=== PATIENT | female | born 1955 | race Caucasian/White ===

== ENCOUNTER 2018-05-30 18:22 | Emergency (ER) | payer OTHER ==
[2018-05-30 19:38] LABS: Absolute Lymphocytes (CBC) 2.4 K/uL (0.7-4.9); Absolute Monocytes 0.8 K/uL (0.1-1.3); Absolute Neutrophil 6.3 K/uL (1.8-8.0); Basophils % 0.4 % (0-1.3); Eosinophils % 1.4 % (0-4.4); Hematocrit 36.7 % (36.0-45.0); Lymphocytes % 24.7 % (15.3-44.8); MCH 26.9 pg (27.0-35.0); MCV 82.2 fL (80-100); MPV 9.3 fL (7.6-11.3); Monocytes % 8.2 % (3.3-12.3); RBC Red Blood Cell Count 4.47 M/uL (3.86-4.86)
[2018-05-30] MEDS ORDERED: FUROSEMIDE 20 MG/ 2ML VIAL ONE (19:46)
[2018-05-30] MEDS ORDERED: ONDANSETRON 4 MG/2 ML VIAL ONE (19:47)
[2018-05-30 20:11] LABS: Albumin 3.1 g/dL (3.4-5.0); Bilirubin Direct 0.2 mg/dL (0-0.2); Bilirubin Total 0.5 mg/dL (0.2-1.0); Potassium 3.9 mmol/L (3.5-5.1); Protein, Total 7.1 g/dL (6.4-8.2); Troponin (Emerg Dept Use Only) 0.02 ng/mL (0.0-0.045)
[2018-05-30 20:12] LABS: Urine Blood 2+ (NEG); Urine Glucose NEGATIVE (NEG); Urine Protein 2+ (NEG)
[2018-05-30] MEDS ORDERED: NITROGLYCERIN 1 GM PKT TD ONE (20:56)
[2018-05-30] MEDS ORDERED: Magnesium Sulfate 2gm IVPB 2 G/50 ML BAG IV ONE (20:56)
--- NOTE | 2018-05-30 22:02 | RAD REPORT ---
EXAM DESCRIPTION: CT - Abdomen Pelvis W Contrast - 05/30/2018 9:52 pm CLINICAL HISTORY: Abdominal pain. COMPARISON: None. TECHNIQUE: Computed axial tomography of the abdomen and pelvis was obtained. 100 cc Isovue-300 is ad ministered intravenously. Oral contrast was given. All CT scans are performed using dose optimization technique as appropriate and may include automated exposure control or mA/KV adjustment according to patient size. FINDINGS: The liver, spleen, pancreas, left adrenal and kidneys appear unremarkable. A 19 millimeter myelolipom a is present within the right adrenal gland The appendix is normal caliber. There is no evidence of diverticulitis IMPRESSION: No acute abnormality is displayed
--- NOTE | 2018-05-30 22:03 | RAD REPORT ---
EXAM DESCRIPTION: Kylah Single View05/30/2018 7:46 pm CLINICAL HISTORY: sob COMPARISON: None FINDINGS: The lungs appear clear of acute infiltrate. The heart is mildly to moderately enlarged. Postsurgical changes involve the chest. The superior most sternal wires broken IMPRESSION: No acute abnormalities displayed
--- NOTE | 2018-05-30 23:46 | EDPHYS ---
Physician Documentation [facility] Name: Indira Chavis Age: 63 yrs Sex: Female : 1955 Arrival Date: 05/30/2018 Time: 18:28 Bed 15 Private MD: ED Physician London Madrid HPI: 05/30 19:56 This 63 yrs old Female presents to ER via Wheelchair with complaints of rn Shortness Of Breath, Abdominal Pain. 19:56 The patient has shortness of breath at rest, with light activity. Onset: The rn symptoms/episode began/occurred 2 day(s) ago. Duration: The symptoms are intermittent. The patient's shortness of breath is aggravated by light activity. Associated signs and symptoms: Pertinent negatives: productive cough, fever, loss of consciousness. Severity of symptoms: At their worst the symptoms were mild in the emergency department the symptoms are unchanged. The patient has experienced similar episodes in the past. Reports sob, non-productive cough, and abd pain for 2 days, states both happened together it seemed, no fever, had some diarrhea but no BM in last 24 hours, no vomiting, vague abd pain.. Historical: - Allergies: 18:42 No Known Allergies; bp - PMHx: 18:42 CHF; Diabetes - IDDM; High Cholesterol; Hypertension; CAD; BLINDNESS; bp - PSHx: 18:42 CABG; bp - Immunization history:: Adult Immunizations up to date. - Social history:: Smoking status: Patient/guardian denies using tobacco. - Ebola Screening: : Patient negative for fever greater than or equal to 101.5 degrees Fahrenheit, and additional compatible Ebola Virus Disease symptoms Patient denies exposure to infectious person Patient denies travel to an Ebola-affected area in the 21 days before illness onset No symptoms or risks identified at this time. - Family history:: not pertinent. - Hospitalizations: : No recent hospitalization is reported. ROS: 19:56 Constitutional: Negative for fever, chills, and weight loss, Eyes: Negative for injury, rn pain, redness, and discharge, Neck: Negative for injury, pain, and swelling, Cardiovascular: Negative for chest pain, palpitations Respiratory: + sob and cough Abdomen/GI: + abd pain, neg for nausea/vomiting Back: Negative for injury and pain, MS/Extremity: Negative for injury and deformity, Neuro: + generalized weakness, no headache Exam: 19:56 Constitutional: Overweight female no acute distress, mild tachypnea Head/Face: rn Normocephalic, atraumatic. Eyes: Pupils equal round and reactive to light, extra-ocular motions intact. Lids and lashes normal. Conjunctiva and sclera are non-icteric and not injected. Cornea within normal limits. Periorbital areas with no swelling, redness, or edema. ENT: dry MM Cardiovascular: bradycradic, regular, no murmur Respiratory: decreased breath sounds left lung base, + mild tachypnea, no wheezing Abdomen/GI: soft, mild mid abd tenderness, no rebound/guarding/masses MS/ Extremity: Pulses equal, no cyanosis. Neurovascular intact. Full, normal range of motion. Equal circumference with 1+ pitting edema bilaterally Neuro: Awake and alert, GCS 15, oriented to person, place, time, and situation. Motor strength 5/5 in all extremities. Sensory grossly intact. Vital Signs: 18:42 BP 193 / 42; Pulse 53; Resp 24; Temp 97.9; Pulse Ox 99% ; Weight 108.41 kg; Height 5 bp ft. 2 in. (157.48 cm); 19:50 BP 200 / 65; Pulse 50; Resp 20; Pulse Ox 97% on R/A; tl2 20:20 BP 204 / 59; Pulse 53; Resp 14; Pulse Ox 100% on 2 lpm NC; tl2 20:45 BP 195 / 93; Pulse 55; Resp 22; Pulse Ox 98% on 2 lpm NC; tl2 21:47 BP 174 / 52; Pulse 55; Resp 18; Pulse Ox 97% on 2 lpm NC; tl2 22:39 BP 171 / 68; Pulse 55; Resp 20; Pulse Ox 98% on 2 lpm NC; tl2 23:32 BP 176 / 61; Pulse 57; Resp 17; Pulse Ox 94% on R/A; tl2 05/31 00:13 BP 171 / 67; Pulse 55; Resp 18; Pulse Ox 95% on R/A; tl2 05/30 18:42 Body Mass Index 43.71 (108.41 kg, 157.48 cm) bp MDM: 05/30 19:10 Patient medically screened. rn 23:43 Differential diagnosis: Anemia Anxiety Reaction asthma, CHF exacerbation, pneumonia, rn Pneumothorax pulmonary edema. Data reviewed: vital signs, nurses notes, lab test result(s), EKG, radiologic studies, plain films, and as a result, I will discharge patient. Counseling: I had a detailed discussion with the patient and/or guardian regarding: the historical points, exam findings, and any diagnostic results supporting the discharge/admit diagnosis, lab results, radiology results, the need for outpatient follow up, to return to the emergency department if symptoms worsen or persist or if there are any questions or concerns that arise at home. Response to treatment: the patient's symptoms have markedly improved after treatment, and as a result, I will discharge patient. ED course: CT abd and w/u negative for abd complaints, BNP elevated, CXR mild pulmonary edema, offered observation overnight for diuresis, patient states feels much better, has been ambulating here, using bathroom, would like to go home, I recommended to double her lasix over next 3 days and pcp f/u, also given return precautions. . 23:46 ED course: Also recommended daily multivitamin for hypomagnesemia with recheck from rn pcp. . 05/30 18:59 Order name: Urine Dipstick--Ancillary (enter results); Complete Time: 20:22 mt 05/30 19:11 Order name: Basic Metabolic Panel rn 05/30 19:11 Order name: CBC with Diff rn 05/30 19:11 Order name: Hepatic Function; Complete Time: 20:22 rn 05/30 19:11 Order name: Lipase; Complete Time: 20:22 rn 05/30 19:11 Order name: Blood Culture Adult (2) rn 05/30 19:11 Order name: XRAY CXR (1 view); Complete Time: 22:12 rn 05/30 19:11 Order name: Magnesium; Complete Time: 20:22 rn 05/30 19:11 Order name: NT PRO-BNP; Complete Time: 20:22 rn 05/30 19:11 Order name: Troponin (emerg Dept Use Only); Complete Time: 20:22 rn 05/30 19:11 Order name: Basic Metabolic Panel; Complete Time: 20:22 EDVA 05/30 19:11 Order name: CBC with Automated Diff; Complete Time: 20:05 EDMS 05/30 19:12 Order name: CT Abd/Pelvis - W/Contrast; Complete Time: 22:12 rn 05/30 19:11 Order name: IV Saline Lock; Complete Time: 19:23 rn 05/30 19:11 Order name: Labs collected and sent; Complete Time: 19:23 rn 05/30 19:11 Order name: EKG; Complete Time: 19:12 rn 05/30 19:11 Order name: Cardiac monitoring; Complete Time: 19:26 rn 05/30 19:11 Order name: EKG - Nurse/Tech; Complete Time: 19:38 rn 05/30 19:11 Order name: O2 Per Protocol; Complete Time: 19:24 rn 05/30 19:11 Order name: O2 Sat Monitoring; Complete Time: 19:23 rn Administered Medications: 19:43 Drug: Lasix 20 mg Route: IVP; Site: right hand; tl2 19:44 Drug: Zofran 4 mg Route: IVP; Site: right hand; tl2 20:30 Follow up: Response: No adverse reaction; Nausea is decreased tl2 21:00 Drug: Magnesium Sulfate 2 grams Route: IVPB; Infused Over: 2 hrs; Site: right hand; tl2 05/31 00:19 Follow up: IV Status: Completed infusion tl2 05/30 21:00 Drug: Nitro-Bid Ointment 2 % 0.5 inches Route: Transdermal; Site: anterior chest wall; tl2 05/31 00:19 Follow up: Response: No adverse reaction; Blood pressure is lowered tl2 Disposition: 05/30/18 23:45 Discharged to Home. Impression: Dyspnea, unspecified, Unspecified abdominal pain, Pulmonary edema. - Condition is Stable. - Discharge Instructions: Abdominal Pain, Adult, Pulmonary Edema, Shortness of Breath. - Medication Reconciliation Form, Thank You Letter, Antibiotic Education, Prescription Opioid Use form. - Follow up: Private Physician; When: 2 - 3 days; Reason: Recheck today's complaints, Re-evaluation by your physician. - Problem is new. - Symptoms have improved. Signatures: Dispatcher [employer] EDMS London Madrid MD MD rn Knox, Taylor, RN RN tl2 Filemon Carrion RN RN bp Corrections: (The following items were deleted from the chart) 00:20 05/30 23:45 05/30/2018 23:45 Discharged to Home. Impression: Dyspnea, unspecified; tl2 Unspecified abdominal pain; Pulmonary edema. Condition is Stable. Forms are Medication Reconciliation Form, Thank You Letter, Antibiotic Education, Prescription Opioid Use. Follow up: Private Physician; When: 2 - 3 days; Reason: Recheck today's complaints, Re-evaluation by your physician. Problem is new. Symptoms have improved. rn
--- NOTE | 2018-05-30 23:46 | ER ---
Nurse's Notes [facility] Name: Indira Chavis Age: 63 yrs Sex: Female : 1955 Arrival Date: 05/30/2018 Time: 18:28 Bed 15 Private MD: Diagnosis: Dyspnea, unspecified;Unspecified abdominal pain;Pulmonary edema Presentation: 05/30 18:41 Presenting complaint: Patient states: I'M SICK AT MY STOMACH, AND I'M SHAKY AND CAN'T bp CATCH MY BREATH. Transition of care: patient was not received from another setting of care. Onset of symptoms was May 30, 2018. Risk Assessment: Do you want to hurt yourself or someone else? Patient reports no desire to harm self or others. Initial Sepsis Screen: Does the patient meet any 2 criteria? No. Patient's initial sepsis screen is negative. Does the patient have a suspected source of infection? No. Patient's initial sepsis screen is negative. Care prior to arrival: None. 18:41 Method Of Arrival: Wheelchair bp 18:41 Acuity: KERMIT 3 bp Triage Assessment: 19:53 Respiratory: Onset: The symptoms/episode began/occurred yesterday, the patient has mild tl2 shortness of breath. Historical: - Allergies: 18:42 No Known Allergies; bp - PMHx: 18:42 CHF; Diabetes - IDDM; High Cholesterol; Hypertension; CAD; BLINDNESS; bp - PSHx: 18:42 CABG; bp - Immunization history:: Adult Immunizations up to date. - Social history:: Smoking status: Patient/guardian denies using tobacco. - Ebola Screening: : Patient negative for fever greater than or equal to 101.5 degrees Fahrenheit, and additional compatible Ebola Virus Disease symptoms Patient denies exposure to infectious person Patient denies travel to an Ebola-affected area in the 21 days before illness onset No symptoms or risks identified at this time. - Family history:: not pertinent. - Hospitalizations: : No recent hospitalization is reported. Screenin:51 Abuse screen: Denies threats or abuse. Nutritional screening: No deficits noted. tl2 Tuberculosis screening: No symptoms or risk factors identified. Fall Risk IV access (20 points). Assessment: 19:51 General: Appears in no apparent distress. uncomfortable, Behavior is calm, cooperative, tl2 appropriate for age. Pain: Complains of pain in abdomen. Neuro: Level of Consciousness is awake, alert, obeys commands, Oriented to person, place, time, situation. Cardiovascular: Denies chest pain, Rhythm is sinus bradycardia. Respiratory: Reports shortness of breath at rest Airway is patent Respiratory effort is even, unlabored, Respiratory pattern is regular, symmetrical, Breath sounds are clear bilaterally. GI: Reports nausea. : No signs and/or symptoms were reported regarding the genitourinary system. Derm: Skin is pink, warm \T\ dry. 19:59 Reassessment: Pt able to use bedside commode. Pt finished CT contrast, CT notified. tl2 20:19 Reassessment: MD notified of pt's elevated BP, no new orders at this time. Notified MD chaparro of critical lab Magnesium of 1.0. 21:48 Reassessment: Patient appears in no apparent distress at this time. Patient and/or tl2 family updated on plan of care and expected duration. Pain level reassessed. Patient is alert, oriented x 3, equal unlabored respirations, skin warm/dry/pink. Pt states breathing has improved. Patient states feeling better. Patient states symptoms have improved. 23:33 Reassessment: Took pt off O2 to see RA sats. will notify MD if pt becomes hypoxic. tl2 05/31 00:13 Reassessment: Patient appears in no apparent distress at this time. Patient and/or tl2 family updated on plan of care and expected duration. Pain level reassessed. Patient is alert, oriented x 3, equal unlabored respirations, skin warm/dry/pink. O2 on RA staying stable at 94-95%. approved for discharge. Pt verbalized understanding of discharge instructions, need for follow up and need to double lasix dose for 3 days. Nitro paste patch removed and skin cleansed of excess medication. Vital Signs: 05/30 18:42 BP 193 / 42; Pulse 53; Resp 24; Temp 97.9; Pulse Ox 99% ; Weight 108.41 kg; Height 5 bp ft. 2 in. (157.48 cm); 19:50 BP 200 / 65; Pulse 50; Resp 20; Pulse Ox 97% on R/A; tl2 20:20 BP 204 / 59; Pulse 53; Resp 14; Pulse Ox 100% on 2 lpm NC; tl2 20:45 BP 195 / 93; Pulse 55; Resp 22; Pulse Ox 98% on 2 lpm NC; tl2 21:47 BP 174 / 52; Pulse 55; Resp 18; Pulse Ox 97% on 2 lpm NC; tl2 22:39 BP 171 / 68; Pulse 55; Resp 20; Pulse Ox 98% on 2 lpm NC; tl2 23:32 BP 176 / 61; Pulse 57; Resp 17; Pulse Ox 94% on R/A; tl2 05/31 00:13 BP 171 / 67; Pulse 55; Resp 18; Pulse Ox 95% on R/A; tl2 05/30 18:42 Body Mass Index 43.71 (108.41 kg, 157.48 cm) bp ED Course: 05/30 18:28 Patient arrived in ED. as 18:41 Triage completed. bp 18:42 Arm band placed on left wrist. bp 19:03 London Madrid MD is Attending Physician. rn 19:23 Ely Solares RN is Primary Nurse. tl2 19:24 Inserted saline lock: 22 gauge in right hand, using aseptic technique. Blood collected. tl2 19:46 XRAY CXR (1 view) In Process Unspecified. EDMS 19:51 Patient has correct armband on for positive identification. Bed in low position. Call tl2 light in reach. Side rails up X 1. Adult w/ patient. 21:51 CT Abd/Pelvis - W/Contrast In Process Unspecified. EDMS 05/31 00:13 No provider procedures requiring assistance completed. IV discontinued, intact, tl2 bleeding controlled, No redness/swelling at site. Pressure dressing applied. Administered Medications: 05/30 19:43 Drug: Lasix 20 mg Route: IVP; Site: right hand; tl2 19:44 Drug: Zofran 4 mg Route: IVP; Site: right hand; tl2 20:30 Follow up: Response: No adverse reaction; Nausea is decreased tl2 21:00 Drug: Magnesium Sulfate 2 grams Route: IVPB; Infused Over: 2 hrs; Site: right hand; tl2 05/31 00:19 Follow up: IV Status: Completed infusion tl2 05/30 21:00 Drug: Nitro-Bid Ointment 2 % 0.5 inches Route: Transdermal; Site: anterior chest wall; tl2 05/31 00:19 Follow up: Response: No adverse reaction; Blood pressure is lowered tl2 Outcome: 05/30 23:45 Discharge ordered by . rn 05/31 00:13 Discharged to home via wheelchair, with family. tl2 Condition: stable Discharge instructions given to patient, family, Instructed on discharge instructions, follow up and referral plans. Demonstrated understanding of instructions, follow-up care. 00:20 Patient left the ED. tl2 Signatures: Dispatcher [employer] EDMS Judie Gayle Roman, MD MD rn Knox, Taylor, RN RN tl2 Filemon Carrion RN RN bp Corrections: (The following items were deleted from the chart) 00:20 00:13 Reassessment: Patient appears in no apparent distress at this time. Patient tl2 and/or family updated on plan of care and expected duration. Pain level reassessed. Patient is alert, oriented x 3, equal unlabored respirations, skin warm/dry/pink. O2 on RA staying stable at 94-95%. MD approved for discharge tl2
--- NOTE | 2018-05-31 08:39 | EKG ---
Test Date: 2018-05-30 Test Time: 19:31:38 Tongue Lining Stitcher: TRAE MEASUREMENT RESULTS: Intervals: Rate: 53 MD: 150 QRSD: 90 QT: 492 QTc: 461 [place]: P: 56 MD: 150 QRS: -24 T: 263 INTERPRETIVE STATEMENTS: Sinus bradycardia Moderate voltage criteria for LVH, may be normal variant T wave abnormality, consider inferior ischemia T wave abnormality, consider anterior ischemia Abnormal ECG No previous ECG available for comparison Electronically Signed On 05-31-18 08:38:15 CDT by Joss Cody
== END 2018-05-31 00:20 | disposition home or self-care (01) ==
LOC: ER 18:22
DX: J81.1 Chronic pulmonary edema (principal); R10.9 Unspecified abdominal pain; I10 Essential (primary) hypertension; I50.9 Heart failure, unspecified; Z95.1 Presence of aortocoronary bypass graft
CPT/HCPCS: 36415; 71045; 74177; 80048; 80076; 81003; 83690; 83735; 83880; 84484; 85025; 87040 ×2; 93005; J1940; J2405; J3475; Q9967; 96365; 96366; 96375; 99284

== ENCOUNTER 2018-06-29 13:08 | Emergency (ER) | payer OTHER ==
[2018-06-29 14:54] LABS: Absolute Lymphocytes (CBC) 1.9 K/uL (0.7-4.9); Absolute Monocytes 0.9 K/uL (0.1-1.3); Absolute Neutrophil 7.4 K/uL (1.8-8.0); Basophils % 0.7 % (0-1.3); Eosinophils % 0.3 % (0-4.4); Hematocrit 40.9 % (36.0-45.0); Lymphocytes % 18.3 % (15.3-44.8); MCH 27.1 pg (27.0-35.0); MPV 9.5 fL (7.6-11.3); Monocytes % 8.6 % (3.3-12.3); RBC Red Blood Cell Count 5.05 M/uL (3.86-4.86)
[2018-06-29 15:13] LABS: Albumin 3.6 g/dL (3.4-5.0); Bilirubin Total 0.6 mg/dL (0.2-1.0); Potassium 3.8 mmol/L (3.5-5.1)
[2018-06-29 15:34] LABS: Urine Blood TRACE (NEG); Urine Glucose NEGATIVE (NEG)
[2018-06-29 15:34] LABS: Urine Amorphous Sediment 2+ /HPF (NONE SEEN); Urine Bacteria 20-50 /HPF (<20); Urine Culture Reflex Order REFLEXED; Urine Mucus 1+ /HPF (NONE SEEN); Urine RBC <5 /HPF (NONE SEEN)
[2018-06-29 15:35] LABS: Urine Protein NEGATIVE (NEG)
--- NOTE | 2018-06-29 15:57 | RAD REPORT ---
EXAM DESCRIPTION: Kylah Gurrola (2 Views)06/29/2018 3:29 pm CLINICAL HISTORY: Cough COMPARISON: May 2018 FINDINGS: The lungs appear clear of acute infiltrate. The heart is mildly to moderately enlarged. P ostsurgical changes involve chest IMPRESSION: No acute abnormalities displayed
--- NOTE | 2018-06-29 16:44 | ER ---
Nurse's Notes [facility] Name: Indira Chavis Age: 63 yrs Sex: Female : 1955 Arrival Date: 06/29/2018 Time: 13:12 Bed 19 Private MD: None, None Diagnosis: Acute upper respiratory infection, unspecified;Urinary tract infection, site not specified Presentation: 06/29 13:26 Presenting complaint: Child states: "She's had an upset stomach for a couple days and aj1 she's had a dry cough for the past 2 months." Patient states "I have this terrible phlegm in my throat and I can't get it out, I'm sick to my stomach, I'm having diarrhea and being plugged up at the same time" Reports SOB. Transition of care: patient was not received from another setting of care. Onset of symptoms was June 29, 2018. Risk Assessment: Do you want to hurt yourself or someone else? Patient reports no desire to harm self or others. Initial Sepsis Screen: Does the patient meet any 2 criteria? No. Patient's initial sepsis screen is negative. Does the patient have a suspected source of infection? Yes: Productive cough/pneumonia. Care prior to arrival: None. 13:26 Method Of Arrival: Wheelchair aj1 13:26 Acuity: KERMIT 3 aj1 Triage Assessment: 13:27 General: Appears in no apparent distress. uncomfortable, Behavior is calm, cooperative, aj1 appropriate for age. Pain: Complains of pain in back and abdomen Pain currently is 6 out of 10 on a pain scale. Neuro: Level of Consciousness is awake, alert, obeys commands. Cardiovascular: Patient's skin is warm and dry. Respiratory: Airway is patent Respiratory effort is even, unlabored, Respiratory pattern is regular, symmetrical. Historical: - Allergies: 13:27 No Known Allergies; aj1 - PMHx: 13:27 BLINDNESS; CAD; CHF; Diabetes - IDDM; High Cholesterol; Hypertension; aj1 - Immunization history:: Flu vaccine is not up to date. - Social history:: Smoking status: Patient/guardian denies using tobacco. - Ebola Screening: : Patient denies travel to an Ebola-affected area in the 21 days before illness onset. Screenin:10 Abuse screen: Denies threats or abuse. Nutritional screening: No deficits noted. em Tuberculosis screening: No symptoms or risk factors identified. Fall Risk None identified. Assessment: 14:10 General: Appears in no apparent distress. uncomfortable, Behavior is calm, cooperative, em Denies fever. Pain: Complains of pain in abdomen. Neuro: Level of Consciousness is awake, alert, obeys commands, Oriented to person, place, time, situation. Cardiovascular: Heart tones S1 S2 present Patient's skin is warm and dry. Respiratory: Reports shortness of breath at rest cough that is productive, pain with cough Airway is patent Respiratory effort is even, unlabored, Respiratory pattern is regular, symmetrical, Breath sounds are clear bilaterally. Onset: The symptoms/episode began/occurred about a month. GI: Abdomen is obese, Reports constipation, diarrhea, nausea. : No signs and/or symptoms were reported regarding the genitourinary system. EENT: No signs and/or symptoms were reported regarding the EENT system. Derm: Skin is intact, Skin is pink, warm \\T\\ dry. Musculoskeletal: Range of motion: intact in all extremities. 14:20 Reassessment: I agree with previous assessment. hb 15:10 Reassessment: Patient appears in no apparent distress at this time. Patient and/or em family updated on plan of care and expected duration. Pain level reassessed. Patient is alert, oriented x 3, equal unlabored respirations, skin warm/dry/pink. Patient states feeling better. 16:00 Reassessment: Patient appears in no apparent distress at this time. Patient and/or em family updated on plan of care and expected duration. Pain level reassessed. Patient is alert, oriented x 3, equal unlabored respirations, skin warm/dry/pink. Patient states feeling better. Patient states symptoms have improved. Vital Signs: 13:27 BP 141 / 76; Pulse 54; Resp 20; Temp 98.0; Pulse Ox 98% on R/A; Weight 104.33 kg (R); aj1 Height 5 ft. 2 in. (157.48 cm) (R); 14:30 BP 190 / 61; Pulse 57; Resp 20; Pulse Ox 95% on R/A; em 15:41 BP 192 / 54; Pulse 58; Resp 19; Pulse Ox 96% on R/A; Pain 4/10; em 16:30 BP 182 / 61; Pulse 57; Resp 18; Pulse Ox 99% on R/A; Pain 4/10; em 13:27 Body Mass Index 42.07 (104.33 kg, 157.48 cm) aj1 16:30 provider notified of BP em ED Course: 13:12 Patient arrived in ED. sb2 13:13 None, None is Private Physician. sb2 13:27 Triage completed. aj1 13:27 Arm band placed on Patient placed in an exam room. aj1 13:33 Jose Reyes LVN is Primary Nurse. em 14:02 Roberto Adkins NP is PHCP. pm1 14:02 Jhonathan Muniz MD is Attending Physician. pm1 14:10 Patient has correct armband on for positive identification. Placed in gown. Bed in low em position. Call light in reach. Adult w/ patient. 14:50 Initial lab(s) drawn, by me, sent to lab. Missed attempt(s): 22 gauge in left em antecubital area. Bleeding controlled, band aid applied, catheter tip intact. 15:06 Urine collected: clean catch specimen, cloudy. dh3 15:29 Chest Pa And Lat (2 Views) XRAY In Process Unspecified. EDMS 15:33 X-ray completed. Patient tolerated procedure well. mh1 17:10 No provider procedures requiring assistance completed. Patient did not have IV access em during this emergency room visit. Administered Medications: 16:57 Drug: Rocephin (cefTRIAXone) 1 grams Route: IM; Site: right gluteus; em 17:17 Follow up: Response: No adverse reaction em Outcome: 16:44 Discharge ordered by MD. pm1 17:16 Discharged to home via wheelchair, with family. em 17:16 Condition: good 17:16 Discharge instructions given to patient, family, Instructed on discharge instructions, follow up and referral plans. medication usage, Demonstrated understanding of instructions, follow-up care, medications, Prescriptions given X 1. 17:17 Patient left the ED. em Addendum: 07/02/2018 08:20 Addendum: Culture Results: Positive urine culture. No further action required. Bacteria h b sensitive to prescribed antibiotic. Signatures: Dispatcher [employer] EDMO Mellisa Cordoba RN RN aj1 Tasha Arias [facility] Jose Reyes LVN LVN em Roberto Adkins NP FIELD REVIEWER pm1 Heavenly Borrego, RN RN Rochelle Euceda dh3 Katherine Lagos sb2
--- NOTE | 2018-06-29 16:44 | EDPHYS ---
Physician Documentation [facility] Name: Indira Chavis Age: 63 yrs Sex: Female : 1955 Arrival Date: 06/29/2018 Time: 13:12 Bed 19 Private MD: None, None ED Physician Jhonathan Muniz HPI: 06/29 16:30 This 63 yrs old Female presents to ER via Wheelchair with complaints of Flu pm1 Symptoms. 16:30 The patient or guardian reports cough, with no sputum. Onset: The symptoms/episode pm1 began/occurred 6 week(s) ago. Severity of symptoms: in the emergency department the symptoms are unchanged. Modifying factors: The symptoms are alleviated by nothing, the symptoms are aggravated by nothing. Associated signs and symptoms: Pertinent positives: urinary frequency, Pertinent negatives: chest pain, fever. Patient is presenting today with complaints of cough and congestion for the past 6 weeks. Patient with dry cough with the sensation that she needs to cough something up. Patient with urinary frequency with small amounts. Historical: - Allergies: 13:27 No Known Allergies; aj1 - PMHx: 13:27 BLINDNESS; CAD; CHF; Diabetes - IDDM; High Cholesterol; Hypertension; aj1 - Immunization history:: Flu vaccine is not up to date. - Social history:: Smoking status: Patient/guardian denies using tobacco. - Ebola Screening: : Patient denies travel to an Ebola-affected area in the 21 days before illness onset. ROS: 16:30 Constitutional: Negative for fever, chills, and weight loss, Eyes: Negative for injury, pm1 pain, redness, and discharge, ENT: Negative for injury, pain, and discharge, Neck: Negative for injury, pain, and swelling, Cardiovascular: Negative for chest pain, palpitations, and edema, Abdomen/GI: Negative for abdominal pain, nausea, vomiting, diarrhea, and constipation, Back: Negative for injury and pain. 16:30 MS/Extremity: Negative for injury and deformity, Skin: Negative for injury, rash, and discoloration, Neuro: Negative for headache, weakness, numbness, tingling, and seizure. 16:30 Respiratory: Positive for cough, Negative for shortness of breath, sputum production, wheezing. 16:30 : Positive for urinary frequency, small amounts, Negative for burning with urination. Exam: 16:30 Constitutional: This is a well developed, well nourished patient who is awake, alert, pm1 and in no acute distress. Head/Face: Normocephalic, atraumatic. ENT: Nares patent. No nasal discharge, no septal abnormalities noted. Tympanic membranes are normal and external auditory canals are clear. Oropharynx with no redness, swelling, or masses, exudates, or evidence of obstruction, uvula midline. Mucous membranes moist. Neck: Trachea midline, no thyromegaly or masses palpated, and no cervical lymphadenopathy. Supple, full range of motion without nuchal rigidity, or vertebral point tenderness. No Meningismus. Chest/axilla: Normal chest wall appearance and motion. Nontender with no deformity. No lesions are appreciated. Cardiovascular: Regular rate and rhythm with a normal S1 and S2. No gallops, murmurs, or rubs. Normal PMI, no JVD. No pulse deficits. Respiratory: Lungs have equal breath sounds bilaterally, clear to auscultation and percussion. No rales, rhonchi or wheezes noted. No increased work of breathing, no retractions or nasal flaring. Abdomen/GI: Soft, non-tender, with normal bowel sounds. No distension or tympany. No guarding or rebound. No evidence of tenderness throughout. Back: No spinal tenderness. No costovertebral tenderness. Full range of motion. Skin: Warm, dry with normal turgor. Normal color with no rashes, no lesions, and no evidence of cellulitis. MS/ Extremity: Pulses equal, no cyanosis. Neurovascular intact. Full, normal range of motion. 16:30 Neuro: Orientation: is normal, Motor: is normal, moves all fours. Vital Signs: 13:27 BP 141 / 76; Pulse 54; Resp 20; Temp 98.0; Pulse Ox 98% on R/A; Weight 104.33 kg (R); aj1 Height 5 ft. 2 in. (157.48 cm) (R); 14:30 BP 190 / 61; Pulse 57; Resp 20; Pulse Ox 95% on R/A; em 15:41 BP 192 / 54; Pulse 58; Resp 19; Pulse Ox 96% on R/A; Pain 4/10; em 16:30 BP 182 / 61; Pulse 57; Resp 18; Pulse Ox 99% on R/A; Pain 4/10; em 13:27 Body Mass Index 42.07 (104.33 kg, 157.48 cm) aj1 16:30 provider notified of BP em MDM: 14:03 Patient medically screened. pm1 16:43 Data reviewed: vital signs. Data interpreted: Pulse oximetry: on room air is 96 %. pm1 Interpretation: normal. Counseling: I had a detailed discussion with the patient and/or guardian regarding: the historical points, exam findings, and any diagnostic results supporting the discharge/admit diagnosis, lab results, radiology results, the need for outpatient follow up, to return to the emergency department if symptoms worsen or persist or if there are any questions or concerns that arise at home. 06/29 14:22 Order name: Flu; Complete Time: 16:10 pm1 06/29 14:22 Order name: CBC with Diff; Complete Time: 16:10 pm1 06/29 14:22 Order name: CMP; Complete Time: 16:10 pm1 06/29 14:22 Order name: Urine Microscopic Only; Complete Time: 16:10 pm1 06/29 15:21 Order name: Urine Dipstick--Ancillary (enter results); Complete Time: 16:10 gm 06/29 15:36 Order name: Urine Culture EDMS 06/29 14:22 Order name: Chest Pa And Lat (2 Views) XRAY; Complete Time: 16:10 pm1 06/29 14:22 Order name: Urine Dipstick-Ancillary (obtain specimen); Complete Time: 15:01 pm1 06/29 14:22 Order name: IV Saline Lock; Complete Time: 16:52 pm1 Administered Medications: 16:57 Drug: Rocephin (cefTRIAXone) 1 grams Route: IM; Site: right gluteus; em 17:17 Follow up: Response: No adverse reaction em Disposition: 06/30 10:08 Co-signature as Attending Physician, Jhonathan Muniz MD I agree with the assessment and kdr plan of care. Disposition: 06/29/18 16:44 Discharged to Home. Impression: Acute upper respiratory infection, unspecified, Urinary tract infection, site not specified. - Condition is Stable. - Discharge Instructions: Urinary Tract Infection, Adult, Upper Respiratory Infection, Adult, [id number]. - Prescriptions for Bactrim DS 800- 160 mg Oral Tablet - take 1 tablet by ORAL route every 12 hours for 10 days; 20 tablet. - Medication Reconciliation Form, Thank You Letter, Antibiotic Education form. - Follow up: Emergency Department; When: As needed; Reason: Worsening of condition. Follow up: Private Physician; When: 2 - 3 days; Reason: Recheck today's complaints, Continuance of care, Re-evaluation by your physician. - Problem is new. - Symptoms have improved. Signatures: Dispatcher [employer] EDMellisa Jones RN RN aj1 Jhonathan Muniz MD MD kdr Munoz, Edgar, CONVOLUTE TUBE WINDER CONVOLUTE TUBE WINDER em Roberto Adkins, PROJECT PLANNER PROJECT PLANNER pm1 Corrections: (The following items were deleted from the chart) 06/29 17:17 16:44 06/29/2018 16:44 Discharged to Home. Impression: Acute upper respiratory em infection, unspecified; Urinary tract infection, site not specified. Condition is Stable. Forms are Medication Reconciliation Form, Thank You Letter, Antibiotic Education, Prescription Opioid Use. Follow up: Emergency Department; When: As needed; Reason: Worsening of condition. Follow up: Private Physician; When: 2 - 3 days; Reason: Recheck today's complaints, Continuance of care, Re-evaluation by your physician. Problem is new. Symptoms have improved. pm1
[2018-06-29] MEDS ORDERED: CEFTRIAXONE 1000 MG/VIAL ONE (16:55)
[2018-06-29] MEDS ORDERED: LIDOCAINE 1% MPF 2 ML AMPULE ONE (16:56)
== END 2018-06-29 17:17 | disposition home or self-care (01) ==
LOC: ER 13:08
DX: J06.9 Acute upper respiratory infection, unspecified (principal); N39.0 Urinary tract infection, site not specified; I10 Essential (primary) hypertension
CPT/HCPCS: 36415; 71046; 80053; 85025; 87077; 87086; 87088; 87186; 87804 ×2; 96372; 99284; J2001; 81003; 81015

== ENCOUNTER 2018-07-09 14:21 | Emergency (ER) | payer OTHER ==
[2018-07-09 15:08] LABS: Absolute Lymphocytes (CBC) 2.7 K/uL (0.7-4.9); Absolute Monocytes 0.9 K/uL (0.1-1.3); Absolute Neutrophil 5.9 K/uL (1.8-8.0); Basophils % 0.8 % (0-1.3); Eosinophils % 1.3 % (0-4.4); Hematocrit 42.3 % (36.0-45.0); Lymphocytes % 27.9 % (15.3-44.8); MCH 26.6 pg (27.0-35.0); MCV 81.6 fL (80-100); MPV 9.2 fL (7.6-11.3); Monocytes % 9.5 % (3.3-12.3); RBC Red Blood Cell Count 5.19 M/uL (3.86-4.86)
[2018-07-09 15:11] LABS: Protime INR 1.08
--- NOTE | 2018-07-09 15:15 | RAD REPORT ---
EXAM DESCRIPTION: RAD - Chest Single View - 07/09/2018 3:02 pm CLINICAL HISTORY: COUGH Chest pain. COMPARISON: Chest Pa And Lat (2 Views) dated 06/29/2018; Chest Single View dated 05/30/2018 FINDINGS: Portable technique limits examination quality. The lungs are underinflated with results in vascular crowding. The heart is upper limit normal in siz e with sternotomy wires present. No displaced fractures. IMPRESSION: Underinflated lungs.
[2018-07-09 15:26] LABS: ALT/SGPT 21 U/L (12-78); AST/SGOT 14 U/L (15-37); Albumin 3.5 g/dL (3.4-5.0); Alkaline Phosphatase 64 U/L (45-117); BUN Blood Urea Nitrogen 27 mg/dL (7-18); Bicarbonate 25 mmol/L (21-32); Bilirubin Direct 0.1 mg/dL (0-0.2); Bilirubin Total 0.5 mg/dL (0.2-1.0); Glucose Level 57 mg/dL (74-106); NT PRO-BNP 742 pg/mL (<125); Potassium 3.7 mmol/L (3.5-5.1); Protein, Total 7.7 g/dL (6.4-8.2); Sodium Level 140 mmol/L (136-145); Troponin (Emerg Dept Use Only) < 0.02 ng/mL (0.0-0.045)
[2018-07-09] MEDS ORDERED: Magnesium Sulfate 2gm IVPB 4 G/100 ML BAG IV ONE (15:42)
--- NOTE | 2018-07-09 16:13 | EDPHYS ---
Physician Documentation [facility] Name: Indira Chavis Age: 63 yrs Sex: Female : 1955 Arrival Date: 07/09/2018 Time: 14:22 Bed 17 Private MD: None, None ED Physician Chris Valentin HPI: 07/09 15:30 This 63 yrs old Female presents to ER via Wheelchair with complaints of Chest pm1 Pain. 15:30 The patient or guardian reports chest pain that is located primarily in the anterior pm1 chest wall, right. Onset: yesterday. The pain does not radiate. Associated signs and symptoms: Pertinent positives: cough, Pertinent negatives: abdominal pain, diaphoresis, dizziness, nausea, shortness of breath, vomiting. The chest pain is described as sharp. Duration: The patient or guardian reports a single episode, that is still ongoing. Modifying factors: the symptoms are aggravated by cough, deep breath, palpation of area, moving right arm. The patient has been recently seen at the [facility] Emergency Department, 8 days ago for cough and diagnosed with URI. Historical: - Allergies: 14:24 No Known Allergies; la1 - PMHx: 14:24 BLINDNESS; CAD; CHF; Diabetes - IDDM; High Cholesterol; Hypertension; Hypothyroidism; la1 - Immunization history:: Adult Immunizations up to date. - Social history:: Smoking status: Patient/guardian denies using tobacco. - Ebola Screening: : No symptoms or risks identified at this time. ROS: 15:30 Constitutional: Negative for fever, chills, and weight loss, Eyes: Negative for injury, pm1 pain, redness, and discharge, ENT: Negative for injury, pain, and discharge, Neck: Negative for injury, pain, and swelling, Abdomen/GI: Negative for abdominal pain, nausea, vomiting, diarrhea, and constipation. 15:30 Back: Negative for injury and pain, : Negative for injury, bleeding, discharge, and swelling, MS/Extremity: Negative for injury and deformity, Skin: Negative for injury, rash, and discoloration, Neuro: Negative for headache, weakness, numbness, tingling, and seizure. 15:30 Cardiovascular: Positive for chest pain, Negative for edema, orthopnea, palpitations. 15:30 Respiratory: Positive for cough, Negative for shortness of breath, sputum production, wheezing. Exam: 15:30 Constitutional: This is a well developed, well nourished patient who is awake, alert, pm1 and in no acute distress. Head/Face: Normocephalic, atraumatic. Eyes: Pupils equal round and reactive to light, extra-ocular motions intact. Lids and lashes normal. Conjunctiva and sclera are non-icteric and not injected. Cornea within normal limits. Periorbital areas with no swelling, redness, or edema. ENT: Nares patent. No nasal discharge, no septal abnormalities noted. Tympanic membranes are normal and external auditory canals are clear. Oropharynx with no redness, swelling, or masses, exudates, or evidence of obstruction, uvula midline. Mucous membranes moist. Neck: Trachea midline, no thyromegaly or masses palpated, and no cervical lymphadenopathy. Supple, full range of motion without nuchal rigidity, or vertebral point tenderness. No Meningismus. 15:30 Cardiovascular: Regular rate and rhythm with a normal S1 and S2. No gallops, murmurs, or rubs. Normal PMI, no JVD. No pulse deficits. Respiratory: Lungs have equal breath sounds bilaterally, clear to auscultation and percussion. No rales, rhonchi or wheezes noted. No increased work of breathing, no retractions or nasal flaring. Abdomen/GI: Soft, non-tender, with normal bowel sounds. No distension or tympany. No guarding or rebound. No evidence of tenderness throughout. Back: No spinal tenderness. No costovertebral tenderness. Full range of motion. Skin: Warm, dry with normal turgor. Normal color with no rashes, no lesions, and no evidence of cellulitis. MS/ Extremity: Pulses equal, no cyanosis. Neurovascular intact. Full, normal range of motion. 15:30 Chest/axilla: Inspection: normal, Palpation: crepitus, is not appreciated, tenderness, that is moderate, of the anterior aspect of right upper chest, that totally reproduces the patient's complaints. 15:30 Neuro: Orientation: is normal, Motor: moves all fours, Sensation: is normal, no obvious gross deficits. Vital Signs: 14:26 Pulse 57; Resp 18; Temp 97.4; Pulse Ox 98% on R/A; Weight 104.33 kg; Height 5 ft. 2 in. la1 (157.48 cm); 14:27 BP 144 / 55; la1 16:04 BP 135 / 55; Pulse 53; Resp 16; Pulse Ox 95% on R/A; Pain 7/10; em 16:45 BP 164 / 52; Pulse 53; Resp 17; Pulse Ox 95% on R/A; Pain 7/10; ph 17:31 BP 143 / 55; Pulse 52; Resp 18; Pulse Ox 99% on R/A; Pain 0/10; ph 14:26 Body Mass Index 42.07 (104.33 kg, 157.48 cm) la1 MDM: 14:31 Patient medically screened. pm1 16:10 Data reviewed: vital signs. Data interpreted: Pulse oximetry: on room air is 98 %. pm1 Interpretation: normal. Counseling: I had a detailed discussion with the patient and/or guardian regarding: the historical points, exam findings, and any diagnostic results supporting the discharge/admit diagnosis, lab results, radiology results, the need for outpatient follow up, to return to the emergency department if symptoms worsen or persist or if there are any questions or concerns that arise at home. 16:39 Differential diagnosis: acute myocardial infarction, acute pericarditis, coronary pm1 artery disease chest wall pain, congestive heart failure pneumonia, URI. 07/09 14:43 Order name: Basic Metabolic Panel; Complete Time: 15:31 pm1 07/09 14:43 Order name: CBC with Diff; Complete Time: 15:17 pm1 07/09 14:43 Order name: LFT's; Complete Time: 15:31 pm1 07/09 14:43 Order name: Magnesium; Complete Time: 15:31 pm1 07/09 14:43 Order name: NT PRO-BNP; Complete Time: 15:31 pm1 07/09 14:43 Order name: PT-INR; Complete Time: 15:26 pm1 07/09 14:43 Order name: Troponin (emerg Dept Use Only); Complete Time: 15:31 pm1 07/09 14:43 Order name: XRAY Chest (1 view); Complete Time: 15:17 pm1 07/09 14:43 Order name: EKG; Complete Time: 14:44 pm1 07/09 14:43 Order name: Cardiac monitoring; Complete Time: 15:01 pm1 07/09 14:43 Order name: EKG - Nurse/Tech; Complete Time: 15:00 pm1 07/09 14:43 Order name: Flu; Complete Time: 15:31 pm1 07/09 14:43 Order name: IV Saline Lock; Complete Time: 15:00 pm1 07/09 14:43 Order name: Labs collected and sent; Complete Time: 15:00 pm1 07/09 14:43 Order name: O2 Per Protocol; Complete Time: 15:00 pm1 07/09 14:43 Order name: O2 Sat Monitoring; Complete Time: 15:00 pm1 Administered Medications: 15:50 Drug: Magnesium Sulfate 2 grams Route: IVPB; Infused Over: 2 hrs; Site: right em antecubital; 17:33 Follow up: Response: No adverse reaction; IV Status: Completed infusion; IV Intake: ph 200ml 16:59 Drug: TORadol 15 mg Route: IVP; Site: right antecubital; ss 17:34 Follow up: Response: No adverse reaction; Pain is decreased ph Disposition: 07/10 11:13 Co-signature as Attending Physician, Chris Valentin MD. Disposition: 07/09/18 16:12 Discharged to Home. Impression: Hypomagnesemia, Cough, Atypical chest pain. - Condition is Stable. - Discharge Instructions: Nonspecific Chest Pain, Chest Wall Pain, Hypomagnesemia, Cough, Adult. - Medication Reconciliation Form, Thank You Letter form. - Follow up: Emergency Department; When: As needed; Reason: Worsening of condition. Follow up: Private Physician; When: 2 - 3 days; Reason: Recheck today's complaints, Continuance of care, Re-evaluation by your physician. - Problem is new. - Symptoms have improved. Signatures: Dispatcher [employer] EDGA Jose Reyes, ONCOLOGY CONSULTANT ONCOLOGY CONSULTANT Chey Dorsey RN RN ss Attema, Lee, RN RN Celine Murphy RN RN Roberto Ta, PUBLIC AREA SUPERVISOR PUBLIC AREA SUPERVISOR pm1 Chris Valentin MD MD Corrections: (The following items were deleted from the chart) 07/09 16:16 16:12 07/09/2018 16:12 Discharged to Home. Impression: Hypomagnesemia; Cough. Condition pm1 is Stable. Forms are Medication Reconciliation Form, Thank You Letter, Antibiotic Education, Prescription Opioid Use. Follow up: Emergency Department; When: As needed; Reason: Worsening of condition. Follow up: Private Physician; When: 2 - 3 days; Reason: Recheck today's complaints, Continuance of care, Re-evaluation by your physician. Problem is new. Symptoms have improved. pm1 16:16 16:16 07/09/2018 16:12 Discharged to Home. Impression: Hypomagnesemia; Cough. Condition pm1 is Stable. Forms are Medication Reconciliation Form, Thank You Letter, Antibiotic Education, Prescription Opioid Use. Follow up: Emergency Department; When: As needed; Reason: Worsening of condition. Follow up: Private Physician; When: 2 - 3 days; Reason: Recheck today's complaints, Continuance of care, Re-evaluation by your physician. Problem is new. Symptoms have improved. pm1 17:34 16:16 07/09/2018 16:12 Discharged to Home. Impression: Hypomagnesemia; Cough; Atypical ph chest pain. Condition is Stable. Forms are Medication Reconciliation Form, Thank You Letter, Antibiotic Education, Prescription Opioid Use. Follow up: Emergency Department; When: As needed; Reason: Worsening of condition. Follow up: Private Physician; When: 2 - 3 days; Reason: Recheck today's complaints, Continuance of care, Re-evaluation by your physician. Problem is new. Symptoms have improved. pm1
--- NOTE | 2018-07-09 16:13 | ER ---
Nurse's Notes [facility] Name: Indira Chavis Age: 63 yrs Sex: Female : 1955 Arrival Date: 07/09/2018 Time: 14:22 Bed 17 Private MD: None, None Diagnosis: Hypomagnesemia;Cough;Atypical chest pain Presentation: 07/09 14:24 Presenting complaint: Patient states: I have been coughing a lot for the last 3 weeks la1 and yesterday I started have a poking pain in my chest. Pt denies SOB. Transition of care: patient was not received from another setting of care. Onset of symptoms was July 09, 2018. Risk Assessment: Do you want to hurt yourself or someone else? Patient reports no desire to harm self or others. Initial Sepsis Screen: Does the patient meet any 2 criteria? No. Patient's initial sepsis screen is negative. Does the patient have a suspected source of infection? No. Patient's initial sepsis screen is negative. Care prior to arrival: None. 14:24 Method Of Arrival: Wheelchair la1 14:24 Acuity: [place] 3 la1 Historical: - Allergies: 14:24 No Known Allergies; la1 - PMHx: 14:24 BLINDNESS; CAD; CHF; Diabetes - IDDM; High Cholesterol; Hypertension; Hypothyroidism; la1 - Immunization history:: Adult Immunizations up to date. - Social history:: Smoking status: Patient/guardian denies using tobacco. - Ebola Screening: : No symptoms or risks identified at this time. Screenin:53 Abuse screen: Denies threats or abuse. Nutritional screening: No deficits noted. em Tuberculosis screening: No symptoms or risk factors identified. Fall Risk None identified. Assessment: 14:49 General: Appears in no apparent distress. comfortable, Behavior is calm, cooperative, em Reports feeling ill for fatigue for Denies fever. Pain: Complains of pain in chest Pain does not radiate. Pain currently is 7 out of 10 on a pain scale. Quality of pain is described as pressure, Pain began. Neuro: Level of Consciousness is awake, alert, obeys commands, Oriented to person, place, time, situation, Speech is normal, Facial symmetry appears normal, Reports. Cardiovascular: Heart tones S1 S2 present Capillary refill < 3 seconds Patient's skin is warm and dry. Rhythm is sinus bradycardia. Respiratory: Airway is patent Respiratory effort is even, unlabored, Respiratory pattern is regular, symmetrical, Breath sounds are clear bilaterally. GI: Reports nausea, Patient currently denies diarrhea, vomiting. : No signs and/or symptoms were reported regarding the genitourinary system. Derm: Skin is intact, Skin is pink, warm \T\ dry. Musculoskeletal: Capillary refill < 3 seconds, Range of motion: intact in all extremities. 14:52 General: The previous assessment is accurate. Call light remains within reach. . ss 15:30 Reassessment: Roebrto Adkins NP notified of critical Mag value, 1.0. ss 15:40 Reassessment: Patient appears in no apparent distress at this time. Patient and/or em family updated on plan of care and expected duration. Pain level reassessed. Patient is alert, oriented x 3, equal unlabored respirations, skin warm/dry/pink. pt ambulated to restroom with assistance, tolerated well. 16:38 Reassessment: Patient appears in no apparent distress at this time. Patient and/or em family updated on plan of care and expected duration. Pain level reassessed. Patient is alert, oriented x 3, equal unlabored respirations, skin warm/dry/pink. pt discharged, pending completion of IV magnesium. 17:30 Reassessment: Patient appears in no apparent distress at this time. Patient and/or ph family updated on plan of care and expected duration. Pain level reassessed. Patient is alert, oriented x 3, equal unlabored respirations, skin warm/dry/pink. rates pain 0/10 Patient states feeling better. Patient states symptoms have improved. Vital Signs: 14:26 Pulse 57; Resp 18; Temp 97.4; Pulse Ox 98% on R/A; Weight 104.33 kg; Height 5 ft. 2 in. la1 (157.48 cm); 14:27 BP 144 / 55; la1 16:04 BP 135 / 55; Pulse 53; Resp 16; Pulse Ox 95% on R/A; Pain 7/10; em 16:45 BP 164 / 52; Pulse 53; Resp 17; Pulse Ox 95% on R/A; Pain 7/10; ph 17:31 BP 143 / 55; Pulse 52; Resp 18; Pulse Ox 99% on R/A; Pain 0/10; ph 14:26 Body Mass Index 42.07 (104.33 kg, 157.48 cm) la1 ED Course: 14:22 Patient arrived in ED. mr 14:22 None, None is Private Physician. mr 14:25 Triage completed. la1 14:25 Arm band placed on left wrist. la1 14:30 Roberto Adkins NP is PHCP. pm1 14:30 Chris Valentin MD is Attending Physician. pm1 14:37 Jose Reyes LVN is Primary Nurse. em 14:53 Patient has correct armband on for positive identification. molder feeder on. Pulse em ox on. NIBP on. 14:53 Patient maintains SpO2 saturation greater than 95% on room air. em 14:56 Initial lab(s) drawn, by me, sent to lab. Flu and/or RSV swab sent to lab. Inserted dh3 saline lock: 22 gauge in right antecubital area, using aseptic technique. Blood collected. 15:02 XRAY Chest (1 view) In Process Unspecified. EDMS 17:32 No provider procedures requiring assistance completed. IV discontinued, intact, ph bleeding controlled, No redness/swelling at site. Pressure dressing applied. Administered Medications: 15:50 Drug: Magnesium Sulfate 2 grams Route: IVPB; Infused Over: 2 hrs; Site: right em antecubital; 17:33 Follow up: Response: No adverse reaction; IV Status: Completed infusion; IV Intake: ph 200ml 16:59 Drug: TORadol 15 mg Route: IVP; Site: right antecubital; ss 17:34 Follow up: Response: No adverse reaction; Pain is decreased ph Intake: 17:33 IV: 200ml; Total: 200ml. ph Outcome: 16:12 Discharge ordered by . pm1 17:32 Discharged to home via wheelchair, with family. ph 17:32 Condition: good 17:32 Discharge instructions given to patient, family, Instructed on discharge instructions, follow up and referral plans. Demonstrated understanding of instructions, follow-up care. 17:34 Patient left the ED. ph Signatures: Dispatcher [employer] Juliette Linda mr Jose Reyes LVN LVN em Chey Carolina RN RN ss Trip Ashley RN RN la1 Celine Herron RN RN Roberto Adkins, [facility] N[facility] pm1 Rochelle Briseno dh3 Corrections: (The following items were deleted from the chart) 16:39 16:36 Reassessment: Patient appears in no apparent distress at this time. Patient em and/or family updated on plan of care and expected duration. Pain level reassessed. Patient is alert, oriented x 3, equal unlabored respirations, skin warm/dry/pink. pt calling for a ride home em 17:14 17:13 Reassessment: [facility]
[2018-07-09] MEDS ORDERED: KETOROLAC 30 MG/ML INJ ONE (16:56)
--- NOTE | 2018-07-09 20:20 | EKG ---
Test Date: 2018-07-09 Test Time: 14:33:05 Heavy Equipment Diesel Mechanic: NICK MEASUREMENT RESULTS: Intervals: Rate: 56 NE: 138 QRSD: 94 QT: 406 QTc: 391 [place]: P: 37 NE: 138 QRS: -23 T: 265 INTERPRETIVE STATEMENTS: Sinus bradycardia Voltage criteria for left ventricular hypertrophy T wave abnormality, consider inferior ischemia Abnormal ECG Compared to ECG 05/30/2018 19:31:38 No significant changes Electronically Signed On 07-09-18 20:19:41 FITTER/WELDER by Joss Cody
== END 2018-07-09 17:34 | disposition home or self-care (01) ==
LOC: ER 14:21
DX: E83.42 Hypomagnesemia (principal); R07.89 Other chest pain; R05 Cough; R94.31 Abnormal electrocardiogram [ECG] [EKG]; R00.1 Bradycardia, unspecified; J98.4 Other disorders of lung
CPT/HCPCS: 36415; 71045; 80048; 80076; 83735; 83880; 84484; 85025; 85610; 87804 ×2; 93005; 96365; 96366; 96375; 99285; J3475

== ENCOUNTER 2018-08-02 07:56 | Emergency (ER) | payer OTHER ==
[2018-08-02] MEDS ORDERED: METOPROLOL TAR 50 MG TAB ONE (08:32)
[2018-08-02] MEDS ORDERED: ONDANSETRON 4 MG (ODT) TAB ONE (08:32)
[2018-08-02] MEDS ORDERED: LISINOPRIL 20 MG TAB ONE (08:32)
[2018-08-02 08:46] LABS: Urine Blood TRACE (NEG); Urine Glucose NEGATIVE (NEG); Urine Protein 1+ (NEG); Urine pH 5.5 (5.0-7.0)
[2018-08-02 08:47] LABS: Urine Bacteria 20-50 /HPF (<20); Urine RBC <5 /HPF (NONE SEEN)
[2018-08-02 08:48] LABS: Urine Culture Reflex Order NOT NEEDED
[2018-08-02 09:25] LABS: Albumin 3.3 g/dL (3.4-5.0); Bilirubin Direct 0.2 mg/dL (0-0.2); Bilirubin Total 0.5 mg/dL (0.2-1.0); Protein, Total 7.2 g/dL (6.4-8.2)
[2018-08-02 09:47] LABS: Absolute Lymphocytes (CBC) 2.1 K/uL (0.7-4.9); Absolute Monocytes 0.7 K/uL (0.1-1.3); Absolute Neutrophil 7.1 K/uL (1.8-8.0); Basophils % 1.5 % (0-1.3); Eosinophils % 0.7 % (0-4.4); Hematocrit 39.5 % (36.0-45.0); Lymphocytes % 20.4 % (15.3-44.8); MCH 27.3 pg (27.0-35.0); MCV 80.8 fL (80-100); MPV 9.3 fL (7.6-11.3); Monocytes % 7.2 % (3.3-12.3); RBC Red Blood Cell Count 4.89 M/uL (3.86-4.86)
--- NOTE | 2018-08-02 10:50 | RAD REPORT ---
EXAM DESCRIPTION: CTAbdomen Pelvis W Contrast - 08/02/2018 10:40 am CLINICAL HISTORY: Abdominal pain. ABD PAIN COMPARISON: Abdomen Pelvis W Contrast dated 05/30/2018 TECHNIQUE: Biphasic CT imaging of the abdomen and pelvis was performed with 100 ml non-ionic IV cont rast. All CT scans are performed using dose optimization technique as appropriate and may include automated exposure control or mA/KV adjustment according to patient size. FINDINGS: The lung bases are clear. The liver, spleen, pancreas and kidneys are within normal limits. Subtle nodularity is seen affecting the left adrenal gland, unchanged. 24 x 15 mm benign-appearing fat containing right adrenal mass lik ravin a myelolipoma. No bowel obstruction, free air, free fluid or abscess. Aortic atherosclerosis. The appendix is normal . Scattered colonic diverticula. No evidence of diverticulitis. No evidence of significant lymphadeno oleg. Moderate lumbar degenerative changes. IMPRESSION: No acute intra-abdominal or pelvic finding.
--- NOTE | 2018-08-02 11:00 | ER ---
Nurse's Notes [facility] Name: Indira Chavis Age: 63 yrs Sex: Female : 1955 Arrival Date: 08/02/2018 Time: 07:59 Bed 15 Private MD: None, None Diagnosis: Urinary tract infection, site not specified Presentation: 08/02 08:12 Presenting complaint: Patient states: Prescribed Bactrim 4 weeks ago for a UTI, took it jl7 for 3 days and made her feel worse so she stopped. Started having right low back pain 5 days ago, nausea, fever and chills started 3 days ago and reports urine odor is strong. Has not taken HTN medication in 3 or 4 days. Transition of care: patient was not received from another setting of care. Onset of symptoms was July 06, 2018. Risk Assessment: Do you want to hurt yourself or someone else? Patient reports no desire to harm self or others. Care prior to arrival: None. 08:12 Method Of Arrival: Ambulatory jl7 08:12 Acuity: KERMIT 3 jl7 12:20 Initial Sepsis Screen: Does the patient meet any 2 criteria? No. Patient's initial bp sepsis screen is negative. Does the patient have a suspected source of infection? No. Patient's initial sepsis screen is negative. Triage Assessment: 08:15 General: Appears distressed, uncomfortable, obese, Behavior is cooperative, appropriate bp for age, anxious. Pain: Complains of pain in back. Neuro: Level of Consciousness is awake, alert, obeys commands, Oriented to person, place, time, situation, Appropriate for age. Cardiovascular: No deficits noted. Respiratory: Airway is patent Respiratory effort is even, unlabored, Respiratory pattern is regular, symmetrical. GI: Reports nausea. : Reports burning with urination, pain in right flank(s). Derm: No deficits noted. Musculoskeletal: Circulation, motion, and sensation intact. Range of motion: intact in all extremities. Historical: - Allergies: 08:14 No Known Allergies; jl7 - PMHx: 08:14 BLINDNESS; CAD; CHF; Diabetes - IDDM; High Cholesterol; Hypertension; Hypothyroidism; jl7 - Immunization history:: Adult Immunizations up to date. - Ebola Screening: : No symptoms or risks identified at this time. - Family history:: not pertinent. - Social history:: Smoking status: unknown. - Hospitalizations: : No recent hospitalization is reported. Screenin:15 Abuse screen: Denies threats or abuse. Denies injuries from another. Nutritional bp screening: No deficits noted. Tuberculosis screening: No symptoms or risk factors identified. Fall Risk None identified. Assessment: 08:15 General: SEE TRIAGE NOTE. bp 08:15 GI: Abdomen is obese, Bowel sounds present X 4 quads. bp 09:00 Reassessment: PO CONTRAST COMPLETED, CT NOTIFIED. bp 10:50 Reassessment: PT RETURNED FROM CT. ALL CURRENT ORDERS COMPLETED, RESULTS PENDING. bp 11:17 Reassessment: D/C ON HOLD FOR IVF INFUSION. bp 12:19 Reassessment: PT D/C HOME VIA W/C WITH FAMILY, DX WITH UTI. bp Vital Signs: 08:14 BP 218 / 78; Pulse 71; Resp 22 S; Temp 97.8(O); Pulse Ox 99% on R/A; Weight 105.23 kg jl7 (R); Height 5 ft. 2 in. (157.48 cm) (R); Pain 7/10; 09:47 BP 181 / 59; Pulse 59; Resp 14; Pulse Ox 95% ; bp 10:51 BP 185 / 61; Pulse 59; Resp 14; Pulse Ox 95% ; bp 08:14 Body Mass Index 42.43 (105.23 kg, 157.48 cm) jl7 ED Course: 07:59 Patient arrived in ED. mr 08:00 None, None is Private Physician. mr 08:05 Filemon Carrion, RN is Primary Nurse. bp 08:05 London Madrid MD is Attending Physician. rn 08:14 Triage completed. jl7 08:14 Arm band placed on right wrist. jl7 08:15 Patient has correct armband on for positive identification. Bed in low position. Call bp light in reach. Side rails up X2. Adult w/ patient. 09:01 Inserted saline lock: 22 gauge in left forearm, using aseptic technique. Blood bp collected. 10:[address] sj 10:39 CT Abd/Pelvis - W/Contrast In Process Unspecified. EDMS 10:43 CT completed. Patient tolerated procedure well. Patient moved back from CT. vr 12:19 No provider procedures requiring assistance completed. IV discontinued, intact, bp bleeding controlled, No redness/swelling at site. Pressure dressing applied. Administered Medications: 08:25 Drug: Zofran 4 mg Route: PO; aa5 09:46 Follow up: Response: Nausea is decreased bp 08:26 Drug: Metoprolol TARTRATE (Lopressor) 50 mg Route: PO; aa5 09:47 Follow up: Response: No adverse reaction bp 08:26 Drug: Lisinopril 20 mg Route: PO; aa5 09:46 Follow up: Response: No adverse reaction bp 11:10 Drug: NS 0.9% 500 ml Route: IV; Rate: bolus; Site: left forearm; bp 12:15 Follow up: IV Status: Completed infusion; IV Intake: 500ml bp 11:10 Drug: Zofran 4 mg Route: IVP; Site: left forearm; bp 12:15 Follow up: Response: No adverse reaction; Nausea is decreased bp Point of Care Testing: Blood Glucose: 08:22 Blood Glucose: 149 mg/dL; bp Ranges: Intake: 12:15 IV: 500ml; Total: 500ml. bp Outcome: 10:59 Discharge ordered by MD. rn 12:20 Discharged to home via wheelchair, with family. bp 12:20 Condition: stable 12:20 Discharge instructions given to patient, family, Instructed on discharge instructions, follow up and referral plans. medication usage, Demonstrated understanding of instructions, follow-up care, medications, Prescriptions given X 4. 12:21 Patient left the ED. bp Signatures: Dispatcher [employer] [facility] Juliette Lewis SusLondon Deleon MD MD rn Calderon, Audri, RN RN Patricia Tian Jahala, RN RN jl7 Filemon Carrion RN RN bp Corrections: (The following items were deleted from the chart) 08:15 08:12 Presenting complaint: Patient states: Prescribed Bactrim 4 weeks ago for a UTI, jlSharron took it for 3 days and made her feel worse so she stopped. Started having right low back pain 5 days ago, nausea, fever and chills started 3 days ago and reports urine odor is strong. uzma
--- NOTE | 2018-08-02 11:00 | EDPHYS ---
Physician Documentation [facility] Name: Indira Chavis Age: 63 yrs Sex: Female : 1955 Arrival Date: 08/02/2018 Time: 07:59 Bed 15 Private MD: None, None ED Physician London Madrid HPI: 08/02 08:17 This 63 yrs old Female presents to ER via Ambulatory with complaints of rn Nausea, Back Pain. 08:17 The patient presents to the emergency department with nausea. Onset: The rn symptoms/episode began/occurred 3 day(s) ago. Possible causes: unknown. Severity of symptoms: At their worst the symptoms were mild in the emergency department the symptoms are unchanged. 08:17 The patient has experienced similar episodes in the past. Reports feels like has urine rn infection, + subjective fever, + foul smelling urine, + low back pain, + nausea. Feels similar to previous UTIs, seen at clinic yesterday, was going to get abx prescription, but got lightheaded so they told her to come to ER. Didn't come until today. Glucose 151 this morning. Has run out of her BP meds. . Historical: - Allergies: 08:14 No Known Allergies; jl7 - PMHx: 08:14 BLINDNESS; CAD; CHF; Diabetes - IDDM; High Cholesterol; Hypertension; Hypothyroidism; jl7 - Immunization history:: Adult Immunizations up to date. - Ebola Screening: : No symptoms or risks identified at this time. - Family history:: not pertinent. - Social history:: Smoking status: unknown. - Hospitalizations: : No recent hospitalization is reported. ROS: 08:17 Constitutional: Negative for chills, and weight loss, ENT: Negative for injury, pain, rn and discharge, Cardiovascular: Negative for chest pain, palpitations, and edema, Respiratory: Negative for shortness of breath, cough, wheezing, and pleuritic chest pain, Abdomen/GI: Negative for vomiting, diarrhea, and constipation, Back: Negative for injury MS/Extremity: Negative for injury and deformity, Skin: Negative for injury, rash, and discoloration, Neuro: Negative for headache, numbness, tingling, and seizure. Exam: 08:17 Constitutional: This is a well developed, well nourished patient who is awake, alert, rn and in no acute distress. Head/Face: Normocephalic, atraumatic. ENT: MMM Cardiovascular: Regular rate and rhythm. No pulse deficits. Respiratory: Lungs have equal breath sounds bilaterally, clear to auscultation. No increased work of breathing, no retractions or nasal flaring. Abdomen/GI: soft, mild suprapubic tenderness, no rebound Back: No spinal tenderness. No costovertebral tenderness. MS/ Extremity: Pulses equal, no cyanosis. Neurovascular intact. Full, normal range of motion. Equal circumference. Neuro: Awake and alert, GCS 15, oriented to person, place, time, and situation. Cranial nerves II-XII grossly intact. Motor strength 5/5 in all extremities. Sensory grossly intact. Vital Signs: 08:14 BP 218 / 78; Pulse 71; Resp 22 S; Temp 97.8(O); Pulse Ox 99% on R/A; Weight 105.23 kg jl7 (R); Height 5 ft. 2 in. (157.48 cm) (R); Pain 7/10; 09:47 BP 181 / 59; Pulse 59; Resp 14; Pulse Ox 95% ; bp 10:51 BP 185 / 61; Pulse 59; Resp 14; Pulse Ox 95% ; bp 08:14 Body Mass Index 42.43 (105.23 kg, 157.48 cm) jl7 MDM: 08:05 Patient medically screened. rn 10:57 Differential diagnosis: UTI, non-specific pain. Data reviewed: vital signs, nurses rn notes, lab test result(s), radiologic studies, CT scan, and as a result, I will discharge patient. Counseling: I had a detailed discussion with the patient and/or guardian regarding: the historical points, exam findings, and any diagnostic results supporting the discharge/admit diagnosis, lab results, radiology results, the need for outpatient follow up, to return to the emergency department if symptoms worsen or persist or if there are any questions or concerns that arise at home. Response to treatment: the patient's symptoms have mildly improved after treatment, and as a result, I will discharge patient. Special discussion: I discussed with the patient/guardian in detail that at this point there is no indication for admission to the hospital. It is understood, however, that if the symptoms persist or worsen the patient needs to return immediately for re-evaluation. 08/02 08:16 Order name: Urine Microscopic Only; Complete Time: 09:12 rn 08/02 08:16 Order name: Urine Culture rn 08/02 08:27 Order name: Basic Metabolic Panel; Complete Time: 09:32 rn 08/02 08:27 Order name: CBC with Diff; Complete Time: 09:56 rn 08/02 08:27 Order name: Hepatic Function; Complete Time: 09:32 rn 08/02 08:27 Order name: Lipase; Complete Time: 09:32 rn 08/02 08:16 Order name: Urine Dipstick-Ancillary (obtain specimen); Complete Time: 08:22 rn 08/02 08:27 Order name: CT Abd/Pelvis - W/Contrast; Complete Time: 10:56 rn 12 08:35 Order name: Urine Dipstick--Ancillary (enter results); Complete Time: 09:12 bd 08/02 08:16 Order name: Glucose Level; Complete Time: 08:22 rn 12 08:27 Order name: IV Saline Lock; Complete Time: 09:01 rn 12 08:27 Order name: Labs collected and sent; Complete Time: 09:01 rn 08/02 09:15 Order name: Labs - recollect needed; Complete Time: 09:46 bd Administered Medications: 08:25 Drug: Zofran 4 mg Route: PO; aa5 09:46 Follow up: Response: Nausea is decreased bp 08:26 Drug: Metoprolol TARTRATE (Lopressor) 50 mg Route: PO; aa5 09:47 Follow up: Response: No adverse reaction bp 08:26 Drug: Lisinopril 20 mg Route: PO; aa5 09:46 Follow up: Response: No adverse reaction bp 11:10 Drug: NS 0.9% 500 ml Route: IV; Rate: bolus; Site: left forearm; bp 12:15 Follow up: IV Status: Completed infusion; IV Intake: 500ml bp 11:10 Drug: Zofran 4 mg Route: IVP; Site: left forearm; bp 12:15 Follow up: Response: No adverse reaction; Nausea is decreased bp Point of Care Testing: Blood Glucose: 08:22 Blood Glucose: 149 mg/dL; bp Ranges: Critical Glucose Levels:Adult <50 mg/dl or >400 mg/dl <40 mg/dl or >180 mg/dl Disposition: 08/02/18 10:59 Discharged to Home. Impression: Urinary tract infection, site not specified. - Condition is Stable. - Discharge Instructions: Urinary Tract Infection, Adult. - Prescriptions for Macrobid 100 mg Oral Capsule - take 1 capsule by ORAL route every 12 hours for 10 days; 20 capsule. Zofran ODT 4 mg Oral tablet,disintegrating - place 1 tablet by TRANSLINGUAL route every 8 hours As needed; 20 tablet. metoprolol succinate 50 mg Oral tablet extended release 24 hr - take 1 tablet by ORAL route once daily; 30 tablet. Lisinopril 20 mg Oral Tablet - take 1 tablet by ORAL route once daily; 30 tablet. - Family Work Release, Medication Reconciliation Form, Thank You Letter, Antibiotic Education, Prescription Opioid Use form. - Follow up: Private Physician; When: As needed; Reason: Recheck today's complaints, Re-evaluation by your physician. - Problem is new. - Symptoms have improved. Signatures: Dispatcher [employer] [facility] Winifred Schmidt Roman, MD MD rn Calderon, Audri, RN RN aa5 Fab Shaw RN RN jl7 Filemon Carrion RN RN bp Corrections: (The following items were deleted from the chart) 12:21 10:59 08/02/2018 10:59 Discharged to Home. Impression: Urinary tract infection, site bp not specified. Condition is Stable. Forms are Medication Reconciliation Form, Thank You Letter, Antibiotic Education, Prescription Opioid Use. Follow up: Private Physician; When: As needed; Reason: Recheck today's complaints, Re-evaluation by your physician. Problem is new. Symptoms have improved. rn
[2018-08-02] MEDS ORDERED: NA CHLORIDE 0.9% 500 ML ONE (11:20)
[2018-08-02] MEDS ORDERED: ONDANSETRON 4 MG/2 ML VIAL ONE (11:20)
== END 2018-08-02 12:21 | disposition home or self-care (01) ==
LOC: ER 07:56
DX: N39.0 Urinary tract infection, site not specified (principal); I10 Essential (primary) hypertension
CPT/HCPCS: 36415; 74177; 80048; 80076; 83690; 85025; 87086; 87088; J2405; Q9967; 81003; 81015

== ENCOUNTER 2019-01-17 11:48 | Emergency (ER) | payer OTHER ==
--- OUTSIDE RECORDS SUMMARY | 2019-01-17 11:50 | XMS REPORT ---
:1955 [facility] Providers Name Role Phone Uriel Zepeda Provider Role Unavailable Allergies, Adverse Reactions, Alerts Substance Reaction Event Type N.K.D.A. Info Not Available Non Drug Allergy Problems Problem Type Condition Code Onset Dates Condition Status Problem Blindness H54.7 Active Problem Hypothyroidism, unspecified type E03.9 Active Problem Congestive heart failure, I50.9 Active unspecified HF chronicity, unspecified heart failure type Problem Depression with anxiety F41.8 Active Problem Obstructive sleep apnea G47.33 Active Problem Essential (primary) hypertension I10 Active Problem Insomnia due to medical condition G47.01 Active Problem Hyperlipidemia, unspecified E78.5 Active hyperlipidemia type Problem [facility]CI current use of insulin Z79.4 Active Problem Type 2 diabetes mellitus without E11.9 Active complications Assessment Obstructive sleep apnea G47.33 Active Assessment Hypothyroidism, unspecified type E03.9 Active Assessment Insomnia due to medical condition G47.01 Active Assessment Blindness H54.7 Active Assessment Congestive heart failure, I50.9 Active unspecified HF chronicity, unspecified heart failure type Assessment Hyperlipidemia, unspecified E78.5 Active hyperlipidemia type Assessment [facility] current use of insulin Z79.4 Active Assessment Type 2 diabetes mellitus without E11.9 Active complications Assessment Essential (primary) hypertension I10 Active Medications Medication Code Code Instructions Start End Status Dosage System Date Date Metoprolol [facility] 37617861113 100 MG Oral Active not Succinate ER defined Methocarbamol [facility] 77086950138 750 MG Oral Active not defined Atorvastatin ND 59046514265 40 MG Orally Active 1 tablet Calcium Once a day Trazodone HCl [facility] 58486004861 100 MG Oral Active not defined Furosemide [facility] [address]-37 20 MG Oral Active 1 tablet Once a day Levemir ND 61511518969 100 UNIT/ML Active as FlexTouch Subcutaneous directed daily Levemir ND 07720389512 Sub Q Once Inactive 20 units FlexTouch Daily Lisinopril [facility] 85594339088 40 MG Orally Active 1 tablet Once a day Jardiance [facility] 81214653334 10 MG Orally Nov Active 1 tablet Once a day 2018 NovoLIN R ReliOn [facility] 40489068501 100 UNIT/ML May Active not Injection 2018 Metformin HCl [facility] 39305213629 850 MG Oral Active not defined Levothyroxine [facility] [address]-14 75 MCG Oral Active 1 tablet Sodium Once a day on an empty stomach in the morning Citalopram [facility] 99400041116 40 MG Oral Active not Hydrobromide defined Results No Known Results Summary Purpose [employer]Clinical[employer] Submission
[2019-01-17] MEDS ORDERED: HYDROCODONE/APAP 5/325 MG TAB ONE ×2 (13:01→14:18)
--- NOTE | 2019-01-17 13:39 | RAD REPORT ---
EXAM DESCRIPTION: RAD - Chest Single View - 01/17/2019 1:33 pm CLINICAL HISTORY: pain, fall injury Chest pain. COMPARISON: Chest Single View dated 07/09/2018; Chest Pa And Lat (2 Views) dated 06/29/2018; Chest Si ngle View dated 05/30/2018; Ribs Right dated 01/17/2019; Shoulder Right 2 View dated 01/17/2019 FINDINGS: Portable technique limits examination quality. Emphysematous changes are present throughout the lungs. Small right pleural effusion is suspected. Mu ltiple mildly displaced right lateral rib fractures are present.Sternotomy wires noted. IMPRESSION: Multiple mildly displaced right lateral rib fractures are seen with a small right pleura l effusion.
--- NOTE | 2019-01-17 13:40 | RAD REPORT ---
EXAM DESCRIPTION: RAD - Shoulder Right 2 View - 01/17/2019 1:33 pm CLINICAL HISTORY: Fall injury;Pain COMPARISON: No comparisons FINDINGS: Prominent AC joint and glenohumeral joint arthritic changes are present. No acute fracture or dislocation of the right shoulder. Multiple lateral right rib fractures are seen, mildly displace d.
--- NOTE | 2019-01-17 13:41 | RAD REPORT ---
EXAM DESCRIPTION: RAD - Ribs Right - 01/17/2019 1:32 pm CLINICAL HISTORY: Fall injury;Pain COMPARISON: Chest Single View dated 01/17/2019 FINDINGS: Mildly displaced right lateral rib fractures are seen affecting ribs 5, 6, 7. Small right pleural effusion is likely present. A pneumothorax is not visualized. IMPRESSION: Mildly displaced right lateral fifth, sixth and seventh rib fractures.
--- NOTE | 2019-01-17 14:04 | ER ---
Nurse's Notes [facility] Name: Indira Chavis Age: 64 yrs Sex: Female : 1955 Arrival Date: 01/17/2019 Time: 11:52 Bed 11 Private MD: Uriel Zepeda Diagnosis: Multiple fractures of ribs, right side Presentation: 01/17 12:10 Presenting complaint: Patient states: "I tripped on the edge of the sidewalk on Tuesday aa5 and fell". Pt c/o pain to right lateral aspect of chest. Denies LOC, denies head injury. 12:10 Transition of care: patient was not received from another setting of care. Onset of aa5 symptoms was January 14, 2019. Risk Assessment: Do you want to hurt yourself or someone else? Patient reports no desire to harm self or others. Initial Sepsis Screen: Does the patient meet any 2 criteria? No. Patient's initial sepsis screen is negative. Does the patient have a suspected source of infection? No. Patient's initial sepsis screen is negative. Care prior to arrival: None. 12:10 Method Of Arrival: Wheelchair aa5 12:10 Acuity: KERMIT 4 aa5 Triage Assessment: 14:00 General: Appears in no apparent distress. Behavior is calm. iw Historical: - Allergies: 12:10 No Known Allergies; aa5 - PMHx: 12:10 BLINDNESS; CAD; CHF; Diabetes - IDDM; High Cholesterol; Hypertension; Hypothyroidism; aa5 - Immunization history:: Adult Immunizations up to date. - Social history:: Smoking status: Patient/guardian denies using tobacco. - Ebola Screening: : No symptoms or risks identified at this time. Screenin:00 Abuse screen: Denies threats or abuse. Denies injuries from another. Nutritional iw screening: No deficits noted. Tuberculosis screening: No symptoms or risk factors identified. Fall Risk Fall in past 12 months (25 points). Assessment: 13:00 General: Appears uncomfortable, Behavior is calm, cooperative. Pain: Complains of pain iw in right lateral posterior chest and right lateral anterior chest. Neuro: Level of Consciousness is awake, alert, obeys commands, Oriented to person, place, time, Moves all extremities. Cardiovascular: Patient's skin is warm and dry. Respiratory: Respiratory effort is even, unlabored, Respiratory pattern is regular. Derm: Skin is intact, is healthy with good turgor. Musculoskeletal: Range of motion: intact in all extremities. Vital Signs: 12:12 BP 126 / 63; Pulse 59; Resp 16 S; Temp 98.0(TE); Pulse Ox 95% on R/A; Weight 105.23 kg aa5 (R); Height 5 ft. 2 in. (157.48 cm) (R); Pain 8/10; 12:12 Body Mass Index 42.43 (105.23 kg, 157.48 cm) aa5 ED Course: 11:52 Patient arrived in ED. mr 11:52 Uriel Zepeda MD is Private Physician. mr 12:10 Arm band placed on. aa5 12:15 Triage completed. aa5 12:29 Roberto Adkins NP is PHCP. pm1 12:29 Anthony Thakur MD is Attending Physician. pm1 12:42 Dana Anthony, KELY is Primary Nurse. iw 13:00 Patient has correct armband on for positive identification. iw 13:26 Ribs Right XRAY In Process Unspecified. EDMS 13:26 Shoulder Right (2 View) XRAY In Process Unspecified. EDMS 13:26 Chest Single View XRAY In Process Unspecified. EDMS 14:29 No provider procedures requiring assistance completed. Patient did not have IV access iw during this emergency room visit. 18:47 INCENTIVE SPIROMETRY Sent. iw Administered Medications: 12:47 Drug: [place] 5 mg-325 mg 1 tabs Route: PO; iw 13:30 Follow up: Response: No adverse reaction; Pain is unchanged, physician notified iw 14:09 Drug: [place] 5 mg-325 mg 1 tabs Route: PO; iw 14:20 Follow up: Response: No adverse reaction; Pain is decreased iw 14:09 Drug: Ibuprofen 600 mg Route: PO; iw 14:20 Follow up: Response: No adverse reaction iw Outcome: 14:03 Discharge ordered by MD. pm1 14:29 Discharged to home via wheelchair, with family. iw 14:29 Condition: good 14:29 Discharge instructions given to patient, family, Instructed on discharge instructions, follow up and referral plans. medication usage, Incentive spirometer use Demonstrated understanding of instructions, follow-up care, medications, Prescriptions given X 1. 14:30 Patient left the ED. iw Signatures: Dispatcher [employer] Juliette Linda Irene, KELY RN iw Freda Holcomb, KELY RN aa5 Roberto Adkins, RICHARD CLINICAL OPERATIONS MANAGER pm1
--- NOTE | 2019-01-17 14:04 | EDPHYS ---
Physician Documentation [facility] Name: Indira Chavis Age: 64 yrs Sex: Female : 1955 Arrival Date: 01/17/2019 Time: 11:52 Bed 11 Private MD: Uriel Zepeda ED Physician Anthony Thakur HPI: 01/17 13:25 This 64 yrs old Female presents to ER via Wheelchair with complaints of Fall pm1 Injury. 13:25 Details of fall: The patient fell from an upright position, while standing. Onset: The pm1 symptoms/episode began/occurred yesterday. Associated injuries: The patient sustained right lateral anterior chest, anterior aspect of right shoulder, pain. Severity of symptoms: in the emergency department the symptoms are unchanged. The patient has not experienced similar symptoms in the past. The patient has not recently seen a physician. Patient fell on the concrete and landed on right side. Pain to right shoulder and right lateral ribs. No headache, head injury, neck pain, LOC, vomiting, shortness of breath. Historical: - Allergies: 12:10 No Known Allergies; aa5 - PMHx: 12:10 BLINDNESS; CAD; CHF; Diabetes - IDDM; High Cholesterol; Hypertension; Hypothyroidism; aa5 - Immunization history:: Adult Immunizations up to date. - Social history:: Smoking status: Patient/guardian denies using tobacco. - Ebola Screening: : No symptoms or risks identified at this time. ROS: 13:25 Constitutional: Negative for fever, chills, and weight loss, Eyes: Negative for injury, pm1 pain, redness, and discharge, ENT: Negative for injury, pain, and discharge, Neck: Negative for injury, pain, and swelling, Cardiovascular: Negative for chest pain, palpitations, and edema, Respiratory: Negative for shortness of breath, cough, wheezing, and pleuritic chest pain, Abdomen/GI: Negative for abdominal pain, nausea, vomiting, diarrhea, and constipation, Back: Negative for injury and pain, : Negative for injury, bleeding, discharge, and swelling, Skin: Negative for injury, rash, and discoloration. 13:25 Neuro: Negative for headache, weakness, numbness, tingling, and seizure. 13:25 MS/extremity: Positive for pain, of the anterior aspect of right shoulder, Negative for decreased range of motion, deformity. Exam: 13:25 Constitutional: This is a well developed, well nourished patient who is awake, alert, pm1 and in no acute distress. Head/Face: Normocephalic, atraumatic. Eyes: Pupils equal round and reactive to light, extra-ocular motions intact. Lids and lashes normal. Conjunctiva and sclera are non-icteric and not injected. Cornea within normal limits. Periorbital areas with no swelling, redness, or edema. ENT: Nares patent. No nasal discharge, no septal abnormalities noted. Tympanic membranes are normal and external auditory canals are clear. Oropharynx with no redness, swelling, or masses, exudates, or evidence of obstruction, uvula midline. Mucous membranes moist. Neck: Trachea midline, no thyromegaly or masses palpated, and no cervical lymphadenopathy. Supple, full range of motion without nuchal rigidity, or vertebral point tenderness. No Meningismus. Cardiovascular: Regular rate and rhythm with a normal S1 and S2. No gallops, murmurs, or rubs. Normal PMI, no JVD. No pulse deficits. Respiratory: Lungs have equal breath sounds bilaterally, clear to auscultation and percussion. No rales, rhonchi or wheezes noted. No increased work of breathing, no retractions or nasal flaring. Abdomen/GI: Soft, non-tender, with normal bowel sounds. No distension or tympany. No guarding or rebound. No evidence of tenderness throughout. Back: No spinal tenderness. No costovertebral tenderness. Full range of motion. Skin: Warm, dry with normal turgor. Normal color with no rashes, no lesions, and no evidence of cellulitis. 13:25 Chest/axilla: Inspection: normal, Palpation: crepitus, is not appreciated, tenderness, of the right lateral anterior chest, that totally reproduces the patient's complaints. 13:25 Musculoskeletal/extremity: Extremities: grossly normal except: noted in the anterior aspect of right shoulder: tenderness, There is no evidence of decreased ROM, deformity. 13:25 Neuro: Orientation: is normal, Motor: is normal, moves all fours. Vital Signs: 12:12 BP 126 / 63; Pulse 59; Resp 16 S; Temp 98.0(TE); Pulse Ox 95% on R/A; Weight 105.23 kg aa5 (R); Height 5 ft. 2 in. (157.48 cm) (R); Pain 8/10; 12:12 Body Mass Index 42.43 (105.23 kg, 157.48 cm) aa5 MDM: 12:29 Patient medically screened. pm1 13:52 Data reviewed: vital signs. Data interpreted: Pulse oximetry: on room air is 95 %. pm1 Interpretation: normal. 13:56 Counseling: I had a detailed discussion with the patient and/or guardian regarding: the pm1 historical points, exam findings, and any diagnostic results supporting the discharge/admit diagnosis, radiology results, the need for outpatient follow up, to return to the emergency department if symptoms worsen or persist or if there are any questions or concerns that arise at home. 01/17 12:32 Order name: Ribs Right XRAY; Complete Time: 13:45 pm1 01/17 12:32 Order name: Shoulder Right (2 View) XRAY; Complete Time: 13:45 pm1 01/17 12:32 Order name: Chest Single View XRAY; Complete Time: 13:45 pm1 01/17 13:52 Order name: INCENTIVE SPIROMETRY pm1 Administered Medications: 12:47 Drug: [place] 5 mg-325 mg 1 tabs Route: PO; iw 13:30 Follow up: Response: No adverse reaction; Pain is unchanged, physician notified iw 14:09 Drug: [place] 5 mg-325 mg 1 tabs Route: PO; iw 14:20 Follow up: Response: No adverse reaction; Pain is decreased iw 14:09 Drug: Ibuprofen 600 mg Route: PO; iw 14:20 Follow up: Response: No adverse reaction iw Disposition: 15:41 Co-signature as Attending Physician, Anthony Thakur MD I agree with the assessment and lita plan of care. Disposition: 01/17/19 14:03 Discharged to Home. Impression: Multiple fractures of ribs, right side. - Condition is Stable. - Discharge Instructions: Rib Fracture, Incentive Spirometer. - Prescriptions for Tylenol- Codeine #3 300-30 mg Oral Tablet - take 2 tablet by ORAL route every 6 hours As needed; 30 tablet. - Medication Reconciliation Form, Thank You Letter, Antibiotic Education, Prescription Opioid Use form. - Follow up: Emergency Department; When: As needed; Reason: Worsening of condition. Follow up: Private Physician; When: 2 - 3 days; Reason: Recheck today's complaints, Continuance of care, Re-evaluation by your physician. - Problem is new. - Symptoms have improved. Signatures: Dispatcher [employer] EDMS Anthony Thakur MD MD cha Williams, Irene, RN RN iw Freda Holcomb RN RN aa5 Roberto Adkins, ENGINE REPAIRER PRODUCTION ENGINE REPAIRER PRODUCTION pm1 Corrections: (The following items were deleted from the chart) 14:30 14:03 01/17/2019 14:03 Discharged to Home. Impression: Multiple fractures of ribs, iw right side. Condition is Stable. Forms are Medication Reconciliation Form, Thank You Letter, Antibiotic Education, Prescription Opioid Use. Follow up: Emergency Department; When: As needed; Reason: Worsening of condition. Follow up: Private Physician; When: 2 - 3 days; Reason: Recheck today's complaints, Continuance of care, Re-evaluation by your physician. Problem is new. Symptoms have improved. pm1
[2019-01-17] MEDS ORDERED: IBUPROFEN 200 MG TAB PO ONE (14:18)
== END 2019-01-17 14:30 | disposition home or self-care (01) ==
LOC: ER 11:48
DX: S22.41XA Multiple fractures of ribs, right side, initial encounter for closed fracture (principal); W18.30XA Fall on same level, unspecified, initial encounter; E11.9 Type 2 diabetes mellitus without complications; I25.10 Atherosclerotic heart disease of native coronary artery without angina pectoris; I11.0 Hypertensive heart disease with heart failure; I50.9 Heart failure, unspecified; E78.00 Pure hypercholesterolemia, unspecified; E03.9 Hypothyroidism, unspecified
CPT/HCPCS: 71045; 99283

== ENCOUNTER 2019-05-03 10:18 | Emergency (ER) | payer OTHER ==
--- OUTSIDE RECORDS SUMMARY | 2019-05-03 10:20 | XMS REPORT ---
:1955 Author Organization [employer] Care Team Providers Name Role Phone Duane, Uriel Provider Role Unavailable Allergies No Known Allergies Problems Problem Type Condition Code Onset Dates Condition Status Problem Depression with anxiety F41.8 Active Problem Insomnia due to medical condition G47.01 Active Problem Essential (primary) hypertension I10 Active Problem Unspecified visual loss H54.7 Active Problem Diabetic autonomic neuropathy E11.43 Active associated with type 2 diabetes mellitus Problem Type 2 diabetes mellitus with other E11.39 Active diabetic ophthalmic complication Problem Hypothyroidism, unspecified type E03.9 Active Problem Type 2 diabetes mellitus without E11.9 Active complications Problem Congestive heart failure, I50.9 Active unspecified HF chronicity, unspecified heart failure type Problem Hyperlipidemia, unspecified E78.5 Active hyperlipidemia type Assessment Congestive heart failure, I50.9 Active unspecified HF chronicity, unspecified heart failure type Problem longterm current use of insulin Z79.4 Active Assessment Essential (primary) hypertension I10 Active Problem Obstructive sleep apnea G47.33 Active Medications Medication Code Code Instructions Start End Status Dosage System Date Date Lisinopril [facility] 69622257858 40 MG Orally Active 1 tablet Once a day Furosemide [facility] 86737472731 20 MG Oral Once Active 1 tablet a day Metformin HCl [facility] 04572931773 850 MG Orally Active 1 tablet twice a day with a meal Citalopram [facility] 16161693164 40 MG Orally Active 1 tablet Hydrobromide Once a day Metoprolol [facility] 68353421467 100 MG Orally Active 1 tablet Succinate ER Once a day Results No Known Results Summary Purpose [employer] Submission
[2019-05-03] MEDS ORDERED: LEVALBUTEROL 1.25 MG/3 ML NEB ONE (11:42)
--- NOTE | 2019-05-03 12:07 | RAD REPORT ---
EXAM DESCRIPTION: RAD - Chest Single View - 05/03/2019 11:59 am CLINICAL HISTORY: SOB Chest pain. COMPARISON: Chest Single View dated 01/17/2019; Chest Single View dated 07/09/2018; Chest Pa And Lat (2 Views) dated 06/29/2018; Chest Single View dated 05/30/2018 FINDINGS: Portable technique limits examination quality. Mild interstitial pulmonary edema noted. The heart is enlarged in size. Sternotomy wires present.Heal ing right lateral rib fractures are present. IMPRESSION: Mild CHF.
[2019-05-03 12:21] LABS: Absolute Lymphocytes (CBC) 1.9 K/uL (0.7-4.9); Hematocrit 41.2 % (36.0-45.0); Lymphocytes % 19.5 % (15.3-44.8); MPV 9.9 fL (7.6-11.3); RBC Red Blood Cell Count 4.68 M/uL (3.86-4.86)
[2019-05-03 12:32] LABS: Protime INR 1.03
[2019-05-03 12:36] LABS: Urine Blood NEGATIVE (NEG); Urine Glucose 2+ (NEG); Urine Protein NEGATIVE (NEG); Urine Specific Gravity <1.005 (1.005-1.030)
[2019-05-03 12:44] LABS: Urine Bacteria >50 /HPF (<20); Urine Culture Reflex Order REFLEXED; Urine RBC NONE SEEN /HPF (NONE SEEN)
--- NOTE | 2019-05-03 12:45 | RAD REPORT ---
EXAM DESCRIPTION: US - Extremity Venous Uni Ltd - 05/03/2019 12:38 pm CLINICAL HISTORY: PAIN Leg swelling and edema. COMPARISON: No comparisons FINDINGS: Left lower extremity venous system was interrogated with Doppler technique. Normal flow, c ompressibility and augmentation was noted. There is no DVT present. IMPRESSION: No evidence of left lower extremity deep venous thrombosis.
[2019-05-03 12:52] LABS: ALT/SGPT 13 U/L (12-78); AST/SGOT 11 U/L (15-37); Albumin 3.9 g/dL (3.4-5.0); Alkaline Phosphatase 70 U/L (45-117); BUN Blood Urea Nitrogen 18 mg/dL (7-18); Bicarbonate 24 mmol/L (21-32); Bilirubin Direct 0.2 mg/dL (0-0.2); Bilirubin Total 0.7 mg/dL (0.2-1.0); Glucose Level 193 mg/dL (74-106); NT PRO-BNP 1433 pg/mL (<125); Potassium 4.1 mmol/L (3.5-5.1); Protein, Total 7.9 g/dL (6.4-8.2); Sodium Level 138 mmol/L (136-145); Troponin (Emerg Dept Use Only) < 0.02 ng/mL (0.0-0.045)
[2019-05-03 12:55] LABS: Magnesium 1.1 mg/dL (1.8-2.4)
[2019-05-03] MEDS ORDERED: Magnesium Sulfate 2gm IVPB 2 G/50 ML BAG IV ONE (13:26)
--- NOTE | 2019-05-03 13:36 | RAD REPORT ---
EXAM DESCRIPTION: CT - Head Brain Wo Cont - 05/03/2019 1:30 pm CLINICAL HISTORY: HEADACHE Headache, drowsiness COMPARISON: No comparisons TECHNIQUE: All CT scans are performed using dose optimization technique as appropriate and may inclu de automated exposure control or mA/KV adjustment according to patient size. FINDINGS: No intracranial hemorrhage, hydrocephalus or extra-axial fluid collection.Mild brain atrop hy is noted.No areas of brain edema or evidence of midline shift. The paranasal sinuses and mastoids are clear. The calvarium is intact. IMPRESSION: No acute intracranial abnormality.
--- NOTE | 2019-05-03 13:38 | RAD REPORT ---
EXAM DESCRIPTION: CTAbdomen Pelvis W Contrast - 05/03/2019 1:30 pm CLINICAL HISTORY: Abdominal pain. ABD PAIN COMPARISON: Abdomen Pelvis W Contrast dated 08/02/2018; Abdomen Pelvis W Contrast dated 8 TECHNIQUE: Biphasic CT imaging of the abdomen and pelvis was performed with 100 ml non-ionic IV cont rast. All CT scans are performed using dose optimization technique as appropriate and may include automated exposure control or mA/KV adjustment according to patient size. FINDINGS: The lung bases are clear. The liver, spleen, pancreas, adrenal glands and kidneys are within normal limits. No bowel obstruction, free air, free fluid or abscess. The appendix is normal. No evidence of signi ficant lymphadenopathy. Mild lumbar degenerative changes. Moderate atherosclerosis. IMPRESSION: No acute intra-abdominal or pelvic finding.
[2019-05-03] MEDS ORDERED: FENTANYL CITR 100 MCG/2 ML ONE (14:07)
--- NOTE | 2019-05-03 14:36 | ER ---
Nurse's Notes [facility] Name: Indira Chavis Age: 64 yrs Sex: Female : 1955 Arrival Date: 05/03/2019 Time: 10:20 Bed 24 Private MD: Uriel Zepeda Diagnosis: Headache;Pain in left leg;Urinary tract infection, site not specified Presentation: 05/03 10:30 Presenting complaint: Patient states: headache, lower abd pain, left leg pain, iw shaky/wobbly, is blind but is "seeing thing that aren't there", denies vomiting/diarrhea, denies pain with urination, symptoms X 2 weeks. Transition of care: patient was not received from another setting of care. Onset of symptoms was April 22, 2019. Risk Assessment: Do you want to hurt yourself or someone else? Patient reports no desire to harm self or others. Initial Sepsis Screen: Does the patient meet any 2 criteria? No. Patient's initial sepsis screen is negative. Does the patient have a suspected source of infection? No. Patient's initial sepsis screen is negative. Care prior to arrival: None. 10:30 Method Of Arrival: Wheelchair iw 10:30 Acuity: KERMIT 3 iw Triage Assessment: 13:00 GI: Reports lower abdominal pain. mg2 Historical: - Allergies: 10:34 No Known Allergies; iw - Home Meds: 10:34 atorvastatin oral oral [Active]; Lisinopril Oral [Active]; Metformin Oral [Active]; iw Furosemide Oral [Active]; Metoprolol Tartrate Oral [Active]; Levemir 100 unit/mL subcutaneous soln daily [Active]; - PMHx: 10:34 BLINDNESS; CAD; CHF; Diabetes - IDDM; High Cholesterol; Hypertension; Hypothyroidism; iw - PSHx: 10:34 Tubal ligation; CABG; cataract; eye; iw - Immunization history:: Adult Immunizations up to date. - Social history:: Smoking status: Patient/guardian denies using tobacco. - Ebola Screening: : Patient negative for fever greater than or equal to 101.5 degrees Fahrenheit, and additional compatible Ebola Virus Disease symptoms Patient denies exposure to infectious person Patient denies travel to an Ebola-affected area in the 21 days before illness onset No symptoms or risks identified at this time. Screenin:45 Abuse screen: Denies threats or abuse. Denies injuries from another. Nutritional mg2 screening: No deficits noted. Tuberculosis screening: No symptoms or risk factors identified. Fall Risk IV access (20 points). Assessment: 11:31 Reassessment: assisted patient to restroom via wheelchair. Urine specimen obtained. ss 13:18 General: Appears in no apparent distress. comfortable, Behavior is calm, cooperative. mg2 Pain: Complains of pain in both legs Pain does not radiate. Pain currently is 5 out of 10 on a pain scale. Neuro: Level of Consciousness is awake, alert, obeys commands, Oriented to person, place, time, situation. Cardiovascular: Capillary refill < 3 seconds Patient's skin is warm and dry. Respiratory: Airway is patent Respiratory effort is even, unlabored, Respiratory pattern is Breath sounds are clear bilaterally. in mediastinum, right upper lobe and left upper lobe. GI: Abdomen is round non-distended. : No signs and/or symptoms were reported regarding the genitourinary system. EENT: Eyes patient is blind. Derm: Skin is intact, is healthy with good turgor, Skin is pink, warm \\T\\ dry. normal. Musculoskeletal: Circulation, motion, and sensation intact. Capillary refill < 3 seconds, Reports pain in right leg and left leg. 13:25 Reassessment: patient taken to ct scan via stretcher. mg2 14:51 Reassessment: Patient denies pain at this time. Patient states feeling better. Patient mg2 states symptoms have improved. Vital Signs: 10:34 BP 167 / 60; Pulse 55; Resp 18 S; Temp 98.3(TE); Pulse Ox 97% on R/A; Weight 92.99 kg; iw Height 5 ft. 2 in. (157.48 cm); Pain 9/10; 13:18 BP 164 / 77; Pulse 59; Resp 20; Pulse Ox 98% on 2 lpm NC; mg2 14:04 BP 107 / 89; Pulse 63; Resp 18; Pulse Ox 100% on 2 lpm NC; mg2 14:50 BP 129 / 90; Pulse 65; Resp 18; Temp 98; Pulse Ox 98% on R/A; Pain 0/10; mg2 10:34 Body Mass Index 37.49 (92.99 kg, 157.48 cm) iw ED Course: 10:20 Patient arrived in ED. as 10:20 Uriel Zepeda MD is Private Physician. as 10:32 Triage completed. iw 10:34 Arm band placed on. iw 11:01 Anthony Reeves PA is PHCP. cp 11:01 Marion Livingston MD is Attending Physician. cp 11:40 Ankush Stauffer, KELY is Primary Nurse. mg2 11:59 XRAY Chest (1 view) In Process Unspecified. EDMS 12:38 US Extremity Venous Unilateral Ltd In Process Unspecified. EDMS 13:00 Patient has correct armband on for positive identification. mg2 13:23 No provider procedures requiring assistance completed. Inserted saline lock: 22 gauge mg2 in right hand, using aseptic technique. Blood collected. 13:24 CT completed. Patient tolerated procedure well. Patient moved to CT via stretcher. [id number] Patient moved back from CT. 13:31 CT Head Brain wo Cont In Process Unspecified. EDMS 13:31 CT Abd/Pelvis - IV Contrast Only In Process Unspecified. EDMS 14:51 IV discontinued, intact, bleeding controlled, No redness/swelling at site. Pressure mg2 dressing applied. Administered Medications: 11:59 Drug: Xopenex (3) 1.25 mg Route: Inhalation; mg2 14:03 Follow up: Response: No adverse reaction; Marked relief of symptoms mg2 14:03 Drug: Magnesium Sulfate 2 grams Route: IVPB; Infused Over: 1 hrs; Site: right hand; mg2 14:50 Follow up: Response: No adverse reaction; IV Status: Completed infusion mg2 14:12 Drug: fentaNYL (PF) 25 mcg Route: IVP; Site: right hand; mg2 14:50 Follow up: Response: No adverse reaction; Marked relief of symptoms mg2 14:22 Drug: Rocephin - (cefTRIAXone) 1 grams Route: IVPB; Infused Over: 30 mins; Site: right mg2 hand; 14:50 Follow up: Response: No adverse reaction; IV Status: Completed infusion mg2 Outcome: 14:35 Discharge ordered by MD. cp 14:51 Discharged to home via wheelchair, with family. mg2 14:51 Condition: stable 14:51 Discharge instructions given to patient, family, Instructed on discharge instructions, follow up and referral plans. medication usage, Demonstrated understanding of instructions, follow-up care, medications, Prescriptions given X 2. 14:53 Patient left the ED. mg2 Addendum: 05/07/2019 07:48 Addendum: Culture Results: Positive urine culture. No further action required. Bacteria m s sensitive to prescribed antibiotic. Signatures: Dispatcher [employer] Judie Castro Irene, RN RN iw Rizwana Pelletier ms, Shelby, RN RN ss Anthony Reeves PA PA cp [place], Michele, RN RN mg2 Maeve [id number] Corrections: (The following items were deleted from the chart) 05/03 14:10 14:04 BP 107 / 89; Pulse 63bpm; Resp 18bpm; Pulse Ox 100% RA; mg2 mg2
--- NOTE | 2019-05-03 14:37 | EDPHYS ---
Physician Documentation [facility] Name: Indira Chavis Age: 64 yrs Sex: Female : 1955 Arrival Date: 05/03/2019 Time: 10:20 Bed 24 Private MD: Uriel Zepeda ED Physician Marion Livingston HPI: 05/03 11:30 This 64 yrs old Female presents to ER via Wheelchair with complaints of cp Nausea, Headache, Leg Pain. 11:30 The patient has shortness of breath with light activity. Onset: The symptoms/episode cp began/occurred gradually. Duration: The symptoms are continuous. 11:30 Associated signs and symptoms: Pertinent positives: visual changes, lower abdomen pain, cp left leg pain, headache, Pertinent negatives: chest pain, productive cough, dizziness, fever, numbness in extremities, vomiting. Severity of symptoms: in the emergency department the symptoms are unchanged despite home interventions. Historical: - Allergies: 10:34 No Known Allergies; iw - Home Meds: 10:34 atorvastatin oral oral [Active]; Lisinopril Oral [Active]; Metformin Oral [Active]; iw Furosemide Oral [Active]; Metoprolol Tartrate Oral [Active]; Levemir 100 unit/mL subcutaneous soln daily [Active]; - PMHx: 10:34 BLINDNESS; CAD; CHF; Diabetes - IDDM; High Cholesterol; Hypertension; Hypothyroidism; iw - PSHx: 10:34 Tubal ligation; CABG; cataract; eye; iw - Immunization history:: Adult Immunizations up to date. - Social history:: Smoking status: Patient/guardian denies using tobacco. - Ebola Screening: : Patient negative for fever greater than or equal to 101.5 degrees Fahrenheit, and additional compatible Ebola Virus Disease symptoms Patient denies exposure to infectious person Patient denies travel to an Ebola-affected area in the 21 days before illness onset No symptoms or risks identified at this time. ROS: 11:40 Constitutional: Negative for body aches, chills, fever, poor PO intake. cp 11:40 Eyes: Positive for visual disturbance, Negative for discharge, pain. cp 11:40 ENT: Negative for drainage from ear(s), ear pain, sore throat, difficulty swallowing, difficulty handling secretions. 11:40 Cardiovascular: Negative for chest pain, edema, palpitations. 11:40 Respiratory: Positive for shortness of breath, on exertion. Negative for cough, wheezing. 11:40 Abdomen/GI: Positive for abdominal pain, Negative for vomiting, diarrhea, constipation, anorexia, black/tarry stool, rectal bleeding. 11:40 Back: Positive for pain at rest. 11:40 : Negative for urinary symptoms. 11:40 MS/extremity: Positive for pain, of the left leg, Negative for injury or acute deformity, decreased range of motion. 11:40 Skin: Negative for cellulitis, rash. 11:40 Neuro: Positive for headache, Negative for altered mental status, syncope, weakness. 11:40 All other systems are negative. Exam: 11:45 Constitutional: The patient appears in no acute distress, alert, awake, cp non-diaphoretic, non-toxic, well developed, well nourished. 11:45 Head/Face: Normocephalic, atraumatic. cp 11:45 Eyes: Periorbital structures: appear normal, Conjunctiva: normal, no exudate, no injection, Sclera: no appreciated abnormality, Lids and lashes: appear normal, bilaterally. 11:45 ENT: External ear(s): are unremarkable, Ear canal(s): are normal, clear, TM's: are normal, no evidence of bulging, no erythema, Nose: is normal, Mouth: Lips: dry, Oral mucosa: pink and intact, moist, Posterior pharynx: is normal, airway is patent, no erythema, no exudate. 11:45 Neck: ROM/movement: is normal, is supple, without pain, no range of motions limitations, no meningismus, no nuchal rigidity. 11:45 Chest/axilla: Inspection: normal, Palpation: is normal, no crepitus, no tenderness. 11:45 Cardiovascular: Rate: normal, Rhythm: regular, Edema: is not appreciated, JVD: is not appreciated. 11:45 Respiratory: the patient does not display signs of respiratory distress, Respirations: normal, no use of accessory muscles, no retractions, no splinting, no tachypnea. 11:45 Abdomen/GI: Inspection: abdomen appears normal, Bowel sounds: active, all quadrants, Palpation: abdomen is soft and non-tender, in all quadrants, rebound tenderness, is not appreciated, involuntary guarding, is not appreciated. 11:45 Back: CVA tenderness, is absent. 11:45 Skin: cellulitis, is not appreciated, no rash present. 11:45 Neuro: Orientation: to person, place \T\ time. Mentation: is normal, Motor: moves all fours, strength is normal, Sensation: no obvious gross deficits, Gait: needs assistance. 13:05 ECG was reviewed by the Attending Physician. cp Vital Signs: 10:34 BP 167 / 60; Pulse 55; Resp 18 S; Temp 98.3(TE); Pulse Ox 97% on R/A; Weight 92.99 kg; iw Height 5 ft. 2 in. (157.48 cm); Pain 9/10; 13:18 BP 164 / 77; Pulse 59; Resp 20; Pulse Ox 98% on 2 lpm NC; mg2 14:04 BP 107 / 89; Pulse 63; Resp 18; Pulse Ox 100% on 2 lpm NC; mg2 14:50 BP 129 / 90; Pulse 65; Resp 18; Temp 98; Pulse Ox 98% on R/A; Pain 0/10; mg2 10:34 Body Mass Index 37.49 (92.99 kg, 157.48 cm) iw MDM: 11:03 Patient medically screened. cp 12:00 Differential diagnosis: gastritis, dehydration, migraine, sciatica, DVT, UTI. cp 12:00 Differential diagnosis: Anemia CHF exacerbation, Chronic Obstructive Pulmonary Disease cp pneumonia, Unstable Angina. 14:34 Data reviewed: vital signs, nurses notes, lab test result(s), EKG, radiologic studies, cp CT scan, plain films. 14:34 Test interpretation: by ED physician or midlevel provider: ECG, plain radiologic cp studies. Counseling: I had a detailed discussion with the patient and/or guardian regarding: the historical points, exam findings, and any diagnostic results supporting the discharge/admit diagnosis, lab results, radiology results, to return to the emergency department if symptoms worsen or persist or if there are any questions or concerns that arise at home. Response to treatment: the patient's symptoms have markedly improved after treatment, and as a result, I will discharge patient. 05/03 11:25 Order name: Basic Metabolic Panel; Complete Time: 13:05 cp 05/03 13:05 Interpretation: Normal except: GLUC 193; GFR 59. cp 05/03 11:25 Order name: CBC with Diff; Complete Time: 12:45 cp 09/12 12:45 Interpretation: Normal except: MCV 87.9. cp 12 11:25 Order name: LFT's; Complete Time: 13:05 cp /12 11:25 Order name: Magnesium; Complete Time: 13:05 cp 05/03 11:25 Order name: NT PRO-BNP; Complete Time: 13:05 cp 05/03 11:25 Order name: PT-INR; Complete Time: 12:45 cp / 11:25 Order name: US Extremity Venous Unilateral Ltd; Complete Time: 12:53 cp 05/03 11:25 Order name: Troponin (emerg Dept Use Only); Complete Time: 13:05 cp 05/03 11:25 Order name: XRAY Chest (1 view); Complete Time: 12:45 cp 05/03 11:25 Order name: Urine Microscopic Only; Complete Time: 12:53 cp 12 12:53 Interpretation: Normal except: UBACT >50. cp 05/03 12:31 Order name: Urine Dipstick--Ancillary (enter results); Complete Time: 12:45 bd 05/03 12:46 Interpretation: Normal except: UGLUC 2+. cp 12 12:47 Order name: Urine Culture EDMS 05/03 13:07 Order name: CT Head Brain wo Cont; Complete Time: 13:59 cp 12 13:07 Order name: CT Abd/Pelvis - IV Contrast Only; Complete Time: 13:59 cp 12 11:25 Order name: EKG; Complete Time: 11:33 cp 12 11:25 Order name: Cardiac monitoring; Complete Time: 11:59 cp 12 11:25 Order name: EKG - Nurse/Tech; Complete Time: 13:25 cp 12 11:25 Order name: IV Saline Lock; Complete Time: 11:59 cp 12 11:25 Order name: Labs collected and sent; Complete Time: 11:59 cp 12 11:25 Order name: O2 Per Protocol; Complete Time: 11:59 cp 12 11:25 Order name: O2 Sat Monitoring; Complete Time: 11:59 cp 12 11:25 Order name: Urine Dipstick-Ancillary (obtain specimen); Complete Time: 11:58 cp EC:05 Rate is 62 beats/min. Rhythm is regular. MA interval is normal. QRS interval is normal. cp QT interval is normal. T waves are Inverted in leads I, II, aVL, aVF, V2, V3, V4, V5, V6. Interpreted by me. Reviewed by me. Administered Medications: 11:59 Drug: Xopenex (3) 1.25 mg Route: Inhalation; mg2 14:03 Follow up: Response: No adverse reaction; Marked relief of symptoms mg2 14:03 Drug: Magnesium Sulfate 2 grams Route: IVPB; Infused Over: 1 hrs; Site: right hand; mg2 14:50 Follow up: Response: No adverse reaction; IV Status: Completed infusion mg2 14:12 Drug: fentaNYL (PF) 25 mcg Route: IVP; Site: right hand; mg2 14:50 Follow up: Response: No adverse reaction; Marked relief of symptoms mg2 14:22 Drug: Rocephin - (cefTRIAXone) 1 grams Route: IVPB; Infused Over: 30 mins; Site: right mg2 hand; 14:50 Follow up: Response: No adverse reaction; IV Status: Completed infusion mg2 Disposition: 15:00 Chart complete. cp Disposition: 05/03/19 14:35 Discharged to Home. Impression: Headache, Pain in left leg, Urinary tract infection, site not specified. - Condition is Stable. - Discharge Instructions: Musculoskeletal Pain, Urinary Tract Infection, Adult. - Prescriptions for Augmentin 875- 125 mg Oral Tablet - take 1 tablet by ORAL route every 12 hours for 7 days; 14 tablet. Mobic 7.5 mg Oral Tablet - take 1 tablet by ORAL route once daily take with food; 20 tablet. - Medication Reconciliation Form, Thank You Letter, Antibiotic Education, Prescription Opioid Use form. - Follow up: Private Physician; When: 2 - 3 days; Reason: Recheck today's complaints. - Problem is new. - Symptoms have improved. Addendum: 05/07/2019 15:56 Co-signature as Attending Physician, Marion Livingston MD. m a2 Signatures: Dispatcher [employer] Dana Diane RN RN iw Page, Corey, PA PA Marion Steve MD MD ma2 Ankush Stauffer RN RN mg2 Corrections: (The following items were deleted from the chart) 05/03 14:53 14:35 05/03/2019 14:35 Discharged to Home. Impression: Headache; Pain in left leg; mg2 Urinary tract infection, site not specified. Condition is Stable. Forms are Medication Reconciliation Form, Thank You Letter, Antibiotic Education, Prescription Opioid Use. Follow up: Private Physician; When: 2 - 3 days; Reason: Recheck today's complaints. Problem is new. Symptoms have improved. cp
[2019-05-03 15:03] VITALS: BP 129/90; TEMP 98; O2SAT 98
--- NOTE | 2019-05-04 07:41 | EKG ---
Test Date: 2019-05-03 Test Time: 12:56:06 Drafter Electronic: TAM MEASUREMENT RESULTS: Intervals: Rate: 62 WI: 130 QRSD: 80 QT: 482 QTc: 489 [place]: P: 50 WI: 130 QRS: -28 T: 224 INTERPRETIVE STATEMENTS: Normal sinus rhythm Minimal voltage criteria for LVH, may be normal variant ST & T wave abnormality, consider inferior ischemia ST & T wave abnormality, consider anterolateral ischemia Prolonged QT Abnormal ECG Compared to ECG 07/09/2018 14:33:05 ST (T wave) deviation now present Prolonged QT interval now present Sinus bradycardia no longer present T-wave abnormality no longer present Possible ischemia still present Electronically Signed On 05-04-19 07:38:24 CDT by Yomi Cdi
== END 2019-05-03 14:53 | disposition home or self-care (01) ==
LOC: ER 10:18
DX: N39.0 Urinary tract infection, site not specified (principal); R51 Headache; M79.605 Pain in left leg; I10 Essential (primary) hypertension; E11.9 Type 2 diabetes mellitus without complications; E78.00 Pure hypercholesterolemia, unspecified; Z95.1 Presence of aortocoronary bypass graft
CPT/HCPCS: 96365; 96368; 93005; 87088; 85025; 87086; 80048; 36415; 83735; 85610; 80076; 87077 ×2; 87186 ×2; 84484; 83880; 70450; 74177; 71045; 93971; 96375; 99285; Q9967; J3010; J3475; 81003; 81015

== ENCOUNTER → 2020-04-25 | Emergency (ER) | payer OTHER ==
[~2020-04-25] MED LIST: HYDRALAZINE HCL 20 MG/ML VIAL ONE; KETOROLAC 30 MG/ML INJ ONE; LORazepam 2 MG/ML VIAL ONE; ONDANSETRON 4 MG/2 ML VIAL ONE; lisinopriL 20 MG TAB ONE
--- OUTSIDE RECORDS SUMMARY | 2020-04-25 17:36 | XMS REPORT | Continuity of Care Document ---
:1955 Author Organization [facility] Address [address] [place] [address] Care Team Providers Name Role Phone Unavailable Unavailable Unavailable Problems Condition Condition Condition Status Onset Resolution Last Treating Co mments Source Name Details Category Date Date Treatment Clinician Date Unspecifie Unspecifie Problem Active [facility] visual d visual [facility] Hypothyroi Hypothyroi Problem Active [facility] dism, dism, [facility] - unspecifie unspecifie Me moria d type d type l [facility] Congestive Congestive Problem Active [facility] heart heart [facility] - failure, failure, Memori a unspecifie unspecifie l d HF d HF Outpati chronicity chronicity en t , , Clinics unspecifie unspecifie d heart d heart failure failure type type Depression Depression Problem Active [facility] with with [facility] - anxiety anxiety [facility] l Outpati ent Clinics Obstructiv Obstructiv Problem Active [facility] e sleep e sleep [facility] - apnea apnea [facility] l [facility] ent Clinics Essential Essential Problem Active [facility] (primary[facility] (primary[facility] - hypertensi hypertensi Me moria on on l [facility] Insomnia Insomnia Problem [facility] due to due to [facility] - medical medical Memoria condition condition l Outpati ent Clinics Hyperlipid Hyperlipid Problem Active [facility] emia, emia, [facility] - unspecifie unspecifie Me moria d d l hyperlipid hyperlipid Ou tpati emia type emia type ent Clinics 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 [facility]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 [facility] - use of use of Memoria insulin insulin l Outpati ent Clinics Type 2 Type [address] [facility] diabetes diabetes [facility] - mellitus mellitus Memori a without without l complicati complicati Ou tpati ons ons ent Clinics Type 2 Type [address] [facility] diabetes diabetes [facility] - mellitus mellitus Memori a with other with other l diabetic diabetic Outpat i ophthalmic ophthalmic en t complicati complicati Cl inics on on Diabetic Diabetic Problem Active [facility] autonomic autonomic [facility] - neuropathy neuropathy Me moria associated associated l with type with type Outp ati 2 diabetes 2 diabetes en t mellitus mellitus Clinic s [place] Problem Active [facility] frequently frequently Serena kes - Memoria l [facility] ent Clinics Psychophys Psychophys Problem Active [facility] iological iological [facility] - insomnia insomnia Memori a l [facility] ent Clinics Insomnia, Insomnia, Problem Active [facility] unspecifie unspecifie Serena kes - d type d type Memoria l [facility] ent Clinics Type 2 Type [address] [facility] diabetes diabetes [facility] - mellitus mellitus Memori a with with l hyperglyce hyperglyce Ou tpati [facility] ent Clinics Type 2 Type [address] [facility] diabetes diabetes [facility] - mellitus mellitus Memori a with with l diabetic diabetic Outpat i nephropath nephropath en t y y Clinics Diarrhea, Diarrhea, Problem Active [facility] unspecifie unspecifie Serena kes - d type d type Memoria l [facility] ent Clinics Abdominal Abdominal Problem Active [facility] pain, pain, [facility] - unspecifie unspecifie Me moria d d l abdominal abdominal Outp ati location location ent Clinics Constipati Constipati Problem Active [facility] on, on, [facility] - unspecifie unspecifie Me moria d d l constipati constipati Ou tpati on type on type ent Clinics Blindness Blindness Problem Active [facility] of both of both [facility] - eyes eyes Memoria l [facility] ent Clinics Tremor of Tremor of Problem Active [facility] both hands both hands Serena kes - Memoria l [facility] ent [facility] Allergies, Adverse Reactions, Alerts This patient has no known allergies or adverse reactions. Medications Ordered Filled Start Stop Current Ordering Indication Dosage Frequency Signature Comments Components Source Medication Medication Date Date Medication? Clinician (SIG) Name Name Furosemide Furosemide Yes Roseanne [address] [facility] Immunizations Ordered Filled Immunization Date Status Comments Sour e Immunization Name Name FLUZONE HIGH DOSE FLUZONE HIGH DOSE 2019-07-[address] [facility] - OVER [facility] OVER 65 00:00:00 [facility] Procedures This patient has no known procedures. Encounters Start End Encounter Admission Attending Care Care Encounter Source Date/Time Date/Time Type Type Clinicians Facility Department ID 2020-04-22 2020-04-22 [facility] [id number] [facility] 16:07[facility] 16[facility]07[facility] [place] [facility] - [address] [facility] Medicine Medicine Outpati ent Clinics 2020-03-10 2020-03-10 [facility] [id number] [facility] 14:12:00 14:12:00 t [facility] s - Road [facility] Medicine l Medicine Outpati ent Clinics 2020-02-18 2020-02-18 [facility] [id number] [address] 16:18:00 16:18:00 [facility] - Road [facility] Medicine l Medicine Outpati ent Clinics 2020-02-06 2020-02-06 [facility] [id number] 13:37:00 13:37:00 [facility] - Road [facility] l Medicine Outpati ent Clinics 2020-02-04 2020-02-04 [facility] [id number] 01:42:00 01:42:00 [facility] [address] [facility] Medicine Outpati ent Clinics 2020-01-31 2020-01-31 [facility] [id number] [address] 14:20:00 14:20:[facility] [address] [facility] Medicine l Medicine Outpati ent Clinics 2020-01-30 2020-01-30 [facility] [id number] 14:10:00 14:10:[address] [facility] [address] [facility] Medicine Medicine Outpati ent Clinics 2019-12-03 2019-12-03 [facility] [id number] [address] 16:36:00 16:36:[address] [facility] [address] [facility] Medicine l Medicine Outpati ent Clinics 2019-11-18 2019-11-18 [facility] [id number] [address] 13:03:00 13:03:[address] [facility] [address] [facility] Medicine l Medicine Outpati ent Clinics 2019-11-12 2019-11-12 [facility] [id number] [facility] 13:39:00 13:39:[facility] [address] [facility] l Medicine Outpati ent Clinics 2019-10-31 2019-10-31 [facility] [id number] 13:30:00 13:30:00 t [facility] Medicine l Medicine Outpati ent Clinics 2019-09-03 2019-09-03 [facility] [id number] [address] 16:31:00 16:31:[address] [facility] Medicine l Medicine Outpati ent Clinics 2019-07-31 2019-07-31 [facility] [id number] 16:41:00 16:41:00 t [facility] Medicine l Medicine Outpati ent Clinics 2019-07-28 2019-07-28 [facility] [id number] 02:30:00 02:30:00 t [facility] Medicine l Medicine Outpati ent Clinics 2019-07-27 2019-07-27 [facility] [id number] 16:20:00 16:20:00 t [facility] Medicine l Medicine Outpati ent Clinics 2019-07-04 2019-07-04 [facility] [id number] [address] 08:55:00 08:55:00 t [facility] Medicine Medicine Outpati ent Clinics 2019-06-11 2019-06-11 [facility] [id number] 09:00:00 09:00:00 t [facility] Medicine l Medicine Outpati ent Clinics 2019-06-07 2019-06-07 [facility] [id number] 11:00:00 11:00:00 t [facility] Medicine l Medicine Outpati ent Clinics 2019-06-05 2019-06-05 [facility] [id number] [facility] 08:30:00 08:30:[address] [facility] Medicine l Medicine Outpati ent Clinics 2019-05-10 2019-05-10 [facility] [id number] 08:30:00 08:30:00 t [facility] Medicine Outpati ent Clinics 2019-05-02 2019-05-02 [facility] [id number] 11:27:00 11:27:00 t [facility] Medicine Outpati ent Clinics 2019-04-17 2019-04-17 [facility] [id number] 16:14:00 16:14:00 t [facility] Medicine Outpati ent Clinics 2019-03-26 2019-03-26 [facility] [id number] 09:22:00 09:22:00 t [facility] Medicine Outpati ent Clinics 2019-03-09 2019-03-09 [facility] [id number] 09:45:00 09:45:00 t [facility] Medicine Outpati ent Clinics 2019-03-01 2019-03-01 [facility] [id number] 12:06:00 12:06:00 t [facility] Medicine Outpati ent Clinics 2019-02-20 2019-02-20 [facility] [id number] 14:01:00 14:01:00 [facility] Medicine Outpati ent Clinics 2019-02-08 2019-02-08 [facility] [id number] 13:15:00 13:15:00 t [facility] Medicine Outpati ent Clinics 2019-02-06 2019-02-06 [facility] [id number] 13:59:00 13:59:00 t [facility] Medicine Outpati ent Clinics 2018-12-27 2018-12-27 [facility] [id number] [facility] 13:30:00 13:30:00 [facility] Medicine Outpati ent Clinics Results This patient has no known results.
--- OUTSIDE RECORDS SUMMARY | 2020-04-25 17:36 | XMS REPORT ---
:1955 Author Organization [employer] Care Team Providers Name Role Phone Roseanne Dahl Provider Role Unavailable Allergies No Known Allergies Problems Problem Type Condition Code Onset Dates Condition Statu s Problem Diabetic autonomic neuropathy E11.43 Active associated with type 2 diabetes mellitus Problem Falls frequently R29.6 Active Problem Unspecified visual loss H54.7 Acti ve Problem Diarrhea, unspecified type R19.7 A ctive Problem Type 2 diabetes mellitus with E11.21 Active diabetic nephropathy Problem Constipation, unspecified K59.00 Ac tive constipation type Problem Abdominal pain, unspecified R10.9 Active abdominal location Problem Psychophysiological insomnia F51.04 Active Problem Type 2 diabetes mellitus with E11.65 Active hyperglycemia Problem Insomnia, unspecified type G47.00 A ctive Problem Hyperlipidemia, unspecified E78.5 Active hyperlipidemia type 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 Active Problem Congestive heart failure, I50.9 Ac tive unspecified HF chronicity, unspecified heart failure type Problem Hypothyroidism, unspecified type E03.9 Active Problem Essential (primary) hypertension I10 Active Problem Insomnia due to medical condition G47.01 Active Problem Obstructive sleep apnea G47.33 Acti ve Problem Type 2 diabetes mellitus without E11.9 Active complications Problem Depression with anxiety F41.8 Acti ve Problem Type 2 diabetes mellitus with other E11.39 Active diabetic ophthalmic complication Medications No Known Medications Results No Known Results Summary Purpose [employer] Submission
--- OUTSIDE RECORDS SUMMARY | 2020-04-25 17:36 | XMS REPORT ---
:1955 Author Organization eClinicalWorks Care Team Providers Name Role Phone Roseanne Dahl Provider Role Unavailable Allergies No Known Allergies Problems Problem Type Condition Code Onset Dates Condition Statu s Problem Psychophysiological insomnia F51.04 Active Problem Insomnia, unspecified type G47.00 A ctive Problem Abdominal pain, unspecified R10.9 Active abdominal location Problem Tremor of both hands R25.1 Active Problem Depression with anxiety F41.8 Acti ve Problem Blindness of both eyes H54.3 Activ e Problem Obstructive sleep apnea G47.33 Acti ve Problem long-term current use of insulin Z79.4 Active Problem Multiple falls R29.6 Active Problem Diarrhea, unspecified type R19.7 A ctive Problem Type 2 diabetes mellitus with E11.21 Active diabetic nephropathy Problem Constipation, unspecified K59.00 Ac tive constipation type Problem Type 2 diabetes mellitus with E11.65 Active hyperglycemia Problem Hyperlipidemia, unspecified E78.5 Active hyperlipidemia type Problem Insomnia due to medical condition G47.01 Active Problem Essential (primary) hypertension I10 Active Problem Hypothyroidism, unspecified type E03.9 Active Problem Unspecified visual loss H54.7 Acti ve Problem Diabetic autonomic neuropathy E11.43 Active associated with type 2 diabetes mellitus Assessment Hypothyroidism, unspecified type E03.9 Active Problem Type 2 diabetes mellitus without E11.9 Active complications Problem Type 2 diabetes mellitus with other E11.39 Active diabetic ophthalmic complication Problem Congestive heart failure, I50.9 Ac tive unspecified HF chronicity, unspecified heart failure type Problem Falls frequently R29.6 Active Medications Medication Code Code Instructions Start End Status Dosage System Date Date Levothyroxine [facility] 07753809966 88 MCG Orally Active 1 tablet Sodium Once a day on an empty stomach in the morning Results No Known Results Summary Purpose eClinicalWorks Submission
--- OUTSIDE RECORDS SUMMARY | 2020-04-25 17:36 | XMS REPORT ---
[...] diabetes mellitus Problem Type 2 diabetes mellitus without E11.9 Active complications Problem Type 2 diabetes mellitus with other E11.39 Active diabetic ophthalmic complication Problem Congestive heart failure, I50.9 Ac tive unspecified HF chronicity, unspecified heart failure type Problem Falls frequently R29.6 Active Medications No Known Medications Results No Known Results Summary Purpose eClinicalWorks Submission
--- OUTSIDE RECORDS SUMMARY | 2020-04-25 17:36 | XMS REPORT ---
:1955 Author Organization eClinicalWorks Care Team Providers Name Role Phone Roseanne Dahl Provider Role Unavailable Allergies, Adverse Reactions, Alerts Substance Reaction Event Type N.K.D.A. 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 Active Assessment Type 2 diabetes mellitus with E11.21 Active diabetic nephropathy Assessment Type 2 diabetes mellitus with E11.65 Active hyperglycemia Assessment Congestive heart failure, I50.9 Ac tive unspecified HF chronicity, unspecified heart failure type Problem Type 2 diabetes mellitus with other E11.39 Active diabetic ophthalmic complication Assessment Essential (primary) hypertension I10 Active Problem Falls frequently R29.6 Active Problem Psychophysiological insomnia F51.04 Active Problem Insomnia, unspecified type G47.00 A ctive Problem Abdominal pain, unspecified R10.9 Active abdominal location Problem Tremor of both hands R25.1 Active Problem Blindness of both eyes H54.3 Activ e Problem Depression with anxiety F41.8 Acti ve Problem Obstructive sleep apnea G47.33 Acti ve Problem Multiple falls R29.6 Active Problem custodial current use of insulin Z79.4 Active Problem Diarrhea, unspecified type R19.7 A ctive Problem Type 2 diabetes mellitus with E11.21 Active diabetic nephropathy Problem Constipation, unspecified K59.00 Ac tive constipation type Problem Type 2 diabetes mellitus with E11.65 Active hyperglycemia Assessment Insomnia, unspecified type G47.00 A ctive Problem Hyperlipidemia, unspecified E78.5 Active hyperlipidemia type Assessment Multiple falls R29.6 Active Problem Insomnia due to medical condition G47.01 Active Problem Essential (primary) hypertension I10 Active Assessment Depression with anxiety F41.8 Acti ve Problem Hypothyroidism, unspecified type E03.9 Active Problem Unspecified visual loss H54.7 Acti ve Problem Diabetic autonomic neuropathy E11.43 Active associated with type 2 diabetes mellitus Problem Type 2 diabetes mellitus without E11.9 Active complications Problem Congestive heart failure, I50.9 Ac tive unspecified HF chronicity, unspecified heart failure type Medications Medication Code Code Instructions Start End Status Dosage System Date Date Lisinopril [facility] 20164740404 40 MG Orally Active 1 ta blet Once a day Methocarbamol [facility] 75290041444 750 MG Oral Active no t defined Novolin N [facility] 02541853569 100 UNIT/ML Active as Subcutaneous 65 directed units once daily Atorvastatin [facility] 42957222987 40 MG Orally Active 1 tablet Calcium Once a day in evening Insulin Syringe [facility] 42757556391 31G X 01/04" Jul 27, Active as ML subcutaneous 2018 directed Use with Insulin N & Insulin R Novolin R [facility] 77574652539 100 UNIT/ML Active as subcutaneous 20 directed units once daily with a meal; may use up to TID qac Belsomra [facility] 69328295623 10 MG Orally Jun 07, Active 1 tabl et Once a day 2018 at bedtime as needed Trazodone HCl [facility] 57713794847 100 mg Orally Active 1 tablet Once a day at bedtime as needed for sleep BusPIRone HCl [facility] 57411523810 5 MG Orally Active 1 tablet Twice daily Jardiance [facility] 40207345236 25 MG Orally Active 1 tab let Once a day Metoprolol [facility] 57755798670 50 MG Orally Active 1 ta blet Succinate ER Once a day Insulin NPH [facility] [address]-66 100 UNIT/ML Active as (Human) Subcutaneous as directed (Isophane) directed Insulin Regular [facility] [address]-39 500 UNIT/ML Active as Human (Conc) Subcutaneous as dir ected directed Liothyronine [facility] 87535959351 25 MCG Orally Active 1 tablet Sodium Once a day on an empty stomach Citalopram [facility] 31512456021 40 MG Orally Active 1 ta blet Hydrobromide Once a day Furosemide [facility] 09887195536 20 MG Oral Once Active 1 tablet a day Levemir [facility] 85873691311 100 UNIT/ML Active 70 units FlexTouch Subcutaneous daily Levothyroxine [facility] 33681076375 75 MCG Orally Active 1 tablet Sodium Once a day on an empty stomach in the morning Results Name Result Date Reference Range Unit Abnormali ty Flag HEMOGLOBIN A1C ----A1C 6.6% 20200131 Summary Purpose eClinicalWorks Submission
--- OUTSIDE RECORDS SUMMARY | 2020-04-25 17:36 | XMS REPORT ---
[...] Obstructive sleep apnea G47.33 Acti ve Problem group home current use of insulin Z79.4 Active Problem [...] associated with type 2 diabetes mellitus Assessment Congestive heart failure, I50.9 Ac tive unspecified HF chronicity, unspecified heart failure type Problem Type 2 diabetes mellitus without E11.9 Active complications Problem Type 2 diabetes mellitus with other E11.39 Active diabetic ophthalmic complication Problem Congestive heart failure, I50.9 Ac tive unspecified HF chronicity, unspecified heart failure type Problem Falls frequently R29.6 Active Medications Medication Code System Code Instructions Start Date End Date Status Dosage Furosemide [facility] 12601504661 20 MG Oral Once a Active 1 tablet day Results No Known Results Summary Purpose eClinicalWorks Submission
--- OUTSIDE RECORDS SUMMARY | 2020-04-25 17:36 | XMS REPORT ---
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
--- OUTSIDE RECORDS SUMMARY | 2020-04-25 17:36 | XMS REPORT ---
[...] Obstructive sleep apnea G47.33 Acti ve Problem longterm current use of insulin Z79.4 Active Problem [...]
[2020-04-25 18:27] LABS: Absolute Lymphocytes (CBC) 2.7 K/uL (0.7-4.9); Basophils % 0.7 % (0-1.3); Hematocrit 48.2 % (36.0-45.0); MPV 9.6 fL (7.6-11.3); RBC Red Blood Cell Count 5.29 M/uL (3.86-4.86)
[2020-04-25 19:37] LABS: ALT/SGPT 15 U/L (12-78); AST/SGOT 12 U/L (15-37); Albumin 3.6 g/dL (3.4-5.0); Alkaline Phosphatase 78 U/L (45-117); BUN Blood Urea Nitrogen 26 mg/dL (7-18); Bicarbonate 28 mmol/L (21-32); Bilirubin Direct < 0.1 mg/dL (0-0.2); Bilirubin Total 0.4 mg/dL (0.2-1.0); Glucose Level 142 mg/dL (74-106); Lipase 142 U/L (73-393); Potassium 3.6 mmol/L (3.5-5.1); Protein, Total 7.8 g/dL (6.4-8.2); Sodium Level 140 mmol/L (136-145); Troponin (Emerg Dept Use Only) < 0.02 ng/mL (0.0-0.045)
--- NOTE | 2020-04-25 20:38 | RAD REPORT ---
EXAM DESCRIPTION: RAD - Hip Left 2 View - 04/25/2020 7:03 pm CLINICAL HISTORY: Left hip pain FINDINGS: No fracture or dislocation is seen. The bones are osteoporotic. Mild to moderate joint space narrowing. If patient continues to have symptoms to suggest an occult fracture MRI would be recommended
[2020-04-25 21:12] LABS: Urine Bacteria <20 /HPF (<20); Urine RBC <5 /HPF (NONE SEEN)
[2020-04-25 21:13] LABS: Urine Culture Reflex Order NOT NEEDED
--- NOTE | 2020-04-29 20:06 | EKG ---
Test Date: 2020-04-25 Test Time: 18:34:12 Knurling Machine Tender: JOHN MEASUREMENT RESULTS: Intervals: Rate: 50 MN: 148 QRSD: 96 QT: 462 QTc: 421 [place]: P: 58 MN: 148 QRS: -36 T: 158 INTERPRETIVE STATEMENTS: Sinus bradycardia Left axis deviation Pulmonary disease pattern Left ventricular hypertrophy with repolarization abnormality Abnormal ECG Compared to ECG 05/03/2019 12:56:06 Left-axis deviation now present Early repolarization now present Sinus rhythm no longer present ST (T wave) deviation no longer present Possible ischemia no longer present Prolonged QT interval no longer present Electronically Signed On 04-29-20 19:59:54 CDT by Yomi Cid
== END ==
LOC: ER 17:33
DX: M25.552 Pain in left hip (principal); E11.65 Type 2 diabetes mellitus with hyperglycemia; R11.0 Nausea; I10 Essential (primary) hypertension; Z95.1 Presence of aortocoronary bypass graft
CPT/HCPCS: 93005; 85025; 80048; 36415; 82947; 80076; 81015; 84484; 83690; 73502; J0360; J2405 ×2

== ENCOUNTER 2020-04-27 14:48 | Emergency (ER) | payer OTHER ==
--- OUTSIDE RECORDS SUMMARY | 2020-04-27 14:51 | XMS REPORT ---
[...] Obstructive sleep apnea G47.33 Acti ve Problem [facility] current use of insulin Z79.4 Active Problem [...] End Status Dosage System Date Date Levothyroxine [facility] 38764819727 88 MCG Orally Active 1 tablet Sodium Once a day on an empty stomach in the morning Results No Known Results Summary Purpose eClinicalWorks Submission
--- OUTSIDE RECORDS SUMMARY | 2020-04-27 14:51 | XMS REPORT ---
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
--- OUTSIDE RECORDS SUMMARY | 2020-04-27 14:51 | XMS REPORT ---
[...] Obstructive sleep apnea G47.33 Acti ve Problem custodial current use of insulin Z79.4 [...]
--- OUTSIDE RECORDS SUMMARY | 2020-04-27 14:51 | XMS REPORT ---
[...] Hyperlipidemia, unspecified E78.5 Active hyperlipidemia type Problem terminal makeup operator current use of insulin Z79.4 Active [...]
--- OUTSIDE RECORDS SUMMARY | 2020-04-27 14:51 | XMS REPORT ---
[...] Hyperlipidemia, unspecified E78.5 Active hyperlipidemia type Assessment terminal gauger current use of insulin Z79.4 Active Assessment [...] ve Problem Multiple falls R29.6 Active Problem [facility] current use of insulin Z79.4 [...] End Status Dosage System Date Date Lisinopril [facility] 46432104699 40 MG Orally Active 1 ta blet Once a day Methocarbamol [facility] 36381471688 750 MG Oral Active no t defined Novolin N [facility] 06524502784 100 UNIT/ML Active as Subcutaneous 65 directed units once daily Atorvastatin [facility] 11796645871 40 MG Orally Active 1 tablet Calcium Once a day in evening Insulin Syringe [facility] 43502474139 31G X 01/04" Jul 27, Active as ML subcutaneous 2018 directed Use with Insulin N & Insulin R Novolin R [facility] 71268210614 100 UNIT/ML Active as subcutaneous 20 directed units once daily with a meal; may use up to TID qac Belsomra [facility] 77025184213 10 MG Orally Jun 07, Active 1 tabl et Once a day 2018 at bedtime as needed Trazodone HCl [facility] 16925341846 100 mg Orally Active 1 tablet Once a day at bedtime as needed for sleep BusPIRone HCl [facility] 65360969335 5 MG Orally Active 1 tablet Twice daily Jardiance [facility] 52068761230 25 MG Orally Active 1 tab let Once a day Metoprolol [facility] 55209402398 50 MG Orally Active 1 ta blet Succinate ER Once a day Insulin NPH [facility] [address]-43 100 UNIT/ML Active as (Human) Subcutaneous as directed (Isophane) directed Insulin Regular [facility] [address]-79 500 UNIT/ML Active as Human (Conc) Subcutaneous as dir ected directed Liothyronine [facility] 56357744944 25 MCG Orally Active 1 tablet Sodium Once a day on an empty stomach Citalopram [facility] 05987063437 40 MG Orally Active 1 ta blet Hydrobromide Once a day Furosemide [facility] 90101283189 20 MG Oral Once Active 1 tablet a day Levemir [facility] 53398013689 100 UNIT/ML Active 70 units FlexTouch Subcutaneous daily Levothyroxine [facility] 61949608746 75 MCG Orally Active 1 tablet Sodium Once a day on an empty stomach in the morning Results Name Result Date Reference Range Unit Abnormali ty Flag HEMOGLOBIN A1C ----A1C 6.6% [id number] Summary Purpose eClinicalWorks Submission
--- OUTSIDE RECORDS SUMMARY | 2020-04-27 14:51 | XMS REPORT ---
[...] Obstructive sleep apnea G47.33 Acti ve Problem intermediate current use of insulin Z79.4 Active Problem [...]
--- OUTSIDE RECORDS SUMMARY | 2020-04-27 14:51 | XMS REPORT ---
[...] Obstructive sleep apnea G47.33 Acti ve Problem senior living current use of insulin Z79.4 Active Problem [...] Start Date End Date Status Dosage Furosemide [facility] 64427244816 20 MG Oral Once a Active 1 tablet day Results No Known Results Summary Purpose eClinicalWorks Submission
--- OUTSIDE RECORDS SUMMARY | 2020-04-27 14:51 | XMS REPORT | Continuity of Care Document ---
:1955 Author Organization [facility] t Address [address] [place] [address] Care Team Providers Name Role Phone Unavailable Unavailable Unavailable Problems Condition Condition Condition Status Onset Resolution Last Treating Co mments Source Name Details Category Date Date Treatment Clinician Date Unspecifie Unspecifie Problem Active [facility] visual d visual [facility] loss loss [facility] Hypothyroi Hypothyroi Problem Active [facility] dism, dism, [facility] - unspecifie unspecifie Me moria d type d type l [facility] Congestive Congestive Problem Active [facility] heart heart [facility] - failure, failure, Memori a unspecifie unspecifie l d HF d HF Outpati chronicity chronicity en t , , Clinics unspecifie unspecifie d heart d heart failure failure type type Depression Depression Problem Active [facility] with with [facility] - anxiety anxiety [facility] Obstructiv Obstructiv Problem Active [facility] e sleep e sleep [facility] - apnea apnea [facility] Essential Essential Problem Active [facility]primary[facility] (primary[facility] - hypertensi hypertensi Me moria on on l [facility] Insomnia Insomnia Problem [facility] due to due to [facility] - medical medical Memoria condition condition l Outpati ent Clinics Hyperlipid Hyperlipid Problem Active [facility] emia, emia, [facility] - unspecifie unspecifie Me moria d d l hyperlipid hyperlipid Ou tpati emia type emia type ent Clinics 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 Problem Active [facility]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 [facility] - use of use of Memoria insulin insulin l [facility] Type 2 Type 2 Problem [...] frequently frequently Serena kes - Memoria l [facility] Clinics Psychophys Psychophys Problem Active [facility] iological iological [facility] - insomnia insomnia Memori a l [facility] Clinics Insomnia, Insomnia, Problem Active [facility] unspecifie unspecifie Serena kes - d type d type Memoria l [facility] Clinics Type 2 Type [address] [facility] diabetes diabetes [facility] - mellitus mellitus Memori a with with l hyperglyce hyperglyce Ou tpati [facility] Clinics Type 2 Type [address] diabetes diabetes [facility] - mellitus mellitus Memori a with with l diabetic diabetic Outpat i nephropath nephropath en t y y Clinics Diarrhea, Diarrhea, Problem Active [facility] unspecifie unspecifie Serena kes - d type d type Memoria l [facility] Clinics Abdominal Abdominal Problem Active [facility] [...] both [facility] - eyes eyes [facility] l [facility] Tremor of Tremor of Problem Active [facility] both hands both hands Serena kes - Memoria l [facility] Allergies, Adverse Reactions, Alerts This patient has no known allergies or adverse reactions. Medications Ordered Filled Start Stop Current Ordering Indication Dosage Frequency Signature Comments Components Source Medication Medication Date Date Medication? Clinician (SIG) Name Name Furosemide Furosemide Yes Roseanne [address] [facility] Immunizations Ordered Filled Immunization Date Status Comments Sour e Immunization Name Name FLUZONE HIGH DOSE FLUZONE HIGH DOSE 2019-07-[address] [facility] - OVER [facility] OVER 65 00:00:00 [facility] Procedures This patient has no known procedures. Encounters Start End Encounter Admission Attending Care Care Encounter Source Date/Time Date/Time Type Type Clinicians Facility Department ID 2020-04-22 2020-04-22 [facility] [id number] 16:07:[facility] 16:07:[address] [facility] Medicine Outpati ent Clinics 2020-03-10 2020-03-10 [facility] [id number] 14:12:00 14:12:[address] [place] - Road [facility] Medicine Outpati ent Clinics 2020-02-18 2020-02-18 [facility] [id number] 16:18:00 16:18:00 t [facility] - Road [facility] Medicine Outpati [facility] Clinics 2020-02-06 2020-02-06 [facility] [id number] 13:37:00 13:37:00 t [facility] - Road [facility] Medicine Outpati ent Clinics 2020-02-04 2020-02-04 [facility] [id number] 01[facility]42:00 01:42:00 t [facility] s - Road [facility] Medicine Outpati ent Clinics 2020-01-31 2020-01-31 [facility] [id number] 14:20:00 14:20:00 [facility] [address] [facility] Medicine Outpati ent Clinics 2020-01-30 2020-01-30 [facility] [id number] 14:10:00 14:10:00 [facility] [address] [facility] Medicine Outpati ent Clinics 2019-12-03 2019-12-03 [facility] [id number] 16[facility]36:00 16:36:[address] [facility] [address] [facility] Medicine Outpati ent Clinics 2019-11-18 2019-11-18 [facility] [id number] 13:03:00 13:03:00 t [facility] - Road [facility] Medicine Outpati ent Clinics 2019-11-12 2019-11-12 [facility] [id number] 13:39:00 13:39:[address] [facility] Medicine Outpati ent Clinics 2019-10-31 2019-10-31 [facility] [id number] 13:30:00 13:30:00 t [facility] Medicine Outpati ent Clinics 2019-09-03 2019-09-03 [facility] [id number] 16:31:00 16:31:00 t [facility] Medicine Outpati ent Clinics 2019-07-31 2019-07-31 [facility] [id number] 16:41:00 16:41:00 t [facility] Medicine Outpati ent Clinics 2019-07-28 2019-07-28 [facility] [id number] 02:30:00 02:30:00 t [facility] Medicine Outpati ent Clinics 2019-07-27 2019-07-27 [facility] [id number] 16:20:00 16:20:00 t [facility] Medicine Outpati ent Clinics 2019-07-04 2019-07-04 [facility] [id number] 08[facility]55:00 08:55:00 t [facility] Medicine Outpati ent Clinics 2019-06-11 2019-06-11 [facility] [id number] 09:00:00 09:00:00 t [facility] Medicine Outpati ent Clinics 2019-06-07 2019-06-07 [facility] [id number] 11:00:00 11:00:00 t [facility] Medicine Outpati ent Clinics 2019-06-05 2019-06-05 [facility] [id number] 08[facility]30:00 08:30:00 t [facility] Medicine Outpati ent Clinics 2019-05-10 2019-05-10 [facility] [id number] 08:30:00 08:30:00 t [facility] Medicine Outpati ent Clinics 2019-05-02 2019-05-02 [facility] [id number] 11:27:00 11:27:00 t [facility] Medicine Outpati ent Clinics 2019-04-17 2019-04-17 [facility] [id number] 16:14:00 16:14:00 t [facility] Medicine Outpati ent Clinics 2019-03-26 2019-03-26 [facility] [id number] 09:22:00 09:22:00 t [facility] Medicine Outpati ent Clinics 2019-03-09 2019-03-09 [facility] [id number] 09:45:00 09:45:00 t [facility] Medicine Outpati ent Clinics 2019-03-01 2019-03-01 [facility] [id number] 12:06:00 12:06:00 t [facility] Medicine Outpati ent Clinics 2019-02-20 2019-02-20 [facility] [id number] 14:01:00 14:01:00 [facility] Medicine Outpati ent Clinics 2019-02-08 2019-02-08 [facility] [id number] 13:15:00 13:15:00 t [facility] Medicine Outpati ent Clinics 2019-02-06 2019-02-06 [facility] [id number] 13:59:00 13:59:00 t [facility] Medicine Outpati ent Clinics 2018-12-27 2018-12-27 [facility] [id number] 13:30:00 13:30:00 [facility] Medicine Outpati ent Clinics Results This patient has no known results.
[2020-04-27] MEDS ORDERED: ONDANSETRON 4 MG/2 ML VIAL ONE (15:48)
[2020-04-27] MEDS ORDERED: MORPHINE 4 MG/ML SYR ONE (15:48)
[2020-04-27] MEDS ORDERED: LIDOCAINE 1% MPF 5 ML VIAL ONE (16:07)
--- NOTE | 2020-04-27 16:27 | RAD REPORT ---
EXAM DESCRIPTION: RAD - Forearm Left - 04/27/2020 4:17 pm CLINICAL HISTORY: Left forearm pain status post injury FINDINGS: Markedly displaced fractures involve the distal radius and ulna. A dislocation is also present.
[2020-04-27] MEDS ORDERED: FENTANYL CITR 100 MCG/2 ML ONE (16:40)
--- NOTE | 2020-04-27 17:30 | ER ---
Nurse's Notes [facility] Name: Indira Chavis Age: 65 yrs Sex: Female : 1955 Arrival Date: 04/27/2020 Time: 14:50 Bed 19 Private MD: Diagnosis: Displaced fracture distal left radius;Displaced fracture distal left ulna Presentation: 04/27 15:02 Chief complaint: Patient states: Was walking up a slight hill to the truck and fell rb1 landing on her butt and left wrist. Denies hitting head or back pain. 15:02 Coronavirus screen: Client denies travel out of the [place] in the last 14 days. Ebola rb1 Screen: Patient denies travel to an Ebola-affected area in the 21 days before illness onset. 15:02 Method Of Arrival: Wheelchair rb1 15:02 Acuity: KERMIT 3 rb1 15:02 Initial Sepsis Screen: Does the patient meet any 2 criteria? No. Patient's initial rb1 sepsis screen is negative. Does the patient have a suspected source of infection? No. Patient's initial sepsis screen is negative. Risk Assessment: Do you want to hurt yourself or someone else? Patient reports no desire to harm self or others. Onset of symptoms was April 27, 2020 at 14:00. Triage Assessment: 15:02 General: Appears in no apparent distress. comfortable, Behavior is calm, cooperative. rb1 Pain: Complains of pain in left wrist Pain currently is 8 out of 10 on a pain scale. Pain began 1 hour ago. Neuro: Level of Consciousness is awake, alert, obeys commands, Oriented to person, place, time, situation. Neuro: Denies Hitting her head when she fell. Cardiovascular: Capillary refill < 3 seconds. Respiratory: Airway is patent Respiratory effort is even, unlabored, Respiratory pattern is regular, symmetrical. GI: No signs and/or symptoms were reported involving the gastrointestinal system. : No signs and/or symptoms were reported regarding the genitourinary system. Derm: Skin is pink, warm \T\ dry. Musculoskeletal: Range of motion: limited in left wrist. Historical: - Allergies: 15:02 No Known Allergies; rb1 - Home Meds: 15:02 atorvastatin Oral [Active]; Furosemide Oral [Active]; Levemir 100 unit/mL subcutaneous rb1 soln daily [Active]; lisinopril Oral [Active]; Metformin Oral [Active]; Metoprolol Tartrate Oral [Active]; - PMHx: 15:02 BLINDNESS; CAD; CHF; Diabetes - IDDM; High Cholesterol; Hypertension; Hypothyroidism; rb1 - PSHx: 15:02 Tubal ligation; CABG; cataract; eye; rb1 - Immunization history:: Adult Immunizations up to date. - Social history:: Smoking status: Patient/guardian denies using. Screenin:02 Abuse screen: Denies threats or abuse. Nutritional screening: No deficits noted. rb1 Tuberculosis screening: No symptoms or risk factors identified. Assessment: 15:02 General: See triage assessment. rb1 16:08 Reassessment: Patient appears in no apparent distress at this time. Patient and/or rb1 family updated on plan of care and expected duration. Pain level reassessed. Patient is alert, oriented x 3, equal unlabored respirations, skin warm/dry/pink. 16:47 Reassessment: Provider at the bedside performing a reduction to the left wrist. rb1 17:30 Reassessment: Reduction to the left wrist is complete, pt. tolerated well. RICHARD Adkins rb1 applied a Sugar Tong splint on the left wrist. Pt. reports that her pain has decreased. 18:29 Reassessment: Patient appears in no apparent distress at this time. Patient and/or rb1 family updated on plan of care and expected duration. Pain level reassessed. Patient is alert, oriented x 3, equal unlabored respirations, skin warm/dry/pink. Vital Signs: 15:02 BP 184 / 72; Pulse 61; Resp 17; Temp 98.5(TE); Pulse Ox 99% on R/A; Weight 108.86 kg; rb1 Height 5 ft. 2 in. (157.48 cm); Pain 8/10; 16:00 BP 212 / 59; Pulse 52; Resp 16; Pulse Ox 97% on R/A; rb1 16:45 BP 173 / 72; Pulse 56; Resp 17; Pulse Ox 97% ; rb1 17:45 BP 210 / 67; Pulse 55; Resp 19; Pulse Ox 98% ; rb1 18:29 BP 203 / 72; Pulse 58; Resp 18; Pulse Ox 96% on R/A; Pain 2/10; rb1 15:02 Body Mass Index 43.90 (108.86 kg, 157.48 cm) [facility] ED Course: 14:50 Patient arrived in ED. as 15:02 Arm band placed on right wrist. rb1 15:02 Patient has correct armband on for positive identification. Bed in low position. Call rb1 light in reach. Side rails up X 1. Pulse ox on. NIBP on. 15:06 Roberto Adkins, CHURCH WORKER is PHCP. pm1 15:06 Marion Livingston MD is Attending Physician. pm1 15:08 Cally Mart, RN is Primary Nurse. rb1 15:40 Inserted saline lock: 20 gauge in right hand, using aseptic technique. dh4 15:50 Triage completed. rb1 16:17 Forearm Left XRAY In Process Unspecified. EDMS 17:08 Wrist Left 2 View In Process Unspecified. EDMS 17:34 initiated a transfer with Orin from the [facility]. eb 17:[address] Brunson the ortho surgeon securities consultant for [facility] with joel Mejia Np for patient transfer consultation. 18:42 Assist provider with reduction of left wrist using traction, manipulation, Performed by rb1 Roberto Adkins CHURCH WORKER Immobilized with wrist splint, Patient tolerated well. IV discontinued, intact, bleeding controlled, No redness/swelling at site. Pressure dressing applied. Administered Medications: 15:48 Drug: morphine 4 mg Route: IVP; Site: right hand; rb1 16:15 Follow up: Response: No adverse reaction; Pain is decreased rb1 15:49 Drug: Zofran (Ondansetron) 4 mg Route: IVP; Site: right hand; rb1 16:15 Follow up: Response: No adverse reaction rb1 16:30 Drug: Lidocaine (1 %) 5 ml Volume: 5 ml; Route: Infiltration; rb1 16:45 Drug: fentaNYL (PF) 50 mcg Route: IVP; Site: right hand; rb1 17:00 Follow up: Response: No adverse reaction; Pain is unchanged, physician notified rb1 17:05 Drug: fentaNYL (PF) 50 mcg Route: IVP; Site: right hand; rb1 17:25 Follow up: Response: No adverse reaction; Pain is decreased rb1 Outcome: 17:29 ER care complete, transfer ordered by MD. pm1 18:00 Discharge ordered by . pm1 18:42 Patient left the ED. rb1 18:42 Discharged to home via wheelchair, with family. rb1 18:42 Condition: stable 18:42 Discharge instructions given to patient, Instructed on discharge instructions, follow up and referral plans. medication usage, Demonstrated understanding of instructions, follow-up care, medications, Prescriptions given X 1. Signatures: Dispatcher [employer] Judie Castro Rebecca, RN RN rb1 Roberto Adkins NP CHURCH WORKER pm1 Maritza Vasquez Donald 4 Corrections: (The following items were deleted from the chart) 15:32 15:02 BP 184 / 72; Pulse 61bpm; Resp 17bpm; Pulse Ox 99% RA; rb1 rb1 19:27 19:19 Patient left the ED. rb1 rb1
--- NOTE | 2020-04-27 17:30 | EDPHYS ---
Physician Documentation [facility] Name: Indira Chavis Age: 65 yrs Sex: Female : 1955 Arrival Date: 04/27/2020 Time: 14:50 Bed 19 Private MD: ED Physician Marion Livingston HPI: 04/27 15:30 This 65 yrs old Female presents to ER via Wheelchair with complaints of Fall pm1 Injury, Wrist Injury. 15:30 Details of fall: The patient fell from an upright position, while walking. Onset: The pm1 symptoms/episode began/occurred 1 hour(s) ago. Associated injuries: The patient sustained left wrist, obvious fracture, Pain. Severity of symptoms: in the emergency department the symptoms are unchanged. The patient has not experienced similar symptoms in the past. Patient walking up a slight incline and lost balance. Fell back on her left hand and buttocks. Presenting with pain to left wrist. No back pain, hip pain, headache, head injury, LOC< neck pain. Historical: - Allergies: 15:02 No Known Allergies; rb1 - Home Meds: 15:02 atorvastatin Oral [Active]; Furosemide Oral [Active]; Levemir 100 unit/mL subcutaneous rb1 soln daily [Active]; lisinopril Oral [Active]; Metformin Oral [Active]; Metoprolol Tartrate Oral [Active]; - PMHx: 15:02 BLINDNESS; CAD; CHF; Diabetes - IDDM; High Cholesterol; Hypertension; Hypothyroidism; rb1 - PSHx: 15:02 Tubal ligation; CABG; cataract; eye; rb1 - Immunization history:: Adult Immunizations up to date. - Social history:: Smoking status: Patient/guardian denies using. ROS: 15:30 Constitutional: Negative for fever, chills, and weight loss, Neck: Negative for injury, pm1 pain, and swelling, Cardiovascular: Negative for chest pain, palpitations, and edema, Respiratory: Negative for shortness of breath, cough, wheezing, and pleuritic chest pain, Abdomen/GI: Negative for abdominal pain, nausea, vomiting, diarrhea, and constipation, Back: Negative for injury and pain. 15:30 Skin: Negative for injury, rash, and discoloration, Neuro: Negative for headache, weakness, and seizure, a little numbness and tingling to left hand 15:30 MS/extremity: Positive for pain, of the left wrist. Exam: 15:30 Constitutional: This is a well developed, well nourished patient who is awake, alert, pm1 and in no acute distress. Head/Face: Normocephalic, atraumatic. Neck: Trachea midline, no thyromegaly or masses palpated, and no cervical lymphadenopathy. Supple, full range of motion without nuchal rigidity, or vertebral point tenderness. No Meningismus. Chest/axilla: Normal chest wall appearance and motion. Nontender with no deformity. No lesions are appreciated. 15:30 Cardiovascular: Rate: normal, Rhythm: regular, Pulses: no pulse deficits are appreciated. 15:30 Respiratory: Exam negative for acute changes, respiratory distress, shortness of breath. 15:30 Abdomen/GI: Inspection: obese Palpation: abdomen is soft and non-tender, in all quadrants. 15:30 Skin: Appearance: injury, is not appreciated, no laceration, abrasion, or puncture present to left hand, wrist, forearm, elbow. 15:30 Neuro: Exam negative for acute changes, Orientation: is normal, Mentation: is normal, Motor: is normal, moves all fours, Sensation: no obvious gross deficits. Vital Signs: 15:02 BP 184 / 72; Pulse 61; Resp 17; Temp 98.5(TE); Pulse Ox 99% on R/A; Weight 108.86 kg; rb1 Height 5 ft. 2 in. (157.48 cm); Pain 8/10; 16:00 BP 212 / 59; Pulse 52; Resp 16; Pulse Ox 97% on R/A; rb1 16:45 BP 173 / 72; Pulse 56; Resp 17; Pulse Ox 97% ; rb1 17:45 BP 210 / 67; Pulse 55; Resp 19; Pulse Ox 98% ; rb1 18:29 BP 203 / 72; Pulse 58; Resp 18; Pulse Ox 96% on R/A; Pain 2/10; rb1 15:02 Body Mass Index 43.90 (108.86 kg, 157.48 cm) rb1 Procedures: 16:37 Reduction: of the left wrist, using traction, Patient tolerated well. Dr. Dubon and I pm1 used traction with manipulation to reduce dislocation and fracture. Patient tolerated well with the medications given. Hematoma block 5 ml Lidocaine 1% given to dorsal aspect of wrist. 17:24 Splinting: Splint applied to left arm using Orthoglass splint, applied by myself. tech. pm1 Examined by me, post splint application: neurovascular intact, 2+ distal pulses palpable, brisk capillary refill noted, Patient tolerated well. MDM: 15:24 Patient medically screened. pm1 17:25 Data reviewed: vital signs. Data interpreted: Pulse oximetry: on room air is 99 %. pm1 Interpretation: normal. 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 17:54 Physician consultation: Orthopedics Sean was contacted at 17:45, regarding regarding pm1 transfer, patient's condition, recommends consultation with hand surgery, not orthopedics. 17:54 Physician consultation: Hand Surgery Nannette regarding regarding transfer, to pm1 [facility]. patient's condition, He does not see a need for transfer because dislocation was resolved, patient is no longer having any numbness or tingling to her hand, and no injury to skin or open fracture, and neurovascular status intact. He would be happy to see her in the office in 2-3 days. His office number is [phone] and he is in clinic on Tuesdays and Wednesdays. 04/27 15:27 Order name: Forearm Left XRAY; Complete Time: 16:37 pm1 04/27 17:04 Order name: Wrist Left 2 View; Complete Time: 17:39 EDMS 04/27 15:27 Order name: IV Saline Lock; Complete Time: 15:42 pm1 04/27 16:05 Order name: Splint - Sugar Tong - Forearm; Complete Time: 18:12 pm1 04/27 16:05 Order name: Sling; Complete Time: 18:12 pm1 Administered Medications: 15:48 Drug: morphine 4 mg Route: IVP; Site: right hand; rb1 16:15 Follow up: Response: No adverse reaction; Pain is decreased rb1 15:49 Drug: Zofran (Ondansetron) 4 mg Route: IVP; Site: right hand; rb1 16:15 Follow up: Response: No adverse reaction rb1 16:30 Drug: Lidocaine (1 %) 5 ml Volume: 5 ml; Route: Infiltration; rb1 16:45 Drug: fentaNYL (PF) 50 mcg Route: IVP; Site: right hand; rb1 17:00 Follow up: Response: No adverse reaction; Pain is unchanged, physician notified rb1 17:05 Drug: fentaNYL (PF) 50 mcg Route: IVP; Site: right hand; rb1 17:25 Follow up: Response: No adverse reaction; Pain is decreased rb1 Disposition: 04/28 08:33 Co-signature as Attending Physician, Marion Livingston MD. ma2 Disposition: 04/27/20 18:00 Discharged to Home. Impression: Displaced fracture distal left radius, Displaced fracture distal left ulna. - Condition is Stable. - Discharge Instructions: Cast or Splint Care, Adult, Wrist Fracture Treated With Immobilization, How to Use a Sling. - Prescriptions for Tylenol- Codeine #3 300-30 mg Oral Tablet - take 2 tablets by ORAL route every 6 hours As needed; 20 tablet. - Medication Reconciliation Form, Thank You Letter, Antibiotic Education, Prescription Opioid Use form. - Follow up: Emergency Department; When: As needed; Reason: Worsening of condition. Follow up: Private Physician; When: 2 - 3 days; Reason: Recheck today's complaints, Continuance of care, Re-evaluation by your physician. - Problem is new. - Symptoms have improved. - Notes: Dr. Brunson Hand surgery [phone] Signatures: Dispatcher [employer] EDLA Cally Mart RN RN rb1 Roberto Adkins, ETCHER ENAMELING ETCHER ENAMELING pm1 Marion Livingston MD MD ma2 Corrections: (The following items were deleted from the chart) 04/27 17:04 16:48 Forearm Left+RAD.RAD.BRZ ordered. EDLA EDLA 17:56 17:29 04/27/2020 17:29 Transfer ordered to [facility]. Diagnosis is Closed pm1 markedly displaced fracture of distal ulna with dislocationClosed markedly displaced fracture of distal radius. Reason for transfer: Specialty. Accepting physician is [facility] Trauma. Condition is Stable. Problem is new. Symptoms have improved. pm1 19:19 18:00 04/27/2020 18:00 Discharged to Home. Impression: Displaced fracture distal left rb1 radius; Displaced fracture distal left ulna. Condition is Stable. Forms are Medication Reconciliation Form, Thank You Letter, Antibiotic Education, Prescription Opioid Use. Follow up: Emergency Department; When: As needed; Reason: Worsening of condition. Follow up: Private Physician; When: 2 - 3 days; Reason: Recheck today's complaints, Continuance of care, Re-evaluation by your physician. Problem is new. Symptoms have improved. pm1 19:36 15:30 Skin: Negative for injury, rash, and discoloration, Neuro: Negative for headache, pm1 weakness, numbness, tingling, and seizure, pm1
--- NOTE | 2020-04-27 17:35 | RAD REPORT ---
EXAM DESCRIPTION: RAD - Wrist Left 2 View - 04/27/2020 5:08 pm CLINICAL HISTORY: Radial fracture FINDINGS: There is better alignment of distal radial and ulnar fracture fragments although marked di splacement persists
[2020-04-28 16:02] VITALS: TEMP 98.5
[2020-04-28 16:07] VITALS: BP 203/72; O2SAT 96
== END 2020-04-27 19:19 | disposition home or self-care (01) ==
LOC: ER 14:48
PROC: 0PSJXZZ Reposition Left Radius, External Approach (ICD-10-PCS; principal; 2020-04-27)
PROC: 0PSLXZZ Reposition Left Ulna, External Approach (ICD-10-PCS; 2020-04-27)
DX: S52.502A Unspecified fracture of the lower end of left radius, initial encounter for closed fracture (principal); S52.602A Unspecified fracture of lower end of left ulna, initial encounter for closed fracture; W19.XXXA Unspecified fall, initial encounter; Y93.01 Activity, walking, marching and hiking; Y92.9 Unspecified place or not applicable; Z79.4 Long term (current) use of insulin; Z95.1 Presence of aortocoronary bypass graft; I10 Essential (primary) hypertension; E78.00 Pure hypercholesterolemia, unspecified; E11.9 Type 2 diabetes mellitus without complications; I50.9 Heart failure, unspecified; E03.9 Hypothyroidism, unspecified
CPT/HCPCS: 73090; 73100; 96375; 96374; 99284; 25415; J3010; J2405

== ENCOUNTER 2020-08-30 10:58 | Inpatient (IN) | payer OTHER ==
--- OUTSIDE RECORDS SUMMARY | 2020-08-30 11:00 | XMS REPORT | Continuity of Care Document ---
:1955 Author Organization [facility] t Address [address] [place] [address] Care Team Providers Name Role Phone Kathi PETERSON Attending Clinician Wilman JARAMILLO Attending Clinician Problems This patient has no known problems. Allergies, Adverse Reactions, Alerts This patient has no known allergies or adverse reactions. Medications Ordered Filled Start Stop Current Ordering Indication Dosage Frequency Signature Comments Components Source Medication Medication Date Date Medication? Clinician (SIG) Name Name Furosemide Furosemide Yes Roseanne [address] [facility] Immunizations Ordered Filled Immunization Date Status Comments Sourc e Immunization Name Name FLUZONE HIGH DOSE FLUZONE HIGH DOSE 2019-07-[address] [facility] OVER 65 00:[facility]:[address] [facility] Procedures This patient has no known procedures. Encounters Start End Encounter Admission Attending Care Care Encounter Source Date/Time Date/Time Type Type Clinicians Facility Department ID 2020-08-27 2020-08-27 [facility] [id number] 13:07:15 23:59:00 Encounter Jose SPECIALTY [id number] CARE [id number] FIR[facility] AT [id number] ANASTASIA 809 [facility] 2020-08-27 2020-08-27 Office Wilman [facility] [id number] 12:42:33 13:42:16 Visit Abena SPECIALTY [id number] CARE [id number] [facility] [id number] ANASTASIA Galdamez [facility] 2020-08-04 2020-08-04 Outpatient [facility] [id number] [facility] 2020-07-21 2020-07-21 Outpatient [facility] [id number] [facility] 2020-06-27 2020-06-27 Out[facility] [id number] [facility] 2020-06-02 2020-06-02 Out[facility] [id number] [facility] 2020-04-22 2020-04-22 [facility] [id number] [facility] 16:07:00 16:07:00 t [facility] l Medicine Outpati ent Clinics 2020-03-10 2020-03-10 [facility] [id number] [facility] 14:12:00 14:12:00 t [facility] Outpat[facility] Clin[facility] 2020-02-18 2020-02-18 [facility] [id number] [facility] 16:18:00 16:18:00 [facility] l Medicine Outpati ent Clinics 2020-02-06 2020-02-06 [facility] [id number] [facility] 13:37:00 13:37:00 [facility] Medicine l Medicine Outpati ent Clinics 2020-02-04 2020-02-04 [facility] [id number] 01:42:00 01:42:00 t [facility] Medicine Outpat[facility] Clinics 2020-01-31 2020-01-31 [facility] [id number] [facility] 14:20:00 14:20:00 t [facility] Out[facility] Clin[facility] 2020-01-30 2020-01-30 [facility] [id number] [facility] 14[facility]10:00 14:10:00 t [facility] Medicine Medicine Outpati ent Clinics 2019-12-03 2019-12-03 [facility] [id number] [facility] 16:36:00 16:36:00 t [facility] Medicine l Medicine Outpati ent Clinics 2019-11-18 2019-11-18 [facility] [id number] 13:03:00 13:03:00 t [facility] Medicine l Medicine Outpati ent Clinics 2019-11-12 2019-11-12 [facility] [id number] 13:39:00 13:39:00 t [facility] Medicine l Medicine Outpati ent Clinics 2019-10-31 2019-10-31 [facility] [id number] 13:30:00 13:30:00 t [facility] Medicine l Medicine Outpati ent Clinics 2019-09-03 2019-09-03 [facility] [id number] 16:31:00 16:31:00 t [facility] Medicine l Medicine Outpati ent Clinics 2019-07-31 2019-07-31 [facility] [id number] [facility] 16:41:00 16:41:00 t [facility] Medicine Medicine Outpati ent Clinics 2019-07-28 2019-07-28 [facility] [id number] [facility] 02:30:00 02:30:00 t [facility] Medicine l Medicine Outpati ent Clinics 2019-07-27 2019-07-27 [facility] [id number] [facility] 16:20:00 16:20:00 t [facility] Medicine l Medicine Outpati ent Clinics 2019-07-04 2019-07-04 [facility] [id number] [facility] 08[facility]55:00 08:55:00 t [facility] Medicine l Medicine Outpati ent Clinics 2019-06-11 2019-06-11 [facility] [id number] [facility] 09:00:00 09:00:00 t [facility] Medicine Outpati ent Clinics 2019-06-07 2019-06-07 [facility] [id number] 11:00:00 11:00:00 t [facility] Medicine Outpati ent Clinics 2019-06-05 2019-06-05 [facility] [id number] 08:30:00 08:30:00 t [facility] Medicine Outpati ent Clinics 2019-05-10 2019-05-10 [facility] [id number] [facility] 08:30:00 08:30:00 t [facility] Medicine Outpati ent Clinics 2019-05-02 2019-05-02 [facility] [id number] 11:27:00 11:27:00 t [facility] Medicine Medicine Outpati ent Clinics 2019-04-17 2019-04-17 [facility] [id number] [facility] 16:14:00 16:14:00 t [facility] Medicine Outpati ent Clinics 2019-03-26 2019-03-26 [facility] [id number] 09:22:00 09:22:00 t [facility] Medicine Medicine Outpati ent Clinics 2019-03-09 2019-03-09 [facility] [id number] 09:45:00 09:45:00 t [facility] Medicine Outpati ent Clinics 2019-03-01 2019-03-01 [facility] [id number] 12:06:00 12:06:00 t [facility] Medicine Outpati ent Clinics 2019-02-20 2019-02-20 [facility] [id number] 14:01:00 14:01:00 t [facility] 2019-02-08 2019-02-08 [facility] [id number] [facility] 13:15:00 13:15:00 t [facility] ent Clinics 2019-02-06 2019-02-06 [place] [id number] 13:59:00 13:59:00 t [facility] 2018-12-27 2018-12-27 [place] [facility] [place] [id number] [facility] 13:30:00 13:30:00 [facility] ent Clinics Results This patient has no known results.
--- OUTSIDE RECORDS SUMMARY | 2020-08-30 11:00 | XMS REPORT | Summary of Care ---
:1955 Author Organization [facility] Address [address] [place] [id number] Care Team Providers Name Role Phone Roseanne Dahl Primary Care Provider Reason for Referral (RACHEL) Status Reason Specialty Diagnoses / Referred By Referred To Procedures Contact Contact New Request Plastic Surgery Diagnoses Closed fracture of distal end of left radius, unspecified fracture morphology, initial encounter Gasper Shelton, Procedures CONSULT/REFERRAL WOUND CARE [address] [place] [address] (Routine) Status Reason Specialty Diagnoses / Referred By Referred To Procedures Contact Contact New Request Occupational Diagnoses Closed fracture of distal end of left radius, unspecified fracture morphology, initial encounter Kathi, Therapy Procedures CONSULT/REFERRAL OCCUPATIONAL THERAPY MD Gasper [address] [place] [address] Reason for Visit Reason Comments Follow-up 2 wk post op Other (Routine) Status Reason Specialty Diagnoses / Referred By Referred To Procedures Contact Contact Authorized Orthopedic Surgery Diagnoses Closed fracture of distal end of left radius, unspecified fracture morphology, initial encounter Gasper Shelton, Gasper Shelton, Procedures Discharge Follow-up: Specialty Provider GASPER SHETLON; 2 Weeks MD PETERSON [address] [place] [address] Phone: Fax: Encounter Details Date Type Department Care Team Description 06/02/2020 Office Visit [facility] Gasper Shelton MD Closed fracture of Orthopaedic Surgery- [address] di stal end of left [place] [facility], unspecified Primary Care Candis Barnes [place], [place] fracture morphology, [address], [address] initial encounter [address] (Primary Dx) [place] [address] [phone] Allergies No Known Allergiesdocumented as of this encounter (statuses as of 06/02/2020) Medications Medication Sig Dispensed Refills Start Date End Date Status acetaminophen-codei TAKE 2 TABLETS BY 0 04/28/2020 Active ne 300-30 mg tablet MOUTH EVERY 6 HOURS NEEDED FOR PAIN atorvastatin 40 mg TAKE 1 TABLET BY 0 03/03/2020 Active tablet MOUTH ONCE DAILY IN THE EVENING FOR 90 DAYS busPIRone 5 mg TAKE 1 TABLET BY 0 02/08/2020 Active tablet MOUTH TWICE DAILY FOR 90 DAYS citalopram 40 mg TAKE 1 TABLET BY 0 03/25/2020 Active tablet MOUTH ONCE DAILY FOR 90 DAYS JARDIANCE 25 mg Tab 0 05/04/2020 Active furosemide 20 mg TAKE 1 TABLET BY 0 03/14/2020 Active tablet MOUTH ONCE DAILY FOR 90 DAYS traMADoL 50 mg Take 50 mg by mouth 0 04/26/2020 Active tablet every 8 (eight) hours as needed. traZODone 100 mg 0 05/04/2020 Ac tive tablet ondansetron 4 mg TAKE 1 TABLET BY 0 04/26/2020 Active tablet MOUTH EVERY 12 HOURS NEEDED metoprolol 0 05/04/2020 Active succinate XL 50 mg 24 hr tablet meloxicam 7.5 mg TAKE 1 TABLET BY 0 04/26/2020 Active tablet MOUTH ONCE DAILY WITH FOOD lisinopriL 40 mg TAKE 1 TABLET BY 0 03/25/2020 Active tablet MOUTH ONCE DAILY FOR 90 DAYS levothyroxine 88 0 05/04/2020 Ac tive mcg tablet levothyroxine 75 0 05/04/2020 Ac tive mcg tablet NOVOLIN N NPH U-100 INJECT 65 UNITS 0 03/21/2020 Active INSULIN 100 unit/mL SUBCUTANEOUSLY ONCE injection DAILY DIRECTED FOR 90 DAYS insulin NPH human inject 65 Units 0 Active isophane (NOVOLIN N under the skin SC) daily. insulin regular, Inject 20 Units as 0 Active human (NOVOLIN R directed 3 (three) INJECTION) times daily. Bzkrs-0-HYY-EPA-Fis Take 1 capsule by 0 Active h Oil (FISH OIL) mouth daily. 1,000 mg (120 mg-180 mg) Cap aspirin 81 mg EC Take 81 mg by mouth 0 Active tablet daily. sulfamethoxazole-tr Take 1 tablet by 14 tablet 0 06/02/2020 Active imethoprim mouth 2 (two) times (BACTRIM) 400-80 mg daily for 7 days. per tabletIndications: Closed fracture of distal end of left radius, unspecified fracture morphology, initial encounter documented as of this encounter (statuses as of 06/02/2020) Active Problems No known active problemsdocumented as of this encounter (statuses as of 06/02/2020) Social History Tobacco Use Types Packs/Day Years Used Date Never Smoker Smokeless Tobacco: Never Used Sex Assigned at Date Recorded Not on file COVID-19 Exposure Response Date Recorded In the last month, have you been in contact with No / Unsure 05/05/2020 3:22 PM CDT someone who was confirmed or suspected to have Coronavirus / COVID-19? documented as of this encounter Last Filed Vital Signs Vital Sign Reading Time Taken Comments Blood Pressure - - Pulse - - Temperature 36.7 C (98 F) 06/02/2020 3:28 PM CDT Respiratory Rate - - Oxygen Saturation - - Inhaled Oxygen Concentration - - Weight - - Height - - Body Mass Index - - documented in this encounter Progress Notes Reymundo Stanley MD - 06/02/2020 3:50 PM CDT Ortho Hand [facility] Note 06/02/2020 15:35 Procedure: Left hand distal radius and ulna ORIF of 05/15 History of Present Illness Indira Chavis is a 65 year old female who presents s/p the above listed procedure. She reports she was doing well until Tuesday, 05/31 when her caregiver noted significant swelling and blistering of her hand. Her caregiver called the Ed and was told to follow up with her surgeon as scheduled. She does report bu,pping her had a few times but denies any other traumatic events. No fever, chills, n/v. Doesreport diffuse numbness throughout hand. Past Medical History: Diagnosis Date Blindness of both eyes CAD (coronary artery disease) DM (diabetes mellitus) with complications HTN (hypertension) Past Surgical History: Procedure Laterality Date APPLICATION SPLINT UPPER EXTREMITY (SHX) Left 05/15/2020 Surgeon: Gasper Shelton MD; Location[facility] CABG, ARTERIAL, TWO DISTAL RADIUS ORIF Left 05/15/2020 Surgeon: Gasper Shelton MD; Location: [facility] OPEN CARPAL TUNNEL RELEASE Left 05/15/2020 Surgeon: Gasper Shelton MD; Location: [facility] Medications: Current Outpatient Medications: aspirin 81 mg EC tablet, Take 81 mg by mouth daily., Disp: , Rfl: insulin NPH human isophane (NOVOLIN N SC), inject 65 Units under the skin daily., Disp: , Rfl: insulin regular, human (NOVOLIN R INJECTION), Inject 20 Units as directed 3 (three) times daily., Disp: , Rfl: Bsmbm-7-SJN-EPA-Fish Oil (FISH OIL) 1,000 mg (120 mg-180 mg) Cap, Take 1 capsule by mouth daily., Disp: , Rfl: furosemide 20 mg tablet, TAKE 1 TABLET BY MOUTH ONCE DAILY FOR 90 DAYS, Disp: , Rfl: JARDIANCE 25 mg Tab, , Disp: , Rfl: levothyroxine 75 mcg tablet, , Disp: , Rfl: levothyroxine 88 mcg tablet, , Disp: , Rfl: lisinopriL 40 mg tablet, TAKE 1 TABLET BY MOUTH ONCE DAILY FOR 90 DAYS, Disp: , Rfl: meloxicam 7.5 mg tablet, TAKE 1 TABLET BY MOUTH ONCE DAILY WITH FOOD, Disp: , Rfl: metoprolol succinate XL 50 mg 24 hr tablet, , Disp: , Rfl: NOVOLIN N NPH U-100 INSULIN 100 unit/mL injection, INJECT 65 UNITS SUBCUTANEOUSLY ONCE DAILY ASDIRECTED FOR 90 DAYS, Disp: , Rfl: ondansetron 4 mg tablet, TAKE 1 TABLET BY MOUTH EVERY 12 HOURS NEEDED, Disp: , Rfl: traMADoL 50 mg tablet, Take 50 mg by mouth every 8 (eight) hours as needed., Disp: , Rfl: traZODone 100 mg tablet, , Disp: , Rfl: acetaminophen-codeine 300-30 mg tablet, TAKE 2 TABLETS BY MOUTH EVERY 6 HOURS NEEDED FOR PAIN, Disp: , Rfl: atorvastatin 40 mg tablet, TAKE 1 TABLET BY MOUTH ONCE DAILY IN THE EVENING FOR 90 DAYS, Disp: , Rfl: busPIRone 5 mg tablet, TAKE 1 TABLET BY MOUTH TWICE DAILY FOR 90 DAYS, Disp: , Rfl: citalopram 40 mg tablet, TAKE 1 TABLET BY MOUTH ONCE DAILY FOR 90 DAYS, Disp: , Rfl: Allergies: No Known Allergies Social History: Social History Socioeconomic History Marital status: Spouse name: Not on file Number of children: Not on file Years of education: Not on file Highest education level: Not on file Occupational History Not on file Social Needs Financial resource strain: Not on file Food insecurity Worry: Not on file Inability: Not on file Transportation needs Medical: Not on file Non-medical: Not on file Tobacco Use Smoking status: Never Smoker Smokeless tobacco: Never Used Substance and Sexual Activity Alcohol use: Not on file Drug use: Not on file Sexual activity: Not on file Lifestyle Physical activity Days per week: Not on file Minutes per session: Not on file Stress: Not on file Relationships Social connections Talks on phone: Not on file Gets together: Not on file Attends advent service: Not on file Active member of club or organization: Not on file Attends meetings of clubs or organizations: Not on file Relationship status: Not on file Intimate partner violence Fear of current or ex partner: Not on file Emotionally abused: Not on file Physically abused: Not on file Forced sexual activity: Not on file Other Topics Concern Not on file Social History Narrative Not on file Review of Systems: Constitutional: (-) fever, (-) chills Mouth/Throat: (-) facial droop Cardiovascular: (-) chest pain, (-) palpitations Respiratory: (-) cough, (-) shortness of breath, (-) dyspnea on exertion Gastrointestinal: (-) weight loss, (-) abdominal pain, (-) nausea, (-) vomiting Musculoskeletal/Neuro: See HPI All other review of systems negative. 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.: 5 Carry a shopping bag or briefcase.: 5 Wash your back.: 5 Use a knife to cut food.: 5 Recreational activites in which you take some force or impact through your arm, shoulder or hand.: 5 During the past week, to what extent has your arm, shoulder, or hand problem interfered with your normal social activites with family, friends, neighbours or groups?: 5 During the past week, were you limited in your work or other regular daily activites as a result of your arm, shoulder, or hand problem?: 5 Arm, shoulder or hand pain.: 5 Tingling (pins and needles) in your arm, shoulder or hand.: 3 During the past week, how much difficulty have you had sleeping because of the pain in your arm, shoulder, or hand? : 4 Quick Dash Disability/Symptom Score Calculated: 93.18 Physical Examination: Temp 36.7 C (98 F) (Temporal Artery) No fever General: NAD, pleasant and cooperative Skin: No rashes, no discoloration Resp: Breathing comfortably on RA Cardiology: RRR L UE: (Images to be uploaded in media tab) Skin: diffuse blistering with skin maceration of hand, most prominent in the palm. Superficial maceration wound to 1st webspace. Appearance of Limb: Moderate swelling throughout hand and digits. Dorsal incisions c/d/i with no signs of infection Motor intact to intrinsics and extrinsics, ROM: very limited due to swellinf Sensory Intact to Light Touch, Brisk Capillary Refill Imaging: No final results containing an impression from the past 2 days were found. ASSESSMENT: Indira Chavis is a 65 year old female s/p left hand distal radius and ulna ORIF of 05/15 PLAN: I have discussed the patient's physical exam and reviewed their x-rays and imaging with them in detail. All questions have been answered. We have talked about all the treatment options and have agreed upon: - dorsal sutures removed and hand dressed - OT for removable splint application - Wound care referral for daily dressing change education - Activity modification to minimize pain - NSAIDs prn for pain - 7 days of bactrim prescribed for prophylaxis, tramadol to be prescribed - Follow up in 1 week - Condition and plans were discussed with patient, who expressed understanding and is agreeable to the plan. - All questions were answered, concerns addressed; risks and benefits were discussed. - Patient was instructed to schedule earlier appointment if symptoms worsen. -Restrictions: EUGENIE Stanley MD Liz Ahn, MERCHANDISING EXECUTION ASSOCIATE - 06/02/2020 3:50 PM CDTFollow up 2wk post op left wrist. 03/31. Tristanian documented in this encounter Plan of Treatment Date Type Specialty Care Team Description 06/11/2020 Office Visit Orthopedic Surgery Chandler Shelton MD [address] [id number] Health Maintenance Due Date Last Done Comments HEPATITIS C (HCV) SCREEN 1955 DTaP,Tdap,and Td Vaccines (1 - Tdap) 1973 Breast Cancer Screening (MAMMOGRAM) 1994 COLON CANCER SCREENING ANNUAL FIT/FOBT 01/13/2004 COLON CANCER SCREENING FIT DNA EVERY 3 YEARS 01/13/2004 COLON CANCER SCREENING SIGMOIDOSCOPY EVERY 5 YEARS 01/13/2004 COLONOSCOPY 01/13/2004 Colorectal Cancer Screening 01/13/2004 Zoster Recombinant Vaccine (SHINGRIX) (1 of 2) 01/13/2004 Medicare Wellness Visit 2019 Osteoporosis Screening 2019 PNEUMOCOCCAL VACCINES 65+ (1 of 1 - PPSV23) 2019 INFLUENZA VACCINE (#1) 2020 Depression Screening 05/15/2021 05/15/2020 documented as of this encounter Implants Implanted Type Area Database Specialist Device Shelf Model / Identifier Expiration Serial / Date Lot Cancellous Crushed, Community Tissue Ser vices (1 10mm) Freeze Dried 7.5 Cc #1233-12 - [id number] BONE Left: Community Tissue 025 1233-12 / Implanted: Qty: 1 on 05/15/2020 by Gasper Shelton MD at [facility] [id number] / NA Component Sfc Outer 28mm Trimed #Sfcoc. - Sna Insert Left: [employer] 05/15/2030 SFCOC. / Implanted: Qty: 1 on 05/15/2020 by Gasper Shelton MD at [facility] Wrist NA / NA Plate Pin 5h Trimed #Rcp5 - S0 PLATE Left: [employer] 05/15/2020 RCP5 / Implanted: Qty: 1 on 05/15/2020 by Gasper Shelton MD at [facility] Wrist 0 / 0 Plate Hook 4h Trimed #Whv-4 - Sna PLATE Left: [employer] 05/15/2030 WHV-4 / Implanted: Qty: 1 on 05/15/2020 by Gasper Shelton MD at [facility] Wrist NA / NA Plate Wire Form 3h Trimed #Wfp3 - Sna PLATE Left: [employer] 05/15/2030 WFP3 / Implanted: Qty: 1 on 05/15/2020 by Gasper Shelton MD at [facility] Wrist NA / NA Plate Peg Ulnar 5h Trimed #Upg-5 - Sna PLATE Left: [employer] 05/15/2030 UPG-5 / Implanted: Qty: 1 on 05/15/2020 by Gasper Shelton MD at [facility] Wrist NA / NA Peg 2.1qrw85dl Threaded Locking Trimed Ref#Tpeg-12 - Sna Peg L eft: [employer] 05/15/2030 TPEG-12 / Implanted: Qty: 3 on 05/15/2020 by Gasper Shelton MD at [facility] Wrist NA / NA Screw 2.6kwk37zt Threaded Locking Peg Trimed Ref#Tpeg-18 - Sna S CREW Left: [employer] 05/15/2030 TPEG-18 / Implanted: Qty: 1 on 05/15/2020 by Gasper Shelton MD at [facility] Wrist NA / NA Screw [id number] Threaded Locking Peg Trimed Ref#Tpeg-20 - Sna S CREW Left: [employer] 05/15/2030 TPEG-20 / Implanted: Qty: 1 on 05/15/2020 by Gasper Shelton MD at [facility] Wrist NA / NA Screw Cortical 2.3mm X 16mm Trimed #Trx2.3-16 - S0 SCREW Left: [employer] 05/15/2020 TRX2.3-16 / Implanted: Qty: 2 on 05/15/2020 by Gasper Shelton MD at [facility] Wrist 0 / 0 Screw Cortical 2.3mm X 20mm Trimed #Trx2.3-20 - S0 SCREW Left: [employer] 05/15/2020 TRX2.3-20 / Implanted: Qty: 1 on 05/15/2020 by Gasper Shelton MD at [facility] Wrist 0 / 0 Screw Cortical 2.3mm X 12mm Trimed #Trx2.3-12 - Sna SCREW Left: [employer] 05/15/2030 TRX2.3-12 / Implanted: Qty: 1 on 05/15/2020 by Gasper Shelton MD at [facility] Wrist NA / NA Screw [id number] Threaded Locking Peg Trimed Ref#Tpeg-14 - Sna S CREW Left: [employer] 05/15/2030 TPEG-14 / Implanted: Qty: 2 on 05/15/2020 by Gasper Shelton MD at [facility] Wrist NA / NA Kwire 1.1mm Trimed Ref# Wire-1.1/100 - S0 Supply Left: [employer] 05/15/2020 WIRE-1.1/100 / Implanted: Qty: 6 on 05/15/2020 by Gasper Shelton MD at [facility] Item Wrist 0 / 0 documented as of this encounter Results Not on filedocumented in this encounter Visit Diagnoses Diagnosis Closed fracture of distal end of left ra dius, unspecified fracture morphology, initial encounter - Primary documented in this encounter Insurance Payer Benefit Plan Subscriber ID Effective Phone Address Typ e / Group Dates AETNA - AETNA [id number] 2019-Prese [address] Me dicare Adv MANAGED MEDICARE ADV [place] [id number] [place] [address] documented as of this encounter
--- OUTSIDE RECORDS SUMMARY | 2020-08-30 11:00 | XMS REPORT | Summary of Care ---
:1955 Author Organization [facility] Address [address] [place] [address] Care Team Providers Name Role Phone Roseanne Dahl Primary Care Provider Reason for Referral (RACHEL) Status Reason Specialty Diagnoses / Referred By Referred To Procedures Contact Contact New Request Plastic Surgery Diagnoses Closed fracture of distal end of left radius, unspecified fracture morphology, initial encounter Gasper Shelton, Procedures CONSULT/REFERRAL WOUND CARE [address] [place] [address] (Routine) Status Reason Specialty Diagnoses / Referred By Referred To Procedures Contact Contact New Request Occupational Diagnoses Closed fracture of distal end of left radius, unspecified fracture morphology, initial encounter Kathi, Therapy Procedures CONSULT/REFERRAL OCCUPATIONAL THERAPY MD Gasper [address] [place] [address] Reason for Visit Reason Comments Follow-up 2 wk post op Other (Routine) Status Reason Specialty Diagnoses / Referred By Referred To Procedures Contact Contact Authorized Orthopedic Surgery Diagnoses Closed fracture of distal end of left radius, unspecified fracture morphology, initial encounter Gasper Shelton, Gasper Shelton, Procedures Discharge Follow-up: Specialty Provider GASPER SHELTON; 2 Weeks MD PETERSON [address] [place] [address] Phone: Fax: Encounter Details Date Type Department Care Team Description 06/02/2020 Office Visit [facility] Gasper Shelton MD Closed fracture of Orthopaedic Surgery- [address] di stal end of left [place] [facility], unspecified Primary Care Candis Barnes [place], [place] fracture morphology, [address], [address] initial encounter [address] (Primary Dx) [place] [address] [phone] Allergies No Known Allergiesdocumented as of this [...] R directed 3 (three) INJECTION) times daily. 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 -Restrictions: EUGENIE Stanley MD Liz Ahn, ENFORCEMENT SAFETY OFFICER - 06/02/2020 3:50 PM CDTFollow up 2wk post op left wrist. 03/31. American documented in this encounter Plan of Treatment Date Type Specialty Care Team Description 06/11/2020 Office Visit Orthopedic Surgery Chandler Shelton MD [address] [id number] Health Maintenance Due Date Last Done Comments [...] of this encounter Implants Implanted Type Area Bellstand Attendant Device Shelf Model / Identifier Expiration Serial / Date Lot Cancellous Crushed, Community Tissue Ser vices (1 10mm) Freeze Dried 7.5 Cc #1233-12 - [id number] BONE Left: Community Tissue 025 1233-12 / Implanted: Qty: 1 on 05/15/2020 by Gasper Shelton MD at [facility] [id number] / NA Component Sfc Outer 28mm Trimed #Sfcoc. - Sna Insert Left: [employer] 05/15/2030 SFCOC. / Implanted: Qty: 1 on 05/15/2020 by Gasper Shelton MD at [facility] Wrist NA / NA Plate Pin 5h Trimed #Rcp5 - S0 PLATE Left: [employer] 05/15/2020 RCP5 / Implanted: Qty: 1 on 05/15/2020 by Gasper Shelton MD at [facility] Wrist 0 / 0 Plate Hook 4h Trimed #Whv-4 - Sna PLATE Left: [employer] 05/15/2030 WHV-4 / Implanted: Qty: 1 on 05/15/2020 by Gasper Shelton MD at [facility] Wrist NA / NA Plate Wire Form 3h Trimed #Wfp3 - Sna PLATE Left: [employer] 05/15/2030 WFP3 / Implanted: Qty: 1 on 05/15/2020 by Gasper Shelton MD at [facility] Wrist NA / NA Plate Peg Ulnar 5h Trimed #Upg-5 - Sna PLATE Left: [employer] 05/15/2030 UPG-5 / Implanted: Qty: 1 on 05/15/2020 by Gasper Shelton MD at [facility] Wrist NA / NA Peg 2.2pvd19cj Threaded Locking Trimed Ref#Tpeg-12 - Sna Peg L eft: [employer] 05/15/2030 TPEG-12 / Implanted: Qty: 3 on 05/15/2020 by Gasper Shelton MD at [facility] Wrist NA / NA Screw 2.7afv85xl Threaded Locking Peg Trimed Ref#Tpeg-18 - Sna S CREW Left: [employer] 05/15/2030 TPEG-18 / Implanted: Qty: 1 on 05/15/2020 by Gasper Shelton MD at [facility] Wrist NA / NA Screw 2.8yrg84kw Threaded Locking Peg Trimed Ref#Tpeg-20 - Sna S CREW Left: [employer] 05/15/2030 TPEG-20 / Implanted: Qty: 1 on 05/15/2020 by Gasper Shelton MD at [facility] Wrist NA / NA Screw Cortical 2.3mm X 16mm Trimed #Trx2.3-16 - S0 SCREW Left: [employer] 05/15/2020 TRX2.3-16 / Implanted: Qty: 2 on 05/15/2020 by Gasper Shelton MD at [facility] Wrist 0 / 0 Screw Cortical 2.3mm X 20mm Trimed #Trx2.3-20 - S0 SCREW Left: [employer] 05/15/2020 TRX2.3-20 / Implanted: Qty: 1 on 05/15/2020 by Gasper Shelton MD at [facility] Wrist 0 / 0 Screw Cortical 2.3mm X 12mm Trimed #Trx2.3-12 - Sna SCREW Left: [employer] 05/15/2030 TRX2.3-12 / Implanted: Qty: 1 on 05/15/2020 by Gasper Shelton MD at [facility] Wrist NA / NA Screw 2.2xin96sa Threaded Locking Peg Trimed Ref#Tpeg-14 - Sna S CREW Left: [employer] 05/15/2030 TPEG-14 / Implanted: Qty: 2 on 05/15/2020 by Gasper Shelton MD at [facility] Wrist NA / NA Kwire 1.1mm Trimed Ref# Wire-1.1/100 - S0 Supply Left: [employer] 05/15/2020 WIRE-1.1/100 / Implanted: Qty: 6 on 05/15/2020 by Gasper Shelton MD at [facility] Item Wrist 0 / 0 documented as of this encounter Results Not on filedocumented in this encounter Visit Diagnoses Diagnosis Closed fracture of distal end of left ra dius, unspecified fracture morphology, initial encounter - Primary documented in this encounter Insurance Payer Benefit Plan Subscriber ID Effective Phone Address Typ e / Group Dates AETNA - AETNA [id number] 2019-Prese [address] BOX Me dicare Adv MANAGED MEDICARE ADV nt [id number] [place] [address] documented as of this encounter
--- OUTSIDE RECORDS SUMMARY | 2020-08-30 11:01 | XMS REPORT | Summary of Care ---
:1955 Author Organization [facility] Address [address] [place] [id number] Care Team Providers Name Role Phone Roseanne Dahl Donato Primary Care Provider Reason for Visit Reason Comments Refill Request Encounter Details Date Type Department Care Team Description 06/03/2020 Refill [facility] Reymundo Stanley MD Refill Request 3RD FLOOR [facility] [address] [place] [address]. [place] [address] [place] [address] Allergies No Known Allergiesdocumented as of this encounter (statuses as of 06/03/2020) Medications Medication Sig Dispensed Refills Start Date [...] R directed 3 (three) INJECTION) times daily. Jlhad-8-OLK-EPA-Fis Take 1 capsule by 0 Active h [...] left radius, unspecified fracture morphology, initial encounter traMADoL 50 mg Take 1 tablet by 21 tablet 0 06/03/2020 020 Active tabletIndications: mouth every 6 (six) acute pain hours as needed for Pain (scale 4-6) for up to 7 days. Indications: acute pain documented as of this encounter (statuses as of 06/03/2020) Active Problems No known active problemsdocumented as of this encounter (statuses as of 06/03/2020) Social History Tobacco Use Types Packs/Day Years [...] of this encounter Last Filed Vital Signs Not on filedocumented in this encounter Plan of Treatment Date Type Specialty Care Team Description 06/11/2020 Ancillary Visit Occupational Therapy Jen Reyes MD [id number] [place] [address] [phone] Anand Hughes, OT [address] [place] [address] 06/11/2020 Office Visit Orthopedic Surgery Chandler Armenta MD [address] [place], [place] [address] Health Maintenance Due Date Last Done Comments [...] of this encounter Implants Implanted Type Area Safety And Security Manager Device Shelf Model / Identifier Expiration Serial / Date Lot Cancellous Crushed, Community [employer] Ser vices (1 10mm) Freeze Dried 7.5 Cc #1233-12 - [id number] BONE Left: Community [employer] 025 1233-12 / Implanted: Qty: 1 on 05/15/2020 by Jose Armenta MD at [facility] [id number] / NA Component Sfc Outer 28mm Trimed #Sfcoc. - Sna Insert Left: [employer] 05/15/2030 SFCOC. / Implanted: Qty: 1 on 05/15/2020 by Jose Armenta MD at [facility] Wrist NA / NA Plate Pin 5h Trimed #Rcp5 - S0 PLATE Left: [employer] 05/15/2020 RCP5 / Implanted: Qty: 1 on 05/15/2020 by Jose Armenta MD at [facility] Wrist 0 / 0 Plate Hook 4h Trimed #Whv-4 - Sna PLATE Left: [employer] 05/15/2030 WHV-4 / Implanted: Qty: 1 on 05/15/2020 by Jose Armenta MD at [facility] Wrist NA / NA Plate Wire Form 3h Trimed #Wfp3 - Sna PLATE Left: [employer] 05/15/2030 WFP3 / Implanted: Qty: 1 on 05/15/2020 by Jose Armenta MD at [facility] Wrist NA / NA Plate Peg Ulnar 5h Trimed #Upg-5 - Sna PLATE Left: [employer] 05/15/2030 UPG-5 / Implanted: Qty: 1 on 05/15/2020 by Jose Armenta MD at [facility] Wrist NA / NA Peg [id number] Threaded Locking Trimed Ref#Tpeg-12 - Sna Peg L eft: [employer] 05/15/2030 TPEG-12 / Implanted: Qty: 3 on 05/15/2020 by Jose Armenta MD at [facility] Wrist NA / NA Screw 2.9reg96gg Threaded Locking Peg Trimed Ref#Tpeg-18 - Sna S CREW Left: [employer] 05/15/2030 TPEG-18 / Implanted: Qty: 1 on 05/15/2020 by Jose Armenta MD at [facility] Wrist NA / NA Screw 2.6gko12pr Threaded Locking Peg Trimed Ref#Tpeg-20 - Sna S CREW Left: [employer] 05/15/2030 TPEG-20 / Implanted: Qty: 1 on 05/15/2020 by Jose Armenta MD at [facility] Wrist NA / NA Screw Cortical 2.3mm X 16mm Trimed #Trx2.3-16 - S0 SCREW Left: [employer] 05/15/2020 TRX2.3-16 / Implanted: Qty: 2 on 05/15/2020 by Jose Armenta MD at [facility] Wrist 0 / 0 Screw Cortical 2.3mm X 20mm Trimed #Trx2.3-20 - S0 SCREW Left: [employer] 05/15/2020 TRX2.3-20 / Implanted: Qty: 1 on 05/15/2020 by Jose Armenta MD at [facility] Wrist 0 / 0 Screw Cortical 2.3mm X 12mm Trimed #Trx2.3-12 - Sna SCREW Left: [employer] 05/15/2030 TRX2.3-12 / Implanted: Qty: 1 on 05/15/2020 by Jose Armenta MD at [facility] Wrist NA / NA Screw 2.7dej03vc Threaded Locking Peg Trimed Ref#Tpeg-14 - Sna S CREW Left: [employer] 05/15/2030 TPEG-14 / Implanted: Qty: 2 on 05/15/2020 by Jose Armenta MD at [facility] Wrist NA / NA Kwire 1.1mm Trimed Ref# Wire-1.1/100 - S0 Supply Left: [employer] 05/15/2020 WIRE-1.1/100 / Implanted: Qty: 6 on 05/15/2020 by Jose Armenta MD at [facility] Item Wrist 0 / 0 documented as of this encounter Results Not on filedocumented in this encounter Visit Diagnoses Diagnosis Closed fracture of distal end of left ra dius, unspecified fracture morphology, initial encounter - Primary documented in this encounter Insurance Payer Benefit Plan Subscriber ID Effective Phone Address Typ e / Group Dates [employer]ETNA - AETNA [id number] 2019-Prese [address] Me dicare Adv MANAGED MEDICARE ADV [place] [id number] [place] [address] documented as of this encounter
--- OUTSIDE RECORDS SUMMARY | 2020-08-30 11:01 | XMS REPORT ---
:1955 Author Organization [facility] Address [address] 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 Problem Insomnia, unspecified G47.00 Active 399995001 type Problem Congestive heart I50.9 Active 22366372 failure, unspecified HF chronicity, unspecified heart failure type Problem Type 2 diabetes E11.9 Active 181183067 mellitus without complications Problem 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 Problem Unspecified visual H54.7 Active 414251200 loss Problem Falls frequently R29.6 Active 897892018 Problem Type 2 diabetes E11.39 Active 64923686891512 mellitus with other diabetic ophthalmic complication Problem Abdominal pain, R10.9 Active 97707849 unspecified abdominal location Problem Psychophysiological F51.04 Active 419564611 insomnia Problem Diarrhea, unspecified R19.7 Active 57203528 type Problem Type 2 diabetes E11.65 Active 398087266710165 mellitus with hyperglycemia Problem Constipation, K59.00 Active 81294421 unspecified constipation type Problem Closed fracture of S62.102S Active 985481997 left wrist, sequela Problem Hyperlipidemia, E78.5 Active 22430773 unspecified hyperlipidemia type Problem Status post fall Z91.81 Active 345480629 Problem Hypothyroidism, E03.9 Active 79507268 unspecified type Problem Insomnia due to G47.01 Active 014983361 medical condition Problem Tremor of both hands R25.1 Active 230764062 Problem Multiple falls R29.6 Active 471171011 Problem 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 Active 413483460 eyes Problem Closed fracture of S52.92XS Active 61552249 left forearm, sequela ALLERGIES No Known Allergies ENCOUNTERS from 1955 to 2020-06-06 Encounter Location Date Provider Diagnosis Keira Sanchez [address] May, 2020 Roseanne hernandez (primary) [address] [facility] [address] hypertension I1 0 ; [facility] [place] [id number] left wrist, seq uela S62.102S ; Clos ed fracture of lef t forearm, sequel a S52.92XS ; Stat us post fall Z91.81 ; Congestive hear t failure, unspec ified HF chronicity, unspecified hea rt failure type I5 0.9 ; Type 2 diabetes mellitus with hyperglycemia E 11.65 ; Type 2 diabetes mellitus with d iabetic nephropathy E11 .21 ; watermaster curre nt use of insulin Z79. 4 ; Hyperlipidemia, unspecified hyperlipidemia type E78.5 ; Hypothyroidism, unspecified typ e E03.9 ; Obstructive s leep apnea G47.33 ; Tremor of both hands R 25.1 ; Multiple falls R29.6 ; Blindness of cara th eyes H54.3 ; Insomni a, unspecified typ e G47.00 and Depr ession with anxiety F4 1.8 IMMUNIZATIONS Vaccine Route Administration Date Status FLUZONE HIGH DOSE OVER 65 IM Intramuscular Jul 27, 2019 Admin istered SOCIAL HISTORY Tobacco Use: Social History Observation Description Date Details (start date - stop date) Never Smoker Sex Assigned At : Social History Observation Description Sex Assigned At Unknown PHQ9 Question Answer Notes Little interest or pleasure in doing things More than half t he days Feeling down, depressed, or hopeless More than half the days Trouble falling or staying asleep or sleeping too Nearly mariya ry day much Feeling tired or having little energy More than half the day s Poor appetite or overeating More than half the days Feeling bad about yourself, or that you are a More than half the days failure, or have let yourself or your family down Trouble concentrating on things, such as reading Not at all the newspaper or watching television Moving or speaking so slowly that other people More than javier f the days could have noticed; or the opposite, being so fidgety or restless that you have been moving around a lot more than usual Total Score 15 Interpretation Moderately severe depression Thoughts that you would be better off or of Not at all hurting yourself in some way Alcohol Screen Question Answer Notes Did you have a drink containing alcohol in the past year? No Points 0 Interpretation Negative Tobacco Use/Smoking Question Answer Notes Are you a never smoker REASON FOR REFERRAL No Information VITAL SIGNS Height 62 in May, Weight 219 lbs May, Temperature 97.9 degrees Fahrenheit May, BMI 40.05 kg/m2 May, Oximetry 94 % May, Respiratory Rate 18 /min May, Blood pressure systolic 134 mm Hg May, Blood pressure diastolic 79 mm Hg May, MEDICATIONS Medication SIG (Take, Route, Start Date End Date Status Frequency, Duration) Atorvastatin Calcium 40 1 tablet in evening Active MG Orally Once a day for 90 days Metoprolol Succinate ER 1 tablet Orally Once a Active 50 MG day for 90 days Jardiance 25 MG 1 tablet Orally Once a Feb, Ac tive day for 90 days Insulin NPH (Human) as directed Subcutaneous Active (Isophane) 100 UNIT/ML as directed Novolin N 100 UNIT/ML as directed Subcutaneous Active 68 units once daily for 90 days Levothyroxine Sodium 75 1 tablet on an empty Active MCG stomach in the morning Orally Once a day for 90 days Lisinopril 40 MG 1 tablet Orally Once a A ctive day for 90 days Novolin R 100 UNIT/ML as directed subcutaneous Active 22 units once daily with a meal; may use up to TID qac for 90 days Trazodone HCl 100 mg 1 tablet at bedtime as Active needed for sleep Orally Once a day for 90 days Liothyronine Sodium 25 1 tablet on an empty Active MCG stomach Orally Once a day for 90 days Zofran 4 MG 1 tablet Orally twice a 30 Jan, 2020 Acti ve day prn for 10 days Insulin Regular Human as directed Subcutaneous Active (Conc) 500 UNIT/ML as directed Citalopram Hydrobromide 1 tablet Orally Once a Active 40 MG day for 90 days Methocarbamol 750 MG Oral for 30 Not-Theron ing Insulin Syringe 31G X as directed subcutaneous Jul, Active 01/04" 1 ML Use with Insulin N & Insulin R for 90 days Levemir FlexTouch 100 70 units Subcutaneous Not-Taking UNIT/ML daily for 90 days Furosemide 20 MG 1 tablet Oral Once a day Active for 90 days BusPIRone HCl 5 MG 1 tablet Orally Twice Active daily for 90 days Belsomra 10 MG 1 tablet at bedtime as May, Unk nown needed Orally Once a day for 30 days PROCEDURES No Information RESULTS Component Value Reference Range HEMOGLOBIN A1C Reviewed date:06/06/2020 01:22:35 Interpretation: Performing Lab: A1C 6.7% REASON FOR VISIT 3 month f/u; (#[phone]) MEDICAL (GENERAL) HISTORY Type Description Date Medical History Hyperlipidemia, unspecified hyperlipidem ia type Medical History Congestive heart failure, unspecified HF chronicity, unspecified heart failure type Medical History Depression with anxiety Medical History Essential (primary) hypertension Medical History watermaster current use of insulin Medical History Type 2 diabetes mellitus without complic ations Medical History Hypothyroidism, unspecified type Surgical History heart surgery-3 clogged arteries 2010 Surgical History tubal ligation 1980 Surgical History breast biopsy 1995 Surgical History Sx. to repair fx. of left wrist/left arm 05/15/2020 Goals Section No Information Health Concerns No Information MEDICAL EQUIPMENT No Information MENTAL STATUS No Information FUNCTIONAL STATUS No Information ASSESSMENTS Encounter Date Diagnosis Notes May, Hypothyroidism, unspecified type (ICD-10 - E03.9) May, Hyperlipidemia, unspecified hyperlipidem ia type (ICD-10 - E78.5) May, Essential (primary) hypertension (ICD-10 - I10) May, Tremor of both hands (ICD-10 - R25.1) May, Obstructive sleep apnea (ICD-10 - G47.33 ) May, Type 2 diabetes mellitus with hyperglyce [place] (ICD-10 - E11.65) May, Congestive heart failure, unspecified HF chronicity, unspecified heart failure type (ICD-10 - I50.9) May, Depression with anxiety (ICD-10 - F41.8) May, care home current use of insulin (ICD-10 - Z79.4) May, Type 2 diabetes mellitus with diabetic n ephropathy (ICD-10 - E11.21) May, Closed fracture of left forearm, sequela (ICD-10 - S52.92XS) May, Blindness of both eyes (ICD-10 - H54.3) May, Closed fracture of left wrist, sequela ( ICD-10 - S62.102S) May, Multiple falls (ICD-10 - R29.6) May, Status post fall (ICD-10 - Z91.81) May, Insomnia, unspecified type (ICD-10 - G47 .00) PLAN OF TREATMENT Medication Medication Name Sig Start Date Stop Date Liothyronine Sodium 25 MCG 1 tablet on an empty stomach Orally Once a day for 90 days Furosemide 20 MG 1 tablet Oral Once a day for 90 days Trazodone HCl 100 mg 1 tablet at bedtime as needed for sleep Orally Once a day for 90 days Jardiance 25 MG 1 tablet Orally Once a day for 9 Feb, 2021 90 days Novolin R 100 UNIT/ML as directed subcutaneous 22 units once daily with a meal; may use up to TID qac for 90 days Lisinopril 40 MG 1 tablet Orally Once a day for 90 days Novolin N 100 UNIT/ML as directed Subcutaneous 68 units once daily for 90 days Atorvastatin Calcium 40 MG 1 tablet in evening Orally Once a day for 90 days Citalopram Hydrobromide 40 MG 1 tablet Orally Once a day for 90 days Levothyroxine Sodium 75 MCG 1 tablet on an empty stomach in the morning Orally Once a day for 90 days Metoprolol Succinate ER 50 MG 1 tablet Orally Once a day for 90 days BusPIRone HCl 5 MG 1 tablet Orally Twice daily for 90 days Treatment Notes Assessment Notes Clinical Notes Closed fracture of left wrist, F/u with ortho. Dr. Armenta in [facility] per current schedule; appt. this afternoon on 03:50 pm Closed fracture of left forearm, Aware; as listed above sequela Status post fall Aware Congestive heart failure, unspecified Discuss f/u with [facility] at HF chronicity, unspecified heart her next visit failure type Type 2 diabetes mellitus with BS was 157 this am at home hyperglycemia Type 2 diabetes mellitus with Aware diabetic nephropathy care home current use of insulin Increase Novolin N from 65U QD to 68U QD + increase Novolin R from 20U QAC to 22U QAC Hyperlipidemia, unspecified Low fat/low cholesterol diet hyperlipidemia type Obstructive sleep apnea Aware Tremor of both hands Aware Blindness of both eyes Aware Multiple falls H/o. Treatment Notes Test Name Order Date Lipid Panel w/ Chol/HDL Ratio 2020-06-06 Microalbumin, Random Urine 2020-06-06 Hemoglobin A1c 2020-06-06 Magnesium, Serum 2020-06-06 Comp. Metabolic Panel (14) (CMP) 2020-06-06 TSH 2020-06-06 T4F+T3Free 2020-06-06 Next Appt Details F/u in 3 months; as well as f/u prn. [place] son: Provider Name:Roseanne Nabila, 6 08:45:00 AM, [address], [address], [place], [address], Provider Name:Roseanne Dahl, 2020-08-22 3 01:40:00 PM, [address], [address], [place], [address], Insurance Providers Payer Name Payer Payer Insured Patient Coverage Coverage End Address Phone Name Relationship to Start Date Dante e Insured A[employer] [phone] Indira Chavis self MEDICARE [id number] [facility] [id number]
--- OUTSIDE RECORDS SUMMARY | 2020-08-30 11:01 | XMS REPORT | Summary of Care ---
:1955 Author Organization [facility] Address [address] [place] [address] Care Team Providers Name Role Phone Roseanne Dahl Primary Care Provider Reason for Visit Reason Comments Evaluation (Routine) Status Reason Specialty Diagnoses / Referred By Referred To Procedures Contact Contact Authorized Occupational Diagnoses Closed fracture of distal end of left radius, unspecified fracture morphology, initial encounter Jose Armenta, Therapy Procedures CONSULT/REFERRAL OCCUPATIONAL THERAPY DC OCCUPATIONAL THERAPY EVAL LOW COMPLEX 30 MINS DC OCCUPATIONAL THERAPY EVAL MOD COMPLEX 45 MINS DC OCCUPATIONAL THERAPY EVAL HIGH COMPLEX 60 MINS DC THERAPEUTIC EXERCISES DC NEUROMUSC REE DUCAT,1+ AREAS, EA 15 MIN DC MANUAL THER TECH,1+REGIONS,EA 15 MIN DC THERAPEUT ACTVITY DIRECT PT CONTACT EACH 15 MIN DC SELF-CARE/HOME MGMT TRAINING EACH 15 MINUTES [address] [place] [address] Encounter Details Date Type Department Care Team Description 06/02/2020 Ancillary Visit [facility] Physical Jen Reyes MD [address] [facility] [id number] [place], [place] [address] 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 Dykid-5-XQM-EPA-Fis Take 1 capsule by 0 Active h [...] Signs Not on filedocumented in this encounter Progress Notes Lucy Ball, OT - 06/02/2020 8:15 AM CDT Initial Evaluation Date: June 03, 2020 Diagnosis: 1. 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 Pain, wrist, left 3. Decreased activities of daily living (ADL) Visit Number: 1 Date of onset: Patient fell April 27, 2020 with surgery performed May 15, 2020 History of Condition: Patient reports she was walking across the grass in her yard to get to the carwhen she stumbled backwards landing on her wrist. Knowledge of condition: Good Quality of life: Poor Prior therapy: No Patient Goals: Goals None Past Medical History: Diagnosis Date Blindness of both eyes CAD (coronary artery disease) DM (diabetes mellitus) with complications HTN (hypertension) Past Surgical History: Procedure Laterality Date APPLICATION SPLINT UPPER EXTREMITY (SHX) Left 05/15/2020 Surgeon: Jose Armenta MD; [facility] CABG, ARTERIAL, TWO DISTAL RADIUS ORIF Left 05/15/2020 Surgeon: Jose Armenta MD; Location[facility] OPEN CARPAL TUNNEL RELEASE Left 05/15/2020 Surgeon: Jose Armenta MD; Location[facility] Pain assessment: Pain Assessment Pain Assessment: 0-10 Pain Score: 8 Post-Treatment Pain Score: 8 Pain Location: Wrist Pain Orientation: Left Pain Descriptors: Aching General Comments: Patient presented with guarding of LUE Objective: Outpatient OT Evaluation Row Name 06/03/20 0700 General Visit Number 1 Chart Reviewed Yes Family/Caregiver Present Yes General Comments daughter and caregiver present Precautions Precautions NWB LUE Pain Assessment Pain Assessment 0-10 Pain Score 8 Post-Treatment Pain Score 8 Pain Location Wrist Pain Orientation Left Pain Descriptors Aching General Comments Patient presented with guarding of LUE Home Living Type of Home House Lives With Daughter Home Adaptive Equipment Wheelchair-manual Prior Function Level of [place] Needs assistance with ADLs;Needs assistance with homemaking 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 Orthotic training Range of Motion General Assessments: Measurements deferred at this time secondary to walk in status. Treatment: See Outpatient OT Treatment Flowsheet HEP AROM wrist exercises x 10 repetitions Assessment: Patient is a 65 year old female presenting in clinic in w/c with daughter and caregiver present s/p left distal radius and ulna ORIF on 05/15/2020 with left arm in sling. Patient is NWB in LUE at this time according to physicians notes. Patient presented with swelling and blistering of left hand. Patient presented with guarding of left wrist and arm throughout therapy session with therapist. Patient was fit with custom orthotic of volar wrist and educated on orthotic wear/care schedule. Patient verbalized comfort with fit. Patient presented with deficits in left wrist AROM on this date.Patient was educated and returned demonstration on HEP AROM wrist exercises. Patient required verbaland tactile cueing and teaching of AROM exercises for proper technique as patient is blind. Patient would benefit from skilled occupational therapy focusing on increasing left wrist AROM to increase functional independence in ADLs. Rehab potential: good Facilitators to goal achievement: Good family support and Previous Functional Ability Barriers to goal achievement: Medical complexity Short Term Goals: To be met in 6-8 visits: 1. Patient will gain 5 - 10 degrees active left flexion motion in order to assist with self care. 2. Patient will demonstrate independence in the following home programs: ROM exercises. Bilingual Student Tutor Goals: To be met in 10 visits: 1. Patient will demonstrate improved left UE functional use as evidenced by ability to complete BADL Plan of Care Patient agrees with the plan of care Patient to be seen 1-2 times per week for 10 visits Modalities Patient/Caregiver education Daily living activities Therapeutic exercises Frequency: 1-2x/week Duration: 10 visits I have discussed the risks and benefits of the above plan with Indira Chavis. She is aware of the diagnosis and potential to improve. She participated in the setting of the goals and understands the importance of complying with the treatment plan, including home instruction. She agreed to the above frequency and duration of rehab services. Patient- Family Teaching: Patient and Family member provided with preferred teaching of verbal information and written information on orthotic training and HEP AROM wrist exercises. Shows readiness tolearn. Verbal instruction and Written material teaching provided. Individual is unable to read and verbalizes understanding of teaching provided and needs reinforcement of teaching. ROSALINE Malin, MOT Pager: [phone] License: [id number] documented in this encounter Miscellaneous Notes Addendum Note - Lucy Ball OT - 06/02/2020 8:15 AM CDT Addended by: LUCY BALL OT on: 06/03/2020 04:09 PM Modules accepted: Orders documented in this encounter Plan of Treatment Date Type Specialty Care Team Description 06/11/2020 Ancillary Visit Occupational Therapy Jen Reyes MD [address] [facility] [id number] [place], [place] [id number] Anand Hughes OT [address] [place] [address] 06/11/2020 Office Visit Orthopedic Surgery Chandler Armenta MD [address] [place] [address] [phone] Health Maintenance Due Date Last Done Comments [...] of this encounter Implants Implanted Type Area Flight Radio Officer Device Shelf Model / Identifier Expiration Serial / Date Lot Cancellous Crushed, Community Tissue Ser vices (1 10mm) Freeze Dried 7.5 Cc #1233-12 - [id number] BONE Left: Community Tissue 025 1233-12 / Implanted: Qty: 1 on 05/15/2020 by Jose Armenta MD at [facility] [employer] [employer] [id number] / NA Component Sfc Outer 28mm Trimed #Sfcoc.28 - Sna Insert Left: [employer] 05/15/2030 SFCOC.28 / Implanted: Qty: 1 on 05/15/2020 by Jose Armenta MD at [facility] [address] Wrist NA / NA Plate Pin 5h Trimed #Rcp5 - S0 PLATE Left: [employer] 05/15/2020 RCP5 / Implanted: Qty: 1 on 05/15/2020 by Jose Armenta MD at [facility] [address] Wrist 0 / 0 Plate Hook 4h Trimed #Whv-4 - Sna PLATE Left: [employer] 05/15/2030 WHV-4 / Implanted: Qty: 1 on 05/15/2020 by Jose Armenta MD at [facility] [address] Wrist NA / NA Plate Wire Form 3h Trimed #Wfp3 - Sna PLATE Left: [employer] 05/15/2030 WFP3 / Implanted: Qty: 1 on 05/15/2020 by Jose Armenta MD at [facility] [address] Wrist NA / NA Plate Peg Ulnar 5h Trimed #Upg-5 - Sna PLATE Left: [employer] 05/15/2030 UPG-5 / Implanted: Qty: 1 on 05/15/2020 by Jose Armenta MD at [facility] Wrist NA / NA Peg 2.3iuj37iw Threaded Locking Trimed Ref#Tpeg-12 - Sna Peg L eft: [employer] 05/15/2030 TPEG-12 / Implanted: Qty: 3 on 05/15/2020 by Jose Armenta MD at [facility] [address] Wrist NA / NA Screw 2.2kwt85xe Threaded Locking Peg Trimed Ref#Tpeg-18 - Sna S CREW Left: [employer] 05/15/2030 TPEG-18 / Implanted: Qty: 1 on 05/15/2020 by Jose Armenta MD at [facility] Wrist NA / NA Screw 2.8evo60gc Threaded Locking Peg Trimed Ref#Tpeg-20 - Sna S CREW Left: [employer] 05/15/2030 TPEG-20 / Implanted: Qty: 1 on 05/15/2020 by Jose Armenta MD at [facility] Wrist NA / NA Screw Cortical 2.3mm X 16mm Trimed #Trx2.3-16 - S0 SCREW Left: [employer] 05/15/2020 TRX2.3-16 / Implanted: Qty: 2 on 05/15/2020 by Jose Armenta MD at [facility] Wrist 0 / 0 Screw Cortical 2.3mm X 20mm Trimed #Trx2.3-20 - S0 SCREW Left: [employer] 05/15/2020 TRX2.3-20 / Implanted: Qty: 1 on 05/15/2020 by Jose Armenta MD at [facility] Wrist 0 / 0 Screw Cortical 2.3mm X 12mm Trimed #Trx2.3-12 - Sna SCREW Left: [employer] 05/15/2030 TRX2.3-12 / Implanted: Qty: 1 on 05/15/2020 by Jose Armenta MD at [facility] [address] Wrist NA / NA Screw 2.1pev88bn Threaded Locking Peg Trimed Ref#Tpeg-14 - Sna S CREW Left: [employer] 05/15/2030 TPEG-14 / Implanted: Qty: 2 on 05/15/2020 by Jose Armenta MD at [facility] Wrist NA / NA Kwire 1.1mm Trimed Ref# Wire-. - S0 Supply Left: [employer] 05/15/2020 WIRE-. 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
--- OUTSIDE RECORDS SUMMARY | 2020-08-30 11:01 | XMS REPORT | Summary of Care ---
:1955 Author Organization [facility] Address [address] [place] [address] Care Team Providers Name Role Phone Roseanne Dahl Primary Care Provider Reason for Visit Reason Comments Evaluation (Routine) Status Reason Specialty Diagnoses / Referred By Referred To Procedures Contact Contact Authorized Occupational Diagnoses Closed fracture of distal end of left radius, unspecified fracture morphology, initial encounter Jose Armenta, Therapy Procedures CONSULT/REFERRAL OCCUPATIONAL THERAPY FL OCCUPATIONAL THERAPY EVAL LOW COMPLEX 30 MINS FL OCCUPATIONAL THERAPY EVAL MOD COMPLEX 45 MINS FL OCCUPATIONAL THERAPY EVAL HIGH COMPLEX 60 MINS FL THERAPEUTIC EXERCISES FL NEUROMUSC REE DUCAT,1+ AREAS, EA 15 MIN FL MANUAL THER TECH,1+REGIONS,EA 15 MIN FL THERAPEUT ACTVITY DIRECT PT CONTACT EACH 15 MIN FL SELF-CARE/HOME MGMT TRAINING EACH 15 MINUTES [address] [place] [address] Encounter Details Date Type Department Care Team Description 06/02/2020 Ancillary Visit [facility] Physical Jen Reyes MD [address] [facility] [id number] [place], [place] [address] 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 Manager Sales Training Goals: To be met in 10 visits: [...] teaching provided and needs reinforcement of teaching. Roger Ball OTR, MOT Pager: [phone] License: [id number] documented in this encounter Plan of Treatment Date Type Specialty Care Team Description 06/11/2020 Ancillary Visit Occupational Therapy Jen Reyes MD [address] [facility] [id number] [place] [address] [id number] Anand Hughes OT [address] [place] [address] 06/11/2020 Office Visit [place] [address] [place] [address] Health Maintenance Due Date Last Done Comments [...] of this encounter Implants Implanted Type Area Probation Manager Device Shelf Model / Identifier Expiration Serial / Date Lot Cancellous Crushed, [facility] Tissue Ser vices (1 10mm) Freeze Dried 7.5 Cc #1233-12 - [id number] BONE Left: Community Tissue 025 1233-12 / Implanted: Qty: 1 on 05/15/2020 by Jose Armenta MD at [facility] [employer] [id number] / NA Component Sfc Outer 28mm Trimed #Sfcoc.28 - Sna Insert Left: [employer] 05/15/2030 SFCOC.28 / Implanted: Qty: 1 on 05/15/2020 by Jose Armenta MD at [facility] Wrist NA / NA Plate Pin 5h Trimed #Rcp5 - S0 PLATE Left: [employer] 05/15/2020 RCP5 / Implanted: Qty: 1 on 05/15/2020 by Jose Armenta MD at [facility] Wrist 0 / 0 Plate Hook 4h Trimed #Whv-4 - Sna PLATE Left: [employer] 05/15/2030 WHV-4 / Implanted: Qty: 1 on 05/15/2020 by Jose Armenta MD at [facility] Wrist NA / NA Plate Wire Form 3h Trimed #Wfp3 - Sna PLATE Left: [employer] 05/15/2030 WFP3 / Implanted: Qty: 1 on 05/15/2020 by Jose Armenta MD at [facility] Wrist NA / NA Plate Peg Ulnar 5h Trimed #Upg-5 - Sna PLATE Left: [employer] 05/15/2030 UPG-5 / Implanted: Qty: 1 on 05/15/2020 by Jose Armenta MD at [facility] Wrist NA / NA Peg 2.0dmx09pv Threaded Locking Trimed Ref#Tpeg-12 - Sna Peg L eft: [employer] 05/15/2030 TPEG-12 / Implanted: Qty: 3 on 05/15/2020 by Jose Armenta MD at [facility] Wrist NA / NA Screw 2.2jjz99ec Threaded Locking Peg Trimed Ref#Tpeg-18 - Sna S CREW Left: [employer] 05/15/2030 TPEG-18 / Implanted: Qty: 1 on 05/15/2020 by Jose Armenta MD at [facility] Wrist NA / NA Screw 2.6uxt58st Threaded Locking Peg Trimed Ref#Tpeg-20 - Sna S CREW Left: [employer] 05/15/2030 TPEG-20 / Implanted: Qty: 1 on 05/15/2020 by Jose Armenta MD at [facility] Wrist NA / NA Screw Cortical 2.3mm X 16mm Trimed #Trx2.3-16 - S0 SCREW Left: [employer] 05/15/2020 TRX2.3-16 / Implanted: Qty: 2 on 05/15/2020 by Jose Armenta MD at [facility] Wrist 0 / 0 Screw Cortical 2.3mm X 20mm Trimed #Trx2.3-20 - S0 SCREW Left: [employer] 05/15/2020 TRX2.3-20 / Implanted: Qty: 1 on 05/15/2020 by Jose Armenta MD at [facility] Wrist 0 / 0 Screw Cortical 2.3mm X 12mm Trimed #Trx2.3-12 - Sna SCREW Left: [employer] 05/15/2030 TRX2.3-12 / Implanted: Qty: 1 on 05/15/2020 by Jose Armenta MD at [facility] Wrist NA / NA Screw 2.8jzk56nm Threaded Locking Peg Trimed Ref#Tpeg-14 - Sna S CREW Left: [employer] 05/15/2030 TPEG-14 / Implanted: Qty: 2 on 05/15/2020 by Jose Armenta MD at [facility] Wrist NA / NA Kwire 1.1mm Trimed Ref# Wire-1.1/100 - S0 Supply Left: [employer] 05/15/2020 WIRE-1.1/100 / Implanted: Qty: 6 on 05/15/2020 by Jose Armenta MD at [facility] Item Wrist 0 / 0 documented as of this encounter Results Not on filedocumented in this encounter Visit Diagnoses Diagnosis Limitation of joint motion of left wrist - Primary Pain, wrist, left Decreased activities of daily living (AD L) documented in this encounter Insurance Payer Benefit Plan Subscriber ID Effective Phone Address Typ e / Group Dates AETNA - AETNA [id number] 2019-Prese [address] Me dicare Adv MANAGED MEDICARE ADV nt [id number] [place] [address] documented as of this encounter
--- OUTSIDE RECORDS SUMMARY | 2020-08-30 11:02 | XMS REPORT | Summary of Care ---
:1955 Author Organization [facility] Address [address] [place] [address] Care Team Providers Name Role Phone Roseanne Dahl Primary Care Provider Reason for Visit Reason Comments Follow-up (Routine) Status Reason Specialty Diagnoses / Referred By Referred To Procedures Contact Contact Authorized Occupational Diagnoses Closed fracture of distal end of left radius, unspecified fracture morphology, initial encounter Jose Armenta, Therapy Procedures CONSULT/REFERRAL OCCUPATIONAL THERAPY OR OCCUPATIONAL THERAPY EVAL LOW COMPLEX 30 MINS OR OCCUPATIONAL THERAPY EVAL MOD COMPLEX 45 MINS OR OCCUPATIONAL THERAPY EVAL HIGH COMPLEX 60 MINS OR THERAPEUTIC EXERCISES OR NEUROMUSC REE DUCAT,1+ AREAS, EA 15 MIN OR MANUAL THER TECH,1+REGIONS,EA 15 MIN OR THERAPEUT ACTVITY DIRECT PT CONTACT EACH 15 MIN OR SELF-CARE/HOME MGMT TRAINING EACH 15 MINUTES [address] [place] [address] Encounter Details Date Type Department Care Team Description 06/11/2020 Ancillary Visit [facility] Filemon Link MD [address] [facility] [id number] [place], [place] [id number] Decreased range of motion of left wrist (Primary Dx); Cassandra & Anand Hughes, OT [address] [place] [address] Limitation of joint motion of left hand; [facility] Decreased activities of daily living (ADL); [place] Left wrist pain [address] [place] [address] Allergies No Known Allergiesdocumented as of this encounter (statuses as of 06/11/2020) Medications Medication Sig Dispensed Refills Start End Date Status Date acetaminophen-cod TAKE 2 TABLETS BY 0 Active eine 300-30 mg MOUTH EVERY 6 0 tablet HOURS NEEDED FOR PAIN atorvastatin 40 TAKE 1 TABLET BY 0 Active mg tablet MOUTH ONCE DAILY 0 IN THE EVENING FOR 90 DAYS busPIRone 5 mg TAKE 1 TABLET BY 0 Active tablet MOUTH TWICE DAILY 0 FOR 90 DAYS citalopram 40 mg TAKE 1 TABLET BY 0 Active tablet MOUTH ONCE DAILY 0 FOR 90 DAYS JARDIANCE 25 mg 0 Acti ve Tab 0 furosemide 20 mg TAKE 1 TABLET BY 0 Active tablet MOUTH ONCE DAILY 0 FOR 90 DAYS traZODone 100 mg 0 Act maria g tablet 0 ondansetron 4 mg TAKE 1 TABLET BY 0 Active tablet MOUTH EVERY 12 0 HOURS NEEDED metoprolol 0 Active succinate XL 50 0 mg 24 hr tablet meloxicam 7.5 mg TAKE 1 TABLET BY 0 Active tablet MOUTH ONCE DAILY 0 WITH FOOD lisinopriL 40 mg TAKE 1 TABLET BY 0 Active tablet MOUTH ONCE DAILY 0 FOR 90 DAYS levothyroxine 88 0 Act maria g mcg tablet 0 levothyroxine 75 0 Act maria g mcg tablet 0 NOVOLIN N NPH INJECT 65 UNITS 0 Active U-100 INSULIN 100 SUBCUTANEOUSLY 0 unit/mL injection ONCE DAILY DIRECTED FOR 90 DAYS insulin NPH human inject 65 Units 0 Active isophane (NOVOLIN under the skin N SC) daily. insulin regular, Inject 20 Units as 0 Active human (NOVOLIN R directed 3 (three) INJECTION) times daily. Wtfvt-6-BJW-EPA-F Take 1 capsule by 0 Active satnam Oil (FISH mouth daily. OIL) 1,000 mg (120 mg-180 mg) Cap aspirin 81 mg EC Take 81 mg by 0 Active tablet mouth daily. traMADoL 50 mg Take 50 mg by 0 06/11/20 D iscontinued tablet mouth every 8 0 20 (Reord er) (eight) hours as needed. documented as of this encounter (statuses as of 06/11/2020) Active Problems Problem Noted Date Decreased range of motion of left wrist 06/11/2020 Limitation of joint motion of left hand 06/11/2020 Decreased activities of daily living (ADL) 06/11/2020 Left wrist pain 06/11/2020 documented as of this encounter (statuses as of 06/11/2020) Social History Tobacco Use Types Packs/Day Years Used Date Never Smoker Smokeless Tobacco: Never Used Sex Assigned at Date Recorded Not on file COVID-19 Exposure Response Date Recorded In the last month, have you been in contact with No / Unsure 06/11/2020 10:50 AM CDT someone who was confirmed or suspected to have Coronavirus / COVID-19? documented as of this encounter Last Filed Vital Signs Not on filedocumented in this encounter Progress Notes Anand Hughes, OT - 06/11/2020 8:45 AM CDT Occupational Therapy Treatment Date: June 11, 2020 Subjective: Pt has MD appointment after this session at [address] Armenta and wound care appointment/consultation at 1330. Pain Assessment Pain Assessment: 0-10 Pain Score: (does not provide numeric rating) Pain Location: Wrist(hand and wrist) Pain Orientation: Left Diagnosis: 1. Decreased range of motion of left wrist 2. Limitation of joint motion of left hand 3. Decreased activities of daily living (ADL) 4. Left wrist pain Objective: Abdominal pad at volar wrist and palm region saturated upon arrival. Dressings were sticking to wound site in general and required significant time and saline to remove. Pt and family member educated on safely removing to avoid removing good tissue. Deferred patient and family to surgeon and wound care team for more specific recommendations. Redressed with light compressive wrap of kerlix gauze due to patient going to appointment with Dr. Armenta after OT session. Notified Dr. Armenta regarding this. Outpatient OT Treatment Row Name 06/11/20 0700 Orthosis Training Orthosis Comments Pt presented with L volar wrist, distally migrated Therapeutic Exercise Therapeutic Exercise Activity 1 Active ROM L wrist/forearm and hand/fingers Therapeutic Exercise Activity 2 Gentle passive ROM L hand/fingers and wrist Manual Therapy Manual Therapy Activity 1 Edema massage on dorsal hand/wrist region Manual Therapy Activity 2 Scar massage at volar and dorsal scars Assessment: Pt presents with significant decreased ROM L wrist, forearm and hand/fingers. Pt with limiting factors of edema and wound with significance noted at 1st webspace and palmar region. Two dark regions noted at ulnar side of palm with some thick, milky colored exudate, including significant amount in 1st webspace. There are concerns with maceration of areas possibly due to dressings becoming too saturated between dressing changes. Pending wound care recommendations regarding possible change in frequencyof dressing changes. Pt has appointment with wound care this afternoon and she will benefit from this to optimize healing of this wound. As wound heals and edema is managed, patient will likely need orthotic adjustment due to difference in edema and dressing needs/application. Pt will benefit from OT for improved function of L UE. Plan: Continue OT POC. ROSALINE Alicia, MOT License #[id number] Occupational Therapy [facility] Department of Rehabilitation Services M-W-F at [facility] T-Th at [facility] documented in this encounter Plan of Treatment Date Type Specialty Care Team Description 06/11/2020 Office Visit Internal Medicine Jatin Roldan MD [address] [id number] 06/25/2020 Office Visit Orthopedic Surgery Chandler Armenta MD [address] [place], [place] [address] 06/25/2020 Ancillary Visit Occupational Therapy Jen Reyes MD [address] [facility] [id number] [place], [place] [address] Anand Hughes OT [address] [place] [address] Health Maintenance Due Date Last Done Comments [...] of this encounter Implants Implanted Type Area Legislative Director Device Shelf Model / Identifier Expiration Serial / Date Lot Cancellous Crushed, Community Tissue Ser vices (1 10mm) Freeze Dried 7.5 Cc #1233-12 - [id number] BONE Left: Community Tissue 025 1233-12 / Implanted: Qty: 1 on 05/15/2020 by Jose Armenta MD at [facility] Wrist Services [id number] / NA Component Sfc Outer 28mm Trimed #Sfcoc.2828 - Sna Insert Left: [employer] 05/15/2030 SFCOC.2828 / Implanted: Qty: 1 on 05/15/2020 by Jose Armenta MD at [facility] Wrist NA / NA Plate Pin 5h Trimed #Rcp5 - S0 PLATE Left: [employer] 05/15/2020 RCP5 / Implanted: Qty: 1 on 05/15/2020 by Jose Armenta MD at [facility] Wrist 0 / 0 Plate Hook 4h Trimed #Whv-4 - Sna PLATE Left: [employer] 05/15/2030 WHV-4 / Implanted: Qty: 1 on 05/15/2020 by Jose Armenta MD at [facility] Wrist NA / NA Plate Wire Form 3h Trimed #Wfp3 - Sna PLATE Left: [employer] 05/15/2030 WFP3 / Implanted: Qty: 1 on 05/15/2020 by Jose Armenta MD at [facility] Wrist NA / NA Plate Peg Ulnar 5h Trimed #Upg-5 - Sna PLATE Left: [employer] 05/15/2030 UPG-5 / Implanted: Qty: 1 on 05/15/2020 by Jose Armenta MD at [facility] Wrist NA / NA Peg 2.5prx14ve Threaded Locking Trimed Ref#Tpeg-12 - Sna Peg L eft: [employer] 05/15/2030 TPEG-12 / Implanted: Qty: 3 on 05/15/2020 by Jose Armenta MD at [facility] Wrist NA / NA Screw 2.9ivi74wk Threaded Locking Peg Trimed Ref#Tpeg-18 - Sna S CREW Left: [employer] 05/15/2030 TPEG-18 / Implanted: Qty: 1 on 05/15/2020 by Jose Armenta MD at [facility] Wrist NA / NA Screw 2.7kyq39an Threaded Locking Peg Trimed Ref#Tpeg-20 - Sna S CREW Left: [employer] 05/15/2030 TPEG-20 / Implanted: Qty: 1 on 05/15/2020 by Jose Armenta MD at [facility] Wrist NA / NA Screw Cortical 2.3mm X 16mm Trimed #Trx2.3-16 - S0 SCREW Left: [employer] 05/15/2020 TRX2.3-16 / Implanted: Qty: 2 on 05/15/2020 by Jose Armenta MD at [facility] Wrist 0 / 0 Screw Cortical 2.3mm X 20mm Trimed #Trx2.3-20 - S0 SCREW Left: [employer] 05/15/2020 TRX2.3-20 / Implanted: Qty: 1 on 05/15/2020 by Jose Armenta MD at [facility] Wrist 0 / 0 Screw Cortical 2.3mm X 12mm Trimed #Trx2.3-12 - Sna SCREW Left: [employer] 05/15/2030 TRX2.3-12 / Implanted: Qty: 1 on 05/15/2020 by Jose Armenta MD at [facility] Wrist NA / NA Screw 2.5duz93xm Threaded Locking Peg Trimed Ref#Tpeg-14 - Sna S CREW Left: [employer] 05/15/2030 TPEG-14 / Implanted: Qty: 2 on 05/15/2020 by Jose Armenta MD at [facility] Wrist NA / NA Kwire 1.1mm Trimed Ref# Wire-1.1/100 - S0 Supply Left: [employer] 05/15/2020 WIRE-. / Implanted: Qty: 6 on 05/15/2020 by Jose Armenta MD at [facility] Item Wrist 0 / 0 documented as of this encounter Results Not on filedocumented in this encounter Visit Diagnoses Diagnosis Decreased range of motion of left wrist - Primary Limitation of joint motion of left hand Decreased activities of daily living (AD L) Left wrist pain Pain in joint, forearm documented in this encounter Insurance Payer Benefit Plan Subscriber ID Effective Phone Address Typ e / Group Dates AETNA - AETNA [id number] 2019-Prese [address] Me dicare Adv MANAGED MEDICARE ADV [place] [id number] [place] [address] documented as of this encounter
--- OUTSIDE RECORDS SUMMARY | 2020-08-30 11:02 | XMS REPORT | Summary of Care ---
:1955 Author Organization [facility] Address [address] [place] [address] Care Team Providers Name Role Phone Roseanne Dahl Primary Care Provider Reason for Visit Reason Comments Follow-up left hand, post op Other (Routine) Status Reason Specialty Diagnoses / Referred By Referred To Procedures Contact Contact Authorized Orthopedic Surgery Diagnoses Closed fracture of distal end of left radius, unspecified fracture morphology, initial encounter Gasper Shelton, Gasper Shelton, Procedures Discharge Follow-up: Specialty Provider GASPER SHELTON; 2 Weeks MD [facility] [address] [place] [phone] Phone: Fax: Encounter Details Date Type Department Care Team Description 06/11/2020 Office Visit [facility] Gasper Shelton MD Closed fracture of Orthopaedic Surgery- [address] [place] [address] di stal end of [facility] radius, unspecified 0 [place], [place] fractur e morphology, [facility] [address] initial encounter [place], [place] [phone] (Primary Dx) [address] [phone] Allergies No Known Allergiesdocumented as of this [...] R directed 3 (three) INJECTION) times daily. Jmbha-6-YOU-EPA-F Take 1 capsule by 0 Active satnam Oil (FISH mouth daily. OIL) 1,000 mg (120 mg-180 mg) Cap aspirin 81 mg EC Take 81 mg by 0 Active tablet mouth daily. traMADoL 50 mg Take 1 tablet by 21 tablet 0 06/18/20 Active tabletIndications mouth every 8 0 20 : acute pain (eight) hours as needed for Pain (scale 4-6) for up to 7 days. Indications: acute pain traMADoL 50 mg Take 50 mg by 0 06/11/20 D iscontinued tablet mouth every 8 0 20 (Reord er) (eight) hours as needed. documented as of this encounter (statuses as of 06/11/2020) Active Problems No known active problemsdocumented as [...] Pressure - - Pulse - - Temperature 35.6 C (96.1 F) 06/11/2020 10:58 AM CDT Respiratory Rate - - Oxygen Saturation - - Inhaled Oxygen Concentration - - Weight 97.7 kg (215 lb 4.8 oz) 06/11/2020 10:58 AM CDT Height - - Body Mass Index 39.38 05/15/2020 9:38 AM CDT documented in this encounter Progress Notes Reymundo Stanley MD - 06/11/2020 10:40 AM CDT Ortho Hand Clinic Note 06/11/2020 11:21 Procedure: Left hand distal radius and ulna [...] chills, n/v. Doesreport diffuse numbness throughout hand. Interval Hx, 06/11/2020 Pt reports her pain is better controlled .She is seeing wound care for her skin maceration and doingdaily dressing changes with assitance form her daughter. Her daughter reports improvement in appearance of hand. No new complaints at this time. 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 Superficial maceration wound to 1st webspace. Improved Appearance of Limb: Moderate swelling throughout hand [...] distal radius and ulna ORIF of 05/15 with superficial palmar skin maceration 2/2 blister formation. PLAN: I have discussed the patient's physical exam and reviewed their x-rays and imaging with them in detail. All questions have been answered. We have talked about all the treatment options and have agreed upon: - volar wrist sutures removed and hand dressed - c/w OT protocol - c/w Wound care, appreciate recs - Activity modification to minimize pain - NSAIDs prn for pain - 7 days of tramadol prescribed for pain - Follow up in 1 week - Condition and plans were discussed with patient, who expressed understanding and is agreeable to the plan. - All questions were answered, concerns addressed; risks and benefits were discussed. - Patient was instructed to schedule earlier appointment if symptoms worsen. -Restrictions: NWB KATELIN Stanley MD documented in this encounter Plan of Treatment Date Type Specialty Care Team Description 06/11/2020 Office Visit Internal Medicine Jatin Roldan MD [address] [address] [phone] 06/24/2020 Ancillary Visit Occupational Therapy Jen Reyes MD [address] [facility] [id number] [place], [place] [address] Anand Hughes, OT [address] [place] [address] Health Maintenance Due Date Last Done Comments [...] of this encounter Implants Implanted Type Area Trophy Assembler Device Shelf Model / Identifier Expiration Serial / Date Lot Cancellous Crushed, Community Tissue Ser vices (1 10mm) Freeze Dried 7.5 Cc #1233-12 - [id number] BONE Left: Community Tissue 025 1233-12 / Implanted: Qty: 1 on 05/15/2020 by Gasper Shelton MD at [facility] Wrist Services [id number] / NA Component Sfc Outer 28mm Trimed #Sfcoc. - Sna Insert Left: [employer] 05/15/2030 SFCOC. / Implanted: Qty: 1 on 05/15/2020 by Gasper Shelton MD at [facility] Wrist NA / NA Plate Pin 5h Trimed #Rcp5 - S0 PLATE Left: [employer] 05/15/2020 RCP5 / Implanted: Qty: 1 on 05/15/2020 by Gasper Shelton MD at [facility] Wrist 0 / 0 Plate Hook 4h Trimed #Whv-4 - Sna PLATE Left: [employer] 05/15/2030 WHV-4 / Implanted: Qty: 1 on 05/15/2020 by Gasper Shelton MD at [facility] Wrist NA / NA Plate Wire Form 3h Trimed #Wfp3 - Sna PLATE Left: [employer] 05/15/2030 WFP3 / Implanted: Qty: 1 on 05/15/2020 by Gasper Shelton MD at [facility] Wrist NA / NA Plate Peg Ulnar 5h Trimed #Upg-5 - Sna PLATE Left: [employer] 05/15/2030 UPG-5 / Implanted: Qty: 1 on 05/15/2020 by Gasper Shelton MD at [facility] Wrist NA / NA Peg 2.4jug90tk Threaded Locking Trimed Ref#Tpeg-12 - Sna Peg L eft: [employer] 05/15/2030 TPEG-12 / Implanted: Qty: 3 on 05/15/2020 by Gasper Shelton MD at [facility] Wrist NA / NA Screw 2.3fyx66xw Threaded Locking Peg Trimed Ref#Tpeg-18 - Sna S CREW Left: [employer] 05/15/2030 TPEG-18 / Implanted: Qty: 1 on 05/15/2020 by Gasper Shelton MD at [facility] Wrist NA / NA Screw 2.2nlo28br Threaded Locking Peg Trimed Ref#Tpeg-20 - Sna S CREW Left: [employer] 05/15/2030 TPEG-20 / Implanted: Qty: 1 on 05/15/2020 by Gasper Shelton MD at [facility] Wrist NA / NA Screw Cortical 2.3mm X 16mm Trimed #Trx2.3-16 - S0 SCREW Left: [employer] 05/15/2020 TRX2.3-16 / Implanted: Qty: 2 on 05/15/2020 by Gasper Shelton MD at [facility] Wrist 0 / 0 Screw Cortical 2.3mm X 20mm Trimed #Trx2.3-20 - S0 SCREW Left: [employer] 05/15/2020 TRX2.3-20 / Implanted: Qty: 1 on 05/15/2020 by Gasper Shelton MD at [facility] Wrist 0 / 0 Screw Cortical 2.3mm X 12mm Trimed #Trx2.3-12 - Sna SCREW Left: [employer] 05/15/2030 TRX2.3-12 / Implanted: Qty: 1 on 05/15/2020 by Gasper Shelton MD at [facility] Wrist NA / NA Screw 2.1urb46uv Threaded Locking Peg Trimed Ref#Tpeg-14 - Sna S CREW Left: [employer] 05/15/2030 TPEG-14 / Implanted: Qty: 2 on 05/15/2020 by Gasper Shelton MD at [facility] Wrist NA / NA Kwire 1.1mm Trimed Ref# Wire-1.1100 - S0 Supply Left: [employer] 05/15/2020 WIRE-1.1/100 / Implanted: Qty: 6 on 05/15/2020 by Gasper Shelton MD at [facility] Item Wrist 0 / 0 documented as of this encounter Results Not on filedocumented in this encounter Visit Diagnoses Diagnosis Closed fracture of distal end of left ra dius, unspecified fracture morphology, initial encounter - Primary documented in this encounter Insurance Payer Benefit Plan Subscriber ID Effective Phone Address Typ e / Group Dates AETNA - AETNA [id number] 2019-Prese P O BOX Me dicare Adv MANAGED MEDICARE ADV nt [id number] [place] [address] documented as of this encounter"
--- OUTSIDE RECORDS SUMMARY | 2020-08-30 11:02 | XMS REPORT | Summary of Care ---
:1955 Author Organization [facility] Address [address] [place] [address] Care Team Providers Name Role Phone Roseanne [...] Provider GASPER SHELTON; 2 Weeks MD [facility] [address] [place] [phone] Phone: Fax: Encounter Details Date Type Department Care Team Description 06/11/2020 Office Visit [facility] Gasper Shelton MD Closed fracture of Orthopaedic Surgery- [address] [place] [address] di stal end of [facility] radius, unspecified 0 [place], [place] fractur e morphology, [facility] [address] initial encounter [place], [place] [phone] (Primary Dx) [address] [phone] Allergies No Known Allergiesdocumented as of this [...] R directed 3 (three) INJECTION) times daily. 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.: 5 Carry a shopping bag or briefcase.: [...] Office Visit Internal Medicine Jatin Roldan MD [address] [address] [phone] 06/24/2020 Ancillary Visit Occupational Therapy Jen Reyes MD [address] [id number] [place] [address] [phone] Anand Hughes, OT 301 [place] [address] 06/25/2020 Office Visit Orthopedic Surgery Chandler Shelton MD [address] [place] [address] [phone] Health Maintenance Due Date Last Done Comments [...] of this encounter Implants Implanted Type Area Container Washer Device Shelf Model / Identifier Expiration Serial / Date Lot Cancellous Crushed, Community Tissue Ser vices (1 10mm) Freeze Dried 7.5 Cc #1233-12 - [id number] BONE Left: Community Tissue 025 1233-12 / Implanted: Qty: 1 on 05/15/2020 by Gasper Shelton MD at [facility] Wrist Services [id number] / NA Component Sfc Outer 28mm Trimed #Sfcoc. - Sna Insert Left: [employer] 05/15/2030 SFCOC. / Implanted: Qty: 1 on 05/15/2020 by Gasper Shelton MD at [facility] Wrist NA / NA Plate Pin 5h Trimed #Rcp5 - S0 PLATE Left: [employer] 05/15/2020 RCP5 / Implanted: Qty: 1 on 05/15/2020 by Gasper Shelton MD at [facility] Wrist 0 / 0 Plate Hook 4h Trimed #Whv-4 - Sna PLATE Left: [employer] 05/15/2030 WHV-4 / Implanted: Qty: 1 on 05/15/2020 by Gasper Shelton MD at [facility] Wrist NA / NA Plate Wire Form 3h Trimed #Wfp3 - Sna PLATE Left: [employer] 05/15/2030 WFP3 / Implanted: Qty: 1 on 05/15/2020 by Gasper Shelton MD at [facility] Wrist NA / NA Plate Peg Ulnar 5h Trimed #Upg-5 - Sna PLATE Left: [employer] 05/15/2030 UPG-5 / Implanted: Qty: 1 on 05/15/2020 by Gasper Shelton MD at [facility] Wrist NA / NA Peg 2.1ony51ac Threaded Locking Trimed Ref#Tpeg-12 - Sna Peg L eft: [employer] 05/15/2030 TPEG-12 / Implanted: Qty: 3 on 05/15/2020 by Gasper Shelton MD at [facility] Wrist NA / NA Screw 2.8scg75nq Threaded Locking Peg Trimed Ref#Tpeg-18 - Sna S CREW Left: [employer] 05/15/2030 TPEG-18 / Implanted: Qty: 1 on 05/15/2020 by Gasper Shelton MD at [facility] Wrist NA / NA Screw 2.8jos96ke Threaded Locking Peg Trimed Ref#Tpeg-20 - Sna S CREW Left: [employer] 05/15/2030 TPEG-20 / Implanted: Qty: 1 on 05/15/2020 by Gasper Shelton MD at [facility] Wrist NA / NA Screw Cortical 2.3mm X 16mm Trimed #Trx2.3-16 - S0 SCREW Left: [employer] 05/15/2020 TRX2.3-16 / Implanted: Qty: 2 on 05/15/2020 by Gasper Shelton MD at [facility] Wrist 0 / 0 Screw Cortical 2.3mm X 20mm Trimed #Trx2.3-20 - S0 SCREW Left: [employer] 05/15/2020 TRX2.3-20 / Implanted: Qty: 1 on 05/15/2020 by Gasper Shelton MD at [facility] Wrist 0 / 0 Screw Cortical 2.3mm X 12mm Trimed #Trx2.3-12 - Sna SCREW Left: [employer] 05/15/2030 TRX2.3-12 / Implanted: Qty: 1 on 05/15/2020 by Gasper Shelton MD at [facility] Wrist NA / NA Screw 2.6ini87oe Threaded Locking Peg Trimed Ref#Tpeg-14 - Sna S CREW Left: [employer] 05/15/2030 TPEG-14 / Implanted: Qty: 2 on 05/15/2020 by Gasper Shelton MD at [facility] Wrist NA / NA Kwire 1.1mm Trimed Ref# Wire-1.1/100 - S0 Supply Left: [employer] 05/15/2020 WIRE-1.1/100 / Implanted: Qty: 6 on 05/15/2020 by Gasper Shelton MD at [facility] Item Wrist 0 / 0 documented as of this encounter Results Not on filedocumented in this encounter Visit Diagnoses Diagnosis Closed fracture of distal end of left ra dius, unspecified fracture morphology, initial encounter - Primary documented in this encounter Insurance Payer Benefit Plan Subscriber ID Effective Phone Address Typ e / Group Dates AETNA - AETNA [id number] 2019-Prese P O BOX Me dicare Adv MANAGED MEDICARE ADV nt [id number] [place] [address] documented as of this encounter"
--- OUTSIDE RECORDS SUMMARY | 2020-08-30 11:02 | XMS REPORT | Summary of Care ---
:[address] [facility] Address [address] [place] [address] Care Team Providers Name Role Phone Roseanne Dahl Primary Care Provider Reason for Visit Reason Comments Follow-up Left arm Other (Routine) Status Reason Specialty Diagnoses / Referred By Referred To Procedures Contact Contact Authorized Orthopedic Surgery Diagnoses Closed fracture of distal end of left radius, unspecified fracture morphology, initial encounter Gasper Shelton, Gasper Shelton, Procedures Discharge Follow-up: Specialty Provider GASPER SHELTON; 2 Weeks MD PETERSON [address] [place] [address] [phone] Phone: Fax: Encounter Details Date Type Department Care Team Description 06/25/2020 Office Visit [facility] Gasper Shelton MD Closed fracture of Orthopaedic Surgery- [facility] end of left [facility] radius, unspecified [address] [place], [place] fractur e morphology, [facility] [address] initial encounter [place], [place] [phone] (Primary Dx) [phone] Allergies No Known Allergiesdocumented as of this encounter (statuses as of 06/25/2020) Medications Medication Sig Dispensed Refills Start Date [...] tablet MOUTH ONCE DAILY FOR 90 DAYS traZODone 100 mg 0 05/04/2020 Ac tive [...] R directed 3 (three) INJECTION) times daily. Kcogg-1-YGL-EPA-Fis Take 1 capsule by 0 Active h Oil (FISH OIL) mouth daily. 1,000 mg (120 mg-180 mg) Cap aspirin 81 mg EC Take 81 mg by mouth 0 Active tablet daily. doxycycline 100 mg Take 1 tablet by 28 tablet 0 06/18/202006/2020 Active EC mouth 2 (two) times tabletIndications: daily for 14 days. Abscess of arm, left amitriptyline 10 mg Take 1 tablet by 30 tablet 1 06/25/2020 Active tabletIndications: mouth every evening Closed fracture of for 30 days. distal end of left radius, unspecified fracture morphology, initial encounter documented as of this encounter (statuses as of 06/25/2020) Active Problems Problem Noted Date Abscess of arm, left 06/20/2020 Furunculosis of skin and subcutaneous tissue 0 Decreased range of motion of left wrist 06/11/2020 Limitation of joint motion of left hand 06/11/2020 Decreased activities of daily living (ADL) 06/11/2020 Left wrist pain 06/11/2020 Class 3 severe obesity due to excess calories with ser ious comorbidity and 06/11/2020 body mass index (BMI) of 40.0 to 44.9 in adult Open wound of left hand with complication, subsequent encounter 06/11/2020 Blindness of both eyes 06/11/2020 Immobility 06/11/2020 Gallegos's fracture of left radius, subsequent encounter for closed fracture 06/11/2020 with routine healing documented as of this encounter (statuses as of 06/25/2020) Social History Tobacco Use Types Packs/Day Years Used Date Never Smoker Smokeless Tobacco: Never Used Sex Assigned at Date Recorded Not on file COVID-19 Exposure Response Date Recorded In the last month, have you been in contact with No / Unsure 06/25/2020 2:17 PM TRUST ADVISOR someone who was confirmed or suspected to have Coronavirus / COVID-19? documented as of this encounter Last Filed Vital Signs Vital Sign Reading Time Taken Comments Blood Pressure - - Pulse - - Temperature 35.9 C (96.7 F) 06/25/2020 3:10 PM TRUST ADVISOR Respiratory Rate - - Oxygen Saturation - - Inhaled Oxygen Concentration - - Weight 93.5 kg (206 lb 1.6 oz) 06/25/2020 3:10 PM TRUST ADVISOR Height - - Body Mass Index 37.7 05/15/2020 9:38 AM CDT documented in this encounter Progress Notes Reymundo Stanley MD - 06/25/2020 3:00 PM CST Ortho Hand [facility] Note 06/25/2020 15:23 Procedure: Left hand distal radius and ulna [...] hand. No new complaints at this time. Interval Hx, 06/25/2020 Pt reports that she is in a bad mood today but she is otherwise doing well. Her pain is well controlled and she believes that her wound is improving based of her visits with the wound care specialists.Has some trouble sleeping. Past Medical History: Diagnosis Date Blindness of [...] [place] Location Medications: Current Outpatient Medications: doxycycline 100 mg EC tablet, Take 1 tablet by mouth 2 (two) times daily for 14 days., Disp: 28tablet, Rfl: 0 aspirin 81 mg EC tablet, Take 81 mg by mouth daily., Disp: , Rfl: insulin NPH human isophane (NOVOLIN N SC), inject 65 Units under the skin daily., Disp: , Rfl: insulin regular, human (NOVOLIN R INJECTION), Inject 20 Units as directed 3 (three) times daily., Disp: , Rfl: Omlfc-2-PLT-EPA-Fish Oil (FISH OIL) 1,000 mg (120 mg-180 [...] EVERY 12 HOURS NEEDED, Disp: , Rfl: traZODone 100 mg tablet, [...] file Gets together: Not on file Attends scientologist service: Not on file Active member of [...] tight or new jar.: 5 Do heavy security representative.: 5 Carry a shopping bag or briefcase.: 5 Wash your back.: 5 Use a knife to cut food.: 5 Recreational activites in which you take some force or impact through your arm, shoulder or hand.: 5 During the past week, to what extent has your arm, shoulder, or hand problem interfered with your normal social activites with family, friends, neighbours or groups?: 4 During the past week, were you limited in your work or other regular daily activites as a result of your arm, shoulder, or hand problem?: 5 Arm, shoulder or hand pain.: 4 Tingling (pins and needles) in your arm, shoulder or hand.: 3 During the past week, how much difficulty have you had sleeping because of the pain in your arm, shoulder, or hand? : 3 Quick Dash Disability/Symptom Score Calculated: 86.36 Physical Examination: Temp 35.9 C (96.7 F) (Temporal Artery) | Wt 93.5 kg (206 lb 1.6 oz) | BMI 37.70 kg/m No fever General: NAD, pleasant and [...] treatment options and have agreed upon: - c/w OT protocol - c/w Wound care, appreciate recs - Activity modification to minimize pain - NSAIDs prn for pain - Elavil prescribed for pain at night - Follow up in 4 weeks with xrays - Condition and plans were discussed with patient, who expressed understanding and is agreeable to the plan. - All questions were answered, concerns addressed; risks and benefits were discussed. - Patient was instructed to schedule earlier appointment if symptoms worsen. -Restrictions: NWB KATELIN Stanley MD T ADVISOR documented in this encounter Plan of Treatment Date Type Specialty Care Team Description 06/25/2020 Ancillary Visit Occupational Therapy Jen Reyes MD [address] [place] [address] [id number] [place] [address] [phone] Anand Hughes, OT [address] [place] [address] 07/02/2020 Office Visit Internal Medicine Jatin Roldan MD [address] [place] [address] 07/09/2020 Office Visit Internal Medicine Jatin Roldan MD [address] [place] [address] 125[address] 07/16/2020 Office Visit Internal Medicine Jatin Roldan MD [address] [place] [address] 07/23/2020 Office Visit Internal Medicine Jatin Roldan MD [address] [place] [address] Health Maintenance Due Date Last Done Comments [...] of this encounter Implants Implanted Type Area Assistant Football Coach Device Shelf Model / Identifier Expiration Serial / Date Lot Cancellous Crushed, Community Tissue Ser vices (1 10mm) Freeze Dried 7.5 Cc #1233-12 - [id number] BONE Left: Community Tissue 025 1233-12 / Implanted: Qty: 1 on 05/15/2020 by Gasper Shelton MD at [facility] Wrist Services [id number] / NA Component Sfc Outer 28mm Trimed #Sfcoc.2828 - Sna Insert Left: [employer] 05/15/2030 SFCOC.2828 / Implanted: Qty: 1 on 05/15/2020 by Gasper Shelton MD at [facility] Wrist NA / NA Plate Pin 5h Trimed #Rcp5 - S0 PLATE Left: [employer] 05/15/2020 RCP5 / Implanted: Qty: 1 on 05/15/2020 by Gasper Shelton MD at [facility] Wrist 0 / 0 Plate Hook 4h Trimed #Whv-4 - Sna PLATE Left: [employer] 05/15/2030 WHV-4 / Implanted: Qty: 1 on 05/15/2020 by Gasper Shelton MD at [facility] Wrist NA / NA Plate Wire Form 3h Trimed #Wfp3 - Sna PLATE Left: [employer] 05/15/2030 WFP3 / Implanted: Qty: 1 on 05/15/2020 by Gasper Shelton MD at [facility] Wrist NA / NA Plate Peg Ulnar 5h Trimed #Upg-5 - Sna PLATE Left: [employer] 05/15/2030 UPG-5 / Implanted: Qty: 1 on 05/15/2020 by Gapser Shelton MD at [facility] Wrist NA / NA Peg 2.6mxx95il Threaded Locking Trimed Ref#Tpeg-12 - Sna Peg L eft: [employer] 05/15/2030 TPEG-12 / Implanted: Qty: 3 on 05/15/2020 by Gasper Shelton MD at [facility] Wrist NA / NA Screw 2.3rnb94vh Threaded Locking Peg Trimed Ref#Tpeg-18 - Sna S CREW Left: [employer] 05/15/2030 TPEG-18 / Implanted: Qty: 1 on 05/15/2020 by Gasper Shelton MD at [facility] Wrist NA / NA Screw 2.1soi13cq Threaded Locking Peg Trimed Ref#Tpeg-20 - Sna S CREW Left: [employer] 05/15/2030 TPEG-20 / Implanted: Qty: 1 on 05/15/2020 by Gasper Shelton MD at [facility] Wrist NA / NA Screw Cortical 2.3mm X 16mm Trimed #Trx2.3-16 - S0 SCREW Left: [employer] 05/15/2020 TRX2.3-16 / Implanted: Qty: 2 on 05/15/2020 by Gasper Shelton MD at [facility] Wrist 0 / 0 Screw Cortical 2.3mm X 20mm Trimed #Trx2.3-20 - S0 SCREW Left: [employer] 05/15/2020 TRX2.3-20 / Implanted: Qty: 1 on 05/15/2020 by Gasper Shelton MD at [facility] Wrist 0 / 0 Screw Cortical 2.3mm X 12mm Trimed #Trx2.3-12 - Sna SCREW Left: [employer] 05/15/2030 TRX2.3-12 / Implanted: Qty: 1 on 05/15/2020 by Gasper Shelton MD at [facility] Wrist NA / NA Screw 2.0lhy68ta Threaded Locking Peg Trimed Ref#Tpeg-14 - Sna S CREW Left: [employer] 05/15/2030 TPEG-14 / Implanted: Qty: 2 on 05/15/2020 by Gasper Shelton MD at [facility] Wrist NA / NA Kwire 1.1mm Trimed Ref# Wire-1. - S0 Supply Left: [employer] 05/15/2020 WIRE- / Implanted: Qty: 6 on 05/15/2020 by Gasper Shelton MD at [facility] Item Wrist 0 / 0 documented as of this encounter Results Not on filedocumented in this encounter Visit Diagnoses Diagnosis Closed fracture of distal end of left ra dius, unspecified fracture morphology, initial encounter - Primary documented in this encounter Insurance Payer Benefit Plan Subscriber ID Effective Phone Address Typ e / Group Dates AETNA - AETNA [id number] 2019-Prese [address] BOX Me dicare Adv [place]NAGED [place]IC[place] [id number] [place] [address] documented as of this encounter"
--- OUTSIDE RECORDS SUMMARY | 2020-08-30 11:03 | XMS REPORT | Summary of Care ---
:1955 Author Organization [facility] - [facility] Address [address] [place] [address] Care Team Providers Name Role Phone Roseanne Dahl Donato Primary Care Provider Encounter Details Date Type Department Care Team Description 06/25/2020 Orders Only [facility] Doctor Unassigned, No [address] [facility] Name [place] [id number] [address] [place] [address] Allergies No Known Allergiesdocumented as of this encounter (statuses as of 07/01/2020) Medications Medication Sig Dispensed Refills Start Date [...] R directed 3 (three) INJECTION) times daily. Qwaym-1-GHN-EPA-Fis Take 1 capsule by 0 Active h [...] as of this encounter (statuses as of 07/01/2020) Active Problems Problem Noted Date Abscess of [...] as of this encounter (statuses as of 07/01/2020) Social History Tobacco Use Types Packs/Day Years Used Date Never Smoker Smokeless Tobacco: Never Used Sex Assigned at Date Recorded Not on file COVID-19 Exposure Response Date Recorded In the last month, have you been in contact with No / Unsure 06/25/2020 2:17 PM GILL NET STRINGER someone who was confirmed or suspected to have Coronavirus / COVID-19? documented as of this encounter Last Filed Vital Signs Not on filedocumented in this encounter Plan of Treatment Date Type Specialty Care Team Description 07/02/2020 Office Visit Internal Medicine Jatin Roldan MD [address] [place] [address] [phone] 07/02/2020 Ancillary Visit Occupational Therapy Jen Reyes MD [address] [facility] [id number] [place] [address] [phone] Anand Hughes, [address] [address] 07/09/2020 Office Visit Internal Medicine Jatin Roldan MD [address] [place] [address] 749353 07/16/2020 Office Visit Internal Medicine Jatin Roldan MD [address] [place] [address] 07/23/2020 Office Visit Internal Medicine Jatin Roldan MD [address] [place] [address] 07/30/2020 Office Visit Orthopedic Surgery Chandler Armenta MD [address] [place], [place] 114403 Health Maintenance Due Date Last Done Comments [...] of this encounter Implants Implanted Type Area Tool Design Engineer Device Shelf Model / Identifier Expiration Serial / Date Lot Cancellous Crushed, Community Tissue Ser vices (1 10mm) Freeze Dried 7.5 Cc #1233-12 - [id number] BONE Left: Community Tissue 025 1233-12 / Implanted: Qty: 1 on 05/15/2020 by Jose Armenta MD at [facility] Wrist Services [id number] / NA Component Sfc Outer 28mm Trimed #Sfcoc. - Sna Insert Left: [employer] 05/15/2030 SFCOC. / Implanted: Qty: 1 on 05/15/2020 by Jose Armenta MD at [facility] Wrist NA / NA Plate Pin 5h Trimed #Rcp5 - S0 PLATE Left: [employer] 05/15/2020 RCP5 / Implanted: Qty: 1 on 05/15/2020 by Jose Armenta MD at [facility] Wrist 0 / 0 Plate Hook 4h Trimed #Whv-4 - Sna PLATE Left: [employer] 05/15/2030 WHV-4 / Implanted: Qty: 1 on 05/15/2020 by Jose Armenta MD at [facility] Wrist NA / NA Plate Wire Form 3h Trimed #Wfp3 - Sna PLATE Left: [employer] 05/15/2030 WFP3 / Implanted: Qty: 1 on 05/15/2020 by Jose Armenta MD at [facility] Wrist NA / NA Plate Peg Ulnar 5h Trimed #Upg-5 - Sna PLATE Left: [employer] 05/15/2030 UPG-5 / Implanted: Qty: 1 on 05/15/2020 by Jose Armenta MD at [facility] Wrist NA / NA Peg 2.5wlc36ok Threaded Locking Trimed Ref#Tpeg-12 - Sna Peg L eft: [employer] 05/15/2030 TPEG-12 / Implanted: Qty: 3 on 05/15/2020 by Jose Armenta MD at [facility] Wrist NA / NA Screw 2.8yzt21er Threaded Locking Peg Trimed Ref#Tpeg-18 - Sna S CREW Left: [employer] 05/15/2030 TPEG-18 / Implanted: Qty: 1 on 05/15/2020 by Jose Armenta MD at [facility] Wrist NA / NA Screw 2.5lfb69ne Threaded Locking Peg Trimed Ref#Tpeg-20 - Sna S CREW Left: [employer] 05/15/2030 TPEG-20 / Implanted: Qty: 1 on 05/15/2020 by Jose Armenta MD at [facility] Wrist NA / NA Screw Cortical 2.3mm X 16mm Trimed #Trx2.3-16 - S0 SCREW Left: [employer] 05/15/2020 TRX2.3-16 / Implanted: Qty: 2 on 05/15/2020 by Jose Armenta MD at [facility] Wrist 0 / 0 Screw Cortical 2.3mm X 20mm Trimed #Trx2.3-20 - S0 SCREW Left: [employer] 05/15/2020 TRX2.3-20 / Implanted: Qty: 1 on 05/15/2020 by Jose Armenta MD at [facility] Wrist 0 / 0 Screw Cortical 2.3mm X 12mm Trimed #Trx2.3-12 - Sna SCREW Left: [employer] 05/15/2030 TRX2.3-12 / Implanted: Qty: 1 on 05/15/2020 by Jose Armenat MD at [facility] Wrist NA / NA Screw 2.1dmk56re Threaded Locking Peg Trimed Ref#Tpeg-14 - Sna S CREW Left: [employer] 05/15/2030 TPEG-14 / Implanted: Qty: 2 on 05/15/2020 by Jose Armenta MD at [facility] Wrist NA / NA Kwire 1.1mm Trimed Ref# Wire-1.1/100 - S0 Supply Left: [employer] 05/15/2020 WIRE-1.1/100 / Implanted: Qty: 6 on 05/15/2020 by Jose Armenta MD at [facility] Item Wrist 0 / 0 documented as of this encounter Procedures Procedure Name Priority Date/Time Associated Diagnosis Comme nts MEDICATION CORRESPONDENCE Routine 06/25/2020 12:01 AM GILL NET STRINGER documented in this encounter Results Not on filedocumented in this encounter Insurance Payer Benefit Plan Subscriber ID Effective Phone Address Typ e / Group Dates AETNA - AETNA [id number] 2019-Prese P O BOX Me dicare Adv MANAGED MEDICARE [place]V nt [id number] [place] [address] documented as of this encounter
--- OUTSIDE RECORDS SUMMARY | 2020-08-30 11:03 | XMS REPORT | Summary of Care ---
:1955 Author Organization [facility] Address [address] [place] [address] Care Team Providers Name Role Phone Roseanne Dahl Primary Care Provider Reason for Visit Reason Comments Follow-up (Routine) Status Reason Specialty Diagnoses / Referred By Referred To Procedures Contact Contact Authorized Occupational Diagnoses Closed fracture of distal end of left radius, unspecified fracture morphology, initial encounter Jose Armenta, Therapy Procedures CONSULT/REFERRAL OCCUPATIONAL THERAPY MD OCCUPATIONAL THERAPY EVAL LOW COMPLEX 30 MINS MD OCCUPATIONAL THERAPY EVAL MOD COMPLEX 45 MINS MD OCCUPATIONAL THERAPY EVAL HIGH COMPLEX 60 MINS MD THERAPEUTIC EXERCISES MD NEUROMUSC REE DUCAT,1+ AREAS, EA 15 MIN MD MANUAL THER TECH,1+REGIONS,EA 15 MIN MD THERAPEUT ACTVITY DIRECT PT CONTACT EACH 15 MIN MD SELF-CARE/HOME MGMT TRAINING EACH 15 MINUTES [address] [place] [address] Encounter Details Date Type Department Care Team Description 06/25/2020 Ancillary Visit [facility] Filemon Link MD [address] [facility] [id number] [place], [place] 6[address] Decreased range of motion of left wrist (Primary Dx); Cassandra & Anand Hughes, OT [address] [place] [address] Limitation of joint motion of left hand; [facility] Decreased activities of daily living (ADL); [place] Left wrist pain [address] [place] [address] Allergies No Known Allergiesdocumented as [...] R directed 3 (three) INJECTION) times daily. Pzjza-8-EJN-EPA-Fis Take 1 capsule by 0 Active h [...] with No / Unsure 06/25/2020 2:17 PM DIRECTOR INDUSTRIAL NURSING someone who was confirmed or suspected to have Coronavirus / COVID-19? documented as of this encounter Last Filed Vital Signs Not on filedocumented in this encounter Progress Notes Anand Hughes, OT - 06/25/2020 4:00 PM CST Occupational Therapy Treatment Date: June 25, 2020 Subjective: Pt anxious throughout session. Diagnosis: 1. Decreased range of motion of left wrist 2. Limitation of joint motion of left hand 3. Decreased activities of daily living (ADL) 4. Left wrist pain Objective: Outpatient OT Treatment Row Name 06/25/20 0700 General Chart Reviewed Yes Family/Caregiver Present Yes Orthosis Training Location L wrist Type volar wrist Orthosis Fabrication Orthosis Education Fitting;Donning;[place];Wear schedule;Precautions Orthosis Comments New volar wrist fabricated for ill fit due to bulky dressing. Wrist positioned in slight extension. Therapeutic Exercise Therapeutic Exercise Activity 1 Active ROM L wrist/forearm and hand/fingers Therapeutic Exercise Activity 2 Gentle passive ROM L hand/fingers and wrist Therapeutic Exercise Acitivity 3 [place] assist L wrist flexion on elevated foam arm trough Manual Therapy Manual Therapy Activity 1 Edema massage on dorsal hand/wrist region Manual Therapy Activity 2 Scar massage at volar and dorsal scars Assessment: Pt presents with impaired ROM of L forearm wrist, hand/fingers with significant wounds of L palm region and edema of fingers a contributing/limiting factor. Pt will benefit from increased duration of passive stretches of fingers, increased frequency of HEP each day. Pt may also benefit from edema management techniques. Pt will benefit from OT for improved function of L UE. Plan: Continue OT POC. K. ROSALINE Hughes, MOT License #[id number] Occupational Therapy [facility] Department of Rehabilitation Services M-W-F at [facility] T-Th at [facility] CTOR INDUSTRIAL NURSING documented in this encounter Plan of Treatment Date Type Specialty Care Team Description 07/02/2020 Ancillary Visit Occupational Therapy Jen Reyes MD [address] [facility] [id number] [place] [address] [phone] Anand Hughes OT [address] [place] [address] 07/02/2020 Office Visit Internal Medicine Jatin Roldan MD [address] [place] [address] 07/09/2020 Office Visit Internal Medicine Jatin Roldan MD [address] [place] [address] 07/16/2020 Office Visit [place] [address] [place] [address] 07/23/2020 Office Visit Internal Medicine Jatin Roldan MD [address] [place] [address] 07/30/2020 Office Visit Orthopedic Surgery Chandler Armenta MD [address] [place] [address] [phone] Health Maintenance Due Date Last Done Comments [...] of this encounter Implants Implanted Type Area Granite Chip Terrazzo Finisher Device Shelf Model / Identifier Expiration Serial / Date Lot Cancellous Crushed, Community Tissue Ser vices (1 10mm) Freeze Dried 7.5 Cc #1233-12 - [id number] BONE Left: Community Tissue 025 1233-12 / Implanted: Qty: 1 on 05/15/2020 by Jose Armenta MD at [facility] Wrist Services [id number] / NA Component Sfc Outer 28mm Trimed #Sfcoc.28 - Sna Insert Left: [employer] 05/15/2030 SFCOC.2828 / Implanted: Qty: 1 on 05/15/2020 by Jose Armenta MD at [facility] Wrist NA / NA Plate Pin 5h Trimed #Rcp5 - S0 PLATE Left: [employer] 05/15/2020 RCP5 / Implanted: Qty: 1 on 05/15/2020 by Jose Armenta MD at [facility] Wrist 0 / 0 Plate Hook 4h Trimed #Whv-4 - Sna PLATE Left: [employer] 05/15/2030 WHV-4 / Implanted: Qty: 1 on 05/15/2020 by Jose Armenta MD at [facility] Wrist NA / NA Plate Wire Form 3h Trimed #Wfp3 - Sna PLATE Left: [employer] 05/15/2030 WFP3 / Implanted: Qty: 1 on 05/15/2020 by Jose Armenta MD at [facility] Wrist NA / NA Plate Peg Ulnar 5h Trimed #Upg-5 - Sna PLATE Left: [employer] 05/15/2030 UPG-5 / Implanted: Qty: 1 on 05/15/2020 by Jose Armenta MD at [facility] Wrist NA / NA Peg 2.9sqn73bk Threaded Locking Trimed Ref#Tpeg-12 - Sna Peg L eft: [employer] 05/15/2030 TPEG-12 / Implanted: Qty: 3 on 05/15/2020 by Jose Armenta MD at [facility] Wrist NA / NA Screw 2.0rux84gw Threaded Locking Peg Trimed Ref#Tpeg-18 - Sna S CREW Left: [employer] 05/15/2030 TPEG-18 / Implanted: Qty: 1 on 05/15/2020 by Jose Armenta MD at [facility] Wrist NA / NA Screw 2.9yuc12pg Threaded Locking Peg Trimed Ref#Tpeg-20 - Sna S CREW Left: [employer] 05/15/2030 TPEG-20 / Implanted: Qty: 1 on 05/15/2020 by Jose Armenta MD at [facility] Wrist NA / NA Screw Cortical 2.3mm X 16mm Trimed #Trx2.3-16 - S0 SCREW Left: [employer] 05/15/2020 TRX2.3-16 / Implanted: Qty: 2 on 05/15/2020 by Jose Armenta MD at [facility] Wrist 0 / 0 Screw Cortical 2.3mm X 20mm Trimed #Trx2.3-20 - S0 SCREW Left: [employer] 05/15/2020 TRX2.3-20 / Implanted: Qty: 1 on 05/15/2020 by Jose Armenta MD at [facility] Wrist 0 / 0 Screw Cortical 2.3mm X 12mm Trimed #Trx2.3-12 - Sna SCREW Left: [employer] 05/15/2030 TRX2.3-12 / Implanted: Qty: 1 on 05/15/2020 by Jose Armenta MD at [facility] Wrist NA / NA Screw 2.5dns15be Threaded Locking Peg Trimed Ref#Tpeg-14 - Sna S CREW Left: [employer] 05/15/2030 TPEG-14 / Implanted: Qty: 2 on 05/15/2020 by Jose Armenta MD at [facility] Wrist NA / NA Kwire 1.1mm Trimed Ref# Wire-1. - S0 Supply Left: [employer] 05/15/2020 WIRE-1.1100 / Implanted: Qty: 6 on 05/15/2020 by Jose Armenta MD at [facility] Item Wrist 0 / 0 documented as [...] e / Group Dates AETNA - AETNA [id number] 2019-Prese P O BOX Me dicare Adv MANAGED MEDICARE AD[place] [id number] [place] [address] documented as of this encounter
--- OUTSIDE RECORDS SUMMARY | 2020-08-30 11:03 | XMS REPORT | Summary of Care ---
:1955 Author Organization [facility] Address [address] [place] [address] 39464 Care Team Providers Name Role Phone Roseanne [...] GASPER SHELTON; 2 Weeks MD PETERSON [address] [place] [address] [phone] Phone: Fax: Encounter Details Date Type Department Care Team Description 06/25/[address] [facility] Gasper Shelton MD Closed fracture of Orthopaedic Surgery- 2[address] [facility] di stal end of left [facility] radius, unspecified [address] [place], [place] fractur e morphology, [facility] [address] initial encounter [place], [place] [phone] (Primary Dx) [address] [phone] Allergies No Known Allergiesdocumented as of this [...] R directed 3 (three) INJECTION) times daily. 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 -Restrictions: NWB KATELIN Stanley MD TRY BARN MANAGER documented in this encounter Plan of Treatment Date Type Specialty Care Team Description 06/25/2020 Ancillary Visit Occupational Therapy Jen Reyes MD [address] [place] [address] [id number] [place] [address] [phone] Anand Hughes, OT [address] [place] [address] 07/02/2020 Office Visit Internal Medicine Jatin Roldan MD [address] [place] [address] 398[address] 07/09/2020 Office Visit Internal Medicine Jatin Roldan MD [address] [place] [address] 26944 07/16/2020 Office Visit Internal Medicine Jatin Roldan MD [address] [place] [address] 22[address] 07/23/2020 Office Visit Internal Medicine Jatin Roldan MD [address] [place] [address] Health Maintenance Due Date Last Done Comments [...] of this encounter Implants Implanted Type Area Flanging Roll Operator Device Shelf Model / Identifier Expiration Serial / Date Lot Cancellous Crushed, Community Tissue Ser vices (1 10mm) Freeze Dried 7.5 Cc #1233-12 - [id number] BONE Left: Community Tissue 025 1233-12 / Implanted: Qty: 1 on 05/15/2020 by Gasper Shelton MD at [facility] Wrist Services [id number] / NA Component Sfc Outer 28mm Trimed #Sfcoc.2828 - Sna Insert Left: [employer] 05/15/2030 SFCOC.2828 / Implanted: Qty: 1 on 05/15/2020 by Gasper Shelton MD at [facility] Wrist NA / NA Plate Pin 5h Trimed #Rcp5 - S0 PLATE Left: [employer] 05/15/2020 RCP5 / Implanted: Qty: 1 on 05/15/2020 by Gasper Shelton MD at [facility] Wrist 0 / 0 Plate Hook 4h Trimed #Whv-4 - Sna PLATE Left: [employer] 05/15/2030 WHV-4 / Implanted: Qty: 1 on 05/15/2020 by Gasper Shelton MD at [facility] Wrist NA / NA Plate Wire Form 3h Trimed #Wfp3 - Sna PLATE Left: [employer] 05/15/2030 WFP3 / Implanted: Qty: 1 on 05/15/2020 by Gasper Shelton MD at [facility] Wrist NA / NA Plate Peg Ulnar 5h Trimed #Upg-5 - Sna PLATE Left: [employer] 05/15/2030 UPG-5 / Implanted: Qty: 1 on 05/15/2020 by Gasper Shelton MD at [facility] Wrist NA / NA Peg 2.2ofl72yj Threaded Locking Trimed Ref#Tpeg-12 - Sna Peg L eft: [employer] 05/15/2030 TPEG-12 / Implanted: Qty: 3 on 05/15/2020 by Gasper Shelton MD at [facility] Wrist NA / NA Screw 2.4svx65im Threaded Locking Peg Trimed Ref#Tpeg-18 - Sna S CREW Left: [employer] 05/15/2030 TPEG-18 / Implanted: Qty: 1 on 05/15/2020 by Gasper Shelton MD at [facility] Wrist NA / NA Screw 2.5noq29fj Threaded Locking Peg Trimed Ref#Tpeg-20 - Sna S CREW Left: [employer] 05/15/2030 TPEG-20 / Implanted: Qty: 1 on 05/15/2020 by Gasper Shelton MD at [facility] Wrist NA / NA Screw Cortical 2.3mm X 16mm Trimed #Trx2.3-16 - S0 SCREW Left: [employer] 05/15/2020 TRX2.3-16 / Implanted: Qty: 2 on 05/15/2020 by Gasper Shelton MD at [facility] Wrist 0 / 0 Screw Cortical 2.3mm X 20mm Trimed #Trx2.3-20 - S0 SCREW Left: [employer] 05/15/2020 TRX2.3-20 / Implanted: Qty: 1 on 05/15/2020 by Gasper Shelton MD at [facility] Wrist 0 / 0 Screw Cortical 2.3mm X 12mm Trimed #Trx2.3-12 - Sna SCREW Left: [employer] 05/15/2030 TRX2.3-12 / Implanted: Qty: 1 on 05/15/2020 by Gasper Shelton MD at [facility] Wrist NA / NA Screw 2.0fbl19au Threaded Locking Peg Trimed Ref#Tpeg-14 - Sna S CREW Left: [employer] 05/15/2030 TPEG-14 / Implanted: Qty: 2 on 05/15/2020 by Gasper Shelton MD at [facility] Wrist NA / NA Kwire 1.1mm Trimed Ref# Wire-1. - S0 Supply Left: [employer] 05/15/2020 WIRE- / Implanted: Qty: 6 on 05/15/2020 by Gasper Shelton MD at [facility] Item Wrist 0 / 0 documented as of this encounter Results Not on filedocumented in this encounter Visit Diagnoses Diagnosis Closed fracture of distal end of left ra dius, unspecified fracture morphology, initial encounter - Primary documented in this encounter Insurance Payer Benefit Plan Subscriber ID Effective Phone Address Typ e / Group Dates AETNA - AETNA [id number] 2019-Prese P O BOX Me dicare Adv MANAGED MEDICARE ADV nt [id number] [place] [address] documented as of this encounter"
--- OUTSIDE RECORDS SUMMARY | 2020-08-30 11:04 | XMS REPORT | Summary of Care ---
:1955 Author Organization [facility] Address [address] [place] [address] Care Team Providers Name Role Phone Nabila Roseanne L Primary Care Provider Reason for Visit Reason Comments Follow-up (Routine) Status Reason Specialty Diagnoses / Referred By Referred To Procedures Contact Contact Authorized Occupational Diagnoses Closed fracture of distal end of left radius, unspecified fracture morphology, initial encounter Jose Armenta, Therapy Procedures CONSULT/REFERRAL OCCUPATIONAL THERAPY ID OCCUPATIONAL THERAPY EVAL LOW COMPLEX 30 MINS ID OCCUPATIONAL THERAPY EVAL MOD COMPLEX 45 MINS ID OCCUPATIONAL THERAPY EVAL HIGH COMPLEX 60 MINS ID THERAPEUTIC EXERCISES ID NEUROMUSC REE DUCAT,1+ AREAS, EA 15 MIN ID MANUAL THER TECH,1+REGIONS,EA 15 MIN ID THERAPEUT ACTVITY DIRECT PT CONTACT EACH 15 MIN ID SELF-CARE/HOME MGMT TRAINING EACH 15 MINUTES [address] [place] [address] Encounter Details Date Type Department Care Team Description 07/08/2020 Ancillary Visit [facility] Filemon Reyes MD [address] [facility] [address] [place], [place] [phone] Decreased range of motion of left wrist (Primary Dx); Occupational Therapy- Anand Hughes, OT [address] [place] [address] Limitation of joint motion of left hand; J[place] Decreased activities of dav y living (ADL); Professional Office Left [address] [place] [address] Allergies No Known Allergiesdocumented as of this encounter (statuses as of 07/09/2020) Medications Medication Sig Dispensed Refills Start Date [...] R directed 3 (three) INJECTION) times daily. Sqwod-4-NYN-EPA-Fis Take 1 capsule by 0 Active h Oil (FISH OIL) mouth daily. 1,000 mg (120 mg-180 mg) Cap aspirin 81 mg EC Take 81 mg by mouth 0 Active tablet daily. amitriptyline 10 mg Take 1 tablet by 30 tablet 1 06/25/2020 Active tabletIndications: mouth every evening Closed fracture of for 30 days. 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 documented as of this encounter Last Filed Vital Signs Not on filedocumented in this encounter Progress Notes Anand Hughes, OT - 07/08/2020 1:00 PM CST Occupational Therapy Treatment Date: July 08, 2020 Subjective: Pain Assessment Pain Assessment: (no rating provided today. No c/o pain today.) Diagnosis: 1. Decreased range of motion of left wrist 2. Limitation of joint motion of left hand 3. Decreased activities of daily living (ADL) 4. Left wrist pain Objective: Outpatient OT Treatment Row Name 07/08/20 1400 General Visit Number 5 Chart Reviewed Yes Family/Caregiver Present Yes Pain Assessment Pain Assessment no rating provided today. No c/o pain today. Orthosis Training Location L wrist Type volar wrist Orthosis Comments Pt presents with L volar wrist Therapeutic Exercise Therapeutic Exercise Activity 1 Active ROM L wrist/forearm and hand/fingers Therapeutic Exercise Activity 2 Passive ROM L hand/fingers Therapeutic Exercise Acitivity 3 Passive ROM L forearm and wrist Manual Therapy Manual Therapy Activity 1 Edema massage on dorsal hand/wrist region Manual Therapy Activity 2 Scar massage at volar and dorsal scars L volar wrist orthosis and dressings doffed. Moderate maceration noted at palm region surrounding wound and mild maceration that extended over to small wound near 1st webspace. Thick, yellow exudate noted at these wounds. Maceration improved with air drying while performing therex total time of ~ >40 minutes. Patient will benefit from continued OT for improved L UE function. Assessment: Pt presents with wound and surrounding skin as described above. Otherwise, appears to be improving. Pt tolerating L wrist, forearm and hand/finger motion significantly better, including passive stretches with sustained hold. She required re-education on technique of performing passive stretch; impaired vision likely a limiting factor on retaining education on technique. Pt does appear to be improvingwith ROM and better participation and performance with HEP at home. Patient will benefit from continued OT for improved L UE function. Plan: Continue OT POC. KROSALINE Stone, MOT License #[id number] Occupational Therapy [facility] Department of Rehabilitation Services M-W- at [facility] T-Th at [facility] PERSON documented in this encounter Plan of Treatment Date Type Specialty Care Team Description 07/09/2020 Office Visit Internal Medicine Jatin Roldan MD [address] [place] [address] 259203 07/15/2020 Ancillary Visit Occupational Therapy Jen Reyes MD [address] [facility] [address] [place], [place] [address] Anand Hughes OT [address] [place] [address] 07/16/2020 Office Visit [place] [address] [place] [address] 804203 07/23/2020 Office Visit [place] [address] [place] [address] [phone] 07/30/2020 Office Visit Orthopedic Surgery Chandler Armenta MD [address] [place] [address] [phone] Health Maintenance Due Date Last Done Comments [...] of this encounter Implants Implanted Type Area Alternative Education Teacher Device Shelf Model / Identifier Expiration Serial / Date Lot Cancellous Crushed, Community Tissue Ser vices (1 10mm) Freeze Dried 7.5 Cc #1233-12 - [id number] BONE Left: Community Tissue 025 1233-12 / Implanted: Qty: 1 on 05/15/2020 by Jose Armenta MD at [facility] Wrist Services [id number] / NA Component Sfc Outer 28mm Trimed #Sfcoc.28 - Sna Insert Left: [employer] 05/15/2030 SFCOC.28 / Implanted: Qty: 1 on 05/15/2020 by Jose Armenta MD at [facility] Wrist NA / NA Plate Pin 5h Trimed #Rcp5 - S0 PLATE Left: [employer] 05/15/2020 RCP5 / Implanted: Qty: 1 on 05/15/2020 by Jose Armenta MD at [facility] Wrist 0 / 0 Plate Hook 4h Trimed #Whv-4 - Sna PLATE Left: [employer] 05/15/2030 WHV-4 / Implanted: Qty: 1 on 05/15/2020 by Jose Armenta MD at [facility] Wrist NA / NA Plate Wire Form 3h Trimed #Wfp3 - Sna PLATE Left: [employer] 05/15/2030 WFP3 / Implanted: Qty: 1 on 05/15/2020 by Jose Armenta MD at [facility] Wrist NA / NA Plate Peg Ulnar 5h Trimed #Upg-5 - Sna PLATE Left: [employer] 05/15/2030 UPG-5 / Implanted: Qty: 1 on 05/15/2020 by Jose Armenta MD at [facility] Wrist NA / NA Peg 2.1gva76wx Threaded Locking Trimed Ref#Tpeg-12 - Sna Peg L eft: [employer] 05/15/2030 TPEG-12 / Implanted: Qty: 3 on 05/15/2020 by Jose Armenta MD at [facility] Wrist NA / NA Screw 2.8uyd56jn Threaded Locking Peg Trimed Ref#Tpeg-18 - Sna S CREW Left: [employer] 05/15/2030 TPEG-18 / Implanted: Qty: 1 on 05/15/2020 by Jose Armenta MD at [facility] Wrist NA / NA Screw 2.8bvp16ml Threaded Locking Peg Trimed Ref#Tpeg-20 - Sna S CREW Left: [employer] 05/15/2030 TPEG-20 / Implanted: Qty: 1 on 05/15/2020 by Jose Armenta MD at [facility] Wrist NA / NA Screw Cortical 2.3mm X 16mm Trimed #Trx2.3-16 - S0 SCREW Left: [employer] 05/15/2020 TRX2.3-16 / Implanted: Qty: 2 on 05/15/2020 by Jose Armenta MD at [facility] Wrist 0 / 0 Screw Cortical 2.3mm X 20mm Trimed #Trx2.3-20 - S0 SCREW Left: [employer] 05/15/2020 TRX2.3-20 / Implanted: Qty: 1 on 05/15/2020 by Jose Armenta MD at [facility] Wrist 0 / 0 Screw Cortical 2.3mm X 12mm Trimed #Trx2.3-12 - Sna SCREW Left: [employer] 05/15/2030 TRX2.3-12 / Implanted: Qty: 1 on 05/15/2020 by Jose Armenta MD at [facility] Wrist NA / NA Screw 2.8rck61xf Threaded Locking Peg Trimed Ref#Tpeg-14 - Sna S CREW Left: [employer] 05/15/2030 TPEG-14 / Implanted: Qty: 2 on 05/15/2020 by Jose Armenta MD at [facility] Wrist NA / NA Kwire 1.1mm Trimed Ref# Wire-1.1100 - S0 Supply Left: [employer] 05/15/2020 WIRE-1.1/100 / Implanted: Qty: 6 on 05/15/2020 by Jose Armenta MD at [facility] Item Wrist 0 / 0 documented as [...] e / Group Dates AETNA - AETNA [id number] 2019-Prese P O BOX Me dicare Adv MANAGED MEDICARE ADV nt [id number] [place] [address] documented as of this encounter
--- OUTSIDE RECORDS SUMMARY | 2020-08-30 11:04 | XMS REPORT | Summary of Care ---
:1955 Author Organization [facility] Address [address] [place] [address] Care Team Providers Name Role Phone Roseanne Dahl Primary Care Provider Reason for Visit Reason Comments Follow-up (Routine) Status Reason Specialty Diagnoses / Referred By Referred To Procedures Contact Contact Authorized Occupational Diagnoses Closed fracture of distal end of left radius, unspecified fracture morphology, initial encounter Jose Armenta, Therapy Procedures CONSULT/REFERRAL OCCUPATIONAL THERAPY VA OCCUPATIONAL THERAPY EVAL LOW COMPLEX 30 MINS VA OCCUPATIONAL THERAPY EVAL MOD COMPLEX 45 MINS VA OCCUPATIONAL THERAPY EVAL HIGH COMPLEX 60 MINS VA THERAPEUTIC EXERCISES VA NEUROMUSC REE DUCAT,1+ AREAS, EA 15 MIN VA MANUAL THER TECH,1+REGIONS,EA 15 MIN VA THERAPEUT ACTVITY DIRECT PT CONTACT EACH 15 MIN VA SELF-CARE/HOME MGMT TRAINING EACH 15 MINUTES [address] [place] [address] Encounter Details Date Type Department Care Team Description 06/25/2020 Ancillary Visit [facility] Filemon Link MD [address] [facility] [address] [place], [place] [address] Decreased range of motion of left wrist (Primary Dx); Cassandra & Anand Hughes, OT [address] [place] [address] Limitation of joint motion of left hand; [facility] Decreased activities of daily living (ADL); [place] Left wrist pain [address] [place] [address] Allergies No Known Allergiesdocumented as of this encounter (statuses as of 07/02/2020) Medications Medication Sig Dispensed Refills Start Date [...] R directed 3 (three) INJECTION) times daily. Wcmmq-6-XBG-EPA-Fis Take 1 capsule by 0 Active h [...] as of this encounter (statuses as of 07/02/2020) Active Problems Problem Noted Date Abscess of [...] as of this encounter (statuses as of 07/02/2020) Social History Tobacco Use Types Packs/Day Years Used Date Never Smoker Smokeless Tobacco: Never Used Sex Assigned at Date Recorded Not on file COVID-19 Exposure Response Date Recorded In the last month, have you been in contact with No / Unsure 06/25/2020 2:17 PM CASE FITTER someone who was confirmed or suspected to [...] Type volar wrist Orthosis Fabrication Orthosis Education Fitting;Donning;[place];Wear schedule;Precautions Orthosis Comments New volar wrist fabricated for ill fit due to bulky dressing. Wrist positioned in slight extension. Therapeutic Exercise Therapeutic Exercise Activity 1 Active ROM L wrist/forearm and hand/fingers Therapeutic Exercise Activity 2 Gentle passive ROM L hand/fingers and wrist Therapeutic Exercise Acitivity 3 Douglass assist L wrist flexion on elevated foam [...] OT POC. K. ROSALINE Hughes, MOT License #[id number] Occupational Therapy [facility] Department of Rehabilitation Services M-W-F at [facility] T-Th at [facility] FITTER documented in this encounter Plan of Treatment Date Type Specialty Care Team Description 07/08/2020 Ancillary Visit Occupational Therapy Jen Reyes MD [address] [place] [address] 659485 Anand Hughes, OT [address] [place] [address] 07/09/2020 Office Visit Internal Medicine Jatin Roldan MD [address] [place] [address] [phone] 07/15/2020 Ancillary Visit Occupational Therapy Jen Reyes MD [address] [place] [id number] [place] [address] [phone] Anand Hughes, OT [address] [place] [address] 07/16/2020 Office Visit Internal Medicine Jatin Roldan MD [address] [place] [address] [phone] 07/23/2020 Office Visit Internal Medicine Jatin Roldan MD [address] [place] [address] 058583 07/30/2020 Office Visit Orthopedic Surgery Chandler Armenta MD [address] [place] [address] [phone] Health Maintenance Due Date Last Done Comments [...] of this encounter Implants Implanted Type Area Bricklayer Sewer Device Shelf Model / Identifier Expiration Serial / Date Lot Cancellous Crushed, Community Tissue Ser vices (1 10mm) Freeze Dried 7.5 Cc #1233-12 - [id number] BONE Left: Community Tissue 025 1233-12 / Implanted: Qty: 1 on 05/15/2020 by Jose Armenta MD at [facility] Wrist Services [id number] / NA Component Sfc Outer 28mm Trimed #Sfcoc.28/28 - Sna Insert Left: [employer] 05/15/2030 SFCOC.2828 / Implanted: Qty: 1 on 05/15/2020 by Jose Armenta MD at [facility] Wrist NA / NA Plate Pin 5h Trimed #Rcp5 - S0 PLATE Left: [employer] 05/15/2020 RCP5 / Implanted: Qty: 1 on 05/15/2020 by Jose Armenta MD at [facility] Wrist 0 / 0 Plate Hook 4h Trimed #Whv-4 - Sna PLATE Left: [employer] 05/15/2030 WHV-4 / Implanted: Qty: 1 on 05/15/2020 by Jose Armenta MD at [facility] Wrist NA / NA Plate Wire Form 3h Trimed #Wfp3 - Sna PLATE Left: [employer] 05/15/2030 WFP3 / Implanted: Qty: 1 on 05/15/2020 by Jose Armenta MD at [facility] Wrist NA / NA Plate Peg Ulnar 5h Trimed #Upg-5 - Sna PLATE Left: [employer] 05/15/2030 UPG-5 / Implanted: Qty: 1 on 05/15/2020 by Jose Armenta MD at [facility] Wrist NA / NA Peg 2.3ete68fd Threaded Locking Trimed Ref#Tpeg-12 - Sna Peg L eft: [employer] 05/15/2030 TPEG-12 / Implanted: Qty: 3 on 05/15/2020 by Jose Armenta MD at [facility] Wrist NA / NA Screw 2.5ghl31jj Threaded Locking Peg Trimed Ref#Tpeg-18 - Sna S CREW Left: [employer] 05/15/2030 TPEG-18 / Implanted: Qty: 1 on 05/15/2020 by Jose Armenta MD at [facility] Wrist NA / NA Screw 2.2ruo87ua Threaded Locking Peg Trimed Ref#Tpeg-20 - Sna S CREW Left: [employer] 05/15/2030 TPEG-20 / Implanted: Qty: 1 on 05/15/2020 by Jose Armenta MD at [facility] Wrist NA / NA Screw Cortical 2.3mm X 16mm Trimed #Trx2.3-16 - S0 SCREW Left: [employer] 05/15/2020 TRX2.3-16 / Implanted: Qty: 2 on 05/15/2020 by Jose Armenta MD at [facility] Wrist 0 / 0 Screw Cortical 2.3mm X 20mm Trimed #Trx2.3-20 - S0 SCREW Left: [employer] 05/15/2020 TRX2.3-20 / Implanted: Qty: 1 on 05/15/2020 by Jose Armenta MD at [facility] Wrist 0 / 0 Screw Cortical 2.3mm X 12mm Trimed #Trx2.3-12 - Sna SCREW Left: [employer] 05/15/2030 TRX2.3-12 / Implanted: Qty: 1 on 05/15/2020 by Jose Armenta MD at [facility] Wrist NA / NA Screw 2.4ubq91ng Threaded Locking Peg Trimed Ref#Tpeg-14 - Sna S CREW Left: [employer] 05/15/2030 TPEG-14 / Implanted: Qty: 2 on 05/15/2020 by Jose Armenta MD at [facility] Wrist NA / NA Kwire 1.1mm Trimed Ref# Wire-1.1100 - S0 Supply Left: [employer] 05/15/2020 WIRE-1.1/100 / Implanted: Qty: 6 on 05/15/2020 by Jose Armenta MD at [facility] Item Wrist 0 / 0 documented as [...] e / Group Dates AETNA - AETNA [id number] 2019-Prese P O BOX Me dicare Adv MANAGED MEDICARE AD[place] [id number] [place] [address] documented as of this encounter
--- OUTSIDE RECORDS SUMMARY | 2020-08-30 11:04 | XMS REPORT ---
:1955 Author Organization [facility] Address [address] [facility], 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 Problem Insomnia, unspecified G47.00 Active 491764777 type Problem Congestive heart I50.9 Active 36738774 failure, unspecified HF chronicity, unspecified heart failure type Problem Type 2 diabetes E11.9 Active 437269354 mellitus without complications Problem 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 Problem Unspecified visual H54.7 Active 391612545 loss Problem Falls frequently R29.6 Active 307919312 Problem Type 2 diabetes E11.39 Active 00130252790264 mellitus with other diabetic ophthalmic complication Problem Abdominal pain, R10.9 Active 64510523 unspecified abdominal location Problem Psychophysiological F51.04 Active 025988426 insomnia Problem Diarrhea, unspecified R19.7 Active 46318673 type Problem Type 2 diabetes E11.65 Active 115087794111163 mellitus with hyperglycemia Problem Constipation, K59.00 Active 88658585 unspecified constipation type Problem Closed fracture of S62.102S Active 592470178 left wrist, sequela Problem Hyperlipidemia, E78.5 Active 55347762 unspecified hyperlipidemia type Problem Status post fall Z91.81 Active 931859384 Problem Hypothyroidism, E03.9 Active 14339267 unspecified type Problem Insomnia due to G47.01 Active 156287601 medical condition Problem Tremor of both hands R25.1 Active 017006718 Problem Multiple falls R29.6 Active 307426113 Problem 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 Active 254446302 eyes Problem Closed fracture of S52.92XS Active 23482056 left forearm, sequela ALLERGIES No Known Allergies ENCOUNTERS from 1955 to 2020-07-03 Encounter Location Date Provider Diagnosis [facility] [address] [facility] [address], [facility] [place] [address] IMMUNIZATIONS Vaccine Route Administration Date Status FLUZONE [...] REASON FOR REFERRAL No Information VITAL SIGNS No information MEDICATIONS Medication SIG (Take, Route, Start Date End Date Status Frequency, Duration) Atorvastatin Calcium 40 1 tablet in evening Active MG Orally Once a day for 90 days Metoprolol Succinate ER 1 tablet Orally Once a Active 50 MG day for 90 days Jardiance 25 MG 1 tablet Orally Once a 9 Feb, 2021 Ac tive day for 90 days Insulin [...] for 30 days PROCEDURES No Information RESULTS No Results REASON FOR VISIT zofran refill MEDICAL (GENERAL) HISTORY Type Description Date Medical History Hyperlipidemia, unspecified hyperlipidem ia type Medical History Congestive heart failure, unspecified HF chronicity, unspecified heart failure type Medical History Depression with anxiety Medical History Essential (primary) hypertension Medical History 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 Medical History Type [...] No Information FUNCTIONAL STATUS No Information ASSESSMENTS No Information PLAN OF TREATMENT Medication Medication Name Sig [...] 1 tablet Orally Once a day for Feb, 90 days Novolin R 100 UNIT/ML as [...] tablet Orally Twice daily for 90 days Next Appt Details Provider Name:Boris Ramsey, 2020-07-21 11:00 :00 AM, [address] [facility], [address], [place], [address], Provider Name:Roseanne Dahl, 6 08:45:00 AM, [address], [address], [place], [address], Provider Name:Roseanne Dahl, 2020-08-22 3 01:40:00 PM, [address], [address], [place], [address], Insurance Providers Payer Name Payer Payer Insured Patient Coverage Coverage End Address Phone Name Relationship to Start Date Dante e Insured AETNA [phone] Indira Chavis self MEDICARE [id number] [facility] [address]
--- OUTSIDE RECORDS SUMMARY | 2020-08-30 11:04 | XMS REPORT | Summary of Care ---
:1955 Author Organization [facility] Address [address] [place] [address] Care Team Providers Name Role Phone Roseanne Dahl Primary Care Provider Reason for Visit Reason Comments Follow-up (Routine) Status Reason Specialty Diagnoses / Referred By Referred To Procedures Contact Contact Authorized Occupational Diagnoses Closed fracture of distal end of left radius, unspecified fracture morphology, initial encounter Jose Armenta, Therapy Procedures CONSULT/REFERRAL OCCUPATIONAL THERAPY IA OCCUPATIONAL THERAPY EVAL LOW COMPLEX 30 MINS IA OCCUPATIONAL THERAPY EVAL MOD COMPLEX 45 MINS IA OCCUPATIONAL THERAPY EVAL HIGH COMPLEX 60 MINS IA THERAPEUTIC EXERCISES IA NEUROMUSC REE DUCAT,1+ AREAS, EA 15 MIN IA MANUAL THER TECH,1+REGIONS,EA 15 MIN IA THERAPEUT ACTVITY DIRECT PT CONTACT EACH 15 MIN IA SELF-CARE/HOME MGMT TRAINING EACH 15 MINUTES [address] [place] [address] Encounter Details Date Type Department Care Team Description 07/02/2020 Ancillary Visit [facility] Filemon Link MD [address] [facility] [address] [place], [place] [address] Decreased range of motion of left wrist (Primary Dx); Cassandra & Anand Hughes, OT [address] [place] [address] Limitation of joint motion of left hand; [facility] Decreased activities of daily living (ADL); [place] Left wrist pain [address] [place] [phone] Allergies No Known Allergiesdocumented as of this [...] R directed 3 (three) INJECTION) times daily. 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 documented as of this encounter Last Filed Vital Signs Not on filedocumented in this encounter Progress Notes Anand Hughes, OT - 07/02/2020 4:00 PM CST Occupational Therapy Treatment Date: July 02, 2020 Subjective: Pt reported good improvements in pain vs previous session. Diagnosis: 1. Decreased range of motion of left wrist 2. Limitation of joint motion of left hand 3. Decreased activities of daily living (ADL) 4. Left wrist pain Objective: Outpatient OT Treatment Row Name 07/02/20 1700 General Visit Number 4 Chart Reviewed Yes Family/Caregiver Present Yes Orthosis Training Orthosis Comments Pt presents with L volar wrist Therapeutic Exercise Therapeutic Exercise Activity 1 Active ROM L wrist/forearm and hand/fingers Therapeutic Exercise Activity 2 Passive ROM L hand/fingers Therapeutic Exercise Acitivity 3 Passive ROM L forearm and wrist Assessment: Pt presents with impaired ROM L wrist and hand/fingers; significant impaired ROM to all fingers. Shelacks some L forearm supination but WFL. Pt will benefit from increased frequency of ROM HEP including passive stretches with sustained stretch/holds at end range of L wrist and hand fingers. Discussedperforming HEP when she has dressing doffed during both of her dressing changes to increase amount she is able to move wrist and fingers. Pt tolerated active and passive ROM well today. She also appeared receptive to education on performing self- passive ROM, but will likely benefit from reinforcement to ensure understanding. Patient will benefit from continued OT for improved L UE function. Plan: Continue OT POC. K. ROSALINE Hughes, MOT License #[id number] Occupational Therapy [facility] Department of Rehabilitation Services M-W-F at [facility] T-Th at [facility] PAINTER documented in this encounter Plan of Treatment Date Type Specialty Care Team Description 07/08/2020 Ancillary Visit Occupational Therapy Jen Reyes MD [address] [place] [address] [id number] Anand Hughes, OT [address] [place] [address] 07/09/2020 Office Visit Internal Medicine Jatin Roldan MD [address] [place] [address] [phone] 07/15/2020 Ancillary Visit Occupational Therapy Jen Reyes MD [address] [place] [address] [phone] Anand Hughes, OT [address] [place] [address] 07/16/2020 Office Visit Internal Medicine Jatin Roldan MD [address] [place] [address] [phone] 07/23/2020 Office Visit Internal Medicine Jatin Roldan MD [address] [place] [address] 736103 07/30/2020 Office Visit Orthopedic Surgery Chandler Armenta MD [address] [place] [address] [phone] Health Maintenance Due Date Last Done Comments [...] of this encounter Implants Implanted Type Area Vp Genetic Device Shelf Model / Identifier Expiration Serial / Date Lot Cancellous Crushed, Community Tissue Ser vices (1 10mm) Freeze Dried 7.5 Cc #1233-12 - [id number] BONE Left: Community Tissue 025 1233-12 / Implanted: Qty: 1 on 05/15/2020 by Jose Armenta MD at [facility] Wrist Services [id number] / NA Component Sfc Outer 28mm Trimed #Sfcoc.28/28 - Sna Insert Left: [employer] 05/15/2030 SFCOC.2828 / Implanted: Qty: 1 on 05/15/2020 by Jose Armenta MD at [facility] Wrist NA / NA Plate Pin 5h Trimed #Rcp5 - S0 PLATE Left: [employer] 05/15/2020 RCP5 / Implanted: Qty: 1 on 05/15/2020 by Jose Armenta MD at [facility] Wrist 0 / 0 Plate Hook 4h Trimed #Whv-4 - Sna PLATE Left: [employer] 05/15/2030 WHV-4 / Implanted: Qty: 1 on 05/15/2020 by Jose Armenta MD at [facility] Wrist NA / NA Plate Wire Form 3h Trimed #Wfp3 - Sna PLATE Left: [employer] 05/15/2030 WFP3 / Implanted: Qty: 1 on 05/15/2020 by Jose Armenta MD at [facility] Wrist NA / NA Plate Peg Ulnar 5h Trimed #Upg-5 - Sna PLATE Left: [employer] 05/15/2030 UPG-5 / Implanted: Qty: 1 on 05/15/2020 by Jsoe Armenta MD at [facility] Wrist NA / NA Peg 2.8glp72xa Threaded Locking Trimed Ref#Tpeg-12 - Sna Peg L eft: [employer] 05/15/2030 TPEG-12 / Implanted: Qty: 3 on 05/15/2020 by Jose Armenta MD at [facility] Wrist NA / NA Screw 2.8ryn67pt Threaded Locking Peg Trimed Ref#Tpeg-18 - Sna S CREW Left: [employer] 05/15/2030 TPEG-18 / Implanted: Qty: 1 on 05/15/2020 by Jose Armenta MD at [facility] Wrist NA / NA Screw 2.9fsa08qd Threaded Locking Peg Trimed Ref#Tpeg-20 - Sna S CREW Left: [employer] 05/15/2030 TPEG-20 / Implanted: Qty: 1 on 05/15/2020 by Jose Armenta MD at [facility] Wrist NA / NA Screw Cortical 2.3mm X 16mm Trimed #Trx2.3-16 - S0 SCREW Left: [employer] 05/15/2020 TRX2.3-16 / Implanted: Qty: 2 on 05/15/2020 by Jose Armenta MD at [facility] Wrist 0 / 0 Screw Cortical 2.3mm X 20mm Trimed #Trx2.3-20 - S0 SCREW Left: [employer] 05/15/2020 TRX2.3-20 / Implanted: Qty: 1 on 05/15/2020 by Jose Armenta MD at [facility] Wrist 0 / 0 Screw Cortical 2.3mm X 12mm Trimed #Trx2.3-12 - Sna SCREW Left: [employer] 05/15/2030 TRX2.3-12 / Implanted: Qty: 1 on 05/15/2020 by Jose Armenta MD at [facility] Wrist NA / NA Screw 2.5hde59mp Threaded Locking Peg Trimed Ref#Tpeg-14 - Sna S CREW Left: [employer] 05/15/2030 TPEG-14 / Implanted: Qty: 2 on 05/15/2020 by Jose Armenta MD at [facility] Wrist NA / NA Kwire 1.1mm Trimed Ref# Wire-1.1100 - S0 Supply Left: [employer] 05/15/2020 WIRE-1.1100 / Implanted: Qty: 6 on 05/15/2020 by Jose Armenta MD at [facility] Item Wrist 0 / 0 documented [...] e / Group Dates AETNA - AETNA [id number] 2019-Prese [address] BOX Me dicare Adv MANAGED MEDICARE ADV nt [id number] [place] [address] documented as of this encounter
--- OUTSIDE RECORDS SUMMARY | 2020-08-30 11:04 | XMS REPORT | Summary of Care ---
:1955 Author Organization [facility] Address [address] [place] [address] Care Team Providers Name Role Phone Nabila Roseanne L Primary Care Provider Reason for Visit Reason Comments Follow-up (Routine) Status Reason Specialty Diagnoses / Referred By Referred To Procedures Contact Contact Authorized Occupational Diagnoses Closed fracture of distal end of left radius, unspecified fracture morphology, initial encounter Jose Armenta, Therapy Procedures CONSULT/REFERRAL OCCUPATIONAL THERAPY OH OCCUPATIONAL THERAPY EVAL LOW COMPLEX 30 MINS OH OCCUPATIONAL THERAPY EVAL MOD COMPLEX 45 MINS OH OCCUPATIONAL THERAPY EVAL HIGH COMPLEX 60 MINS OH THERAPEUTIC EXERCISES OH NEUROMUSC REE DUCAT,1+ AREAS, EA 15 MIN OH MANUAL THER TECH,1+REGIONS,EA 15 MIN OH THERAPEUT ACTVITY DIRECT PT CONTACT EACH 15 MIN OH SELF-CARE/HOME MGMT TRAINING EACH 15 MINUTES [address] [place] [address] Encounter Details Date Type Department Care Team Description 07/08/[address] [facility] Filemon Reyes MD [address] [facility] [id number] [place], [place] [address] Decreased range of motion of left wrist (Primary Dx); Occupational Therapy- Anand Hughes, OT [address] [place] [address] Limitation of joint motion of left hand; [place] Decreased activities of dav y living (ADL); Professional Office Left [address] [place] [address] Allergies No Known Allergiesdocumented as of this encounter (statuses as of 07/11/2020) Medications Medication Sig Dispensed Refills Start Date [...] R directed 3 (three) INJECTION) times daily. 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 Left wrist pain Objective: Left Hand AROM L Index MCP 0-90 (degrees): (-5-7) L Index PIP 0-100 (degrees): (-35-45) L Long MCP 0-90 (degrees): (-5-7) L Long PIP 0-100 (degrees): (-38-50) L Ring MCP 0-90 (degrees): (0-4) L Ring PIP 0-100 (degrees): (-40-53) L Little MCP 0-90 (degrees): (0-5) L Little PIP 0-100 (degrees): (-44-60) Left Wrist Active Range of Motion L Wrist AROM Flexion: 40 L Wrist AROM Extension: 14 Outpatient OT Treatment Row Name 07/08/20 1400 [...] improved L UE function. Plan: Continue OT KEENA. 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 documented in this encounter Plan of Treatment Date Type Specialty Care Team Description 07/15/2020 Ancillary Visit Occupational Therapy Jen Reyes MD [address] [facility] WL[address] [place] [address] [phone] Anand Hughes OT [address] [place] [address] 07/16/2020 Office Visit Internal Medicine Jatin Roldan MD [address] [address] [phone] 07/23/2020 Office Visit Internal Medicine Jatin Roldan MD [address] [address] [phone] 07/30/2020 Office Visit Orthopedic Surgery Chandler Armenta MD [address] [place] [address] [phone] Health Maintenance Due Date Last Done Comments [...] of this encounter Implants Implanted Type Area Scoop Machine Operator Device Shelf Model / Identifier Expiration Serial / Date Lot Cancellous Crushed, Community Tissue Ser vices (1 10mm) Freeze Dried 7.5 Cc #1233-12 - [id number] BONE Left: Community Tissue 025 1233-12 / Implanted: Qty: 1 on 05/15/2020 by Jose Armenta MD at [facility] Wrist Services [id number] / NA Component Sfc Outer 28mm Trimed #Sfcoc. - Sna Insert Left: [employer] 05/15/2030 SFCOC. / Implanted: Qty: 1 on 05/15/2020 by oJse Armenta MD at [facility] Wrist NA / NA Plate Pin 5h Trimed #Rcp5 - S0 PLATE Left: [employer] 05/15/2020 RCP5 / Implanted: Qty: 1 on 05/15/2020 by Jose Armenta MD at [facility] Wrist 0 / 0 Plate Hook 4h Trimed #Whv-4 - Sna PLATE Left: [employer] 05/15/2030 WHV-4 / Implanted: Qty: 1 on 05/15/2020 by Jose Armenta MD at [facility] Wrist NA / NA Plate Wire Form 3h Trimed #Wfp3 - Sna PLATE Left: [employer] 05/15/2030 WFP3 / Implanted: Qty: 1 on 05/15/2020 by Jose Armneta MD at [facility] Wrist NA / NA Plate Peg Ulnar 5h Trimed #Upg-5 - Sna PLATE Left: [employer] 05/15/2030 UPG-5 / Implanted: Qty: 1 on 05/15/2020 by Jose Armenta MD at [facility] Wrist NA / NA Peg 2.4cga76ku Threaded Locking Trimed Ref#Tpeg-12 - Sna Peg L eft: [employer] 05/15/2030 TPEG-12 / Implanted: Qty: 3 on 05/15/2020 by Jose Armenta MD at [facility] Wrist NA / NA Screw 2.7vnw10nf Threaded Locking Peg Trimed Ref#Tpeg-18 - Sna S CREW Left: [employer] 05/15/2030 TPEG-18 / Implanted: Qty: 1 on 05/15/2020 by Jose Armenta MD at [facility] Wrist NA / NA Screw 2.6uvj09bq Threaded Locking Peg Trimed Ref#Tpeg-20 - Sna S CREW Left: [employer] 05/15/2030 TPEG-20 / Implanted: Qty: 1 on 05/15/2020 by Jose Armenta MD at [facility] Wrist NA / NA Screw Cortical 2.3mm X 16mm Trimed #Trx2.3-16 - S0 SCREW Left: [employer] 05/15/2020 TRX2.3-16 / Implanted: Qty: 2 on 05/15/2020 by Jose Armenta MD at [facility] Wrist 0 / 0 Screw Cortical 2.3mm X 20mm Trimed #Trx2.3-20 - S0 SCREW Left: [employer] 05/15/2020 TRX2.3-20 / Implanted: Qty: 1 on 05/15/2020 by Jose Armenta MD at [facility] Wrist 0 / 0 Screw Cortical 2.3mm X 12mm Trimed #Trx2.3-12 - Sna SCREW Left: [employer] 05/15/2030 TRX2.3-12 / Implanted: Qty: 1 on 05/15/2020 by Jose Armenta MD at [facility] Wrist NA / NA Screw 2.4fwl34et Threaded Locking Peg Trimed Ref#Tpeg-14 - Sna S CREW Left: [employer] 05/15/2030 TPEG-14 / Implanted: Qty: 2 on 05/15/2020 by Jose Armenta MD at [facility] Wrist NA / NA Kwire 1.1mm Trimed Ref# Wire-1.1/100 - S0 Supply Left: [employer] 05/15/2020 WIRE-1.1/100 / Implanted: Qty: 6 on 05/15/2020 by Jose Armenta MD at [facility] Item Wrist 0 / 0 documented [...] e / Group Dates AETNA - AETNA [id number] 2019-Prese P O BOX Me dicare Adv MANAGED MEDICARE ADV nt [id number] [place] [address] documented as of this encounter
--- OUTSIDE RECORDS SUMMARY | 2020-08-30 11:05 | XMS REPORT | Summary of Care ---
:1955 Author Organization [facility] Address [address] [place] [address] Care Team Providers Name Role Phone Jamiejustin Roseanne L Primary Care Provider Reason for [...] OR SELF-CARE/HOME MGMT TRAINING EACH 15 MINUTES [address] [place] [address] Encounter Details Date Type Department Care Team Description 07/22/2020 Ancillary Visit [facility] Jose Armenta MD [address] [place] [address] Decreased range of motion of left wrist (Primary Dx); Occupational Therapy- Anand Hughes, OT [address] [place] [address] Limitation of joint motion of left hand; Jaxon Decreased activities of dav y living (ADL); Professional Office Left [address] [place] [address] Allergies No Known Allergiesdocumented as of this encounter (statuses as of 07/22/2020) Medications Medication Sig Dispensed Refills Start Date [...] R directed 3 (three) INJECTION) times daily. Kvvax-5-FCV-EPA-Fis Take 1 capsule by 0 Active h Oil (FISH OIL) mouth daily. 1,000 mg (120 mg-180 mg) Cap aspirin 81 mg EC Take 81 mg by mouth 0 Active tablet daily. amitriptyline 10 mg Take 1 tablet by 30 tablet 1 06/25/2020 Active tabletIndications: mouth every evening 0 Closed fracture of for 30 days. distal end of left radius, unspecified fracture morphology, initial encounter doxycycline hyclate Take 1 capsule by 28 capsule 0 07/16/2020 Active 100 mg mouth every 12 0 capsuleIndications: (twelve) hours for Wound infection 14 days. 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 documented as of this encounter Last Filed Vital Signs Not on filedocumented in this encounter Progress Notes Anand Hughes, OT - 07/22/2020 10:30 AM CST Occupational Therapy Treatment Date: July 22, 2020 Subjective: Pain Assessment Pain Assessment: No/denies pain(at rest. No rating given when increased pain noted.) Pain Location: Wrist Pain Orientation: Left Diagnosis: 1. Decreased range of motion of left wrist 2. Limitation of joint motion of left hand 3. Decreased activities of daily living (ADL) 4. Left wrist pain Objective: Outpatient OT Treatment Row Name 07/22/20 1200 General Visit Number 6 Chart Reviewed Yes Family/Caregiver Present Yes Pain Assessment Pain Assessment No/denies pain at rest. No rating given when increased pain noted. Pain Location Wrist Pain Orientation Left Therapeutic Exercise Therapeutic Exercise Activity 1 Active ROM L wrist/forearm and hand/fingers Therapeutic Exercise Activity 2 Passive ROM L hand/fingers Therapeutic Exercise Acitivity 3 Passive ROM L forearm and wrist Therapeutic Exercise Activity 4 Blocking exercises L hand/fingers Manual Therapy Manual Therapy Activity 2 Scar massage at volar and dorsal scars Assessment: Pt presents with continued stiffness of L forearm, wrist and fingers. She is progressing well, especially with wrist and forearm motion. Pt will benefit from frequency of therex HEP of every ~1-2 hoursshe is awake. She may also benefit from gentle strengthening program as she appears that she will tolerate this better now. Will assess appropriateness of this next session. Plan: Continue OT POC. K. ROSALINE Hughes, MOT License #[id number] Occupational Therapy [facility] Department of Rehabilitation Services M-W-F at [facility] T-Th at [facility] ERY CUTTER MACHINE documented in this encounter Plan of Treatment Date Type Specialty Care Team Description 07/23/2020 Office Visit Internal Medicine Jatin Roldan MD [address] [address] 07/30/2020 Office Visit Orthopedic Surgery Chandler Armenta MD [address] [place], [place] [address] 07/31/2020 Ancillary Visit Occupational Therapy Kelton Armenta MD [address] [place], [place] [address] Anand Hughes OT [address] [place] [address] Health Maintenance Due Date Last Done Comments [...] of this encounter Implants Implanted Type Area Asbestos Wire Finisher Device Shelf Model / Identifier Expiration Serial / Date Lot Cancellous Crushed, Community Tissue Ser vices (1 10mm) Freeze Dried 7.5 Cc #1233-12 - [id number] BONE Left: Community Tissue 025 1233-12 / Implanted: Qty: 1 on 05/15/2020 by Jose Armenta MD at [facility] Wrist Services [id number] / NA Component Sfc Outer 28mm Trimed #Sfcoc. - Sna Insert Left: [employer] 05/15/2030 SFCOC. / Implanted: Qty: 1 on 05/15/2020 by Jose Armenta MD at [facility] Wrist NA / NA Plate Pin 5h Trimed #Rcp5 - S0 PLATE Left: [employer] 05/15/2020 RCP5 / Implanted: Qty: 1 on 05/15/2020 by Jose Armenta MD at [facility] Wrist 0 / 0 Plate Hook 4h Trimed #Whv-4 - Sna PLATE Left: [employer] 05/15/2030 WHV-4 / Implanted: Qty: 1 on 05/15/2020 by Jose Armenta MD at [facility] Wrist NA / NA Plate Wire Form 3h Trimed #Wfp3 - Sna PLATE Left: [employer] 05/15/2030 WFP3 / Implanted: Qty: 1 on 05/15/2020 by Jose Armenta MD at [facility] Wrist NA / NA Plate Peg Ulnar 5h Trimed #Upg-5 - Sna PLATE Left: [employer] 05/15/2030 UPG-5 / Implanted: Qty: 1 on 05/15/2020 by Jose Armenta MD at [facility] Wrist NA / NA Peg 2.5ryl96mc Threaded Locking Trimed Ref#Tpeg-12 - Sna Peg L eft: [employer] 05/15/2030 TPEG-12 / Implanted: Qty: 3 on 05/15/2020 by Jose Armenta MD at [facility] Wrist NA / NA Screw 2.8mmw98rn Threaded Locking Peg Trimed Ref#Tpeg-18 - Sna S CREW Left: [employer] 05/15/2030 TPEG-18 / Implanted: Qty: 1 on 05/15/2020 by Jose Armenta MD at [facility] Wrist NA / NA Screw 2.8chp59yf Threaded Locking Peg Trimed Ref#Tpeg-20 - Sna S CREW Left: [employer] 05/15/2030 TPEG-20 / Implanted: Qty: 1 on 05/15/2020 by Jose Armenta MD at [facility] Wrist NA / NA Screw Cortical 2.3mm X 16mm Trimed #Trx2.3-16 - S0 SCREW Left: [employer] 05/15/2020 TRX2.3-16 / Implanted: Qty: 2 on 05/15/2020 by Jose Armenta MD at [facility] Wrist 0 / 0 Screw Cortical 2.3mm X 20mm Trimed #Trx2.3-20 - S0 SCREW Left: [employer] 05/15/2020 TRX2.3-20 / Implanted: Qty: 1 on 05/15/2020 by Jose Armenta MD at [facility] Wrist 0 / 0 Screw Cortical 2.3mm X 12mm Trimed #Trx2.3-12 - Sna SCREW Left: [employer] 05/15/2030 TRX2.3-12 / Implanted: Qty: 1 on 05/15/2020 by Jose Armenta MD at [facility] Wrist NA / NA Screw 2.6tww29wo Threaded Locking Peg Trimed Ref#Tpeg-14 - Sna S CREW Left: [employer] 05/15/2030 TPEG-14 / Implanted: Qty: 2 on 05/15/2020 by Jose Armenta MD at [facility] Wrist NA / NA Kwire 1.1mm Trimed Ref# Wire-1.1/100 - S0 Supply Left: [employer] 05/15/2020 WIRE-1.1/100 / Implanted: Qty: 6 on 05/15/2020 by Jose Armenta MD at [facility] Item Wrist 0 / 0 documented as [...] e / Group Dates AETNA - AETNA [id number] 2019-[employer] Me dicare Adv MANAGED MEDICARE ADV nt [id number] [place] [address] documented as of this encounter
--- OUTSIDE RECORDS SUMMARY | 2020-08-30 11:05 | XMS REPORT ---
:[address] 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 Problem Insomnia, unspecified G47.00 Active 983526892 type Problem Congestive heart I50.9 Active 76880502 failure, unspecified HF chronicity, unspecified heart failure type Problem Type 2 diabetes E11.9 Active 949873733 mellitus without complications Problem 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 Problem Unspecified visual H54.7 Active 450640402 loss Problem Falls frequently R29.6 Active 028701153 Problem Type 2 diabetes E11.39 Active 22803966199888 mellitus with other diabetic ophthalmic complication Problem Abdominal pain, R10.9 Active 67494957 unspecified abdominal location Problem Psychophysiological F51.04 Active 385601429 insomnia Problem Diarrhea, unspecified R19.7 Active 63657815 type Problem Type 2 diabetes E11.65 Active 622935608539241 mellitus with hyperglycemia Problem Constipation, K59.00 Active 20743200 unspecified constipation type Problem Closed fracture of S62.102S Active 879470928 left wrist, sequela Problem Hyperlipidemia, E78.5 Active 79035979 unspecified hyperlipidemia type Problem Status post fall Z91.81 Active 517768870 Problem Hypothyroidism, E03.9 Active 76520494 unspecified type Problem Insomnia due to G47.01 Active 601295771 medical condition Problem Tremor of both hands R25.1 Active 407595824 Problem Multiple falls R29.6 Active 972471998 Problem 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 Active 365216995 eyes Problem Closed fracture of S52.92XS Active 06226902 left forearm, sequela ALLERGIES No Known Allergies ENCOUNTERS from 1955 to 2020-07-22 Encounter Location Date Provider [facility] [address] [place], [place] Hypo thyroidism, Family Medicine [address], unspeci fied type E03.9 ; [place] [address] Type 2 diabete s mellitus with diabetic nephropathy E11 .21 ; Hyperlipidemia, unspecified hyperlipidemia type E78.5 ; [facility] current use of insulin Z79.4 and Type 2 diabetes mellit us with hyperglycemia E 11.65 IMMUNIZATIONS Vaccine Route Administration Date Status Pneumovax (PPSV23) IM Intramuscular Jul 21, 2020 Administered FLUZONE HIGH DOSE OVER 65 IM Intramuscular Jul 21, 2020 Admin istered FLUZONE HIGH DOSE OVER 65 IM Intramuscular [...] No Information VITAL SIGNS Height 62 in Jun, Weight 198.0 lbs Jun, Temperature 97.4 degrees Fahrenheit Jun, BMI 36.21 kg/m2 Jun, Oximetry 95 % Jun, Respiratory Rate 16 /min Jun, Blood pressure systolic 133 mm Hg Jun, Blood pressure diastolic 74 mm Hg Jun, MEDICATIONS Medication SIG (Take, Route, Notes Start Date End Date Status Frequency, Duration) Zofran 4 MG 1 tablet Orally twice Jan, Active a day prn for 10 days Atorvastatin Calcium 40 1 tablet in evening Active MG Orally Once a day for 90 days Levothyroxine Sodium 75 1 tablet on an empty Active MCG stomach in the morning Orally Once a day for 90 days Insulin Syringe 31G X as directed Jul, Active 01/04" 1 ML subcutaneous Use with Insulin N & Insulin R for 90 days Metoprolol Succinate ER 1 tablet Orally Once a Active 50 MG day for 90 days Levemir FlexTouch 100 70 units Subcutaneous Not-Taking UNIT/ML daily for 90 days Lisinopril 40 MG 1 tablet Orally Once a Active day for 90 days Citalopram Hydrobromide 1 tablet Orally Once a Active 40 MG day for 90 days Trazodone HCl 100 mg 1 tablet at bedtime as Active needed for sleep Orally Once a day for 90 days Furosemide 20 MG 1 tablet Oral Once a Active day for 90 days Insulin Regular Human as directed Ac tive (Conc) 500 UNIT/ML Subcutaneous as directed Methocarbamol 750 MG Oral for 30 No t-Taking Novolin N 100 UNIT/ML as directed Ac tive Subcutaneous 65 units once daily for 90 Bydureon 2 MG as directed Active Subcutaneous weekly for 30 days Belsomra 10 MG 1 tablet at bedtime as May, Unknown needed Orally Once a day for 30 days Novolin R 100 UNIT/ML as directed Ac tive subcutaneous 22 units once daily with a meal; may use up to TID qac for 90 days Liothyronine Sodium 25 1 tablet on an empty Active MCG stomach Orally Once a day for 90 days BusPIRone HCl 5 MG 1 tablet Orally Twice Active daily for 90 days Insulin NPH (Human) as directed Acti ve (Isophane) 100 UNIT/ML Subcutaneous as directed Jardiance 25 MG 1 tablet Orally Once a Active day for 90 days PROCEDURES No Information RESULTS No Results REASON FOR VISIT Est/Prev Millender pt [phone]-NEEDS WHEELCHAIR MEDICAL (GENERAL) HISTORY Type Description Date Medical History Hyperlipidemia, unspecified hyperlipidem ia type Medical History Congestive heart failure, unspecified HF chronicity, unspecified heart failure type Medical History Depression with anxiety Medical History Essential (primary) hypertension Medical History [facility] current use of insulin Medical History Type [...] STATUS No Information ASSESSMENTS Encounter Date Diagnosis Assessment Notes Treatment Notes Treatm ent Clinical Notes Jun, Hypothyroidism, unspecified type (ICD-10 - E03.9) Jun, Type 2 diabetes current A1c 6.7 mellitus with using novolin 22 U diabetic nephropathy BID and daily (ICD-10 - E11.21) jardiance 25 m g. AM FS 120 range. -will try switching to GLP1 for both cardiovascular health and ease of use, titrate down insuline -2 week f/u for medication tollerance, discussed SE. Jun, Hyperlipidemia, unspecified hyperlipidemia type (ICD-10 - E78.5) Jun, intermediate manager current use of insulin (ICD-10 - Z79.4) Jun, Type 2 diabetes mellitus with hyperglycemia (ICD-10 - E11.65) PLAN OF TREATMENT Medication Medication Name Sig Start Date Stop Date Bydureon 2 MG as directed Subcutaneous weekly for 30 days Novolin R 100 UNIT/ML as directed subcutaneous 22 units once daily with a meal; may use up to TID qac for 90 days Jardiance 25 MG 1 tablet Orally Once a day for 90 days Treatment Notes Assessment Notes Clinical Notes Type 2 diabetes mellitus with current A1c 6.7 using novolin 22 U diabetic nephropathy BID and daily jardiance 25 mg.AM FS 120 range.-will try switching to GLP1 for both cardiovascular health and ease of use, titrate down insuline-2 week f/u for medication tollerance, discussed SE. Next Appt Details 2 Weeks Reason: Provider Name:Boris Mustafa, 2020-08-04 10:40 :00 AM, [address], [address], [place], [address], Insurance Providers Payer Name Payer Payer Insured Patient Coverage Coverage End Address Phone Name Relationship to Start Date Dante e Insured AETNA [phone] Indira Chavis self MEDICARE [id number] [facility] [id number]
--- OUTSIDE RECORDS SUMMARY | 2020-08-30 11:06 | XMS REPORT | Summary of Care ---
:1955 Author Organization [facility] Address [address] [place] [address] Care Team Providers Name Role Phone Roseanne Dahl Primary Care Provider Reason for Visit Reason Comments Follow-up 4 week Other (Routine) Status Reason Specialty Diagnoses / Referred By Referred To Procedures Contact Contact Authorized Orthopedic Surgery Diagnoses Closed fracture of distal end of left radius, unspecified fracture morphology, initial encounter Gasper Shelton, Gasper Shelton, Procedures Discharge Follow-up: Specialty Provider GASPER SHELTON; 2 Weeks MD PET[place] [address] [place] [phone] Phone: Fax: Encounter Details Date Type Department Care Team Description 07/30/2020 Office Visit [facility] Gasper Shelton MD Closed fracture of Orthopaedic Surgery- [address] [place] [address] di stal end of [facility] radius, unspecified 0 [place], [place] fractur e morphology, [facility] [address] initial encounter [place], [place] [phone] (Primary Dx) [address] [phone] Allergies No Known Allergiesdocumented as of this encounter (statuses as of 07/30/2020) Medications Medication Sig Dispensed Refills Start Date [...] R directed 3 (three) INJECTION) times daily. Wgsnv-2-JYH-EPA-Fis Take 1 capsule by 0 Active h Oil (FISH OIL) mouth daily. 1,000 mg (120 mg-180 mg) Cap aspirin 81 mg EC Take 81 mg by mouth 0 Active tablet daily. doxycycline hyclate Take 1 capsule by 28 capsule 0 07/16/2020 Active 100 mg mouth every 12 0 capsuleIndications: (twelve) hours for Wound infection 14 days. 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 documented as of this encounter Last Filed Vital Signs Vital Sign Reading Time Taken Comments Blood Pressure - - Pulse - - Temperature 35.9 C (96.7 F) 07/30/2020 1:10 PM MANAGER EXCHANGE Respiratory Rate - - Oxygen Saturation - - Inhaled Oxygen Concentration - - Weight 93.5 kg (206 lb 1.6 oz) 07/30/2020 1:10 PM MANAGER EXCHANGE Height - - Body Mass Index 37.7 05/15/2020 9:38 AM CDT documented in this encounter Progress Notes Martínez Henson MD - 07/30/2020 2:00 PM CST Ortho Hand Clinic Note 07/30/2020 13:29 Procedure: Left hand distal radius and ulna [...] the wound care specialists.Has some trouble sleeping. Interval history 07/30/2020 Patient returns for clinic follow up. Reports that she has been going to wound care and OT weekly. Has been working on ROM at home but is unable to make a full fist. Has been wearing brace. Past Medical History: Diagnosis Date Blindness of [...] OR Location Medications: Current Outpatient Medications: doxycycline hyclate 100 mg capsule, Take 1 capsule by mouth every 12 (twelve) hours for 14 days., Disp: 28 capsule, Rfl: 0 aspirin 81 mg EC tablet, Take 81 mg by mouth daily., Disp: , Rfl: insulin NPH human isophane (NOVOLIN N SC), inject 65 Units under the skin daily., Disp: , Rfl: insulin regular, human (NOVOLIN R INJECTION), Inject 20 Units as directed 3 (three) times daily., Disp: , Rfl: Vzxnj-9-WCY-EPA-Fish Oil (FISH OIL) 1,000 mg (120 mg-180 [...] file Gets together: Not on file Attends quaker service: Not on file Active member of [...] tight or new jar.: 5 Do heavy automatic outsole cutter.: 5 Carry a shopping bag or briefcase.: [...] comfortably on RA Cardiology: RRR L UE: Skin: diffuse skin maceration of hand, most prominent in the palm. Superficial maceration wound to 1st webspace. Improved Appearance of Limb: Mild appropriate swelling throughout hand and digits. Dorsal incisions c/d/i with no signs of infection Motor intact to intrinsics and extrinsics, ROM: Unable to make a fist , pain with wrist flex/ext Sensory Intact to Light Touch, Brisk Capillary Refill Imaging: XR L wrist: little healing response noted, HW in appropriate alignment ASSESSMENT: Indira Chavis is a 65 year old female s/p left hand distal radius and ulna ORIF of 05/15 with superficial palmar skin maceration, healing PLAN: I have discussed the patient's physical exam and reviewed their x-rays and imaging with them in detail. All questions have been answered. We have talked about all the treatment options and have agreed upon: - c/w OT protocol - c/w Wound care, appreciate recs, may benefit from wet to dry dressings - Recommend Vit D, Ca, Vit C, sunlight for wound healing - Activity modification to minimize pain - NSAIDs prn for pain - Follow up in 4 weeks with xrays - Condition and plans were discussed with patient, who expressed understanding and is agreeable to the plan. - All questions were answered, concerns addressed; risks and benefits were discussed. - Patient was instructed to schedule earlier appointment if symptoms worsen. -Restrictions: NWB KATELIN Henson MD Orthopedic Surgery PGY3 documented in this encounter Plan of Treatment Date Type Specialty Care Team Description 07/30/2020 Office Visit Internal Medicine Jatin Roldan MD [address] [phone] 07/31/2020 Ancillary Visit Occupational Therapy Kelton Shelton MD [address] [place], [place] [id number] Anand Hughes, OT [address] [place] [address] Health Maintenance Due Date Last Done Comments [...] of this encounter Implants Implanted Type Area Respiratory Director Device Shelf Model / Identifier Expiration Serial / Date Lot Cancellous Crushed, Community Tissue Ser vices (1 10mm) Freeze Dried 7.5 Cc #1233-12 - [id number] BONE Left: Community Tissue 025 1233-12 / Implanted: Qty: 1 on 05/15/2020 by Gasper Shelton MD at [facility] [id number] / NA Component Sfc Outer 28mm Trimed #Sfcoc. - Sna Insert Left: [employer] 05/15/2030 SFCOC. / Implanted: Qty: 1 on 05/15/2020 by Gasper Shelton MD at [facility] Wrist NA / NA Plate Pin 5h Trimed #Rcp5 - S0 PLATE Left: [employer] 05/15/2020 RCP5 / Implanted: Qty: 1 on 05/15/2020 by Gasper Shelton MD at [facility] Wrist 0 / 0 Plate Hook 4h Trimed #Whv-4 - Sna PLATE Left: [employer] 05/15/2030 WHV-4 / Implanted: Qty: 1 on 05/15/2020 by Gasper Shelton MD at [facility] Wrist NA / NA Plate Wire Form 3h Trimed #Wfp3 - Sna PLATE Left: [employer] 05/15/2030 WFP3 / Implanted: Qty: 1 on 05/15/2020 by Gasper Shelton MD at [facility] Wrist NA / NA Plate Peg Ulnar 5h Trimed #Upg-5 - Sna PLATE Left: [employer] 05/15/2030 UPG-5 / Implanted: Qty: 1 on 05/15/2020 by Gasper Shelton MD at [facility] Wrist NA / NA Peg 2.0fmr33oh Threaded Locking Trimed Ref#Tpeg-12 - Sna Peg L eft: [employer] 05/15/2030 TPEG-12 / Implanted: Qty: 3 on 05/15/2020 by Gasper Shelton MD at [facility] Wrist NA / NA Screw 2.1eaw63km Threaded Locking Peg Trimed Ref#Tpeg-18 - Sna S CREW Left: [employer] 05/15/2030 TPEG-18 / Implanted: Qty: 1 on 05/15/2020 by Gasper Shelton MD at [facility] Wrist NA / NA Screw 2.0yss12ee Threaded Locking Peg Trimed Ref#Tpeg-20 - Sna S CREW Left: [employer] 05/15/2030 TPEG-20 / Implanted: Qty: 1 on 05/15/2020 by Gasper Shelton MD at [facility] Wrist NA / NA Screw Cortical 2.3mm X 16mm Trimed #Trx2.3-16 - S0 SCREW Left: [employer] 05/15/2020 TRX2.3-16 / Implanted: Qty: 2 on 05/15/2020 by Gasper Shelton MD at [facility] Wrist 0 / 0 Screw Cortical 2.3mm X 20mm Trimed #Trx2.3-20 - S0 SCREW Left: [employer] 05/15/2020 TRX2.3-20 / Implanted: Qty: 1 on 05/15/2020 by Gasper Shelton MD at [facility] Wrist 0 / 0 Screw Cortical 2.3mm X 12mm Trimed #Trx2.3-12 - Sna SCREW Left: [employer] 05/15/2030 TRX2.3-12 / Implanted: Qty: 1 on 05/15/2020 by Gasper Shelton MD at [facility] Wrist NA / NA Screw 2.9rjm59le Threaded Locking Peg Trimed Ref#Tpeg-14 - Sna S CREW Left: [employer] 05/15/2030 TPEG-14 / Implanted: Qty: 2 on 05/15/2020 by Gasper Shelton MD at [facility] Wrist NA / NA Kwire 1.1mm Trimed Ref# Wire-1.1/100 - S0 Supply Left: [employer] 05/15/2020 WIRE-1.1/100 / Implanted: Qty: 6 on 05/15/2020 by Gapser Shelton MD at [facility] Item Wrist 0 / 0 documented as of this encounter Results Not on filedocumented in this encounter Visit Diagnoses Diagnosis Closed fracture of distal end of left ra dius, unspecified fracture morphology, initial encounter - Primary documented in this encounter Insurance Payer Benefit Plan Subscriber ID Effective Phone Address Typ e / Group Dates AETNA - AETNA [id number] 2019-[employer] Me dicare Adv MANAGED MEDICARE ADV [place] [id number] [place] [address] documented as of this encounter"
--- OUTSIDE RECORDS SUMMARY | 2020-08-30 11:06 | XMS REPORT | Summary of Care ---
:1955 Author Organization [facility] Address [address] [place] [address] Care Team Providers Name Role Phone Roseanne Dahl Primary Care Provider Reason for Referral Radiology Services (Routine) Status Reason Specialty Diagnoses / Referred By Referred To Procedures Contact Contact New Request Diagnostic Diagnoses Closed fracture of distal end of left radius, unspecified fracture morphology, initial encounter Jose Armenta, Radiology Procedures XR WRIST 3+ VW LEFT [address] [place] [address] Encounter Details Date Type Department Care Team Description 07/29/2020 Abstract [facility] Martínez Henson MD Closed fracture of Orthopaedic Surgery- [address] [facility]. distal end of [place], [place] radius, unspecified [address] [facility] [address] fracture morphology, [facility] [phone] initial encounter [place], [place] (Prim[place] Dx) [address] Allergies No Known Allergiesdocumented as of this encounter (statuses as of 07/29/2020) Medications Medication Sig Dispensed Refills Start Date [...] R directed 3 (three) INJECTION) times daily. 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 documented as of this encounter Last Filed Vital Signs Not on filedocumented in this encounter Plan of Treatment Date Type Specialty Care Team Description 07/29/2020 Appointment Radiology Jose Armenta MD [address] [place] [address] [phone] 07/30/2020 Office Visit Orthopedic Surgery Chandler Armenta MD [address] [place] [address] [phone] 07/30/2020 Office Visit Internal Medicine Jatin Roldan MD [facility] [id number] 07/31/2020 Ancillary Visit Occupational Therapy Kelton Armenta MD [address] [place] [address] [phone] Anand Hughes, [address] [address] Name Type Priority Associated Diagnoses Order S chedule XR WRIST 3+ VW LEFT IMAGING Routine Closed fracture of di stal Expected: 07/29/2020, end of left radius, Expires: 07/29/2021 unspecified fracture morphology, initial encounter Health Maintenance Due Date Last Done Comments [...] of this encounter Implants Implanted Type Area Bone Char Operator Device Shelf Model / Identifier Expiration Serial / Date Lot Cancellous Crushed, [facility] Tissue Ser vices (1 10mm) Freeze Dried 7.5 Cc #1233-12 - [id number] BONE Left: Community [employer] 025 1233-12 / Implanted: Qty: 1 on 05/15/2020 by Jose Armenta MD at [facility] [employer] [id number] / NA Component Sfc Outer 28mm Trimed #Sfcoc.2828 - Sna Insert Left: [employer] 05/15/2030 SFCOC.2828 / Implanted: Qty: 1 on 05/15/2020 by Jose Armenta MD at [facility] Wrist NA / NA Plate Pin 5h Trimed #Rcp5 - S0 PLATE Left: [employer] 05/15/2020 RCP5 / Implanted: Qty: 1 on 05/15/2020 by Jose Armenta MD at [facility] Wrist 0 / 0 Plate Hook 4h Trimed #Whv-4 - Sna PLATE Left: [employer] 05/15/2030 WHV-4 / Implanted: Qty: 1 on 05/15/2020 by Jose Armenta MD at [facility] Wrist NA / NA Plate Wire Form 3h Trimed #Wfp3 - Sna PLATE Left: [employer] 05/15/2030 WFP3 / Implanted: Qty: 1 on 05/15/2020 by Jose Armenta MD at [facility] Wrist NA / NA Plate Peg Ulnar 5h Trimed #Upg-5 - Sna PLATE Left: [employer] 05/15/2030 UPG-5 / Implanted: Qty: 1 on 05/15/2020 by Jose Armenta MD at [facility] Wrist NA / NA Peg 2.2znv41lw Threaded Locking Trimed Ref#Tpeg-12 - Sna Peg L eft: [employer] 05/15/2030 TPEG-12 / Implanted: Qty: 3 on 05/15/2020 by Jose Armenta MD at [facility] Wrist NA / NA Screw 2.2ccm38hw Threaded Locking Peg Trimed Ref#Tpeg-18 - Sna S CREW Left: [employer] 05/15/2030 TPEG-18 / Implanted: Qty: 1 on 05/15/2020 by Jose Armenta MD at [facility] Wrist NA / NA Screw 2.9gnp31gd Threaded Locking Peg Trimed Ref#Tpeg-20 - Sna S CREW Left: [employer] 05/15/2030 TPEG-20 / Implanted: Qty: 1 on 05/15/2020 by Jose Armenta MD at [facility] Wrist NA / NA Screw Cortical 2.3mm X 16mm Trimed #Trx2.3-16 - S0 SCREW Left: [employer] 05/15/2020 TRX2.3-16 / Implanted: Qty: 2 on 05/15/2020 by Jose Armenta MD at [facility] Wrist 0 / 0 Screw Cortical 2.3mm X 20mm Trimed #Trx2.3-20 - S0 SCREW Left: [employer] 05/15/2020 TRX2.3-20 / Implanted: Qty: 1 on 05/15/2020 by Jose Armenta MD at [facility] Wrist 0 / 0 Screw Cortical 2.3mm X 12mm Trimed #Trx2.3-12 - Sna SCREW Left: [employer] 05/15/2030 TRX2.3-12 / Implanted: Qty: 1 on 05/15/2020 by Jose Armenta MD at [facility] Wrist NA / NA Screw 2.4jxm40rt Threaded Locking Peg Trimed Ref#Tpeg-14 - Sna S CREW Left: [employer] 05/15/2030 TPEG-14 / Implanted: Qty: 2 on 05/15/2020 by Jose Armenta MD at [facility] Wrist NA / NA Kwire 1.1mm Trimed Ref# Wire-1. - S0 Supply Left: [employer] 05/15/2020 WIRE-. / Implanted: Qty: 6 on 05/15/2020 by Jose Armenta MD at [facility] Item Wrist 0 / 0 documented as of this encounter Results Not on filedocumented in this encounter Visit Diagnoses Diagnosis Closed fracture of distal end of left ra dius, unspecified fracture morphology, initial encounter - Primary documented in this encounter Insurance Payer Benefit Plan Subscriber ID Effective Phone Address Typ e / Group Dates AETNA - AETNA [id number] 2019-Loco gardner Adv MANAGED MEDICARE ADV nt [id number] [place] [address] documented as of this encounter
--- OUTSIDE RECORDS SUMMARY | 2020-08-30 11:06 | XMS REPORT | Summary of Care ---
:1955 Author Organization [facility] [employer] Address [address] [place] [address] Care Team Providers Name Role Phone Roseanne [...] GASPER SHELTON; 2 Weeks MD [address] [place] [address] [place] [phone] Phone: Fax: Encounter Details Date Type Department Care Team Description 07/30/2020 Office Visit [facility] Gasper Shelton MD Closed fracture of Orthopaedic Surgery- [address] [place] [address] di stal end of [facility] radius, unspecified 0 [place], [place] fractur e morphology, [facility] [address] initial encounter [place], [place] [phone] (Primary Dx) [address] [phone] Allergies No Known Allergiesdocumented as of this [...] R directed 3 (three) INJECTION) times daily. Lcmcb-7-YYS-EPA-Fis Take 1 capsule by 0 Active h [...] with No / Unsure 07/22/2020 10:41 AM RADIO PERSONALITY someone who was confirmed or suspected to have Coronavirus / COVID-19? documented as of this encounter Last Filed Vital Signs Vital Sign Reading Time Taken Comments Blood Pressure - - Pulse - - Temperature 35.9 C (96.7 F) 07/30/2020 1:10 PM RADIO PERSONALITY Respiratory Rate - - Oxygen Saturation - - Inhaled Oxygen Concentration - - Weight 93.5 kg (206 lb 1.6 oz) 07/30/2020 1:10 PM RADIO PERSONALITY Height - - Body Mass Index 37.7 [...] 3 (three) times daily., Disp: , Rfl: Piaih-9-HUV-EPA-Fish Oil (FISH OIL) 1,000 mg (120 mg-180 [...] file Gets together: Not on file Attends denominational service: Not on file Active member of [...] tight or new jar.: 5 Do heavy pantomimist.: 5 Carry a shopping bag or briefcase.: [...] Visit Internal Medicine Jatin Roldan MD [address] [phone] 07/31/2020 Ancillary Visit Occupational Therapy Kelton Shelton MD [address] [place], [place] [id number] Anand Hughes, OT [address] [place] [address] Health Maintenance Due Date Last Done Comments [...] of this encounter Implants Implanted Type Area Baster Hand Device Shelf Model / Identifier Expiration Serial / Date Lot Cancellous Crushed, [employer] Ser vices (1 10mm) Freeze Dried 7.5 Cc #1233-12 - [id number] BONE Left: [employer] 025 1233-12 / Implanted: Qty: 1 on 05/15/2020 by Gasper Shelton MD at [facility] [id number] / NA Component Sfc Outer 28mm Trimed #Sfcoc. - Sna Insert Left: [employer] 05/15/2030 SFCOC. / Implanted: Qty: 1 on 05/15/2020 by Gasper Shelton MD at [facility] Wrist NA / NA Plate Pin 5h Trimed #Rcp5 - S0 PLATE Left: [employer] 05/15/2020 RCP5 / Implanted: Qty: 1 on 05/15/2020 by Gasper Shelton MD at [facility] Wrist 0 / 0 Plate Hook 4h Trimed #Whv-4 - Sna PLATE Left: [employer] 05/15/2030 WHV-4 / Implanted: Qty: 1 on 05/15/2020 by Gasper Shelton MD at [facility] Wrist NA / NA Plate Wire Form 3h Trimed #Wfp3 - Sna PLATE Left: [employer] 05/15/2030 WFP3 / Implanted: Qty: 1 on 05/15/2020 by Gasper Shelton MD at [facility] Wrist NA / NA Plate Peg Ulnar 5h Trimed #Upg-5 - Sna PLATE Left: [employer] 05/15/2030 UPG-5 / Implanted: Qty: 1 on 05/15/2020 by Gasper Shelton MD at [facility] Wrist NA / NA Peg 2.7zlh76oz Threaded Locking Trimed Ref#Tpeg-12 - Sna Peg L eft: [employer] 05/15/2030 TPEG-12 / Implanted: Qty: 3 on 05/15/2020 by Gasper Shelton MD at [facility] Wrist NA / NA Screw 2.3lji08we Threaded Locking Peg Trimed Ref#Tpeg-18 - Sna S CREW Left: [employer] 05/15/2030 TPEG-18 / Implanted: Qty: 1 on 05/15/2020 by Gasper Shelton MD at [facility] Wrist NA / NA Screw 2.3cko41qu Threaded Locking Peg Trimed Ref#Tpeg-20 - Sna S CREW Left: [employer] 05/15/2030 TPEG-20 / Implanted: Qty: 1 on 05/15/2020 by Gasper Shelton MD at [facility] Wrist NA / NA Screw Cortical 2.3mm X 16mm Trimed #Trx2.3-16 - S0 SCREW Left: [employer] 05/15/2020 TRX2.3-16 / Implanted: Qty: 2 on 05/15/2020 by Gasper Shelton MD at [facility] Wrist 0 / 0 Screw Cortical 2.3mm X 20mm Trimed #Trx2.3-20 - S0 SCREW Left: [employer] 05/15/2020 TRX2.3-20 / Implanted: Qty: 1 on 05/15/2020 by Gasper Shelton MD at [facility] Wrist 0 / 0 Screw Cortical 2.3mm X 12mm Trimed #Trx2.3-12 - Sna SCREW Left: [employer] 05/15/2030 TRX2.3-12 / Implanted: Qty: 1 on 05/15/2020 by Gasper Shelton MD at [facility] Wrist NA / NA Screw 2.4ivo50dw Threaded Locking Peg Trimed Ref#Tpeg-14 - Sna S CREW Left: [employer] 05/15/2030 TPEG-14 / Implanted: Qty: 2 on 05/15/2020 by Gasper Shelton MD at [facility] Wrist NA / NA Kwire 1.1mm Trimed Ref# Wire-1.1/100 - S0 Supply Left: [employer] 05/15/2020 WIRE-1.1/100 / Implanted: Qty: 6 on 05/15/2020 by Gasper Shelton MD at [facility] Item Wrist 0 / 0 documented as of this encounter Results Not on filedocumented in this encounter Visit Diagnoses Diagnosis Closed fracture of distal end of left ra dius, unspecified fracture morphology, initial encounter - Primary documented in this encounter Insurance Payer Benefit Plan Subscriber ID Effective Phone Address Typ e / Group Dates AETNA - AETNA [id number] 2019-Loco XIONG Me dicare Adv MANAGED MEDICARE ADV nt [id number] [place] [address] documented as of this encounter"
--- OUTSIDE RECORDS SUMMARY | 2020-08-30 11:07 | XMS REPORT | Summary of Care ---
:1955 Author Organization [facility] Address [address] [place] [address] Care Team Providers Name Role Phone Roseanne Dahl Primary Care Provider Reason for Referral Radiology Services (Routine) Status Reason Specialty Diagnoses / Referred By Referred To Procedures Contact Contact New Request Diagnostic Diagnoses Closed fracture of distal end of left radius, unspecified fracture morphology, initial encounter Jose Armenta, Radiology Procedures XR WRIST 3+ VW LEFT [address] [place] [address] Reason for Visit Radiology Services (Routine) Status Reason Specialty Diagnoses / Referred By Referred To Procedures Contact Contact New Request Diagnostic Diagnoses Closed fracture of distal end of left radius, unspecified fracture morphology, initial encounter Jose Armenta, Radiology Procedures XR WRIST 3+ VW LEFT [address] [place] [address] Encounter Details Date Type Department Care Team Description 07/30/[address] [facility] Jose Colon ace, MD Arrived [facility] [address] [place] [address] [phone] Allergies No Known Allergiesdocumented as of this encounter (statuses as of 07/31/2020) Medications Medication Sig Dispensed Refills Start Date End Date Status acetaminophen-codein TAKE 2 TABLETS BY 0 04/28/2020 Active e 300-30 mg tablet MOUTH EVERY 6 HOURS [...] tablet MOUTH EVERY 12 HOURS NEEDED metoprolol succinate 0 05/04/2020 Active XL 50 mg 24 hr tablet meloxicam 7.5 mg TAKE 1 TABLET BY 0 04/26/2020 Active tablet MOUTH ONCE DAILY WITH FOOD lisinopriL 40 mg TAKE 1 TABLET BY 0 03/25/2020 Active tablet MOUTH ONCE DAILY FOR 90 DAYS levothyroxine 88 mcg 0 05/04/2020 Active tablet levothyroxine 75 mcg 0 05/04/2020 Active tablet NOVOLIN N NPH U-100 INJECT 65 UNITS 0 03/21/2020 Active INSULIN 100 unit/mL SUBCUTANEOUSLY ONCE injection DAILY DIRECTED FOR 90 DAYS insulin NPH human inject 65 Units 0 Active isophane (NOVOLIN N under the skin SC) daily. insulin regular, Inject 20 Units as 0 Active human (NOVOLIN R directed 3 (three) INJECTION) times daily. Rbeac-0-IVF-EPA-Fish Take 1 capsule by 0 Active Oil (FISH OIL) 1,000 mouth daily. mg (120 mg-180 mg) Cap aspirin 81 mg EC Take 81 mg by mouth 0 Active tablet daily. 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 documented as of this encounter Last Filed Vital Signs Not on filedocumented in this encounter Plan of Treatment Date Type Specialty Care Team Description 07/31/2020 Ancillary Visit Occupational Therapy Kelton Armenta MD [address] [place] [address] [phone] Anand Hughes, [address] [address] 08/07/2020 Office Visit Internal Medicine Jatin Roldan MD [address] [place] [address] [phone] 08/27/2020 Office Visit Orthopedic Surgery Chandler Armenta MD [address] [place] [address] [phone] Health Maintenance Due Date Last Done Comments [...] of this encounter Implants Implanted Type Area Sailmaker Device Shelf Model / Identifier Expiration Serial / Date Lot Cancellous Crushed, [employer] Ser vices (1 10mm) Freeze Dried 7.5 Cc #1233-12 - [id number] BONE Left: [employer] 025 1233-12 / Implanted: Qty: 1 on 05/15/2020 by Jose Armenta MD at [facility] [employer] [id number] / NA Component Sfc Outer 28mm Trimed #Sfcoc. - Sna Insert Left: [employer] 05/15/2030 SFCOC. / Implanted: Qty: 1 on 05/15/2020 by Jose Armenta MD at [facility] Wrist NA / NA Plate Pin 5h Trimed #Rcp5 - S0 PLATE Left: [employer] 05/15/2020 RCP5 / Implanted: Qty: 1 on 05/15/2020 by Jose Armenta MD at [facility] Wrist 0 / 0 Plate Hook 4h Trimed #Whv-4 - Sna PLATE Left: [employer] 05/15/2030 WHV-4 / Implanted: Qty: 1 on 05/15/2020 by Jose Armenta MD at [facility] Wrist NA / NA Plate Wire Form 3h Trimed #Wfp3 - Sna PLATE Left: [employer] 05/15/2030 WFP3 / Implanted: Qty: 1 on 05/15/2020 by Jose Armenta MD at [facility] Wrist NA / NA Plate Peg Ulnar 5h Trimed #Upg-5 - Sna PLATE Left: [employer] 05/15/2030 UPG-5 / Implanted: Qty: 1 on 05/15/2020 by Jose Armenta MD at [facility] Wrist NA / NA Peg 2.4ylt31nk Threaded Locking Trimed Ref#Tpeg-12 - Sna Peg L eft: [employer] 05/15/2030 TPEG-12 / Implanted: Qty: 3 on 05/15/2020 by Jose Armenta MD at [facility] Wrist NA / NA Screw 2.8xml88uu Threaded Locking Peg Trimed Ref#Tpeg-18 - Sna S CREW Left: [employer] 05/15/2030 TPEG-18 / Implanted: Qty: 1 on 05/15/2020 by Jose Armenta MD at [facility] Wrist NA / NA Screw 2.7bgr84pq Threaded Locking Peg Trimed Ref#Tpeg-20 - Sna S CREW Left: [employer] 05/15/2030 TPEG-20 / Implanted: Qty: 1 on 05/15/2020 by Jose Armenta MD at [facility] Wrist NA / NA Screw Cortical 2.3mm X 16mm Trimed #Trx2.3-16 - S0 SCREW Left: [employer] 05/15/2020 TRX2.3-16 / Implanted: Qty: 2 on 05/15/2020 by Jose Armenta MD at [facility] Wrist 0 / 0 Screw Cortical 2.3mm X 20mm Trimed #Trx2.3-20 - S0 SCREW Left: [employer] 05/15/2020 TRX2.3-20 / Implanted: Qty: 1 on 05/15/2020 by Jose Armenta MD at [facility] Wrist 0 / 0 Screw Cortical 2.3mm X 12mm Trimed #Trx2.3-12 - Sna SCREW Left: [employer] 05/15/2030 TRX2.3-12 / Implanted: Qty: 1 on 05/15/2020 by Jose Armenta MD at [facility] Wrist NA / NA Screw 2.0ova53nm Threaded Locking Peg Trimed Ref#Tpeg-14 - Sna S CREW Left: [employer] 05/15/2030 TPEG-14 / Implanted: Qty: 2 on 05/15/2020 by Jsoe Armenta MD at [facility] Wrist NA / NA Kwire 1.1mm Trimed Ref# Wire-1.1/100 - S0 Supply Left: [employer] 05/15/2020 WIRE-1.1/100 / Implanted: Qty: 6 on 05/15/2020 by Jose Armenta MD at [facility] Item Wrist 0 / 0 documented as of this encounter Procedures Procedure Name Priority Date/Time Associated Diagnosis Comme nts XR WRIST 3+ VW LEFT Routine 07/30/2020 1:21 PM Closed fractur e of Results for this SMOOTH PLATER distal end of left procedure are in radius, unspecified the resu lts fracture morphology, section . initial encounter documented in this encounter Results XR WRIST 3+ VW LEFT (07/30/2020 1:21 PM SMOOTH PLATER) Specimen Impressions Performed At PACS/VR/DOSE 1. No hardware complication. Minimal p eriosteal new bone formation. RL: 1105 1 :37 PM Narrative Performed At This result has an attachment that is no t available. HISTORY: clinic left wrist fracture PACS/VR/DOSE COMPARISON: None FINDINGS: 3 views of the left wrist show screw, plate, and wire fixation of the distal radius and ulna. Hardware is intact. There are dorsal fracture fragments which are fixated on the lateral view. Bones are demineralized. There is extensive soft tissue swelling. The carpal cara alex grossly intact. There is minimal periosteal new bone formation. Procedure Note [facility], Radiant Results Inft User - 2019 1:38 PM SMOOTH PLATER HISTORY: clinic left wrist fracture COMPARISON: None FINDINGS: 3 views of the left wrist show screw, pl ate, and wire fixation of the distal radius and ulna. Hardware is inta ct. There are dorsal fracture fragments which are fixated on the later al view. Bones are demineralized. There is extensive soft tissue swelling. The carpal bones grossly intact. There is minimal periosteal new bone for mation. IMPRESSION 1. No hardware complication. Minimal pe riosteal new bone formation. RL: 1105 Performing Organization Address City/State/Zipcode Phone Number PACS/VR/DOSE documented in this encounter Visit Diagnoses Diagnosis Closed fracture of distal end of left ra dius, unspecified fracture morphology, initial encounter documented in this encounter Insurance Payer Benefit Plan Subscriber ID Effective Phone Address Typ e / Group Dates AETNA - AETNA [id number] 2019-[employer] [address] Me dicare Adv MANAGED MEDICARE ADV nt [id number] [place] [address] documented as of this encounter
--- OUTSIDE RECORDS SUMMARY | 2020-08-30 11:07 | XMS REPORT ---
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 Problem Insomnia, unspecified G47.00 Active 824680695 type Problem Congestive heart I50.9 Active 64659936 failure, unspecified HF chronicity, unspecified heart failure type Problem Type 2 diabetes E11.9 Active 967349168 mellitus without complications Problem 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 Problem Unspecified visual H54.7 Active 777202220 loss Problem Falls frequently R29.6 Active 999039172 Problem Type 2 diabetes E11.39 Active 70287351442014 mellitus with other diabetic ophthalmic complication Problem Abdominal pain, R10.9 Active 43394868 unspecified abdominal location Problem Psychophysiological F51.04 Active 694769707 insomnia Problem Diarrhea, unspecified R19.7 Active 97173212 type Problem Type 2 diabetes E11.65 Active 296543416258441 mellitus with hyperglycemia Problem Constipation, K59.00 Active 84510191 unspecified constipation type Problem Closed fracture of S62.102S Active 143379062 left wrist, sequela Problem Hyperlipidemia, E78.5 Active 05076188 unspecified hyperlipidemia type Problem Status post fall Z91.81 Active 219413979 Problem Hypothyroidism, E03.9 Active 01882235 unspecified type Problem Insomnia due to G47.01 Active 600252948 medical condition Problem Tremor of both hands R25.1 Active 197651930 Problem Multiple falls R29.6 Active 857345156 Problem 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 Active 320919454 eyes Problem Closed fracture of S52.92XS Active 39908176 left forearm, sequela ALLERGIES No Known Allergies ENCOUNTERS from 1955 to 2020-08-10 Encounter Location Date Provider Diagnosis [facility] [address] [facility] [address] 14 Jul, 2020 Boris Mustafa Type 2 diabetes Family Medicine [place], [place] mellitus with diabetic [address] nephropathy E11 .21 ; Type 2 diabetes mellitus with hyperglycemia E 11.65 and Hypothyroid ism, unspecified typ e E03.9 IMMUNIZATIONS Vaccine Route Administration Date Status Pneumovax [...] No Information VITAL SIGNS Height 62 in 14 Jul, 2020 Weight 198 lbs Jul, Temperature 97.2 degrees Fahrenheit Jul, BMI 36.21 kg/m2 Jul, Oximetry 96 % Jul, Respiratory Rate 16 /min Jul, Blood pressure systolic 137 mm Hg Jul, Blood pressure diastolic 79 mm Hg Jul, MEDICATIONS Medication SIG (Take, Route, Notes Start Date End Date Status Frequency, Duration) Liothyronine Sodium 25 1 tablet on an empty Active MCG stomach Orally Once a day for 90 days Methocarbamol 750 MG Oral for 30 No t-Taking Novolin N 100 UNIT/ML as directed Ac tive Subcutaneous 65 units once daily for 90 Insulin NPH (Human) as directed Acti ve (Isophane) 100 UNIT/ML Subcutaneous as directed Levothyroxine Sodium 75 1 tablet on an empty Active MCG stomach in the morning Orally Once a day for 90 days Levemir FlexTouch 100 70 units Subcutaneous Not-Taking UNIT/ML daily for 90 days Vitamin C Active Insulin Syringe 31G X as directed Jul, Active 01/04" 1 ML subcutaneous Use with Insulin N & Insulin R for 90 days Calcium Active Zofran 4 MG 1 tablet Orally twice Jan, Active a day prn for 10 days Atorvastatin Calcium 40 1 tablet in evening Active MG Orally Once a day for 90 days BusPIRone HCl 5 MG 1 tablet Orally Twice Active daily for 90 days Metoprolol Succinate ER 1 tablet Orally Once a Active 50 MG day for 90 days Insulin Regular Human as directed Ac tive (Conc) 500 UNIT/ML Subcutaneous as directed Citalopram Hydrobromide 1 tablet Orally Once a Active 40 MG day for 90 days Novolin R 100 UNIT/ML as directed Ac tive subcutaneous 22 units once daily with a meal; may use up to TID qac for 90 days Bydureon 2 MG as directed Active Subcutaneous weekly for 30 days Lisinopril 40 MG 1 tablet Orally Once a Active day for 90 days Trazodone HCl 100 mg 1 tablet at bedtime as Active needed for sleep Orally Once a day for 90 days Furosemide 20 MG 1 tablet Oral Once a Active day for 90 days Jardiance 25 MG 1 tablet Orally Once a Active day for 90 days Vitamin D3 Active Belsomra 10 MG 1 tablet at bedtime as May, Unknown needed Orally Once a day for 30 days PROCEDURES No Information RESULTS No Results REASON FOR VISIT 2 week follow up ([phone],will need wheelchair) MEDICAL (GENERAL) HISTORY Type Description Date Medical History Hyperlipidemia, unspecified hyperlipidem ia type Medical History Congestive heart failure, unspecified HF chronicity, unspecified heart failure type Medical History Depression with anxiety Medical History Essential (primary) hypertension Medical History correction current use of insulin Medical History Type [...] Notes Treatment Notes Treatm ent Clinical Notes Jul, Type 2 diabetes mellitus with diabetic nephropathy (ICD-10 - E11.21) Jul, Type 2 diabetes currently on NPH 68 mellitus with U AM and 22 regular hyperglycemia insuline before (ICD-10 - E11.65) dinner. will change to NPH 35 AM and PM before meals. d/c regular insuline. premeal FS and 2 hour post meal finger stick. A1C 6.7 in , however daughter reports several instances of hypoglycemic events. DMII supplies fax. Jul, Hypothyroidism, TSH 0.075 in unspecified type october2019. (ICD-10 - E03.9) currently on levothyroixine 75 mcg daily with liothyroinine 25 mg. will refill synthroid and recheck TSH next visit. PLAN OF TREATMENT Medication Medication Name Sig Start Date Stop Date Levothyroxine Sodium 75 MCG 1 tablet on an empty stomach in the morning Orally Once a day for 90 days Jardiance 25 MG 1 tablet Orally Once a day for 90 days Treatment Notes Assessment Notes Clinical Notes Type 2 diabetes mellitus with currently on NPH 68 U AM and 2 2 hyperglycemia regular insuline before dinner.will change to NPH 35 AM and PM before meals.d/c regular insuline.premeal FS and 2 hour post meal finger stick.A1C 6.7 in , however daughter reports several instances of hypoglycemic events.DMII supplies fax. Hypothyroidism, unspecified type TSH 0.075 in october2019.curr ently on levothyroixine 75 mcg daily with liothyroinine 25 mg.will refill synthroid and recheck TSH next visit. Next Appt Details Provider Name:Boris Mustafa, 2020-08-19 04:00 :00 PM, [address], [address], [place], [address], Insurance Providers Payer Name Payer Payer Insured Patient Coverage Coverage End Address Phone Name Relationship to Start Date Dante e Insured AETNA [phone] Indira Chavis self MEDICARE [id number] [facility] [id number]
--- OUTSIDE RECORDS SUMMARY | 2020-08-30 11:07 | XMS REPORT | Summary of Care ---
:1955 Author Organization [facility] Address [address] [place] [address] Care Team Providers Name Role Phone Roseanne Dahl Primary Care Provider Reason for Referral Radiology Services (Routine) Status Reason Specialty Diagnoses / Referred By Referred To Procedures Contact Contact New Request Diagnostic Diagnoses Closed fracture of distal end of left radius, unspecified fracture morphology, initial encounter Jose Armenta, Radiology Procedures XR WRIST 3+ VW LEFT [address] [place] [address] Encounter Details Date Type Department Care Team Description 08/27/2020 Abstract [facility] Martínez Henson MD Closed fracture of Orthopaedic Surgery- [address] [facility]. distal end of left [place], [place] radius, unspecified [address] [facility] [address] fracture morphology, [facility] [phone] initial encounter [place], [place] ([place]x) [address] Allergies No Known Allergiesdocumented as of this encounter (statuses as of 08/27/2020) Medications Medication Sig Dispensed Refills Start Date [...] R directed 3 (three) INJECTION) times daily. Joiqt-4-VPA-EPA-Fish Take 1 capsule by 0 Active Oil (FISH OIL) 1,000 mouth daily. mg (120 mg-180 mg) Cap aspirin 81 mg EC Take 81 mg by mouth 0 Active tablet daily. 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 documented as of this encounter Last Filed Vital Signs Not on filedocumented in this encounter Plan of Treatment Date Type Specialty Care Team Description 08/27/2020 Office Visit Orthopedic Surgery Abena Stovall, CLINT [address] [facility] [address] [place], [place] [id number] 08/27/2020 Office Visit Internal Medicine Jatin Roldan MD [address] [facility] [address] [place], [place] [address] 09/02/2020 Ancillary Visit Occupational Therapy Shay Hughes, OT [address] [place] [address] Name Type Priority Associated Diagnoses Order S chedule XR WRIST 3+ VW LEFT IMAGING Routine Closed fracture of di stal Expected: 08/27/2020, end of left radius, Expires: 08/27/2021 unspecified fracture morphology, initial encounter Health Maintenance [...] of this encounter Implants Implanted Type Area Estate Manager Device Shelf Model / Identifier Expiration Serial / Date Lot Cancellous Crushed, [facility] Tissue Ser vices (1 10mm) Freeze Dried 7.5 Cc #1233-12 - [id number] BONE Left: Community [employer] 025 1233-12 / Implanted: Qty: 1 on 05/15/2020 by Jose Armenta MD at [facility] [employer] [id number] / NA Component Sfc Outer 28mm Trimed #Sfcoc. - Sna Insert Left: [employer] 05/15/2030 SFCOC. / Implanted: Qty: 1 on 05/15/2020 by Jose Armenta MD at [facility] Wrist NA / NA Plate Pin 5h Trimed #Rcp5 - S0 PLATE Left: [employer] 05/15/2020 RCP5 / Implanted: Qty: 1 on 05/15/2020 by Jose Armenta MD at [facility] Wrist 0 / 0 Plate Hook 4h Trimed #Whv-4 - Sna PLATE Left: [employer] 05/15/2030 WHV-4 / Implanted: Qty: 1 on 05/15/2020 by Jose Armenta MD at [facility] Wrist NA / NA Plate Wire Form 3h Trimed #Wfp3 - Sna PLATE Left: [employer] 05/15/2030 WFP3 / Implanted: Qty: 1 on 05/15/2020 by Jose Armenta MD at [facility] Wrist NA / NA Plate Peg Ulnar 5h Trimed #Upg-5 - Sna PLATE Left: [employer] 05/15/2030 UPG-5 / Implanted: Qty: 1 on 05/15/2020 by Jose Armenta MD at [facility] Wrist NA / NA Peg 2.6yir39sp Threaded Locking Trimed Ref#Tpeg-12 - Sna Peg L eft: [employer] 05/15/2030 TPEG-12 / Implanted: Qty: 3 on 05/15/2020 by Jose Armenta MD at [facility] Wrist NA / NA Screw 2.4lju64ph Threaded Locking Peg Trimed Ref#Tpeg-18 - Sna S CREW Left: [employer] 05/15/2030 TPEG-18 / Implanted: Qty: 1 on 05/15/2020 by Jose Armenta MD at [facility] Wrist NA / NA Screw 2.3jkq67bi Threaded Locking Peg Trimed Ref#Tpeg-20 - Sna S CREW Left: [employer] 05/15/2030 TPEG-20 / Implanted: Qty: 1 on 05/15/2020 by Jose Armenta MD at [facility] Wrist NA / NA Screw Cortical 2.3mm X 16mm Trimed #Trx2.3-16 - S0 SCREW Left: [employer] 05/15/2020 TRX2.3-16 / Implanted: Qty: 2 on 05/15/2020 by Jose Armenta MD at [facility] Wrist 0 / 0 Screw Cortical 2.3mm X 20mm Trimed #Trx2.3-20 - S0 SCREW Left: [employer] 05/15/2020 TRX2.3-20 / Implanted: Qty: 1 on 05/15/2020 by Jose Armenta MD at [facility] Wrist 0 / 0 Screw Cortical 2.3mm X 12mm Trimed #Trx2.3-12 - Sna SCREW Left: [employer] 05/15/2030 TRX2.3-12 / Implanted: Qty: 1 on 05/15/2020 by Jose Armenta MD at [facility] Wrist NA / NA Screw 2.0hsc23hf Threaded Locking Peg Trimed Ref#Tpeg-14 - Sna S CREW Left: [employer] 05/15/2030 TPEG-14 / Implanted: Qty: 2 on 05/15/2020 by Jose Armenta MD at [facility] Wrist NA / NA Kwire 1.1mm Trimed Ref# Wire-1.1/100 - S0 Supply Left: [employer] 05/15/2020 WIRE-1.1/100 / Implanted: Qty: 6 on 05/15/2020 by Jose Armenta MD at [facility] Item Wrist 0 / 0 documented as of this encounter Results Not on filedocumented in this encounter Visit Diagnoses Diagnosis Closed fracture of distal end of left ra dius, unspecified fracture morphology, initial encounter - Primary documented in this encounter Insurance Payer Benefit Plan Subscriber ID Effective Phone Address Typ e / Group Dates AETNA - AETNA [id number] 2019-[employer]imes MANAGED MEDICARE ADV nt [id number] [place] [address] documented as of this encounter
--- OUTSIDE RECORDS SUMMARY | 2020-08-30 11:07 | XMS REPORT | Summary of Care ---
:1955 Author Organization [facility] Address [address] [place] [address] Care Team Providers Name Role Phone Roseanne [...] OR SELF-CARE/HOME MGMT TRAINING EACH 15 MINUTES [address] [place] [address] Encounter Details Date Type Department Care Team Description 07/31/2020 Ancillary Visit [facility] Jose Armenta MD [address] [place] [address] Decreased range of motion of left wrist (Primary Dx); Occupational Therapy- Anand Hughes, OT [address] [place] [address] Limitation of joint motion of left hand; Jaxon Decreased activities of dav y living (ADL); Professional Office Left i [address] Butler [address] [place] [phone] Allergies No Known Allergiesdocumented as of [...] R directed 3 (three) INJECTION) times daily. 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 documented as of this encounter Last Filed Vital Signs Not on filedocumented in this encounter Progress Notes Anand Hughes, OT - 07/31/2020 10:30 AM CST Occupational Therapy Treatment Date: July 31, 2020 Subjective: Pain Assessment Pain Score: 0 - No pain(at rest) Diagnosis: 1. Decreased range of motion of left wrist 2. Limitation of joint motion of left hand 3. Decreased activities of daily living (ADL) 4. Left wrist pain Objective: Dressing doffed and donned for session (ROM). Orthosis was dried and sanitized. Outpatient OT Treatment Row Name 07/31/20 1800 Orthosis Training Orthosis Comments Pt presents with L volar wrist Therapeutic Exercise Therapeutic Exercise Activity 1 Active ROM L wrist/forearm and hand/fingers Therapeutic Exercise Activity 2 Passive ROM L hand/fingers Therapeutic Exercise Acitivity 3 Passive ROM L forearm and wrist Therapeutic Exercise Activity 4 Blocking exercises L hand/fingers Manual Therapy Manual Therapy Activity 1 Edema massage on dorsal hand/wrist region Row Name 07/31/20 1000 Pain Assessment Pain Score 0 - No pain at rest Assessment: Pt noted with significant stiffness in L hand/fingers and wrist/forearm. She is noted with minimal active finger flexion, but responded well to sustained passive stretch. Edema appears to be a limitingfactor also. Pt demonstrates understanding of self-passive stretches with minimal guidance. She reports she is performing at home which she does demonstrate ability to perform HEP. Patient will benefitfrom continued OT for improved L UE function. Plan: Continue OT KEENA. Ezio Hughes OTR, MOT License #[id number] Occupational Therapy [facility] Department of Rehabilitation Services M-W-F at [facility] T-Th at [facility] CIPAL SERVICES MANAGER documented in this encounter Plan of Treatment Date Type Specialty Care Team Description 08/07/2020 Office Visit Internal Medicine Jatin Roldan MD [address] [phone] 08/12/2020 Ancillary Visit Occupational Therapy Kelton Armenta MD [address] [place], [place] [address] Anand Hughes, OT [address] [place] [address] 08/27/2020 Office Visit Orthopedic Surgery Chandler Armenta MD [address] [place], [place] [phone] Health Maintenance Due Date Last Done Comments [...] of this encounter Implants Implanted Type Area Land Leasing Information Clerk Device Shelf Model / Identifier Expiration Serial / Date Lot Cancellous Crushed, [employer] Ser vices (1 10mm) Freeze Dried 7.5 Cc #1233-12 - [id number] BONE Left: [employer] 025 1233-12 / Implanted: Qty: 1 on 05/15/2020 by Jose Armenta MD at [facility] [id number] / NA Component Sfc Outer 28mm Trimed #Sfcoc. - Sna Insert Left: [employer] 05/15/2030 SFCOC. / Implanted: Qty: 1 on 05/15/2020 by Jose Armenta MD at [facility] Wrist NA / NA Plate Pin 5h Trimed #Rcp5 - S0 PLATE Left: [employer] 05/15/2020 RCP5 / Implanted: Qty: 1 on 05/15/2020 by Jose Armenta MD at [facility] Wrist 0 / 0 Plate Hook 4h Trimed #Whv-4 - Sna PLATE Left: [employer] 05/15/2030 WHV-4 / Implanted: Qty: 1 on 05/15/2020 by Jose Armenta MD at [facility] Wrist NA / NA Plate Wire Form 3h Trimed #Wfp3 - Sna PLATE Left: [employer] 05/15/2030 WFP3 / Implanted: Qty: 1 on 05/15/2020 by Jose Armenta MD at [facility] Wrist NA / NA Plate Peg Ulnar 5h Trimed #Upg-5 - Sna PLATE Left: [employer] 05/15/2030 UPG-5 / Implanted: Qty: 1 on 05/15/2020 by Jose Armenta MD at [facility] Wrist NA / NA Peg 2.1bnm79ie Threaded Locking Trimed Ref#Tpeg-12 - Sna Peg L eft: [employer] 05/15/2030 TPEG-12 / Implanted: Qty: 3 on 05/15/2020 by Jose Armenta MD at [facility] Wrist NA / NA Screw 2.7lop02vr Threaded Locking Peg Trimed Ref#Tpeg-18 - Sna S CREW Left: [employer] 05/15/2030 TPEG-18 / Implanted: Qty: 1 on 05/15/2020 by Jose Armenta MD at [facility] Wrist NA / NA Screw 2.0jxt31lq Threaded Locking Peg Trimed Ref#Tpeg-20 - Sna S CREW Left: [employer] 05/15/2030 TPEG-20 / Implanted: Qty: 1 on 05/15/2020 by Jose Armenta MD at [facility] Wrist NA / NA Screw Cortical 2.3mm X 16mm Trimed #Trx2.3-16 - S0 SCREW Left: [employer] 05/15/2020 TRX2.3-16 / Implanted: Qty: 2 on 05/15/2020 by Jose Armenta MD at [facility] Wrist 0 / 0 Screw Cortical 2.3mm X 20mm Trimed #Trx2.3-20 - S0 SCREW Left: [employer] 05/15/2020 TRX2.3-20 / Implanted: Qty: 1 on 05/15/2020 by Jose Armenta MD at [facility] Wrist 0 / 0 Screw Cortical 2.3mm X 12mm Trimed #Trx2.3-12 - Sna SCREW Left: [employer] 05/15/2030 TRX2.3-12 / Implanted: Qty: 1 on 05/15/2020 by Jose Armenta MD at [facility] Wrist NA / NA Screw 2.1avu63gm Threaded Locking Peg Trimed Ref#Tpeg-14 - Sna S CREW Left: [employer] 05/15/2030 TPEG-14 / Implanted: Qty: 2 on 05/15/2020 by Jose Armenta MD at [facility] Wrist NA / NA Kwire 1.1mm Trimed Ref# Wire-1.1/100 - S0 Supply Left: [employer] 05/15/2020 WIRE-1.1/100 / Implanted: Qty: 6 on 05/15/2020 by Jose Armenta MD at [facility] Item Wrist 0 / [...] e / Group Dates AETNA - AETNA [id number] 2019-[employer] Me dicare Adv MANAGED MEDICARE ADV nt [id number] [place] [address] documented as of this encounter
--- OUTSIDE RECORDS SUMMARY | 2020-08-30 11:07 | XMS REPORT | Summary of Care ---
:1955 Author Organization [facility] - [facility] Address [address] [place] [address] Care Team Providers Name Role Phone Roseanne Dahl Primary Care Provider Reason for Visit Reason Comments Follow-up (Routine) Status Reason Specialty Diagnoses / Referred By Referred To Procedures Contact Contact New Request Occupational Procedures Saul Armenta, Therapy [place] THERAPEUTIC MD Anand Garcia, OT EXERCISES [address] [place] [facility] REEDUCAT,1+ [place], [place] AREAS, [place] [address] [place] [address] [place] MANUAL THER Phone: MARI,1+[facility],EA 15 MIN Fax: [place] THERAPEUT [phone] ACTVITY DIRECT PT CONTACT EACH 15 MIN [place] SELF-CARE/HOME MGMT TRAINING EACH 15 MINUTES FOLLOW-UP 45 Encounter Details Date Type Department Care Team Description 08/26/2020 Ancillary Visit [facility] Jose Armenta MD [address] [place], [place] [id number] Decreased range of motion of left wrist (Primary Dx); Occupational Therapy- Anand Hughes, OT [address] [place] [address] Limitation of joint motion of left hand; Jaxon Decreased activities of dav y living (ADL); Professional Office Left [address] [place] [phone] Allergies No Known Allergiesdocumented as of this encounter (statuses as of 08/26/2020) Medications Medication Sig Dispensed Refills Start Date [...] R directed 3 (three) INJECTION) times daily. Mmxzy-8-BLN-EPA-Fish Take 1 capsule by 0 Active Oil (FISH OIL) 1,000 mouth daily. mg (120 mg-180 mg) Cap aspirin 81 mg EC Take 81 mg by mouth 0 Active tablet daily. 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 documented as of this encounter Last Filed Vital Signs Not on filedocumented in this encounter Progress Notes Anand Hughes, OT - 08/26/2020 9:30 AM CST Occupational Therapy Treatment Date: August 26, 2020 Subjective: Pain Assessment Pain Assessment: No/denies pain(at rest) Pain Score: 0 - No pain(none at rest) Post-Treatment Pain Score: (increased but no rating. ) Pain Location: Hand(palm near wound region) Pain Orientation: Left Pain Descriptors: Pins and needles;Sharp Diagnosis: 1. Decreased range of motion of left wrist 2. Limitation of joint motion of left hand 3. Decreased activities of daily living (ADL) 4. Left wrist pain Objective: Dressings doffed, then donned at end of session. Debulked. Outpatient OT Treatment Row Name 08/26/20 1200 General Visit Number 8 Chart Reviewed Yes Family/Caregiver Present Yes Pain Assessment Pain Assessment No/denies pain at rest Pain Score 0 - No pain none at rest Post-Treatment Pain Score increased but no rating. Pain Location Hand palm near wound region Pain Orientation Left Pain Descriptors Pins and needles;Sharp Orthosis Training Orthosis Comments Adjusted orthosis 1st webspace bar by rounding it out to reduce pressure to thumb and webspace region due to debulking dressings Therapeutic Exercise Therapeutic Exercise Activity 1 Active ROM L wrist/forearm and hand/fingers Therapeutic Exercise Activity 2 Passive ROM L hand/fingers with sustained stretch Therapeutic Exercise Acitivity 3 Passive ROM L forearm and wrist with sustained stretch Therapeutic Exercise Activity 4 Blocking exercises L hand/fingers Manual Therapy Manual Therapy Activity 1 Edema massage on dorsal hand/wrist region Assessment: Pt with significant impaired ROM of L wrist, forearm and hand/fingers with significant edema, however, motion of fingers and wrist flexion improving, especially after stretches. Pt will benefit increased frequency of HEP as she reports she performs 1x/day and sometimes more than 1x/day. Encouraged patient to perform every ~1-2 hours that she is awake for improved motion. Also discussed with patient and dtr to check with ortho if she should continue wearing orthosis due to hand wounds or begin weaning away from orthosis. Patient will benefit from continued OT for improved L UE function. Plan: Continue OT POC. 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 encounter Plan of Treatment Date Type Specialty Care Team Description 08/27/2020 Office Visit Orthopedic Surgery Abean Stovall, CLINT 2240 [facility] [address] [place], [place] [address] 08/27/2020 Office Visit Internal Medicine Jatin Roldan MD 2785 [facility] [address] [place], [place] [address] 09/02/2020 Ancillary Visit Occupational Therapy Shay Hughes OT [address] [place] [address] Health Maintenance Due Date Last Done Comments [...] of this encounter Implants Implanted Type Area Fabrication Technician Device Shelf Model / Identifier Expiration Serial / Date Lot Cancellous Crushed, Community Tissue Ser vices (1 10mm) Freeze Dried 7.5 Cc #1233-12 - [id number] BONE Left: Community Tissue 025 1233-12 / Implanted: Qty: 1 on 05/15/2020 by Jose Armenta MD at [facility] [id number] / NA Component Sfc Outer 28mm Trimed #Sfcoc. - Sna Insert Left: [employer] 05/15/2030 SFCOC. / Implanted: Qty: 1 on 05/15/2020 by Jose Armenta MD at [facility] Wrist NA / NA Plate Pin 5h Trimed #Rcp5 - S0 PLATE Left: [employer] 05/15/2020 RCP5 / Implanted: Qty: 1 on 05/15/2020 by Jose Armenta MD at [facility] Wrist 0 / 0 Plate Hook 4h Trimed #Whv-4 - Sna PLATE Left: [employer] 05/15/2030 WHV-4 / Implanted: Qty: 1 on 05/15/2020 by Jose Armenta MD at [facility] Wrist NA / NA Plate Wire Form 3h Trimed #Wfp3 - Sna PLATE Left: [employer] 05/15/2030 WFP3 / Implanted: Qty: 1 on 05/15/2020 by Jose Armenta MD at [facility] Wrist NA / NA Plate Peg Ulnar 5h Trimed #Upg-5 - Sna PLATE Left: [employer] 05/15/2030 UPG-5 / Implanted: Qty: 1 on 05/15/2020 by Jose Armenta MD at [facility] Wrist NA / NA Peg 2.7ivq97fs Threaded Locking Trimed Ref#Tpeg-12 - Sna Peg L eft: [employer] 05/15/2030 TPEG-12 / Implanted: Qty: 3 on 05/15/2020 by Jose Armenta MD at [facility] Wrist NA / NA Screw 2.6yap02vw Threaded Locking Peg Trimed Ref#Tpeg-18 - Sna S CREW Left: [employer] 05/15/2030 TPEG-18 / Implanted: Qty: 1 on 05/15/2020 by Jose Armenta MD at [facility] Wrist NA / NA Screw 2.4nry30fv Threaded Locking Peg Trimed Ref#Tpeg-20 - Sna S CREW Left: [employer] 05/15/2030 TPEG-20 / Implanted: Qty: 1 on 05/15/2020 by Jose Armenta MD at [facility] Wrist NA / NA Screw Cortical 2.3mm X 16mm Trimed #Trx2.3-16 - S0 SCREW Left: [employer] 05/15/2020 TRX2.3-16 / Implanted: Qty: 2 on 05/15/2020 by Jose Armenta MD at [facility] Wrist 0 / 0 Screw Cortical 2.3mm X 20mm Trimed #Trx2.3-20 - S0 SCREW Left: [employer] 05/15/2020 TRX2.3-20 / Implanted: Qty: 1 on 05/15/2020 by Jose Armenta MD at [facility] Wrist 0 / 0 Screw Cortical 2.3mm X 12mm Trimed #Trx2.3-12 - Sna SCREW Left: [employer] 05/15/2030 TRX2.3-12 / Implanted: Qty: 1 on 05/15/2020 by Jose Armenta MD at [facility] Wrist NA / NA Screw 2.4rju20um Threaded Locking Peg Trimed Ref#Tpeg-14 - Sna S CREW Left: [employer] 05/15/2030 TPEG-14 / Implanted: Qty: 2 on 05/15/2020 by Jose Armenta MD at [facility] Wrist NA / NA Kwire 1.1mm Trimed Ref# Wire-1.1/100 - S0 Supply Left: [employer] 05/15/2020 WIRE-1.1/100 / Implanted: Qty: 6 on 05/15/2020 by Jose Armenta MD at [facility] Item Wrist 0 / 0 documented [...] e / Group Dates AETNA - AETNA [id number] 2019-[employer] [address] [employer] [employer] dicare Adv MANAGED MEDICARE ADV [place] [id number] [place] [address] documented as of this encounter
--- OUTSIDE RECORDS SUMMARY | 2020-08-30 11:08 | XMS REPORT | Summary of Care ---
:1955 Author Organization [facility] Address [address] [place] [address] Care Team Providers Name Role Phone Roseanne Dahl Primary Care Provider Reason for Referral Radiology Services (Routine) Status Reason Specialty Diagnoses / Referred By Referred To Procedures Contact Contact New Request Diagnostic Diagnoses Closed fracture of distal end of left radius, unspecified fracture morphology, initial encounter Jose Armenta, Radiology Procedures XR WRIST 3+ VW LEFT [address] [place] [address] Reason for Visit Radiology Services (Routine) Status Reason Specialty Diagnoses / Referred By Referred To Procedures Contact Contact New Request Diagnostic Diagnoses Closed fracture of distal end of left radius, unspecified fracture morphology, initial encounter Jose Armenta, Radiology Procedures XR WRIST 3+ VW LEFT [address] [place] [address] Encounter Details Date Type Department Care Team Description 08/27/2020 Hospital Encounter [facility] Jose Colon ace, MD Arrived [facility] [address] [place] [address] [phone] Allergies No Known Allergiesdocumented as of this encounter (statuses as of 08/28/2020) Medications Medication Sig Dispensed Refills Start Date [...] R directed 3 (three) INJECTION) times daily. Tqskc-5-YGI-EPA-Fish Take 1 capsule by 0 Active Oil (FISH OIL) 1,000 mouth daily. mg (120 mg-180 mg) Cap aspirin 81 mg EC Take 81 mg by mouth 0 Active tablet daily. 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 documented as of this encounter Last Filed Vital Signs Not on filedocumented in this encounter Plan of Treatment Date Type Specialty Care Team Description 09/02/2020 Ancillary Visit Occupational Therapy Kelton Armenta MD [facility] [place], [place] [address] Anand Hughes, [address] [address] 09/03/2020 Office Visit Internal Medicine Jatin Roldan MD [address] [address] 10/01/2020 Office Visit Orthopedic Surgery Chandler Armenta MD [address] [place] [phone] Health Maintenance Due Date Last Done Comments [...] of this encounter Implants Implanted Type Area Sheather Device Shelf Model / Identifier Expiration Serial / Date Lot Cancellous Crushed, Community Tissue Ser vices (1 10mm) Freeze Dried 7.5 Cc #1233-12 - [id number] BONE Left: Community [employer] 025 1233-12 / Implanted: Qty: 1 on 05/15/2020 by Jose Armenta MD at [facility] [id number] / NA Component Sfc Outer 28mm Trimed #Sfcoc. - Sna Insert Left: [employer] 05/15/2030 SFCOC. / Implanted: Qty: 1 on 05/15/2020 by Jose Armenta MD at [facility] Wrist NA / NA Plate Pin 5h Trimed #Rcp5 - S0 PLATE Left: [employer] 05/15/2020 RCP5 / Implanted: Qty: 1 on 05/15/2020 by Jose Armenta MD at [facility] Wrist 0 / 0 Plate Hook 4h Trimed #Whv-4 - Sna PLATE Left: [employer] 05/15/2030 WHV-4 / Implanted: Qty: 1 on 05/15/2020 by Jose Armenta MD at [facility] Wrist NA / NA Plate Wire Form 3h Trimed #Wfp3 - Sna PLATE Left: [employer] 05/15/2030 WFP3 / Implanted: Qty: 1 on 05/15/2020 by Jose Armenta MD at [facility] Wrist NA / NA Plate Peg Ulnar 5h Trimed #Upg-5 - Sna PLATE Left: [employer] 05/15/2030 UPG-5 / Implanted: Qty: 1 on 05/15/2020 by Jose Armenta MD at [facility] Wrist NA / NA Peg 2.0fio00up Threaded Locking Trimed Ref#Tpeg-12 - Sna Peg L eft: [employer] 05/15/2030 TPEG-12 / Implanted: Qty: 3 on 05/15/2020 by Jose Armenta MD at [facility] Wrist NA / NA Screw 2.2tup54ht Threaded Locking Peg Trimed Ref#Tpeg-18 - Sna S CREW Left: [employer] 05/15/2030 TPEG-18 / Implanted: Qty: 1 on 05/15/2020 by Jose Armenta MD at [facility] Wrist NA / NA Screw 2.8pfs71fc Threaded Locking Peg Trimed Ref#Tpeg-20 - Sna S CREW Left: [employer] 05/15/2030 TPEG-20 / Implanted: Qty: 1 on 05/15/2020 by Jose Armenta MD at [facility] Wrist NA / NA Screw Cortical 2.3mm X 16mm Trimed #Trx2.3-16 - S0 SCREW Left: [employer] 05/15/2020 TRX2.3-16 / Implanted: Qty: 2 on 05/15/2020 by Jose Armenta MD at [facility] Wrist 0 / 0 Screw Cortical 2.3mm X 20mm Trimed #Trx2.3-20 - S0 SCREW Left: [employer] 05/15/2020 TRX2.3-20 / Implanted: Qty: 1 on 05/15/2020 by Jose Armenta MD at [facility] Wrist 0 / 0 Screw Cortical 2.3mm X 12mm Trimed #Trx2.3-12 - Sna SCREW Left: [employer] 05/15/2030 TRX2.3-12 / Implanted: Qty: 1 on 05/15/2020 by Jose Armenta MD at [facility] Wrist NA / NA Screw 2.8und03im Threaded Locking Peg Trimed Ref#Tpeg-14 - Sna S CREW Left: [employer] 05/15/2030 TPEG-14 / Implanted: Qty: 2 on 05/15/2020 by Jose Armenta MD at [facility] Wrist NA / NA Kwire 1.1mm Trimed Ref# Wire-1.1/100 - S0 Supply Left: [employer] 05/15/2020 WIRE-1.1/100 / Implanted: Qty: 6 on 05/15/2020 by Jose Armenta MD at [facility] Item Wrist 0 / 0 documented as of this encounter Procedures Procedure Name Priority Date/Time Associated Diagnosis Comme nts XR WRIST 3+ VW LEFT Routine 08/27/2020 1:17 PM Closed fractur e of Results for this BAKER distal end of left procedure are in radius, unspecified the resu lts fracture morphology, section . initial encounter documented in this encounter Results XR WRIST 3+ VW LEFT (08/27/2020 1:17 PM BAKER) Specimen Impressions Performed At PACS/VR/DOSE Stable hardware fixation of healing dist al radial and ulnar fractures. Narrative Performed At This result has an attachment that is no t available. EXAM: PACS/VR/DOSE XR WRIST 3+ VW LEFT HISTORY: clinic COMPARISON: 07/30/2020 FINDINGS: Imaging of the left wrist demonstrates stable percutan eous pin and and plate fixation hardware securing a comminuted distal r adial metaphyseal fracture with intra-articular extension. Articular irma p-off deformity at the radial articular surface persists. Hardware alignm ent appears unchanged. Plate fixation hardware secures a healing d istal ulnar metaphyseal fracture with progressive partially bridgi ng callus. Perihardware lucency is seen about the mid ulnar plate fixation screw. Soft tissue swelling and osteopenia are present. Vascular c alcifications are present. Procedure Note [facility], Radiant Results Inft User - 2020 1:33 PM BAKER EXAM: XR WRIST 3+ VW LEFT HISTORY: clinic COMPARISON: 07/30/2020 FINDINGS: Imaging of the left wrist demonstrates s table percutaneous pin and and plate fixation hardware securing a commi nuted distal radial metaphyseal fracture with intra-articular extension. Articular step-off deformity at the radial articular surface persists. H ardware alignment appears unchanged. Plate fixation hardware secur es a healing distal ulnar metaphyseal fracture with progressive pa rtially bridging callus. Perihardware lucency is seen about the m id ulnar plate fixation screw. Soft tissue swelling and osteopenia are prese nt. Vascular calcifications are present. IMPRESSION Stable hardware fixation of healing dist al radial and ulnar fractures. Performing Organization Address City/State/Zipcode Phone Number PACS/VR/DOSE documented in this encounter Visit Diagnoses Diagnosis Closed fracture of distal end of left ra dius, unspecified fracture morphology, initial encounter documented in this encounter Insurance Payer Benefit Plan Subscriber ID Effective Phone Address Typ e / Group Dates AETNA - AETNA [id number] 2019-[place]o [place] dicaraseli Adv MANAGED MEDICARE ADV [id number] [place] [address] documented as of this encounter
--- OUTSIDE RECORDS SUMMARY | 2020-08-30 11:08 | XMS REPORT | Summary of Care ---
:1955 Author Organization [facility] Address [address] [place] [address] Care Team Providers Name Role Phone JamiejustinRoseanne Donato Primary Care Provider Reason for Visit Reason Comments Follow-up Left wrist Other (Routine) Status Reason Specialty Diagnoses / Referred By Referred To Procedures Contact Contact Closed Orthopedic Surgery Diagnoses Closed fracture of distal end of left radius, unspecified fracture morphology, initial encounter Gasper Shelton, Gasper Shelton, Procedures Discharge Follow-up: Specialty Provider GASPER SHELTON; 2 Weeks MD PETERSON [address] [place] [phone] Phone: Fax: Encounter Details Date Type Department Care Team Description 08/27/2020 Office Visit [facility] Abena Stovall FN P Open wound of left Orthopaedic Surgery- [address] [place] [address] kim lm (Primary Dx) [address] Curly [address] [place] [phone] Allergies No Known Allergiesdocumented as of this [...] R directed 3 (three) INJECTION) times daily. Xunca-5-KBA-EPA-Fish Take 1 capsule by 0 Active Oil [...] with No / Unsure 08/27/2020 12:47 PM GRAIN SHOVELER someone who was confirmed or suspected to have Coronavirus / COVID-19? documented as of this encounter Last Filed Vital Signs Vital Sign Reading Time Taken Comments Blood Pressure - - Pulse - - Temperature 35.9 C (96.7 F) 08/27/2020 1:05 PM GRAIN SHOVELER Respiratory Rate - - Oxygen Saturation - - Inhaled Oxygen Concentration - - Weight 93.4 kg (206 lb) 08/27/2020 1:05 PM GRAIN SHOVELER Height 157.5 cm (5' 2.01") 08/27/2020 1:05 PM GRAIN SHOVELER Body Mass Index 37.67 08/27/2020 1:05 PM GRAIN SHOVELER documented in this encounter Progress Notes Abena Stovall FNP - 08/27/2020 2:00 PM CST [facility] NOTE NAME: Indira Chavis Date of Service: 08/27/2020 13:13 CC: Follow-up regarding left hand distal radius and ulna ORIF on 05/15/20. SUBJECT: Indira Chavis is a 65 year old [...] a full fist. Has been wearing brace. Interval history 08/27/2019 Patient returns to clinic for follow-up. She reports that her wound has improved with local wound care at [facility]. She is currently receiving home dressing changes by daughter (presentat today's visit). She endorses moderate pain of her left upper extremity; both in the wound and deeper structures. This is exacerbated during debridements and dressing changes. She reports progressworking with occupational therapy. She denies fever and chills. CURRENT HOSPITAL MEDICATIONS Current Outpatient Medications on File Prior to Visit Medication Sig Dispense Refill aspirin 81 mg EC tablet Take 81 mg by mouth daily. insulin NPH human isophane (NOVOLIN N SC) inject 65 Units under the skin daily. insulin regular, human (NOVOLIN R INJECTION) Inject 20 Units as directed 3 (three) times daily. Pwumg-9-JEE-EPA-Fish Oil (FISH OIL) 1,000 mg (120 mg-180 mg) Cap Take 1 capsule by mouth daily. furosemide 20 mg tablet TAKE 1 TABLET BY MOUTH ONCE DAILY FOR 90 DAYS JARDIANCE 25 mg Tab levothyroxine 75 mcg tablet levothyroxine 88 mcg tablet lisinopriL 40 mg tablet TAKE 1 TABLET BY MOUTH ONCE DAILY FOR 90 DAYS meloxicam 7.5 mg tablet TAKE 1 TABLET BY MOUTH ONCE DAILY WITH FOOD metoprolol succinate XL 50 mg 24 hr tablet NOVOLIN N NPH U-100 INSULIN 100 unit/mL injection INJECT 65 UNITS SUBCUTANEOUSLY ONCE DAILY DIRECTED FOR 90 DAYS ondansetron 4 mg tablet TAKE 1 TABLET BY MOUTH EVERY 12 HOURS NEEDED traZODone 100 mg tablet acetaminophen-codeine 300-30 mg tablet TAKE 2 TABLETS BY MOUTH EVERY 6 HOURS NEEDED FOR PAIN atorvastatin 40 mg tablet TAKE 1 TABLET BY MOUTH ONCE DAILY IN THE EVENING FOR 90 DAYS busPIRone 5 mg tablet TAKE 1 TABLET BY MOUTH TWICE DAILY FOR 90 DAYS citalopram 40 mg tablet TAKE 1 TABLET BY MOUTH ONCE DAILY FOR 90 DAYS No current facility-administered medications on file prior to visit. HISTORY Past Surgical History: Procedure Laterality Date APPLICATION SPLINT UPPER EXTREMITY (SHX) Left 05/15/2020 Surgeon: Gasper Shelton MD; Location: [facility] OR [facility] CABG, ARTERIAL, TWO DISTAL RADIUS ORIF Left 05/15/2020 Surgeon: Gasper Shelton MD; [facility] OPEN CARPAL TUNNEL RELEASE Left 05/15/2020 Surgeon: Gasper Shelton MD; Location: [facility] OR [facility] All other past surgical history non contributory to this encounter. Past Medical History: Diagnosis Date Blindness of both eyes CAD (coronary artery disease) DM (diabetes mellitus) with complications HTN (hypertension) All other past medical history non contributory to this encounter. No family history on file. All other family history non contributory to this encounter. Social History Socioeconomic History Marital status: Spouse [...] file Gets together: Not on file Attends anabaptist service: Not on file Active member of [...] file Social History Narrative Not on file All other social history non contributory to this encounter. REVIEW OF SYSTEMS Constitutional: Denies fever and chills. HEENT: Denies problems with head, ears, eyes, nose, and throat. Cardiac: Denies chest pain and palpitations. Pulmonary: Denies dyspnea and cough. Gastrointestinal: Denies abdominal pain, constipation, and diarrhea. Genitourinary: Denies dysuria. Endocrine: Denies diabetes. Musculoskeletal: Per HPI. Neuro: Denies numbness and tingling. Psych: Denies anxiety and depression. Skin: Per HPI. Allergies: No Known Allergies PHYSICAL EXAM Temp 35.9 C (96.7 F) (Temporal Artery) | Ht 62.01" (157.5 cm) | Wt 93.4 kg (206 lb) | BMI 37.67 kg/m General: Alert and oriented, in no acute distress. HEENT: Extraocular movements in tact. Cardiac: Regular rate and rhythm. Pulmonary: Breathing comfortably on room air. Abdomen: Soft, non-distended. Musculoskeletal: Left hand with roughly +/- 30 degrees of flexion and extension at level of the wrist. Limited ability to make fist and extend fingers 2/2 stiffness. Neurovascularly intact tips of all fingers of left hand. Neuro: No focal deficits. Psych: Appropriate mood and affect. Skin: Left hand with 4 x 3 cm superficial wound with fibrinous exudate and beefy red granulation tissue in the base. Retained suture present in the palm of hand Dorsal/ulnar aspect of left thumb with 0.5 x 1.0 cm eschar. Scaling diffusely present throughout left hand. No signs of active infection. LABORATORY/MICROBIOLOGY/PATHOLOGY No new laboratory studies. RADIOLOGY Review 3-view of left hand demonstrates minimal interval healing. ASSESSMENT/PLAN Indira Chavis is a 65 year old female s/p left hand distal radius and ulna ORIF on 05/15/20 with superficial palmar skin maceration. The patients hand wound continues to improve with local wound care. She reports that she will be seeing her wound care provider this afternoon with plan for likely debridement. I will defer debridement of thumb eschar and further wound care recommendations to this provider. I have recommended the use of non-scented moisturizer to help with scaling of hands. Residual sutures removed today by our team. -C/w OT protocol -C/w wound care per [facility] provider -Non-scented lotion to moisturize areas of scaling. -Optimize protein intake to assist with wound healing -Optimize glycemic control to assist with wound healing -NSAIDs for pain -Condition and plans were discussed with patient, who expressed understanding and is agreeable to the plan. -All questions were answered, concerns addressed; risks and benefits were discussed. -Patient was instructed to schedule earlier appointment if symptoms worsen. -Restrictions: NWB LUE, continue to wear protective splint, elevate affected extremity as much as possible to reduce pain. -Follow up with Dr. Shelton in 4 weeks documented in this encounter Plan of Treatment Date Type Specialty Care Team Description 08/27/2020 Office Visit Internal Medicine Jatin Roldan MD Open wound of left hand with complicatio n, subsequent encounter (Primary Dx); [address] [facility] Wound infe ction; [place]; Curly 165 Class 3 severe obesity due to excess ju ories with serious comorbidity and body mass index (BMI) of 40.0 to 44.9 in adult; [place], [place] Blindness of both eyes; [address] Abscess of arm, left [phone] 09/02/2020 Ancillary Visit Occupational Therapy Anand Hughes, OT [address] [place] [address] 10/01/2020 Office Visit Orthopedic Surgery Chandler Shelton MD [address] [place] [address] Health Maintenance Due Date Last Done [...] of this encounter Implants Implanted Type Area Telemarketing Fundraiser Device Shelf Model / Identifier Expiration Serial / Date Lot Cancellous Crushed, [employer] Tissue Ser vices (1 10mm) Freeze Dried 7.5 Cc #1233-12 - [id number] BONE Left: Community Tissue 025 1233-12 / Implanted: Qty: 1 on 05/15/2020 by Gasper Shelton MD at [facility] [id number] / NA Component Sfc Outer 28mm Trimed #Sfcoc. - Sna Insert Left: [employer] 05/15/2030 SFCOC. / Implanted: Qty: 1 on 05/15/2020 by Gasper Shelton MD at [facility] Wrist NA / NA Plate Pin 5h Trimed #Rcp5 - S0 PLATE Left: [employer] 05/15/2020 RCP5 / Implanted: Qty: 1 on 05/15/2020 by Gasper Shelton MD at [facility] Wrist 0 / 0 Plate Hook 4h Trimed #Whv-4 - Sna PLATE Left: [employer] 05/15/2030 WHV-4 / Implanted: Qty: 1 on 05/15/2020 by Gasper Shelton MD at [facility] Wrist NA / NA Plate Wire Form 3h Trimed #Wfp3 - Sna PLATE Left: [employer] 05/15/2030 WFP3 / Implanted: Qty: 1 on 05/15/2020 by Gasper Shelton MD at [facility] Wrist NA / NA Plate Peg Ulnar 5h Trimed #Upg-5 - Sna PLATE Left: [employer] 05/15/2030 UPG-5 / Implanted: Qty: 1 on 05/15/2020 by Gasper Shelton MD at [facility] Wrist NA / NA Peg [id number] Threaded Locking Trimed Ref#Tpeg-12 - Sna Peg L eft: [employer] 05/15/2030 TPEG-12 / Implanted: Qty: 3 on 05/15/2020 by Gasper Shelton MD at [facility] Wrist NA / NA Screw [id number] Threaded Locking Peg Trimed Ref#Tpeg-18 - Sna S CREW Left: [employer] 05/15/2030 TPEG-18 / Implanted: Qty: 1 on 05/15/2020 by Gasper Shelton MD at [facility] Wrist NA / NA Screw 2.8uyn69cw Threaded Locking Peg Trimed Ref#Tpeg-20 - Sna S CREW Left: [employer] 05/15/2030 TPEG-20 / Implanted: Qty: 1 on 05/15/2020 by Gasper Shelton MD at [facility] Wrist NA / NA Screw Cortical 2.3mm X 16mm Trimed #Trx2.3-16 - S0 SCREW Left: [employer] 05/15/2020 TRX2.3-16 / Implanted: Qty: 2 on 05/15/2020 by Gasper Shelton MD at [facility] Wrist 0 / 0 Screw Cortical 2.3mm X 20mm Trimed #Trx2.3-20 - S0 SCREW Left: [employer] 05/15/2020 TRX2.3-20 / Implanted: Qty: 1 on 05/15/2020 by Gasper Shelton MD at [facility] Wrist 0 / 0 Screw Cortical 2.3mm X 12mm Trimed #Trx2.3-12 - Sna SCREW Left: [employer] 05/15/2030 TRX2.3-12 / Implanted: Qty: 1 on 05/15/2020 by Gasper Shelton MD at [facility] Wrist NA / NA Screw 2.2fvo57qw Threaded Locking Peg Trimed Ref#Tpeg-14 - Sna S CREW Left: [employer] 05/15/2030 TPEG-14 / Implanted: Qty: 2 on 05/15/2020 by Gasper Shelton MD at [facility] Wrist NA / NA Kwire 1.1mm Trimed Ref# Wire-1.1/100 - S0 Supply Left: [employer] 05/15/2020 WIRE-1.1/100 / Implanted: Qty: 6 on 05/15/2020 by Gasper Shelton MD at [facility] Item Wrist 0 / 0 documented as of this encounter Results Not on filedocumented in this encounter Visit Diagnoses Diagnosis Open wound of left hand with complicatio n, subsequent encounter - Primary Wound infection Posttraumatic wound infection not elsewh ere classified Immobility Other ill-defined conditions Class 3 severe obesity due to excess ju ories with serious comorbidity and body mass index (BMI) of 40.0 to 44.9 in adult Blindness of both eyes Blindness of both eyes, impairment level not further specified Abscess of arm, left Cellulitis and abscess of upper arm and forearm Open wound of left palm - Primary documented in this encounter Insurance Payer Benefit Plan Subscriber ID Effective Phone Address Typ e / Group Dates AETNA - AETNA [id number] 2019-[place] P [employer] R XIONG Me dicare Adv MANAGED MEDICARE ADV [place] [id number] [place] [address] documented as of this encounter
--- OUTSIDE RECORDS SUMMARY | 2020-08-30 11:08 | XMS REPORT | Summary of Care ---
:1955 Author Organization [facility] Address [address] [place] [address] Care Team Providers Name Role Phone JamiejustinRoseanne Dontao Primary Care Provider Reason for Visit Reason Comments Follow-up Left wrist Other (Routine) Status Reason Specialty Diagnoses / Referred By Referred To Procedures Contact Contact Closed Orthopedic Surgery Diagnoses Closed fracture of distal end of left radius, unspecified fracture morphology, initial encounter Gasper Shelton, Gasper Shelton, Procedures Discharge Follow-up: Specialty Provider GASPER SHELTON; 2 Weeks MD PETERSON [address] [place] [phone] Phone: Fax: Encounter Details Date Type Department Care Team Description 08/27/2020 Office Visit [facility] Abena Stovall FN P Open wound of left Orthopaedic Surgery- [address] [place] [address] kim lm (Primary Dx) [address] [place] [phone] Allergies No Known Allergiesdocumented as of this [...] R directed 3 (three) INJECTION) times daily. Rovuz-1-XCY-EPA-Fish Take 1 capsule by 0 Active Oil [...] with No / Unsure 08/27/2020 12:47 PM CONGREGATIONAL CARE PASTOR someone who was confirmed or suspected to have Coronavirus / COVID-19? documented as of this encounter Last Filed Vital Signs Vital Sign Reading Time Taken Comments Blood Pressure - - Pulse - - Temperature 35.9 C (96.7 F) 08/27/2020 1:05 PM CONGREGATIONAL CARE PASTOR Respiratory Rate - - Oxygen Saturation - - Inhaled Oxygen Concentration - - Weight 93.4 kg (206 lb) 08/27/2020 1:05 PM CONGREGATIONAL CARE PASTOR Height 157.5 cm (5' 2.01") 08/27/2020 1:05 PM CONGREGATIONAL CARE PASTOR Body Mass Index 37.67 08/27/2020 1:05 PM CONGREGATIONAL CARE PASTOR documented in this encounter Progress Notes Abena Stovall FNP - 08/27/2020 2:00 PM CST [facility] NOTE NAME: Indira Chavis Date [...] has improved with local wound care at [facility]. She is currently receiving [...] Units as directed 3 (three) times daily. Pflno-0-KHB-EPA-Fish Oil (FISH OIL) 1,000 mg (120 mg-180 [...] Left 05/15/2020 Surgeon: Gasper Shelton MD; Location: [facility] CABG, ARTERIAL, TWO DISTAL RADIUS ORIF Left 05/15/2020 Surgeon: Gasper Shelton MD; [facility] OPEN CARPAL TUNNEL RELEASE Left 05/15/2020 Surgeon: Gasper Shelton MD; Location: [facility] All other past surgical history non contributory [...] file Gets together: Not on file Attends anglican service: Not on file Active member of [...] -C/w OT protocol -C/w wound care per [facility] provider -Non-scented lotion to moisturize areas of [...] complicatio n, subsequent encounter (Primary Dx); [address] [facility] Wound infe ction; [place]; Curly 165 Class 3 severe obesity due to excess ju ories with serious comorbidity and body mass index (BMI) of 40.0 to 44.9 in adult; [place], [place] Blindness of both eyes; [address] Abscess of arm, left [phone] 09/02/2020 Ancillary Visit Occupational Therapy Anand Hughes, OT [address] [place] [address] 10/01/2020 Office Visit Orthopedic Surgery Chandler Shelton MD [address] [place] [address] Health Maintenance Due Date Last [...] of this encounter Implants Implanted Type Area Numerical Control Machine Tool Operator Device Shelf Model / Identifier Expiration Serial / Date Lot Cancellous Crushed, [facility] Tissue Ser vices (1 10mm) Freeze Dried 7.5 Cc #1233-12 - [id number] BONE Left: [employer] 025 1233-12 / Implanted: Qty: 1 on 05/15/2020 by Gasper Shelton MD at [facility] [id number] / NA Component Sfc Outer 28mm Trimed [...] [facility] Wrist NA / NA Peg 2.7mxu48is Threaded Locking Trimed Ref#Tpeg-12 - Sna Peg L eft: [employer] 05/15/2030 TPEG-12 / Implanted: Qty: 3 on 05/15/2020 by Gasper Shelton MD at [facility] Wrist NA / NA Screw 2.5get33bn Threaded Locking Peg Trimed Ref#Tpeg-18 - Sna S CREW Left: [employer] 05/15/2030 TPEG-18 / Implanted: Qty: 1 on 05/15/2020 by Gasper Shelton MD at [facility] Wrist NA / NA Screw 2.3sex15ms Threaded Locking Peg Trimed Ref#Tpeg-20 - Sna [...] [facility] Wrist NA / NA Screw 2.6nlw23od Threaded Locking Peg Trimed Ref#Tpeg-14 - Sna S CREW Left: [employer] 05/15/2030 TPEG-14 / Implanted: Qty: 2 on 05/15/2020 by Gasper Shelton MD at [facility] Wrist NA / NA Kwire 1.1mm Trimed Ref# Wire-1.1/100 - S0 Supply Left: [employer] 05/15/2020 WIRE-1.1/100 / Implanted: Qty: 6 on 05/15/2020 by Gasper Shelton MD at [facility] Item Wrist 0 / 0 documented as [...] e / Group Dates AETNA - AETNA [id number] 2019-[place] P Maria R XIONG Me dicare Adv MANAGED MEDICARE ADV [place] [id number] [place] [address] documented as of this encounter
[2020-08-30 11:56] LABS: Absolute Lymphocytes (CBC) 1.9 K/uL (0.7-4.9); Basophils % 0.5 % (0-1.3); Hematocrit 41.3 % (36.0-45.0); Lymphocytes % 19.4 % (15.3-44.8); MPV 9.5 fL (7.6-11.3); RBC Red Blood Cell Count 4.44 M/uL (3.86-4.86)
[2020-08-30 11:58] LABS: Protime INR 1.08
[2020-08-30] MEDS ORDERED: ONDANSETRON 4 MG/2 ML VIAL ONE (12:00)
--- NOTE | 2020-08-30 12:14 | RAD REPORT ---
EXAM DESCRIPTION: RAD - Chest Single View - 08/30/2020 11:26 am CLINICAL HISTORY: AMS COMPARISON: CT study April 2019, portable chest April 2019 TECHNIQUE: AP portable chest image was obtained 08/30/2020 11:26 am . FINDINGS: Lung volumes are low accentuating the baseline prominent interstitial pattern. No peripher al mass or consolidations seen. Prominent cardiac silhouette similar to comparison. Vasculature is wi thin normal limits for shallow inspiration portable study. No measurable pleural effusion and no pneu mothorax. No acute bony abnormality seen. No acute aortic finding. Sternotomy wires are in place. Air collection below the right hemidiaphragm is believed to be normal colonic interposition. This varian t of the large bowel was seen on the CT study. IMPRESSION: Limited shallow inspiration exam without acute cardiopulmonary finding. Chronic interstitial pattern could mask early edema or infiltrate.
--- NOTE | 2020-08-30 12:16 | RAD REPORT ---
EXAM DESCRIPTION: CT - Head Brain Wo Cont - 08/30/2020 12:05 pm CLINICAL HISTORY: MENTAL STATUS CHANGE COMPARISON: Head Brain Wo Cont dated 05/03/2019 TECHNIQUE: Axial 5 mm thick images of the head were obtained without IV contrast. All CT scans are performed using dose optimization technique as appropriate and may include automated exposure control or mA/KV adjustment according to patient size. FINDINGS: No intracranial hemorrhage, mass, edema or shift of mid-line structures. No acute infarcti on changes seen. No cortical edema or sulcal effacement. Atrophy changes are present with ventricles in proportion or slightly enlarged for the amount of volume loss. This is stable intracranial pattern . Chronic ischemic changes seen in the cerebral white matter. The patient has dense arterial tree ju cifications. Mastoid air cells and visualized portions of the paranasal sinuses are clear. No acute bony findings. IMPRESSION: Negative non-contrast CT head examination. The mild atrophy and chronic ischemic changes match 2019.
[2020-08-30 12:17] LABS: ALT/SGPT 12 U/L (12-78); AST/SGOT < 3 U/L (15-37); Alkaline Phosphatase 77 U/L (45-117); BUN Blood Urea Nitrogen 18 mg/dL (7-18); Bicarbonate 20 mmol/L (21-32); Bilirubin Direct 0.2 mg/dL (0-0.2); Bilirubin Total 0.7 mg/dL (0.2-1.0); Glucose Level 247 mg/dL (74-106); NT PRO-BNP 301 pg/mL (<125); Potassium 3.6 mmol/L (3.5-5.1); Sodium Level 135 mmol/L (136-145); Troponin (Emerg Dept Use Only) < 0.02 ng/mL (0.0-0.045)
[2020-08-30 12:18] LABS: Magnesium 1.3 mg/dL (1.8-2.4)
[2020-08-30 12:58] LABS: Urine Blood NEGATIVE (NEG); Urine Glucose 2+ (NEG); Urine Protein NEGATIVE (NEG); Urine Specific Gravity 1.015 (1.005-1.030)
[2020-08-30 12:59] LABS: Urine Bacteria NONE SEEN /HPF (<20); Urine RBC <5 /HPF (NONE SEEN)
[2020-08-30] MEDS ORDERED: MAGNESIUM SULFATE 1 gm IVPB 1 GM/100 ML BAG IV ONE (13:04)
[2020-08-30] MEDS ORDERED: NA CHLORIDE 0.9% 1,000 ML ONE ×3 (13:04→19:44)
[2020-08-30] MEDS ORDERED: INSULIN -REGULAR HUMAN 50 UNIT/0.5 ML ML ONE ×2 (13:08→17:50)
[2020-08-30] MEDS ORDERED: MORPHINE 2 MG/ML SYR ONE ×2 (13:25→13:38)
--- NOTE | 2020-08-30 13:26 | RAD REPORT ---
EXAM DESCRIPTION: CT - Abdomen Pelvis W Contrast - 08/30/2020 12:49 pm CLINICAL HISTORY: ABD PAIN COMPARISON: Abdomen Pelvis W Contrast dated 05/03/2019 TECHNIQUE: Biphasic, helical CT imaging of the abdomen and pelvis was performed following 100 ml non -ionic IV contrast. No oral contrast administered. All CT scans are performed using dose optimization technique as appropriate and may include automated exposure control or mA/KV adjustment according to patient size. FINDINGS: No suspicious findings in the lung bases. The liver, spleen, and pancreas show no suspicious findings. Gallbladder and biliary tree are also wi thout suspicious finding. Small accessory splenic nodules are present. Renal function is symmetric. No hydronephrosis or mass lesion. Arterial tree calcifications are prese nt. Pyelonephritis is not suspected. However, the amount of respiratory motion does create heterogene ity of the renal parenchymal enhancement pattern. No bladder abnormalities. Fullness left adrenal gla nd is stable. An 18 millimeter right adrenal adenoma has not changed. No uterine abnormality seen. Th ere prominent vascular calcifications adjacent to the uterus. A 2 centimeter ovarian or paraovarian c yst in the right ovary has not changed since 2019. No dilated bowel loops or bowel wall thickening. Appendix is normal. No active bowel process seen. Di verticulosis is minimal. No free air, free fluid or inflammatory stranding. No hernia, mass or bulky lymphadenopathy. Prominent disc and bony degenerative changes are present. Left convex scoliosis seen. No acute or pat hologic bone process identified. Dense arterial tree calcifications are present. IMPRESSION: Contrast enhanced CT abdomen and pelvis showing no acute or emergent finding. There is heterogeneity of the renal parenchyma due to motion. Pyelonephritis is doubtful but not enti rely excluded. Correlation is needed with any clinical or laboratory abnormalities. Nonacute findings are detailed in the body of the report and are similar to 2019.
--- NOTE | 2020-08-30 14:35 | ER ---
Nurse's Notes [facility] Name: Indira Chavis Age: 65 yrs Sex: Female : 1955 Arrival Date: 08/30/2020 Time: 11: Bed 7 Private MD: Diagnosis: Altered mental status, unspecified;Diabetes mellitus due to underlying condition with hyperglycemia Presentation: 08/30 11:01 Chief complaint: EMS states: family reported AMS over the last 2-3 weeks but worse aa5 yesterday. Pt currently A\T\O x person only and anxious. Family also reported vomiting this morning to EMS. 11:01 Coronavirus screen: vomiting. Ebola Screen: Patient negative for fever greater than or aa5 equal to 101.5 degrees Fahrenheit, and additional compatible Ebola Virus Disease symptoms. Risk Assessment: Do you want to hurt yourself or someone else? Unable to obtain. Onset of symptoms was August 2020. 11:01 Acuity: KERMIT 2 aa5 11:01 Method Of Arrival: EMS: [facility] aa5 11:01 Care prior to arrival: Glucose check: 258. aa5 12:02 Initial Sepsis Screen: Does the patient meet any 2 criteria? No. Patient's initial jd3 sepsis screen is negative. Does the patient have a suspected source of infection? No. Patient's initial sepsis screen is negative. Historical: - Allergies: 11: No Known Allergies; aa5 - Home Meds: 11:02 atorvastatin Oral [Active]; Furosemide Oral [Active]; Levemir 100 unit/mL subcutaneous aa5 soln daily [Active]; lisinopril Oral [Active]; Metformin Oral [Active]; Metoprolol Tartrate Oral [Active]; - PMHx: 11:02 BLINDNESS; CAD; CHF; Diabetes - IDDM; High Cholesterol; Hypertension; Hypothyroidism; aa5 - Immunization history:: Adult Immunizations unknown. - Social history:: Smoking status: unknown. Screenin:00 Abuse screen: Denies threats or abuse. Nutritional screening: No deficits noted. jd3 Tuberculosis screening: No symptoms or risk factors identified. Fall Risk IV access (20 points). Ambulatory Aid- None/Bed Rest/Nurse Assist (0 pts). Gait- Normal/Bed Rest/Wheelchair (0 pts) Mental Status- Oriented to own ability (0 pts). Total Chapin Fall Scale indicates No Risk (0-24 pts). Assessment: 12:02 General: Appears uncomfortable, Behavior is cooperative, anxious. Pain: Complains of jd3 pain in abdomen Quality of pain is described as crampy, tender. Neuro: Level of Consciousness is awake, alert, obeys commands, confused, Oriented to person. Cardiovascular: Denies chest pain, Heart tones present Capillary refill < 3 seconds Patient's skin is warm and dry. Rhythm is regular. Respiratory: Airway is patent Respiratory effort is even, unlabored, Respiratory pattern is regular, symmetrical, Denies cough, shortness of breath. GI: Abdomen is round Bowel sounds present X 4 quads. Abd is soft X 4 quads Abdomen is tender to palpation X 4 quads. Reports lower abdominal pain, upper abdominal pain, nausea, vomiting. : No signs and/or symptoms were reported regarding the genitourinary system. EENT: No signs and/or symptoms were reported regarding the EENT system. Derm: Skin is intact, Skin is dry, Skin is normal, Skin temperature is warm. Musculoskeletal: Circulation, motion, and sensation intact. Range of motion: intact in all extremities. 12:43 Reassessment: Patient and/or family updated on plan of care and expected duration. Pain jd3 level reassessed. daughter: Cydney Alex called and notified of pt status. pt A\T\O X 1. Patient states feeling better. 13:31 Reassessment: Patient appears in no apparent distress at this time. Patient and/or jd3 family updated on plan of care and expected duration. Pain level reassessed. pt reporting continued abdominal pain, provider notified, medicated as ordered. pt calling for family members that is not there asking for help. A\T\O X 1, even and unlabored respirations Patient states symptoms have not improved. 14:30 Reassessment: Patient appears in no apparent distress at this time. No changes from jd3 previously documented assessment. Patient and/or family updated on plan of care and expected duration. Pain level reassessed. pt continues to call out for family as if they are present, pt notified there are no visitors. pt continues to call out. 15:30 Reassessment: Patient appears in no apparent distress at this time. Patient and/or jd3 family updated on plan of care and expected duration. Pain level reassessed. pt appears asleep, resting in bed with even and unlabored respirations. 17:07 Reassessment: Patient appears in no apparent distress at this time. No changes from jd3 previously documented assessment. Patient and/or family updated on plan of care and expected duration. Pain level reassessed. charting continued in [facility]. Vital Signs: 11:01 Temp 98.4(O); aa5 12:01 BP 151 / 73; Pulse 84; Resp 20 S; Pulse Ox 98% on R/A; jd3 12:44 BP 144 / 60; Pulse 87; Resp 17 S; Pulse Ox 96% on R/A; jd3 13:32 BP 168 / 70; Pulse 87; Resp 17 S; Pulse Ox 99% on R/A; jd3 15:58 BP 149 / 68; Pulse 89; Resp 17 S; Pulse Ox 99% on R/A; jd3 17:07 BP 160 / 71; Pulse 90; Resp 19 S; Pulse Ox 99% on R/A; jd3 ED Course: 11:01 Patient arrived in ED. aa5 11:01 Anthony Reeves PA is PHCP. cp 11:01 London Madrid MD is Attending Physician. cp 11:01 Arm band placed on. aa5 11:05 Triage completed. aa5 11:19 Felix Daigle, KELY is Primary Nurse. jd3 11:22 EKG done, by ED staff, reviewed by Anthony WING. eb 11:26 XRAY Chest (1 view) In Process Unspecified. EDMS 11:45 Inserted saline lock: 22 gauge in right hand, using aseptic technique. Blood collected. jd3 12:01 Patient has correct armband on for positive identification. Bed in low position. Call j light in reach. Side rails up X2. Pulse ox on. NIBP on. Warm blanket given. Verbal reassurance given. 12:04 CT Head Brain wo Cont In Process Unspecified. EDMS 12:49 CT Abd/Pelvis - IV Contrast Only In Process Unspecified. EDMS 13:00 Pillow given. jd3 14:33 Uriel Zepeda MD is Hospitalizing Provider. cp 15:29 Warm blanket given. Verbal reassurance given. jd3 15:29 No provider procedures requiring assistance completed. Patient admitted, IV remains in jd3 place. 08/31 08:19 Report received from KELY Mariano. jl7 09/01 07:12 Primary Nurse role handed off by Felix Daigle RN tw2 07:12 Toña Hathaway, KELY is Primary Nurse. tw2 Administered Medications: 08/30 11:59 Drug: Zofran (Ondansetron) 4 mg Route: IVP; Site: right hand; jd3 12:55 Follow up: Response: No adverse reaction jd3 12:29 CANCELLED (Physician Discretion): NS 0.9% (30 ml/kg) 30 ml/kg IV at bolus once; Sepsis cp Protocol 12:56 Drug: NovoLIN R 7 units {Co-Signature: bp (Filemon Carrion RN).} Route: Sub-Q; Site: [facility] abdomen; 13:50 Follow up: Response: No adverse reaction jd3 13:12 Drug: NS 0.9% 1000 ml Route: IV; Rate: 1000 ml/hr; Site: right hand; jd3 14:10 Follow up: Response: No adverse reaction; IV Status: Completed infusion; IV Intake: jd3 1000ml 13:12 Drug: Magnesium Sulfate 1 grams Route: IVPB; Infused Over: 1 hrs; Site: right hand; jd3 14:10 Follow up: Response: No adverse reaction; IV Status: Completed infusion jd3 13:13 Drug: morphine 2 mg Route: IVP; Site: right hand; jd3 13:28 Follow up: Response: No adverse reaction; RASS: Restless (+1) jd3 13:27 Drug: morphine 2 mg Route: IVP; Site: right hand; jd3 14:25 Follow up: Response: No adverse reaction; RASS: Alert and Calm (0) jd3 15:00 Drug: Ativan 1 mg Route: IVP; Site: right hand; bp 16:00 Follow up: Response: No adverse reaction jd3 19:30 Drug: NS 0.9% 1000 ml Route: IV; Rate: 1000 ml/hr; Site: right antecubital; ea Intake: 14:10 IV: 1000ml; Total: 1000ml. jd3 Outcome: 14:34 Decision to Hospitalize by Provider. cp 17:07 Admitted to ER Hold. Please see [facility] for further documentation. jd3 17:07 Condition: stable 17:07 Instructed on the need for admit. 09/01 15:26 Patient left the ED. tw2 Signatures: Dispatcher [employer] EDMS Freda Holcomb, RN RN aa5 Anthony Reeves PA PA cp Wise, Tara RN RN tw2 Fab Shaw, RN RN jl7 Montserrat Isbell, RN RN Felix Thorpe RN RN jd3 Filemon Carrion RN RN bp Maritza Vasquez RN bp Corrections: (The following items were deleted from the chart) 08/30 11:05 11:01 Chief complaint: EMS states: family reported AMS over the last 2-3 weeks but aa5 worse yesterday. Pt currently A\T\O x person only and anxious. aa5 15:57 12:02 Neuro: Level of Consciousness is awake, alert, obeys commands, confused, Oriented jd3 to person, place, jd3 15:57 12:43 Reassessment: Patient and/or family updated on plan of care and expected jd3 duration. Pain level reassessed. daughter: Cydney Alex called and notified of pt status. Patient states feeling better. jd3 15:57 13:31 Reassessment: Patient appears in no apparent distress at this time. Patient jd3 and/or family updated on plan of care and expected duration. Pain level reassessed. pt reporting continued abdominal pain, provider notified, medicated as ordered. Patient states symptoms have not improved. jd3
--- NOTE | 2020-08-30 14:35 | EDPHYS ---
Physician Documentation [facility] Name: Indira Chavis Age: 65 yrs Sex: Female : 1955 Arrival Date: 08/30/2020 Time: 11:01 Bed 7 Private MD: ED Physician London Madrid HPI: 08/30 11:10 This 65 yrs old Female presents to ER via EMS with complaints of Altered cp Mental Status. 11:10 The patient presents with confusion. Onset: The symptoms/episode began/occurred cp yesterday. Possible causes: unknown. Historical: - Allergies: 11:02 No Known Allergies; aa5 - Home Meds: 11:02 atorvastatin Oral [Active]; Furosemide Oral [Active]; Levemir 100 unit/mL subcutaneous aa5 soln daily [Active]; lisinopril Oral [Active]; Metformin Oral [Active]; Metoprolol Tartrate Oral [Active]; - PMHx: 11:02 BLINDNESS; CAD; CHF; Diabetes - IDDM; High Cholesterol; Hypertension; Hypothyroidism; aa5 - Immunization history:: Adult Immunizations unknown. - Social history:: Smoking status: unknown. ROS: 11:15 Constitutional: Negative for fever. cp 11:15 Eyes: Negative for injury, pain, redness, and discharge. cp 11:15 Cardiovascular: Negative for chest pain. 11:15 Respiratory: Negative for cough, shortness of breath, wheezing. 11:15 Abdomen/GI: Positive for abdominal pain, Negative for vomiting, diarrhea, constipation. 11:15 Neuro: Positive for altered mental status, Negative for headache, weakness. 11:15 All other systems are negative. Exam: 11:20 ECG was reviewed by the Attending Physician. cp 11:22 Constitutional: The patient appears in no acute distress, alert, awake, cp non-diaphoretic, non-toxic, well developed, well nourished. 11:22 Head/Face: Normocephalic, atraumatic. cp 11:22 Eyes: Periorbital structures: appear normal, Conjunctiva: normal, no exudate, no injection, Sclera: no appreciated abnormality, Lids and lashes: appear normal, bilaterally. 11:22 ENT: External ear(s): are unremarkable, Nose: is normal, Mouth: Lips: dry, Oral mucosa: moist, Posterior pharynx: Airway: no evidence of obstruction, patent. 11:22 Neck: ROM/movement: is normal, is supple, without pain, no range of motions limitations, no meningismus. 11:22 Chest/axilla: Inspection: normal, Palpation: is normal, no crepitus, no tenderness. 11:22 Cardiovascular: Rate: normal, Rhythm: regular, Edema: is not appreciated, JVD: is not appreciated. 11:22 Respiratory: the patient does not display signs of respiratory distress, Respirations: normal, no use of accessory muscles, no retractions, labored breathing, is not present, Breath sounds: are clear throughout, no decreased breath sounds, no stridor, no wheezing. 11:22 Abdomen/GI: Inspection: abdomen appears normal, Bowel sounds: active, all quadrants, Palpation: soft, in all quadrants, mild abdominal tenderness, in the right lower quadrant and left lower quadrant, rebound tenderness, is not appreciated, involuntary guarding, is not appreciated. 11:22 Back: CVA tenderness, is absent. 11:22 Skin: no rash present. 11:22 Neuro: Orientation: to person, Not oriented to time, situation, Mentation: able to follow commands, confused, Motor: moves all fours, strength is normal. Vital Signs: 11:01 Temp 98.4(O); aa5 12:01 BP 151 / 73; Pulse 84; Resp 20 S; Pulse Ox 98% on R/A; jd3 12:44 BP 144 / 60; Pulse 87; Resp 17 S; Pulse Ox 96% on R/A; jd3 13:32 BP 168 / 70; Pulse 87; Resp 17 S; Pulse Ox 99% on R/A; jd3 15:58 BP 149 / 68; Pulse 89; Resp 17 S; Pulse Ox 99% on R/A; jd3 17:07 BP 160 / 71; Pulse 90; Resp 19 S; Pulse Ox 99% on R/A; jd3 MDM: 11:04 Patient medically screened. cp 13:57 Physician consultation: Uriel Zepeda MD was called at 13:58, left message on voicemail. cp 14:00 Data reviewed: vital signs, nurses notes, lab test result(s), EKG, radiologic studies, cp CT scan, plain films. 14:00 Test interpretation: by ED physician or midlevel provider: ECG, plain radiologic cp studies. 01/09 11:04 Order name: Basic Metabolic Panel; Complete Time: 12:19 cp 08/30 13:33 Interpretation: Normal except: NA 135; CL 96; CO2 20; GLUC 247; GFR 45. cp 08/30 11:04 Order name: CBC with Diff; Complete Time: 11:59 cp 08/30 12:02 Interpretation: Normal except: KATIE% 74.4. cp 08/30 11:04 Order name: LFT's; Complete Time: 12:19 cp 08/30 13:34 Interpretation: Normal except: AST < 3; GLOB 4.0; A/G 1.0. cp 08/30 11:04 Order name: Magnesium; Complete Time: 12:19 cp 08/30 13:36 Interpretation: Normal except: MG 1.3. cp 08/30 11:04 Order name: NT PRO-BNP; Complete Time: 12:19 cp 08/30 11:04 Order name: PT-INR; Complete Time: 12:19 cp 08/30 11:04 Order name: Troponin (emerg Dept Use Only); Complete Time: 12:19 cp 08/30 11:04 Order name: Urine Microscopic Only; Complete Time: 13:09 cp 08/30 11:04 Order name: Lactate; Complete Time: 12:19 cp 08/30 11:04 Order name: Procalcitonin; Complete Time: 12:32 cp 08/30 11:04 Order name: Blood Culture Adult (2) cp 08/30 12:53 Order name: Urine Dipstick--Ancillary (enter results); Complete Time: 13:09 eb 08/30 13:09 Interpretation: Normal except: UGLUC 2+; UKET 3+. cp 08/30 13:49 Order name: SARS-COV-2 RT PCR; Complete Time: 13:55 EDMS 08/30 14:47 Order name: Basic Metabolic Panel EDMS 08/30 14:47 Order name: Basic Metabolic Panel EDMS 08/30 14:47 Order name: CBC with Automated Diff EDMS 08/30 14:47 Order name: CBC with Automated Diff EDMS 08/30 16:09 Order name: Lactate Sepsis 2 HR Follow-up; Complete Time: 18:45 EDMS 08/30 16:32 Order name: Hemoglobin A1c; Complete Time: 18:45 EDMS 08/30 17:42 Order name: Glucose, Ancillary Testing; Complete Time: 18:45 EDMS 08/30 22:33 Order name: Glucose, Ancillary Testing EDMS 08/31 05:19 Order name: CBC with Automated Diff EDMS 08/31 06:02 Order name: Comprehensive Metabolic Panel EDMS 08/31 06:02 Order name: Magnesium EDMS 08/31 06:04 Order name: Lipid Profile EDMS 08/31 08:04 Order name: Glucose, Ancillary Testing EDMS 08/31 11:44 Order name: Glucose, Ancillary Testing EDMS 08/31 15:51 Order name: RPR EDMS 08/31 16:36 Order name: Vitamin B12 Level EDMS 08/30 11:04 Order name: CT Head Brain wo Cont; Complete Time: 12:19 cp 08/30 11:04 Order name: XRAY Chest (1 view); Complete Time: 12:19 cp 08/30 11:04 Order name: EKG; Complete Time: 11:05 cp 08/30 11:04 Order name: Cardiac monitoring; Complete Time: 11:19 cp 08/30 11:04 Order name: EKG - Nurse/Tech; Complete Time: 11:19 cp 08/30 11:04 Order name: IV Saline Lock; Complete Time: 11:44 cp 08/30 11:04 Order name: Labs collected and sent; Complete Time: 11:44 cp 08/30 11:04 Order name: O2 Per Protocol; Complete Time: 11:20 cp 08/30 11:04 Order name: O2 Sat Monitoring; Complete Time: 11:19 cp 08/30 11:04 Order name: Cath; Complete Time: 12:42 cp 08/30 11:04 Order name: Urine Dipstick-Ancillary (obtain specimen); Complete Time: 12:42 cp 08/30 11:48 Order name: Vital Signs; Complete Time: 12:00 cp 08/30 12:21 Order name: CT Abd/Pelvis - IV Contrast Only; Complete Time: 13:28 cp 08/30 13:31 Interpretation: Report reviewed. cp 08/30 14:47 Order name: Consistent Carb (ADA) 1800 He EDMS 08/31 17:04 Order name: Glucose, Ancillary Testing EDMS 09/01 05:30 Order name: CBC with Automated Diff EDMS 09/01 05:46 Order name: Comprehensive Metabolic Panel EDMS 09/01 05:46 Order name: Thyroid Stimulating Hormone EDMS 09/01 06:00 Order name: T4 Free EDMS 09/01 08:07 Order name: Glucose, Ancillary Testing EDMS 09/01 12:15 Order name: Glucose, Ancillary Testing EDMS EC:20 Rate is 84 beats/min. Rhythm is regular. QRS interval is normal. QT interval is normal. cp T waves are Inverted in leads I, aVL. Interpreted by me. Reviewed by me. Administered Medications: 11:59 Drug: Zofran (Ondansetron) 4 mg Route: IVP; Site: right hand; jd3 12:55 Follow up: Response: No adverse reaction jd3 12:29 CANCELLED (Physician Discretion): NS 0.9% (30 ml/kg) 30 ml/kg IV at bolus once; Sepsis cp Protocol 12:56 Drug: NovoLIN R 7 units {Co-Signature: bp (Filemon Carrion RN).} Route: Sub-Q; Site: [facility] abdomen; 13:50 Follow up: Response: No adverse reaction jd3 13:12 Drug: NS 0.9% 1000 ml Route: IV; Rate: 1000 ml/hr; Site: right hand; jd3 14:10 Follow up: Response: No adverse reaction; IV Status: Completed infusion; IV Intake: jd3 1000ml 13:12 Drug: Magnesium Sulfate 1 grams Route: IVPB; Infused Over: 1 hrs; Site: right hand; jd3 14:10 Follow up: Response: No adverse reaction; IV Status: Completed infusion jd3 13:13 Drug: morphine 2 mg Route: IVP; Site: right hand; jd3 13:28 Follow up: Response: No adverse reaction; RASS: Restless (+1) jd3 13:27 Drug: morphine 2 mg Route: IVP; Site: right hand; jd3 14:25 Follow up: Response: No adverse reaction; RASS: Alert and Calm (0) jd3 15:00 Drug: Ativan 1 mg Route: IVP; Site: right hand; bp 16:00 Follow up: Response: No adverse reaction jd3 19:30 Drug: NS 0.9% 1000 ml Route: IV; Rate: 1000 ml/hr; Site: right antecubital; ea Disposition: 08/30/20 14:34 Hospitalization ordered by Uriel Zepeda for Inpatient Admission. Preliminary diagnosis are Altered mental status, unspecified, Diabetes mellitus due to underlying condition with hyperglycemia. - Bed requested for [facility] ER HOLD. - Status is Inpatient Admission. tw2 - Condition is Fair. - Problem is new. - Symptoms are unchanged. Addendum: 09/03/2020 07:14 Co-signature as Attending Physician, London Madrid MD. r n Signatures: Dispatcher [employer] EDOH London Madrid MD MD rn Calderon, Audri, RN RN aa5 Anthony Reeves PA PA cp Toña Hathaway RN RN tw2 Montserrat Isbell, RN RN ea Felix Daigle RN RN jFilemon Yusuf RN RN bp Filemon Carrion RN bp Corrections: (The following items were deleted from the chart) 08/30 12:28 11:05 CORONAVIRUS+.MARKZ ordered. [facility] 12:29 12:21 NS 0.9% (30 ml/kg) 30 ml/kg IV at bolus once; Sepsis Protocol ordered. [facility] 16:07 14:34 Hospitalization Ordered by Uriel Zepeda MD for Inpatient Admission. Preliminary aa5 diagnosis is Altered mental status, unspecified; Diabetes mellitus due to underlying condition with hyperglycemia. Bed requested for Telemetry/MedSurg (Inpatient). Status is Inpatient Admission. Condition is Fair. Problem is new. Symptoms are unchanged. 09/01 15:26 08/30 16:07 08/30/2020 14:34 Hospitalization Ordered by Uriel Zepeda MD for Inpatient tw2 Admission. Preliminary diagnosis is Altered mental status, unspecified; Diabetes mellitus due to underlying condition with hyperglycemia. Bed requested for [facility] ER HOLD. Status is Inpatient Admission. Condition is Fair. Problem is new. Symptoms are unchanged. aa5
[2020-08-30] MEDS ORDERED: ONDANSETRON 4 MG/2 ML VIAL IV PRN ×2 (14:44→15:06)
[2020-08-30] MEDS ORDERED: GLUCAGON 1 MG/VIAL IM PRN ×2 (14:45→15:06)
--- NOTE | 2020-08-30 14:50 | P.HP ---
Certification for Inpatient Patient admitted to: Observation With expected LOS: <2 Midnights Patient will require the following post-hospital care: None Practitioner: I am a practitioner with admitting privileges, knowledge of patient current condition, hospital course, and medical plan of care. Services: Services provided to patient in accordance with Admission requirements found in Title 42 Section 412.3 of the Code of Federal Regulations Patient History Date of Service: 08/30/20 Primary Care Provider: Duane Reason for admission: Gastroenteritis History of Present Illness: Patient is here with one day of nausea and vomiting. The patient was at home. Had not eaten for a day. Was complaining of constipation. The patient was had some food this morning. She threw up twice. She was confused. Did not recognize her daughter. They called an EMS. She had a negative head CT and abdomen. She is slightly confused. Home medications list reviewed: Yes - Past Medical/Surgical History Diabetic: Yes Review of Systems is unable to be obtained Gastrointestinal: Nausea, Vomiting, Abdominal Pain Physical Examination - Physical Exam General: Alert, In no apparent distress HEENT: Atraumatic, PERRLA, Mucous membr. moist/pink, EOMI, Sclerae nonicteric Neck: Supple, 2+ carotid pulse no bruit, No LAD, Without JVD or thyroid abnormality Respiratory: Clear to auscultation bilaterally, Normal air movement Cardiovascular: Regular rate/rhythm, Normal S1 S2 Gastrointestinal: Normal bowel sounds, No tenderness Musculoskeletal: No tenderness Integumentary: No rashes Neurological: Normal gait, Normal speech, Normal strength at 5/5 x4 extr, Normal tone, Normal affect Lymphatics: No axilla or inguinal lymphadenopathy - Studies Laboratory Data (last 24 hrs) 08/30/20 11:40: PT 12.7 H, INR 1.08 08/30/20 11:40: WBC 9.9, Hgb 13.7, Hct 41.3, Plt Count 223 08/30/20 11:40: Sodium 135 L, Potassium 3.6, BUN 18, Creatinine 1.19, Glucose 247 H, Magnesium 1.3 L*, Total Bilirubin 0.7, AST < 3 L, ALT 12, Alkaline Phosphatase 77 Assessment and Plan - Problems (Diagnosis) (1) Gastroenteritis Current Visit: Yes Status: Acute Plan: negative CT scan. Will start him on fluids. Check stool studies. (2) DM2 (diabetes mellitus, type 2) Current Visit: Yes Status: Acute Plan: hold levemir. Will cover with a sliding scale. 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 Will hold bp meds. Qualifiers: Hypertension type: essential hypertension Qualified Code(s): I10 - Essential (primary) hypertension (4) Hypothyroidism Current Visit: Yes Status: Acute Plan: check tsh Qualifiers: Hypothyroidism type: unspecified Qualified Code(s): E03.9 - Hypothyroidism, unspecified (5) Hyperlipidemia Current Visit: Yes Status: Acute Plan: check fasting labs Qualifiers: Hyperlipidemia type: unspecified Qualified Code(s): E78.5 - Hyperlipidemia, unspecified Discharge Plan: Home Plan to discharge in: 48 Hours - Advance Directives Does patient have a Living Will: No Does patient have a Durable POA for Healthcare: No - Code Status/Comfort Care Code Status Assessed: No Physician Review: Patient Assessed, Agree with Above Assessment and Plan Critical Care: No Time Spent Managing Pts Care (In Minutes): 50
[2020-08-30] MEDS ORDERED: D50W 25 GM/50 ML VIAL IV PRN ×2 (14:55→15:14)
[2020-08-30] MEDS ORDERED: LORazepam 2 MG/ML VIAL ONE (14:58)
[2020-08-30] MEDS ORDERED: HYDRALAZINE HCL 20 MG/ML VIAL IV PRN (15:06)
[2020-08-30] MEDS ORDERED: INSULIN -REGULAR HUMAN 50 UNIT/0.5 ML ML SQ SCH (16:30)
[2020-08-30] MEDS: NA CHLORIDE 0.9% 1,000 ML IV SCH (17:31)
[2020-08-30] MEDS: INSULIN -REGULAR HUMAN 50 UNIT/0.5 ML ML SQ SCH ×2 (17:44→21:00)
[2020-08-30 17:50] VITALS: BMI 43.9
[2020-08-30] MEDS ORDERED: ZOLPIDEM TARTRATE 10 MG TABLET PO ONE (21:57)
[2020-08-30] MEDS ORDERED: ZOLPIDEM TARTRATE 5 MG TABLET ONE (22:17)
[2020-08-31 05:18] LABS: Basophils % 0.2 % (0-1.3); Hematocrit 38.6 % (36.0-45.0); Lymphocytes % 22.7 % (15.3-44.8); MPV 9.1 fL (7.6-11.3); RBC Red Blood Cell Count 4.16 M/uL (3.86-4.86)
[2020-08-31 05:35] LABS: Albumin 3.4 g/dL (3.4-5.0); Bilirubin Total 0.5 mg/dL (0.2-1.0); Magnesium 1.5 mg/dL (1.8-2.4); Potassium 3.6 mmol/L (3.5-5.1)
[2020-08-31 06:03] LABS: Potassium 3.6 mmol/L (3.5-5.1)
--- NOTE | 2020-08-31 07:26 | EKG ---
Test Date: 2020-08-30 Test Time: 11:09:51 Small Animal Veterinarian: SHERON MEASUREMENT RESULTS: Intervals: Rate: 84 TN: QRSD: 80 QT: 374 QTc: 441 [place]: P: TN: QRS: -32 T: 141 INTERPRETIVE STATEMENTS: Accelerated Junctional rhythm Left axis deviation Minimal voltage criteria for LVH, may be normal variant Possible Lateral infarct, age undetermined Abnormal ECG Compared to ECG 04/25/2020 18:34:12 Accelerated junctional rhythm now present Myocardial infarct finding now present Sinus bradycardia no longer present Early repolarization no longer present Electronically Signed On 08-31-20 07:24:07 ALGEBRA TEACHER by Yomi Cid
[2020-08-31] MEDS: INSULIN -REGULAR HUMAN 50 UNIT/0.5 ML ML SQ SCH ×3 (07:30→16:30)
[2020-08-31] MEDS: PANTOPRAZOLE 40MG TABLET PO SCH (07:30)
[2020-08-31] MEDS ORDERED: ACETAMINOPHEN 325 MG TABLET ONE ×2 (08:08→16:57)
[2020-08-31] MEDS ORDERED: INSULIN -REGULAR HUMAN 50 UNIT/0.5 ML ML ONE ×2 (08:12→12:05)
[2020-08-31] MEDS: ACETAMINOPHEN 325 MG TABLET PO PRN ×2 (08:17→16:15)
[2020-08-31] MEDS ORDERED: Magnesium Sulfate 2gm IVPB 2 G/50 ML BAG IV ONE (08:26)
[2020-08-31] MEDS ORDERED: PANTOPRAZOLE 40MG TABLET PO ONE (08:27)
[2020-08-31] MEDS ORDERED: ONDANSETRON 4 MG/2 ML VIAL ONE (08:28)
[2020-08-31] MEDS ORDERED: HALOPERIDOL LACT 5 MG/ML INJ IV ONE (08:35)
[2020-08-31] MEDS ORDERED: HALOPERIDOL LACT 5 MG/ML INJ ONE (09:52)
--- NOTE | 2020-08-31 13:32 | P.PN ---
Subjective Date of Service: 08/31/20 Primary Care Provider: Duane Chief Complaint: Gastroenteritis Subjective: No new changes (patients daughter at bedside) Review of Systems is unable to be obtained Neurological: Confusion Physical Examination - Vital Signs Temperature: 97.2 F Blood Pressure: 151/78 Pulse: 89 Respirations: 15 Pulse Ox (%): 99 - Physical Exam General: Delirious HEENT: Atraumatic, PERRLA, EOMI Neck: Supple, JVD not distended Respiratory: Clear to auscultation bilaterally, Normal air movement Cardiovascular: Regular rate/rhythm, Normal S1 S2 Gastrointestinal: Normal bowel sounds, No tenderness Musculoskeletal: No tenderness Integumentary: No rashes Neurological: Normal speech, Normal tone, Normal affect Lymphatics: No axilla or inguinal lymphadenopathy Assessment & Plan - Problems (Diagnosis) (1) Delirium due to another medical condition Current Visit: Yes Status: Acute Plan: Patient continues to be confused. Will start her on haloperidol and donepzil. Consult Dr. Dorantes. Have spent approx 20min discussing her care with Daughter. Mrs Alex. Recommended she look up our local dementia association Which helps families care for dementia patients. Dr Dorantes is an associate of that group. (2) Gastroenteritis Current Visit: Yes Status: Acute Plan: negative CT scan. Will start him on fluids. Check stool studies. 08/31 She is able to tolerate a few bites. She has no further vomitting (3) DM2 (diabetes mellitus, type 2) Current Visit: Yes Status: Acute Plan: hold levemir. Will cover with a sliding scale. Qualifiers: Diabetes mellitus half-way insulin use: with terminal makeup operator use Diabetes mellitus complication status: without complication Qualified Code(s): E11.9 - Type 2 diabetes mellitus without complications; Z79.4 - technician terminal and repeater (current) use of insulin (4) HTN (hypertension) Current Visit: Yes Status: Acute Plan: Will treat hydralazine. Will hold bp meds. Qualifiers: Hypertension type: essential hypertension Qualified Code(s): I10 - Essential (primary) hypertension (5) Hypothyroidism Current Visit: Yes Status: Acute Plan: check tsh Qualifiers: Hypothyroidism type: unspecified Qualified Code(s): E03.9 - Hypothyroidism, unspecified (6) Hyperlipidemia Current Visit: Yes Status: Acute Plan: check fasting labs Qualifiers: Hyperlipidemia type: unspecified Qualified Code(s): E78.5 - Hyperlipidemia, unspecified Discharge Plan: Home Plan to discharge in: 48 Hours - Code Status/Comfort Care Code Status Assessed: No Physician Review: Patient Assessed, Agree with Above Assessment and Plan Critical Care: No Time Spent Managing Pts Care (In Minutes): 35
[2020-08-31] MEDS: DIPHENHYDRAMINE 25 MG TAB/CAP PO PRN (17:30)
[2020-08-31] MEDS ORDERED: DIPHENHYDRAMINE 25 MG TAB/CAP ONE (17:38)
[2020-08-31] MEDS ORDERED: DIPHENHYDRAMINE 25 MG TAB/CAP PO PRN (18:45)
[2020-08-31] MEDS ORDERED: DONEPEZIL HCL 5 MG TAB PO SCH (21:00)
[2020-08-31] MEDS ORDERED: DONEPEZIL HCL 5 MG TAB ONE (21:52)
[2020-09-01 00:07] LABS: RPR (Rapid Plasma Reagin) NON-REACT (NON-REACT)
[2020-09-01 05:08] LABS: Basophils % 0.4 % (0-1.3); Hematocrit 38.6 % (36.0-45.0); Lymphocytes % 20.4 % (15.3-44.8); MPV 9.3 fL (7.6-11.3); RBC Red Blood Cell Count 4.15 M/uL (3.86-4.86)
[2020-09-01 05:35] LABS: Albumin 3.6 g/dL (3.4-5.0); Bilirubin Total 0.6 mg/dL (0.2-1.0); Potassium 3.3 mmol/L (3.5-5.1); Protein, Total 7.2 g/dL (6.4-8.2)
[2020-09-01 05:45] LABS: Thyroid Stimulating Hormone 5.22 uIU/mL (0.360-3.740)
[2020-09-01] MEDS: PANTOPRAZOLE 40MG TABLET PO SCH (07:30)
[2020-09-01] MEDS: NA CHLORIDE 0.9% 1,000 ML IV SCH (08:00)
[2020-09-01] MEDS: INSULIN -REGULAR HUMAN 50 UNIT/0.5 ML ML SQ SCH ×2 (08:30→12:11)
[2020-09-01] MEDS ORDERED: INSULIN -REGULAR HUMAN 50 UNIT/0.5 ML ML ONE ×2 (08:35→12:24)
[2020-09-01] MEDS ORDERED: PANTOPRAZOLE 40MG TABLET PO ONE (08:36)
--- NOTE | 2020-09-01 09:21 | P.PN ---
Subjective Date of Service: 09/01/20 Primary Care Provider: Duane Chief Complaint: Gastroenteritis Subjective: Improving (A bit more calm. She does wander around the ER) Review of Systems 10-point ROS is otherwise unremarkable Physical Examination - Vital Signs Temperature: 98 F Blood Pressure: 122/68 Pulse: 70 Respirations: 18 Pulse Ox (%): 95 - Physical Exam General: Delirious HEENT: Atraumatic, PERRLA, EOMI Neck: Supple, JVD not distended Respiratory: Clear to auscultation bilaterally, Normal air movement Cardiovascular: Regular rate/rhythm, Normal S1 S2 Gastrointestinal: Normal bowel sounds, No tenderness Musculoskeletal: No tenderness Integumentary: No rashes Neurological: Normal speech, Normal tone, Normal affect Lymphatics: No axilla or inguinal lymphadenopathy Assessment & Plan - Problems (Diagnosis) (1) Delirium due to another medical condition Current Visit: Yes Status: Acute Plan: Patient continues to be confused. Will start her on haloperidol and donepzil. Consult Dr. Dorantes. Have spent approx 20min discussing her care with Daughter. Mrs Alex. Recommended she look up our local dementia association Which helps families care for dementia patients. Dr Dorantes is an associate of that group. 09/01 Have discussed the patient with Dr. Dorantes. Possible add depakote. We may able to discharge today. Will await Dr. Underwood input. (2) Gastroenteritis Current Visit: Yes Status: Acute Plan: negative CT scan. Will start him on fluids. Check stool studies. 08/31 She is able to tolerate a few bites. She has no further vomitting (3) DM2 (diabetes mellitus, type 2) Current Visit: Yes Status: Acute Plan: hold levemir. Will cover with a sliding scale. Qualifiers: Diabetes mellitus fdc insulin use: with fdc use Diabetes mellitus complication status: without complication Qualified Code(s): E11.9 - Type 2 diabetes mellitus without complications; Z79.4 - oil heaterman (current) use of insulin (4) HTN (hypertension) Current Visit: Yes Status: Acute Plan: Will treat hydralazine. Will hold bp meds. Qualifiers: Hypertension type: essential hypertension Qualified Code(s): I10 - Essential (primary) hypertension (5) Hypothyroidism Current Visit: Yes Status: Acute Plan: check tsh Qualifiers: Hypothyroidism type: unspecified Qualified Code(s): E03.9 - Hypothyroidism, unspecified (6) Hyperlipidemia Current Visit: Yes Status: Acute Plan: check fasting labs Qualifiers: Hyperlipidemia type: unspecified Qualified Code(s): E78.5 - Hyperlipidemia, unspecified Discharge Plan: Home Plan to discharge in: 24 Hours - Code Status/Comfort Care Code Status Assessed: No Physician Review: Patient Assessed, Agree with Above Assessment and Plan Critical Care: No Time Spent Managing Pts Care (In Minutes): 30
[2020-09-01 10:55] VITALS: O2SAT 94
[2020-09-01 13:13] VITALS: BP 155/68; TEMP 97.9
--- NOTE | 2020-09-01 16:50 | P.DS ---
Admission Date: 08/30/20 Discharge Date: 09/01/20 Primary Care Provider: Duane Disposition: ROUTINE DISCHARGE Discharge Condition: GOOD Reason for Admission: Gastroenteritis - Problems (1) Delirium due to another medical condition Status: Acute (2) Gastroenteritis Status: Acute (3) DM2 (diabetes mellitus, type 2) Status: Acute Qualifiers: Diabetes mellitus terminal block assembler insulin use: with terminal block assembler use Diabetes mellitus complication status: without complication Qualified Code(s): E11.9 - Type 2 diabetes mellitus without complications; Z79.4 - intermediate frame tender (current) use of insulin (4) HTN (hypertension) Status: Acute Qualifiers: Hypertension type: essential hypertension Qualified Code(s): I10 - Essential (primary) hypertension (5) Hypothyroidism Status: Acute Qualifiers: Hypothyroidism type: unspecified Qualified Code(s): E03.9 - Hypothyroidism, unspecified (6) Hyperlipidemia Status: Acute Qualifiers: Hyperlipidemia type: unspecified Qualified Code(s): E78.5 - Hyperlipidemia, unspecified Brief History of Present Illness: Patient is here with one day of nausea and vomiting. The patient was at home. Had not eaten for a day. Was complaining of constipation. The patient was had some food this morning. She threw up twice. She was confused. Did not recognize her daughter. They called an EMS. She had a negative head CT and abdomen. She is slightly confused. Hospital Course: Patient was admitted to the hospital. She was started on fluids Became more delirious and agitated. This was despite no sedation or medications that could cause delirium. She was started on haloperidol and donepezil. Had a long discussion with her daughter. She was kept in house as she was not safe for discharge. Was seen this morning by Dr. Dorantes. will discharge her on donepezil. Will have her follow up with Dr. Dorantes. She can choose to follow up with me or Dr Dill. Thank you for allowing us to take part in her care. Vital Signs/Physical Exam: Temp Pulse Resp BP Pulse Ox 97.9 F 79 18 155/68 H 96 09/01/20 12:00 09/01/20 12:00 09/01/20 12:00 09/01/20 12:00 09/01/20 12:00 General: Alert, In no apparent distress HEENT: Atraumatic, PERRLA, EOMI Neck: Supple, JVD not distended Respiratory: Clear to auscultation bilaterally, Normal air movement Cardiovascular: Regular rate/rhythm, Normal S1 S2 Gastrointestinal: Normal bowel sounds, No tenderness Musculoskeletal: No tenderness Integumentary: No rashes Neurological: Normal speech, Normal tone, Normal affect Lymphatics: No axilla or inguinal lymphadenopathy Laboratory Data at Discharge: WBC 9.7 K/uL (4.3-10.9) 09/01/20 04:45 Hgb 13.0 g/dL (12.0-15.0) 09/01/20 04:45 Hct 38.6 % (36.0-45.0) 09/01/20 04:45 Plt Count 178 K/uL (152-406) 09/01/20 04:45 PT 12.7 SECONDS (9.5-12.5) H 08/30/20 11:40 INR 1.08 08/30/20 11:40 Sodium 138 mmol/L (136-145) 09/01/20 04:45 Potassium 3.3 mmol/L (3.5-5.1) L 09/01/20 04:45 BUN 7 mg/dL (7-18) 09/01/20 04:45 Creatinine 0.84 mg/dL (0.55-1.3) 09/01/20 04:45 Glucose 172 mg/dL (74-106) H 09/01/20 04:45 Magnesium 1.5 mg/dL (1.8-2.4) L 08/31/20 05:05 Total Bilirubin 0.6 mg/dL (0.2-1.0) 09/01/20 04:45 AST 20 U/L (15-37) 09/01/20 04:45 ALT 12 U/L (12-78) 09/01/20 04:45 Alkaline Phosphatase 66 U/L (45-117) 09/01/20 04:45 Triglycerides 124 mg/dL (<150) 08/31/20 05:05 Cholesterol 116 mg/dL (<200) 08/31/20 05:05 HDL Cholesterol 40 mg/dL (40-60) 08/31/20 05:05 Cholesterol/HDL Ratio 2.90 08/31/20 05:05 Home Medications: Aspirin [Aspirin EC 81 MG] 81 mg PO DAILY 08/31/20 Atorvastatin Calcium 40 mg PO DAILY 08/31/20 Buspirone HCl [Buspar] 5 mg PO BID 08/31/20 Citalopram Hydrobromide [Citalopram HBr] 40 mg PO DAILY 08/31/20 Empagliflozin [Jardiance] 25 mg PO DAILY 08/31/20 Furosemide 20 mg PO DAILY 08/31/20 Insulin NPH Human Isophane [Novolin N] 65 units SQ DAILY 08/31/20 Insulin Regular, Human [Novolin R] 20 unit SQ TID 08/31/20 Levothyroxine [Synthroid] 88 mcg PO DAILY 08/31/20 Liothyronine [Cytomel] 25 mcg PO DAILY 08/31/20 Lisinopril [Zestril] 40 mg PO DAILY 08/31/20 Metoprolol Succinate 50 mg PO DAILY 08/31/20 [place]-3/Dha/Epa/Fish Oil [Fish Oil 1,000 mg Softgel] 1 each PO DAILY 08/31/20 Trazodone [Desyrel] 100 mg PO BEDTIME 08/31/20 Donepezil [Aricept*] 5 mg PO BEDTIME 90 Days #90 tab 09/01/20 New Medications: Donepezil [Aricept*] 5 mg PO BEDTIME 90 Days #90 tab Diet: ADA Activity: Ad nancy Followup: Jose L Dorantes MD [ASSOCIATE-ACTIVE - CAN ADMIT] - 1 Week Uriel Zepeda MD [Primary Care Provider] - 1 Week Time spent managing pt's care (in minutes): 35
--- NOTE | 2020-09-01 21:23 | CON ---
Reason For Consultation: Possible TIA. History Of Present Illness: Ms. Indira Chavis is a 65-year-old right-handed patient, who come s to [facility] with nausea, vomiting, and some reported right-sided weakness. She apparent ly was throwing up and became confused, disoriented, and her daughter called [facility] At [facility], her head CT scan was unremarkable for any acute ischemic or hemorrhagic stroke. The patient did receive some IV fluids and reportedly she said her right-sided weakness reso lved and at the time of my evaluation, she was at her baseline level of functioning with no clear con fusion or weakness in the face, arm, or leg. Past Medical History: Diabetes mellitus. Allergies: NO KNOWN DRUG ALLERGIES. Medications: Aricept 5 mg daily, and she is also managed for hypertension and diabetes by her primar care physician. Review of Systems: No recent fevers, chills, nausea, vomiting, myalgias, or arthralgias. Family History: Noncontributory. Social History: No recent alcohol, tobacco, or IV drug use. Review of Systems: Negative unless mentioned above. Physical Examination: Vital Signs: Blood pressure 155/68, pulse of 79, respiratory rate 16, temperature 97.9, oxygen satur ation 94% on 2 L oxygen via nasal cannula. Weight 239 pounds, height 5 feet 2 inches, BMI over 40. General: Ms. Chavis is sitting in a chair on the beside of her bed. She is in no acute distress. HEENT: She is normocephalic, atraumatic. Sclerae anicteric. Oropharynx is moist and pink. Neck: Supple. Chest: Clear. Heart: Regular. Extremities: No edema or cyanosis. Neurological: She is alert and oriented to situation, place, and person. Follows commands appropria tely. Her cranial nerves 2 through 12 are intact. Motor intact in upper and lower extremities. Sen sation intact in upper and lower extremities. Coordination intact in upper and lower extremities. G ait shows good stance and stride. Reflexes are symmetric. Laboratory Studies: Complete blood count with differential is normal. Coagulation panel unremarkabl e. Chemistries showed glucose range up to 217. Liver function studies are normal. Potassium slight ly low at 3.3. Her TSH is elevated at 5.22 and free T4 is low at 0.70, consistent with hypothyroidis m. Assessment: Ms. Chavis is a 65-year-old patient, who reported episode of confusion and right-sided wea kness. She has hypothyroidism and diabetes mellitus, which are managed by her primary care physician . She has no evidence of stroke by neurological exam and by head CT scan. Plan: The patient will be discharged home. Follow up with Dr. Zepeda as scheduled. May follow up in Dr. Dorantes's clinic 1 month later. Aggressive management of diabetes mellitus. Consider aspirin 81 mg daily. The patient should be managed for hypothyroidism as per primary team. CONNOR/KATIANA Voice ID: [id number] Report ID: [id number]
== END 2020-09-01 15:28 | disposition home or self-care (01) | DRG 392 ==
LOC: ER 10:58 → SUPCPDRO 10:58 → ERHOLD 14:48
PROVIDERS: ADMIT Internal Medicine; ATTEND Internal Medicine
DX: K52.9 Noninfective gastroenteritis and colitis, unspecified (principal); F05 Delirium due to known physiological condition; I10 Essential (primary) hypertension; I25.10 Atherosclerotic heart disease of native coronary artery without angina pectoris; E11.9 Type 2 diabetes mellitus without complications; K59.00 Constipation, unspecified; E78.5 Hyperlipidemia, unspecified; E03.9 Hypothyroidism, unspecified; Z79.4 Long term (current) use of insulin; Z79.899 Other long term (current) drug therapy; Z79.82 Long term (current) use of aspirin; Z79.890 Hormone replacement therapy; Z20.822 Contact with and (suspected) exposure to COVID-19
CPT/HCPCS: 36415; 70450; 71045; 74177; 80048; 80053; 80061; 80076; 81003; 81015; 82607; 82947; 83036; 83090; 83605; 83735; 83880; 83921; 84145; 84439; 84443; 84484; 85025; 85610; 86592; 87040; 93005; 96365; 96372; 96375; 99285; J1630; J2270; J2405; J3475; J7030; Q9967; U0003

== ENCOUNTER 2020-10-21 12:40 | Emergency (ER) | payer OTHER ==
--- OUTSIDE RECORDS SUMMARY | 2020-10-21 12:43 | XMS REPORT | Continuity of Care Document ---
:1955 Author Organization [facility] t Address [address] [place] [address] Care Team Providers Name Role Phone Jose Manuel Hughes OT Attending Clinician Unavailable Kathi PETERSON Attending Clinician Wilman JARAMILLO Attending [...] [facility] Immunizations Ordered Filled Immunization Date Status Comments Sourc e Immunization Name Name FLUZONE HIGH DOSE FLUZONE HIGH DOSE 2019-07-[address] [facility] OVER [facility] 00:00:00 [facility] Procedures This patient has no known procedures. Encounters Start End Encounter Admission Attending Care Care Encounter Source Date/Time Date/Time Type Type Clinicians Facility Department ID 2020-09-18 2020-09-18 Ancillary IZABELA Hughes [id number] 10:09:55 11:20:34 Visit Anand Coates [id number] Jose Manuel Stevenson [id number] Simon [id number] [place] [address] Building 2020-09-18 2020-09-18 Outpatient [facility] [id number] [facility] 2020-09-09 2020-09-09 [facility] [id number] 10:25:00 11:28:35 Visit Anand Coates [id number] Jose Manuel Stevenson [id number] Professio [id number] [address] 2020-09-04 2020-09-04 [facility] [id number] 11:03:12 12:12:29 Visit Anand Coates [id number] Jose Manuel Stevenson [id number] Professio [id number] [address] 2020-08-27 2020-08-27 [facility] [id number] 13:07:15 23:59:00 Encounter Jose SPECIALTY [id number] CARE [id number] CENTER AT [phone] SHEYLAZoe Dobbins [facility] 2020-08-27 2020-08-27 [facility] [id number] 12:42:33 13:42:16 Visit Abena SPECIALTY [id number] CARE [id number] CENTER AT [id number] ANASTASIA Galdamez [facility] 2020-08-04 2020-08-04 Outpatient [facility] [id number] [facility] 2020-07-21 2020-07-21 Outpatient [facility] [id number] [facility] 2020-06-27 2020-06-27 Outpatient [facility] [id number] [facility] 2020-06-02 2020-06-02 Outpatient [facility] [id number] [facility] 2020-04-22 2020-04-22 [facility] [id number] 16:07:00 16:07:00 t [place] [facility] - [address] [facility] Out[facility] Clinics 2020-03-10 2020-03-10 [facility] [id number] 14:12:00 14:12:00 t [facility] s - Road [facility] Medicine Outpati ent Clinics 2020-02-18 2020-02-18 [facility] [id number] 16:18:00 16:18:00 t [facility] [address] [facility] Out[facility] Clinics 2020-02-06 2020-02-06 [facility] [id number] 13:37:00 13:37:00 t [facility] - [address] [facility] Outpat[facility] ent Clinics 2020-02-04 2020-02-04 [facility] [id number] 01[facility]42:00 01:42:00 t [facility] Out[facility] Clinics 2020-01-31 2020-01-31 [facility] [id number] 14:20:00 14:20:00 t [facility] [address] [facility] Out[facility] Clinics 2020-01-30 2020-01-30 [facility] [id number] 14:10:00 14:10:00 t [facility] [address] [facility] Outpat[facility] ent Clinics 2019-12-03 2019-12-03 [facility] [id number] 16:36:00 16:36:00 t [facility] [address] [facility] Out[facility] Clinics 2019-11-18 2019-11-18 [facility] [id number] 13:03:00 13:03:00 t [facility] [address] [facility] Out[facility] Clinics 2019-11-12 2019-11-12 [facility] [id number] 13:39:00 13:39:00 t [facility] Outpat[facility] Clinics 2019-10-31 2019-10-31 [facility] [id number] 13:30:00 13:30:00 t [facility] Medicine Outpati ent Clinics 2019-09-03 2019-09-03 [facility] [id number] 16:31:00 16:31:00 t [facility] Medicine Outpati ent Clinics 2019-07-31 2019-07-31 [facility] [id number] 16:41:00 16:41:00 t [facility] Medicine Outpati ent Clinics 2019-07-28 2019-07-28 [facility] [id number] 02:30:00 02:30:00 t [facility] Medicine Outpati ent Clinics 2019-07-27 2019-07-27 [facility] [id number] 16:20:00 16:20:00 t [facility] Medicine Outpati ent Clinics 2019-07-04 2019-07-04 [facility] [id number] 08:55:00 08:55:00 t [facility] Medicine Outpati ent Clinics 2019-06-11 2019-06-11 [facility] [id number] 09:00:00 09:00:00 t [facility] Medicine Outpati ent Clinics 2019-06-07 2019-06-07 [facility] [id number] 11:00:00 11:00:00 t [facility] Medicine Outpati ent Clinics 2019-06-05 2019-06-05 [facility] [id number] 08:30:00 08:30:00 t [facility] Medicine Outpati ent Clinics 2019-05-10 2019-05-10 [facility] [id number] 08:30:00 08:30:00 t [facility] Medicine Outpati ent Clinics 2019-05-02 2019-05-02 [facility] [id number] 11:27:00 11:27:00 t [facility] Medicine Outpati ent Clinics 2019-04-17 2019-04-17 [facility] [id number] 16:14:00 16:14:00 t [facility] Medicine Outpati ent Clinics 2019-03-26 2019-03-26 [facility] [id number] 09:22:00 09:22:00 t [facility] Medicine Outpati ent Clinics 2019-03-09 2019-03-09 [facility] [id number] 09:45:00 09:45:00 t [facility] Medicine Outpati ent Clinics 2019-03-01 2019-03-01 [facility] [id number] 12:06:00 12:06:00 t [facility] Medicine Outpati ent Clinics 2019-02-20 2019-02-20 [facility] [id number] 14:01:00 14:01:00 t [facility] Medicine Outpati ent Clinics 2019-02-08 2019-02-08 [facility] [id number] 13:15:00 13:15:00 t [facility] Medicine Outpati ent Clinics 2019-02-06 2019-02-06 [facility] [id number] 13:59:00 13:59:00 t [facility] Medicine Outpati ent Clinics 2018-12-27 2018-12-27 [facility] [id number] 13:30:00 13:30:00 [facility] Medicine Outpati ent Clinics Results This patient has no known results.
[2020-10-21 13:49] LABS: Absolute Lymphocytes (CBC) 2.1 K/uL (0.7-4.9); Basophils % 0.2 % (0-1.3); Hematocrit 40.7 % (36.0-45.0); Lymphocytes % 21.2 % (15.3-44.8); MPV 9.5 fL (7.6-11.3); RBC Red Blood Cell Count 4.43 M/uL (3.86-4.86)
[2020-10-21 13:52] LABS: Protime INR 1.05
[2020-10-21 14:06] LABS: ALT/SGPT 13 U/L (12-78); AST/SGOT 11 U/L (15-37); Albumin 3.8 g/dL (3.4-5.0); Alkaline Phosphatase 61 U/L (45-117); BUN Blood Urea Nitrogen 15 mg/dL (7-18); Bicarbonate 24 mmol/L (21-32); Bilirubin Direct 0.2 mg/dL (0-0.2); Bilirubin Total 0.6 mg/dL (0.2-1.0); Glucose Level 175 mg/dL (74-106); Magnesium 1.6 mg/dL (1.8-2.4); NT PRO-BNP 813 pg/mL (<125); Potassium 3.3 mmol/L (3.5-5.1); Protein, Total 7.8 g/dL (6.4-8.2); Sodium Level 143 mmol/L (136-145); Troponin (Emerg Dept Use Only) < 0.02 ng/mL (0.0-0.045)
[2020-10-21] MEDS ORDERED: ONDANSETRON 4 MG/2 ML VIAL ONE (14:06)
[2020-10-21] MEDS ORDERED: LEVALBUTEROL 1.25 MG/3 ML NEB ONE (14:06)
[2020-10-21] MEDS ORDERED: ACETAMINOPHEN 325 MG TABLET ONE (14:51)
--- NOTE | 2020-10-21 15:01 | RAD REPORT ---
EXAM DESCRIPTION: RAD - Chest Single View - 10/21/2020 2:23 pm CLINICAL HISTORY: SOB COMPARISON: Portable chest August 30 TECHNIQUE: AP portable chest image was obtained 10/21/2020 2:23 pm . FINDINGS: Lung volumes are very low. Under penetrated technique and body habitus further limit the e xamination. No peripheral mass or consolidation. Exam limitation could mask mild interstitial edema or infiltrate . Heart and vasculature are normal. No measurable pleural effusion and no pneumothorax. No acute bony abnormality seen. No acute aortic findings suspected. IMPRESSION: Limited examination without acute cardiopulmonary finding. Minimal interstitial edema or infiltrate could be masked.
[2020-10-21 15:23] LABS: SARS-COV-2 RT PCR NEGATIVE (NEGATIVE)
[2020-10-21] MEDS ORDERED: MORPHINE 2 MG/ML SYR ONE ×2 (15:49→16:50)
--- NOTE | 2020-10-21 16:12 | RAD REPORT ---
EXAM DESCRIPTION: CT - Chest For Pe Angio - 10/21/2020 3:46 pm CLINICAL HISTORY: shortness of breath COMPARISON: Chest Single View dated 10/21/2020 TECHNIQUE: Dynamically enhanced 3 mm thick images of the chest were obtained during administration o f approximately 150mL Isovue 370 IV contrast. Coronal and oblique MIP reconstruction images were gene rated and reviewed. Exam utilizes a protocol to evaluate the pulmonary arterial tree. All CT scans are performed using dose optimization technique as appropriate and may include automated exposure control or mA/KV adjustment according to patient size. FINDINGS: No central or lobar pulmonary emboli present. Segmental branch pulmonary emboli are also n ot suspected. Subsegmental branch assessment is limited due to the amount of respiratory motion that is present. Probability of significant pulmonary embolic disease is felt to be very low. The aorta as imaged shows no acute or suspicious finding. No pericardial thickening or effusion. No focal mass or consolidation. Interstitial edema or infiltrate cannot be excluded due to the amount of motion. No pleural effusion or pleural thickening. No mediastinal or hilar suspicious masses. No chest wall masses or abnormal axillary lymphadenopathy. IMPRESSION: No pulmonary emboli are identified. The far peripheral branch assessment is limited due to the amount of respiratory motion. No mass or consolidation. Interstitial edema and infiltrate cannot be excluded also due to the amount of respiratory motion present.
[2020-10-21] MEDS ORDERED: POTASSIUM 25 MEQ EFFERV TAB ONE (16:57)
[2020-10-21 16:59] LABS: Urine Blood NEGATIVE (NEG); Urine Glucose 2+ (NEG); Urine Protein NEGATIVE (NEG)
--- NOTE | 2020-10-21 17:00 | RAD REPORT ---
EXAM DESCRIPTION: CT - Stone Protocol - 10/21/2020 4:41 pm CLINICAL HISTORY: lower abdominal pain, constipation COMPARISON: CT study August 30 TECHNIQUE: Axial 5 mm thick images were obtained without oral or IV contrast. The [id number] span s the entirety of the system including uppermost abdomen and lung bases. All CT scans are performed using dose optimization technique as appropriate and may include automated exposure control or mA/KV adjustment according to patient size. FINDINGS: No hydronephrosis is present and no obstructing ureteral calculi. Contrast is present with in nondilated collecting system. Contrast was administered for the earlier CT chest study. Renal pare nchyma is homogeneous. Delayed image acquisition after contrast does not permit for accurate assessme nt of pyelonephritis. No abnormal perinephric stranding. Adrenal nodularity is present without a mona nant adrenal mass. No urinary bladder suspicious finding. Uterus and ovaries show no suspicious findi ngs. Calcified uterine vasculature noted. Imaged portions of the liver, spleen and pancreas show no suspicious findings on non-contrast imaging . No gallbladder or biliary tree abnormality identified. Several small accessory splenic nodules are present. No suspicious bowel findings. Appendix is normal. Diverticulosis is minimal. No hernia, mass or bulky lymphadenopathy noted. No free air, free fluid or inflammatory stranding. No abdominal wall mass or hematoma. Left lower quadrant small inguinal hernia changes are present with no acute component. Disc and bone degenerative changes are present. No acute bone process seen. Dense arterial tree calc ifications are present. IMPRESSION: CT abdomen and pelvis imaging shows no acute or emergent finding. Isodense masses and pyelonephritis are not excluded on stone protocol technique.Assessment is limited utilizing a delayed postcontrast acquisition protocol. Patient does have a very small hernia in the lower left quadrant inguinal region. There is no bowel i nvolvement and no congested or edematous fat. This is probably not the source of patient's pain.
--- NOTE | 2020-10-21 18:17 | RAD REPORT ---
EXAM DESCRIPTION: US - Extremity Venous Uni Ltd - 10/21/2020 5:58 pm CLINICAL HISTORY: PAIN COMPARISON: April 2019 TECHNIQUE: Real-time sonographic evaluation of the left lower extremity deep venous system was perfo rmed. FINDINGS: Normal compressibility, flow augmentation, phasic flow and spontaneous flow are identified in the left lower extremity common femoral, superficial femoral, popliteal and posterior tibial vein s. No intraluminal filling defects seen. IMPRESSION: No DVT in the left lower extremity.
--- NOTE | 2020-10-21 18:42 | ER ---
Nurse's Notes [facility] Name: Indira Chavis Age: 65 yrs Sex: Female : 1955 Arrival Date: 10/21/2020 Time: 12:43 Bed 19 Private MD: Diagnosis: Sciatica;Lower abdominal pain, unspecified;Dyspnea, unspecified Presentation: 10/21 12:58 Chief complaint: Patient states: can't breathe good and my hip and leg and knee on left iw side hurts all the time, I'm hot one minute and the next I'm cold, symptoms started a week ago. Coronavirus screen: difficulty breathing, fatigue. Ebola Screen: Patient negative for fever greater than or equal to 101.5 degrees Fahrenheit, and additional compatible Ebola Virus Disease symptoms Patient denies exposure to infectious person. Patient denies travel to an Ebola-affected area in the 21 days before illness onset. No symptoms or risks identified at this time. Initial Sepsis Screen: Does the patient meet any 2 criteria? Does the patient have a suspected source of infection? No. Patient's initial sepsis screen is negative. Risk Assessment: Do you want to hurt yourself or someone else? Patient reports no desire to harm self or others. Onset of symptoms was October 16, 2020. 12:58 Method Of Arrival: Wheelchair iw 12:58 Acuity: KERMIT 3 iw Historical: - Allergies: 13:01 No Known Allergies; iw - PMHx: 13:01 BLINDNESS; CAD; CHF; Diabetes - IDDM; High Cholesterol; Hypertension; Hypothyroidism; iw - PSHx: 13:01 left wrist; CABG; Tubal ligation; iw - Immunization history:: Adult Immunizations Pneumococcal vaccine is up to date, Flu vaccine is up to date. - Social history:: Smoking status: Patient/guardian denies using tobacco, but has a distant history of tobacco abuse. Screenin:15 Abuse screen: Denies threats or abuse. Denies injuries from another. Nutritional ca1 screening: No deficits noted. Tuberculosis screening: No symptoms or risk factors identified. Fall Risk Secondary diagnosis (15 points) Blindness. IV access (20 points). Total Chapin Fall Scale indicates Low Risk Score (25-44 pts). Fall prevention measures have been instituted. Side Rails Up X 2 As available Patient and Family Educated on Fall Prevention Program and strategies. Assessment: 13:15 General: Appears in no apparent distress. comfortable, Behavior is calm, cooperative, ca1 appropriate for age. Pain: Complains of pain in R hip Pain currently is 7 out of 10 on a pain scale. Neuro: Level of Consciousness is awake, alert, obeys commands, Oriented to person, place, time, situation. Cardiovascular: Heart tones S1 S2 present Capillary refill < 3 seconds Patient's skin is warm and dry. Rhythm is sinus rhythm. Respiratory: Reports shortness of breath since a week ago Airway is patent Respiratory effort is even, unlabored, Respiratory pattern is regular, symmetrical, Breath sounds are clear bilaterally. GI: Abdomen is round non-distended, Bowel sounds present X 4 quads. Abd is soft and non tender X 4 quads. : No signs and/or symptoms were reported regarding the genitourinary system. EENT: Reports pt blind on both eyes. Derm: Skin is intact, is healthy with good turgor, Skin is pink, warm \T\ dry. Musculoskeletal: Circulation, motion, and sensation intact. Capillary refill < 3 seconds. 14:02 Reassessment: Patient appears in no apparent distress at this time. No changes from ca1 previously documented assessment. Patient is alert, oriented x 3, equal unlabored respirations, skin warm/dry/pink. 15:15 Reassessment: Patient appears in no apparent distress at this time. No changes from ca1 previously documented assessment. Patient is alert, oriented x 3, equal unlabored respirations, skin warm/dry/pink. 16:20 Reassessment: Patient appears in no apparent distress at this time. No changes from ca1 previously documented assessment. Patient is alert, oriented x 3, equal unlabored respirations, skin warm/dry/pink. 16:30 Reassessment: Patient appears in no apparent distress at this time. Patient and/or ca1 family updated on plan of care and expected duration. Pain level reassessed. Patient is alert, oriented x 3, equal unlabored respirations, skin warm/dry/pink. 17:30 Reassessment: Patient appears in no apparent distress at this time. Patient is alert, ca1 oriented x 3, equal unlabored respirations, skin warm/dry/pink. 18:14 Reassessment: [place] [phone]. ca1 18:30 Reassessment: Patient appears in no apparent distress at this time. Patient is alert, ca1 oriented x 3, equal unlabored respirations, skin warm/dry/pink. Vital Signs: 12:58 BP 147 / 63; Pulse 62; Resp 16; Temp 97.9; Pulse Ox 100% on R/A; Weight 87.54 kg; iw Height 5 ft. 2 in. (157.48 cm); Pain 9/10; 14:02 BP 176 / 71; Pulse 65; Resp 16; Pulse Ox 100% on Nebulizer Mask; ca1 15:15 BP 156 / 61; Pulse 84; Resp 21 S; Pulse Ox 100% ; ca1 16:30 BP 152 / 65; Pulse 75; Resp 16 S; Pulse Ox 100% on R/A; ca1 17:30 BP 141 / 61; Pulse 75; Resp 16 S; Pulse Ox 98% on R/A; ca1 18:30 BP 130 / 68; Pulse 81; Resp 16 S; Pulse Ox 99% on R/A; ca1 12:58 Body Mass Index 35.30 (87.54 kg, 157.48 cm) ED Course: 12:43 Patient arrived in ED. mr 13:00 Triage completed. iw 13:01 Arm band placed on. iw 13:02 Benny Ruiz PA is PHCP. [facility] 13:02 London Madrid MD is Attending Physician. [facility] 13:04 Nikky Triplett, KELY is Primary Nurse. ca1 13:29 Patient has correct armband on for positive identification. Bed in low position. Call mh5 light in reach. Side rails up X 1. Warm blanket given. secured entrance monitor on. Pulse ox on. NIBP on. 13:29 EKG done, by ED staff, reviewed by Benny WING. [facility] 13:41 Inserted saline lock: 20 gauge in left antecubital area, using aseptic technique. Blood ca1 collected. 13:41 Initial lab(s) drawn, by me, sent to lab. First set of blood cultures drawn by me. ca1 14:22 XRAY Chest (1 view) In Process Unspecified. EDMS 15:46 CT Chest For PE Angio In Process Unspecified. EDMS 16:41 CT Stone Protocol In Process Unspecified. EDMS 17:58 US Extremity Venous Unilateral Ltd In Process Unspecified. EDMS Administered Medications: 13:50 Drug: Xopenex (3) 1.25 mg Route: Inhalation; ca1 13:50 Drug: Zofran (Ondansetron) 4 mg Route: IVP; Site: left antecubital; ca1 14:30 Follow up: Response: No adverse reaction; Nausea is decreased ca1 14:35 Drug: Tylenol 650 mg Route: PO; ca1 15:00 Follow up: Response: No adverse reaction ca1 15:35 Drug: morphine 2 mg {Note: rass -0.} Route: IVP; Site: left antecubital; ca1 16:34 Drug: morphine 2 mg {Note: rass 0.} Route: IVP; Site: left antecubital; ca1 17:30 Follow up: Response: No adverse reaction; Pain is decreased; RASS: Alert and Calm (0) ca1 17:00 Drug: K-Lyte Effervescent Tablet 50 mEq Route: PO; ca1 19:00 Follow up: Response: No adverse reaction ca1 19:22 Not Given (Other Intervention Used; no c/o pain at this time): morphine 2 mg IVP once; ca1 RASS on ADMIN: Combtv4, Very Agttd3, Agttd2, Rstlss1, AlertClm0, Drwsy-1, Lt Sdtn-2, Mod Sdtn-3, Dp Sdtn-4, UnArsble-5 Outcome: 18:42 Discharge ordered by MD. huang 19:39 Patient left the ED. ll2 Signatures: Dispatcher [employer] EDMS Benny Ruiz PA PA jmm Rivera, Mary mr Williams, Irene, RN RN iw Martinez, Maria [facility] Nikky Triplett RN RN [facility] Stefany Bond RN RN 2
--- NOTE | 2020-10-21 18:43 | EDPHYS ---
Physician Documentation [facility] Name: Indira Chavis Age: 65 yrs Sex: Female : 1955 Arrival Date: 10/21/2020 Time: 12:43 Bed 19 Private MD: ED Physician London Madrid HPI: 10/21 13:08 This 65 yrs old Female presents to ER via Wheelchair with complaints of jmm Nausea, Breathing Difficulty. 13:08 The patient has shortness of breath at rest. Onset: The symptoms/episode began/occurred jmm gradually, 1 week(s) ago. Duration: The symptoms are continuous. The patient's shortness of breath is aggravated by nothing, is alleviated by nothing. The patient presents to the emergency department with nausea, abdominal pain, none. Possible causes: unknown. This is a 65 year old female with a history of DM, HLP, HTN that presents to the ED with complaints of CAD, CHF, CAD that presents to the ED with complaints of SOB, intermittent cough, chills, body aches beginning approx 1 week ago. . Historical: - Allergies: 13:01 No Known Allergies; iw - PMHx: 13:01 BLINDNESS; CAD; CHF; Diabetes - IDDM; High Cholesterol; Hypertension; Hypothyroidism; iw - PSHx: 13:01 left wrist; CABG; Tubal ligation; iw - Immunization history:: Adult Immunizations Pneumococcal vaccine is up to date, Flu vaccine is up to date. - Social history:: Smoking status: Patient/guardian denies using tobacco, but has a distant history of tobacco abuse. ROS: 13:08 Constitutional: Positive for body aches, chills, fever. jmm 13:08 Respiratory: Positive for cough, shortness of breath. 13:08 Abdomen/GI: Positive for nausea. 13:08 All other systems are negative. Exam: 13:08 Constitutional: This is a well developed, well nourished patient who is awake, alert, jmm and in no acute distress. Head/Face: atraumatic. Eyes: EOMI, no conjunctival erythema appreciated ENT: Moist Mucus Membranes Neck: Trachea midline, Supple Chest/axilla: Normal chest wall appearance and motion. Cardiovascular: Regular rate and rhythm. No edema appreciated Respiratory: Normal respirations, no respiratory distress appreciated Abdomen/GI: Non distended, soft Back: Normal ROM Skin: General appearance color normal 13:08 Musculoskeletal/extremity: ROM: intact in all extremities. 13:08 Skin: Appearance: Color: pale. 13:08 Neuro: Orientation: is normal, Mentation: is normal, Memory: is normal. 13:08 Psych: Behavior/mood is pleasant, cooperative, anxious. Vital Signs: 12:58 BP 147 / 63; Pulse 62; Resp 16; Temp 97.9; Pulse Ox 100% on R/A; Weight 87.54 kg; iw Height 5 ft. 2 in. (157.48 cm); Pain 9/10; 14:02 BP 176 / 71; Pulse 65; Resp 16; Pulse Ox 100% on Nebulizer Mask; ca1 15:15 BP 156 / 61; Pulse 84; Resp 21 S; Pulse Ox 100% ; ca1 16:30 BP 152 / 65; Pulse 75; Resp 16 S; Pulse Ox 100% on R/A; ca1 17:30 BP 141 / 61; Pulse 75; Resp 16 S; Pulse Ox 98% on R/A; ca1 18:30 BP 130 / 68; Pulse 81; Resp 16 S; Pulse Ox 99% on R/A; ca1 12:58 Body Mass Index 35.30 (87.54 kg, 157.48 cm) iw MDM: 13:08 Patient medically screened. reina 18:37 Data reviewed: vital signs, nurses notes. Counseling: I had a detailed discussion with reina the patient and/or guardian regarding: the historical points, exam findings, and any diagnostic results supporting the discharge/admit diagnosis, lab results, radiology results, the need for outpatient follow up, to return to the emergency department if symptoms worsen or persist or if there are any questions or concerns that arise at home. ED course: The patient stated she also had generalized abdominal pain along with 10 days of constipation. Patient has had similar pain before with radiation to the left leg. Imaging studies negative for an acute process. Patient is advised to follow up with her pcp for further evaluation. Patient understood and agrees with the plan of care. . 10/21 13:10 Order name: Basic Metabolic Panel [facility] 10/21 13:10 Order name: CBC with Diff [facility] 10/21 13:10 Order name: LFT's [facility] 10/21 13:10 Order name: Magnesium; Complete Time: 14:26 [facility] 10/21 13:10 Order name: NT PRO-BNP; Complete Time: 14:26 [facility] 10/21 13:10 Order name: PT-INR; Complete Time: 14:06 [facility] 10/21 13:10 Order name: Troponin (emerg Dept Use Only); Complete Time: 14:26 [facility] 10/21 13:10 Order name: Procalcitonin; Complete Time: 15:02 [facility] 10/21 13:10 Order name: Lactate; Complete Time: 14:26 [facility] 10/21 13:10 Order name: Blood Culture Adult (2) [facility] 10/21 13:11 Order name: Basic Metabolic Panel; Complete Time: 14:26 [facility] 10/21 13:11 Order name: CBC with Automated Diff; Complete Time: 13:54 [facility] 10/21 13:10 Order name: XRAY Chest (1 view); Complete Time: 15:02 [facility] 10/21 13:11 Order name: Liver (Hepatic) Function; Complete Time: 14:26 [facility] 10/21 13:28 Order name: Urine Culture [facility] 10/21 14:57 Order name: Urine Dipstick--Ancillary (enter results) 10/21 14:57 Order name: Urine Dipstick-Ancillary; Complete Time: 17:31 [facility] 10/21 15:21 Order name: CT Chest For PE Angio; Complete Time: 16:13 [facility] 10/21 15:23 Order name: COVID-19/FLU A+B; Complete Time: 16:13 [facility] 10/21 16:21 Order name: US Extremity Venous Unilateral Ltd; Complete Time: 18:19 [facility] 10/21 16:21 Order name: CT Stone Protocol; Complete Time: 17:31 [facility] 10/21 17:56 Order name: Lactate Sepsis 2 HR Follow-up; Complete Time: 18:19 [facility] 10/21 13:10 Order name: EKG; Complete Time: 13:12 [facility] 10/21 13:10 Order name: Cardiac monitoring; Complete Time: 13:29 [facility] 10/21 13:10 Order name: EKG - Nurse/Tech; Complete Time: 13:29 [facility] 10/21 13:10 Order name: IV Saline Lock; Complete Time: 13:43 [facility] 10/21 13:10 Order name: Labs collected and sent; Complete Time: 13:58 [facility] 10/21 13:10 Order name: O2 Per Protocol; Complete Time: 13:58 [facility] 10/21 13:10 Order name: O2 Sat Monitoring; Complete Time: 13:58 [facility] 10/21 13:28 Order name: Urine Dipstick-Ancillary (obtain specimen); Complete Time: 15:15 [facility] Administered Medications: 13:50 Drug: Xopenex (3) 1.25 mg Route: Inhalation; ca1 13:50 Drug: Zofran (Ondansetron) 4 mg Route: IVP; Site: left antecubital; ca1 14:30 Follow up: Response: No adverse reaction; Nausea is decreased ca1 14:35 Drug: Tylenol 650 mg Route: PO; ca1 15:00 Follow up: Response: No adverse reaction ca1 15:35 Drug: morphine 2 mg {Note: rass -0.} Route: IVP; Site: left antecubital; ca1 16:34 Drug: morphine 2 mg {Note: rass 0.} Route: IVP; Site: left antecubital; ca1 17:30 Follow up: Response: No adverse reaction; Pain is decreased; RASS: Alert and Calm (0) ca1 17:00 Drug: K-Lyte Effervescent Tablet 50 mEq Route: PO; ca1 19:00 Follow up: Response: No adverse reaction ca1 19:22 Not Given (Other Intervention Used; no c/o pain at this time): morphine 2 mg IVP once; ca1 RASS on ADMIN: Combtv4, Very Agttd3, Agttd2, Rstlss1, AlertClm0, Drwsy-1, Lt Sdtn-2, Mod Sdtn-3, Dp Sdtn-4, UnArsble-5 Disposition: 10/21/20 18:42 Discharged to Home. Impression: Sciatica, Lower abdominal pain, unspecified, Dyspnea, unspecified. - Condition is Stable. - Discharge Instructions: Abdominal Pain, Adult, Constipation, Adult, Sciatica, Shortness of Breath. - Prescriptions for orphenadrine citrate 100 mg Oral Tablet Sustained Release - take 1 tablet by ORAL route 2 times per day As needed; 20 tablet. Miralax 17 gram/dose Oral - take 1 packet by ORAL route once daily dilute powder in 8 ounces of water or juice; 1 Pack. - Medication Reconciliation Form, Thank You Letter, Antibiotic Education, Prescription Opioid Use form. - Follow up: Private Physician; When: 2 - 3 days; Reason: Recheck today's complaints, Continuance of care, Re-evaluation by your physician. Addendum: 10/28/2020 07:04 Co-signature as Attending Physician, London Madrid MD. r n Signatures: Dispatcher [employer] EDMS Benny Ruiz PA PA jmm Williams, Irene, KELY RN iw London Madrid MD MD rn Acob, KELY Sher RN ca1 Stefany Bond RN RN ll2 Corrections: (The following items were deleted from the chart) 10/21 14:35 13:12 CORONAVIRUS+MR.LAB.BRZ ordered. EDSD EDSD 19:39 18:42 10/21/2020 18:42 Discharged to Home. Impression: Sciatica; Lower abdominal pain, ll2 unspecified; Dyspnea, unspecified. Condition is Stable. Forms are Medication Reconciliation Form, Thank You Letter, Antibiotic Education, Prescription Opioid Use. Follow up: Private Physician; When: 2 - 3 days; Reason: Recheck today's complaints, Continuance of care, Re-evaluation by your physician. reina
[2020-10-21 21:45] VITALS: TEMP 97.9
[2020-10-21 21:51] VITALS: BP 130/68; O2SAT 99
--- NOTE | 2020-10-22 22:28 | EKG ---
Test Date: 2020-10-21 Test Time: 13:35:55 Assistant Loan Processor: STEVO MEASUREMENT RESULTS: Intervals: Rate: 65 GA: 132 QRSD: 92 QT: 484 QTc: 503 [place]: P: 62 GA: 132 QRS: -29 T: -50 INTERPRETIVE STATEMENTS: Normal sinus rhythm Incomplete right bundle branch block Minimal voltage criteria for LVH, may be normal variant ST & T wave abnormality, consider anterior ischemia Abnormal ECG Compared to ECG 10/21/2020 13:35:31 Left-axis deviation no longer present ST (T wave) deviation still present Possible ischemia still present Electronically Signed On 10-22-20 22:25:39 PROFESSIONAL SERVICES CONSULTANT by Yomi Cid
--- NOTE | 2020-10-22 22:28 | EKG ---
Test Date: 2020-10-21 Test Time: 13:35:31 Gravity Prospector: STEVO MEASUREMENT RESULTS: Intervals: Rate: 65 NE: 134 QRSD: 92 QT: 482 QTc: 501 [place]: P: 54 NE: 134 QRS: -30 T: -52 INTERPRETIVE STATEMENTS: Normal sinus rhythm Left axis deviation Pulmonary disease pattern Incomplete right bundle branch block Minimal voltage criteria for LVH, may be normal variant ST & T wave abnormality, consider anterior ischemia Abnormal ECG Compared to ECG 08/30/2020 11:09:51 Incomplete right bundle-branch block now present ST (T wave) deviation now present Possible ischemia now present Accelerated junctional rhythm no longer present Myocardial infarct finding no longer present Electronically Signed On 10-22-20 22:25:40 MUSIC ADAPTER by Yomi Cid
== END 2020-10-21 19:39 | disposition home or self-care (01) ==
LOC: ER 12:40
DX: R06.00 Dyspnea, unspecified (principal); M54.32 Sciatica, left side; R10.30 Lower abdominal pain, unspecified; Z20.822 Contact with and (suspected) exposure to COVID-19; I10 Essential (primary) hypertension; Z95.1 Presence of aortocoronary bypass graft
CPT/HCPCS: 93005 ×2; 87040 ×2; 87088; 85025; 87086; 80048; 36415; 83735; 85610; 80076; 83605 ×2; 81003; 84484; 84145; 83880; 0240U; 76377; 71275; 74176; 71045; 93971; 96375; 96374; 99285; Q9967; J2270 ×2; J2405

== ENCOUNTER 2021-08-04 12:54 | Emergency (ER) | payer OTHER ==
--- OUTSIDE RECORDS SUMMARY | 2021-08-04 13:07 | XMS REPORT | Continuity of Care Document ---
:1955 Author Organization [facility] t Address [address] [place] [address] Care Team Providers Name Role Phone Donato Dahl Primary Care Physician KATHI Attending Clinician Unavailable Doctor Unassigned, Name Attending Clinician Unavailable Kathi PETERSON Attending Clinician Clovis BLANTON Attending Clinician Donato GRAFF Attending Clinician Unavailable Jose Manuel Hughes OT Attending Clinician Unavailable Donato Graff MD Attending Clinician UCHE PALMER Attending Clinician Unavailable Rafael SINGLETON Attending Clinician Unavailable Therapy-Walkin Attending Clinician Unavailable Celia Reyes MD Attending Clinician Celia REYES Attending Clinician Unavailable Uche Palmer DO Attending Clinician SUSAN Attending Clinician Unavailable Kala MARI Attending Clinician WILMAN Attending Clinician Unavailable Wilman JARAMILLO Attending Clinician Natividad PETERSON Attending Clinician Quinn MENA, E Attending Clinician Unavailable Jaden PETERSON Attending Clinician Only, Test Attending Clinician Unavailable Alessia PETERSON Attending Clinician NIMA TEAGUE Attending Clinician Unavailable Harry SANTOS S Attending Clinician Bryan MCDONALD Attending Clinician Unavailable KATHI Admitting Clinician Unavailable Kathi PETERSON Admitting Clinician Payers Payer Name Policy Type Policy Number Effective Date Expiration Date Bryan lau [employer] MEDICARE ADV [id number] 2019 00:00:00 MEDICARE PART A [id number] 2020 \T\ B 00:00:00 [employer] PPO I [id number] 2020 00:00:00 Problems Condition Condition Condition Status Onset Resolution Last Treating Co mments Source Name Details Category Date Date Treatment Clinician Date Wound Wound Disease Active 2019-08 [facility] infection infection 2-02 ity of 00:00: [place] 00 [facility] Branch Abscess of Abscess of Disease Active 2019-08 [facility]ivers arm, left arm, left 0-30 ity of 00:00: [place] 00 Medical Branch Furunculos Furunculos Disease Active 2019-08 U nivers is of skin is of skin 0-28 it y of and and 00:00: [place] subcutaneo subcutaneo 00 Me dical us tissue us tissue Bran ch Decreased Decreased Disease Active 2019-08 Uni vers range of range of 0-21 [place] of motion of [place] 00 [facility] [place] Stiffness Stiffness Disease Active 2019-08 Uni vers of finger of finger 0-21 ity of joint of joint of 00:00: [place] left hand left hand 00 Medi ju Branch Decreased Decreased Disease Active 2019-08 Uni vers activities activities 0-21 it y of of daily of daily 00:00: [place] living living 00 Medical (ADL) (ADL) Branch Left wrist Left wrist Disease Active 2019-08 U nivers pain pain 0-21 ity of 00:00: [place] 00 Medical Branch 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 0-21 ity of obesity obesity 00:00: [place] due to due to 00 Medical excess excess Branch calories calories with with serious serious comorbidit comorbidit y and body y and body mass index mass index (BMI) of (BMI) of 40.0 to 40.0 to 44.9 in 44.9 in adult adult Open wound Open wound Disease Active 2019-08 [facility] of left of left 0-21 [place] of hand [place] hand with [place] complic[place] complicati [place]ical on, on, Branch subsequent subsequent encounter encounter 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 00:00: [place] 00 [facility] Branch Immobility Immobility Disease Active 2019-08 U nivers 0-21 ity of 00:00: [place] 00 Medical Branch Gallegos's Gallegos's Disease Active 2019-08 Unive rs fracture fracture 0-21 ity of of left of left 00:00: [place] radius, radius, 00 Medical subsequent subsequent Br anch encounter encounter for closed for closed fracture fracture with with routine routine healing healing No known No known Disease Unive rs active active ity of problems problems [facility] Allergies, Adverse Reactions, Alerts Allergy Allergy Status Severity Reaction(s) Onset Inactive Treating Comm ents Source Name Type Date Date Clinician NO KNOWN Drug Active Univers ALLERGIE Class ity of S [facility] Social History Social Habit Start Date Stop Date Quantity Comments Source Exposure to Not sure [facility] SARS-CoV-2 (event) [facility]ica l [place] Tobacco use and 2020-05-12 2020-05-12 Never used [facility] exposure 00:00:00 00:00:00 [facility] Sex [birth year] [facility] 00:00:00 00:00:00 [facility] Smoking Status Start Date Stop Date Source Never smoker [facility] Unknown if ever smoked [facility] Medications Ordered Filled Start Stop Current Ordering Indication Dosage Frequency Signature Comments Components Source Medication Medication Date Date Medication? Clinician (SIG) Name Name insulin NPH Yes 65U inject 65 U nivers human 1-06 Units ity of isophane 19:27: under the [facility] [place] [facility] (NOVOLIN N 16 skin Medical [place]) daily. Branch insulin Yes 20U Inject 20 Unive rs regular, 1-06 Units as ity of human 19:27: directed 3 [place] (NOVOLIN R 16 (three) Medica l INJECTION) times [place] daily. [place]-3-DHA Yes 1{capsu Take 1 U nivers -EPA-Fish 1- le} capsule by ity of Oil (FISH 19:27: mouth [place] OIL) 1,000 16 daily. Medical mg (120 Branch mg-180 mg) Cap aspirin 81 Yes 81mg Take 81 mg U nivers mg EC -06 by mouth ity of tablet 19:27: daily. [address] Branch insulin NPH Yes 65U inject 65 U nivers human 1-06 Units ity of isophane 19:27: [place] ([place]IN N 16 skin Medical [place]) daily. Branch insulin Yes 20U Inject 20 Unive rs regular, 1-06 Units as ity of human 19:27: directed 3 [place] (NOVOLIN R 16 (three) Medica l INJECTION) times Branch daily. [place]-3-DHA Yes 1{capsu Take 1 U nivers -EPA-Fish 1-06 le} capsule by ity of Oil (FISH 19:27: mouth [place] OIL) 1,000 16 daily. Medical mg (120 Branch mg-180 mg) Cap aspirin 81 Yes 81mg Take 81 mg U nivers mg EC 1-06 by mouth ity of tablet 19:27: daily. [address] Branch insulin NPH Yes 65U inject 65 U nivers human 1-06 Units ity of isophane 19:27: [place] ([place]IN N 16 skin Medical [place]) daily. Branch insulin Yes 20U Inject 20 Unive rs regular, 1-06 Units as ity of human 19:27: directed 3 [place] (NOVOLIN R 16 (three) Medica l INJECTION) times Branch daily. [place]-3-DHA Yes 1{capsu Take 1 U nivers -EPA-Fish 1-06 le} capsule by ity of Oil (FISH 19:27: mouth [place] OIL) 1,000 16 daily. Medical mg (120 Branch mg-180 mg) Cap aspirin 81 0 Yes 81mg Take 81 mg U nivers mg EC 1-06 by mouth ity of tablet 19:27: daily. [address] Branch insulin NPH Yes 65U inject 65 U nivers human 1-06 Units ity of isophane 19:27: [place] the [place] ([place]IN N 16 skin Medical [place]) daily. Branch insulin Yes 20U Inject 20 Unive rs regular, 1-06 Units as ity of human 19:27: directed 3 [place] (NOVOLIN R 16 (three) Medica l INJECTION) times Branch daily. [place]-3-DHA Yes 1{capsu Take 1 U nivers -EPA-Fish 1-06 le} capsule by ity of Oil (FISH 19:27: mouth [place] OIL) 1,000 16 daily. Medical mg (120 Branch mg-180 mg) Cap aspirin 81 2020-0 Yes 81mg Take 81 mg U nivers mg EC 1-06 by mouth ity of tablet 19:27: daily. [place] [address] Medical Branch insulin NPH Yes 65U inject 65 U nivers human 1-06 Units ity of isophane 19:27: [place] the [place] ([place]OLIN N 16 skin Medical [place]) daily. Branch insulin 0 Yes 20U Inject 20 Unive rs regular, 1-06 Units as ity of human 19:27: directed 3 [place] (NOVOLIN R 16 (three) Medica l INJECTION) times Branch daily. [place]-3-DHA Yes 1{capsu Take 1 U nivers -EPA-Fish 1-06 le} capsule by ity of Oil (FISH 19:27: mouth [place] OIL) 1,000 16 daily. Medical mg (120 Branch mg-180 mg) Cap aspirin 81 2020-0 Yes 81mg Take 81 mg U nivers mg EC 1-06 by mouth ity of tablet 19:27: daily. [place] [address] Medical Branch insulin NPH Yes 65U inject 65 U nivers human 1-06 Units ity of isophane 19:27: [place] the [place] ([place]OLIN N 16 skin Medical [place]) daily. Branch insulin 0 Yes 20U Inject 20 Unive rs regular, 1-06 Units as ity of human 19:27: directed 3 [place] (NOVOLIN R 16 (three) Medica l INJECTION) times Branch daily. [place]-3-DHA Yes 1{capsu Take 1 U nivers -EPA-Fish 1-06 le} capsule by ity of Oil (FISH 19:27: mouth [place] OIL) 1,000 16 daily. Medical mg (120 Branch mg-180 mg) Cap aspirin 81 2020-0 Yes 81mg Take 81 mg U nivers mg EC 1-06 by mouth ity of tablet 19:27: daily. [place] [address] Medical Branch insulin NPH Yes 65U inject 65 U nivers human 1-06 Units ity of isophane 19:27: [place] the [place] ([place]IN N 16 skin Medical [place]) daily. Branch insulin Yes 20U Inject 20 Unive rs regular, 1-06 Units as ity of human 19:27: directed 3 [place] (NOVOLIN R 16 (three) Medica l INJECTION) times Branch daily. [place]-3-DHA Yes 1{capsu Take 1 U nivers -EPA-Fish 1-06 le} capsule by ity of Oil (FISH 19:27: mouth [place] OIL) 1,000 16 daily. Medical mg (120 Branch mg-180 mg) Cap aspirin 81 2020-0 Yes 81mg Take 81 mg U nivers mg EC 1-06 by mouth ity of tablet 19:27: daily. [place] [address] Medical Branch insulin NPH Yes 65U inject 65 U nivers human 1-06 Units ity of isophane 19:27: [place] the [place] ([place]IN N 16 skin Medical [place]) daily. Branch insulin Yes 20U Inject 20 Unive rs regular, 1-06 Units as ity of human 19:27: directed 3 [place] (NOVOLIN R 16 (three) Medica l INJECTION) times [place] daily. [place]-3-DHA Yes 1{capsu Take 1 U nivers -EPA-Fish 1-06 le} capsule by ity of Oil (FISH 19:27: mouth [place] OIL) 1,000 16 daily. Medical mg (120 Branch mg-180 mg) Cap aspirin 81 2020-0 Yes 81mg Take 81 mg U nivers mg EC 1-06 by mouth ity of tablet 19:27: daily. [place] [address] Medical Branch insulin NPH Yes 65U inject 65 U nivers human 1-06 Units ity of isophane 19:27: [place] the [place] ([place] N 16 skin Medical [place]) daily. Branch insulin Yes 20U Inject 20 Unive rs regular, 1-06 Units as ity of human 19:27: directed 3 [place] (NOVOLIN R 16 (three) Medica l INJECTION) times Branch daily. [place]-3-DHA Yes 1{capsu Take 1 U nivers -EPA-Fish 1-06 le} capsule by ity of Oil (FISH 19:27: mouth [place] OIL) 1,000 16 daily. Medical mg (120 Branch mg-180 mg) Cap aspirin 81 2020-0 Yes 81mg Take 81 mg U nivers mg EC 1-06 by mouth ity of tablet 19:27: daily. [place] [address] Medical Branch insulin NPH Yes 65U inject 65 U nivers human 1-06 Units ity of isophane 19:27: [place] the [place] ([place]OLIN N 16 skin Medical [place]) daily. Branch insulin 0 Yes 20U Inject 20 Unive rs regular, 1-06 Units as ity of human 19:27: directed 3 [place] (NOVOLIN R 16 (three) Medica l INJECTION) times Branch daily. [place]-3-DHA Yes 1{capsu Take 1 U nivers -EPA-Fish 1-06 le} capsule by ity of Oil (FISH 19:27: mouth [place] OIL) 1,000 16 daily. Medical mg (120 Branch mg-180 mg) Cap aspirin 81 2020-0 Yes 81mg Take 81 mg U nivers mg EC 1-06 by mouth ity of tablet 19:27: daily. [place] [address] Medical Branch insulin NPH Yes 65U inject 65 U nivers human 1-06 Units ity of isophane 19:27: [place] the [place] ([place] N 16 skin Medical [place]) daily. Branch insulin Yes 20U Inject 20 Unive rs regular, 1-06 Units as ity of human 19:27: directed 3 [place] (NOVOLIN R 16 (three) Medica l INJECTION) times [place] daily. [place]-3-DHA Yes 1{capsu Take 1 U nivers -EPA-Fish 1-06 le} capsule by ity of Oil (FISH 19:27: mouth [place] OIL) 1,000 16 daily. Medical mg (120 Branch mg-180 mg) Cap aspirin 81 0 Yes 81mg Take 81 mg U nivers mg EC 1-06 by mouth ity of tablet 19:27: daily. [place] [address] Medical Branch insulin NPH 0 Yes 65U inject 65 U nivers human 1-06 Units ity of isophane 19:27: under the [place] ([place]IN N 16 skin Medical [place]) daily. Branch insulin 0 Yes 20U Inject 20 Unive rs regular, 1-06 Units as ity of human 19:27: directed 3 [place] (NOVOLIN R 16 (three) Medica l INJECTION) times Branch daily. [place]-3-DHA Yes 1{capsu Take 1 U nivers -EPA-Fish 1-06 le} capsule by ity of Oil (FISH 19:27: mouth [place] OIL) 1,000 16 daily. Medical mg (120 Branch mg-180 mg) Cap aspirin 81 2020-0 Yes 81mg Take 81 mg U nivers mg EC 1-06 by mouth ity of tablet 19:27: daily. [place] [address] Medical Branch insulin NPH Yes 65U inject 65 U nivers human 1-06 Units ity of isophane 19:27: under the [place] ([place]IN N 16 skin Medical [place]) daily. Branch insulin Yes 20U Inject 20 Unive rs regular, 1-06 Units as ity of human 19:27: directed 3 [place] (NOVOLIN R 16 (three) Medica l INJECTION) times Branch daily. [place]-3-DHA Yes 1{capsu Take 1 U nivers -EPA-Fish 1-06 le} capsule by ity of Oil (FISH 19:27: mouth [place] OIL) 1,000 16 daily. Medical mg (120 Branch mg-180 mg) Cap aspirin 81 2020-0 Yes 81mg Take 81 mg U nivers mg EC 1-06 by mouth ity of tablet 19:27: daily. [place] [address] Medical Branch insulin NPH Yes 65U inject 65 U nivers human 1-06 Units ity of isophane 19:27: under the [place] ([place]IN N 16 skin Medical [place]) daily. Branch insulin Yes 20U Inject 20 Unive rs regular, 1-06 Units as ity of human 19:27: directed 3 [place] (NOVOLIN R 16 (three) Medica l INJECTION) times Branch daily. [place]-3-DHA Yes 1{capsu Take 1 U nivers -EPA-Fish 1-06 le} capsule by ity of Oil (FISH 19:27: mouth [place] OIL) 1,000 16 daily. Medical mg (120 Branch mg-180 mg) Cap aspirin 81 2020-0 Yes 81mg Take 81 mg U nivers mg EC 1-06 by mouth ity of tablet 19:27: daily. [place] [address] Medical Branch insulin NPH Yes 65U inject 65 U nivers human 1-06 Units ity of isophane 19:27: [place] the [place] ([place]IN N 16 skin Medical [place]) daily. Branch insulin 0 Yes 20U Inject 20 Unive rs regular, 1-06 Units as ity of human 19:27: directed 3 [place] (NOVOLIN R 16 (three) Medica l INJECTION) times Branch daily. [place]-3-DHA Yes 1{capsu Take 1 U nivers -EPA-Fish 1-06 le} capsule by ity of Oil (FISH 19:27: mouth [place] OIL) 1,000 16 daily. Medical mg (120 Branch mg-180 mg) Cap aspirin 81 2020-0 Yes 81mg Take 81 mg U nivers mg EC 1-06 by mouth ity of tablet 19:27: daily. [address] Branch insulin NPH Yes 65U inject 65 U nivers human 1-06 Units ity of isophane 19:27: under the [place] ([place]OLIN N 16 skin Medical [place]) daily. Branch insulin Yes 20U Inject 20 Unive rs regular, 1-06 Units as ity of human 19:27: directed 3 [place] (NOVOLIN R 16 (three) Medica l INJECTION) times Branch daily. [place]-3-DHA Yes 1{capsu Take 1 U nivers -EPA-Fish 1-06 le} capsule by ity of Oil (FISH 19:27: mouth [place] OIL) 1,000 16 daily. Medical mg (120 Branch mg-180 mg) Cap aspirin 81 2020-0 Yes 81mg Take 81 mg U nivers mg EC 1-06 by mouth ity of tablet 19:27: daily. [address] Branch insulin NPH Yes 65U inject 65 U nivers human 1-06 Units ity of isophane 19:27: under the [place] ([place]OLIN N 16 skin Medical [place]) daily. Branch insulin Yes 20U Inject 20 Unive rs regular, 1-06 Units as ity of human 19:27: directed 3 [place] (NOVOLIN R 16 (three) Medica l INJECTION) times Branch daily. [place]-3-DHA Yes 1{capsu Take 1 U nivers -EPA-Fish 1-06 le} capsule by ity of Oil (FISH 19:27: mouth [place] OIL) 1,000 16 daily. Medical mg (120 Branch mg-180 mg) Cap aspirin 81 2020-0 Yes 81mg Take 81 mg U nivers mg EC 1-06 by mouth ity of tablet 19:27: daily. [place] [address] Medical Branch insulin NPH Yes 65U inject 65 U nivers human 1-06 Units ity of isophane 19:27: under the [place] ([place]OLIN N 16 skin Medical [place]) daily. Branch insulin 0 Yes 20U Inject 20 Unive rs regular, 1-06 Units as ity of human 19:27: directed 3 [place] (NOVOLIN R 16 (three) Medica l INJECTION) times Branch daily. [place]-3-DHA Yes 1{capsu Take 1 U nivers -EPA-Fish 1-06 le} capsule by ity of Oil (FISH 19:27: mouth [place] OIL) 1,000 16 daily. Medical mg (120 Branch mg-180 mg) Cap aspirin 81 0 Yes 81mg Take 81 mg U nivers mg EC 1-06 by mouth ity of tablet 19:27: daily. [place] [address] Medical Branch insulin NPH Yes 65U inject 65 U nivers human 1-06 Units ity of isophane 19:27: under the [place] ([place]IN N 16 skin Medical [place]) daily. Branch insulin Yes 20U Inject 20 Unive rs regular, 1-06 Units as ity of human 19:27: directed 3 [place] (NOVOLIN R 16 (three) Medica l INJECTION) times Branch daily. [place]-3-DHA Yes 1{capsu Take 1 U nivers -EPA-Fish 1-06 le} capsule by ity of Oil (FISH 19:27: mouth [place] OIL) 1,000 16 daily. Medical mg (120 Branch mg-180 mg) Cap aspirin 81 0 Yes 81mg Take 81 mg U nivers mg EC 1-06 by mouth ity of tablet 19:27: daily. [place] [address] Medical Branch insulin NPH Yes 65U inject 65 U nivers human 1-06 Units ity of isophane 19:27: under the [place] ([place]OLIN N 16 skin Medical [place]) daily. Branch insulin 0 Yes 20U Inject 20 Unive rs regular, 1-06 Units as ity of human 19:27: directed 3 [place] (NOVOLIN R 16 (three) Medica l INJECTION) times Branch daily. [place]-3-DHA Yes 1{capsu Take 1 U nivers -EPA-Fish 1-06 le} capsule by ity of Oil (FISH 19:27: mouth [place] OIL) 1,000 16 daily. Medical mg (120 Branch mg-180 mg) Cap aspirin 81 2020-0 Yes 81mg Take 81 mg U nivers mg EC 1-06 by mouth ity of tablet 19:27: daily. [place] [address] Medical Branch insulin NPH Yes 65U inject 65 U nivers human 1-06 Units ity of isophane 19:27: under the [place] ([place]OLIN N 16 skin Medical [place]) daily. Branch insulin 0 Yes 20U Inject 20 Unive rs regular, 1-06 Units as ity of human 19:27: directed 3 [place] (NOVOLIN R 16 (three) Medica l INJECTION) times Branch daily. [place]-3-DHA Yes 1{capsu Take 1 U nivers -EPA-Fish 1-06 le} capsule by ity of Oil (FISH 19:27: mouth [place] OIL) 1,000 16 daily. Medical mg (120 Branch mg-180 mg) Cap aspirin 81 2020-0 Yes 81mg Take 81 mg U nivers mg EC 1-06 by mouth ity of tablet 19:27: daily. [place] [address] Medical Branch insulin NPH Yes 65U inject 65 U nivers human 1-06 Units ity of isophane 19:27: under the [place] ([place]OLIN N 16 skin Medical [place]) daily. Branch insulin 2020-0 Yes 20U Inject 20 Unive rs regular, 1-06 Units as ity of human 19:27: directed 3 [place] (NOVOLIN R 16 (three) Medica l INJECTION) times Branch daily. [place]-3-DHA Yes 1{capsu Take 1 U nivers -EPA-Fish 1-06 le} capsule by ity of Oil (FISH 19:27: mouth [place] OIL) 1,000 16 daily. Medical mg (120 Branch mg-180 mg) Cap aspirin 81 2020-0 Yes 81mg Take 81 mg U nivers mg EC 1-06 by mouth ity of tablet 19:27: daily. [address] Branch insulin NPH Yes 65U inject 65 U nivers human 1-06 Units ity of isophane 19:27: under the [place] ([place]IN N 16 skin Medical [place]) daily. Branch insulin 0 Yes 20U Inject 20 Unive rs regular, 1-06 Units as ity of human 19:27: directed 3 [place] (NOVOLIN R 16 (three) Medica l INJECTION) times Branch daily. [place]-3-DHA Yes 1{capsu Take 1 U nivers -EPA-Fish 1-06 le} capsule by ity of Oil (FISH 19:27: mouth [place] OIL) 1,000 16 daily. Medical mg (120 Branch mg-180 mg) Cap aspirin 81 2020-0 Yes 81mg Take 81 mg U nivers mg EC 1-06 by mouth ity of tablet 19:27: daily. [address] Branch insulin NPH Yes 65U inject 65 U nivers human 1-06 Units ity of isophane 19:27: under the [place] ([place]IN N 16 skin Medical [place]) daily. Branch insulin Yes 20U Inject 20 Unive rs regular, 1-06 Units as ity of human 19:27: directed 3 [place] (NOVOLIN R 16 (three) Medica l INJECTION) times [place] daily. [place]-3-DHA Yes 1{capsu Take 1 U nivers -EPA-Fish 1-06 le} capsule by ity of Oil (FISH 19:27: mouth [place] OIL) 1,000 16 daily. Medical mg (120 Branch mg-180 mg) Cap aspirin 81 0 Yes 81mg Take 81 mg U nivers mg EC 1-06 by mouth ity of tablet 19:27: daily. [place] [address] Medical Branch insulin NPH Yes 65U inject 65 U nivers human 1-06 Units ity of isophane 19:27: under the [place] ([place]OVOLIN N 16 skin Medical [place]) daily. Branch insulin Yes 20U Inject 20 Unive rs regular, 1-06 Units as ity of human 19:27: directed 3 [place] (NOVOLIN R 16 (three) Medica l INJECTION) times Branch daily. [place]-3-DHA Yes 1{capsu Take 1 U nivers -EPA-Fish 1-06 le} capsule by ity of Oil (FISH 19:27: mouth [place] OIL) 1,000 16 daily. Medical mg (120 Branch mg-180 mg) Cap aspirin 81 2020-0 Yes 81mg Take 81 mg U nivers mg EC 1-06 by mouth ity of tablet 19:27: daily. [place] [address] Medical Branch insulin NPH Yes 65U inject 65 U nivers human 1-06 Units ity of isophane 19:27: [place] the [place] ([place]OLIN N 16 skin Medical [place]) daily. Branch insulin 0 Yes 20U Inject 20 Unive rs regular, 1-06 Units as ity of human 19:27: directed 3 [place] (NOVOLIN R 16 (three) Medica l INJECTION) times [place] daily. [place]-3-DHA Yes 1{capsu Take 1 U nivers -EPA-Fish 1-06 le} capsule by ity of Oil (FISH 19:27: mouth [place] OIL) 1,000 16 daily. Medical mg (120 Branch mg-180 mg) Cap aspirin 81 2020-0 Yes 81mg Take 81 mg U nivers mg EC 1-06 by mouth ity of tablet 19:27: daily. [place] [address] Medical Branch insulin NPH Yes 65U inject 65 U nivers human 1-06 Units ity of isophane 19:27: under the [place] ([place]OLIN N 16 skin Medical [place]) daily. Branch insulin Yes 20U Inject 20 Unive rs regular, 1-06 Units as ity of human 19:27: directed 3 [place] (NOVOLIN R 16 (three) Medica l INJECTION) times [place] daily. [place]-3-DHA Yes 1{capsu Take 1 U nivers -EPA-Fish 1-06 le} capsule by ity of Oil (FISH 19:27: mouth [place] OIL) 1,000 16 daily. Medical mg (120 Branch mg-180 mg) Cap aspirin 81 2020-0 Yes 81mg Take 81 mg U nivers mg EC 1-06 by mouth ity of tablet 19:27: daily. [place] [address] Medical Branch insulin NPH Yes 65U inject 65 U nivers human 1-06 Units ity of isophane 19:27: [place] the [place] ([place]OLIN N 16 skin Medical [place]) daily. Branch insulin 0 Yes 20U Inject 20 Unive rs regular, 1-06 Units as ity of human 19:27: directed 3 [place] (NOVOLIN R 16 (three) Medica l INJECTION) times Branch daily. [place]-3-DHA Yes 1{capsu Take 1 U nivers -EPA-Fish 1-06 le} capsule by ity of Oil (FISH 19:27: mouth [place] OIL) 1,000 16 daily. Medical mg (120 Branch mg-180 mg) Cap aspirin 81 202-0 Yes 81mg Take 81 mg U nivers mg EC 1-06 by mouth ity of tablet 19:27: daily. [place] [address] Medical Branch insulin NPH Yes 65U inject 65 U nivers human 1-06 Units ity of isophane 19:27: [place] the [place] (NOVOLIN N 16 skin Medical [place]) daily. Branch insulin Yes 20U Inject 20 Unive rs regular, 1-06 Units as ity of human 19:27: directed 3 [place] (NOVOLIN R 16 (three) Medica l INJECTION) times Branch daily. [place]-3-DHA Yes 1{capsu Take 1 U nivers -EPA-Fish 1-06 le} capsule by ity of Oil (FISH 19:27: mouth [place] OIL) 1,000 16 daily. Medical mg (120 Branch mg-180 mg) Cap aspirin 81 2020-0 Yes 81mg Take 81 mg U nivers mg EC 1-06 by mouth ity of tablet 19:27: daily. [place] [address] Medical Branch insulin NPH Yes 65U inject 65 U nivers human 1-06 Units ity of isophane 19:27: [place] the [place] ([place]IN N 16 skin Medical [place]) daily. Branch insulin Yes 20U Inject 20 Unive rs regular, 1-06 Units as ity of human 19:27: directed 3 [place] (NOVOLIN R 16 (three) Medica l INJECTION) times Branch daily. [place]-3-DHA Yes 1{capsu Take 1 U nivers -EPA-Fish 1-06 le} capsule by ity of Oil (FISH 19:27: mouth [place] OIL) 1,000 16 daily. Medical mg (120 Branch mg-180 mg) Cap aspirin 81 2021-0 Yes 81mg Take 81 mg U nivers mg EC 1-06 by mouth ity of tablet 19:27: daily. [place] [address] Medical Branch insulin NPH Yes 65U inject 65 U nivers human 1-06 Units ity of isophane 19:27: under the [place] ([place]OLIN N 16 skin Medical [place]) daily. Branch insulin 0 Yes 20U Inject 20 Unive rs regular, 1-06 Units as ity of human 19:27: directed 3 [place] (NOVOLIN R 16 (three) Medica l INJECTION) times Branch daily. [place]-3-DHA Yes 1{capsu Take 1 U nivers -EPA-Fish 1-06 le} capsule by ity of Oil (FISH 19:27: mouth [place] OIL) 1,000 16 daily. Medical mg (120 Branch mg-180 mg) Cap aspirin 81 2020-0 Yes 81mg Take 81 mg U nivers mg EC 1-06 by mouth ity of tablet 19:27: daily. [place] [address] Medical Branch insulin NPH Yes 65U inject 65 U nivers human 1-06 Units ity of isophane 19:27: [place] the [place] ([place]OLIN N 16 skin Medical [place]) daily. Branch insulin Yes 20U Inject 20 Unive rs regular, 1-06 Units as ity of human 19:27: directed 3 [place] (NOVOLIN R 16 (three) Medica l INJECTION) times Branch daily. [place]-3-DHA Yes 1{capsu Take 1 U nivers -EPA-Fish 1-06 le} capsule by ity of Oil (FISH 19:27: mouth [place] OIL) 1,000 16 daily. Medical mg (120 Branch mg-180 mg) Cap aspirin 81 2020-0 Yes 81mg Take 81 mg U nivers mg EC 1-06 by mouth ity of tablet 19:27: daily. [place] [address] Medical Branch insulin NPH 0 Yes 65U inject 65 U nivers human 1-06 Units ity of isophane [place] N 16 skin [facility] [place]) daily. Branch insulin 0 Yes 20U Inject 20 Unive rs regular, 1-06 Units as ity of human 19:27: directed 3 [place] (NOVOLIN R 16 (three) Medica l INJECTION) times Branch daily. [place]-3-DHA Yes 1{capsu Take 1 U nivers -EPA-Fish 1-06 le} capsule by ity of Oil (FISH 19:27: mouth [place] OIL) 1,000 16 daily. Medical mg (120 Branch mg-180 mg) Cap aspirin 81 2020-0 Yes 81mg Take 81 mg U nivers mg EC 1-06 by mouth ity of tablet 19:27: daily. [place] [address] Medical Branch insulin NPH 0 Yes 65U inject 65 U nivers human 1-06 Units ity of isophane 19:27: [place] ([place]OLIN N 16 skin Medical [place]) daily. Branch insulin 0 Yes 20U Inject 20 Unive rs regular, 1-06 Units as ity of human 19:27: directed 3 [place] (NOVOLIN R 16 (three) Medica l INJECTION) times Branch daily. [place]-3-DHA Yes 1{capsu Take 1 U nivers -EPA-Fish 1-06 le} capsule by ity of Oil (FISH 19:27: mouth [place] OIL) 1,000 16 daily. Medical mg (120 Branch mg-180 mg) Cap aspirin 81 2020-0 Yes 81mg Take 81 mg U nivers mg EC 1-06 by mouth ity of tablet 19:27: daily. [place] [address] Medical Branch insulin NPH 0 Yes 65U inject 65 U nivers human 1-06 Units ity of isophane 19:27: [place] ([place]OLIN N 16 skin Medical [place]) daily. Branch insulin 0 Yes 20U Inject 20 Unive rs regular, 1-06 Units as ity of human 19:27: directed 3 [place] (NOVOLIN R 16 (three) Medica l INJECTION) times Branch daily. [place]-3-DHA Yes 1{capsu Take 1 U nivers -EPA-Fish 1-06 le} capsule by ity of Oil (FISH 19:27: mouth [place] OIL) 1,000 16 daily. Medical mg (120 Branch mg-180 mg) Cap aspirin 81 202-0 Yes 81mg Take 81 mg U nivers mg EC 1-06 by mouth ity of tablet 19:27: daily. [place] [address] Medical Branch insulin NPH 2021-0 Yes 65U inject 65 U nivers human 1-06 Units ity of isophane 19:27: [place] ([place]OLIN N 16 skin [facility] [place]) daily. Branch insulin Yes 20U Inject 20 Unive rs regular, 1-06 Units as ity of human 19:27: directed 3 [place] (NOVOLIN R 16 (three) Medica l INJECTION) times Branch daily. [place]-3-DHA Yes 1{capsu Take 1 U nivers -EPA-Fish 1-06 le} capsule by ity of Oil (FISH 19:27: mouth [place] OIL) 1,000 16 daily. Medical mg (120 Branch mg-180 mg) Cap aspirin 81 0 Yes 81mg Take 81 mg U nivers mg EC 1-06 by mouth ity of tablet 19:27: daily. [address] Branch insulin NPH Yes 65U inject 65 U nivers human 1-06 Units ity of isophane 13:27: [place] ([facility]OLIN N 16 skin [facility] [place]) daily. Branch insulin Yes 20U Inject 20 Unive rs regular, 1-06 Units as ity of human 13:27: directed 3 [place] (NOVOLIN R 16 (three) Medica l INJECTION) times Branch daily. [place]-3-DHA Yes 1{capsu Take 1 U nivers -EPA-Fish 1-06 le} capsule by ity of Oil (FISH 13:27: mouth [place] OIL) 1,000 16 daily. Medical mg (120 Branch mg-180 mg) Cap aspirin 81 Yes 81mg Take 81 mg U nivers mg EC 1-06 by mouth ity of tablet 13:27: daily. [place] [address] Medical Branch insulin NPH Yes 65U inject 65 U nivers human 1-06 Units ity of isophane 13:27: [place] ([facility]OVOLIN N 16 skin [facility] [place]) daily. Branch insulin Yes 20U Inject 20 Unive rs regular, 1-06 Units as ity of human 13:27: directed 3 [place] (NOVOLIN R 16 (three) Medica l INJECTION) times Branch daily. [place]-3-DHA Yes 1{capsu Take 1 U nivers -EPA-Fish 1-06 le} capsule by ity of Oil (FISH 13:27: mouth [place] OIL) 1,000 16 daily. Medical mg (120 Branch mg-180 mg) Cap aspirin 81 Yes 81mg Take 81 mg U nivers mg EC 1-06 by mouth ity of tablet 13:27: daily. [address] Branch insulin NPH Yes 65U inject 65 U nivers human 1-06 Units ity of isophane 13:27: [place] ([facility]IN N 16 skin [facility] [place]) daily. Branch insulin Yes 20U Inject 20 Unive rs regular, 1-06 Units as ity of human 13:27: directed 3 [place] (NOVOLIN R 16 (three) Medica l INJECTION) times Branch daily. [place]-3-DHA Yes 1{capsu Take 1 U nivers -EPA-Fish 1-06 le} capsule by ity of Oil (FISH 13:27: mouth [place] OIL) 1,000 16 daily. Medical mg (120 Branch mg-180 mg) Cap aspirin 81 Yes 81mg Take 81 mg U nivers mg EC 1-06 by mouth ity of tablet 13:27: daily. [address] doxycycline 2019-08- No [id number] 100mg Take 1 [facility] hyclate 100 1-25 12-10 capsule by i ty of mg capsule 00:00: 05:59 mouth [place] 00 :00 every 12 Medical (twelve) Branch hours for 14 days. doxycycline 2019-08- No [id number] 100mg Take 1 [facility] hyclate 100 1-25 12-10 capsule by i ty of mg capsule 00:00: 05:59 mouth [place] 00 :00 every 12 Medical (twelve) Branch hours for 14 days. doxycycline 2019-08 2020- No [id number] 100mg Take 1 [facility] hyclate 100 1-25 12-10 capsule by i ty of mg capsule 00:00: 05:59 mouth [place] 00 :00 every 12 Medical (twelve) Branch hours for 14 days. doxycycline 2019-08 2020- No [id number] 100mg Take 1 [facility] hyclate 100 1-25 12-10 capsule by i ty of mg capsule 00:00: 05:59 mouth [place] 00 :00 every 12 Medical (twelve) Branch hours for 14 days. amitriptyli 2019-08 2020- No [id number] 10mg Take 1 [facility] ne 10 mg 08-25 [id number] tablet by ity of tablet 00:00: 05:59 mouth [place] 00 :00 every Medical evening Branch for 30 days. amitriptyli 2019-08- No [id number] 10mg Take 1 [facility] ne 10 mg 08-25 [id number] tablet by ity of tablet 00:00: 05:59 mouth [place] 00 :00 every Medical evening Branch for 30 days. amitriptyli 2019-08- No [id number] 10mg Take 1 [facility] ne 10 mg 08-25 [id number] tablet by ity of tablet 00:00: 05:59 mouth [place] 00 :00 every Medical evening Branch for 30 days. amitriptyli 2019-08- No [id number] 10mg Take 1 [facility] ne 10 mg 08-25 [id number] tablet by ity of tablet 00:00: 05:59 mouth [place] 00 :00 every Medical evening Branch for 30 days. amitriptyli 2019-08- No [id number] 10mg Take 1 [facility] ne 10 mg 08-25 [id number] tablet by ity of tablet 00:00: 05:59 mouth [place] 00 :00 every Medical evening Branch for 30 days. amitriptyli 2019-08- No [id number] 10mg Take 1 [facility] ne 10 mg 08-25 [id number] tablet by ity of tablet 00:00: 05:59 mouth [place] 00 :00 every Medical evening Branch for 30 days. amitriptyli 2019-08- No [id number] 10mg Take 1 [facility] ne 10 mg 08-25 [id number] tablet by ity of tablet 00:00: 05:59 mouth [place] 00 :00 every Medical evening Branch for 30 days. amitriptyli 2019-08- No [id number] 10mg Take 1 [facility] ne 10 mg 08-25 [id number] tablet by ity of tablet 00:00: 05:59 mouth [place] 00 :00 every Medical evening Branch for 30 days. amitriptyli 2019-08- No [id number] 10mg Take 1 [facility] ne 10 mg 08-25 [id number] tablet by ity of tablet 00:00: 05:59 mouth [place] 00 :00 every Medical evening Branch for 30 days. insulin NPH 2019-08 Yes 65U inject 65 U nivers human 0-28 Units ity of isophane 18:39: [place] ([facility]OVOLIN N 44 skin [facility] [place]) daily. Branch insulin 2020- Yes 20U Inject 20 Unive rs regular, 0-28 Units as ity of human 18:39: directed 3 [place] (NOVOLIN R 44 (three) Medica l INJECTION) times Branch daily. [place]-3-DHA 2019- Yes 1{capsu Take 1 U nivers -EPA-Fish 0-28 le} capsule by ity of Oil (FISH 18:39: mouth [place] OIL) 1,000 44 daily. Medical mg (120 Branch mg-180 mg) Cap aspirin 81 2020- Yes 81mg Take 81 mg U nivers mg EC 0-28 by mouth ity of tablet 18:39: daily. [address] insulin NPH 2019- Yes 65U inject 65 U nivers human 0-28 Units ity of isophane 18:39: [place] ([facility] N 44 skin [facility] [place]) daily. Branch insulin 2019- Yes 20U Inject 20 Unive rs regular, 0-28 Units as ity of human 18:39: directed 3 [place] (NOVOLIN R 44 (three) Medica l INJECTION) times Branch daily. [place]-3-DHA 2019- Yes 1{capsu Take 1 U nivers -EPA-Fish 0-28 le} capsule by ity of Oil (FISH 18:39: mouth [place] OIL) 1,000 44 daily. Medical mg (120 Branch mg-180 mg) Cap aspirin 81 2020- Yes 81mg Take 81 mg U nivers mg EC 0-28 by mouth ity of tablet 18:39: daily. [address] insulin NPH 2019- Yes 65U inject 65 U nivers human 0-28 Units ity of isophane 18:39: [place] ([place] N 44 skin [facility] [place]) daily. Branch insulin 2020- Yes 20U Inject 20 Unive rs regular, 0-28 Units as ity of human 18:39: directed 3 [place] (NOVOLIN R 44 (three) Medica l INJECTION) times Branch daily. [place]-3-DHA 2019- Yes 1{capsu Take 1 U nivers -EPA-Fish 0-28 le} capsule by ity of Oil (FISH 18:39: mouth [place] OIL) 1,000 44 daily. Medical mg (120 Branch mg-180 mg) Cap aspirin 81 2020- Yes 81mg Take 81 mg U nivers mg EC 0-28 by mouth ity of tablet 18:39: daily. [place] [address] Medical Branch insulin NPH 2019- Yes 65U inject 65 U nivers human 0-28 Units ity of isophane 18:39: [place] ([place] N 44 skin Medical [place]) daily. Branch insulin 2019-08 Yes 20U Inject 20 Unive rs regular, 0-28 Units as ity of human 18:39: directed 3 [place] (NOVOLIN R 44 (three) Medica l INJECTION) times Branch daily. [place]-3-DHA 2019-08 Yes 1{capsu Take 1 U nivers -EPA-Fish 0-28 le} capsule by ity of Oil (FISH 18:39: mouth [place] OIL) 1,000 44 daily. Medical mg (120 Branch mg-180 mg) Cap aspirin 81 2019- Yes 81mg Take 81 mg U nivers mg EC 0-28 by mouth ity of tablet 18:39: daily. [place] [address] Medical Branch insulin NPH 2019-08 Yes 65U inject 65 U nivers human 0-28 Units ity of isophane 18:39: [place] ([place] N 44 skin [facility] [place]) daily. Branch insulin 2019-08 Yes 20U Inject 20 Unive rs regular, 0-28 Units as ity of human 18:39: directed 3 [place] (NOVOLIN R 44 (three) Medica l INJECTION) times Branch daily. [place]-3-DHA 2019- Yes 1{capsu Take 1 U nivers -EPA-Fish 0-28 le} capsule by ity of Oil (FISH 18:39: mouth [place] OIL) 1,000 44 daily. Medical mg (120 Branch mg-180 mg) Cap aspirin 81 2020- Yes 81mg Take 81 mg U nivers mg EC 0-28 by mouth ity of tablet 18:39: daily. [place] [address] Medical Branch insulin NPH 2019- Yes 65U inject 65 U nivers human 0-28 Units ity of isophane 18:39: [place] ([place]IN N 44 skin Medical [place]) daily. Branch insulin 2019- Yes 20U Inject 20 Unive rs regular, 0-28 Units as ity of human 18:39: directed 3 [place] (NOVOLIN R 44 (three) Medica l INJECTION) times Branch daily. [place]-3-DHA 2019- Yes 1{capsu Take 1 U nivers -EPA-Fish 0-28 le} capsule by ity of Oil (FISH 18:39: mouth [place] OIL) 1,000 44 daily. Medical mg (120 Branch mg-180 mg) Cap aspirin 81 2020- Yes 81mg Take 81 mg U nivers mg EC 0-28 by mouth ity of tablet 18:39: daily. [address] Branch insulin NPH 2019-08 Yes 65U inject 65 U nivers human 0-28 Units ity of isophane 18:39: [place] ([facility] N 44 skin [facility] [place]) daily. Branch insulin 2019-08 Yes 20U Inject 20 Unive rs regular, 0-28 Units as ity of human 18:39: directed 3 [place] (NOVOLIN R 44 (three) Medica l INJECTION) times Branch daily. [place]-3-DHA 2019- Yes 1{capsu Take 1 U nivers -EPA-Fish 0-28 le} capsule by ity of Oil (FISH 18:39: mouth [place] OIL) 1,000 44 daily. Medical mg (120 Branch mg-180 mg) Cap aspirin 81 2020- Yes 81mg Take 81 mg U nivers mg EC 0-28 by mouth ity of tablet 18:39: daily. [address] insulin NPH 2019-08 Yes 65U inject 65 U nivers human 0-28 Units ity of isophane 18:39: [place] ([facility] N 44 skin [facility] [place]) daily. Branch insulin 2020- Yes 20U Inject 20 Unive rs regular, 0-28 Units as ity of human 18:39: directed 3 [place] (NOVOLIN R 44 (three) Medica l INJECTION) times Branch daily. [place]-3-DHA 2019- Yes 1{capsu Take 1 U nivers -EPA-Fish 0-28 le} capsule by ity of Oil (FISH 18:39: mouth [place] OIL) 1,000 44 daily. Medical mg (120 Branch mg-180 mg) Cap aspirin 81 2020-1 Yes 81mg Take 81 mg U nivers mg EC 0-28 by mouth ity of tablet 18:39: daily. [address] Branch insulin NPH 2019- Yes 65U inject 65 U nivers human 0-28 Units ity of isophane 18:39: [place] ([facility] N 44 skin [facility] [place]) daily. Branch insulin 2020- Yes 20U Inject 20 Unive rs regular, 0-28 Units as ity of human 18:39: directed 3 [place] (NOVOLIN R 44 (three) Medica l INJECTION) times Branch daily. [place]-3-DHA 2019- Yes 1{capsu Take 1 U nivers -EPA-Fish 0-28 le} capsule by ity of Oil (FISH 18:39: mouth [place] OIL) 1,000 44 daily. Medical mg (120 Branch mg-180 mg) Cap aspirin 81 2020- Yes 81mg Take 81 mg U nivers mg EC 0-28 by mouth ity of tablet 18:39: daily. [place] [address] Medical Branch insulin NPH 2019- Yes 65U inject 65 U nivers human 0-28 Units ity of isophane 18:39: [place] ([facility]OVOLIN N 44 skin Medical [place]) daily. Branch insulin 2020- Yes 20U Inject 20 Unive rs regular, 0-28 Units as ity of human 18:39: directed 3 [place] (NOVOLIN R 44 (three) Medica l INJECTION) times Branch daily. [place]-3-DHA 2019- Yes 1{capsu Take 1 U nivers -EPA-Fish 0-28 le} capsule by ity of Oil (FISH 18:39: mouth [place] OIL) 1,000 44 daily. Medical mg (120 Branch mg-180 mg) Cap aspirin 81 2020- Yes 81mg Take 81 mg U nivers mg EC 0-28 by mouth ity of tablet 18:39: daily. [place] [address] Medical Branch insulin NPH 2020- Yes 65U inject 65 U nivers human 0-28 Units ity of isophane 18:39: [place] ([facility]IN N 44 skin [facility] [place]) daily. Branch insulin 2020- Yes 20U Inject 20 Unive rs regular, 0-28 Units as ity of human 18:39: directed 3 [place] (NOVOLIN R 44 (three) Medica l INJECTION) times Branch daily. [place]-3-DHA 2019- Yes 1{capsu Take 1 U nivers -EPA-Fish 0-28 le} capsule by ity of Oil (FISH 18:39: mouth [place] OIL) 1,000 44 daily. Medical mg (120 Branch mg-180 mg) Cap aspirin 81 2019- Yes 81mg Take 81 mg U nivers mg EC 0-28 by mouth ity of tablet 18:39: daily. [place] [address] Medical Branch insulin NPH 2019- Yes 65U inject 65 U nivers human 0-28 Units ity of isophane 18:39: [place] ([facility]IN N 44 skin [facility] [place]) daily. Branch insulin 2019-08 Yes 20U Inject 20 Unive rs regular, 0-28 Units as ity of human 18:39: directed 3 [place] (NOVOLIN R 44 (three) Medica l INJECTION) times Branch daily. [place]-3-DHA 2019-08 Yes 1{capsu Take 1 U nivers -EPA-Fish 0-28 le} capsule by ity of Oil (FISH 18:39: mouth [place] OIL) ,000 44 daily. Medical mg (120 Branch mg-180 mg) Cap aspirin 81 2019- Yes 81mg Take 81 mg U nivers mg EC 0-28 by mouth ity of tablet 18:39: daily. [place] [address] Medical Branch insulin NPH 2019-08 Yes 65U inject 65 U nivers human 0-28 Units ity of isophane 18:39: [place] ([facility]OLIN N 44 skin Medical [place]) daily. Branch insulin 2019-08 Yes 20U Inject 20 Unive rs regular, 0-28 Units as ity of human 18:39: directed 3 [place] (NOVOLIN R 44 (three) Medica l INJECTION) times Branch daily. [place]-3-DHA 2019- Yes 1{capsu Take 1 U nivers -EPA-Fish 0-28 le} capsule by ity of Oil (FISH 18:39: mouth [place] OIL) 1,000 44 daily. Medical mg (120 Branch mg-180 mg) Cap aspirin 81 2019- Yes 81mg Take 81 mg U nivers mg EC 0-28 by mouth ity of tablet 18:39: daily. [place] [address] Medical Branch insulin NPH 2019- Yes 65U inject 65 U nivers human 0-28 Units ity of isophane 18:39: [place] ([facility]OLIN N 44 skin Medical [place]) daily. Branch insulin 2020 Yes 20U Inject 20 Unive rs regular, 0-28 Units as ity of human 18:39: directed 3 [place] (NOVOLIN R 44 (three) Medica l INJECTION) times Branch daily. [place]-3-DHA 2019-08 Yes 1{capsu Take 1 U nivers -EPA-Fish 0-28 le} capsule by ity of Oil (FISH 18:39: mouth [place] OIL) 1,000 44 daily. Medical mg (120 Branch mg-180 mg) Cap aspirin 81 2019- Yes 81mg Take 81 mg U nivers mg EC 0-28 by mouth ity of tablet 18:39: daily. [address] Branch insulin NPH 2019-08 Yes 65U inject 65 U nivers human 0-28 Units ity of isophane 18:39: [place] ([facility]OLIN N 44 skin Medical [place]) daily. Branch insulin 2019-08 Yes 20U Inject 20 Unive rs regular, 0-28 Units as ity of human 18:39: directed 3 [place] (NOVOLIN R 44 (three) Medica l INJECTION) times Branch daily. [place]-3-DHA 2019-08 Yes 1{capsu Take 1 U nivers -EPA-Fish 0-28 le} capsule by ity of Oil (FISH 18:39: mouth [place] OIL) 1,000 44 daily. Medical mg (120 Branch mg-180 mg) Cap aspirin 81 2019-08 Yes 81mg Take 81 mg U nivers mg EC 0-28 by mouth ity of tablet 18:39: daily. [address] insulin NPH 2019-08 Yes 65U inject 65 U nivers human 0-28 Units ity of isophane 18:39: [place] ([facility]IN N 44 skin [facility] [place]) daily. Branch insulin 2019-08 Yes 20U Inject 20 Unive rs regular, 0-28 Units as ity of human 18:39: directed 3 [place] (NOVOLIN R 44 (three) Medica l INJECTION) times Branch daily. [place]-3-DHA 2019-08 Yes 1{capsu Take 1 U nivers -EPA-Fish 0-28 le} capsule by ity of Oil (FISH 18:39: mouth [place] OIL) 1,000 44 daily. Medical mg (120 Branch mg-180 mg) Cap aspirin 81 2020- Yes 81mg Take 81 mg U nivers mg EC 0-28 by mouth ity of tablet 18:39: daily. [address] doxycycline 2019-08 2020- No [id number] 100mg Take 1 [facility] 100 mg EC 0-19 07- [id number] tablet by it y of tablet 00:00: 05:59 mouth 2 [place] 00 :00 (two) Medical times Branch daily for 14 days. doxycycline 2019-08- No [id number] 100mg Take 1 [facility] 100 mg EC 0-28 - [id number] tablet by it y of tablet 00:00: 05:59 mouth 2 [place] 00 :00 (two) Medical times Branch daily for 14 days. doxycycline 2019-08- No [id number] 100mg Take 1 [facility] 100 mg EC 0-19 07- [id number] tablet by it y of tablet 00:00: 05:59 mouth 2 [place] 00 :00 (two) Medical times Branch daily for 14 days. doxycycline 2019-08- No [id number] 100mg Take 1 [facility] 100 mg EC 0-07-03 [id number] tablet by it y of tablet 00:00: 05:59 mouth 2 [place] 00 :00 (two) Medical times Branch daily for 14 days. doxycycline 2019-08- No [id number] 100mg Take 1 [facility] 100 mg EC 0-07-03 [id number] tablet by it y of tablet 00:00: 05:59 mouth 2 [place] 00 :00 (two) Medical times Branch daily for 14 days. doxycycline 2019-08- No [id number] 100mg Take 1 [facility] 100 mg EC 0-07-03 [id number] tablet by it y of tablet 00:00: 05:59 mouth 2 [place] 00 :00 (two) Medical times Branch daily for 14 days. traMADoL 50 2019-08- No [id number] 50mg Take 1 Uni vers mg tablet 0- 10-29 tablet by ity of 00:00: 04:59 mouth [place] 00 :00 every 8 Medical (eight) Branch hours as needed for Pain (scale 4-6) for up to 7 days. Indication s: acute pain traMADoL 50 2019-08- No [id number] 50mg Take 1 [facility] vers mg tablet 0- 10-29 tablet by ity of 00:00: 04:59 mouth [place] 00 :00 every 8 Medical (eight) Branch hours as needed for Pain (scale 4-6) for up to 7 days. Indication s: acute pain traMADoL 50 2019-08- No [id number] 50mg Take 1 [facility] vers mg tablet 0-13 10-21 tablet by ity of 00:00: 04:59 mouth [place] 00 :00 every 6 Medical (six) Branch hours as needed for Pain (scale 4-6) for up to 7 days. Indication s: acute pain sulfamethox 2019-08 2020- No [id number] 1{tbl} Take 1 [facility] azole-trime 0-12 10-20 [id number] tablet by ity of thoprim 00:00: 04:59 mouth 2 [place] (BACTRIM) 00 :00 (two) Medical 400-80 mg times Branch per tablet daily for 7 days. sulfamethox 2019-08 2020- No [id number] 1{tbl} Take 1 [facility] azole-trime 0-12 10-20 [id number] tablet by ity of thoprim 00:00: 04:59 mouth 2 [place] (BACTRIM) 00 :00 (two) Medical 400-80 mg times Branch per tablet daily for 7 days. sulfamethox 2019-08 2020- No [id number] 1{tbl} Take 1 [facility] azole-trime 0-12 10-20 [id number] tablet by ity of thoprim 00:00: 04:59 mouth 2 [place] (BACTRIM) 00 :00 (two) Medical 400-80 mg times Branch per tablet daily for 7 days. sulfamethox 2019-08 2020- No [id number] 1{tbl} Take 1 [facility] azole-trime 0-12 10-20 [id number] tablet by ity of thoprim 00:00: 04:59 mouth 2 [place] (BACTRIM) 00 :00 (two) Medical 400-80 mg times Branch per tablet daily for 7 days. sulfamethox 2019-08 2020- No [id number] 1{tbl} Take 1 [facility] azole-trime 0-12 10-20 [id number] tablet by ity of thoprim 00:00: 04:59 mouth 2 [place] (BACTRIM) 00 :00 (two) Medical 400-80 mg times Branch per tablet daily for 7 days. insulin NPH 2020-0 Yes 65U inject 65 U nivers human 9-25 Units ity of isophane 01:11: [place] ([facility]IN N 03 skin [facility] [place]) daily. Branch insulin 2020-0 Yes 20U Inject 20 Unive rs regular, 9-25 Units as ity of human 01:11: directed 3 [place] (NOVOLIN R 03 (three) Medica l INJECTION) times Branch daily. [place]-3-DHA 2020-0 Yes 1{capsu Take 1 U nivers -EPA-Fish 9-25 le} capsule by ity of Oil (FISH 01:11: mouth [place] OIL) 1,000 03 daily. Medical mg (120 Branch mg-180 mg) Cap aspirin 81 2020-0 Yes 81mg Take 81 mg U nivers mg EC 9-25 by mouth ity of tablet 01:11: daily. [place] [facility] insulin NPH 2020-0 Yes 65U inject 65 U nivers human 9-25 Units ity of isophane 01:11: [place] ([facility] N 03 skin [facility] [place]) daily. Branch insulin 2020-0 Yes 20U Inject 20 Unive rs regular, 9-25 Units as ity of human 01:11: directed 3 [place] (NOVOLIN R 03 (three) Medica l INJECTION) times Branch daily. [place]-3-DHA 2020-0 Yes 1{capsu Take 1 U nivers -EPA-Fish 9-25 le} capsule by ity of Oil (FISH 01:11: mouth [place] OIL) 1,000 03 daily. Medical mg (120 Branch mg-180 mg) Cap aspirin 81 2020-0 Yes 81mg Take 81 mg U nivers mg EC 9-25 by mouth ity of tablet 01:11: daily. [place] [address] Medical Branch insulin NPH 2020-0 Yes 65U inject 65 U nivers human 9-25 Units ity of isophane 01:11: [place] ([place]OLIN N 03 skin [facility] [place]) daily. Branch insulin 2020-0 Yes 20U Inject 20 Unive rs regular, 9-25 Units as ity of human 01:11: directed 3 [place] (NOVOLIN R 03 (three) Medica l INJECTION) times Branch daily. [place]-3-DHA 2020-0 Yes 1{capsu Take 1 U nivers -EPA-Fish 9-25 le} capsule by ity of Oil (FISH 01:11: mouth [place] OIL) 1,000 03 daily. Medical mg (120 Branch mg-180 mg) Cap aspirin 81 2020-0 Yes 81mg Take 81 mg U nivers mg EC 9-25 by mouth ity of tablet 01:11: daily. [place] [facility] insulin NPH 2020-0 Yes 65U inject 65 U nivers human 9-25 Units ity of isophane 01:11: [place] ([place]IN N 03 skin [facility] [place]) daily. Branch insulin 2020-0 Yes 20U Inject 20 Unive rs regular, 9-25 Units as ity of human 01:11: directed 3 [place] (NOVOLIN R 03 (three) Medica l INJECTION) times Branch daily. [place]-3-DHA 2020-0 Yes 1{capsu Take 1 U nivers -EPA-Fish 9-25 le} capsule by ity of Oil (FISH 01:11: mouth [place] OIL) 1,000 03 daily. Medical mg (120 Branch mg-180 mg) Cap aspirin 81 2020-0 Yes 81mg Take 81 mg U nivers mg EC 9-25 by mouth ity of tablet 01:11: daily. [place] [address] Medical Branch insulin NPH 2020-0 Yes 65U inject 65 U nivers human 9-25 Units ity of isophane 01:11: [place] ([place]IN N 03 skin [facility] [place]) daily. Branch insulin 2020-0 Yes 20U Inject 20 Unive rs regular, 9-25 Units as ity of human 01:11: directed 3 [place] (NOVOLIN R 03 (three) Medica l INJECTION) times Branch daily. [place]-3-DHA 2020-0 Yes 1{capsu Take 1 U nivers -EPA-Fish 9-25 le} capsule by ity of Oil (FISH 01:11: mouth [place] OIL) 1,000 03 daily. Medical mg (120 Branch mg-180 mg) Cap aspirin 81 2020-0 Yes 81mg Take 81 mg U nivers mg EC 9-25 by mouth ity of tablet 01:11: daily. [place] [address] Medical Branch insulin NPH 2020-0 Yes 65U inject 65 U nivers human 9-25 Units ity of isophane 01:11: [place] ([place] N 03 skin [facility] [place]) daily. Branch insulin 2020-0 Yes 20U Inject 20 Unive rs regular, 9-25 Units as ity of human 01:11: directed 3 [place] (NOVOLIN R 03 (three) Medica l INJECTION) times Branch daily. [place]-3-DHA 2020-0 Yes 1{capsu Take 1 U nivers -EPA-Fish 9-25 le} capsule by ity of Oil (FISH 01:11: mouth [place] OIL) 1,000 03 daily. Medical mg (120 Branch mg-180 mg) Cap aspirin 81 2020-0 Yes 81mg Take 81 mg U nivers mg EC 9-25 by mouth ity of tablet 01:11: daily. [place] [facility] insulin NPH 2020-0 Yes 65U inject 65 U nivers human 9-25 Units ity of isophane 01:11: [place] ([place] N 03 skin [facility] [place]) daily. Branch insulin 2020-0 Yes 20U Inject 20 Unive rs regular, 9-25 Units as ity of human 01:11: directed 3 [place] (NOVOLIN R 03 (three) Medica l INJECTION) times Branch daily. [place]-3-DHA 2020-0 Yes 1{capsu Take 1 U nivers -EPA-Fish 9-25 le} capsule by ity of Oil (FISH 01:11: mouth [place] OIL) 1,000 03 daily. Medical mg (120 Branch mg-180 mg) Cap aspirin 81 2020-0 Yes 81mg Take 81 mg U nivers mg EC 9-25 by mouth ity of tablet 01:11: daily. [place] [facility] insulin NPH 2020-0 Yes 65U inject 65 U nivers human 9-25 Units ity of isophane 01:11: [place] ([place]OLIN N 03 skin [facility] [place]) daily. Branch insulin 2020-0 Yes 20U Inject 20 Unive rs regular, 9-25 Units as ity of human 01:11: directed 3 [place] (NOVOLIN R 03 (three) Medica l INJECTION) times Branch daily. [place]-3-DHA 2020-0 Yes 1{capsu Take 1 U nivers -EPA-Fish 9-25 le} capsule by ity of Oil (FISH 01:11: mouth [place] OIL) 1,000 03 daily. Medical mg (120 Branch mg-180 mg) Cap aspirin 81 2020-0 Yes 81mg Take 81 mg U nivers mg EC 9-25 by mouth ity of tablet 01:11: daily. [place] [facility] insulin NPH 2020-0 Yes 65U inject 65 U nivers human 9-25 Units ity of [place]ophane 01:11: [place]NOVOLIN N 03 skin Medical SC) daily. Branch insulin 2020-0 Yes 20U Inject 20 Unive rs regular, 9-25 Units as ity of human 01:11: directed 3 [place] (NOVOLIN R 03 (three) Medica l INJECTION) times [place] daily. [place]-3-DHA 2020-0 Yes 1{capsu Take 1 U nivers -EPA-Fish 05-16 le} capsule by ity of Oil (FISH 01:11: mouth [place] OIL) 1,000 03 daily. Medical mg (120 Branch mg-180 mg) Cap aspirin 81 2020-0 Yes 81mg Take 81 mg U nivers mg EC 25 by mouth ity of tablet 01:11: daily. [place] 03 [facility] lactated 2020-0 Yes 1000mL at 75 Univer s ringers IV 9-24 mL/hr, ity of infusion 23:00: 1,000 [place] 1[place]000 [place] 00 IV Medical Infusion, Branch CONTINUOUS , Starting [place] 05/15/20 at 1800, Until Discontinu ed, Routine, PACU HYDROmorpho 2020-0 Yes .2mg 0.2 mg, Uni vers ne 9-24 Slow IV ity of (DILAUDID) 22:50: Push, [place] injection 40 Q5MIN PRN, Medi ju 0.2 mg 10 doses, Branch Starting [facility] 05/15/20 at 1750, Until Discontinu ed, Routine, Pain (scale 7-10), PACU
Us e approved by (Faculty): PACU USE -ANESTHESI A SERVICE-HY DROMORPHON E INJECTIONS ondansetron 2020-0 Yes 4mg 4 mg, Slow Univers (ZOFRAN 9-24 IV Push, ity of (PF)) 22:50: PRN, 1 [place] injection 4 40 dose, Medical mg Starting Branch [facility] 05/15/20 at 1750, Until Discontinu ed, Routine, Nausea and Vomiting (N/V), PACU FENTanyl PF 2020-0 Yes 25ug 25 mcg, Uni vers (SUBLIMAZE 9-24 Slow IV ity of (PF)) 22:50: Push, [place] injection 39 Q5MIN PRN, Medi ju 25 mcg 4 doses, Branch Starting [facility] 05/15/20 at 1750, Until Discontinu ed, Routine, Pain (scale 4-6), PACU sodium 2020-0 Yes PRN, Univers chloride 9-24 Starting ity of 0.9 % 18:41: [place] irrigation 00 05/15/20 at Med ical solution 1341, Branch Until Discontinu ed, Intra-op bupivacaine 2020-0 Yes PRN, Univer s -epinephrin 05-15 Starting ity of e-pf 18:41: Jessa [place] (SENSORCAIN 00 05/15/20 at Nm dical E 1341, Branch W/EPINEPHRI Until NE) 0.25 Discontinu %-1:200,000 ed, injection Routine, Intra-op HYDROcodone 2020-0 2020- No 4647 1{tbl} Take 1 U nivers -acetaminop 05-15 10-02 tablet by it y of hen 5-325 00:00: 04:59 mouth [place] mg tablet 00 :00 every 6 Medical (six) Branch hours as needed for Pain (scale 4-6) or Pain (scale 7-10) for up to 7 days. Indication s: acute pain [place]-3-DHA 2020-0 Yes 1{capsu Take 1 U nivers -EPA-Fish 9-21 le} capsule by ity of Oil (FISH 20:05: mouth [place] OIL) 1,000 35 daily. Medical mg (120 Branch mg-180 mg) Cap aspirin 81 2020-0 Yes 81mg Take 81 mg U nivers mg EC 9-21 by mouth ity of tablet 20:05: daily. [address] [place]-3-DHA 2020-0 Yes 1{capsu Take 1 U nivers -EPA-Fish 9-21 le} capsule by ity of Oil (FISH 20:05: mouth [place] OIL) 1,000 35 daily. Medical mg (120 Branch mg-180 mg) Cap aspirin 81 2020-0 Yes 81mg Take 81 mg U nivers mg EC 9-21 by mouth ity of tablet 20:05: daily. [address] [place]-3-DHA 2020-0 Yes 1{capsu Take 1 U nivers -EPA-Fish 9-21 le} capsule by ity of Oil (FISH 20:05: mouth [place] OIL) 1,000 35 daily. Medical mg (120 Branch mg-180 mg) Cap aspirin 81 2020-0 Yes 81mg Take 81 mg U nivers mg EC 9-21 by mouth ity of tablet 20:05: daily. [address] insulin NPH 2020-0 Yes 65U inject 65 U nivers human 9-21 Units ity of isophane 20:04: [place]NOVOLIN N 25 skin Medical SC) daily. Branch insulin 2020-0 Yes 20U Inject 20 Unive rs regular, 9-21 Units as ity of human 20:04: directed 3 [place] (NOVOLIN R 25 (three) Medica l INJECTION) times Branch daily. insulin NPH 2020-0 Yes 65U inject 65 U nivers human 9-21 Units ity of isophane 20:04: [place] (NOVOLIN N 25 skin Medical SC) daily. Branch insulin 2020-0 Yes 20U Inject 20 Unive rs regular, 9-21 Units as ity of human 20:04: directed 3 [place] (NOVOLIN R 25 (three) Medica l INJECTION) times Branch daily. insulin NPH 2020-0 Yes 65U inject 65 U nivers human 9-21 Units ity of isophane 20:04: [place] (NOVOLIN N 25 skin Medical SC) daily. Branch insulin 2020-0 Yes 20U Inject 20 Unive rs regular, 9-21 Units as ity of human 20:04: directed 3 [place] (NOVOLIN R 25 (three) Medica l INJECTION) times Branch daily. acetaminoph 2020-0 2020- No 4647 1{tbl} Take 1 U nivers en-codeine 9-14 -22 tablet by ity of 300-30 mg 00:00: 04:59 mouth [place] tablet 00 :00 every 6 Medical (six) Branch hours as needed for Pain (scale 7-10) for up to 7 days. Indication s: acute pain acetaminoph 2020-0 2020- No 4647 1{tbl} Take 1 U nivers en-codeine 9-14 -22 tablet by ity of 300-30 mg 00:00: 04:59 mouth [place] tablet 00 :00 every 6 Medical (six) Branch hours as needed for Pain (scale 7-10) for up to 7 days. Indication s: acute pain acetaminoph 2020-0 2020- No 4647 1{tbl} Take 1 U nivers en-codeine 9-14 09-22 tablet by ity of 300-30 mg 00:00: 04:59 mouth [place] tablet 00 :00 every 6 Medical (six) Branch hours as needed for Pain (scale 7-10) for up to 7 days. Indication s: acute pain acetaminoph 2020-0 2020- No 4647 1{tbl} Take 1 U nivers en-codeine 05-05 tablet by ity of 300-30 mg 00:00: 04:59 mouth [place] tablet 00 :00 every 6 Medical (six) Branch hours as needed for Pain (scale 7-10) for up to 7 days. Indication s: acute pain levothyroxi 2020-0 Yes Pranayer s ne 88 mcg 9-13 ity of tablet 00:00: [place] 00 [facility] Branch levothyroxi 2020-0 Yes Univer s ne 75 mcg 9-13 ity of tablet 00:00: [place] 00 [facility] JARDIANCE 2020-0 Yes Univers 25 mg Tab 9-13 ity of 00:00: [place] 00 [facility] Branch traZODone 2020-0 Yes Univers 100 mg 9-13 ity of tablet 00:00: [place] [facility] metoprolol 2020-0 Yes Univers succinate 9-13 ity of XL 50 mg 24 00:00: [place] hr tablet 00 Medical Branch levothyroxi 2020-0 Yes Rula s ne 88 mcg 9-13 ity of tablet 00:00: [place] [facility] levothyroxi 2020-0 Yes Rula s ne 75 mcg 9-13 ity of tablet 00:00: [place] 00 [facility] JARDIANCE 2020-0 Yes Univers 25 mg Tab 9-13 ity of 00:00: [place] 00 [facility] traZODone 2020-0 Yes Univers 100 mg 9-13 ity of tablet 00:00: [place] [facility] metoprolol 2020-0 Yes Univers succinate 9-13 ity of XL 50 mg 24 00:00: [place] hr tablet 00 Medical Branch levothyroxi 2020-0 Yes Rula s ne 88 mcg 9-13 ity of tablet 00:00: [place] [facility] levothyroxi 2020-0 Yes Univer s ne 75 mcg 9-13 ity of tablet 00:00: [place] 00 [facility] JARDIANCE 2020-0 Yes Univers 25 mg Tab 9-13 ity of 00:00: [place] [facility] traZODone 2020-0 Yes Univers 100 mg 9-13 ity of tablet 00:00: [place] [facility] metoprolol 2020-0 Yes Univers succinate 9-13 ity of XL 50 mg 24 00:00: [place] hr tablet 00 Medical Branch levothyroxi 2020-0 Yes Univer s ne 88 mcg 9-13 ity of tablet 00:00: [place] 00 [facility] levothyroxi 2020-0 Yes Univer s ne 75 mcg 9-13 ity of tablet 00:00: [place] 00 [facility] JARDIANCE 2020-0 Yes Univers 25 mg Tab 9-13 ity of 00:00: [place] 00 [facility] traZODone 2020-0 Yes Univers 100 mg 9-13 ity of tablet 00:00: [place] 00 [facility] metoprolol 2020-0 Yes Univers succinate 9-13 ity of XL 50 mg 24 00:00: [place] hr tablet 00 Medical Branch levothyroxi 2020-0 Yes Univer s ne 88 mcg 9-13 ity of tablet 00:00: [place] 00 [facility] levothyroxi 2020-0 Yes Univer s ne 75 mcg 9-13 ity of tablet 00:00: [place] 00 [facility] JARDIANCE 2020-0 Yes Univers 25 mg Tab 9-13 ity of 00:00: [place] 00 [facility] traZODone 2020-0 Yes Univers 100 mg 9-13 ity of tablet 00:00: [place] 00 [facility] metoprolol 2020-0 Yes Univers succinate 9-13 ity of XL 50 mg 24 00:00: [place] hr tablet 00 Medical Branch levothyroxi 2020-0 Yes Univer s ne 88 mcg 9-13 ity of tablet 00:00: [place] 00 [facility] levothyroxi 2020-0 Yes Univer s ne 75 mcg 9-13 ity of tablet 00:00: [place] 00 [facility] JARDIANCE 2020-0 Yes Univers 25 mg Tab 9-13 ity of 00:00: [place] 00 [facility] traZODone 2020-0 Yes Univers 100 mg 9-13 ity of tablet 00:00: [place] 00 [facility] metoprolol 2020-0 Yes Univers succinate 9-13 ity of XL 50 mg 24 00:00: [place] hr tablet 00 Medical Branch levothyroxi 2020-0 Yes Univer s ne 88 mcg 9-13 ity of tablet 00:00: [place] 00 [facility] levothyroxi 2020-0 Yes Univer s ne 75 mcg 9-13 ity of tablet 00:00: [place] 00 [facility] JARDIANCE 2020-0 Yes Univers 25 mg Tab 9-13 ity of 00:00: [place] 00 [facility] traZODone 2020-0 Yes Univers 100 mg 9-13 ity of tablet 00:00: [place] 00 [facility] Branch metoprolol 2020-0 Yes Univers succinate 9-13 ity of XL 50 mg 24 00:00: [place] hr tablet 00 Medical Branch levothyroxi 2020-0 Yes Univer s ne 88 mcg 9-13 ity of tablet 00:00: [place] 00 [facility] levothyroxi 2020-0 Yes Univer s ne 75 mcg 9-13 ity of tablet 00:00: [place] 00 [facility] JARDIANCE 2020-0 Yes Univers 25 mg Tab 9-13 ity of 00:00: [place] 00 [facility] traZODone 2020-0 Yes Univers 100 mg 9-13 ity of tablet 00:00: [place] 00 [facility] metoprolol 2020-0 Yes Univers succinate 9-13 ity of XL 50 mg 24 00:00: [place] hr tablet 00 Medical Branch levothyroxi 2020-0 Yes Univer s ne 88 mcg 9-13 ity of tablet 00:00: [place] 00 [facility] levothyroxi 2020-0 Yes Univer s ne 75 mcg 9-13 ity of tablet 00:00: [place] 00 [facility] JARDIANCE 2020-0 Yes Univers 25 mg Tab 9-13 ity of 00:00: [place] 00 [facility] traZODone 2020-0 Yes Univers 100 mg 9-13 ity of tablet 00:00: [place] 00 [facility] metoprolol 2020-0 Yes Univers succinate 9-13 ity of XL 50 mg 24 00:00: [place] hr tablet 00 Medical Branch levothyroxi 2020-0 Yes Univer s ne 88 mcg 9-13 ity of tablet 00:00: [place] 00 [facility] levothyroxi 2020-0 Yes Univer s ne 75 mcg 9-13 ity of tablet 00:00: [place] 00 [facility] JARDIANCE 2020-0 Yes Univers 25 mg Tab 9-13 ity of 00:00: [place] 00 [facility] traZODone 2020-0 Yes Univers 100 mg 9-13 ity of tablet 00:00: [place] 00 [facility] metoprolol 2020-0 Yes Univers succinate 9-13 ity of XL 50 mg 24 00:00: [place] hr tablet 00 Medical Branch levothyroxi 2020-0 Yes Univer s ne 88 mcg 9-13 ity of tablet 00:00: [place] 00 [facility] levothyroxi 2020-0 Yes Univer s ne 75 mcg 9-13 ity of tablet 00:00: [place] 00 [facility] JARDIANCE 2020-0 Yes Univers 25 mg Tab 9-13 ity of 00:00: [place] 00 [facility] traZODone 2020-0 Yes Univers 100 mg 9-13 ity of tablet 00:00: [place] 00 [facility] metoprolol 2020-0 Yes Univers succinate 9-13 ity of XL 50 mg 24 00:00: [place] hr tablet 00 Medical Branch levothyroxi 2020-0 Yes Univer s ne 88 mcg 9-13 ity of tablet 00:00: [place] 00 [facility] levothyroxi 2020-0 Yes Univer s ne 75 mcg 9-13 ity of tablet 00:00: [place] 00 [facility] JARDIANCE 2020-0 Yes Univers 25 mg Tab 9-13 ity of 00:00: [place] 00 [facility] traZODone 2020-0 Yes Univers 100 mg 9-13 ity of tablet 00:00: [place] 00 [facility] metoprolol 2020-0 Yes Univers succinate 9-13 ity of XL 50 mg 24 00:00: [place] hr tablet 00 Medical Branch levothyroxi 2020-0 Yes Univer s ne 88 mcg 9-13 ity of tablet 00:00: [place] 00 [facility] levothyroxi 2020-0 Yes Univer s ne 75 mcg 9-13 ity of tablet 00:00: [place] 00 [facility] JARDIANCE 2020-0 Yes Univers 25 mg Tab 9-13 ity of 00:00: [place] 00 [facility] traZODone 2020-0 Yes Univers 100 mg 9-13 ity of tablet 00:00: [place] 00 [facility] metoprolol 2020-0 Yes Univers succinate 9-13 ity of XL 50 mg 24 00:00: [place] hr tablet 00 Medical Branch levothyroxi 2020-0 Yes Univer s ne 88 mcg 9-13 ity of tablet 00:00: [place] 00 [facility] levothyroxi 2020-0 Yes Univer s ne 75 mcg 9-13 ity of tablet 00:00: [place] 00 [facility] JARDIANCE 2020-0 Yes Univers 25 mg Tab 9-13 ity of 00:00: [place] 00 [facility] traZODone 2020-0 Yes Univers 100 mg 9-13 ity of tablet 00:00: [place] 00 [facility] metoprolol 2020-0 Yes Univers succinate 9-13 ity of XL 50 mg 24 00:00: [place] hr tablet 00 Medical Branch levothyroxi 2020-0 Yes Univer s ne 88 mcg 9-13 ity of tablet 00:00: [place] 00 [facility] levothyroxi 2020-0 Yes Univer s ne 75 mcg 9-13 ity of tablet 00:00: [place] 00 [facility] JARDIANCE 2020-0 Yes Univers 25 mg Tab 9-13 ity of 00:00: [place] 00 [facility] traZODone 2020-0 Yes Univers 100 mg 9-13 ity of tablet 00:00: [place] 00 [facility] metoprolol 2020-0 Yes Univers succinate 9-13 ity of XL 50 mg 24 00:00: [place] hr tablet 00 Medical Branch levothyroxi 2020-0 Yes Univer s ne 88 mcg 9-13 ity of tablet 00:00: [place] 00 [facility] levothyroxi 2020-0 Yes Univer s ne 75 mcg 9-13 ity of tablet 00:00: [place] 00 [facility] JARDIANCE 2020-0 Yes Univers 25 mg Tab 9-13 ity of 00:00: [place] 00 [facility] traZODone 2020-0 Yes Univers 100 mg 9-13 ity of tablet 00:00: [place] 00 [facility] metoprolol 2020-0 Yes Univers succinate 9-13 ity of XL 50 mg 24 00:00: [place] hr tablet 00 Medical Branch levothyroxi 2020-0 Yes Univer s ne 88 mcg 9-13 ity of tablet 00:00: [place] 00 [facility] levothyroxi 2020-0 Yes Univer s ne 75 mcg 9-13 ity of tablet 00:00: [place] 00 [facility] JARDIANCE 2020-0 Yes Univers 25 mg Tab 9-13 ity of 00:00: [place] 00 [facility] traZODone 2020-0 Yes Univers 100 mg 9-13 ity of tablet 00:00: [place] 00 [facility] metoprolol 2020-0 Yes Univers succinate 9-13 ity of XL 50 mg 24 00:00: [place] hr tablet 00 Medical Branch levothyroxi 2020-0 Yes Univer s ne 88 mcg 9-13 ity of tablet 00:00: [place] 00 [facility] levothyroxi 2020-0 Yes Univer s ne 75 mcg 9-13 ity of tablet 00:00: [place] 00 [facility] JARDIANCE 2020-0 Yes Univers 25 mg Tab 9-13 ity of 00:00: [place] 00 [facility] traZODone 2020-0 Yes Univers 100 mg 9-13 ity of tablet 00:00: [place] 00 [facility] metoprolol 2020-0 Yes Univers succinate 9-13 ity of XL 50 mg 24 00:00: [place] hr tablet 00 Medical Branch levothyroxi 2020-0 Yes Univer s ne 88 mcg 9-13 ity of tablet 00:00: [place] 00 [facility] levothyroxi 2020-0 Yes Univer s ne 75 mcg 9-13 ity of tablet 00:00: [place] 00 [facility] JARDIANCE 2020-0 Yes Univers 25 mg Tab 9-13 ity of 00:00: [place] 00 [facility] traZODone 2020-0 Yes Univers 100 mg 9-13 ity of tablet 00:00: [place] 00 [facility] metoprolol 2020-0 Yes Univers succinate 9-13 ity of XL 50 mg 24 00:00: [place] hr tablet 00 Medical Branch levothyroxi 2020-0 Yes Univer s ne 88 mcg 9-13 ity of tablet 00:00: [place] 00 [facility] levothyroxi 2020-0 Yes Univer s ne 75 mcg 9-13 ity of tablet 00:00: [place] 00 [facility] JARDIANCE 2020-0 Yes Univers 25 mg Tab 9-13 ity of 00:00: [place] 00 [facility] traZODone 2020-0 Yes Univers 100 mg 9-13 ity of tablet 00:00: [place] 00 [facility] metoprolol 2020-0 Yes Univers succinate 9-13 ity of XL 50 mg 24 00:00: [place] hr tablet 00 Medical Branch levothyroxi 2020-0 Yes Univer s ne 88 mcg 9-13 ity of tablet 00:00: [place] 00 [facility] levothyroxi 2020-0 Yes Univer s ne 75 mcg 9-13 ity of tablet 00:00: [place] 00 [facility] JARDIANCE 2020-0 Yes Univers 25 mg Tab 9-13 ity of 00:00: [place] 00 [facility] traZODone 2020-0 Yes Univers 100 mg 9-13 ity of tablet 00:00: [place] 00 [facility] metoprolol 2020-0 Yes Univers succinate 9-13 ity of XL 50 mg 24 00:00: [place] hr tablet 00 Medical Branch levothyroxi 2020-0 Yes Univer s ne 88 mcg 9-13 ity of tablet 00:00: [place] 00 [facility] levothyroxi 2020-0 Yes Univer s ne 75 mcg 9-13 ity of tablet 00:00: [place] 00 [facility] JARDIANCE 2020-0 Yes Univers 25 mg Tab 9-13 ity of 00:00: [place] 00 [facility] traZODone 2020-0 Yes Univers 100 mg 9-13 ity of tablet 00:00: [place] 00 [facility] metoprolol 2020-0 Yes Univers succinate 9-13 ity of XL 50 mg 24 00:00: [place] hr tablet 00 Medical Branch levothyroxi 2020-0 Yes Univer s ne 88 mcg 9-13 ity of tablet 00:00: [place] 00 [facility] levothyroxi 2020-0 Yes Univer s ne 75 mcg 9-13 ity of tablet 00:00: [place] 00 [facility] JARDIANCE 2020-0 Yes Univers 25 mg Tab 9-13 ity of 00:00: [place] 00 [facility] traZODone 2020-0 Yes Univers 100 mg 9-13 ity of tablet 00:00: [place] [address] Medical Branch metoprolol 2020-0 Yes Univers succinate 9-13 ity of XL 50 mg 24 00:00: [place] hr tablet 00 Medical Branch levothyroxi 2020-0 Yes Univer s ne 88 mcg 9-13 ity of tablet 00:00: [place] 00 [facility] levothyroxi 2020-0 Yes Univer s ne 75 mcg 9-13 ity of tablet 00:00: [place] 00 [facility] JARDIANCE 2020-0 Yes Univers 25 mg Tab 9-13 ity of 00:00: [place] 00 [facility] traZODone 2020-0 Yes Univers 100 mg 9-13 ity of tablet 00:00: [place] 00 [facility] metoprolol 2020-0 Yes Univers succinate 9-13 ity of XL 50 mg 24 00:00: [place] hr tablet 00 Medical Branch levothyroxi 2020-0 Yes Univer s ne 88 mcg 9-13 ity of tablet 00:00: [place] 00 [facility] levothyroxi 2020-0 Yes Univer s ne 75 mcg 9-13 ity of tablet 00:00: [place] 00 [facility] JARDIANCE 2020-0 Yes Univers 25 mg Tab 9-13 ity of 00:00: [place] 00 [facility] traZODone 2020-0 Yes Univers 100 mg 9-13 ity of tablet 00:00: [place] 00 [facility] metoprolol 2020-0 Yes Univers succinate 9-13 ity of XL 50 mg 24 00:00: [place] hr tablet 00 Medical Branch levothyroxi 2020-0 Yes Univer s ne 88 mcg 9-13 ity of tablet 00:00: [place] 00 [facility] levothyroxi 2020-0 Yes Univer s ne 75 mcg 9-13 ity of tablet 00:00: [place] 00 [facility] JARDIANCE 2020-0 Yes Univers 25 mg Tab 9-13 ity of 00:00: [place] 00 [facility] traZODone 2020-0 Yes Univers 100 mg 9-13 ity of tablet 00:00: [place] 00 [facility] metoprolol 2020-0 Yes Univers succinate 9-13 ity of XL 50 mg 24 00:00: [place] hr tablet 00 Medical Branch levothyroxi 2020-0 Yes Univer s ne 88 mcg 9-13 ity of tablet 00:00: [place] 00 [facility] levothyroxi 2020-0 Yes Univer s ne 75 mcg 9-13 ity of tablet 00:00: [place] [address] Medical Branch JARDIANCE 2020-0 Yes Univers 25 mg Tab 9-13 ity of 00:00: [place] 00 [facility] traZODone 2020-0 Yes Univers 100 mg 9-13 ity of tablet 00:00: [place] 00 [facility] metoprolol 2020-0 Yes Univers succinate 9-13 ity of XL 50 mg 24 00:00: [place] hr tablet 00 Medical Branch levothyroxi 2020-0 Yes Univer s ne 88 mcg 9-13 ity of tablet 00:00: [place] 00 [facility] levothyroxi 2020-0 Yes Univer s ne 75 mcg 9-13 ity of tablet 00:00: [place] 00 [facility] JARDIANCE 2020-0 Yes Univers 25 mg Tab 9-13 ity of 00:00: [place] 00 [facility] traZODone 2020-0 Yes Univers 100 mg 9-13 ity of tablet 00:00: [place] 00 [facility] metoprolol 2020-0 Yes Univers succinate 9-13 ity of XL 50 mg 24 00:00: [place] hr tablet 00 Medical Branch levothyroxi 2020-0 Yes Univer s ne 88 mcg 9-13 ity of tablet 00:00: [place] 00 [facility] levothyroxi 2020-0 Yes Univer s ne 75 mcg 9-13 ity of tablet 00:00: [place] 00 [facility] JARDIANCE 2020-0 Yes Univers 25 mg Tab 9-13 ity of 00:00: [place] 00 [facility] traZODone 2020-0 Yes Univers 100 mg 9-13 ity of tablet 00:00: [place] 00 [facility] metoprolol 2020-0 Yes Univers succinate 9-13 ity of XL 50 mg 24 00:00: [place] hr tablet 00 Medical Branch levothyroxi 2020-0 Yes Univer s ne 88 mcg 9-13 ity of tablet 00:00: [place] 00 [facility] levothyroxi 2020-0 Yes Univer s ne 75 mcg 9-13 ity of tablet 00:00: [place] 00 [facility] JARDIANCE 2020-0 Yes Univers 25 mg Tab 9-13 ity of 00:00: [place] 00 [facility] traZODone 2020-0 Yes Univers 100 mg 9-13 ity of tablet 00:00: [place] 00 [facility] metoprolol 2020-0 Yes Univers succinate 9-13 ity of XL 50 mg 24 00:00: [place] hr tablet 00 Medical Branch JARDIANCE 2020-0 Yes Univers 25 mg Tab 9-13 ity of 00:00: [place] 00 [facility] levothyroxi 2020-0 Yes Univer s ne 88 mcg 9-13 ity of tablet 00:00: [place] 00 [facility] levothyroxi 2020-0 Yes Univer s ne 75 mcg 9-13 ity of tablet 00:00: [place] [address] Medical Branch JARDIANCE 2020-0 Yes Univers 25 mg Tab 9-13 ity of 00:00: [place] 00 [facility] traZODone 2020-0 Yes Univers 100 mg 9-13 ity of tablet 00:00: [place] 00 [facility] metoprolol 2020-0 Yes Univers succinate 9-13 ity of XL 50 mg 24 00:00: [place] hr tablet 00 Medical Branch traZODone 2020-0 Yes Univers 100 mg 9-13 ity of tablet 00:00: [place] 00 [facility] levothyroxi 2020-0 Yes Univer s ne 88 mcg 9-13 ity of tablet 00:00: [place] 00 [facility] levothyroxi 2020-0 Yes Univer s ne 75 mcg 9-13 ity of tablet 00:00: [place] 00 [facility] JARDIANCE 2020-0 Yes Univers 25 mg Tab 9-13 ity of 00:00: [place] 00 [facility] metoprolol 2020-0 Yes Univers succinate 9-13 ity of XL 50 mg 24 00:00: [place] hr tablet 00 Medical Branch traZODone 2020-0 Yes Univers 100 mg 9-13 ity of tablet 00:00: [place] 00 [facility] metoprolol 2020-0 Yes Univers succinate 9-13 ity of XL 50 mg 24 00:00: [place] hr tablet 00 Medical Branch levothyroxi 2020-0 Yes Univer s ne 88 mcg 9-13 ity of tablet 00:00: [place] 00 [facility] levothyroxi 2020-0 Yes Univer s ne 75 mcg 9-13 ity of tablet 00:00: [place] 00 [facility] JARDIANCE 2020-0 Yes Univers 25 mg Tab 9-13 ity of 00:00: [place] 00 [facility] traZODone 2020-0 Yes Univers 100 mg 9-13 ity of tablet 00:00: [place] 00 [facility] metoprolol 2020-0 Yes Univers succinate 9-13 ity of XL 50 mg 24 00:00: [place] hr tablet 00 Medical Branch levothyroxi 2020-0 Yes Univer s ne 88 mcg 9-13 ity of tablet 00:00: [place] 00 [facility] levothyroxi 2020-0 Yes Univer s ne 75 mcg 9-13 ity of tablet 00:00: [place] 00 [facility] levothyroxi 2020-0 Yes Univer s ne 88 mcg 9-13 ity of tablet 00:00: [place] 00 [facility] levothyroxi 2020-0 Yes Univer s ne 75 mcg 9-13 ity of tablet 00:00: [place] 00 [facility] JARDIANCE 2020-0 Yes Univers 25 mg Tab 9-13 ity of 00:00: [place] 00 [facility] traZODone 2020-0 Yes Univers 100 mg 9-13 ity of tablet 00:00: [place] 00 [facility] metoprolol 2020-0 Yes Univers succinate 9-13 ity of XL 50 mg 24 00:00: [place] hr tablet 00 Medical Branch levothyroxi 2020-0 Yes Univer s ne 88 mcg 9-13 ity of tablet 00:00: [place] 00 [facility] levothyroxi 2020-0 Yes Univer s ne 75 mcg 9-13 ity of tablet 00:00: [place] 00 [facility] JARDIANCE 2020-0 Yes Univers 25 mg Tab 9-13 ity of 00:00: [place] 00 [facility] traZODone 2020-0 Yes Univers 100 mg 9-13 ity of tablet 00:00: [place] 00 [facility] metoprolol 2020-0 Yes Univers succinate 9-13 ity of XL 50 mg 24 00:00: [place] hr tablet 00 Medical Branch levothyroxi 2020-0 Yes Univer s ne 88 mcg 9-13 ity of tablet 00:00: [place] 00 [facility] levothyroxi 2020-0 Yes Univer s ne 75 mcg 9-13 ity of tablet 00:00: [place] 00 [facility] JARDIANCE 2020-0 Yes Univers 25 mg Tab 9-13 ity of 00:00: [place] 00 [facility] traZODone 2020-0 Yes Univers 100 mg 9-13 ity of tablet 00:00: [place] 00 [facility] metoprolol 2020-0 Yes Univers succinate 9-13 ity of XL 50 mg 24 00:00: [place] hr tablet 00 [facility] Branch levothyroxi 2020-0 Yes Univer s ne 88 mcg 9-13 ity of tablet 00:00: [place] 00 [facility] levothyroxi 2020-0 Yes Univer s ne 75 mcg 9-13 ity of tablet 00:00: [place] 00 [facility] JARDIANCE 2020-0 Yes Univers 25 mg Tab 9-13 ity of 00:00: [place] 00 [facility] traZODone 2020-0 Yes Univers 100 mg 9-13 ity of tablet 00:00: [place] 00 [facility] metoprolol 2020-0 Yes Univers succinate 9-13 ity of XL 50 mg 24 00:00: [place] hr tablet 00 [facility] Branch levothyroxi 2020-0 Yes Univer s ne 88 mcg 9-13 ity of tablet 00:00: [place] 00 [facility] levothyroxi 2020-0 Yes Univer s ne 75 mcg 9-13 ity of tablet 00:00: [place] 00 [facility] JARDIANCE 2020-0 Yes Univers 25 mg Tab 9-13 ity of 00:00: [place] 00 [facility] traZODone 2020-0 Yes Univers 100 mg 9-13 ity of tablet 00:00: [place] 00 [facility] metoprolol 2020-0 Yes Univers succinate 9-13 ity of XL 50 mg 24 00:00: [place] hr tablet 00 Medical Branch levothyroxi 2020-0 Yes Univer s ne 88 mcg 9-13 ity of tablet 00:00: [place] 00 [facility] levothyroxi 2020-0 Yes [facility] ne 75 mcg 9-13 [facility] of tablet 00:00: [place] 00 [facility] JARDIANCE 2020-0 Yes [facility] 25 mg Tab 9-13 ity of 00:00: [place] 00 [facility] traZODone 2020-0 Yes [facility] 100 mg 9-13 [facility] of tablet 00:00: [place] 00 [facility] metoprolol 2020-0 Yes [facility] succinate 9-13 ity of XL 50 mg 24 00:00: [place] hr tablet 00 [facility] levothyroxi 2020-0 Yes [facility] ne 88 mcg 9-13 ity of tablet 00:00: [place] 00 [facility] levothyroxi 2020-0 Yes [facility] ne 75 mcg 9-13 it[facility] of tablet 00:00: [place] 00 [facility] JARDIANCE 2020-0 Yes [facility] 25 mg Tab 9-13 ity of 00:00: [place] 00 [facility] traZODone 2020-0 Yes [facility] 100 mg 9-13 it[facility] of tablet 00:00: [place] 00 [facility] metoprolol 2020-0 Yes [facility] succinate 9-13 ity of XL 50 mg 24 00:00: [place] hr tablet 00 [facility] levothyroxi 2020-0 Yes [facility] ne 88 mcg 9-13 ity of tablet 00:00: [place] 00 [facility] levothyroxi 2020-0 Yes [facility] ne 75 mcg 9-13 ity of tablet 00:00: [place] [address] [facility] JARDIANCE 2020-0 Yes [facility] 25 mg Tab 9-13 ity of 00:00: [place] 00 [facility] traZODone 2020-0 Yes [facility] 100 mg 9-13 ity of tablet 00:00: [place] 00 [facility] metoprolol 2020-0 Yes [facility] succinate 9-13 ity of XL 50 mg 24 00:00: [place] hr tablet 00 [facility] levothyroxi 2020-0 Yes [facility] ne 88 mcg 9-13 ity of tablet 00:00: [place] 00 [facility] levothyroxi 2020-0 Yes [facility] ne 75 mcg 9-13 ity of tablet 00:00: [place] 00 [facility] JARDIANCE 2020-0 Yes [facility] 25 mg Tab 9-13 ity of 00:00: [place] 00 [facility] traZODone 2020-0 Yes [facility] 100 mg 9-13 ity of tablet 00:00: [place] 00 [facility] metoprolol 2020-0 Yes [facility] succinate 9-13 ity of XL 50 mg 24 00:00: [place] hr tablet 00 [facility] levothyroxi 2020-0 Yes [facility] ne 88 mcg 9-13 ity of tablet 00:00: [place] 00 [facility] levothyroxi 2020-0 Yes [facility] ne 75 mcg 9-13 ity of tablet 00:00: [place] 00 [facility] JARDIANCE 2020-0 Yes [facility] 25 mg Tab 9-13 ity of 00:00: [place] 00 [facility] traZODone 2020-0 Yes [facility] 100 mg 9-13 ity of tablet 00:00: [place] 00 [facility] metoprolol 2020-0 Yes [facility] succinate 9-13 ity of XL 50 mg 24 00:00: [place] hr tablet 00 [facility] levothyroxi 2020-0 Yes [facility] ne 88 mcg 9-13 ity of tablet 00:00: [place] 00 [facility] levothyroxi 2020-0 Yes [facility] ne 75 mcg 9-13 ity of tablet 00:00: [place] 00 [facility] JARDIANCE 2020-0 Yes [facility] 25 mg Tab 9-13 ity of 00:00: [place] 00 [facility] traZODone 2020-0 Yes [facility] 100 mg 9-13 ity of tablet 00:00: [place] 00 [facility] metoprolol 2020-0 Yes [facility] succinate 9-13 ity of XL 50 mg 24 00:00: [place] hr tablet 00 [facility] levothyroxi 2020-0 Yes [facility] ne 88 mcg 9-13 ity of tablet 00:00: [place] 00 [facility] levothyroxi 2020-0 Yes [facility] ne 75 mcg 9-13 ity of tablet 00:00: [place] 00 [facility] JARDIANCE 2020-0 Yes [facility] 25 mg Tab 9-13 ity of 00:00: [place] 00 [facility] traZODone 2020-0 Yes [facility] 100 mg 9-13 ity of tablet 00:00: [place] 00 [facility] metoprolol 2020-0 Yes [facility] succinate 9-13 ity of XL 50 mg 24 00:00: [place] hr tablet 00 [facility] levothyroxi 2020-0 Yes [facility] ne 88 mcg 9-13 ity of tablet 00:00: [place] 00 [facility] levothyroxi 2020-0 Yes [facility] ne 75 mcg 9-13 ity of tablet 00:00: [place] 00 [facility] JARDIANCE 2020-0 Yes [facility] 25 mg Tab 9-13 ity of 00:00: [place] 00 [facility] traZODone 2020-0 Yes [facility] 100 mg 9-13 ity of tablet 00:00: [place] 00 [facility] metoprolol 2020-0 Yes [facility] succinate 9-13 ity of XL 50 mg 24 00:00: [place] hr tablet 00 [facility] levothyroxi 2020-0 Yes [facility] ne 88 mcg 9-13 ity of tablet 00:00: [place] 00 [facility] levothyroxi 2020-0 Yes [facility] ne 75 mcg 9-13 ity of tablet 00:00: [place] 00 [facility] JARDIANCE 2020-0 Yes [facility] 25 mg Tab 9-13 ity of 00:00: [place] 00 [facility] traZODone 2020-0 Yes [facility] 100 mg 9-13 ity of tablet 00:00: [place] 00 [facility] metoprolol 2020-0 Yes [facility] succinate 9-13 ity of XL 50 mg 24 00:00: [place] hr tablet 00 [facility] levothyroxi 2020-0 Yes [facility] ne 88 mcg 9-13 ity of tablet 00:00: [place] 00 [facility] levothyroxi 2020-0 Yes [facility] ne 75 mcg 9-13 ity of tablet 00:00: [place] 00 [facility] JARDIANCE 2020-0 Yes [facility] 25 mg Tab 9-13 ity of 00:00: [place] 00 [facility] traZODone 2020-0 Yes [facility] 100 mg 9-13 ity of tablet 00:00: [place] 00 [facility] metoprolol 2020-0 Yes [facility] succinate 9-13 ity of XL 50 mg 24 00:00: [place] hr tablet 00 [facility] levothyroxi 2020-0 Yes [facility] ne 88 mcg 9-13 ity of tablet 00:00: [place] 00 [facility] levothyroxi 2020-0 Yes [facility] ne 75 mcg 9-13 ity of tablet 00:00: [place] 00 [facility] JARDIANCE 2020-0 Yes [facility] 25 mg Tab 9-13 ity of 00:00: [place] 00 [facility] traZODone 2020-0 Yes [facility] 100 mg 9-13 ity of tablet 00:00: [place] 00 [facility] metoprolol 2020-0 Yes [facility] succinate 9-13 ity of XL 50 mg 24 00:00: [place] hr tablet 00 [facility] levothyroxi 2020-0 Yes [facility] ne 88 mcg 9-13 ity of tablet 00:00: [place] 00 [facility] levothyroxi 2020-0 Yes [facility] ne 75 mcg 9-13 ity of tablet 00:00: [place] 00 [facility] JARDIANCE 2020-0 Yes [facility] 25 mg Tab 9-13 ity of 00:00: [place] 00 [facility] traZODone 2020-0 Yes [facility] 100 mg 9-13 ity of tablet 00:00: [place] 00 [facility] metoprolol 2020-0 Yes [facility] succinate 9-13 ity of XL 50 mg 24 00:00: [place] hr tablet 00 [facility] levothyroxi 2020-0 Yes [facility] ne 88 mcg 9-13 ity of tablet 00:00: [place] 00 [facility] levothyroxi 2020-0 Yes [facility] ne 75 mcg 9-13 ity of tablet 00:00: [place] 00 [facility] JARDIANCE 2020-0 Yes [facility] 25 mg Tab 9-13 ity of 00:00: [place] 00 [facility] traZODone 2020-0 Yes [facility] 100 mg 9-13 ity of tablet 00:00: [place] 00 [facility] metoprolol 2020-0 Yes [facility] succinate 9-13 ity of XL 50 mg 24 00:00: [place] hr tablet 00 [facility] levothyroxi 2020-0 Yes [facility] ne 88 mcg 9-13 ity of tablet 00:00: [place] 00 [facility] levothyroxi 2020-0 Yes [facility] ne 75 mcg 9-13 ity of tablet 00:00: [place] 00 [facility] JARDIANCE 2020-0 Yes [facility] 25 mg Tab 9-13 ity of 00:00: [place] 00 [facility] traZODone 2020-0 Yes [facility] 100 mg 9-13 ity of tablet 00:00: [place] 00 [facility] metoprolol 2020-0 Yes [facility] succinate 9-13 ity of XL 50 mg 24 00:00: [place] hr tablet 00 [facility] levothyroxi 2020-0 Yes [facility] ne 88 mcg 9-13 ity of tablet 00:00: [place] 00 [facility] levothyroxi 2020-0 Yes [facility] ne 75 mcg 9-13 ity of tablet 00:00: [place] 00 [facility] JARDIANCE 2020-0 Yes [facility] 25 mg Tab 9-13 ity of 00:00: [place] 00 [facility] traZODone 2020-0 Yes [facility] 100 mg 9-13 ity of tablet 00:00: [place] 00 [facility] metoprolol 2020-0 Yes [facility] succinate 9-13 ity of XL 50 mg 24 00:00: [place] hr tablet 00 [facility] levothyroxi 2020-0 Yes [facility] ne 88 mcg 9-13 ity of tablet 00:00: [place] 00 [facility] levothyroxi 2020-0 Yes [facility] ne 75 mcg 9-13 ity of tablet 00:00: [place] 00 [facility] JARDIANCE 2020-0 Yes [facility] 25 mg Tab 9-13 ity of 00:00: [place] 00 [facility] traZODone 2020-0 Yes [facility] 100 mg 9-13 ity of tablet 00:00: [place] 00 [facility] metoprolol 2020-0 Yes [facility] succinate 9-13 ity of XL 50 mg 24 00:00: [place] hr tablet 00 [facility] levothyroxi 2020-0 Yes [facility] ne 88 mcg 9-13 ity of tablet 00:00: [place] 00 [facility] levothyroxi 2020-0 Yes [facility] ne 75 mcg 9-13 ity of tablet 00:00: [place] [address] [facility] JARDIANCE 2020-0 Yes [facility] 25 mg Tab 9-13 ity of 00:00: [place] 00 [facility] traZODone 2020-0 Yes [facility] 100 mg 9-13 ity of tablet 00:00: [place] 00 [facility] metoprolol 2020-0 Yes [facility] succinate 9-13 ity of XL 50 mg 24 00:00: [place] hr tablet 00 [facility] levothyroxi 2020-0 Yes [facility] ne 88 mcg 9-13 ity of tablet 00:00: [place] 00 [facility] levothyroxi 2020-0 Yes [facility] ne 75 mcg 9-13 ity of tablet 00:00: [place] 00 [facility] JARDIANCE 2020-0 Yes [facility] 25 mg Tab 9-13 ity of 00:00: [place] 00 [facility] traZODone 2020-0 Yes [facility] 100 mg 9-13 ity of tablet 00:00: [place] 00 [facility] metoprolol 2020-0 Yes [facility] succinate 9-13 ity of XL 50 mg 24 00:00: [place] hr tablet 00 [facility] levothyroxi 2020-0 Yes [facility] ne 88 mcg 9-13 ity of tablet 00:00: [place] 00 [facility] levothyroxi 2020-0 Yes [facility] ne 75 mcg 9-13 ity of tablet 00:00: [place] 00 [facility] JARDIANCE 2020-0 Yes [facility] 25 mg Tab 9-13 ity of 00:00: [place] 00 [facility] traZODone 2020-0 Yes [facility] 100 mg 9-13 ity of tablet 00:00: [place] 00 [facility] metoprolol 2020-0 Yes [facility] succinate 9-13 ity of XL 50 mg 24 00:00: [place] hr tablet 00 [facility] levothyroxi 2020-0 Yes [facility] ne 88 mcg 9-13 ity of tablet 00:00: [place] 00 [facility] levothyroxi 2020-0 Yes [facility] ne 75 mcg 9-13 ity of tablet 00:00: [place] 00 [facility] JARDIANCE 2020-0 Yes [facility] 25 mg Tab 9-13 ity of 00:00: [place] 00 [facility] traZODone 2020-0 Yes [facility] 100 mg 9-13 ity of tablet 00:00: [place] 00 [facility] metoprolol 2020-0 Yes [facility] succinate 9-13 ity of XL 50 mg 24 00:00: [place] hr tablet 00 [facility] levothyroxi 2020-0 Yes [facility] ne 88 mcg 9-13 ity of tablet 00:00: [place] 00 [facility] levothyroxi 2020-0 Yes [facility] ne 75 mcg 9-13 ity of tablet 00:00: [place] [address] [facility] JARDIANCE 2020-0 Yes [facility] 25 mg Tab 9-13 ity of 00:00: [place] 00 [facility] traZODone 2020-0 Yes [facility] 100 mg 9-13 ity of tablet 00:00: [place] 00 [facility] metoprolol 2020-0 Yes [facility] succinate 9-13 ity of XL 50 mg 24 00:00: [place] hr tablet 00 [facility] levothyroxi 2020-0 Yes [facility] ne 88 mcg 9-13 ity of tablet 00:00: [place] 00 [facility] levothyroxi 2020-0 Yes [facility] ne 75 mcg 9-13 ity of tablet 00:00: [place] 00 [facility] JARDIANCE 2020-0 Yes [facility] 25 mg Tab 9-13 ity of 00:00: [place] 00 [facility] traZODone 2020-0 Yes [facility] 100 mg 9-13 ity of tablet 00:00: [place] 00 [facility] metoprolol 2020-0 Yes [facility] succinate 9-13 ity of XL 50 mg 24 00:00: [place] hr tablet 00 [facility] levothyroxi 2020-0 Yes [facility] ne 88 mcg 9-13 ity of tablet 00:00: [place] 00 [facility] levothyroxi 2020-0 Yes [facility] ne 75 mcg 9-13 ity of tablet 00:00: [place] 00 [facility] JARDIANCE 2020-0 Yes [facility] 25 mg Tab 9-13 ity of 00:00: [place] 00 [facility] traZODone 2020-0 Yes [facility] 100 mg 9-13 ity of tablet 00:00: [place] 00 [facility] metoprolol 2020-0 Yes [facility] succinate 9-13 ity of XL 50 mg 24 00:00: [place] hr tablet 00 [facility] levothyroxi 2020-0 Yes [facility] ne 88 mcg 9-13 ity of tablet 00:00: [place] 00 [facility] levothyroxi 2020-0 Yes [facility] ne 75 mcg 9-13 ity of tablet 00:00: [place] 00 [facility] JARDIANCE 2020-0 Yes [facility] 25 mg Tab 9-13 ity of 00:00: [place] 00 [facility] traZODone 2020-0 Yes [facility] 100 mg 9-13 ity of tablet 00:00: [place] 00 [facility] metoprolol 2020-0 Yes [facility] succinate 9-13 ity of XL 50 mg 24 00:00: [place] hr tablet 00 [facility] levothyroxi 2020-0 Yes [facility] ne 88 mcg 9-13 ity of tablet 00:00: [place] 00 [facility] levothyroxi 2020-0 Yes [facility] ne 75 mcg 9-13 ity of tablet 00:00: [place] 00 [facility] JARDIANCE 2020-0 Yes [facility] 25 mg Tab 9-13 ity of 00:00: [place] 00 [facility] traZODone 2020-0 Yes [facility] 100 mg 9-13 ity of tablet 00:00: [place] 00 [facility] metoprolol 2020-0 Yes [facility] succinate 9-13 ity of XL 50 mg 24 00:00: [place] hr tablet 00 [facility] levothyroxi 2020-0 Yes [facility] ne 88 mcg 9-13 ity of tablet 00:00: [place] 00 [facility] levothyroxi 2020-0 Yes [facility] ne 75 mcg 9-13 ity of tablet 00:00: [place] 00 [facility] JARDIANCE 2020-0 Yes [facility] 25 mg Tab 9-13 ity of 00:00: [place] 00 [facility] traZODone 2020-0 Yes [facility] 100 mg 9-13 ity of tablet 00:00: [place] 00 [facility] metoprolol 2020-0 Yes [facility] succinate 9-13 ity of XL 50 mg 24 00:00: [place] hr tablet 00 [facility] levothyroxi 2020-0 Yes [facility] ne 88 mcg 9-13 ity of tablet 00:00: [place] 00 [facility] levothyroxi 2020-0 Yes [facility] ne 75 mcg 9-13 ity of tablet 00:00: [place] 00 [facility] JARDIANCE 2020-0 Yes [facility] 25 mg Tab 9-13 ity of 00:00: [place] 00 [facility] traZODone 2020-0 Yes [facility] 100 mg 9-13 ity of tablet 00:00: [place] 00 [facility] metoprolol 2020-0 Yes [facility] succinate 9-13 ity of XL 50 mg 24 00:00: [place] hr tablet 00 [facility] levothyroxi 2020-0 Yes [facility] ne 88 mcg 9-13 ity of tablet 00:00: [place] 00 [facility] levothyroxi 2020-0 Yes [facility] ne 75 mcg 9-13 ity of tablet 00:00: [place] 00 [facility] JARDIANCE 2020-0 Yes [facility] 25 mg Tab 9-13 ity of 00:00: [place] 00 [facility] traZODone 2020-0 Yes [facility] 100 mg 9-13 ity of tablet 00:00: [place] 00 [facility] metoprolol 2020-0 Yes [facility] succinate 9-13 ity of XL 50 mg 24 00:00: [place] hr tablet 00 [facility] acetaminoph 2020-0 Yes TAKE 2 [facility] ers en-codeine 9-07 TABLETS BY ity of 300-30 mg 00:00: MOUTH [place] tablet 00 EVERY 6 Medical HOURS [facility] NEEDED FOR PAIN acetaminoph 2020-0 Yes TAKE 2 [facility] ers en-codeine 9-07 TABLETS BY ity of 300-30 mg 00:00: MOUTH [place] tablet 00 EVERY 6 [facility] HOURS [facility] NEEDED FOR PAIN acetaminoph 2020-0 Yes TAKE 2 [facility] ers en-codeine 9-07 TABLETS BY ity of 300-30 mg 00:00: MOUTH [place] tablet 00 EVERY 6 [facility] HOU[facility] NEEDED FOR PAIN acetaminoph 2020-0 Yes TAKE 2 [facility] ers en-codeine 9-07 TABLETS BY ity of 300-30 mg 00:00: MOUTH [place] tablet 00 EVERY 6 [facility] HOU[facility] NEEDED FOR PAIN acetaminoph 2020-0 Yes TAKE 2 [facility] ers en-codeine 9-07 TABLETS BY ity of 300-30 mg 00:00: MOUTH [place] tablet 00 EVERY 6 [facility] HOU[facility] NEEDED FOR PAIN acetaminoph 2020-0 Yes TAKE 2 [facility] ers en-codeine 9-07 TABLETS BY ity of 300-30 mg 00:00: MOUTH [place] tablet 00 EVERY 6 [facility] HOU[facility] NEEDED FOR PAIN acetaminoph 2020-0 Yes TAKE 2 [facility] ers en-codeine 9-07 TABLETS BY ity of 300-30 mg 00:00: MOUTH [place] tablet 00 EVERY 6 [facility] HOU[facility] NEEDED FOR PAIN acetaminoph 2020-0 Yes TAKE 2 [facility] ers en-codeine 9-07 TABLETS BY ity of 300-30 mg 00:00: MOUTH [place] tablet 00 EVERY 6 [facility] HOURS [facility] NEEDED FOR PAIN acetaminoph 2020-0 Yes TAKE 2 [facility] ers en-codeine 9-07 TABLETS BY ity of 300-30 mg 00:00: MOUTH [place] tablet 00 EVERY 6 [facility] HOURS [facility] NEEDED FOR PAIN acetaminoph 2020-0 Yes TAKE 2 [facility] ers en-codeine 9-07 TABLETS BY ity of 300-30 mg 00:00: MOUTH [place] tablet 00 EVERY 6 [facility] HOU[facility] NEEDED FOR PAIN acetaminoph 2020-0 Yes TAKE 2 [facility] ers en-codeine 9-07 TABLETS BY ity of 300-30 mg 00:00: MOUTH [place] tablet 00 EVERY 6 [facility] HOU[facility] NEEDED FOR PAIN acetaminoph 2020-0 Yes TAKE 2 [facility] ers en-codeine 9-07 TABLETS BY ity of 300-30 mg 00:00: MOUTH [place] tablet 00 EVERY 6 [facility] HOU[facility] NEEDED FOR PAIN acetaminoph 2020-0 Yes TAKE 2 [facility] ers en-codeine 9-07 TABLETS BY ity of 300-30 mg 00:00: MOUTH [place] tablet 00 EVERY 6 [facility] HOU[facility] NEEDED FOR PAIN acetaminoph 2020-0 Yes TAKE 2 [facility] ers en-codeine 9-07 TABLETS BY ity of 300-30 mg 00:00: MOUTH [place] tablet 00 EVERY 6 [facility] HOU[facility] NEEDED FOR PAIN acetaminoph 2020-0 Yes TAKE 2 [facility] ers en-codeine 9-07 TABLETS BY ity of 300-30 mg 00:00: MOUTH [place] tablet 00 EVERY 6 [facility] HOU[facility] NEEDED FOR PAIN acetaminoph 2020-0 Yes TAKE 2 [facility] ers en-codeine 9-07 TABLETS BY ity of 300-30 mg 00:00: MOUTH [place] tablet 00 EVERY 6 [facility] HOURS [facility] NEEDED FOR PAIN acetaminoph 2020-0 Yes TAKE 2 [facility] ers en-codeine 9-07 TABLETS BY ity of 300-30 mg 00:00: MOUTH [place] tablet 00 EVERY 6 [facility] HOU[facility] NEEDED FOR PAIN acetaminoph 2020-0 Yes TAKE 2 [facility] ers en-codeine 9-07 TABLETS BY ity of 300-30 mg 00:00: MOUTH [place] tablet 00 EVERY 6 [facility] HOU[facility] NEEDED FOR PAIN acetaminoph 2020-0 Yes TAKE 2 [facility] ers en-codeine 9-07 TABLETS BY ity of 300-30 mg 00:00: MOUTH [place] tablet 00 EVERY 6 [facility] HOU[facility] NEEDED FOR PAIN acetaminoph 2020-0 Yes TAKE 2 [facility] ers en-codeine 9-07 TABLETS BY ity of 300-30 mg 00:00: MOUTH [place] tablet 00 EVERY 6 [facility] HOU[facility] NEEDED FOR PAIN acetaminoph 2020-0 Yes TAKE 2 [facility] ers en-codeine 9-07 TABLETS BY ity of 300-30 mg 00:00: MOUTH [place] tablet 00 EVERY 6 [facility] HOU[facility] NEEDED FOR PAIN acetaminoph 2020-0 Yes TAKE 2 [facility] ers en-codeine 9-07 TABLETS BY ity of 300-30 mg 00:00: MOUTH [place] tablet 00 EVERY 6 [facility] HOU[facility] NEEDED FOR PAIN acetaminoph 2020-0 Yes TAKE 2 [facility] ers en-codeine 9-07 TABLETS BY ity of 300-30 mg 00:00: MOUTH [place] tablet 00 EVERY 6 [facility] HOU[facility] NEEDED FOR PAIN acetaminoph 2020-0 Yes TAKE 2 [facility] ers en-codeine 9-07 TABLETS BY ity of 300-30 mg 00:00: MOUTH [place] tablet 00 EVERY 6 [facility] HOU[facility] NEEDED FOR PAIN acetaminoph 2020-0 Yes TAKE 2 [facility] ers en-codeine 9-07 TABLETS BY ity of 300-30 mg 00:00: MOUTH [place] tablet 00 EVERY 6 [facility] HOU[facility] NEEDED FOR PAIN acetaminoph 2020-0 Yes TAKE 2 [facility] ers en-codeine 9-07 TABLETS BY ity of 300-30 mg 00:00: MOUTH [place] tablet 00 EVERY 6 [facility] HOU[facility] NEEDED FOR PAIN acetaminoph 2020-0 Yes TAKE 2 [facility] ers en-codeine 9-07 TABLETS BY ity of 300-30 mg 00:00: MOUTH [place] tablet 00 EVERY 6 [facility] HOU[facility] NEEDED FOR PAIN acetaminoph 2020-0 Yes TAKE 2 [facility] ers en-codeine 9-07 TABLETS BY ity of 300-30 mg 00:00: MOUTH [place] tablet 00 EVERY 6 [facility] HOU[facility] NEEDED FOR PAIN acetaminoph 2020-0 Yes TAKE 2 [facility] ers en-codeine 9-07 TABLETS BY ity of 300-30 mg 00:00: MOUTH [place] tablet 00 EVERY 6 [facility] HOU[facility] NEEDED FOR PAIN acetaminoph 2020-0 Yes TAKE 2 [facility] ers en-codeine 9-07 TABLETS BY ity of 300-30 mg 00:00: MOUTH [place] tablet 00 EVERY 6 [facility] HOU[facility] NEEDED FOR PAIN acetaminoph 2020-0 Yes TAKE 2 [facility] ers en-codeine 9-07 TABLETS BY ity of 300-30 mg 00:00: MOUTH [place] tablet 00 EVERY 6 [facility] HOU[facility] NEEDED FOR PAIN acetaminoph 2020-0 Yes TAKE 2 [facility] ers en-codeine 9-07 TABLETS BY ity of 300-30 mg 00:00: MOUTH [place] tablet 00 EVERY 6 [facility] HOU[facility] NEEDED FOR PAIN acetaminoph 2020-0 Yes TAKE 2 [facility] ers en-codeine 9-07 TABLETS BY ity of 300-30 mg 00:00: MOUTH [place] tablet 00 EVERY 6 [facility] HOU[facility] NEEDED FOR PAIN acetaminoph 2020-0 Yes TAKE 2 [facility] ers en-codeine 9-07 TABLETS BY ity of 300-30 mg 00:00: MOUTH [place] tablet 00 EVERY 6 [facility] HOU[facility] NEEDED FOR PAIN acetaminoph 2020-0 Yes TAKE 2 [facility] en-codeine 9-07 TABLETS BY ity of 300-30 mg 00:00: MOUTH [place] tablet 00 EVERY 6 [facility] HOU[facility] NEEDED FOR PAIN acetaminoph 2020-0 Yes TAKE 2 [facility] en-codeine 9-07 TABLETS BY ity of 300-30 mg 00:00: MOUTH [place] tablet 00 EVERY 6 [facility] HOU[facility] NEEDED FOR PAIN acetaminoph 2020-0 Yes TAKE 2 [facility] ers en-codeine 9-07 TABLETS BY ity of 300-30 mg 00:00: MOUTH [place] tablet 00 EVERY 6 [facility] HOU[facility] NEEDED FOR PAIN acetaminoph 2020-0 Yes TAKE 2 [facility] ers en-codeine 9-07 TABLETS BY ity of 300-30 mg 00:00: MOUTH [place] tablet 00 EVERY 6 [facility] HOU[facility] NEEDED FOR PAIN acetaminoph 2020-0 Yes TAKE 2 [facility] ers en-codeine 9-07 TABLETS BY ity of 300-30 mg 00:00: MOUTH [place] tablet 00 EVERY 6 [facility] HOU[facility] NEEDED FOR PAIN acetaminoph 2020-0 Yes TAKE 2 [facility] en-codeine 9-07 TABLETS BY ity of 300-30 mg 00:00: MOUTH [place] tablet 00 EVERY 6 [facility] HOU[facility] NEEDED FOR PAIN acetaminoph 2020-0 Yes TAKE 2 [facility] ers en-codeine 9-07 TABLETS BY ity of 300-30 mg 00:00: MOUTH [place] tablet 00 EVERY 6 [facility] HOU[facility] NEEDED FOR PAIN acetaminoph 2020-0 Yes TAKE 2 [facility] ers en-codeine 9-07 TABLETS BY ity of 300-30 mg 00:00: MOUTH [place] tablet 00 EVERY 6 [facility] HOU[facility] NEEDED FOR PAIN acetaminoph 2020-0 Yes TAKE 2 [facility] en-codeine 9-07 TABLETS BY ity of 300-30 mg 00:00: MOUTH [place] tablet 00 EVERY 6 [facility] HOU[facility] NEEDED FOR PAIN acetaminoph 2020-0 Yes TAKE 2 [facility] en-codeine 9-07 TABLETS BY ity of 300-30 mg 00:00: MOUTH [place] tablet 00 EVERY 6 [facility] HOU[facility] NEEDED FOR PAIN acetaminoph 2020-0 Yes TAKE 2 [facility] ers en-codeine 9-07 TABLETS BY ity of 300-30 mg 00:00: MOUTH [place] tablet 00 EVERY 6 [facility] HOU[facility] NEEDED FOR PAIN acetaminoph 2020-0 Yes TAKE 2 [facility] en-codeine 9-07 TABLETS BY ity of 300-30 mg 00:00: MOUTH [place] tablet 00 EVERY 6 [facility] HOU[facility] NEEDED FOR PAIN acetaminoph 2020-0 Yes TAKE 2 [facility] en-codeine 9-07 TABLETS BY ity of 300-30 mg 00:00: MOUTH [place] tablet 00 EVERY 6 [facility] HOU[facility] NEEDED FOR PAIN acetaminoph 2020-0 Yes TAKE 2 [facility] en-codeine 9-07 TABLETS BY ity of 300-30 mg 00:00: MOUTH [place] tablet 00 EVERY 6 [facility] HOU[facility] NEEDED FOR PAIN acetaminoph 2020-0 Yes TAKE 2 [facility] en-codeine 9-07 TABLETS BY ity of 300-30 mg 00:00: MOUTH [place] tablet 00 EVERY 6 [facility] HOU[facility] NEEDED FOR PAIN acetaminoph 2020-0 Yes TAKE 2 [facility] en-codeine 9-07 TABLETS BY ity of 300-30 mg 00:00: MOUTH [place] tablet 00 EVERY 6 [facility] HOU[facility] NEEDED FOR PAIN acetaminoph 2020-0 Yes TAKE 2 [facility] en-codeine 9-07 TABLETS BY ity of 300-30 mg 00:00: MOUTH [place] tablet 00 EVERY 6 [facility] HOU[facility] NEEDED FOR PAIN acetaminoph 2020-0 Yes TAKE 2 [facility] en-codeine 9-07 TABLETS BY ity of 300-30 mg 00:00: MOUTH [place] tablet 00 EVERY 6 [facility] HOU[facility] NEEDED FOR PAIN acetaminoph 2020-0 Yes TAKE 2 [facility] en-codeine 9-07 TABLETS BY ity of 300-30 mg 00:00: MOUTH [place] tablet 00 EVERY 6 [facility] HOU[facility] NEEDED FOR PAIN acetaminoph 2020-0 Yes TAKE 2 [facility] en-codeine 9-07 TABLETS BY ity of 300-30 mg 00:00: MOUTH [place] tablet 00 EVERY 6 [facility] HOU[facility] NEEDED FOR PAIN acetaminoph 2020-0 Yes TAKE 2 [facility] en-codeine 9-07 TABLETS BY ity of 300-30 mg 00:00: MOUTH [place] tablet 00 EVERY 6 [facility] HOU[facility] NEEDED FOR PAIN acetaminoph 2020-0 Yes TAKE 2 [facility] en-codeine 9-07 TABLETS BY ity of 300-30 mg 00:00: MOUTH [place] tablet 00 EVERY 6 [facility] HOU[facility] NEEDED FOR PAIN acetaminoph 2020-0 Yes TAKE 2 [facility] en-codeine 9-07 TABLETS BY ity of 300-30 mg 00:00: MOUTH [place] tablet 00 EVERY 6 [facility] HOU[facility] NEEDED FOR PAIN acetaminoph 2020-0 Yes TAKE 2 [facility] en-codeine 9-07 TABLETS BY ity of 300-30 mg 00:00: MOUTH [place] tablet 00 EVERY 6 [facility] HOU[facility] NEEDED FOR PAIN acetaminoph 2020-0 Yes TAKE 2 [facility] en-codeine 9-07 TABLETS BY ity of 300-30 mg 00:00: MOUTH [place] tablet 00 EVERY 6 [facility] HOU[facility] NEEDED FOR PAIN acetaminoph 2020-0 Yes TAKE 2 [facility] en-codeine 9-07 TABLETS BY ity of 300-30 mg 00:00: MOUTH [place] tablet 00 EVERY 6 [facility] HOU[facility] NEEDED FOR PAIN acetaminoph 2020-0 Yes TAKE 2 [facility] en-codeine 9-07 TABLETS BY ity of 300-30 mg 00:00: MOUTH [place] tablet 00 EVERY 6 [facility] HOU[facility] NEEDED FOR PAIN acetaminoph 2020-0 Yes TAKE 2 [facility] en-codeine 9-07 TABLETS BY ity of 300-30 mg 00:00: MOUTH [place] tablet 00 EVERY 6 [facility] HOU[facility] NEEDED FOR PAIN acetaminoph 2020-0 Yes TAKE 2 [facility] en-codeine 9-07 TABLETS BY ity of 300-30 mg 00:00: MOUTH [place] tablet 00 EVERY 6 [facility] HOU[facility] NEEDED FOR PAIN acetaminoph 2020-0 Yes TAKE 2 [facility] en-codeine 9-07 TABLETS BY ity of 300-30 mg 00:00: MOUTH [place] tablet 00 EVERY 6 [facility] HOU[facility] NEEDED FOR PAIN acetaminoph 2020-0 Yes TAKE 2 [facility] en-codeine 9-07 TABLETS BY ity of 300-30 mg 00:00: MOUTH [place] tablet 00 EVERY 6 [facility] HOU[facility] NEEDED FOR PAIN acetaminoph 2020-0 Yes TAKE 2 [facility] en-codeine 9-07 TABLETS BY ity of 300-30 mg 00:00: MOUTH [place] tablet 00 EVERY 6 [facility] HOU[facility] NEEDED FOR PAIN acetaminoph 2020-0 Yes TAKE 2 [facility] en-codeine 9-07 TABLETS BY ity of 300-30 mg 00:00: MOUTH [place] tablet 00 EVERY 6 [facility] HOU[facility] NEEDED FOR PAIN acetaminoph 2020-0 Yes TAKE 2 [facility] en-codeine 9-07 TABLETS BY ity of 300-30 mg 00:00: MOUTH [place] tablet 00 EVERY 6 [facility] HOU[facility] NEEDED FOR PAIN acetaminoph 2020-0 Yes TAKE 2 [facility] en-codeine 9-07 TABLETS BY [facility] 300-30 mg 00:00: MOUTH [place] tablet 00 EVERY 6 [facility] HOURS [facility] NEEDED FOR PAIN acetaminoph 2020-0 Yes TAKE 2 [facility] en-codeine 9-07 TABLETS BY [facility] 300-30 mg 00:00: MOUTH [place] tablet 00 EVERY 6 [facility] HOURS [facility] NEEDED FOR PAIN acetaminoph 2020-0 Yes TAKE 2 [facility] en-codeine 9-07 TABLETS BY [facility] 300-30 mg 00:00: MOUTH [place] tablet 00 EVERY 6 [facility] HOURS [facility] NEEDED FOR PAIN acetaminoph 2020-0 Yes TAKE 2 [facility] en-codeine 9-07 TABLETS BY [facility] 300-30 mg 00:00: MOUTH [place] tablet 00 EVERY 6 [facility] HOURS [facility] NEEDED FOR PAIN acetaminoph 2020-0 Yes TAKE 2 [facility] en-codeine 9-07 TABLETS BY [facility] 300-30 mg 00:00: MOUTH [place] tablet 00 EVERY 6 [facility] HOURS [facility] NEEDED FOR PAIN meloxicam 2020-0 Yes TAKE 1 [facility] 7[facility]5 mg 9-05 TABLET BY [facility] tablet 00:00: MOUTH ONCE DAILY WITH [facility] FOOD [facility] ondansetron 2020-0 Yes TAKE 1 [facility] 4 mg tablet 9-05 TABLET BY [facility] 00:00: MOUTH [place] 00 EVERY 12 [facility] HOURS [facility] NEEDED meloxicam 2020-0 Yes TAKE 1 [facility] 7[facility]5 mg 9-05 TABLET BY [facility] tablet 00:00: MOUTH ONCE DAILY WITH [facility] FOOD [facility] ondansetron 2020-0 Yes TAKE 1 [facility] 4 mg tablet 9-05 TABLET BY [facility] 00:00: MOUTH [place] 00 EVERY 12 [facility] HOURS [facility] NEEDED meloxicam 2020-0 Yes TAKE 1 [facility] 7[facility]5 mg 9-05 TABLET BY [facility] tablet 00:00: MOUTH DAILY WITH [facility] FOOD [facility] ondansetron 2020-0 Yes TAKE 1 [facility] 4 mg tablet 9-05 TABLET BY [facility] 00:00: MOUTH [place] 00 EVERY 12 [facility] HOU[facility] NEEDED meloxicam 2020-0 Yes TAKE 1 [facility] 7[facility]5 mg 9-05 TABLET BY [facility] tablet 00:00: MOUTH DAILY WITH [facility] FOOD [facility] ondansetron 2020-0 Yes TAKE 1 [facility] 4 mg tablet 9-05 TABLET BY [facility] 00:00: MOUTH [place] 00 EVERY 12 [facility] HOU[facility] NEEDED meloxicam 2020-0 Yes TAKE 1 [facility] 7[facility]5 mg 9-05 TABLET BY [facility] tablet 00:00: MOUTH DAILY WITH [facility] FOOD [facility] ondansetron 2020-0 Yes TAKE 1 [facility] 4 mg tablet 9-05 TABLET BY [facility] 00:00: MOUTH [place] 00 EVERY 12 [facility] HOU[facility] NEEDED meloxicam 2020-0 Yes TAKE 1 [facility] 7[facility]5 mg 9-05 TABLET BY [facility] tablet 00:00: MOUTH DAILY WITH [facility] FOOD [facility] ondansetron 2020-0 Yes TAKE 1 [facility] 4 mg tablet 9-05 TABLET BY [facility] 00:00: MOUTH [place] 00 EVERY 12 [facility] HOU[facility] NEEDED meloxicam 2020-0 Yes TAKE 1 [facility] 7[facility]5 mg 9-05 TABLET BY [facility] tablet 00:00: MOUTH ONCE DAILY WITH [facility] FOOD [facility] ondansetron 2020-0 Yes TAKE 1 [facility] 4 mg tablet 9-05 TABLET BY [facility] 00:00: MOUTH EVERY 12 [facility] HOU[facility] NEEDED meloxicam 2020-0 Yes TAKE 1 [facility] 7[facility]5 mg 9-05 TABLET BY [facility] tablet 00:00: MOUTH DAILY WITH [facility] FO[facility] ondansetron 2020-0 Yes TAKE 1 [facility] 4 mg tablet 9-05 TABLET BY [facility] 00:00: MOUTH EVERY 12 [facility] HOU[facility] NEEDED meloxicam 2020-0 Yes TAKE 1 [facility] 7[facility]5 mg 9-05 TABLET BY [facility] tablet 00:00: MOUTH DAILY WITH [facility] FOOD [facility] ondansetron 2020-0 Yes TAKE 1 [facility] 4 mg tablet 9-05 TABLET BY [facility] 00:00: MOUTH EVERY 12 [facility] HOU[facility] NEEDED meloxicam 2020-0 Yes TAKE 1 [facility] 7[facility]5 mg 9-05 TABLET BY [facility] tablet 00:00: MOUTH DAILY WITH [facility] FO[facility] ondansetron 2020-0 Yes TAKE 1 [facility] 4 mg tablet 9-05 TABLET BY [facility] 00:00: MOUTH EVERY 12 [facility] HOU[facility] NEEDED meloxicam 2020-0 Yes TAKE 1 [facility] 7[facility]5 mg 9-05 TABLET BY [facility] tablet 00:00: MOUTH DAILY WITH [facility] FOOD [facility] ondansetron 2020-0 Yes TAKE 1 [facility] 4 mg tablet 9-05 TABLET BY [facility] 00:00: MOUTH EVERY 12 [facility] HOU[facility] NEEDED meloxicam 2020-0 Yes TAKE 1 [facility] 7[facility]5 mg 9-05 TABLET BY [facility] tablet 00:00: MOUTH DAILY WITH [facility] FO[facility] ondansetron 2020-0 Yes TAKE 1 [facility] 4 mg tablet 9-05 TABLET BY [facility] 00:00: MOUTH EVERY 12 [facility] HOU[facility] NEEDED meloxicam 2020-0 Yes TAKE 1 [facility] 7[facility]5 mg 9-05 TABLET BY [facility] tablet 00:00: MOUTH DAILY WITH [facility] FO[facility] ondansetron 2020-0 Yes TAKE 1 [facility] 4 mg tablet 9-05 TABLET BY [facility] 00:00: MOUTH EVERY 12 [facility] HOU[facility] NEEDED meloxicam 2020-0 Yes TAKE 1 [facility] 7[facility]5 mg 9-05 TABLET BY [facility] tablet 00:00: MOUTH ONCE DAILY WITH [facility] FO[facility] ondansetron 2020-0 Yes TAKE 1 [facility] 4 mg tablet 9-05 TABLET BY [facility] 00:00: MOUTH EVERY 12 [facility] HOU[facility] NEEDED meloxicam 2020-0 Yes TAKE 1 [facility] 7[facility]5 mg 9-05 TABLET BY [facility] tablet 00:00: MOUTH ONCE DAILY WITH [facility] FO[facility] ondansetron 2020-0 Yes TAKE 1 [facility] 4 mg tablet 9-05 TABLET BY [facility] 00:00: MOUTH EVERY 12 [facility] HOU[facility] NEEDED meloxicam 2020-0 Yes TAKE 1 [facility] 7[facility]5 mg 9-05 TABLET BY [facility] tablet 00:00: MOUTH DAILY WITH [facility] FO[facility] ondansetron 2020-0 Yes TAKE 1 [facility] 4 mg tablet 9-05 TABLET BY [facility] 00:00: MOUTH EVERY 12 [facility] HOU[facility] NEEDED meloxicam 2020-0 Yes TAKE 1 [facility] 7[facility]5 mg 9-05 TABLET BY [facility] tablet 00:00: MOUTH ONCE DAILY WITH [facility] FO[facility] ondansetron 2020-0 Yes TAKE 1 [facility] 4 mg tablet 9-05 TABLET BY [facility] 00:00: MOUTH EVERY 12 [facility] HOU[facility] NEEDED meloxicam 2020-0 Yes TAKE 1 [facility] 7[facility]5 mg 9-05 TABLET BY [facility] tablet 00:00: MOUTH DAILY WITH [facility] FO[facility] ondansetron 2020-0 Yes TAKE 1 [facility] 4 mg tablet 9-05 TABLET BY [facility] 00:00: MOUTH EVERY 12 [facility] HOU[facility] NEEDED meloxicam 2020-0 Yes TAKE 1 [facility] 7[facility]5 mg 9-05 TABLET BY [facility] tablet 00:00: MOUTH ONCE DAILY WITH [facility] FO[facility] ondansetron 2020-0 Yes TAKE 1 [facility] 4 mg tablet 9-05 TABLET BY [facility] 00:00: MOUTH EVERY 12 [facility] NEEDED meloxicam 2020-0 Yes TAKE 1 [facility] 7[facility]5 mg 9-05 TABLET BY [facility] tablet 00:00: MOUTH DAILY WITH [facility] FO[facility] ondansetron 2020-0 Yes TAKE 1 [facility] 4 mg tablet 9-05 TABLET BY [facility] 00:00: MOUTH EVERY 12 [facility] NEEDED meloxicam 2020-0 Yes TAKE 1 [facility] 7[facility]5 mg 9-05 TABLET BY [facility] tablet 00:00: MOUTH ONCE DAILY WITH [facility] FO[facility] ondansetron 2020-0 Yes TAKE 1 [facility] 4 mg tablet 9-05 TABLET BY [facility] 00:00: MOUTH EVERY 12 [facility] HOU[facility] NEEDED meloxicam 2020-0 Yes TAKE 1 [facility] 7[facility]5 mg 9-05 TABLET BY [facility] tablet 00:00: MOUTH ONCE DAILY WITH [facility] FO[facility] ondansetron 2020-0 Yes TAKE 1 [facility] 4 mg tablet 9-05 TABLET BY [facility] 00:00: MOUTH EVERY 12 [facility] NEEDED meloxicam 2020-0 Yes TAKE 1 [facility] 7[facility]5 mg 9-05 TABLET BY [facility] tablet 00:00: MOUTH DAILY WITH [facility] FO[facility] ondansetron 2020-0 Yes TAKE 1 [facility] 4 mg tablet 9-05 TABLET BY [facility] 00:00: MOUTH EVERY 12 [facility] NEEDED meloxicam 2020-0 Yes TAKE 1 [facility] 7[facility]5 mg 9-05 TABLET BY [facility] tablet 00:00: MOUTH DAILY WITH [facility] FO[facility] ondansetron 2020-0 Yes TAKE 1 [facility] 4 mg tablet 9-05 TABLET BY [facility] 00:00: MOUTH EVERY 12 [facility] NEEDED meloxicam 2020-0 Yes TAKE 1 [facility] 7[facility]5 mg 9-05 TABLET BY [facility] tablet 00:00: MOUTH DAILY WITH [facility] FO[facility] ondansetron 2020-0 Yes TAKE 1 [facility] 4 mg tablet 9-05 TABLET BY [facility] 00:00: MOUTH EVERY 12 [facility] NEEDED meloxicam 2020-0 Yes TAKE 1 [facility] 7[facility]5 mg 9-05 TABLET BY [facility] tablet 00:00: MOUTH DAILY WITH [facility] FO[facility] ondansetron 2020-0 Yes TAKE 1 [facility] 4 mg tablet 9-05 TABLET BY [facility] 00:00: MOUTH EVERY 12 [facility] NEEDED meloxicam 2020-0 Yes TAKE 1 [facility] 7[facility]5 mg 9-05 TABLET BY [facility] tablet 00:00: MOUTH ONCE DAILY WITH [facility] FO[facility] ondansetron 2020-0 Yes TAKE 1 [facility] 4 mg tablet 9-05 TABLET BY [facility] 00:00: MOUTH EVERY 12 [facility] NEEDED meloxicam 2020-0 Yes TAKE 1 [facility] 7[facility]5 mg 9-05 TABLET BY [facility] tablet 00:00: MOUTH DAILY WITH [facility] FO[facility] ondansetron 2020-0 Yes TAKE 1 [facility] 4 mg tablet 9-05 TABLET BY [facility] 00:00: MOUTH EVERY 12 [facility] NEEDED meloxicam 2020-0 Yes TAKE 1 [facility] 7[facility]5 mg 9-05 TABLET BY [facility] tablet 00:00: MOUTH DAILY WITH [facility] FO[facility] ondansetron 2020-0 Yes TAKE 1 [facility] 4 mg tablet 9-05 TABLET BY [facility] 00:00: MOUTH EVERY 12 [facility] NEEDED meloxicam 2020-0 Yes TAKE 1 [facility] 7[facility]5 mg 9-05 TABLET BY [facility] tablet 00:00: MOUTH DAILY WITH [facility] FO[facility] ondansetron 2020-0 Yes TAKE 1 [facility] 4 mg tablet 9-05 TABLET BY [facility] 00:00: MOUTH EVERY 12 [facility] NEEDED meloxicam 2020-0 Yes TAKE 1 [facility] 7[facility]5 mg 9-05 TABLET BY [facility] tablet 00:00: MOUTH DAILY WITH [facility] FO[facility] ondansetron 2020-0 Yes TAKE 1 [facility] 4 mg tablet 9-05 TABLET BY [facility] 00:00: MOUTH EVERY 12 [facility] NEEDED meloxicam 2020-0 Yes TAKE 1 [facility] 7[facility]5 mg 9-05 TABLET BY [facility] tablet 00:00: MOUTH DAILY WITH [facility] FO[facility] ondansetron 2020-0 Yes TAKE 1 [facility] 4 mg tablet 9-05 TABLET BY [facility] 00:00: MOUTH EVERY 12 [facility] NEEDED ondansetron 2020-0 Yes TAKE 1 [facility] 4 mg tablet 9-05 TABLET BY [facility] 00:00: MOUTH EVERY 12 [facility] NEEDED meloxicam 2020-0 Yes TAKE 1 [facility] 7[facility]5 mg 9-05 TABLET BY [facility] tablet 00:00: MOUTH DAILY WITH [facility] FO[facility] meloxicam 2020-0 Yes TAKE 1 [facility] 7[facility]5 mg 9-05 TABLET BY [facility] tablet 00:00: MOUTH ONCE DAILY WITH [facility] FO[facility] ondansetron 2020-0 Yes TAKE 1 [facility] 4 mg tablet 9-05 TABLET BY [facility] 00:00: MOUTH EVERY 12 [facility] NEEDED meloxicam 2020-0 Yes TAKE 1 [facility] 7[facility]5 mg 9-05 TABLET BY [facility] tablet 00:00: MOUTH ONCE DAILY WITH [facility] FO[facility] ondansetron 2020-0 Yes TAKE 1 [facility] 4 mg tablet 9-05 TABLET BY [facility] 00:00: MOUTH EVERY 12 [facility] HOU[facility] NEEDED meloxicam 2020-0 Yes TAKE 1 [facility] 7[facility]5 mg 9-05 TABLET BY [facility] tablet 00:00: MOUTH DAILY WITH [facility] FO[facility] ondansetron 2020-0 Yes TAKE 1 [facility] 4 mg tablet 9-05 TABLET BY [facility] 00:00: MOUTH EVERY 12 [facility] HOU[facility] NEEDED meloxicam 2020-0 Yes TAKE 1 [facility] 7[facility]5 mg 9-05 TABLET BY [facility] tablet 00:00: MOUTH ONCE DAILY WITH [facility] FO[facility] ondansetron 2020-0 Yes TAKE 1 [facility] 4 mg tablet 9-05 TABLET BY [facility] 00:00: MOUTH EVERY 12 [facility] HOU[facility] NEEDED meloxicam 2020-0 Yes TAKE 1 [facility] 7[facility]5 mg 9-05 TABLET BY [facility] tablet 00:00: MOUTH DAILY WITH [facility] FOOD [facility] traMADoL 50 2020-0 Yes 50mg Take 50 mg [facility] tablet 9-05 by mouth [facility] 00:00: every 8 (eight) Medical hours as [facility] needed. ondansetron 2020-0 Yes TAKE 1 [facility] 4 mg tablet 9-05 TABLET BY [facility] 00:00: MOUTH EVERY 12 [facility] HOU[facility] NEEDED meloxicam 2020-0 Yes TAKE 1 [facility] 7[facility]5 mg 9-05 TABLET BY [facility] tablet 00:00: MOUTH ONCE DAILY WITH [facility] FOOD [facility] traMADoL 50 2020-0 Yes 50mg Take 50 mg [facility] tablet 9-05 by mouth [facility] 00:00: every 8 (eight) Medical hours as [facility] needed. ondansetron 2020-0 Yes TAKE 1 [facility] 4 mg tablet 9-05 TABLET BY [facility] 00:00: MOUTH EVERY 12 [facility] HOU[facility] NEEDED meloxicam 2020-0 Yes TAKE 1 [facility] 7[facility]5 mg 9-05 TABLET BY [facility] tablet 00:00: MOUTH ONCE DAILY WITH [facility] FOOD [facility] traMADoL 50 2020-0 Yes 50mg Take 50 mg [facility] tablet 9-05 by mouth [facility] 00:00: every 8 (eight) Medical hours as [facility] needed. ondansetron 2020-0 Yes TAKE 1 [facility] 4 mg tablet 9-05 TABLET BY [facility] 00:00: MOUTH EVERY 12 [facility] HOU[facility] NEEDED meloxicam 2020-0 Yes TAKE 1 [facility] 7[facility]5 mg 9-05 TABLET BY [facility] tablet 00:00: MOUTH ONCE DAILY WITH [facility] FOOD [facility] traMADoL 50 2020-0 Yes 50mg Take 50 mg [facility] tablet 9-05 by mouth [facility] 00:00: every 8 (eight) Medical hours as [facility] needed. ondansetron 2020-0 Yes TAKE 1 [facility] 4 mg tablet 9-05 TABLET BY [facility] 00:00: MOUTH EVERY 12 [facility] HOU[facility] NEEDED meloxicam 2020-0 Yes TAKE 1 [facility] 7[facility]5 mg 9-05 TABLET BY [facility] tablet 00:00: MOUTH ONCE DAILY WITH [facility] FOOD [facility] traMADoL 50 2020-0 Yes 50mg Take 50 mg [facility] tablet 9-05 by mouth [facility] 00:00: every 8 (eight) Medical hours as [facility] needed. ondansetron 2020-0 Yes TAKE 1 [facility] 4 mg tablet 9-05 TABLET BY [facility] 00:00: MOUTH EVERY 12 [facility] HOU[facility] NEEDED meloxicam 2020-0 Yes TAKE 1 [facility] 7[facility]5 mg 9-05 TABLET BY [facility] tablet 00:00: MOUTH ONCE DAILY WITH [facility] FOOD [facility] traMADoL 50 2020-0 Yes 50mg Take 50 mg [facility] tablet 9-05 by mouth [facility] 00:00: every 8 (eight) Medical hours as [facility] needed. ondansetron 2020-0 Yes TAKE 1 [facility] 4 mg tablet 9-05 TABLET BY [facility] 00:00: MOUTH EVERY 12 [facility] HOU[facility] NEEDED meloxicam 2020-0 Yes TAKE 1 [facility] 7[facility]5 mg 9-05 TABLET BY [facility] tablet 00:00: MOUTH ONCE DAILY WITH [facility] FOOD [facility] traMADoL 50 2020-0 Yes 50mg Take 50 mg [facility] tablet 9-05 by mouth [facility] 00:00: every 8 (eight) Medical hours as [facility] needed. ondansetron 2020-0 Yes TAKE 1 [facility] 4 mg tablet 9-05 TABLET BY [facility] 00:00: MOUTH EVERY 12 [facility] HOU[facility] NEEDED meloxicam 2020-0 Yes TAKE 1 [facility] 7[facility]5 mg 9-05 TABLET BY [facility] tablet 00:00: MOUTH ONCE DAILY WITH [facility] FOOD [facility] traMADoL 50 2020-0 Yes 50mg Take 50 mg [facility] tablet 9-05 by mouth [facility] 00:00: every 8 (eight) Medical hours as [facility] needed. ondansetron 2020-0 Yes TAKE 1 [facility] 4 mg tablet 9-05 TABLET BY [facility] 00:00: MOUTH EVERY 12 [facility] HOU[facility] NEEDED meloxicam 2020-0 Yes TAKE 1 [facility] 7[facility]5 mg 9-05 TABLET BY [facility] tablet 00:00: MOUTH ONCE DAILY WITH [facility] FOOD [facility] traMADoL 50 2020-0 Yes 50mg Take 50 mg [facility] mg tablet 9-05 by mouth [facility] 00:00: every 8 (eight) Medical hours as [facility] needed. ondansetron 2020-0 Yes TAKE 1 [facility] 4 mg tablet 9-05 TABLET BY [facility] 00:00: MOUTH EVERY 12 [facility] HOU[facility] NEEDED meloxicam 2020-0 Yes TAKE 1 [facility] 7[facility]5 mg 9-05 TABLET BY [facility] tablet 00:00: MOUTH ONCE DAILY WITH [facility] FOOD [facility] ondansetron 2020-0 Yes TAKE 1 [facility] 4 mg tablet 9-05 TABLET BY [facility] 00:00: MOUTH EVERY 12 [facility] HOU[facility] NEEDED meloxicam 2020-0 Yes TAKE 1 [facility] 7[facility]5 mg 9-05 TABLET BY [facility] tablet 00:00: MOUTH ONCE DAILY WITH [facility] FOOD [facility] ondansetron 2020-0 Yes TAKE 1 [facility] 4 mg tablet 9-05 TABLET BY [facility] 00:00: MOUTH EVERY 12 [facility] HOU[facility] NEEDED meloxicam 2020-0 Yes TAKE 1 [facility] 7[facility]5 mg 9-05 TABLET BY [facility] tablet 00:00: MOUTH ONCE DAILY WITH [facility] FOOD [facility] ondansetron 2020-0 Yes TAKE 1 [facility] 4 mg tablet 9-05 TABLET BY [facility] 00:00: MOUTH EVERY 12 [facility] HOU[facility] NEEDED meloxicam 2020-0 Yes TAKE 1 [facility] 7[facility]5 mg 9-05 TABLET BY [facility] tablet 00:00: MOUTH ONCE DAILY WITH [facility] FOOD [facility] ondansetron 2020-0 Yes TAKE 1 [facility] 4 mg tablet 9-05 TABLET BY [facility] 00:00: MOUTH EVERY 12 [facility] HOU[facility] NEEDED meloxicam 2020-0 Yes TAKE 1 [facility] 7[facility]5 mg 9-05 TABLET BY [facility] tablet 00:00: MOUTH ONCE DAILY WITH [facility] FOOD [facility] ondansetron 2020-0 Yes TAKE 1 [facility] 4 mg tablet 9-05 TABLET BY [facility] 00:00: MOUTH EVERY 12 [facility] HOU[facility] NEEDED meloxicam 2020-0 Yes TAKE 1 [facility] 7[facility]5 mg 9-05 TABLET BY [facility] tablet 00:00: MOUTH ONCE DAILY WITH [facility] FOOD [facility] ondansetron 2020-0 Yes TAKE 1 [facility] 4 mg tablet 9-05 TABLET BY [facility] 00:00: MOUTH EVERY 12 [facility] HOU[facility] NEEDED meloxicam 2020-0 Yes TAKE 1 [facility] 7[facility]5 mg 9-05 TABLET BY [facility] tablet 00:00: MOUTH DAILY WITH [facility] FOOD [facility] ondansetron 2020-0 Yes TAKE 1 [facility] 4 mg tablet 9-05 TABLET BY [facility] 00:00: MOUTH EVERY 12 [facility] HOU[facility] NEEDED meloxicam 2020-0 Yes TAKE 1 [facility] 7[facility]5 mg 9-05 TABLET BY [facility] tablet 00:00: MOUTH ONCE DAILY WITH [facility] FOOD [facility] ondansetron 2020-0 Yes TAKE 1 [facility] 4 mg tablet 9-05 TABLET BY [facility] 00:00: MOUTH EVERY 12 [facility] HOU[facility] NEEDED meloxicam 2020-0 Yes TAKE 1 [facility] 7[facility]5 mg 9-05 TABLET BY [facility] tablet 00:00: MOUTH ONCE DAILY WITH [facility] FOOD [facility] ondansetron 2020-0 Yes TAKE 1 [facility] 4 mg tablet 9-05 TABLET BY [facility] 00:00: MOUTH EVERY 12 [facility] HOU[facility] NEEDED meloxicam 2020-0 Yes TAKE 1 [facility] 7[facility]5 mg 9-05 TABLET BY [facility] tablet 00:00: MOUTH ONCE DAILY WITH [facility] FOOD [facility] ondansetron 2020-0 Yes TAKE 1 [facility] 4 mg tablet 9-05 TABLET BY [facility] 00:00: MOUTH EVERY 12 [facility] HOU[facility] NEEDED meloxicam 2020-0 Yes TAKE 1 [facility] 7[facility]5 mg 9-05 TABLET BY [facility] tablet 00:00: MOUTH ONCE DAILY WITH [facility] FOOD [facility] ondansetron 2020-0 Yes TAKE 1 [facility] 4 mg tablet 9-05 TABLET BY [facility] 00:00: MOUTH EVERY 12 [facility] HOU[facility] NEEDED meloxicam 2020-0 Yes TAKE 1 [facility] 7[facility]5 mg 9-05 TABLET BY [facility] tablet 00:00: MOUTH DAILY WITH [facility] FOOD [facility] ondansetron 2020-0 Yes TAKE 1 [facility] 4 mg tablet 9-05 TABLET BY [facility] 00:00: MOUTH EVERY 12 [facility] HOU[facility] NEEDED meloxicam 2020-0 Yes TAKE 1 [facility] 7[facility]5 mg 9-05 TABLET BY [facility] tablet 00:00: MOUTH DAILY WITH [facility] FOOD [facility] ondansetron 2020-0 Yes TAKE 1 [facility] 4 mg tablet 9-05 TABLET BY [facility] 00:00: MOUTH EVERY 12 [facility] HOU[facility] NEEDED meloxicam 2020-0 Yes TAKE 1 [facility] 7[facility]5 mg 9-05 TABLET BY [facility] tablet 00:00: MOUTH DAILY WITH [facility] FOOD [facility] ondansetron 2020-0 Yes TAKE 1 [facility] 4 mg tablet 9-05 TABLET BY [facility] 00:00: MOUTH EVERY 12 [facility] HOU[facility] NEEDED meloxicam 2020-0 Yes TAKE 1 [facility] 7[facility]5 mg 9-05 TABLET BY [facility] tablet 00:00: MOUTH DAILY WITH [facility] FOOD [facility] ondansetron 2020-0 Yes TAKE 1 [facility] 4 mg tablet 9-05 TABLET BY [facility] 00:00: MOUTH EVERY 12 [facility] HOU[facility] NEEDED meloxicam 2020-0 Yes TAKE 1 [facility] 7[facility]5 mg 9-05 TABLET BY [facility] tablet 00:00: MOUTH DAILY WITH [facility] FOOD [facility] ondansetron 2020-0 Yes TAKE 1 [facility] 4 mg tablet 9-05 TABLET BY [facility] 00:00: MOUTH EVERY 12 [facility] HOU[facility] NEEDED meloxicam 2020-0 Yes TAKE 1 [facility] 7[facility]5 mg 9-05 TABLET BY [facility] tablet 00:00: MOUTH ONCE DAILY WITH [facility] FOOD [facility] ondansetron 2020-0 Yes TAKE 1 [facility] 4 mg tablet 9-05 TABLET BY [facility] 00:00: MOUTH EVERY 12 [facility] HOU[facility] NEEDED meloxicam 2020-0 Yes TAKE 1 [facility] 7[facility]5 mg 9-05 TABLET BY [facility] tablet 00:00: MOUTH ONCE DAILY WITH [facility] FOOD [facility] ondansetron 2020-0 Yes TAKE 1 [facility] 4 mg tablet 9-05 TABLET BY [facility] 00:00: MOUTH EVERY 12 [facility] HOU[facility] NEEDED meloxicam 2020-0 Yes TAKE 1 [facility] 7[facility]5 mg 9-05 TABLET BY [facility] tablet 00:00: MOUTH DAILY WITH [facility] FOOD [facility] ondansetron 2020-0 Yes TAKE 1 [facility] 4 mg tablet 9-05 TABLET BY [facility] 00:00: MOUTH EVERY 12 [facility] HOU[facility] NEEDED meloxicam 2020-0 Yes TAKE 1 [facility] 7[facility]5 mg 9-05 TABLET BY [facility] tablet 00:00: MOUTH DAILY WITH [facility] FOOD [facility] ondansetron 2020-0 Yes TAKE 1 [facility] 4 mg tablet 9-05 TABLET BY [facility] 00:00: MOUTH EVERY 12 [facility] HOU[facility] NEEDED meloxicam 2020-0 Yes TAKE 1 [facility] 7[facility]5 mg 9-05 TABLET BY [facility] tablet 00:00: MOUTH DAILY WITH [facility] FOOD [facility] ondansetron 2020-0 Yes TAKE 1 [facility] 4 mg tablet 9-05 TABLET BY [facility] 00:00: MOUTH EVERY 12 [facility] HOURS [facility] NEEDED traMADoL 50 2020-0 2020- No 50mg Take 50 mg [facility] mg tablet 04-26- by mouth [facility] o f 00:00: 00:00 every 8 [place] 00 :00 (eight) Medical hours as Branch needed. traMADoL 50 2020-0 2020- No 50mg Take 50 mg [facility] mg tablet -12 29- by mouth [facility] f 00:00: 00:00 every 8 [place] 00 :00 (eight) Medical hours as [facility] needed. traMADoL 50 2020-0 2020- No 50mg Take 50 mg [facility] mg tablet 04-26 by mouth [facility] f 00:00: 00:00 every 8 [place] 00 :00 (eight) Medical hours as Branch needed. lisinopriL 2019-0 Yes TAKE 1 [facility] 40 mg 8-04 TABLET BY [facility] tablet 00:00: MOUTH ONCE [place] 00 DAILY FOR Medical 90 DAYS Branch citalopram 2019-0 Yes TAKE 1 [facility] 40 mg 8-04 TABLET BY [facility] tablet 00:00: MOUTH ONCE [place] 00 DAILY FOR [facility] 90 DAYS [facility] lisinopriL 2019-0 Yes TAKE 1 [facility] 40 mg 8-04 TABLET BY [facility] tablet 00:00: MOUTH ONCE [place] 00 DAILY FOR [facility] 90 DAYS [facility] citalopram 2019-0 Yes TAKE 1 [facility] 40 mg 8-04 TABLET BY [facility] tablet 00:00: MOUTH ONCE [place] 00 DAILY FOR [facility] 90 DAYS [facility] lisinopriL 2019-0 Yes TAKE 1 [facility] 40 mg 8-04 TABLET BY [facility] tablet 00:00: MOUTH ONCE [place] 00 DAILY FOR [facility] 90 DAYS [facility] citalopram 2019-0 Yes TAKE 1 [facility] 40 mg 8-04 TABLET BY [facility] tablet 00:00: MOUTH ONCE 00 DAILY FOR Medical 90 DAYS [facility] lisinopriL 2019-0 Yes TAKE 1 [facility] 40 mg 8-04 TABLET BY [facility] tablet 00:00: MOUTH ONCE [place] 00 DAILY FOR [facility] 90 DAYS [facility] citalopram 2019-0 Yes TAKE 1 [facility] 40 mg 8-04 TABLET BY [facility] tablet 00:00: MOUTH ONCE [place] 00 DAILY FOR Medical 90 DAYS [facility] lisinopriL 2019-0 Yes TAKE 1 [facility] 40 mg 8-04 TABLET BY [facility] tablet 00:00: MOUTH ONCE [place] 00 DAILY FOR [facility] 90 DAYS [facility] citalopram 2019-0 Yes TAKE 1 [facility] 40 mg 8-04 TABLET BY [facility] tablet 00:00: MOUTH ONCE [place] 00 DAILY FOR Medical 90 DAYS [facility] lisinopriL 2019-0 Yes TAKE 1 [facility] 40 mg 8-04 TABLET BY [facility] tablet 00:00: MOUTH ONCE [place] 00 DAILY FOR [facility] 90 DAYS [facility] citalopram 2019-0 Yes TAKE 1 [facility] 40 mg 8-04 TABLET BY [facility] tablet 00:00: MOUTH ONCE [place] 00 DAILY FOR Medical 90 DAYS Branch lisinopriL 2020-0 Yes TAKE 1 [facility] 40 mg 8-04 TABLET BY [facility] tablet 00:00: MOUTH ONCE [place] 00 DAILY FOR [facility] 90 DAYS [facility] citalopram 2020-0 Yes TAKE 1 [facility] 40 mg 8-04 TABLET BY [facility] tablet 00:00: MOUTH ONCE [place] 00 DAILY FOR Medical 90 DAYS Branch lisinopriL 2020-0 Yes TAKE 1 [facility] 40 mg 8-04 TABLET BY [facility] tablet 00:00: MOUTH ONCE [place] 00 DAILY FOR [facility] 90 DAYS [facility] citalopram 2019-0 Yes TAKE 1 [facility] 40 mg 8-04 TABLET BY [facility] tablet 00:00: MOUTH ONCE [place] 00 DAILY FOR Medical 90 DAYS Branch lisinopriL 2019-0 Yes TAKE 1 [facility] 40 mg 8-04 TABLET BY [facility] tablet 00:00: MOUTH ONCE [place] 00 DAILY FOR Medical 90 DAYS [facility] citalopram 2020-0 Yes TAKE 1 [facility] 40 mg 8-04 TABLET BY [facility] tablet 00:00: MOUTH ONCE [place] 00 DAILY FOR Medical 90 DAYS [facility] lisinopriL 2020-0 Yes TAKE 1 [facility] 40 mg 8-04 TABLET BY [facility] tablet 00:00: MOUTH ONCE [place] 00 DAILY FOR Medical 90 DAYS [facility] citalopram 2020-0 Yes TAKE 1 [facility] 40 mg 8-04 TABLET BY [facility] tablet 00:00: MOUTH ONCE [place] 00 DAILY FOR Medical 90 DAYS Branch lisinopriL 2020-0 Yes TAKE 1 [facility] 40 mg 8-04 TABLET BY [facility] tablet 00:00: MOUTH ONCE [place] 00 DAILY FOR Medical 90 DAYS [facility] citalopram 2020-0 Yes TAKE 1 [facility] 40 mg 8-04 TABLET BY [facility] tablet 00:00: MOUTH ONCE [place] 00 DAILY FOR Medical 90 DAYS Branch lisinopriL 2020-0 Yes TAKE 1 [facility] 40 mg 8-04 TABLET BY [facility] tablet 00:00: MOUTH ONCE [place] 00 DAILY FOR Medical 90 DAYS [facility] citalopram 2020-0 Yes TAKE 1 [facility] 40 mg 8-04 TABLET BY [facility] tablet 00:00: MOUTH ONCE [place] 00 DAILY FOR Medical 90 DAYS Branch lisinopriL 2020-0 Yes TAKE 1 [facility] 40 mg 8-04 TABLET BY [facility] tablet 00:00: MOUTH ONCE [place] 00 DAILY FOR [facility] 90 DAYS [facility] citalopram 2020-0 Yes TAKE 1 [facility] 40 mg 8-04 TABLET BY [facility] tablet 00:00: MOUTH ONCE [place] 00 DAILY FOR Medical 90 DAYS Branch lisinopriL 2020-0 Yes TAKE 1 [facility] 40 mg 8-04 TABLET BY [facility] tablet 00:00: MOUTH ONCE [place] 00 DAILY FOR Medical 90 DAYS [facility] citalopram 2020-0 Yes TAKE 1 [facility] 40 mg 8-04 TABLET BY [facility] tablet 00:00: MOUTH ONCE [place] 00 DAILY FOR Medical 90 DAYS Branch lisinopriL 2020-0 Yes TAKE 1 [facility] 40 mg 8-04 TABLET BY [facility] tablet 00:00: MOUTH ONCE [place] 00 DAILY FOR Medical 90 DAYS Branch citalopram 2020-0 Yes TAKE 1 [facility] 40 mg 8-04 TABLET BY [facility] tablet 00:00: MOUTH ONCE [place] 00 DAILY FOR Medical 90 DAYS Branch lisinopriL 2020-0 Yes TAKE 1 [facility] 40 mg 8-04 TABLET BY [facility] tablet 00:00: MOUTH ONCE [place] 00 DAILY FOR Medical 90 DAYS [facility] citalopram 2020-0 Yes TAKE 1 [facility] 40 mg 8-04 TABLET BY [facility] tablet 00:00: MOUTH ONCE 00 DAILY FOR [facility] 90 DAYS [facility] lisinopriL 2020-0 Yes TAKE 1 [facility] 40 mg 8-04 TABLET BY [facility] tablet 00:00: MOUTH ONCE [place] 00 DAILY FOR Medical 90 DAYS Branch citalopram 2020-0 Yes TAKE 1 [facility] 40 mg 8-04 TABLET BY [facility] tablet 00:00: MOUTH ONCE [place] 00 DAILY FOR Medical 90 DAYS Branch lisinopriL 2020-0 Yes TAKE 1 [facility] 40 mg 8-04 TABLET BY [facility] tablet 00:00: MOUTH ONCE [place] 00 DAILY FOR [facility] 90 DAYS [facility] citalopram 2020-0 Yes TAKE 1 [facility] 40 mg 8-04 TABLET BY [facility] tablet 00:00: MOUTH ONCE [place] 00 DAILY FOR Medical 90 DAYS Branch lisinopriL 2020-0 Yes TAKE 1 [facility] 40 mg 8-04 TABLET BY [facility] tablet 00:00: MOUTH ONCE [place] 00 DAILY FOR [facility] 90 DAYS Branch citalopram 2020-0 Yes TAKE 1 [facility] 40 mg 8-04 TABLET BY [facility] tablet 00:00: MOUTH ONCE [place] 00 DAILY FOR Medical 90 DAYS Branch lisinopriL 2020-0 Yes TAKE 1 [facility] 40 mg 8-04 TABLET BY [facility] tablet 00:00: MOUTH ONCE [place] 00 DAILY FOR Medical 90 DAYS Branch citalopram 2020-0 Yes TAKE 1 [facility] 40 mg 8-04 TABLET BY [facility] tablet 00:00: MOUTH ONCE [place] 00 DAILY FOR Medical 90 DAYS Branch lisinopriL 2020-0 Yes TAKE 1 [facility] rs 40 mg 8-04 TABLET BY [facility] tablet 00:00: MOUTH ONCE [place] 00 DAILY FOR Medical 90 DAYS Branch citalopram 2019-0 Yes TAKE 1 [facility] 40 mg 8-04 TABLET BY [facility] tablet 00:00: MOUTH ONCE [place] 00 DAILY FOR Medical 90 DAYS Branch lisinopriL 2019-0 Yes TAKE 1 [facility] 40 mg 8-04 TABLET BY [facility] tablet 00:00: MOUTH ONCE [place] 00 DAILY FOR Medical 90 DAYS Branch citalopram 2019-0 Yes TAKE 1 [facility] 40 mg 8-04 TABLET BY [facility] tablet 00:00: MOUTH ONCE [place] 00 DAILY FOR Medical 90 DAYS Branch lisinopriL 2019-0 Yes TAKE 1 [facility] 40 mg 8-04 TABLET BY [facility] tablet 00:00: MOUTH ONCE [place] 00 DAILY FOR Medical 90 DAYS Branch citalopram 2019-0 Yes TAKE 1 [facility] 40 mg 8-04 TABLET BY [facility] tablet 00:00: MOUTH ONCE [place] 00 DAILY FOR Medical 90 DAYS Branch lisinopriL 2019-0 Yes TAKE 1 [facility] 40 mg 8-04 TABLET BY [facility] tablet 00:00: MOUTH ONCE [place] 00 DAILY FOR Medical 90 DAYS Branch citalopram 2020-0 Yes TAKE 1 [facility] 40 mg 8-04 TABLET BY [facility] tablet 00:00: MOUTH ONCE [place] 00 DAILY FOR Medical 90 DAYS Branch lisinopriL 2019-0 Yes TAKE 1 [facility] 40 mg 8-04 TABLET BY [facility] tablet 00:00: MOUTH ONCE [place] 00 DAILY FOR Medical 90 DAYS Branch citalopram 2020-0 Yes TAKE 1 [facility] 40 mg 8-04 TABLET BY [facility] tablet 00:00: MOUTH ONCE [place] 00 DAILY FOR Medical 90 DAYS Branch lisinopriL 2019-0 Yes TAKE 1 [facility] 40 mg 8-04 TABLET BY [facility] tablet 00:00: MOUTH ONCE [place] 00 DAILY FOR Medical 90 DAYS Branch citalopram 2020-0 Yes TAKE 1 [facility] 40 mg 8-04 TABLET BY [facility] tablet 00:00: MOUTH ONCE [place] 00 DAILY FOR Medical 90 DAYS Branch lisinopriL 2020-0 Yes TAKE 1 [facility] 40 mg 8-04 TABLET BY [facility] tablet 00:00: MOUTH ONCE [place] 00 DAILY FOR Medical 90 DAYS Branch citalopram 2019-0 Yes TAKE 1 [facility] 40 mg 8-04 TABLET BY [facility] tablet 00:00: MOUTH ONCE [place] 00 DAILY FOR Medical 90 DAYS Branch lisinopriL 2019-0 Yes TAKE 1 [facility] 40 mg 8-04 TABLET BY [facility] tablet 00:00: MOUTH ONCE [place] 00 DAILY FOR Medical 90 DAYS Branch citalopram 2019-0 Yes TAKE 1 [facility] 40 mg 8-04 TABLET BY [facility] tablet 00:00: MOUTH ONCE [place] 00 DAILY FOR Medical 90 DAYS Branch lisinopriL 2019-0 Yes TAKE 1 [facility] 40 mg 8-04 TABLET BY [facility] tablet 00:00: MOUTH ONCE [place] 00 DAILY FOR Medical 90 DAYS Branch citalopram 2019-0 Yes TAKE 1 [facility] 40 mg 8-04 TABLET BY [facility] tablet 00:00: MOUTH ONCE [place] 00 DAILY FOR Medical 90 DAYS Branch lisinopriL 2019-0 Yes TAKE 1 [facility] 40 mg 8-04 TABLET BY [facility] tablet 00:00: MOUTH ONCE [place] 00 DAILY FOR Medical 90 DAYS Branch citalopram 2019-0 Yes TAKE 1 [facility] 40 mg 8-04 TABLET BY [facility] tablet 00:00: MOUTH ONCE [place] 00 DAILY FOR Medical 90 DAYS Branch citalopram 2019-0 Yes TAKE 1 [facility] 40 mg 8-04 TABLET BY [facility] tablet 00:00: MOUTH ONCE [place] 00 DAILY FOR Medical 90 DAYS Branch lisinopriL 2019-0 Yes TAKE 1 [facility] 40 mg 8-04 TABLET BY [facility] tablet 00:00: MOUTH ONCE [place] 00 DAILY FOR Medical 90 DAYS Branch citalopram 2019-0 Yes TAKE 1 [facility] 40 mg 8-04 TABLET BY [facility] tablet 00:00: MOUTH ONCE [place] 00 DAILY FOR Medical 90 DAYS Branch lisinopriL 2020-0 Yes TAKE 1 [facility] 40 mg 8-04 TABLET BY [facility] tablet 00:00: MOUTH ONCE [place] 00 DAILY FOR Medical 90 DAYS Branch citalopram 2019-0 Yes TAKE 1 [facility] 40 mg 8-04 TABLET BY [facility] tablet 00:00: MOUTH ONCE [place] 00 DAILY FOR Medical 90 DAYS Branch lisinopriL 2020-0 Yes TAKE 1 [facility] 40 mg 8-04 TABLET BY [facility] tablet 00:00: MOUTH ONCE [place] 00 DAILY FOR Medical 90 DAYS Branch lisinopriL 2020-0 Yes TAKE 1 [facility] 40 mg 8-04 TABLET BY [facility] tablet 00:00: MOUTH ONCE [place] 00 DAILY FOR Medical 90 DAYS Branch citalopram 2020-0 Yes TAKE 1 [facility] 40 mg 8-04 TABLET BY [facility] tablet 00:00: MOUTH ONCE [place] 00 DAILY FOR Medical 90 DAYS Branch lisinopriL 2020-0 Yes TAKE 1 [facility] 40 mg 8-04 TABLET BY [facility] tablet 00:00: MOUTH ONCE [place] 00 DAILY FOR Medical 90 DAYS Branch citalopram 2020-0 Yes TAKE 1 [facility] 40 mg 8-04 TABLET BY [facility] tablet 00:00: MOUTH ONCE [place] 00 DAILY FOR Medical 90 DAYS Branch lisinopriL 2020-0 Yes TAKE 1 [facility] 40 mg 8-04 TABLET BY [facility] tablet 00:00: MOUTH ONCE [place] 00 DAILY FOR Medical 90 DAYS Branch citalopram 2020-0 Yes TAKE 1 [facility] 40 mg 8-04 TABLET BY [facility] tablet 00:00: MOUTH ONCE [place] 00 DAILY FOR Medical 90 DAYS Branch lisinopriL 2020-0 Yes TAKE 1 [facility] 40 mg 8-04 TABLET BY [facility] tablet 00:00: MOUTH ONCE [place] 00 DAILY FOR Medical 90 DAYS Branch citalopram 2020-0 Yes TAKE 1 [facility] 40 mg 8-04 TABLET BY [facility] tablet 00:00: MOUTH ONCE [place] 00 DAILY FOR Medical 90 DAYS Branch lisinopriL 2020-0 Yes TAKE 1 [facility] 40 mg 8-04 TABLET BY [facility] tablet 00:00: MOUTH ONCE [place] 00 DAILY FOR Medical 90 DAYS Branch citalopram 2020-0 Yes TAKE 1 [facility] 40 mg 8-04 TABLET BY [facility] tablet 00:00: MOUTH ONCE [place] 00 DAILY FOR Medical 90 DAYS Branch citalopram 2020-0 Yes TAKE 1 [facility] 40 mg 8-04 TABLET BY [facility] tablet 00:00: MOUTH ONCE [place] 00 DAILY FOR Medical 90 DAYS Branch citalopram 2020-0 Yes TAKE 1 [facility] 40 mg 8-04 TABLET BY [facility] tablet 00:00: MOUTH ONCE [place] 00 DAILY FOR Medical 90 DAYS Branch citalopram 2020-0 Yes TAKE 1 [facility] 40 mg 8-04 TABLET BY [facility] tablet 00:00: MOUTH ONCE [place] 00 DAILY FOR Medical 90 DAYS Branch citalopram 2020-0 Yes TAKE 1 [facility] 40 mg 8-04 TABLET BY [facility] tablet 00:00: MOUTH ONCE [place] 00 DAILY FOR Medical 90 DAYS Branch citalopram 2019-0 Yes TAKE 1 [facility] 40 mg 8-04 TABLET BY [facility] tablet 00:00: MOUTH ONCE [place] 00 DAILY FOR Medical 90 DAYS Branch citalopram 2019-0 Yes TAKE 1 [facility] 40 mg 8-04 TABLET BY [facility] tablet 00:00: MOUTH ONCE [place] 00 DAILY FOR Medical 90 DAYS Branch lisinopriL 2019-0 Yes TAKE 1 [facility] 40 mg 8-04 TABLET BY [facility] tablet 00:00: MOUTH ONCE [place] 00 DAILY FOR Medical 90 DAYS Branch citalopram 2019-0 Yes TAKE 1 [facility] 40 mg 8-04 TABLET BY [facility] tablet 00:00: MOUTH ONCE [place] 00 DAILY FOR Medical 90 DAYS Branch lisinopriL 2019-0 Yes TAKE 1 [facility] 40 mg 8-04 TABLET BY [facility] tablet 00:00: MOUTH ONCE [place] 00 DAILY FOR Medical 90 DAYS Branch citalopram 2019-0 Yes TAKE 1 [facility] 40 mg 8-04 TABLET BY [facility] tablet 00:00: MOUTH ONCE [place] 00 DAILY FOR Medical 90 DAYS Branch lisinopriL 2020-0 Yes TAKE 1 [facility] 40 mg 8-04 TABLET BY [facility] tablet 00:00: MOUTH ONCE [place] 00 DAILY FOR Medical 90 DAYS Branch citalopram 2020-0 Yes TAKE 1 [facility] 40 mg 8-04 TABLET BY [facility] tablet 00:00: MOUTH ONCE [place] 00 DAILY FOR Medical 90 DAYS Branch lisinopriL 2020-0 Yes TAKE 1 [facility] 40 mg 8-04 TABLET BY [facility] tablet 00:00: MOUTH ONCE [place] 00 DAILY FOR Medical 90 DAYS Branch citalopram 2020-0 Yes TAKE 1 [facility] 40 mg 8-04 TABLET BY [facility] tablet 00:00: MOUTH ONCE [place] 00 DAILY FOR Medical 90 DAYS Branch lisinopriL 2020-0 Yes TAKE 1 [facility] 40 mg 8-04 TABLET BY [facility] tablet 00:00: MOUTH ONCE [place] 00 DAILY FOR Medical 90 DAYS Branch citalopram 2020-0 Yes TAKE 1 [facility] 40 mg 8-04 TABLET BY [facility] tablet 00:00: MOUTH ONCE [place] 00 DAILY FOR Medical 90 DAYS Branch lisinopriL 2020-0 Yes TAKE 1 [facility] 40 mg 8-04 TABLET BY [facility] tablet 00:00: MOUTH ONCE [place] 00 DAILY FOR Medical 90 DAYS Branch citalopram 2020-0 Yes TAKE 1 [facility] 40 mg 8-04 TABLET BY [facility] tablet 00:00: MOUTH ONCE [place] 00 DAILY FOR Medical 90 DAYS Branch lisinopriL 2020-0 Yes TAKE 1 [facility] 40 mg 8-04 TABLET BY [facility] tablet 00:00: MOUTH ONCE [place] 00 DAILY FOR Medical 90 DAYS Branch citalopram 2020-0 Yes TAKE 1 [facility] 40 mg 8-04 TABLET BY [facility] tablet 00:00: MOUTH ONCE [place] 00 DAILY FOR Medical 90 DAYS Branch lisinopriL 2020-0 Yes TAKE 1 [facility] 40 mg 8-04 TABLET BY [facility] tablet 00:00: MOUTH ONCE [place] 00 DAILY FOR Medical 90 DAYS Branch citalopram 2020-0 Yes TAKE 1 [facility] 40 mg 8-04 TABLET BY [facility] tablet 00:00: MOUTH ONCE [place] 00 DAILY FOR Medical 90 DAYS Branch lisinopriL 2020-0 Yes TAKE 1 [facility] 40 mg 8-04 TABLET BY [facility] tablet 00:00: MOUTH ONCE [place] 00 DAILY FOR Medical 90 DAYS Branch citalopram 2020-0 Yes TAKE 1 [facility] 40 mg 8-04 TABLET BY [facility] tablet 00:00: MOUTH ONCE [place] 00 DAILY FOR Medical 90 DAYS Branch lisinopriL 2020-0 Yes TAKE 1 [facility] 40 mg 8-04 TABLET BY [facility] tablet 00:00: MOUTH ONCE [place] 00 DAILY FOR Medical 90 DAYS Branch citalopram 2020-0 Yes TAKE 1 [facility] 40 mg 8-04 TABLET BY [facility] tablet 00:00: MOUTH ONCE [place] 00 DAILY FOR Medical 90 DAYS Branch lisinopriL 2020-0 Yes TAKE 1 [facility] 40 mg 8-04 TABLET BY [facility] tablet 00:00: MOUTH ONCE [place] 00 DAILY FOR Medical 90 DAYS Branch citalopram 2020-0 Yes TAKE 1 [facility] 40 mg 8-04 TABLET BY [facility] tablet 00:00: MOUTH ONCE [place] 00 DAILY FOR Medical 90 DAYS Branch lisinopriL 2020-0 Yes TAKE 1 [facility] 40 mg 8-04 TABLET BY [facility] tablet 00:00: MOUTH ONCE [place] 00 DAILY FOR Medical 90 DAYS Branch citalopram 2020-0 Yes TAKE 1 [facility] 40 mg 8-04 TABLET BY [facility] tablet 00:00: MOUTH ONCE [place] 00 DAILY FOR Medical 90 DAYS Branch lisinopriL 2020-0 Yes TAKE 1 [facility] 40 mg 8-04 TABLET BY [facility] tablet 00:00: MOUTH ONCE [place] 00 DAILY FOR Medical 90 DAYS Branch citalopram 2019-0 Yes TAKE 1 [facility] 40 mg 8-04 TABLET BY [facility] tablet 00:00: MOUTH ONCE [place] 00 DAILY FOR Medical 90 DAYS Branch lisinopriL 2019-0 Yes TAKE 1 [facility] 40 mg 8-04 TABLET BY [facility] tablet 00:00: MOUTH ONCE [place] 00 DAILY FOR Medical 90 DAYS Branch citalopram 2019-0 Yes TAKE 1 [facility] 40 mg 8-04 TABLET BY [facility] tablet 00:00: MOUTH ONCE [place] 00 DAILY FOR Medical 90 DAYS Branch lisinopriL 2019-0 Yes TAKE 1 [facility] 40 mg 8-04 TABLET BY [facility] tablet 00:00: MOUTH ONCE [place] 00 DAILY FOR Medical 90 DAYS Branch citalopram 2019-0 Yes TAKE 1 [facility] 40 mg 8-04 TABLET BY [facility] tablet 00:00: MOUTH ONCE [place] 00 DAILY FOR Medical 90 DAYS Branch lisinopriL 2019-0 Yes TAKE 1 [facility] 40 mg 8-04 TABLET BY [facility] tablet 00:00: MOUTH ONCE 00 DAILY FOR Medical 90 DAYS Branch citalopram 2020-0 Yes TAKE 1 [facility] 40 mg 8-04 TABLET BY [facility] tablet 00:00: MOUTH ONCE [place] 00 DAILY FOR Medical 90 DAYS Branch lisinopriL 2020-0 Yes TAKE 1 [facility] 40 mg 8-04 TABLET BY [facility] tablet 00:00: MOUTH ONCE [place] 00 DAILY FOR Medical 90 DAYS Branch citalopram 2020-0 Yes TAKE 1 [facility] 40 mg 8-04 TABLET BY [facility] tablet 00:00: MOUTH ONCE [place] 00 DAILY FOR Medical 90 DAYS Branch lisinopriL 2020-0 Yes TAKE 1 [facility] 40 mg 8-04 TABLET BY [facility] tablet 00:00: MOUTH ONCE [place] 00 DAILY FOR Medical 90 DAYS Branch citalopram 2020-0 Yes TAKE 1 [facility] 40 mg 8-04 TABLET BY [facility] tablet 00:00: MOUTH ONCE [place] 00 DAILY FOR Medical 90 DAYS Branch lisinopriL 2020-0 Yes TAKE 1 [facility] 40 mg 8-04 TABLET BY [facility] tablet 00:00: MOUTH ONCE [place] 00 DAILY FOR Medical 90 DAYS Branch citalopram 2020-0 Yes TAKE 1 [facility] 40 mg 8-04 TABLET BY [facility] tablet 00:00: MOUTH ONCE [place] 00 DAILY FOR Medical 90 DAYS Branch lisinopriL 2020-0 Yes TAKE 1 [facility] 40 mg 8-04 TABLET BY [facility] tablet 00:00: MOUTH ONCE [place] 00 DAILY FOR Medical 90 DAYS Branch citalopram 2020-0 Yes TAKE 1 [facility] 40 mg 8-04 TABLET BY [facility] tablet 00:00: MOUTH ONCE [place] 00 DAILY FOR Medical 90 DAYS Branch lisinopriL 2020-0 Yes TAKE 1 [facility] 40 mg 8-04 TABLET BY [facility] tablet 00:00: MOUTH ONCE [place] 00 DAILY FOR Medical 90 DAYS Branch citalopram 2020-0 Yes TAKE 1 [facility] 40 mg 8-04 TABLET BY [facility] tablet 00:00: MOUTH ONCE [place] 00 DAILY FOR Medical 90 DAYS Branch lisinopriL 2020-0 Yes TAKE 1 [facility] 40 mg 8-04 TABLET BY [facility] tablet 00:00: MOUTH ONCE [place] 00 DAILY FOR Medical 90 DAYS Branch citalopram 2020-0 Yes TAKE 1 [facility] 40 mg 8-04 TABLET BY [facility] tablet 00:00: MOUTH ONCE [place] 00 DAILY FOR Medical 90 DAYS Branch lisinopriL 2020-0 Yes TAKE 1 [facility] 40 mg 8-04 TABLET BY [facility] tablet 00:00: MOUTH ONCE [place] 00 DAILY FOR Medical 90 DAYS Branch citalopram 2020-0 Yes TAKE 1 [facility] 40 mg 8-04 TABLET BY [facility] tablet 00:00: MOUTH ONCE [place] 00 DAILY FOR Medical 90 DAYS Branch lisinopriL 2020-0 Yes TAKE 1 [facility] 40 mg 8-04 TABLET BY [facility] tablet 00:00: MOUTH ONCE [place] 00 DAILY FOR Medical 90 DAYS Branch citalopram 2020-0 Yes TAKE 1 [facility] 40 mg 8-04 TABLET BY [facility] tablet 00:00: MOUTH ONCE [place] 00 DAILY FOR Medical 90 DAYS Branch lisinopriL 2020-0 Yes TAKE 1 [facility] 40 mg 8-04 TABLET BY [facility] tablet 00:00: MOUTH ONCE [place] 00 DAILY FOR Medical 90 DAYS Branch citalopram 2019-0 Yes TAKE 1 [facility] 40 mg 8-04 TABLET BY [facility] tablet 00:00: MOUTH ONCE [place] 00 DAILY FOR Medical 90 DAYS Branch lisinopriL 2019-0 Yes TAKE 1 [facility] 40 mg 8-04 TABLET BY [facility] tablet 00:00: MOUTH ONCE [place] 00 DAILY FOR Medical 90 DAYS Branch citalopram 2019-0 Yes TAKE 1 [facility] 40 mg 8-04 TABLET BY [facility] tablet 00:00: MOUTH ONCE [place] 00 DAILY FOR Medical 90 DAYS Branch lisinopriL 2019-0 Yes TAKE 1 [facility] 40 mg 8-04 TABLET BY [facility] tablet 00:00: MOUTH ONCE [place] 00 DAILY FOR Medical 90 DAYS Branch citalopram 2019-0 Yes TAKE 1 [facility] 40 mg 8-04 TABLET BY [facility] tablet 00:00: MOUTH ONCE [place] 00 DAILY FOR Medical 90 DAYS Branch lisinopriL 2019-0 Yes TAKE 1 [facility] 40 mg 8-04 TABLET BY [facility] tablet 00:00: MOUTH ONCE [place] 00 DAILY FOR Medical 90 DAYS Branch citalopram 2019-0 Yes TAKE 1 [facility] 40 mg 8-04 TABLET BY [facility] tablet 00:00: MOUTH ONCE [place] 00 DAILY FOR Medical 90 DAYS Branch lisinopriL 2019-0 Yes TAKE 1 [facility] 40 mg 8-04 TABLET BY [facility] tablet 00:00: MOUTH ONCE [place] 00 DAILY FOR Medical 90 DAYS Branch citalopram 2019-0 Yes TAKE 1 [facility] 40 mg 8-04 TABLET BY [facility] tablet 00:00: MOUTH ONCE [place] 00 DAILY FOR Medical 90 DAYS Branch NOVOLIN N 2020-0 Yes INJECT 65 Uni vers NPH U-100 7-31 UNITS [facility] INSULIN 100 00:00: SUBCUTANEO [place] unit/mL 00 USLY ONCE Medical injection DAILY Branch DIRECTED FOR 90 DAYS NOVOLIN N 2020-0 Yes INJECT 65 [facility] vers NPH U-100 7-31 UNITS [facility] of INSULIN 100 00:00: SUBCUTANEO [place] unit/mL 00 USLY ONCE Medical injection DAILY Branch DIRECTED FOR 90 DAYS NOVOLIN N 2020-0 Yes INJECT 65 [facility] vers NPH U-100 7-31 UNITS [facility] of INSULIN 100 00:00: SUBCUTANEO [place] unit/mL 00 USLY ONCE Medical injection DAILY Branch DIRECTED FOR 90 DAYS NOVOLIN N 2020-0 Yes INJECT 65 [facility] vers NPH U-100 7-31 UNITS [facility] of INSULIN 100 00:00: SUBCUTANEO [place] unit/mL 00 USLY ONCE Medical injection DAILY Branch DIRECTED FOR 90 DAYS NOVOLIN N 2020-0 Yes INJECT 65 [facility] vers NPH U-100 7-31 UNITS [facility] of INSULIN 100 00:00: SUBCUTANEO [place] unit/mL 00 USLY ONCE Medical injection DAILY Branch DIRECTED FOR 90 DAYS NOVOLIN N 2020-0 Yes INJECT 65 [facility] vers NPH U-100 7-31 UNITS [facility] of INSULIN 100 00:00: SUBCUTANEO [place] unit/mL 00 USLY ONCE Medical injection DAILY Branch DIRECTED FOR 90 DAYS NOVOLIN N 2020-0 Yes INJECT 65 [facility] vers NPH U-100 7-31 UNITS [facility] of INSULIN 100 00:00: SUBCUTANEO [place] unit/mL 00 USLY ONCE Medical injection DAILY Branch DIRECTED FOR 90 DAYS NOVOLIN N 2020-0 Yes INJECT 65 [facility] vers NPH U-100 7-31 UNITS [facility]y of INSULIN 100 00:00: SUBCUTANEO [place] unit/mL 00 USLY ONCE Medical injection DAILY Branch DIRECTED FOR 90 DAYS NOVOLIN N 2020-0 Yes INJECT 65 [facility] vers NPH U-100 7-31 UNITS [facility] of INSULIN 100 00:00: SUBCUTANEO [place] unit/mL 00 USLY ONCE Medical injection DAILY Branch DIRECTED FOR 90 DAYS NOVOLIN N 2020-0 Yes INJECT 65 [facility] vers NPH U-100 7-31 UNITS [facility]y of INSULIN 100 00:00: SUBCUTANEO [place] unit/mL 00 USLY ONCE Medical injection DAILY Branch DIRECTED FOR 90 DAYS NOVOLIN N 2020-0 Yes INJECT 65 [facility] vers NPH U-100 7-31 UNITS [facility]y of INSULIN 100 00:00: SUBCUTANEO [place] unit/mL 00 USLY ONCE Medical injection DAILY Branch DIRECTED FOR 90 DAYS NOVOLIN N 2020-0 Yes INJECT 65 [facility] vers NPH U-100 7-31 UNITS [facility] of INSULIN 100 00:00: SUBCUTANEO [place] unit/mL 00 USLY ONCE Medical injection DAILY Branch DIRECTED FOR 90 DAYS NOVOLIN N 2020-0 Yes INJECT 65 [facility] vers NPH U-100 7-31 UNITS [facility]y of INSULIN 100 00:00: SUBCUTANEO [place] unit/mL 00 USLY ONCE Medical injection DAILY Branch DIRECTED FOR 90 DAYS NOVOLIN N 2020-0 Yes INJECT 65 [facility] vers NPH U-100 7-31 UNITS [facility]y of INSULIN 100 00:00: SUBCUTANEO [place] unit/mL 00 USLY ONCE Medical injection DAILY Branch DIRECTED FOR 90 DAYS NOVOLIN N 2020-0 Yes INJECT 65 [facility] vers NPH U-100 7-31 UNITS [facility]y of INSULIN 100 00:00: SUBCUTANEO [place] unit/mL 00 USLY ONCE Medical injection DAILY Branch DIRECTED FOR 90 DAYS NOVOLIN N 2020-0 Yes INJECT 65 [facility] vers NPH U-100 7-31 UNITS [facility]y of INSULIN 100 00:00: SUBCUTANEO [place] unit/mL 00 USLY ONCE Medical injection DAILY Branch DIRECTED FOR 90 DAYS NOVOLIN N 2020-0 Yes INJECT 65 [facility] vers NPH U-100 7-31 UNITS [facility]y of INSULIN 100 00:00: SUBCUTANEO [place] unit/mL 00 USLY ONCE Medical injection DAILY Branch DIRECTED FOR 90 DAYS NOVOLIN N 2020-0 Yes INJECT 65 [facility] vers NPH U-100 7-31 UNITS [facility]y of INSULIN 100 00:00: SUBCUTANEO [place] unit/mL 00 USLY ONCE Medical injection DAILY Branch DIRECTED FOR 90 DAYS NOVOLIN N 2020-0 Yes INJECT 65 [facility] vers NPH U-100 7-31 UNITS [facility]y of INSULIN 100 00:00: SUBCUTANEO [place] unit/mL 00 USLY ONCE Medical injection DAILY Branch DIRECTED FOR 90 DAYS NOVOLIN N 2020-0 Yes INJECT 65 [facility] vers NPH U-100 7-31 UNITS [facility]y of INSULIN 100 00:00: SUBCUTANEO [place] unit/mL 00 USLY ONCE Medical injection DAILY Branch DIRECTED FOR 90 DAYS NOVOLIN N 2020-0 Yes INJECT 65 [facility] vers NPH U-100 7-31 UNITS [facility]y of INSULIN 100 00:00: SUBCUTANEO [place] unit/mL 00 USLY ONCE Medical injection DAILY Branch DIRECTED FOR 90 DAYS NOVOLIN N 2020-0 Yes INJECT 65 [facility] vers NPH U-100 7-31 UNITS ity of INSULIN 100 00:00: SUBCUTANEO [place] unit/mL 00 USLY ONCE Medical injection DAILY Branch DIRECTED FOR 90 DAYS NOVOLIN N 2020-0 Yes INJECT 65 [facility] vers NPH U-100 7-31 UNITS [facility]y of INSULIN 100 00:00: SUBCUTANEO [place] unit/mL 00 USLY ONCE Medical injection DAILY Branch DIRECTED FOR 90 DAYS NOVOLIN N 2020-0 Yes INJECT 65 [facility] vers NPH U-100 7-31 UNITS ity of INSULIN 100 00:00: SUBCUTANEO [place] unit/mL 00 USLY ONCE Medical injection DAILY Branch DIRECTED FOR 90 DAYS NOVOLIN N 2020-0 Yes INJECT 65 [facility] vers NPH U-100 7-31 UNITS ity of INSULIN 100 00:00: SUBCUTANEO [place] unit/mL 00 USLY ONCE Medical injection DAILY Branch DIRECTED FOR 90 DAYS NOVOLIN N 2020-0 Yes INJECT 65 [facility] vers NPH U-100 7-31 UNITS ity of INSULIN 100 00:00: SUBCUTANEO [place] unit/mL 00 USLY ONCE Medical injection DAILY Branch DIRECTED FOR 90 DAYS NOVOLIN N 2020-0 Yes INJECT 65 [facility] vers NPH U-100 7-31 UNITS ity of INSULIN 100 00:00: SUBCUTANEO [place] unit/mL 00 USLY ONCE Medical injection DAILY Branch DIRECTED FOR 90 DAYS NOVOLIN N 2020-0 Yes INJECT 65 [facility] vers NPH U-100 7-31 UNITS ity of INSULIN 100 00:00: SUBCUTANEO [place] unit/mL 00 USLY ONCE Medical injection DAILY Branch DIRECTED FOR 90 DAYS NOVOLIN N 2020-0 Yes INJECT 65 [facility] vers NPH U-100 7-31 UNITS ity of INSULIN 100 00:00: SUBCUTANEO [place] unit/mL 00 USLY ONCE Medical injection DAILY Branch DIRECTED FOR 90 DAYS NOVOLIN N 2020-0 Yes INJECT 65 [facility] vers NPH U-100 7-31 UNITS ity of INSULIN 100 00:00: SUBCUTANEO [place] unit/mL 00 USLY ONCE Medical injection DAILY Branch DIRECTED FOR 90 DAYS NOVOLIN N 2020-0 Yes INJECT 65 [facility] vers NPH U-100 7-31 UNITS ity of INSULIN 100 00:00: SUBCUTANEO [place] unit/mL 00 USLY ONCE Medical injection DAILY Branch DIRECTED FOR 90 DAYS NOVOLIN N 2020-0 Yes INJECT 65 [facility] vers NPH U-100 7-31 UNITS ity of INSULIN 100 00:00: SUBCUTANEO [place] unit/mL 00 USLY ONCE Medical injection DAILY Branch DIRECTED FOR 90 DAYS NOVOLIN N 2020-0 Yes INJECT 65 [facility] vers NPH U-100 7-31 UNITS ity of INSULIN 100 00:00: SUBCUTANEO [place] unit/mL 00 USLY ONCE Medical injection DAILY Branch DIRECTED FOR 90 DAYS NOVOLIN N 2020-0 Yes INJECT 65 [facility] vers NPH U-100 7-31 UNITS ity of INSULIN 100 00:00: SUBCUTANEO [place] unit/mL 00 USLY ONCE Medical injection DAILY Branch DIRECTED FOR 90 DAYS NOVOLIN N 20200 Yes INJECT 65 [facility] vers NPH U-100 7-31 UNITS ity of INSULIN 100 00:00: SUBCUTANEO [place] unit/mL 00 USLY ONCE Medical injection DAILY Branch DIRECTED FOR 90 DAYS NOVOLIN N 2020-0 Yes INJECT 65 [facility] vers NPH U-100 7-31 UNITS ity of INSULIN 100 00:00: SUBCUTANEO [place] unit/mL 00 USLY ONCE Medical injection DAILY Branch DIRECTED FOR 90 DAYS NOVOLIN N 0 Yes INJECT 65 [facility] vers NPH U-100 7-31 UNITS ity of INSULIN 100 00:00: SUBCUTANEO [place] unit/mL 00 USLY ONCE Medical injection DAILY Branch DIRECTED FOR 90 DAYS NOVOLIN N 0 Yes INJECT 65 [facility] vers NPH U-100 7-31 UNITS ity of INSULIN 100 00:00: SUBCUTANEO [place] unit/mL 00 USLY ONCE Medical injection DAILY Branch DIRECTED FOR 90 DAYS NOVOLIN N 0 Yes INJECT 65 [facility] vers NPH U-100 7-31 UNITS ity of INSULIN 100 00:00: SUBCUTANEO [place] unit/mL 00 USLY ONCE Medical injection DAILY Branch DIRECTED FOR 90 DAYS NOVOLIN N 0 Yes INJECT 65 [facility] vers NPH U-100 7-31 UNITS ity of INSULIN 100 00:00: SUBCUTANEO [place] unit/mL 00 USLY ONCE Medical injection DAILY Branch DIRECTED FOR 90 DAYS NOVOLIN N 2020-0 Yes INJECT 65 [facility] vers NPH U-100 7-31 UNITS ity of INSULIN 100 00:00: SUBCUTANEO [place] unit/mL 00 USLY ONCE Medical injection DAILY Branch DIRECTED FOR 90 DAYS NOVOLIN N 2020-0 Yes INJECT 65 [facility] vers NPH U-100 7-31 UNITS ity of INSULIN 100 00:00: SUBCUTANEO [place] unit/mL 00 USLY ONCE Medical injection DAILY Branch DIRECTED FOR 90 DAYS NOVOLIN N 2020-0 Yes INJECT 65 [facility] vers NPH U-100 7-31 UNITS ity of INSULIN 100 00:00: SUBCUTANEO [place] unit/mL 00 USLY ONCE Medical injection DAILY Branch DIRECTED FOR 90 DAYS NOVOLIN N 2020-0 Yes INJECT 65 [facility] vers NPH U-100 7-31 UNITS ity of INSULIN 100 00:00: SUBCUTANEO [place] unit/mL 00 USLY ONCE Medical injection DAILY Branch DIRECTED FOR 90 DAYS NOVOLIN N 2020-0 Yes INJECT 65 [facility] vers NPH U-100 7-31 UNITS ity of INSULIN 100 00:00: SUBCUTANEO [place] unit/mL 00 USLY ONCE Medical injection DAILY Branch DIRECTED FOR 90 DAYS NOVOLIN N 2020-0 Yes INJECT 65 [facility] vers NPH U-100 7-31 UNITS ity of INSULIN 100 00:00: SUBCUTANEO [place] unit/mL 00 USLY ONCE Medical injection DAILY Branch DIRECTED FOR 90 DAYS NOVOLIN N 2020-0 Yes INJECT 65 [facility] vers NPH U-100 7-31 UNITS ity of INSULIN 100 00:00: SUBCUTANEO [place] unit/mL 00 USLY ONCE Medical injection DAILY Branch DIRECTED FOR 90 DAYS NOVOLIN N 2020-0 Yes INJECT 65 [facility] vers NPH U-100 7-31 UNITS ity of INSULIN 100 00:00: SUBCUTANEO [place] unit/mL 00 USLY ONCE Medical injection DAILY Branch DIRECTED FOR 90 DAYS NOVOLIN N 2020-0 Yes INJECT 65 [facility] vers NPH U-100 7-31 UNITS ity of INSULIN 100 00:00: SUBCUTANEO [place] unit/mL 00 USLY ONCE Medical injection DAILY Branch DIRECTED FOR 90 DAYS NOVOLIN N 2020-0 Yes INJECT 65 [facility] vers NPH U-100 7-31 UNITS ity of INSULIN 100 00:00: SUBCUTANEO [place] unit/mL 00 USLY ONCE Medical injection DAILY Branch DIRECTED FOR 90 DAYS NOVOLIN N 2020-0 Yes INJECT 65 [facility] vers NPH U-100 7-31 UNITS ity of INSULIN 100 00:00: SUBCUTANEO [place] unit/mL 00 USLY ONCE Medical injection DAILY Branch DIRECTED FOR 90 DAYS NOVOLIN N 2020-0 Yes INJECT 65 [facility] vers NPH U-100 7-31 UNITS ity of INSULIN 100 00:00: SUBCUTANEO [place] unit/mL 00 USLY ONCE Medical injection DAILY Branch DIRECTED FOR 90 DAYS NOVOLIN N 2020-0 Yes INJECT 65 [facility] vers NPH U-100 7-31 UNITS ity of INSULIN 100 00:00: SUBCUTANEO [place] unit/mL 00 USLY ONCE Medical injection DAILY Branch DIRECTED FOR 90 DAYS NOVOLIN N 2020-0 Yes INJECT 65 [facility] vers NPH U-100 7-31 UNITS ity of INSULIN 100 00:00: SUBCUTANEO [place] unit/mL 00 USLY ONCE Medical injection DAILY Branch DIRECTED FOR 90 DAYS NOVOLIN N 2020-0 Yes INJECT 65 [facility] vers NPH U-100 7-31 UNITS ity of INSULIN 100 00:00: SUBCUTANEO [place] unit/mL 00 USLY ONCE Medical injection DAILY Branch DIRECTED FOR 90 DAYS NOVOLIN N 2020-0 Yes INJECT 65 [facility] vers NPH U-100 7-31 UNITS ity of INSULIN 100 00:00: SUBCUTANEO [place] unit/mL 00 USLY ONCE Medical injection DAILY Branch DIRECTED FOR 90 DAYS NOVOLIN N 2020-0 Yes INJECT 65 [facility] vers NPH U-100 7-31 UNITS ity of INSULIN 100 00:00: SUBCUTANEO [place] unit/mL 00 USLY ONCE Medical injection DAILY Branch DIRECTED FOR 90 DAYS NOVOLIN N 2020-0 Yes INJECT 65 [facility] vers NPH U-100 7-31 UNITS ity of INSULIN 100 00:00: SUBCUTANEO [place] unit/mL 00 USLY ONCE Medical injection DAILY Branch DIRECTED FOR 90 DAYS NOVOLIN N 2020-0 Yes INJECT 65 [facility] vers NPH U-100 7-31 UNITS ity of INSULIN 100 00:00: SUBCUTANEO [place] unit/mL 00 USLY ONCE Medical injection DAILY Branch DIRECTED FOR 90 DAYS NOVOLIN N 2020-0 Yes INJECT 65 [facility] vers NPH U-100 7-31 UNITS ity of INSULIN 100 00:00: SUBCUTANEO [place] unit/mL 00 USLY ONCE Medical injection DAILY Branch DIRECTED FOR 90 DAYS NOVOLIN N 2020-0 Yes INJECT 65 [facility] vers NPH U-100 7-31 UNITS ity of INSULIN 100 00:00: SUBCUTANEO [place] unit/mL 00 USLY ONCE Medical injection DAILY Branch DIRECTED FOR 90 DAYS NOVOLIN N 2020-0 Yes INJECT 65 [facility] vers NPH U-100 7-31 UNITS ity of INSULIN 100 00:00: SUBCUTANEO [place] unit/mL 00 USLY ONCE Medical injection DAILY Branch DIRECTED FOR 90 DAYS NOVOLIN N 2020-0 Yes INJECT 65 [facility] vers NPH U-100 7-31 UNITS ity of INSULIN 100 00:00: SUBCUTANEO [place] unit/mL 00 USLY ONCE Medical injection DAILY Branch DIRECTED FOR 90 DAYS NOVOLIN N 2020-0 Yes INJECT 65 [facility] vers NPH U-100 7-31 UNITS ity of INSULIN 100 00:00: SUBCUTANEO [place] unit/mL 00 USLY ONCE Medical injection DAILY Branch DIRECTED FOR 90 DAYS NOVOLIN N 2020-0 Yes INJECT 65 [facility] vers NPH U-100 7-31 UNITS ity of INSULIN 100 00:00: SUBCUTANEO [place] unit/mL 00 USLY ONCE Medical injection DAILY Branch DIRECTED FOR 90 DAYS NOVOLIN N 2020-0 Yes INJECT 65 [facility] vers NPH U-100 7-31 UNITS ity of INSULIN 100 00:00: SUBCUTANEO [place] unit/mL 00 USLY ONCE Medical injection DAILY Branch DIRECTED FOR 90 DAYS NOVOLIN N 2020-0 Yes INJECT 65 [facility] vers NPH U-100 7-31 UNITS ity of INSULIN 100 00:00: SUBCUTANEO [place] unit/mL 00 USLY ONCE Medical injection DAILY Branch DIRECTED FOR 90 DAYS furosemide 0 Yes TAKE 1 [facility] rs 20 mg 7-24 TABLET BY ity of tablet 00:00: MOUTH ONCE 00 DAILY FOR Medical 90 DAYS Branch furosemide 0 Yes TAKE 1 [facility] 20 mg 7-24 TABLET BY ity of tablet 00:00: MOUTH ONCE 00 DAILY FOR Medical 90 DAYS Branch furosemide 0 Yes TAKE 1 [facility] 20 mg 7-24 TABLET BY ity of tablet 00:00: MOUTH ONCE DAILY FOR Medical 90 DAYS Branch furosemide 0 Yes TAKE 1 [facility] 20 mg 7-24 TABLET BY ity of tablet 00:00: MOUTH ONCE DAILY FOR Medical 90 DAYS Branch furosemide 2019-0 Yes TAKE 1 [facility] 20 mg 7-24 TABLET BY ity of tablet 00:00: MOUTH ONCE DAILY FOR Medical 90 DAYS Branch furosemide 2020-0 Yes TAKE 1 [facility] 20 mg 7-24 TABLET BY ity of tablet 00:00: MOUTH ONCE DAILY FOR Medical 90 DAYS Branch furosemide 2019-0 Yes TAKE 1 [facility] 20 mg 7-24 TABLET BY ity of tablet 00:00: MOUTH ONCE DAILY FOR Medical 90 DAYS Branch furosemide 2020-0 Yes TAKE 1 [facility] 20 mg 7-24 TABLET BY ity of tablet 00:00: MOUTH ONCE 00 DAILY FOR Medical 90 DAYS Branch furosemide 2019-0 Yes TAKE 1 [facility] 20 mg 7-24 TABLET BY ity of tablet 00:00: MOUTH ONCE 00 DAILY FOR Medical 90 DAYS Branch furosemide 2019-0 Yes TAKE 1 [facility] 20 mg 7-24 TABLET BY ity of tablet 00:00: MOUTH ONCE [place] 00 DAILY FOR Medical 90 DAYS Branch furosemide 2020-0 Yes TAKE 1 [facility] 20 mg 7-24 TABLET BY ity of tablet 00:00: MOUTH ONCE 00 DAILY FOR Medical 90 DAYS Branch furosemide 2020-0 Yes TAKE 1 [facility] 20 mg 7-24 TABLET BY ity of tablet 00:00: MOUTH ONCE 00 DAILY FOR Medical 90 DAYS Branch furosemide 2020-0 Yes TAKE 1 [facility] 20 mg 7-24 TABLET BY ity of tablet 00:00: MOUTH ONCE 00 DAILY FOR Medical 90 DAYS Branch furosemide 2020-0 Yes TAKE 1 [facility] 20 mg 7-24 TABLET BY ity of tablet 00:00: MOUTH ONCE 00 DAILY FOR Medical 90 DAYS Branch furosemide 2020-0 Yes TAKE 1 [facility] 20 mg 7-24 TABLET BY ity of tablet 00:00: MOUTH ONCE 00 DAILY FOR Medical 90 DAYS Branch furosemide 2020-0 Yes TAKE 1 [facility] 20 mg 7-24 TABLET BY ity of tablet 00:00: MOUTH ONCE 00 DAILY FOR Medical 90 DAYS Branch furosemide 2020-0 Yes TAKE 1 [facility] 20 mg 7-24 TABLET BY ity of tablet 00:00: MOUTH ONCE 00 DAILY FOR Medical 90 DAYS Branch furosemide 2020-0 Yes TAKE 1 [facility] 20 mg 7-24 TABLET BY ity of tablet 00:00: MOUTH ONCE 00 DAILY FOR Medical 90 DAYS Branch furosemide 2020-0 Yes TAKE 1 [facility] 20 mg 7-24 TABLET BY ity of tablet 00:00: MOUTH ONCE 00 DAILY FOR Medical 90 DAYS Branch furosemide 2020-0 Yes TAKE 1 [facility] 20 mg 7-24 TABLET BY ity of tablet 00:00: MOUTH ONCE 00 DAILY FOR Medical 90 DAYS Branch furosemide 2020-0 Yes TAKE 1 [facility] 20 mg 7-24 TABLET BY ity of tablet 00:00: MOUTH ONCE 00 DAILY FOR Medical 90 DAYS Branch furosemide 2020-0 Yes TAKE 1 [facility] 20 mg 7-24 TABLET BY ity of tablet 00:00: MOUTH ONCE 00 DAILY FOR Medical 90 DAYS Branch furosemide 2020-0 Yes TAKE 1 [facility] 20 mg 7-24 TABLET BY ity of tablet 00:00: MOUTH ONCE 00 DAILY FOR Medical 90 DAYS Branch furosemide 2020-0 Yes TAKE 1 [facility] 20 mg 7-24 TABLET BY ity of tablet 00:00: MOUTH ONCE 00 DAILY FOR Medical 90 DAYS Branch furosemide 2020-0 Yes TAKE 1 [facility] 20 mg 7-24 TABLET BY ity of tablet 00:00: MOUTH ONCE 00 DAILY FOR Medical 90 DAYS Branch furosemide 2019-0 Yes TAKE 1 [facility] 20 mg 7-24 TABLET BY ity of tablet 00:00: MOUTH ONCE [place] 00 DAILY FOR Medical 90 DAYS Branch furosemide 2019-0 Yes TAKE 1 [facility] 20 mg 7-24 TABLET BY ity of tablet 00:00: MOUTH ONCE 00 DAILY FOR Medical 90 DAYS Branch furosemide 2019-0 Yes TAKE 1 [facility] 20 mg 7-24 TABLET BY ity of tablet 00:00: MOUTH ONCE 00 DAILY FOR Medical 90 DAYS Branch furosemide 0 Yes TAKE 1 [facility] 20 mg 7-24 TABLET BY ity of tablet 00:00: MOUTH ONCE 00 DAILY FOR Medical 90 DAYS Branch furosemide 0 Yes TAKE 1 [facility] 20 mg 7-24 TABLET BY ity of tablet 00:00: MOUTH ONCE 00 DAILY FOR Medical 90 DAYS Branch furosemide 0 Yes TAKE 1 [facility] 20 mg 7-24 TABLET BY ity of tablet 00:00: MOUTH ONCE 00 DAILY FOR Medical 90 DAYS Branch furosemide 0 Yes TAKE 1 [facility] 20 mg 7-24 TABLET BY ity of tablet 00:00: MOUTH ONCE 00 DAILY FOR Medical 90 DAYS Branch furosemide 2019-0 Yes TAKE 1 [facility] 20 mg 7-24 TABLET BY ity of tablet 00:00: MOUTH ONCE 00 DAILY FOR Medical 90 DAYS Branch furosemide 2019-0 Yes TAKE 1 [facility] 20 mg 7-24 TABLET BY ity of tablet 00:00: MOUTH ONCE 00 DAILY FOR Medical 90 DAYS Branch furosemide 2019-0 Yes TAKE 1 [facility] 20 mg 7-24 TABLET BY ity of tablet 00:00: MOUTH ONCE 00 DAILY FOR Medical 90 DAYS Branch furosemide 2019-0 Yes TAKE 1 [facility] 20 mg 7-24 TABLET BY ity of tablet 00:00: MOUTH ONCE 00 DAILY FOR Medical 90 DAYS Branch furosemide 2019-0 Yes TAKE 1 [facility] 20 mg 7-24 TABLET BY ity of tablet 00:00: MOUTH ONCE 00 DAILY FOR Medical 90 DAYS Branch furosemide 2020-0 Yes TAKE 1 [facility] 20 mg 7-24 TABLET BY ity of tablet 00:00: MOUTH ONCE 00 DAILY FOR Medical 90 DAYS Branch furosemide 2019-0 Yes TAKE 1 [facility] 20 mg 7-24 TABLET BY ity of tablet 00:00: MOUTH ONCE 00 DAILY FOR Medical 90 DAYS Branch furosemide 2020-0 Yes TAKE 1 [facility] 20 mg 7-24 TABLET BY ity of tablet 00:00: MOUTH ONCE 00 DAILY FOR Medical 90 DAYS Branch furosemide 2020-0 Yes TAKE 1 [facility] 20 mg 7-24 TABLET BY ity of tablet 00:00: MOUTH ONCE 00 DAILY FOR Medical 90 DAYS Branch furosemide 2019-0 Yes TAKE 1 [facility] 20 mg 7-24 TABLET BY ity of tablet 00:00: MOUTH ONCE 00 DAILY FOR Medical 90 DAYS Branch furosemide 2019-0 Yes TAKE 1 [facility] 20 mg 7-24 TABLET BY ity of tablet 00:00: MOUTH ONCE 00 DAILY FOR Medical 90 DAYS Branch furosemide 2019-0 Yes TAKE 1 [facility] 20 mg 7-24 TABLET BY ity of tablet 00:00: MOUTH ONCE DAILY FOR Medical 90 DAYS Branch furosemide 2019-0 Yes TAKE 1 [facility] 20 mg 7-24 TABLET BY ity of tablet 00:00: MOUTH ONCE 00 DAILY FOR Medical 90 DAYS Branch furosemide 2019-0 Yes TAKE 1 [facility] 20 mg 7-24 TABLET BY ity of tablet 00:00: MOUTH ONCE 00 DAILY FOR Medical 90 DAYS Branch furosemide 2020-0 Yes TAKE 1 [facility] rs 20 mg 7-24 TABLET BY ity of tablet 00:00: MOUTH ONCE DAILY FOR Medical 90 DAYS Branch furosemide 2020-0 Yes TAKE 1 [facility] 20 mg 7-24 TABLET BY ity of tablet 00:00: MOUTH ONCE 00 DAILY FOR Medical 90 DAYS Branch furosemide 2020-0 Yes TAKE 1 [facility] 20 mg 7-24 TABLET BY ity of tablet 00:00: MOUTH ONCE 00 DAILY FOR Medical 90 DAYS Branch furosemide 2020-0 Yes TAKE 1 [facility] 20 mg 7-24 TABLET BY ity of tablet 00:00: MOUTH ONCE 00 DAILY FOR Medical 90 DAYS Branch furosemide 2020-0 Yes TAKE 1 [facility] 20 mg 7-24 TABLET BY ity of tablet 00:00: MOUTH ONCE 00 DAILY FOR Medical 90 DAYS Branch furosemide 2020-0 Yes TAKE 1 [facility] 20 mg 7-24 TABLET BY ity of tablet 00:00: MOUTH ONCE 00 DAILY FOR Medical 90 DAYS Branch furosemide 2020-0 Yes TAKE 1 [facility] 20 mg 7-24 TABLET BY ity of tablet 00:00: MOUTH ONCE 00 DAILY FOR Medical 90 DAYS Branch furosemide 2020-0 Yes TAKE 1 [facility] 20 mg 7-24 TABLET BY ity of tablet 00:00: MOUTH ONCE 00 DAILY FOR Medical 90 DAYS Branch furosemide 2020-0 Yes TAKE 1 [facility] 20 mg 7-24 TABLET BY ity of tablet 00:00: MOUTH ONCE 00 DAILY FOR Medical 90 DAYS Branch furosemide 2020-0 Yes TAKE 1 [facility] 20 mg 7-24 TABLET BY ity of tablet 00:00: MOUTH ONCE 00 DAILY FOR Medical 90 DAYS Branch furosemide 2020-0 Yes TAKE 1 [facility] 20 mg 7-24 TABLET BY ity of tablet 00:00: MOUTH ONCE 00 DAILY FOR Medical 90 DAYS Branch furosemide 2019-0 Yes TAKE 1 [facility] 20 mg 7-24 TABLET BY ity of tablet 00:00: MOUTH ONCE 00 DAILY FOR Medical 90 DAYS Branch furosemide 2020-0 Yes TAKE 1 [facility] 20 mg 7-24 TABLET BY ity of tablet 00:00: MOUTH ONCE 00 DAILY FOR Medical 90 DAYS Branch furosemide 2020-0 Yes TAKE 1 [facility] 20 mg 7-24 TABLET BY ity of tablet 00:00: MOUTH ONCE 00 DAILY FOR Medical 90 DAYS Branch furosemide 2020-0 Yes TAKE 1 [facility] 20 mg 7-24 TABLET BY ity of tablet 00:00: MOUTH ONCE 00 DAILY FOR Medical 90 DAYS Branch furosemide 2020-0 Yes TAKE 1 [facility] 20 mg 7-24 TABLET BY ity of tablet 00:00: MOUTH ONCE DAILY FOR Medical 90 DAYS Branch furosemide 2020-0 Yes TAKE 1 [facility] 20 mg 7-24 TABLET BY ity of tablet 00:00: MOUTH ONCE 00 DAILY FOR Medical 90 DAYS Branch furosemide 2020-0 Yes TAKE 1 [facility] 20 mg 7-24 TABLET BY ity of tablet 00:00: MOUTH ONCE 00 DAILY FOR Medical 90 DAYS Branch furosemide 2020-0 Yes TAKE 1 [facility] 20 mg 7-24 TABLET BY ity of tablet 00:00: MOUTH ONCE 00 DAILY FOR Medical 90 DAYS Branch furosemide 2020-0 Yes TAKE 1 [facility] 20 mg 7-24 TABLET BY ity of tablet 00:00: MOUTH ONCE 00 DAILY FOR Medical 90 DAYS Branch furosemide 2020-0 Yes TAKE 1 [facility] rs 20 mg 7-24 TABLET BY ity of tablet 00:00: MOUTH ONCE [place] 00 DAILY FOR Medical 90 DAYS Branch atorvastati 2020-0 Yes TAKE 1 Univ ers n 40 mg 7-13 TABLET BY ity of tablet 00:00: MOUTH ONCE [place] 00 DAILY IN Medical THE Branch EVENING FOR 90 DAYS atorvastati 2020-0 Yes TAKE 1 [facility] ers n 40 mg 7-13 TABLET BY ity of tablet 00:00: MOUTH ONCE [place] 00 DAILY IN [facility] Branch EVENING FOR 90 DAYS atorvastati 2020-0 Yes TAKE 1 Univ ers n 40 mg 7-13 TABLET BY ity of tablet 00:00: MOUTH ONCE [place] 00 DAILY IN [facility] EVENING FOR 90 DAYS atorvastati 2020-0 Yes TAKE 1 Univ ers n 40 mg 7-13 TABLET BY ity of tablet 00:00: MOUTH ONCE [place] 00 DAILY IN [facility] EVENING FOR 90 DAYS atorvastati 2020-0 Yes TAKE 1 [facility] ers n 40 mg 7-13 TABLET BY ity of tablet 00:00: MOUTH ONCE [place] 00 DAILY IN [facility] EVENING FOR 90 DAYS atorvastati 2020-0 Yes TAKE 1 [facility] ers n 40 mg 7-13 TABLET BY ity of tablet 00:00: MOUTH ONCE [place] 00 DAILY IN [facility] EVENING FOR 90 DAYS atorvastati 2020-0 Yes TAKE 1 [facility] ers n 40 mg 7-13 TABLET BY ity of tablet 00:00: MOUTH ONCE [place] 00 DAILY IN [facility] EVENING FOR 90 DAYS atorvastati 2020-0 Yes TAKE 1 [facility] ers n 40 mg 7-13 TABLET BY ity of tablet 00:00: MOUTH ONCE [place] 00 DAILY IN [facility] EVENING FOR 90 DAYS atorvastati 2020-0 Yes TAKE 1 [facility] ers n 40 mg 7-13 TABLET BY ity of tablet 00:00: MOUTH ONCE [place] 00 DAILY IN [facility] EVENING FOR 90 DAYS atorvastati 2020-0 Yes TAKE 1 [facility] ers n 40 mg 7-13 TABLET BY ity of tablet 00:00: MOUTH ONCE [place] 00 DAILY IN [facility] EVENING FOR 90 DAYS atorvastati 2020-0 Yes TAKE 1 [facility] ers n 40 mg 7-13 TABLET BY ity of tablet 00:00: MOUTH ONCE [place] 00 DAILY IN [facility] EVENING FOR 90 DAYS atorvastati 2020-0 Yes TAKE 1 [facility] ers n 40 mg 7-13 TABLET BY ity of tablet 00:00: MOUTH ONCE [place] 00 DAILY IN [facility] EVENING FOR 90 DAYS atorvastati 2020-0 Yes TAKE 1 [facility] ers n 40 mg 7-13 TABLET BY ity of tablet 00:00: MOUTH ONCE [place] 00 DAILY IN [facility] EVENING FOR 90 DAYS atorvastati 2020-0 Yes TAKE 1 [facility] ers n 40 mg 7-13 TABLET BY ity of tablet 00:00: MOUTH ONCE [place] 00 DAILY IN [facility] EVENING FOR 90 DAYS atorvastati 2020-0 Yes TAKE 1 [facility] ers n 40 mg 7-13 TABLET BY ity of tablet 00:00: MOUTH ONCE [place] 00 DAILY IN [facility] EVENING FOR 90 DAYS atorvastati 2020-0 Yes TAKE 1 [facility] ers n 40 mg 7-13 TABLET BY ity of tablet 00:00: MOUTH ONCE [place] 00 DAILY IN [facility] EVENING FOR 90 DAYS atorvastati 2020-0 Yes TAKE 1 [facility] ers n 40 mg 7-13 TABLET BY ity of tablet 00:00: MOUTH ONCE [place] 00 DAILY IN [facility] EVENING FOR 90 DAYS atorvastati 2020-0 Yes TAKE 1 [facility] ers n 40 mg 7-13 TABLET BY ity of tablet 00:00: MOUTH ONCE [place] 00 DAILY IN [facility] EVENING FOR 90 DAYS atorvastati 2020-0 Yes TAKE 1 [facility] ers n 40 mg 7-13 TABLET BY ity of tablet 00:00: MOUTH ONCE [place] 00 DAILY IN [facility] EVENING FOR 90 DAYS atorvastati 2020-0 Yes TAKE 1 [facility] ers n 40 mg 7-13 TABLET BY ity of tablet 00:00: MOUTH ONCE [place] 00 DAILY IN [facility] EVENING FOR 90 DAYS atorvastati 2020-0 Yes TAKE 1 [facility] ers n 40 mg 7-13 TABLET BY ity of tablet 00:00: MOUTH ONCE [place] 00 DAILY IN [facility] EVENING FOR 90 DAYS atorvastati 2020-0 Yes TAKE 1 [facility] ers n 40 mg 7-13 TABLET BY ity of tablet 00:00: MOUTH ONCE [place] 00 DAILY IN [facility] EVENING FOR 90 DAYS atorvastati 2020-0 Yes TAKE 1 [facility] ers n 40 mg 7-13 TABLET BY ity of tablet 00:00: MOUTH ONCE [place] 00 DAILY IN [facility] EVENING FOR 90 DAYS atorvastati 2020-0 Yes TAKE 1 [facility] ers n 40 mg 7-13 TABLET BY ity of tablet 00:00: MOUTH ONCE [place] 00 DAILY IN [facility] EVENING FOR 90 DAYS atorvastati 2020-0 Yes TAKE 1 [facility] ers n 40 mg 7-13 TABLET BY ity of tablet 00:00: MOUTH ONCE [place] 00 DAILY IN [facility] EVENING FOR 90 DAYS atorvastati 2020-0 Yes TAKE 1 [facility] ers n 40 mg 7-13 TABLET BY ity of tablet 00:00: MOUTH ONCE [place] 00 DAILY IN [facility] EVENING FOR 90 DAYS atorvastati 2020-0 Yes TAKE 1 [facility] ers n 40 mg 7-13 TABLET BY ity of tablet 00:00: MOUTH ONCE [place] 00 DAILY IN [facility] EVENING FOR 90 DAYS atorvastati 2020-0 Yes TAKE 1 [facility] ers n 40 mg 7-13 TABLET BY ity of tablet 00:00: MOUTH ONCE [place] 00 DAILY IN [facility] EVENING FOR 90 DAYS atorvastati 2020-0 Yes TAKE 1 [facility] ers n 40 mg 7-13 TABLET BY ity of tablet 00:00: MOUTH ONCE [place] 00 DAILY IN [facility] EVENING FOR 90 DAYS atorvastati 2020-0 Yes TAKE 1 [facility] ers n 40 mg 7-13 TABLET BY ity of tablet 00:00: MOUTH ONCE [place] 00 DAILY IN [facility] EVENING FOR 90 DAYS atorvastati 2020-0 Yes TAKE 1 [facility] ers n 40 mg 7-13 TABLET BY ity of tablet 00:00: MOUTH ONCE [place] 00 DAILY IN [facility] EVENING FOR 90 DAYS atorvastati 2020-0 Yes TAKE 1 [facility] ers n 40 mg 7-13 TABLET BY ity of tablet 00:00: MOUTH ONCE [place] 00 DAILY IN [facility] EVENING FOR 90 DAYS atorvastati 2020-0 Yes TAKE 1 [facility] ers n 40 mg 7-13 TABLET BY ity of tablet 00:00: MOUTH ONCE [place] 00 DAILY IN [facility] EVENING FOR 90 DAYS atorvastati 2020-0 Yes TAKE 1 [facility] ers n 40 mg 7-13 TABLET BY ity of tablet 00:00: MOUTH ONCE [place] 00 DAILY IN [facility] EVENING FOR 90 DAYS atorvastati 2020-0 Yes TAKE 1 [facility] ers n 40 mg 7-13 TABLET BY ity of tablet 00:00: MOUTH ONCE [place] 00 DAILY IN [facility] EVENING FOR 90 DAYS atorvastati 2020-0 Yes TAKE 1 [facility] ers n 40 mg 7-13 TABLET BY ity of tablet 00:00: MOUTH ONCE [place] 00 DAILY IN [facility] EVENING FOR 90 DAYS atorvastati 2020-0 Yes TAKE 1 [facility] ers n 40 mg 7-13 TABLET BY ity of tablet 00:00: MOUTH ONCE [place] 00 DAILY IN [facility] EVENING FOR 90 DAYS atorvastati 2020-0 Yes TAKE 1 [facility] ers n 40 mg 7-13 TABLET BY ity of tablet 00:00: MOUTH ONCE [place] 00 DAILY IN [facility] EVENING FOR 90 DAYS atorvastati 2020-0 Yes TAKE 1 [facility] ers n 40 mg 7-13 TABLET BY ity of tablet 00:00: MOUTH ONCE [place] 00 DAILY IN [facility] EVENING FOR 90 DAYS atorvastati 2020-0 Yes TAKE 1 [facility] ers n 40 mg 7-13 TABLET BY ity of tablet 00:00: MOUTH ONCE [place] 00 DAILY IN [facility] EVENING FOR 90 DAYS atorvastati 2020-0 Yes TAKE 1 [facility] ers n 40 mg 7-13 TABLET BY ity of tablet 00:00: MOUTH ONCE [place] 00 DAILY IN [facility] EVENING FOR 90 DAYS atorvastati 2020-0 Yes TAKE 1 [facility] ers n 40 mg 7-13 TABLET BY ity of tablet 00:00: MOUTH ONCE [place] 00 DAILY IN [facility] EVENING FOR 90 DAYS atorvastati 2020-0 Yes TAKE 1 [facility] ers n 40 mg 7-13 TABLET BY ity of tablet 00:00: MOUTH ONCE [place] 00 DAILY IN [facility] EVENING FOR 90 DAYS atorvastati 2020-0 Yes TAKE 1 [facility] ers n 40 mg 7-13 TABLET BY ity of tablet 00:00: MOUTH ONCE [place] 00 DAILY IN [facility] EVENING FOR 90 DAYS atorvastati 2020-0 Yes TAKE 1 [facility] ers n 40 mg 7-13 TABLET BY ity of tablet 00:00: MOUTH ONCE [place] 00 DAILY IN [facility] EVENING FOR 90 DAYS atorvastati 2020-0 Yes TAKE 1 [facility] ers n 40 mg 7-13 TABLET BY ity of tablet 00:00: MOUTH ONCE [place] 00 DAILY IN [facility] EVENING FOR 90 DAYS atorvastati 2020-0 Yes TAKE 1 [facility] ers n 40 mg 7-13 TABLET BY ity of tablet 00:00: MOUTH ONCE [place] 00 DAILY IN [facility] EVENING FOR 90 DAYS atorvastati 2020-0 Yes TAKE 1 [facility] ers n 40 mg 7-13 TABLET BY ity of tablet 00:00: MOUTH ONCE [place] 00 DAILY IN [facility] EVENING FOR 90 DAYS atorvastati 2020-0 Yes TAKE 1 [facility] ers n 40 mg 7-13 TABLET BY ity of tablet 00:00: MOUTH ONCE [place] 00 DAILY IN [facility] EVENING FOR 90 DAYS atorvastati 2020-0 Yes TAKE 1 [facility] ers n 40 mg 7-13 TABLET BY ity of tablet 00:00: MOUTH ONCE [place] 00 DAILY IN [facility] EVENING FOR 90 DAYS atorvastati 2020-0 Yes TAKE 1 [facility] ers n 40 mg 7-13 TABLET BY ity of tablet 00:00: MOUTH ONCE [place] 00 DAILY IN [facility] EVENING FOR 90 DAYS atorvastati 2020-0 Yes TAKE 1 [facility] ers n 40 mg 7-13 TABLET BY ity of tablet 00:00: MOUTH ONCE [place] 00 DAILY IN [facility] EVENING FOR 90 DAYS atorvastati 2020-0 Yes TAKE 1 [facility] ers n 40 mg 7-13 TABLET BY ity of tablet 00:00: MOUTH ONCE [place] 00 DAILY IN [facility] EVENING FOR 90 DAYS atorvastati 2020-0 Yes TAKE 1 [facility] ers n 40 mg 7-13 TABLET BY ity of tablet 00:00: MOUTH ONCE [place] 00 DAILY IN [facility] EVENING FOR 90 DAYS atorvastati 2020-0 Yes TAKE 1 [facility] ers n 40 mg 7-13 TABLET BY ity of tablet 00:00: MOUTH ONCE [place] 00 DAILY IN [facility] EVENING FOR 90 DAYS atorvastati 2020-0 Yes TAKE 1 [facility] n 40 mg 7-13 TABLET BY ity of tablet 00:00: MOUTH ONCE [place] 00 DAILY IN [facility] EVENING FOR 90 DAYS atorvastati 2020-0 Yes TAKE 1 [facility] n 40 mg 7-13 TABLET BY ity of tablet 00:00: MOUTH ONCE [place] 00 DAILY IN [facility] EVENING FOR 90 DAYS atorvastati 2020-0 Yes TAKE 1 [facility] n 40 mg 7-13 TABLET BY ity of tablet 00:00: MOUTH ONCE [place] 00 DAILY IN [facility] EVENING FOR 90 DAYS atorvastati 2020-0 Yes TAKE 1 [facility] n 40 mg 7-13 TABLET BY ity of tablet 00:00: MOUTH ONCE [place] 00 DAILY IN [facility] EVENING FOR 90 DAYS atorvastati 2020-0 Yes TAKE 1 [facility] n 40 mg 7-13 TABLET BY ity of tablet 00:00: MOUTH ONCE [place] 00 DAILY IN [facility] EVENING FOR 90 DAYS atorvastati 2020-0 Yes TAKE 1 [facility] n 40 mg 7-13 TABLET BY ity of tablet 00:00: MOUTH ONCE [place] 00 DAILY IN [facility] EVENING FOR 90 DAYS atorvastati 2020-0 Yes TAKE 1 [facility] n 40 mg 7-13 TABLET BY ity of tablet 00:00: MOUTH ONCE [place] 00 DAILY IN [facility] EVENING FOR 90 DAYS atorvastati 2020-0 Yes TAKE 1 [facility] n 40 mg 7-13 TABLET BY ity of tablet 00:00: MOUTH ONCE [place] 00 DAILY IN [facility] EVENING FOR 90 DAYS atorvastati 2020-0 Yes TAKE 1 [facility] n 40 mg 7-13 TABLET BY ity of tablet 00:00: MOUTH ONCE [place] 00 DAILY IN [facility] EVENING FOR 90 DAYS atorvastati 2020-0 Yes TAKE 1 [facility] n 40 mg 7-13 TABLET BY ity of tablet 00:00: MOUTH ONCE [place] 00 DAILY IN [facility] EVENING FOR 90 DAYS atorvastati 2020-0 Yes TAKE 1 [facility] n 40 mg 7-13 TABLET BY ity of tablet 00:00: MOUTH ONCE [place] 00 DAILY IN [facility] EVENING FOR 90 DAYS atorvastati 2020-0 Yes TAKE 1 [facility] n 40 mg 7-13 TABLET BY ity of tablet 00:00: MOUTH ONCE [place] 00 DAILY IN [facility] EVENING FOR 90 DAYS atorvastati 2020-0 Yes TAKE 1 [facility] n 40 mg 7-13 TABLET BY ity of tablet 00:00: MOUTH ONCE [place] 00 DAILY IN [facility] EVENING FOR 90 DAYS atorvastati 2020-0 Yes TAKE 1 [facility] n 40 mg 7-13 TABLET BY ity of tablet 00:00: MOUTH ONCE [place] 00 DAILY IN [facility] EVENING FOR 90 DAYS atorvastati 2020-0 Yes TAKE 1 [facility] n 40 mg 7-13 TABLET BY ity of tablet 00:00: MOUTH ONCE [place] 00 DAILY IN [facility] EVENING FOR 90 DAYS atorvastati 2020-0 Yes TAKE 1 [facility] n 40 mg 7-13 TABLET BY ity of tablet 00:00: MOUTH ONCE [place] 00 DAILY IN [facility] EVENING FOR 90 DAYS atorvastati 2020-0 Yes TAKE 1 [facility] n 40 mg 7-13 TABLET BY ity of tablet 00:00: MOUTH ONCE [place] 00 DAILY IN [facility] EVENING FOR 90 DAYS atorvastati 2020-0 Yes TAKE 1 [facility] n 40 mg 7-13 TABLET BY ity of tablet 00:00: MOUTH ONCE [place] 00 DAILY IN [facility] EVENING FOR 90 DAYS busPIRone 5 2020-0 Yes TAKE 1 [facility] ers mg tablet 6-19 TABLET BY ity o f 00:00: MOUTH [place] 00 TWICE Medical DAILY FOR Branch 90 DAYS busPIRone 5 2020-0 Yes TAKE 1 [facility] mg tablet 6-19 TABLET BY ity o f 00:00: MOUTH [place] 00 TWICE Medical DAILY FOR Branch 90 DAYS busPIRone 5 2020-0 Yes TAKE 1 [facility] ers mg tablet 6-19 TABLET BY ity o f 00:00: MOUTH [place] 00 TWICE Medical DAILY FOR Branch 90 DAYS busPIRone 5 2020-0 Yes TAKE 1 [facility] ers mg tablet 6-19 TABLET BY ity o f 00:00: MOUTH [place] 00 TWICE Medical DAILY FOR Branch 90 DAYS busPIRone 5 2020-0 Yes TAKE 1 [facility] mg tablet 6-19 TABLET BY ity o f 00:00: MOUTH [place] 00 TWICE Medical DAILY FOR Branch 90 DAYS busPIRone 5 2020-0 Yes TAKE 1 [facility] mg tablet 6-19 TABLET BY ity o f 00:00: MOUTH [place] 00 TWICE Medical DAILY FOR Branch 90 DAYS busPIRone 5 2020-0 Yes TAKE 1 [facility] mg tablet 6-19 TABLET BY ity o f 00:00: MOUTH [place] 00 TWICE Medical DAILY FOR Branch 90 DAYS busPIRone 5 2020-0 Yes TAKE 1 [facility] mg tablet 6-19 TABLET BY ity o f 00:00: MOUTH [place] 00 TWICE Medical DAILY FOR Branch 90 DAYS busPIRone 5 2020-0 Yes TAKE 1 [facility] mg tablet 6-19 TABLET BY ity o f 00:00: MOUTH [place] 00 TWICE Medical DAILY FOR Branch 90 DAYS busPIRone 5 2020-0 Yes TAKE 1 [facility] mg tablet 6-19 TABLET BY ity o f 00:00: MOUTH [place] 00 TWICE Medical DAILY FOR Branch 90 DAYS busPIRone 5 2020-0 Yes TAKE 1 [facility] mg tablet 6-19 TABLET BY ity o f 00:00: MOUTH [place] 00 TWICE Medical DAILY FOR Branch 90 DAYS busPIRone 5 2020-0 Yes TAKE 1 [facility] mg tablet 6-19 TABLET BY ity o f 00:00: MOUTH [place] 00 TWICE Medical DAILY FOR Branch 90 DAYS busPIRone 5 2020-0 Yes TAKE 1 [facility] mg tablet 6-19 TABLET BY ity o f 00:00: MOUTH [place] 00 TWICE Medical DAILY FOR Branch 90 DAYS busPIRone 5 2020-0 Yes TAKE 1 [facility] mg tablet 6-19 TABLET BY ity o f 00:00: MOUTH [place] 00 TWICE Medical DAILY FOR Branch 90 DAYS busPIRone 5 2020-0 Yes TAKE 1 Univ ers mg tablet 6-19 TABLET BY ity o f 00:00: MOUTH [place] 00 TWICE Medical DAILY FOR Branch 90 DAYS busPIRone 5 2020-0 Yes TAKE 1 Univ ers mg tablet 6-19 TABLET BY ity o f 00:00: MOUTH [place] 00 TWICE Medical DAILY FOR Branch 90 DAYS busPIRone 5 2020-0 Yes TAKE 1 Univ ers mg tablet 6-19 TABLET BY ity o f 00:00: MOUTH [place] 00 TWICE Medical DAILY FOR Branch 90 DAYS busPIRone 5 2020-0 Yes TAKE 1 Univ ers mg tablet 6-19 TABLET BY ity o f 00:00: MOUTH [place] 00 TWICE Medical DAILY FOR Branch 90 DAYS busPIRone 5 2020-0 Yes TAKE 1 Univ ers mg tablet 6-19 TABLET BY ity o f 00:00: MOUTH [place] 00 TWICE Medical DAILY FOR Branch 90 DAYS busPIRone 5 2020-0 Yes TAKE 1 Univ ers mg tablet 6-19 TABLET BY ity o f 00:00: MOUTH [place] 00 TWICE Medical DAILY FOR Branch 90 DAYS busPIRone 5 2020-0 Yes TAKE 1 Univ ers mg tablet 6-19 TABLET BY ity o f 00:00: MOUTH [place] 00 TWICE Medical DAILY FOR Branch 90 DAYS busPIRone 5 2020-0 Yes TAKE 1 Univ ers mg tablet 6-19 TABLET BY ity o f 00:00: MOUTH [place] 00 TWICE Medical DAILY FOR Branch 90 DAYS busPIRone 5 2020-0 Yes TAKE 1 Univ ers mg tablet 6-19 TABLET BY ity o f 00:00: MOUTH [place] 00 TWICE Medical DAILY FOR Branch 90 DAYS busPIRone 5 2020-0 Yes TAKE 1 Univ ers mg tablet 6-19 TABLET BY ity o f 00:00: MOUTH [place] 00 TWICE Medical DAILY FOR Branch 90 DAYS busPIRone 5 2020-0 Yes TAKE 1 Univ ers mg tablet 6-19 TABLET BY ity o f 00:00: MOUTH [place] 00 TWICE Medical DAILY FOR Branch 90 DAYS busPIRone 5 2020-0 Yes TAKE 1 Univ ers mg tablet 6-19 TABLET BY ity o f 00:00: MOUTH [place] 00 TWICE Medical DAILY FOR Branch 90 DAYS busPIRone 5 2020-0 Yes TAKE 1 Univ ers mg tablet 6-19 TABLET BY ity o f 00:00: MOUTH [place] 00 TWICE Medical DAILY FOR Branch 90 DAYS busPIRone 5 2020-0 Yes TAKE 1 Univ ers mg tablet 6-19 TABLET BY ity o f 00:00: MOUTH [place] 00 TWICE Medical DAILY FOR Branch 90 DAYS busPIRone 5 2020-0 Yes TAKE 1 Univ ers mg tablet 6-19 TABLET BY ity o f 00:00: MOUTH [place] 00 TWICE Medical DAILY FOR Branch 90 DAYS busPIRone 5 2020-0 Yes TAKE 1 Univ ers mg tablet 6-19 TABLET BY ity o f 00:00: MOUTH [place] 00 TWICE Medical DAILY FOR Branch 90 DAYS busPIRone 5 2020-0 Yes TAKE 1 Univ ers mg tablet 6-19 TABLET BY ity o f 00:00: MOUTH [place] 00 TWICE Medical DAILY FOR Branch 90 DAYS busPIRone 5 2020-0 Yes TAKE 1 Univ ers mg tablet 6-19 TABLET BY ity o f 00:00: MOUTH [place] 00 TWICE Medical DAILY FOR Branch 90 DAYS busPIRone 5 2020-0 Yes TAKE 1 Univ ers mg tablet 6-19 TABLET BY ity o f 00:00: MOUTH [place] 00 TWICE Medical DAILY FOR Branch 90 DAYS busPIRone 5 2020-0 Yes TAKE 1 Univ ers mg tablet 6-19 TABLET BY ity o f 00:00: MOUTH [place] 00 TWICE Medical DAILY FOR Branch 90 DAYS busPIRone 5 2020-0 Yes TAKE 1 Univ ers mg tablet 6-19 TABLET BY ity o f 00:00: MOUTH [place] 00 TWICE Medical DAILY FOR Branch 90 DAYS busPIRone 5 2020-0 Yes TAKE 1 Univ ers mg tablet 6-19 TABLET BY ity o f 00:00: MOUTH [place] 00 TWICE Medical DAILY FOR Branch 90 DAYS busPIRone 5 2020-0 Yes TAKE 1 Univ ers mg tablet 6-19 TABLET BY ity o f 00:00: MOUTH [place] 00 TWICE Medical DAILY FOR Branch 90 DAYS busPIRone 5 2020-0 Yes TAKE 1 Univ ers mg tablet 6-19 TABLET BY ity o f 00:00: MOUTH [place] 00 TWICE Medical DAILY FOR Branch 90 DAYS busPIRone 5 2020-0 Yes TAKE 1 Univ ers mg tablet 6-19 TABLET BY ity o f 00:00: MOUTH [place] 00 TWICE Medical DAILY FOR Branch 90 DAYS busPIRone 5 2020-0 Yes TAKE 1 Univ ers mg tablet 6-19 TABLET BY ity o f 00:00: MOUTH [place] 00 TWICE Medical DAILY FOR Branch 90 DAYS busPIRone 5 2020-0 Yes TAKE 1 Univ ers mg tablet 6-19 TABLET BY ity o f 00:00: MOUTH [place] 00 TWICE Medical DAILY FOR Branch 90 DAYS busPIRone 5 2020-0 Yes TAKE 1 Univ ers mg tablet 6-19 TABLET BY ity o f 00:00: MOUTH [place] 00 TWICE Medical DAILY FOR Branch 90 DAYS busPIRone 5 2020-0 Yes TAKE 1 Univ ers mg tablet 6-19 TABLET BY ity o f 00:00: MOUTH [place] 00 TWICE Medical DAILY FOR Branch 90 DAYS busPIRone 5 2020-0 Yes TAKE 1 Univ ers mg tablet 6-19 TABLET BY ity o f 00:00: MOUTH [place] 00 TWICE Medical DAILY FOR Branch 90 DAYS busPIRone 5 2020-0 Yes TAKE 1 Univ ers mg tablet 6-19 TABLET BY ity o f 00:00: MOUTH [place] 00 TWICE Medical DAILY FOR Branch 90 DAYS busPIRone 5 2020-0 Yes TAKE 1 Univ ers mg tablet 6-19 TABLET BY ity o f 00:00: MOUTH [place] 00 TWICE Medical DAILY FOR Branch 90 DAYS busPIRone 5 2020-0 Yes TAKE 1 Univ ers mg tablet 6-19 TABLET BY ity o f 00:00: MOUTH [place] 00 TWICE Medical DAILY FOR Branch 90 DAYS busPIRone 5 2020-0 Yes TAKE 1 Univ ers mg tablet 6-19 TABLET BY ity o f 00:00: MOUTH [place] 00 TWICE Medical DAILY FOR Branch 90 DAYS busPIRone 5 2020-0 Yes TAKE 1 Univ ers mg tablet 6-19 TABLET BY ity o f 00:00: MOUTH [place] 00 TWICE Medical DAILY FOR Branch 90 DAYS busPIRone 5 2020-0 Yes TAKE 1 Univ ers mg tablet 6-19 TABLET BY ity o f 00:00: MOUTH [place] 00 TWICE Medical DAILY FOR Branch 90 DAYS busPIRone 5 2020-0 Yes TAKE 1 Univ ers mg tablet 6-19 TABLET BY ity o f 00:00: MOUTH [place] 00 TWICE Medical DAILY FOR Branch 90 DAYS busPIRone 5 2020-0 Yes TAKE 1 Univ ers mg tablet 6-19 TABLET BY ity o f 00:00: MOUTH [place] 00 TWICE Medical DAILY FOR Branch 90 DAYS busPIRone 5 2020-0 Yes TAKE 1 Univ ers mg tablet 6-19 TABLET BY ity o f 00:00: MOUTH [place] 00 TWICE Medical DAILY FOR Branch 90 DAYS busPIRone 5 2020-0 Yes TAKE 1 Univ ers mg tablet 6-19 TABLET BY ity o f 00:00: MOUTH [place] 00 TWICE Medical DAILY FOR Branch 90 DAYS busPIRone 5 2020-0 Yes TAKE 1 Univ ers mg tablet 6-19 TABLET BY ity o f 00:00: MOUTH [place] 00 TWICE Medical DAILY FOR Branch 90 DAYS busPIRone 5 2020-0 Yes TAKE 1 Univ ers mg tablet 6-19 TABLET BY ity o f 00:00: MOUTH [place] 00 TWICE Medical DAILY FOR Branch 90 DAYS busPIRone 5 2020-0 Yes TAKE 1 Univ ers mg tablet 6-19 TABLET BY ity o f 00:00: MOUTH [place] 00 TWICE Medical DAILY FOR Branch 90 DAYS busPIRone 5 2020-0 Yes TAKE 1 Univ ers mg tablet 6-19 TABLET BY ity o f 00:00: MOUTH [place] 00 TWICE Medical DAILY FOR Branch 90 DAYS busPIRone 5 2020-0 Yes TAKE 1 Univ ers mg tablet 6-19 TABLET BY ity o f 00:00: MOUTH [place] 00 TWICE Medical DAILY FOR Branch 90 DAYS busPIRone 5 2020-0 Yes TAKE 1 Univ ers mg tablet 6-19 TABLET BY ity o f 00:00: MOUTH [place] 00 TWICE Medical DAILY FOR Branch 90 DAYS busPIRone 5 2020-0 Yes TAKE 1 Univ ers mg tablet 6-19 TABLET BY ity o f 00:00: MOUTH [place] 00 TWICE Medical DAILY FOR Branch 90 DAYS busPIRone 5 2020-0 Yes TAKE 1 Univ ers mg tablet 6-19 TABLET BY ity o f 00:00: MOUTH [place] 00 TWICE Medical DAILY FOR Branch 90 DAYS busPIRone 5 2020-0 Yes TAKE 1 Univ ers mg tablet 6-19 TABLET BY ity o f 00:00: MOUTH [place] 00 TWICE Medical DAILY FOR Branch 90 DAYS busPIRone 5 2020-0 Yes TAKE 1 Univ ers mg tablet 6-19 TABLET BY ity o f 00:00: MOUTH [place] 00 TWICE Medical DAILY FOR Branch 90 DAYS busPIRone 5 2020-0 Yes TAKE 1 Univ ers mg tablet 6-19 TABLET BY ity o f 00:00: MOUTH [place] 00 TWICE Medical DAILY FOR Branch 90 DAYS busPIRone 5 2020-0 Yes TAKE 1 Univ ers mg tablet 6-19 TABLET BY ity o f 00:00: MOUTH [place] 00 TWICE Medical DAILY FOR Branch 90 DAYS busPIRone 5 2020-0 Yes TAKE 1 Univ ers mg tablet 6-19 TABLET BY ity o f 00:00: MOUTH [place] 00 TWICE Medical DAILY FOR Branch 90 DAYS busPIRone 5 2020-0 Yes TAKE 1 Univ ers mg tablet 6-19 TABLET BY ity o f 00:00: MOUTH [place] 00 TWICE Medical DAILY FOR Branch 90 DAYS busPIRone 5 2020-0 Yes TAKE 1 Univ ers mg tablet 6-19 TABLET BY ity o f 00:00: MOUTH [place] 00 TWICE Medical DAILY FOR Branch 90 DAYS busPIRone 5 2020-0 Yes TAKE 1 Univ ers mg tablet 6-19 TABLET BY ity o f 00:00: MOUTH [place] 00 TWICE Medical DAILY FOR Branch 90 DAYS busPIRone 5 2020-0 Yes TAKE 1 Univ ers mg tablet 6-19 TABLET BY ity o f 00:00: MOUTH [place] 00 TWICE Medical DAILY FOR Branch 90 DAYS busPIRone 5 2020-0 Yes TAKE 1 Univ ers mg tablet 6-19 TABLET BY ity o f 00:00: MOUTH [place] 00 TWICE Medical DAILY FOR Branch 90 DAYS busPIRone 5 2020-0 Yes TAKE 1 Univ ers mg tablet 6-19 TABLET BY ity o f 00:00: MOUTH [place] 00 TWICE Medical DAILY FOR Branch 90 DAYS Furosemide Furosemide Yes Roseanne [address] [facility] Immunizations Ordered Filled Immunization Date Status Comments Sour e Immunization Name Name SARS-COV-2 COVID-19 2021-01-01 Completed Unive rsity of PFIZER VACCINE 00:00:00 [facility] SARS-COV-2 COVID-19 2021-01-01 Completed Unive rsity of PFIZER VACCINE 00:00:00 [facility] SARS-COV-2 COVID-19 2021-01-01 Completed Unive rsity of PFIZER VACCINE 00:00:00 [facility] SARS-COV-2 COVID-19 2021-01-01 Completed Unive rsity of PFIZER VACCINE 00:00:00 [facility] SARS-COV-2 COVID-19 2021-01-01 Completed Unive rsity of PFIZER VACCINE 00:00:00 [facility] SARS-COV-2 COVID-19 2021-01-01 Completed Unive rsity of PFIZER VACCINE 00:00:00 [place] [facility] SARS-COV-2 COVID-19 2021-01-01 Completed Unive rsity of PFIZER VACCINE 00:00:00 [place] [facility] SARS-COV-2 COVID-19 2021-01-01 Completed Unive rsity of PFIZER VACCINE 00:00:00 [facility] SARS-COV-2 COVID-19 2021-01-01 Completed Unive rsity of PFIZER VACCINE 00:00:00 [facility] SARS-COV-2 COVID-19 2021-01-01 Completed Unive rsity of PFIZER VACCINE 00:00:00 [facility] SARS-COV-2 COVID-19 2021-01-01 Completed Unive rsity of PFIZER VACCINE 00:00:00 [facility] SARS-COV-2 COVID-19 2021-01-01 Completed Unive rsity of PFIZER VACCINE 00:00:00 [facility] SARS-COV-2 COVID-19 2021-01-01 Completed Unive rsity of PFIZER VACCINE 00:00:00 [facility] SARS-COV-2 COVID-19 2021-01-01 Completed Unive rsity of PFIZER VACCINE 00:00:00 [facility] SARS-COV-2 COVID-19 2021-01-01 Completed Unive rsity of PFIZER VACCINE 00:00:00 [facility] SARS-COV-2 COVID-19 2020-12-11 Completed Unive rsity of PFIZER VACCINE 00:00:00 [facility] SARS-COV-2 COVID-19 2020-12-11 Completed Unive rsity of PFIZER VACCINE 00:00:00 [place] [facility] SARS-COV-2 COVID-19 2020-12-11 Completed Unive rsity of PFIZER VACCINE 00:00:00 [place] [facility] SARS-COV-2 COVID-19 2020-12-11 Completed Unive rsity of PFIZER VACCINE 00:00:00 [place] [facility] SARS-COV-2 COVID-19 2020-12-11 Completed Unive rsity of PFIZER VACCINE 00:00:00 [facility] SARS-COV-2 COVID-19 2020-12-11 Completed Unive rsity of PFIZER VACCINE 00:00:00 [place] [facility] SARS-COV-2 COVID-19 2020-12-11 Completed Unive rsity of PFIZER VACCINE 00:00:00 [facility] SARS-COV-2 COVID-19 2020-12-11 Completed Unive rsity of PFIZER VACCINE 00:00:00 [place] [facility] SARS-COV-2 COVID-19 2020-12-11 Completed Unive rsity of PFIZER VACCINE 00:00:00 [facility] SARS-COV-2 COVID-19 2020-12-11 Completed Unive rsity of PFIZER VACCINE 00:00:00 [place] [facility] SARS-COV-2 COVID-19 2020-12-11 Completed Unive rsity of PFIZER VACCINE 00:00:00 [place] [facility] SARS-COV-2 COVID-19 2020-12-11 Completed Unive rsity of PFIZER VACCINE 00:00:00 [facility] SARS-COV-2 COVID-19 2020-12-11 Completed Unive rsity of PFIZER VACCINE 00:00:00 [facility] SARS-COV-2 COVID-19 2020-12-11 Completed Unive rsity of PFIZER VACCINE 00:00:00 [facility] SARS-COV-2 COVID-19 2020-12-11 Completed Unive rsity of PFIZER VACCINE 00:00:00 [facility] SARS-COV-2 COVID-19 2020-12-11 Completed Unive rsity of PFIZER VACCINE 00:00:00 [facility] SARS-COV-2 COVID-19 2020-12-11 Completed Unive rsity of PFIZER VACCINE 00:00:00 [facility] SARS-COV-2 COVID-19 2020-12-11 Completed Unive rsity of PFIZER VACCINE 00:00:00 [place] [facility] SARS-COV-2 COVID-19 2020-12-11 Completed Unive rsity of PFIZER VACCINE 00:00:00 [facility] SARS-COV-2 COVID-19 2020-12-11 Completed Unive rsity of PFIZER VACCINE 00:00:00 [facility] SARS-COV-2 COVID-19 2020-12-11 Completed Unive rsity of PFIZER VACCINE 00:00:00 [facility] SARS-COV-2 COVID-19 2020-12-11 Completed Unive rsity of PFIZER VACCINE 00:00:00 [facility] FLUZONE HIGH DOSE FLUZONE HIGH DOSE 2019-07-[address] [facility] - OVER 65 OVER 65 00:00:00 [facility] Vital Signs Vital Name Observation Time Observation Value Comments Source Body temperature 2021-04-01 16:17:00 35.83 Karly Univ ers[facility] Body weight 2021-04-01 16:17:00 93.441 kg [facility] BMI 2021-04-01 16:17:00 37.68 kg/m2 [facility] Body temperature 2020-12-24 16:11:00 35.94 Karly [facility] Body height 2020-12-24 16:11:00 157.5 cm [facility]i [facility] Body weight 2020-12-24 16:11:00 93.441 kg [facility] BMI 2020-12-24 16:11:00 37.68 kg/m2 [facility] Body temperature 2020-10-22 16:14:00 35.89 Karly [facility] Body height 2020-10-22 16:14:00 157.5 cm [facility]i [facility] of [facility] Body weight 2020-10-22 16:14:00 93.441 kg Universi ty of [facility] BMI 2020-10-22 16:14:00 37.68 kg/m2 [facility]i ty of [facility] Body temperature 2020-08-27 19:05:00 35.94 Karly [facility] Body height 2020-08-27 19:05:00 157.5 cm [facility]i [facility] of [facility] Body weight 2020-08-27 19:05:00 93.441 kg [facility] BMI 2020-08-27 19:05:00 37.67 kg/m2 [facility]i ty of [facility] Body temperature 2020-08-27 19:05:00 35.94 Karly [facility] Body height 2020-08-27 19:05:00 157.5 cm [facility]i [facility] Body weight 2020-08-27 19:05:00 93.441 kg [facility] BMI 2020-08-27 19:05:00 37.67 kg/m2 [facility] [place] [facility] Body temperature 2020-07-30 19:10:00 35.94 Karly [facility] Body weight 2020-07-30 19:10:00 93.486 kg [facility] BMI 2020-07-30 19:10:00 37.70 kg/m2 [facility] Body temperature 2020-06-25 21:10:00 35.94 Karly [facility] Body weight 2020-06-25 21:10:00 93.486 kg [facility] BMI 2020-06-25 21:10:00 37.70 kg/m2 [facility] Body temperature 2020-06-11 15:58:00 35.61 Karly [facility] Body weight 2020-06-11 15:58:00 97.659 kg [facility] BMI 2020-06-11 15:58:00 39.38 kg/m2 [facility] Body temperature 2020-06-02 20:28:00 36.67 Karly [facility] Respiratory rate 2020-05-15 23:45:00 18 /min [facility] Systolic blood 2020-05-15 23:15:00 174 mm[Hg] Univer sity of pressure [facility] Diastolic blood 2020-05-15 23:15:00 70 mm[Hg] Unive rsity of pressure [facility] Heart rate 2020-05-15 23:15:00 75 /min [facility]i [facility] Oxygen saturation in 2020-05-15 23:15:00 96 /min University of Arterial blood by [facility] Pulse oximetry Branch Body temperature 2020-05-15 22:39:00 35.61 Karly [facility] Body height 2020-05-15 14:38:00 157.5 cm [facility]i ty of [facility] Body weight 2020-05-15 14:38:00 97.7 kg [facility] BMI 2020-05-15 14:38:00 39.40 kg/m2 [facility] Body temperature 2020-05-05 20:19:00 36.72 Karly [facility] Systolic blood 2020-04-30 19:52:00 125 mm[Hg] Univer sity of pressure [facility] Diastolic blood 2020-04-30 19:52:00 74 mm[Hg] [facility] pressure [facility] Heart rate 2020-04-30 19:52:00 74 /min [facility] Respiratory rate 2020-04-30 19:52:00 18 /min [facility] Body height 2020-04-30 19:52:00 157.5 cm [facility] Body weight 2020-04-30 19:52:00 108.863 kg [facility] BMI 2020-04-30 19:52:00 43.90 kg/m2 [facility] Procedures Procedure Date / Time Performing Clinician Source Performed HOME HEALTH - OTHER 2021-06-22 05:01:[address] [facility] Name [facility] - OTHER 2021-06-01 05:01:[address] [facility] Name [facility] HOME HE[facility] [id number] 2021-04-29 05:01:00 Doctor Almas [facility] Name [facility] [place] XR WRIST 3+ VW LEFT 2020-12-24 16:18:40 Gasper Armenta [facility] CONSULT ADULT 2020-12-24 00:00:00 Dave Davies [facility] OCCUPATIONAL THERAPY [facility] XR WRIST 3+ VW LEFT 2020-10-22 16:19:54 Samuel Armendariz [facility] XR WRIST 3+ VW LEFT 2020-08-27 19:17:56 Martínez Henson [facility] XR WRIST 3+ VW LEFT 2020-07-30 19:21:41 Martínez Henson [facility] MEDICATION CORRESPONDENCE 2020-06-25 06:01:00 Doctor Almas [facility] [place] POCT GLUCOSE (AUTOMATED) 2020-05-15 22:57:00 [facility] [place] [facility] 2020-05-15 22:39:10 Gasper Armenta [facility] (NON-REPORTABLE) [facility] POCT GLUCOSE (AUTOMATED) 2020-05-15 15:11:00 Gasper Armenta [facility] CONSENT/REFUSAL FOR 2020-05-15 14:28:21 Doctor Almas, [facility] DIAGNOSIS AND TREATMENT [facility] ASSIGNMENT OF BENEFITS 2020-05-15 14:27:53 Doctor [facility] [place] NOTICE OF PRIVACY 2020-05-13 16:38:06 Doctor Almas [facility] PRACTICES [place] XR WRIST 3+ VW LEFT 2020-05-05 20:08:00 Gasper Armenta [facility] XR WRIST <3 VW LEFT 2020-04-30 19:49:11 Marlene Mcdonald [facility] Encounters Start End Encounter Admission Attending Care Care Encounter Source Date/Time Date/Time Type Type Clinicians Facility Department ID 2021-06-[address] [facility] [id number] Univers 17:40:46 GASPER keating [facility] 2021-06-22 2021-06-22 Orders Doctor GASPER [id number] Univers 00:00:00 00:00:00 Only Unassigned, RY [id number] [facility]y [facility] [id number] [place] as [id number] [address] 2021-06-01 2021-06-01 Orders Doctor GASPER [id number] Univers 00:00:00 00:00:00 Only Unassigned, RY [id number] [facility] [id number] [place] [id number] [address] 2021-06-01 2021-06-01 [facility] [id number] [facility] St 00:00[facility]00 [facility] 2021-05-26 2021-05-26 [facility] [id number] [facility] 2021-04-29 2021-04-29 Orders Doctor GASPER [id number] Univers 00:00:00 00:00:00 Only Unassigned, RY [id number] [facility] [id number] [place] [id number] [address] 2021-04-24 2021-04-24 Telephone [facility] [id number] Univers 00:00:00 00:00:00 Gasper SPECIALTY [id number] [id number] [phone] Nm zachery OCONNOR [address] [facility] 2021-04-14 2021-04-14 [facility] [id number] Univers 00:00:00 00:00:00 Outreach Cally SPECIALTY [id number] [id number] [id number] Nm zachery OCONNOR [address] [place] [address] 2021-04-01 2021-04-01 Office [facility] [id number] Univers 10:10:32 12:11:09 Visit Gasper SPECIALTY [id number] [id number] [id number] Nm zachery OCONNOR [address] [place] [address] 2021-04-01 2021-04-01 [facility] [id number] Univers 11:00:00 11:00:00 GASPER [id number] [facility] 2021-04-01 2021-04-01 [facility] [id number] Univers 11:00:00 11:00:00 GASPER [facility] 2021-03-13 2021-03-13 [facility] [id number] [facility] 2021-02-27 2021-02-27 [facility] [id number] [facility] 2021-01-13 2021-01-[address] [facility] [id number] Univers 15:15:00 15:15:00 [id number] [facility] 2021-01-13 2021-01-[address] [facility] [id number] Univers 15:15:00 15:15:00 GABI ity [facility] 2021-01-06 2021-01-[address] [facility] [id number] Univers 10:30:00 10:30:00 [id number] ity [facility] 2021-01-01 2021-01-01 Ancillary Anand Hughes [facility] [id number]. [id number] Univers 15:14:20 15:59:20 Visit Gabi Graff [id number] [id number] [facility] [id number] Nm juani[address] 2021-01-01 2021-01-[address] [facility] [id number] Univers 15:30:00 15:30:00 [id number] [facility] 2021-01-01 2021-01-01 [facility] [id number] Univers 14:50:00 14:50:00 TERRY [facility] 2020-12-31 2020-12-[address] [facility] [id number] Univers 10:30:00 10:30:00 EDA [facility] 2020-12-24 2020-12-24 [facility] [id number] Univers 11:14:00 23:59:00 Encounter Gasper ROSY [id number] [id number] [id number] Nm zachery VICTORY [address] Branch [facility] 2020-12-24 2020-12-24 Ancillary Therapy-Rebecca DickinsonExw-Im-Gqord [facility] B [id number] Univers 12:31:32 13:51:28 Visit Filemon Reyes [id number] [id number] [facility] [id number] [address] ([facility]) 2020-12-24 2020-12-24 [facility] [id number] Univers 13:15:00 13:15:00 FILEMON rona [facility] 2020-12-24 2020-12-24 [facility] [id number] Univers 11:07:42 12:05:44 Visit Gasper GALLEGOS [id number] [id number] [id number] Nm zachery [address] 2020-12-24 2020-12-24 Outpatient [facility] [id number] Univers 11:00:00 11:00:00 GASPER [id number] ity [facility] 2020-12-24 2020-12-24 Outpatient [facility] [id number] Univers 11:00:00 11:00:00 GASPER keating [facility] 2020-12-23 2020-12-23 Ancillary Anand Hughes [facility] 1.2. 840.114 [id number] Univers 11:21:38 13:36:07 Visit Gabi Graff 350.1.13.10 ity of [place] [phone] Nm zachery [address] 2020-12-23 2020-12-[address] [facility] [id number] Univers 11:45:00 11:45:00 [id number] [facility] 2020-12-[address] [facility] [id number] Univers 11:45:00 11:45:00 GABI itrona [facility] 2020-12-18 2020-12-[address] [facility] [id number] -[id number] Univers 11:45:00 11:45:00 [id number] [facility] 2020-12-11 2020-12-11 Ancillary Anand Hughes [facility] 1.2. 840.114 [id number] Univers 11:25:45 12:10:45 Visit Gabi Graff 350.1.13.10 it[place] of [place] [phone] Me dical nal [address] [place] [address] 2020-12-11 2020-12-[address] [facility] [id number] -[id number] Univers 11:45:00 11:45:00 [id number] ity of [facility] 2020-12-11 2020-12-[address] [facility] [id number] Univers 11:45:00 11:45:00 ity [facility] 2020-12-11 2020-12-11 Outpatient R ARELI, [facility] [id number] Univers 11:20:00 11:20:00 EDA ity [facility] 2020-12-04 2020-12-04 Ancillary Anand Hughes [facility] 1.2. 840.114 [id number] Univers 10:57:34 11:55:34 Visit Gabi Graff 350.1.13.10 it[place] of [place] [phone] Nm dical nal [address] [place] [address] 2020-12-04 2020-12-[address] [facility] [id number] -[id number] Univers 11:00:00 11:00:00 [id number] [facility] 2020-11-17 2020-11-17 Outpatient [facility]ML[facility] [id number] [facility] 00[facility]:00 Angelique telles Outpati ent Clinics 2020-11-13 2020-11-13 Ancillary Anand Hughes [facility] 1.2. 840.114 [id number] Univers 10:51:29 11:36:29 Visit Gabi Graff 350.1.13.10 it[place] of [place] [phone] Nm dical nal [address] [place] [address] 2020-11-13 2020-11-[address] [facility] [id number] -[id number] Univers 11:00:00 11:00:00 [id number] ity [facility] 2020-11-13 2020-11-13 [facility] [id number] Univers 11:00:00 11:00:00 [facility] 2020-11-06 2020-11-06 Ancillary Anand Hughes [facility] 1.2. 840.114 [id number] Univers 10:51:06 12:01:50 Visit Gabi Graff 350.1.13.10 it[place] [phone] Nm dical nal [address] [facility] 2020-11-06 2020-11-[address] [facility] [id number] -20 Univers 11:00:00 11:00:00 [id number] ity [facility] 2020-11-06 2020-11-[address] [facility] [id number] Univers 11:00:00 11:00:00 GABI [facility] 2020-10-31 2020-10-31 Outpatient STLMLC [facility] [id number] [facility] 00[facility]00 [facility] 2020-10-30 2020-10-30 Ancillary Anand Hughes [facility] 1.2. 840.114 [id number] Univers 11:13:01 13:12:15 Visit Gabi Gra[facility] 350.1.13.10 [facility] [place] [phone] Nm dical nal [address] [facility] 2020-10-30 2020-10-[address] [facility] [id number] -[id number] Univers 11:15:00 11:15:00 [id number] [facility] 2020-10-30 2020-10-[address] [facility] [id number] Univers 11:15:00 11:15:00 GABI rona [facility] 2020-10-27 2020-10-27 Patient Jovan [facility] 1.2.840.114 [id number] Univers 00:00:00 00:00:00 Outreach Terry PRIMARY 350.1.13.10 i ty of [facility] [place].2.7.2.[place] [phone] Nm dical [address] 2020-10-22 2020-10-22 [facility] 1.2.840.114 [id number] Univers 10:13:46 23:59:00 Encounter Gasper SPECIALTY 350.1.13.10 it[place] AT [phone] Nm zachery OCONNOR 809 [facility] 2020-10-22 2020-10-22 Outpatient R [facility] [id number] Univers 13:30:00 13:30:00 GASPER ity [facility] 2020-10-22 2020-10-22 Office [facility] 1.2.256.939 [id number] Univers 10:08:42 10:18:42 Visit Gasper SPECIALTY 350.1.13.10 it[place] [phone] Nm zachery CARRION 198 [facility] 2020-10-22 2020-10-22 [facility] [id number] A-20 Univers 10:00:00 10:00:00 PILO [id number] ity [facility] 2020-10-22 2020-10-22 Abstract Kala [facility] 1.2.840.114 [id number] Univers 00:00:00 00:00:00 [facility] 350.1.13.10 it y of [facility] 4.2.7.2.[place] [phone] [address] 2020-10-21 2020-10-21 Ancillary Anand Hughes [facility] 1.2. 840.114 [id number] Univers 09:50:21 10:54:10 Visit Gabi Graff 350.1.13.10 it[place] of [place] [phone] Nm dical nal [address] [facility] 2020-10-21 2020-10-[address] [facility] [id number] -20 Univers 10:00:00 10:00:00 [id number] ity [facility] 2020-10-21 2020-10-21 [facility] [id number] Univers 10:00:00 10:00:00 GABI [facility] 2020-10-08 2020-10-08 Outpatient R KTAHI, [facility] [id number]-20 Univers 11:00:00 11:00:00 GASPER [id number] [facility] 2020-10-08 2020-10-08 Outpatient R KATHI, [facility] [id number] Univers 11:00:00 11:00:00 GASPER [facility] 2020-10-01 2020-10-01 Outpatient R KATHI, [facility] [id number]-20 Univers 14:00:00 14:00:00 GSAPER [id number] [facility] 2020-10-01 2020-10-01 Outpatient R KATHI, [facility] [id number] Univers 14:00:00 14:00:00 GASPER [facility] 2020-10-01 2020-10-01 [facility] [id number] Univers 11:00:00 11:00:00 PILO [facility] 2020-09-30 2020-09-[address] [facility] [id number] -[id number] Univers 10:45:00 10:45:00 [id number] [facility] 2020-09-25 2020-09-[address] [facility] [id number] -20 Univers 10:00:00 10:00:00 [id number] [facility] 2020-09-25 2020-09-25 [facility] [id number] Univers 10:00:00 10:00:00 GABI [facility] 2020-09-23 2020-09-23 Out[facility] [id number]-20 Univers 11:30:00 11:30:00 PILO [id number] [facility] 2020-09-18 2020-09-18 Ancillary Anand Hughes [facility] 1.2. 840.114 [id number] Univers 10:09:55 11:20:34 Visit Gabi Graff 350.1.13.10 [facility] 4.2.7.2.686 Kaushik brown Professio [phone] Nm dical [address] 2020-09-18 2020-09-18 [facility] 1.2.708.753 [id number] 10:09:55 11:20:34 Visit Anand Coates 350.1.13.10 Jose Manuel Stevenson 4.2.7.2.686 Professio [phone] [address] 2020-09-18 2020-09-[address] [facility] [id number] -[id number] Univers 10:30:00 10:30:00 [id number] [facility] 2020-09-18 2020-09-18 Outpatient STLMLC [facility] [id number] [facility] 00:[facility]:00 Angelique Ulloapati ent Clinics 2020-09-17 2020-09-17 Outpatient R [facility] [id number]-20 Univers 10:30:00 10:30:00 PILO [id number] [facility] 2020-09-17 2020-09-17 Outpatient R [facility] [id number] Univers 10:30:00 10:30:00 PILO [facility] 2020-09-10 2020-09-10 Outpatient R [facility] [id number]-20 Univers 13:00:00 13:00:00 PILO [id number] [facility] 2020-09-10 2020-09-10 Outpatient R [facility] [id number] Univers 13:00:00 13:00:00 PILO [facility] 2020-09-09 2020-09-09 Ancillary Anand Hughes [facility] 1.2. 840.114 [id number] Univers 10:25:00 11:28:35 Visit Gabi Graff 350.1.13.10 [facility] [place] [phone] Nm dic[address] 2020-09-09 2020-09-09 Ancillary Saul [facility] 1.2.257.900 [id number] 10:25:00 11:28:35 Visit Anand Coates 350.1.13.10 Jose Manuel Stevenson 4.2.7.2.686 Professio [phone] [address] 2020-09-09 2020-09-[address] [facility] [id number] -[id number] Univers 10:30:00 10:30:00 [id number] ity [facility] 2020-09-04 2020-09-04 Ancillary Bruno HughesAnand K [facility] 1.2. 840.114 [id number] Univers 11:03:12 12:12:29 Visit Gabi Graff 350.1.13.10 ity [facility] 4.2.7.2.[place] [phone] Nm dical [address] 2020-09-04 2020-09-04 Ancillary Saul [facility] 1.2.762.877 [id number] 11:03:12 12:12:29 Visit Anand Coates 350.1.13.10 [place].686 Professio [phone] [address] 2020-09-04 2020-09-[address] [facility] [id number] -[id number] Univers 11:15:00 11:15:00 [id number] ity [facility] 2020-09-04 2020-09-04 Out[facility] [id number] Univers 11:15:00 11:15:00 GABI ity [facility] 2020-09-03 2020-09-03 Outpatient [facility] [id number] A-20 Univers 16:00:00 16:00:00 PILO [id number] ity [facility] 2020-09-02 2020-09-[address] [facility] [id number] -20 Univers 10:30:00 10:30:00 [id number] ity [facility] 2020-08-27 2020-08-27 [facility] 1.2.840.114 [id number] Univers 13:07:15 23:59:00 Encounter Gasper ROSY 350.1.13.10 ity of [facility] 4.2.7.2.[place] AT [phone] Nm dical [facility] 809 [facility] 2020-08-27 2020-08-27 [facility] 1.2.840.114 [id number] 13:07:15 23:59:00 Encounter Gasper SPECIALTY 350.1.13.10 CARE 4.2.7.2.686 CENTER AT [phone] ANASTASIA Dobbins [facility] 2020-08-27 2020-08-27 [facility] [id number] 9A-20 Univers 14:00:00 14:00:00 GASPER [id number] y [facility] 2020-08-27 2020-08-[address] [facility] [id number] Univers 14:00:00 14:00:00 ABENA [facility] 2020-08-27 2020-08-27 Office [facility] 1.2.840.114 [id number] Univers 12:42:33 13:42:16 Visit Abena SPECIALTY 350.1.13.10 it[place] [phone] Nm dical SHEYLARona [address] [place] [address] 2020-08-27 2020-08-27 Office [facility] 1.2.840.114 [id number] 12:42:33 13:42:16 Visit Abena SPECIALTY 350.1.13.10 CARE 4.2.7.2.686 CENTER AT [phone] [address] 2020-08-27 2020-08-27 Abstract Natividad [facility] 1.2.840.114 [id number] Univers 00:00:00 00:00:00 Martínez SPECIALTY 350.1.13.10 it[place] [phone] Me dical VICTORY 198 [facility] 2020-08-26 2020-08-26 Ancillary Anand Hughes [facility] 1.2. 840.114 [id number] Univers 09:05:09 09:50:09 Visit Gasper Armenta 350.1.13.10 it[place] of [place] 4.[place].2.[place] [phone] Nm dical nal 178 [facility] 2020-08-26 2020-08-[address] [facility] [id number] -[id number] Univers 09:30:00 09:30:00 [id number] [facility] 2020-08-26 2020-08-[address] [facility] [id number] Univers 09:30:00 09:30:00 GASPER [facility] 2020-08-20 2020-08-20 [facility] [id number]-20 Univers 13:00:00 13:00:00 PILO ity [facility] 2020-08-12 2020-08-[address] [facility] [id number] -[id number] Univers 14:00:00 14:00:00 [id number] [facility] 2020-08-12 2020-08-12 [facility] [id number] Univers 14:00:00 14:00:00 GASPER [facility] 2020-08-07 2020-08-07 Outpatient R [facility] [id number] A-20 Univers 16:30:00 16:30:00 PILO [id number] [facility] 2020-08-07 2020-08-07 Outpatient R [facility] [id number] Univers 11:30:00 11:30:00 PILO [facility] 2020-08-04 2020-08-04 Outpatient STLMLC [facility]ML[facility] [id number] [facility] 00:[facility]:00 Angelique telles Outpati ent Clinics 2020-07-31 2020-07-31 Ancillary Anand Hughes [facility] 1.2. 840.114 [id number] Univers 10:09:51 10:54:51 Visit Gasper Armenta 350.1.13.10 [facility] 4.2.7.2.686 Kaushik brown Professio [phone] Nm dical [address] 2020-07-31 2020-07-[address] [facility] [id number] -[id number] Univers 10:30:00 10:30:00 [id number] [facility] 2020-07-30 2020-07-30 [facility] 1.2.840.114 [id number] Univers 13:17:45 23:59:00 Encounter Gasper SPECIALTY 350.1.13.10 ity of CARE 4.2.7.2.686 [facility] CENTER AT [phone] Nm dicverona CARRIONY 809 [facility] 2020-07-30 2020-07-30 Out[facility] [id number] 9A-20 Univers 14:00:00 14:00:00 GASPER ity [facility] 2020-07-30 2020-07-30 Outpatient [facility] [id number] Univers 14:00:00 14:00:00 GASPER [facility] 2020-07-30 2020-07-30 Office [facility] 1.2.577.101 [id number] Univers 13:09:16 13:19:16 Visit Gasper SPECIALTY 350.1.13.10 ity of CARE 4.2.7.2.686 [facility] s CENTER AT [phone] Nm zachery CARRIONY 198 [facility] 2020-07-29 2020-07-29 Outpatient [facility] [id number] 9A-20 Univers 18:55:00 18:55:00 GASPER [facility] 2020-07-29 2020-07-29 Abstract Natividad [facility] 1.2.840.114 [id number] Univers 00:00:00 00:00:00 Martínez SPECIALTY 350.1.13.10 ity of CARE 4.2.7.2.686 [facility] CENTER AT [phone] Nm zachery CARRIONY 198 [facility] 2020-07-23 2020-07-23 Outpatient [facility] [id number] A-20 Univers 14:30:00 14:30:00 PILO ity [facility] 2020-07-23 2020-07-23 Outpatient [facility] [id number] Univers 14:30:00 14:30:00 PILO [facility] 2020-07-22 2020-07-22 Ancillary Anand Hughes [facility] 1.2. 840.114 [id number] Univers 10:41:38 11:26:38 Visit Gasper Armenta 350.1.13.10 ity [place] 4.2.7.2.686 [facility] Professio [phone] Nm dical nal 178 [facility] 2020-07-22 2020-07-[address] [facility] [id number] -[id number] Univers 10:30:00 10:30:00 [facility] 2020-07-22 2020-07-22 Outpatient R KATHI, [facility] [id number] Univers 10:30:00 10:30:00 GASPER [facility] 2020-07-21 2020-07-21 Outpatient STLMLC [facility] [id number] [facility] 00:00:00 Angelique telles Outpati ent Clinics 2020-07-16 2020-07-16 [facility] [id number]-20 Univers 14:30:00 14:30:00 PILO [id number] [facility] 2020-07-16 2020-07-16 Outpatient [facility] [id number] Univers 14:30:00 14:30:00 PILO [facility] 2020-07-15 2020-07-[address] [facility] [id number] -[id number] Univers 13:00:00 13:00:00 [id number] [facility] 2020-07-09 2020-07-09 [facility] [id number] A-20 Univers 14:30:00 14:30:00 PILO [id number] y [facility] 2020-07-09 2020-07-09 Outpatient [facility] [id number] Univers 14:30:00 14:30:00 PILO [facility] 2020-07-08 2020-07-08 Ancillary Anand Hughes [facility] 1.2. 840.114 [id number] Univers 13:05:45 13:50:45 Visit Filemon [facility] 350.1.13.10 [facility] 4.2.7.2.686 Kaushik Montes [phone] Nm dical nal [address] [place] [address] 2020-07-08 2020-07-[address] [facility] [id number] -[id number] Univers 13:00:00 13:00:00 [id number] [facility] 2020-07-02 2020-07-02 Ancillary Anand Hughes [facility] 1.2. 840.114 [id number] Univers 15:42:46 16:27:46 Visit Filemon Reyes Celia [facility] 350.1.13.10 ity of [place] 4.2.7.2.686 [facility] [phone] [address] ([facility]) 2020-07-02 2020-07-02 Out[facility] [id number] A-20 Univers 14:30:00 14:30:00 PILO [id number] ity [facility] 2020-07-02 2020-07-02 Out[facility] [id number] Univers 14:30:00 14:30:00 PILO ity [facility] 2020-06-27 2020-06-27 Outpatient STLMLC STLMLC [id number] [facility] 00:00:00 Angelique telles Outpati ent Clinics 2020-06-25 2020-06-25 Ancillary Anand Hughes [facility] 1.2. 840.114 [id number] Univers 16:01:12 16:46:12 Visit Filemon Reyes [facility] 350.1.13.10 ity of [place] 4.2.7.2.686 [facility] [phone] [address] ([facility]) 2020-06-25 2020-06-[address] [facility] [id number] 9A-20 Univers 15:00:00 15:00:00 GASPER [id number] itrona [facility] 2020-06-25 2020-06-[address] [facility] [id number] Univers 15:00:00 15:00:00 GASPER rona [facility] 2020-06-25 2020-06-25 Office Failazkenny, [facility] 1.2.661.886 [id number] Univers 14:19:27 14:29:27 Visit Gasper SPECIALTY 350.1.13.10 ity of CARE 4.2.7.2.686 [facility] AT [phone] Nm juaniverona [address] 2020-06-25 2020-06-25 Orders Doctor GASPER 1.2.840.114 [id number] Univers 00:00:00 00:00:00 Only Unassigned, RY 350.1.13.10 ity of [facility] 4.2.7.2.686 [facility] [phone] [address] 2020-06-24 2020-06-[address] [facility] [id number] -[id number] Univers 09:00:00 09:00:00 ity [facility] 2020-06-24 2020-06-24 [facility]patient [facility] [id number] Univers 09:00:00 09:00:00 FILEMON [facility] 2020-06-20 2020-06-20 Out[facility] [id number] A-20 Univers 08:00:00 08:00:00 PILO ity [facility] 2020-06-20 2020-06-20 Outpatient [facility] [id number] Univers 08:00:00 08:00:00 [facility]ILO [facility] 2020-06-18 2020-06-18 Outpatient R [facility] [id number] A-20 Univers 14:00:00 14:00:00 PILO [id number] ity [facility] 2020-06-18 2020-06-18 Outpatient [facility] [id number] Univers 14:00:00 14:00:00 PILO [facility] 2020-06-11 2020-06-11 Outpatient [facility] [id number] Univers 13:30:00 13:30:00 PILO [facility] 2020-06-11 2020-06-11 Office [facility] 1.2.466.134 [id number] Univers 10:50:34 11:00:34 Visit Gasper GALLEGOS 350.1.13.10 ity of [facility] 4.2.7.2.686 [facility] AT [phone] Nm zachery [address] 2020-06-11 2020-06-11 Outpatient R [facility] [id number] 9A-20 Univers 10:30:00 10:30:00 GASPER [id number] [facility] 2020-06-11 2020-06-11 Ancillary Anand Hughes [facility] 1.2. 840.114 [id number] Univers 09:01:47 09:46:47 Visit Filemon Reyes [facility] 350.1.13.10 [place] [phone] [facility] [address] [facility] ([facility]) 2020-06-02 2020-06-03 Ancillary QuinnLucy [facility] 1.2.84 0.114 [id number] Univers 16:26:37 16:09:33 Visit Filemon Reyes PRIMARY 350.1.13.10 ity of C[place] 4[place]2.7.2.[place] [phone] [facility] [address] 2020-06-03 2020-06-03 Refill RIVER [place] 1.2.840.114 [id number] Univers 00:00:00 00:00:00 [facility] 350.1.13.10 [place] [phone] [facility] [address] 2020-06-02 2020-06-02 Office [facility] 1.2.485.925 [id number] Univers 15:09:13 16:08:29 Visit Gasper GRANT 350.1.13.10 it y of C[place] 4.2.7.2.[place] [phone] [facility] [address] 2020-06-02 2020-06-02 Outpatient R [facility] [id number] Univers 15:50:00 15:50:00 GASPER keating [facility] 2020-06-02 2020-06-[address] [facility] [id number] -[id number] Univers 08:15:00 08:15:00 [id number] ity [facility] 2020-06-02 2020-06-[address] [facility] [id number] Univers 08:15:00 08:15:00 FILEMON ity [facility] 2020-06-02 2020-06-02 Outpatient STLMLC [facility]ML[facility] [id number] [facility] 00:00:00 Angelique Grace ent Clinics 2020-05-15 2020-05-15 Hospital Brisa Armenta 1.2.840.114 [id number] Univers 09:27:00 18:45:00 Encounter Gasper Jasso 350.1.13.10 ity of Hospital 4.2.7.2.686 Tez as [id number] [facility] [address] 2020-05-13 2020-05-13 Laboratory Only, Adc Test [facility] 1.2.840. 114 [id number] Univers 11:37:23 11:55:23 Only Drew Aggarwal 350.1.13.10 ity [facility] 4.2.7.2.686 [facility] [phone] [facility] [address] 2020-05-13 2020-05-[address] [facility] [id number] Univers 11:30:00 11:30:00 [id number] ity of [facility] 2020-05-13 2020-05-[address] [facility] [id number] Univers 11:30:00 11:30:00 ity of [facility] 2020-05-05 2020-05-05 [facility] 1.2.840.114 [id number] Univers 14:58:04 23:59:00 Encounter [facility] [id number] ity [place] [id number] Nm dical [address] 2020-05-05 2020-05-05 Office [facility] [id number] Univers 14:38:00 16:31:29 Visit [facility] 350.1.13.10 it y [place]2.[place] [id number] Nm dical [address] 2020-05-05 2020-05-05 Outpatient R [facility] [id number] Univers 14:30:00 14:30:00 [place] keating of [facility] 2020-05-05 2020-05-05 [facility] [id number] Univers 10:00:00 10:00:00 NEO [id number] ity of [facility] 2020-05-05 2020-05-05 [facility] [id number] Univers 10:00:00 10:00:00 NEO [place] of [facility] 2020-04-30 2020-04-30 [facility] 1.2.840.114 [id number] Univers 14:49:11 23:59:00 Encounter [facility] 350.1.13.10 ity of Surgical 4.2.7.2.686 [place] Specialti [id number] Me dical es 8[address] [facility] 2020-04-30 2020-04-30 [facility] [id number] Univers 15:00:00 15:00:00 [facility] 2020-04-30 [facility] [id number] [employer] 14:43:50 14:58:50 Visit [facility] [id number] it y of Surgical [id number] Tez as Specialti [phone] Me dical es 198 [facility] 2020-04-22 2020-04-22 [facility] [id number] [facility] 16:07:00 16:07:00 [employer] [facility] l Medicine Outpati ent Clinics 2020-03-10 2020-03-10 [facility] [id number] [address] 14:12:00 14:12:00 [facility] [facility] Medicine l Medicine Outpati ent Clinics 2020-02-18 2020-02-18 [facility] [id number] 16:18:00 16:18:00 [facility] [employer] [facility] Medicine l Medicine Outpati ent Clinics 2020-02-06 2020-02-06 [facility] [id number] 13:37:00 13:37:00 t [facility] [employer] [facility] Medicine l Medicine Outpati ent Clinics 2020-02-04 2020-02-04 [facility] [id number] 01:42:00 01:42:00 [facility] l Medicine Outpati ent Clinics 2020-01-31 2020-01-31 [facility] [id number] 14:20:00 14:20:00 [facility] l Medicine Outpati ent Clinics 2020-01-30 2020-01-30 [facility] [id number] 14[facility]10:00 14:10:00 t [facility] Medicine Outpati ent Clinics 2019-12-03 2019-12-03 [facility] [id number] 16:36:00 16:36:00 t [facility] l Medicine Outpati ent Clinics 2019-11-18 2019-11-18 [facility] [id number] 13:03:00 13:03:00 t [facility] l Medicine Outpati ent Clinics 2019-11-12 2019-11-12 [facility] [id number] 13[facility]39:00 13:39:00 t [facility] l Medicine Outpati ent Clinics 2019-10-31 2019-10-31 [facility] [id number] 13:30:00 13:30:00 t [facility] l Medicine Outpati ent Clinics 2019-09-03 2019-09-03 [facility] [id number] 16:31:00 16:31:00 t [facility] l Medicine Outpati ent Clinics 2019-07-31 2019-07-31 [facility] [id number] 16:41:00 16:41:00 t [facility] Medicine Outpati ent Clinics 2019-07-28 2019-07-28 [facility] [id number] 02:30:00 02:30:00 t [facility] l Medicine Outpati ent Clinics 2019-07-27 2019-07-27 [facility] [id number] 16:20:00 16:20:00 t [facility] l Medicine Outpati ent Clinics 2019-07-04 2019-07-04 [facility] [id number] 08:55:00 08:55:00 t [facility] l Medicine Outpati ent Clinics 2019-06-11 2019-06-11 [facility] [id number] 09:00:00 09:00:00 t [facility] Medicine Outpati ent Clinics 2019-06-07 2019-06-07 [facility] [id number] 11:00:00 11:00:00 t [facility] Medicine Outpati ent Clinics 2019-06-05 2019-06-05 [facility] [id number] 08:30:00 08:30:00 t [facility] Medicine Outpati ent Clinics 2019-05-10 2019-05-10 [facility] [id number] 08:30:00 08:30:00 t [facility] Medicine Outpati ent Clinics 2019-05-02 2019-05-02 [facility] [id number] 11:27:00 11:27:00 t [facility] Medicine Outpati ent Clinics 2019-04-17 2019-04-17 [facility] [id number] 16:14:00 16:14:00 t [facility] Medicine Outpati ent Clinics 2019-03-26 2019-03-26 [facility] [id number] 09:22:00 09:22:00 t [facility] Medicine Outpati ent Clinics 2019-03-09 2019-03-09 [facility] [id number] 09:45:00 09:45:00 t [facility] Medicine Outpati ent Clinics 2019-03-01 2019-03-01 [facility] [id number] 12:06:00 12:06:00 t [facility] Medicine Outpati ent Clinics 2019-02-20 2019-02-20 [facility] [id number] 14:01:00 14:01:00 [facility] Medicine Outpati ent Clinics 2019-02-08 2019-02-08 [facility] [id number] 13:15:00 13:15:00 [facility] Medicine Outpati ent Clinics 2019-02-06 2019-02-06 [facility] [id number] 13:59:00 13:59:00 [facility] Medicine Medicine Outpati ent Clinics 2018-12-27 2018-12-27 [facility] [id number] 13:30:00 13:30:00 [facility] Medicine Medicine Outpati ent Clinics 2018-04-26 2018-04-26 Outpatient [facility] [id number] [employer] 00:00:00 00:00:00 [facility] 2018-03-31 2018-03-31 Outpatient [facility] [id number] [employer] 00:00:00 00:00:00 [facility] 2018-03-08 2018-03-08 Outpatient [facility] [id number] [employer] 00:00:00 00:00:00 [facility] 2018-02-24 2018-02-24 Outpatient [facility] [id number] [place] 00:00:00 00:00:00 [facility] 2018-02-24 2018-02-24 Outpatient [facility] [id number] [employer] 00:00:00 00:00:00 [facility] 2018-02-09 2018-02-09 Outpatient [facility] [id number] [place] 13:36:45 13:36:45 [facility] 2018-02-09 2018-02-09 Outpatient [facility] [id number] [employer] 10:28:28 10:28:28 [facility] 2018-01-19 2018-01-19 Outpatient [facility] [id number] [place] 00:00:00 00:00:00 [facility] 2018-01-19 2018-01-19 Outpatient [facility] [id number] [place] 00:00:00 00:00:00 [facility] 2018-01-09 2018-01-09 Outpatient [facility] [id number] [place] 13:25:35 13:25:35 Health 2017-12-27 2017-12-27 Outpatient [facility] [id number] [place] 00:00:00 00:00:00 [facility] 2017-12-20 2017-12-20 Outpatient [facility] [id number] [place] 00:00:00 00:00:00 [facility] 2017-12-15 2017-12-15 Outpatient [facility] [id number] [place] 00:00:00 00:00:00 [facility] 2017-12-06 2017-12-06 Outpatient [facility] [id number] [place] 08:10:51 08:10:51 [facility] 2017-12-05 2017-12-05 Outpatient [facility] [id number] [place] 05:30:00 05:30:00 [facility] 2017-12-05 2017-12-05 Outpatient [facility] [id number] [place] 00:00:00 00:00:00 [facility] 2017-12-01 2017-12-01 Outpatient [facility] [id number] [place] 08:19:47 08:19:47 [facility] 2017-12-01 2017-12-01 Outpatient [facility] [id number] [place] 00:00:00 00:00:00 [facility] 2017-12-01 2017-12-01 Outpatient [facility] [id number] [place] 00:00:00 00:00:00 [facility] 2017-11-29 2017-11-29 Outpatient [facility] [id number] [place] 00:00:00 00:00:00 [facility] 2017-11-23 2017-11-23 Outpatient [facility] [id number] [place] 09:49:20 09:49:20 [facility] 2017-11-23 2017-11-23 Outpatient [facility] [id number] [place] 00:00:00 00:00:00 [facility] 2017-11-18 2017-11-18 Outpatient [facility] [id number] [place] 10:51:59 10:51:59 [facility] 2017-11-14 2017-11-14 Outpatient [facility] [id number] [place] 10:23:03 10:23:03 [facility] 2017-10-20 2017-10-20 Outpatient [facility] [id number] [place] 00:00:00 00:00:00 [facility] 2017-09-26 2017-09-26 Outpatient [facility] [id number] [place] 13:09:30 13:09:30 [facility] 2017-09-26 2017-09-26 Outpatient [facility] [id number] [place] 09:55:34 09:55:34 [facility] 2017-09-23 2017-09-23 Outpatient [facility] [id number] [place] 08:54:23 08:54:23 [facility] 2017-08-09 2017-08-09 Outpatient [facility] [id number] [place] 08:08:19 08:08:19 Health 2017-08-03 2017-08-03 Outpatient [facility] [id number] [place] 15:21:14 15:21:14 Health 2017-07-05 2017-07-05 Outpatient [facility] [id number] [place] 13:54:48 13:54:48 Health 2017-06-27 2017-06-27 Outpatient [facility] [id number] [place] 00:00:00 00:00:00 Health 2017-06-09 2017-06-09 Outpatient [facility] [id number] [place] 00:00:00 00:00:00 Health 2017-04-27 2017-04-27 Outpatient [facility] [id number] [place] 00:00:00 00:00:00 Health 2017-04-11 2017-04-11 Outpatient [facility] [id number] [place] 00:00:00 00:00:00 [facility] 2017-01-06 2017-01-06 Outpatient [facility] [id number] [place] 13:59:34 13:59:34 Health 2017-01-06 2017-01-06 Outpatient [facility] [id number] [place] 12:59:46 12:59:46 Health 2016-11-12 2016-11-12 Outpatient [facility] [id number] [place] 12:46:26 12:46:26 Health Results Test Description Test Test Results Result Source Time Comments Comments XR WRIST 3+ VW 2020-12- Stable postop changes of [facility] LEFT 05 the distal left radius [facility] 21:54:35 and ulna. Chronic Branch appearingremodeling of the distal left radius is stable, cannot exclude chronicosteomyelitis. Persistent left wrist soft tissue swelling. RL: 7000 Patient name: RACHEL MCBRIDEB: 1955 65 years EXAMINATION: XR WRIST 3+ VW LEFT Ordering Physician: GASPER ARMENTA CLINICAL HISTORY:s/p ORIF COMPARISON:10/22/2020 TECHNIQUE:Frontal, oblique, and lateral views of the left wrist performed FINDINGS:Stable postop changes of the distal left radius and ulna with stablealignment of the hardware. Chronic appearing remodeling of the distal leftradius is stable. Overall osteopenia is stable. No acute fracture ordislocation. Persistent soft tissue swelling of the wrist. Arterialvascular calcification.. [facility], Radiant Results Inft User - 12/24/2020 4:55 PM CDTPatient name: RACHEL MCBRIDEB: 1955 65 years EXAMINATION: XR WRIST 3+ VW LEFTOrdering Physician: GASPER ARMENTA CLINICAL HISTORY:s/p ORIF COMPARISON:10/22/2020TECH NIQUE:Frontal, oblique, and lateral views of the left wrist performedFINDINGS:Stable postop changes of the distal left radius and ulna with stablealignment of the hardware. Chronic appearing remodeling of the distal leftradius is stable. Overall osteopenia is stable. No acute fracture ordislocation. Persistent soft tissue swelling of the wrist. Arterialvascular calcification..IMPRESSION Stable postop changes of the distal left radius and ulna. Chronic appearingremodeling of the distal left radius is stable, cannot exclude chronicosteomyelitis. Persistent left wrist soft tissue swelling.RL: 7000 ULT ADULT 2020-12- Occupational Therapy [employer] [facility] OCCUPATIONAL 05 Note:Consult received, [facility] 00:00:00 epic chart reviewed, and Branch OT evaluation completed. Please refer to evaluation details in progress note section. Pt educated on home program consisting of: orthotic training. ?Will continue to see pt for hand/digital ROM. XR WRIST 3+ VW 2020-10- Stable appearance of [employer] LEFT 03 distal radius and ulnar [facility] 21:00:56 fractures. Preliminary [facility] Report Dictated by Resident: Mary Armendariz MD., have reviewed this study and agree with the abovereport.EXAM: XR WRIST 3+ VW LEFT HISTORY: 65 years-old Female post op COMPARISON: Left wrist radiographs dated 08/27/2020, 07/30/2020 FINDINGS: Radiographs of the left wrist were obtained. Hardware fixation of a healingdistal radial metaphyseal fracture with intra-articular extension is seen.The hardware alignment is maintained and no hardware complication or acutefracture is noted. Hardware fixation of a healing distal ulnar metaphysealfracture is demonstrated. The alignment is maintained and no acute fractureis seen. Mild lucency about the middle ulnar fixation screw is unchanged.Soft tissue swelling is improved. Diffuse osteopenia and vascularcalcifications are present. [facility], Radiant Results Inft User - 10/22/2020 3:02 PM CSTEXAM: XR WRIST 3+ VW LEFTHISTORY: 65 years-old Female post op COMPARISON: Left wrist radiographs dated 08/27/2020, 07/30/2020FINDINGS:Radiogr aphs of the left wrist were obtained. Hardware fixation of a healingdistal radial metaphyseal fracture with intra-articular extension is seen.The hardware alignment is maintained and no hardware complication or acutefracture is noted. Hardware fixation of a healing distal ulnar metaphysealfracture is demonstrated. The alignment is maintained and no acute fractureis seen. Mild lucency about the middle ulnar fixation screw is unchanged.Soft tissue swelling is improved. Diffuse osteopenia and vascularcalcifications are present.IMPRESSIONStable appearance of distal radius and ulnar fractures. Preliminary Report Dictated by Resident: Mary Frank MD., have reviewed this study and agree with the abovereport. XR WRIST 3+ VW 2020-08- Stable hardware fixation [facility] 06 of healing distal radial [facility] 19:31:56 and ulnar fractures. Bran ch EXAM: XR WRIST 3+ VW LEFT HISTORY: clinic COMPARISON: 07/30/2020 FINDINGS: Imaging of the left wrist demonstrates stable percutaneous pin and andplate fixation hardware securing a comminuted distal radial metaphysealfracture with intra-articular extension. Articular step-off deformity atthe radial articular surface persists. Hardware alignment appearsunchanged. Plate fixation hardware secures a healing distal ulnarmetaphyseal fracture with progressive partially bridging callus.Perihardware lucency is seen about the mid ulnar plate fixation screw. Softtissue swelling and osteopenia are present. Vascular calcifications arepresent. [facility], Radiant Results Inft User - 08/27/2020 1:33 PM CSTEXAM:XR WRIST 3+ VW LEFTHISTORY:clinic COMPARISON:07/30/2020FINDI NGS: Imaging of the left wrist demonstrates stable percutaneous pin and andplate fixation hardware securing a comminuted distal radial metaphysealfracture with intra-articular extension. Articular step-off deformity atthe radial articular surface persists. Hardware alignment appearsunchanged. Plate fixation hardware secures a healing distal ulnarmetaphyseal fracture with progressive partially bridging callus.Perihardware lucency is seen about the mid ulnar plate fixation screw. Softtissue swelling and osteopenia are present. Vascular calcifications arepresent.IMPRESSIONStab le hardware fixation of healing distal radial and ulnar fractures. XR WRIST 3+ VW 2020-07-22. ?No hardware [facility] LEFT 09 complication. [facility] 19:37:34 periosteal new bone Branc h formation. RL: 1105 HISTORY: ?clinic ? left wrist fracture COMPARISON: ?None FINDINGS: 3 views of the left wrist show screw, plate, and wire fixation of thedistal radius and ulna. Hardware is intact. There are dorsal fracturefragments which are fixated on the lateral view. Bones are demineralized.There is extensive soft tissue swelling. The carpal bones grossly intact. There is minimal periosteal new bone formation. [facility], Radiant Results Inft User - 07/30/2020 1:38 PM CSTHISTORY: clinic left wrist fractureCOMPARISON: NoneFINDINGS:3 views of the left wrist show screw, plate, and wire fixation of thedistal radius and ulna. Hardware is intact. There are dorsal fracturefragments which are fixated on the lateral view. Bones are demineralized.There is extensive soft tissue swelling. The carpal bones grossly intact.There is minimal periosteal new bone formation.IMPRESSION1. No hardware complication. Minimal periosteal new bone formation.RL: 1105 GLUCOSE (AUTOMATED) 2020-05-15 22:58:00 Test Item Value Reference Range Interpretation Comme nts POCT GLU (test code = [id number]) 130 mg/dL 70-110 H Lab Interpretation (test code = 67277-6) [facility]normal [facility] ([facility]-REPORTABLE)2020-05-15 22:40:12 These images do not require a Radiology diagnostic report.[facility])2020-05-15 15:19:00 Test Item Value Reference Range Interpretation Comments POCT GLU (test code = [id number]) 141 mg/dL 70-110 H Lab Interpretation (test code = Abnormal 54214-2) [facility]+ VW [id number] 21:55:27 Unchanged alignment of the distal radius fracture. Unchanged distal ulnar fracture. EXAM: XR WRIST 3+ VW LEFT HISTORY: L Wrist Fracture COMPARISON: 04/26/2020. FINDINGS: The splint has been removed. Alignment of the impacted intra-articulardistal radius fracture is grossly unchanged with dorsal angulat ion of thedistal radial articular surface and splaying of the dominant fracturefragments. The ulnar styloid process fracture is similar in appearance.Soft tissue swelling persists. Osteopenia is noted.Vascular calcificationsare seen. Mild widening of the scapholunate interval is seen. [facility], Radiant Results Inft User - 05/05/2020 4:56 PM CDTEXAM:XR WRIST 3+ VW LEFTHISTORY:L Wrist Fracture COMPARISON:04/26/2020.FINDINGS: The splint has been removed. Alignment of the impacted intra-articulardistal radius fracture is grossly unchanged with dorsal angulation of thedistal radial articular surface and splaying of the dominant fracturefragments. The ulnar styloid process fracture is similar in appearance.Soft tissue swelling persists. Osteopenia is noted. Vascular calcificationsare seen. Mild widening ofthe scapholunate interval is seen.IMPRESSIONUnchanged alignment of the distal radius fracture.Unchanged distal ulnar fracture.[facility]
[2021-08-04] MEDS ORDERED: ONDANSETRON 4 MG/2 ML VIAL ONE (16:11)
[2021-08-04 16:25] LABS: Absolute Lymphocytes (CBC) 1.9 K/uL (0.7-4.9); Basophils % 0.3 % (0-1.3); Hematocrit 41.2 % (36.0-45.0); Lymphocytes % 27.6 % (15.3-44.8); MPV 8.6 fL (7.6-11.3); RBC Red Blood Cell Count 4.38 M/uL (3.86-4.86)
[2021-08-04 16:25] LABS: Urine Blood Negative (Negative); Urine Glucose 3+ (Negative); Urine Protein Negative (Negative); Urine Specific Gravity 1.015 (1.005-1.030); Urine pH 5.5 (5.0-7.0)
[2021-08-04 16:37] LABS: Albumin 3.8 g/dL (3.4-5.0); Bilirubin Direct 0.1 mg/dL (0-0.2); Bilirubin Total 0.4 mg/dL (0.2-1.0); Potassium 4.1 mmol/L (3.5-5.1); Protein, Total 8.1 g/dL (6.4-8.2)
[2021-08-04 16:57] LABS: SARS-COV-2 RT PCR NEGATIVE (NEGATIVE)
[2021-08-04 16:58] LABS: Urine Bacteria <20 /HPF (<20); Urine RBC <5 /HPF (NONE SEEN)
[2021-08-04] MEDS ORDERED: NA CHLORIDE 0.9% 1,000 ML ONE (17:02)
[2021-08-04] MEDS ORDERED: FENTANYL CITR 100 MCG/2 ML ONE (17:11)
--- NOTE | 2021-08-04 17:36 | ER ---
Nurse's Notes [facility] Name: Indira Chavis Age: 66 yrs Sex: Female : 1955 Arrival Date: 08/04/2021 Time: 13:00 Bed DIS2 Private MD: Diagnosis: Nausea Presentation: 08/04 13:33 Chief complaint: Patient states: general body aches and generally not feeling well. jh6 states decreased kidney function a mo ago but has not been able to get into see the dr. Coronavirus screen: Vaccine status: Patient reports receiving the 2nd dose of the covid vaccine. Ebola Screen: Patient denies travel to an Ebola-affected area in the 21 days before illness onset. Initial Sepsis Screen: Does the patient meet any 2 criteria? No. Patient's initial sepsis screen is negative. Does the patient have a suspected source of infection? No. Patient's initial sepsis screen is negative. Risk Assessment: Do you want to hurt yourself or someone else? Patient reports no desire to harm self or others. Onset of symptoms was July 22, 2021. 13:33 Method Of Arrival: Ambulatory [facility] 13:33 Acuity: [place] 3 [facility] Triage Assessment: 13:37 General: Appears in no apparent distress. uncomfortable, obese, Behavior is calm, jh6 cooperative. Pain: reports that body aches are all over. GI: Reports cramping, diarrhea, nausea. Historical: - Allergies: 13:36 No Known Allergies; [facility] - Immunization history:: Adult Immunizations up to date. - Social history:: Smoking status: Patient denies any tobacco usage or history of. Screenin:20 Abuse screen: Denies threats or abuse. Denies injuries from another. Nutritional iw screening: No deficits noted. Tuberculosis screening: No symptoms or risk factors identified. Fall Risk IV access (20 points). Assessment: 16:00 General: Appears in no apparent distress. Behavior is calm, cooperative. Pain: iw Complains of pain in left lower back. Neuro: Level of Consciousness is awake, alert, obeys commands, Oriented to person, place, time, situation, Moves all extremities. Full function. Cardiovascular: Patient's skin is warm and dry. Respiratory: Respiratory effort is even, unlabored, Respiratory pattern is regular, symmetrical. GI: Abdomen is non-distended, obese, Reports anorexia, nausea. Derm: Skin is fragile, Skin is pink, warm \T\ dry. Musculoskeletal: Range of motion: intact in all extremities. 17:19 Reassessment: Patient appears in no apparent distress at this time. Patient and/or iw family updated on plan of care and expected duration. Pain level reassessed. Patient is alert, oriented x 3, equal unlabored respirations, skin warm/dry/pink. pt given water, VSS, fluids infusing, pt given warm blankets , call light within reach. 18:16 Reassessment: Pt awaiting her daughter to pick her up. ss Vital Signs: 13:33 BP 132 / 61; Pulse 66; Resp 17; Temp 98.6; Pulse Ox 100% ; Weight 85.73 kg; Height 5 jh6 ft. 2 in. (157.48 cm); Pain 7/10; 17:20 BP 161 / 62; Pulse 86; Resp 16; Temp 98.9; Pulse Ox 97% on R/A; iw 13:33 Body Mass Index 34.57 (85.73 kg, 157.48 cm) 6 ED Course: 13:00 Patient arrived in ED. ds1 13:36 Triage completed. jh6 13:38 Arm band placed on right wrist. jh6 15:00 Colin Martinez PA is PHCP. jr8 15:00 London Madrid MD is Attending Physician. jr8 15:07 Dana Anthony, KELY is Primary Nurse. iw 15:39 COVID swab sent to lab. kj1 16:00 Patient has correct armband on for positive identification. iw 16:05 Initial lab(s) drawn, by md, sent to lab. Inserted saline lock: 22 gauge in left iw antecubital area, using aseptic technique. Blood collected. 18:19 No provider procedures requiring assistance completed. IV discontinued, intact, iw bleeding controlled, No redness/swelling at site. Pressure dressing applied. Administered Medications: 16:25 Drug: Zofran (Ondansetron) 4 mg Route: IVP; Site: left antecubital; iw 18:20 Follow up: Response: No adverse reaction iw 17:04 Drug: NS 0.9% 1000 ml Route: IV; Rate: 1000 ml; Site: left antecubital; iw 18:20 Follow up: IV Status: Order to discontinue infusion iw 17:17 Drug: fentaNYL (PF) 25 mcg Route: IVP; Site: left antecubital; iw 18:20 Follow up: Response: No adverse reaction; Pain is decreased Outcome: 17:36 Discharge ordered by MD. [place] 18:19 Discharged to home via wheelchair, with family. iw 18:19 Condition: good 18:19 Discharge instructions given to patient, family, Instructed on discharge instructions, follow up and referral plans. medication usage, Demonstrated understanding of instructions, follow-up care, medications, Prescriptions given X 1. 18:34 Patient left the ED. ss Signatures: Wendy Miranda ds1 Dana Anthony RN RN Chey Carolina RN RN Colin Martinez PA PA jr8 Tereza Jordan1 Nai Brower RN RN 6 Corrections: (The following items were deleted from the chart) 13:36 13:36 PMHx: CHF; [place] [id number] 13:36 13:36 PMHx: Diabetes - IDDM; [place] [id number] 13:36 13:36 PMHx: High Cholesterol; [place] [id number] 13:36 13:36 PMHx: Hypertension; [place] [address] 13:36 13:36 PMHx: CAD; [place] [address] 13:36 13:36 PMHx: BLINDNESS; [place] [address] 13:36 13:36 PMHx: Hypothyroidism; [place] [id number]
--- NOTE | 2021-08-04 17:36 | EDPHYS ---
Physician Documentation [facility] Name: Indira Chavis Age: 66 yrs Sex: Female : 1955 Arrival Date: 08/04/2021 Time: 13:00 Bed DIS2 Private MD: ED Physician London Madrid HPI: 08/04 16:56 This 66 yrs old Female presents to ER via Ambulatory with complaints of Nausea, Chills. jr8 16:56 Associated signs and symptoms: The patient has no apparent associated signs or jr8 symptoms. Severity of symptoms: At their worst the symptoms were moderate in the emergency department the symptoms are unchanged. The patient has not experienced similar symptoms in the past. The patient has not recently seen a physician. This is a 66-year-old female patient that presented to the emergency room with several day history of nausea and chills. Stated that she has had concurrent mixed constipation with diarrhea as well. Denies any other symptoms at this time. Stated that she has not been able to get it to go away with [id number] medications. Family stated that she has been more anxious lately as well.. Historical: - Allergies: 13:36 No Known Allergies; jh6 - Immunization history:: Adult Immunizations up to date. - Social history:: Smoking status: Patient denies any tobacco usage or history of. ROS: 16:56 Eyes: Negative for injury, pain, redness, and discharge, ENT: Negative for injury, jr8 pain, and discharge, Neck: Negative for injury, pain, and swelling, Cardiovascular: Negative for chest pain, palpitations, and edema, Respiratory: Negative for shortness of breath, cough, wheezing, and pleuritic chest pain, Back: Negative for injury and pain, MS/Extremity: Negative for injury and deformity, Skin: Negative for injury, rash, and discoloration, Neuro: Negative for headache, weakness, numbness, tingling, and seizure. 16:56 Abdomen/GI: Positive for nausea, diarrhea, constipation, Negative for abdominal pain, vomiting. Exam: 16:56 Constitutional: This is a well developed, well nourished patient who is awake, alert, jr8 and in no acute distress. Cardiovascular: Regular rate and rhythm with a normal S1 and S2. No gallops, murmurs, or rubs. Normal PMI, no JVD. No pulse deficits. Respiratory: Lungs have equal breath sounds bilaterally, clear to auscultation and percussion. No rales, rhonchi or wheezes noted. No increased work of breathing, no retractions or nasal flaring. Abdomen/GI: Soft, non-tender, with normal bowel sounds. No distension or tympany. No guarding or rebound. No evidence of tenderness throughout. Back: No spinal tenderness. No costovertebral tenderness. Full range of motion. Skin: Warm, dry with normal turgor. Normal color with no rashes, no lesions, and no evidence of cellulitis. MS/ Extremity: Pulses equal, no cyanosis. Neurovascular intact. Full, normal range of motion. Neuro: Awake and alert, GCS 15, oriented to person, place, time, and situation. Motor strength 5/5 in all extremities. Sensory grossly intact. Vital Signs: 13:33 BP 132 / 61; Pulse 66; Resp 17; Temp 98.6; Pulse Ox 100% ; Weight 85.73 kg; Height [address] [facility] ft. 2 in. (157.48 cm); Pain 7/10; 17:20 BP 161 / 62; Pulse 86; Resp 16; Temp 98.9; Pulse Ox 97% on R/A; iw 13:33 Body Mass Index 34.57 (85.73 kg, 157.48 cm) [facility] MDM: 15:03 Patient medically screened. [facility] 17:35 Data reviewed: vital signs, nurses notes, lab test result(s). Data interpreted: Pulse jr8 oximetry: on room air is 97 %. Interpretation: normal. Counseling: I had a detailed discussion with the patient and/or guardian regarding: the historical points, exam findings, and any diagnostic results supporting the discharge/admit diagnosis, lab results, the need for outpatient follow up, a family practitioner, to return to the emergency department if symptoms worsen or persist or if there are any questions or concerns that arise at home. ED course: Discussed with patient that there is no acute findings on labs at this time. Would recommend that she follow-up with her family practice if she continues to have nausea and I will send her home with nausea medicine. If she were to worsen or have change or additional symptoms to come back for further evaluation. Patient good with this at this time.. 08/04 15:15 Order name: COVID-19/FLU A+B (Document "Date of Onset" if Symptomatic); Complete Time: iw 17:08/04 15:50 Order name: Basic Metabolic Panel; Complete Time: 17:00 08/04 15:50 Order name: CBC with Diff; Complete Time: 17:00 08/04 15:50 Order name: Hepatic Function; Complete Time: 17:08/04 15:50 Order name: Lipase; Complete Time: 17:00 08/04 15:50 Order name: Urine Microscopic Only; Complete Time: 17:00 08/04 15:50 Order name: IV Saline Lock; Complete Time: 16:12 08/04 15:50 Order name: Labs collected and sent; Complete Time: 16:12 08/04 15:50 Order name: Urine Dipstick-Ancillary (obtain specimen); Complete Time: 16:25 08/04 15:51 Order name: Magnesium; Complete Time: 17:00 08/04 16:24 Order name: Urine Dipstick-Ancillary; Complete Time: 17:00 EDMS Administered Medications: 16:25 Drug: Zofran (Ondansetron) 4 mg Route: IVP; Site: left antecubital; iw 18:20 Follow up: Response: No adverse reaction iw 17:04 Drug: NS 0.9% 1000 ml Route: IV; Rate: 1000 ml; Site: left antecubital; iw 18:20 Follow up: IV Status: Order to discontinue infusion iw 17:17 Drug: fentaNYL (PF) 25 mcg Route: IVP; Site: left antecubital; iw 18:20 Follow up: Response: No adverse reaction; Pain is decreased iw Disposition: 19:00 Co-signature as Attending Physician, London Madrid MD I agree with the assessment and rn plan of care. Attestation: The patient's history, exam findings, diagnostics, and a summary of any interventions or procedures was reviewed in detail with Colin WING. Disposition Summary: 08/04/21 17:36 Discharge Ordered Location: Home jr8 Problem: new jr8 Symptoms: have improved jr8 Condition: Stable jr8 Diagnosis - Nausea jr8 Followup: jr8 - With: Private Physician - When: 2 - 3 days - Reason: Recheck today's complaints, Continuance of care, Re-evaluation by your physician Discharge Instructions: - Discharge Summary Sheet jr8 - Nausea, Adult jr8 Forms: - Medication Reconciliation Form jr8 - Thank You Letter jr8 - Antibiotic Education jr8 - Prescription Opioid Use jr8 Prescriptions: - Zofran 4 mg Oral Tablet - take 1 tablet by ORAL route every 12 hours As needed; 20 tablet; Refills: 0, jr8 Product Selection Permitted Signatures: Dispatcher [employer] Dana Diane RN RN London Madrid MD MD rn Smirch, Shelby, RN RN ss Roszak, Josh, PA PA jr8 Nai Brower RN RN [facility] Corrections: (The following items were deleted from the chart) 13:36 13:36 PMHx: CHF; [place] [id number] 13:36 13:36 PMHx: Diabetes - IDDM; [place] [id number] 13:36 13:36 PMHx: High Cholesterol; [place] [address] 13:36 13:36 PMHx: Hypertension; [place] [address] 13:36 13:36 PMHx: CAD; [place] [address] 13:36 13:36 PMHx: BLINDNESS; [place] [address] 13:36 13:36 PMHx: Hypothyroidism; [place] [address] 16:58 16:56 This is a 66-year-old female patient that presented to the emergency room with jr8 several day history of nausea and chills. Denies any other symptoms at this time. Stated that she has not been able to get it to go away with [id number] medications. Family stated that she has been more anxious lately as well.. jr8
[2021-08-04 18:51] VITALS: BP 161/62; TEMP 98.9; O2SAT 97
== END 2021-08-04 18:34 | disposition home or self-care (01) ==
LOC: ER 12:54
DX: R11.0 Nausea (principal); R19.7 Diarrhea, unspecified; Z20.822 Contact with and (suspected) exposure to COVID-19
CPT/HCPCS: 96361; 85025; 80048; 36415; 83735; 80076; 83690; 0240U; 96375; 96374; 99284; J3010; J7030; J2405; 81003; 81015

== ENCOUNTER 2022-06-05 20:34 | Inpatient (IN) | payer OTHER ==
--- OUTSIDE RECORDS SUMMARY | 2022-06-05 20:50 | XMS REPORT | Continuity of Care Document ---
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 tablet 19:27: daily. [place] [address] Medical Branch insulin NPH Yes 65U inject 65 U nivers human 1-06 Units ity of isophane 19:27: [place] ([place] N 16 skin Medical [place]) daily. Branch insulin 0 Yes 20U Inject 20 Unive rs regular, 1-06 Units as ity of human 19:27: directed 3 [place] (NOVOLIN R 16 (three) Medica l INJECTION) times Branch daily. [place]-3-DHA Yes 1{capsu Take 1 U nivers -EPA-Fish 1-06 le} capsule by ity of Oil (FISH 19:27: mouth [place] OIL) 1,000 16 daily. Medical mg (120 Branch mg-180 mg) Cap aspirin 81 2020-0 Yes 81mg Take 81 mg U nivers mg EC 1-06 by mouth ity of tablet 19:27: daily. [place] [address] Medical Branch insulin NPH Yes 65U inject 65 U nivers human 1-06 Units ity of isophane 19:27: [place] ([place] N 16 skin [facility] [place]) daily. Branch insulin Yes 20U Inject 20 Unive rs regular, 1-06 Units as ity of human 19:27: directed 3 [place] (NOVOLIN R 16 (three) Medica l INJECTION) times Branch daily. [place]-3-DHA Yes 1{capsu Take 1 U nivers -EPA-Fish 1-06 le} capsule by ity of Oil (FISH 19:27: mouth [place] OIL) 1,000 16 daily. Medical mg (120 Branch mg-180 mg) Cap aspirin 81 2020-0 Yes 81mg Take 81 mg U nivers mg EC 1-06 by mouth ity of tablet 19:27: daily. [place] [address] Medical Branch insulin NPH Yes 65U inject 65 U nivers human 1-06 Units ity of isophane 19:27: [place] ([place]IN N 16 skin Medical [place]) daily. Branch insulin Yes 20U Inject 20 Unive rs regular, 1-06 Units as ity of human 19:27: directed 3 [place] (NOVOLIN R 16 (three) Medica l INJECTION) times Branch daily. [place]-3-DHA Yes 1{capsu Take 1 U nivers -EPA-Fish 1-06 le} capsule by ity of Oil (FISH 19:27: mouth [place] OIL) 1,000 16 daily. Medical mg (120 Branch mg-180 mg) Cap aspirin 81 2021-0 Yes 81mg Take 81 mg U nivers mg EC 1-06 by mouth ity of tablet 19:27: daily. [place] [address] Medical Branch insulin NPH Yes 65U inject 65 U nivers human 1-06 Units ity of isophane 19:27: [place] ([place] N 16 skin [facility] [place]) daily. Branch insulin Yes 20U Inject 20 Unive rs regular, 1-06 Units as ity of human 19:27: directed 3 [place] (NOVOLIN R 16 (three) Medica l INJECTION) times Branch daily. [place]-3-DHA Yes 1{capsu Take 1 U nivers -EPA-Fish 1-06 le} capsule by ity of Oil (FISH 19:27: mouth [place] OIL) 1,000 16 daily. Medical mg (120 Branch mg-180 mg) Cap aspirin 81 0 Yes 81mg Take 81 mg U nivers mg EC 1-06 by mouth ity of tablet 19:27: daily. [place] [address] Medical Branch insulin NPH Yes 65U inject 65 U nivers human 1-06 Units ity of isophane 19:27: [place] ([place] N 16 skin [facility] [place]) daily. Branch insulin Yes 20U Inject 20 Unive rs regular, 1-06 Units as ity of human 19:27: directed 3 [place] (NOVOLIN R 16 (three) Medica l INJECTION) times Branch daily. [place]-3-DHA Yes 1{capsu Take 1 U nivers -EPA-Fish 1-06 le} capsule by ity of Oil (FISH 19:27: mouth [place] OIL) 1,000 16 daily. Medical mg (120 Branch mg-180 mg) Cap aspirin 81 0 Yes 81mg Take 81 mg U nivers mg EC 1-06 by mouth ity of tablet 19:27: daily. [place] [address] Medical Branch insulin NPH Yes 65U inject 65 U nivers human 1-06 Units ity of isophane 19:27: [place] ([place] N 16 skin [facility] [place]) daily. Branch insulin Yes 20U Inject 20 Unive rs regular, 1-06 Units as ity of human 19:27: directed 3 [place] (NOVOLIN R 16 (three) Medica l INJECTION) times Branch daily. [place]-3-DHA Yes 1{capsu Take 1 U nivers -EPA-Fish 1-06 le} capsule by ity of Oil (FISH 19:27: mouth [place] OIL) 1,000 16 daily. Medical mg (120 Branch mg-180 mg) Cap aspirin 81 2020-0 Yes 81mg Take 81 mg U nivers mg EC 1-06 by mouth ity of tablet 19:27: daily. [place] [address] Medical Branch insulin NPH 0 Yes 65U inject 65 U nivers human 1-06 Units ity of isophane 19:27: [place] ([place] N 16 skin [facility] [place]) daily. Branch insulin 0 Yes 20U Inject 20 Unive rs regular, 1-06 Units as ity of human 19:27: directed 3 [place] (NOVOLIN R 16 (three) Medica l INJECTION) times Branch daily. [place]-3-DHA Yes 1{capsu Take 1 U nivers -EPA-Fish 1-06 le} capsule by ity of Oil (FISH 19:27: mouth [place] OIL) 1,000 16 daily. Medical mg (120 Branch mg-180 mg) Cap aspirin 81 2020-0 Yes 81mg Take 81 mg U nivers mg EC 1-06 by mouth ity of tablet 19:27: daily. [address] Branch insulin NPH 0 Yes 65U inject 65 U nivers human 1-06 Units ity of isophane 19:27: [place] ([place] N 16 skin [facility] [place]) daily. Branch insulin 0 Yes 20U Inject 20 Unive rs regular, 1-06 Units as ity of human 19:27: directed 3 [place] (NOVOLIN R 16 (three) Medica l INJECTION) times Branch daily. [place]-3-DHA Yes 1{capsu Take 1 U nivers -EPA-Fish 1-06 le} capsule by ity of Oil (FISH 19:27: mouth [place] OIL) 1,000 16 daily. Medical mg (120 Branch mg-180 mg) Cap aspirin 81 2020-0 Yes 81mg Take 81 mg U nivers mg EC 1-06 by mouth ity of tablet 19:27: daily. [place] [address] Medical Branch insulin NPH 0 Yes 65U inject 65 U nivers human 1-06 Units ity of isophane 19:27: [place] ([place] N 16 skin [facility] [place]) daily. Branch insulin Yes 20U Inject 20 Unive rs regular, 1-06 Units as ity of human 19:27: directed 3 [place] (NOVOLIN R 16 (three) Medica l INJECTION) times Branch daily. [place]-3-DHA Yes 1{capsu Take 1 U nivers -EPA-Fish 1-06 le} capsule by ity of Oil (FISH 19:27: mouth [place] OIL) 1,000 16 daily. Medical mg (120 Branch mg-180 mg) Cap aspirin 81 2020-0 Yes 81mg Take 81 mg U nivers mg EC 1-06 by mouth ity of tablet 19:27: daily. [address] Branch insulin NPH Yes 65U inject 65 U nivers human 1-06 Units ity of isophane 19:27: [place] ([place] N 16 skin [facility] [place]) daily. Branch insulin Yes 20U Inject 20 Unive rs regular, 1-06 Units as ity of human 19:27: directed 3 [place] (NOVOLIN R 16 (three) Medica l INJECTION) times Branch daily. [place]-3-DHA Yes 1{capsu Take 1 U nivers -EPA-Fish 1-06 le} capsule by ity of Oil (FISH 19:27: mouth [place] OIL) 1,000 16 daily. Medical mg (120 Branch mg-180 mg) Cap aspirin 81 0 Yes 81mg Take 81 mg U nivers mg EC 1-06 by mouth ity of tablet 19:27: daily. [address] Branch insulin NPH Yes 65U inject 65 U nivers human 1-06 Units ity of isophane 19:27: [place] ([place] N 16 skin [facility] [place]) daily. Branch insulin Yes 20U Inject 20 Unive rs regular, 1-06 Units as ity of human 19:27: directed 3 [place] (NOVOLIN R 16 (three) Medica l INJECTION) times Branch daily. [place]-3-DHA Yes 1{capsu Take 1 U nivers -EPA-Fish 1-06 le} capsule by ity of Oil (FISH 19:27: mouth [place] OIL) 1,000 16 daily. Medical mg (120 Branch mg-180 mg) Cap aspirin 81 2020-0 Yes 81mg Take 81 mg U nivers mg EC 1-06 by mouth ity of tablet 19:27: daily. [place] [address] Medical Branch insulin NPH Yes 65U inject 65 U nivers human 1-06 Units ity of isophane 19:27: [place] ([place] N 16 skin [facility] [place]) daily. Branch insulin 0 Yes 20U Inject 20 Unive rs regular, 1-06 Units as ity of human 19:27: directed 3 [place] (NOVOLIN R 16 (three) Medica l INJECTION) times Branch daily. [place]-3-DHA Yes 1{capsu Take 1 U nivers -EPA-Fish 1-06 le} capsule by ity of Oil (FISH 19:27: mouth [place] OIL) 1,000 16 daily. Medical mg (120 Branch mg-180 mg) Cap aspirin 81 2020-0 Yes 81mg Take 81 mg U nivers mg EC 1-06 by mouth ity of tablet 19:27: daily. [place] [address] Medical Branch insulin NPH Yes 65U inject 65 U nivers human 1-06 Units ity of isophane 19:27: [place] ([place] N 16 skin Medical [place]) daily. Branch insulin Yes 20U Inject 20 Unive rs regular, 1-06 Units as ity of human 19:27: directed 3 [place] (NOVOLIN R 16 (three) Medica l INJECTION) times Branch daily. [place]-3-DHA Yes 1{capsu Take 1 U nivers -EPA-Fish 1-06 le} capsule by ity of Oil (FISH 19:27: mouth [place] OIL) 1,000 16 daily. Medical mg (120 Branch mg-180 mg) Cap aspirin 81 2020-0 Yes 81mg Take 81 mg U nivers mg EC 1-06 by mouth ity of tablet 19:27: daily. [place] [address] Medical Branch insulin NPH Yes 65U inject 65 U nivers human 1-06 Units ity of isophane 19:27: [place] ([place] N 16 skin Medical [place]) daily. Branch insulin 0 Yes 20U Inject 20 Unive rs regular, 1-06 Units as ity of human 19:27: directed 3 [place] (NOVOLIN R 16 (three) Medica l INJECTION) times Branch daily. [place]-3-DHA Yes 1{capsu Take 1 U nivers -EPA-Fish 1-06 le} capsule by ity of Oil (FISH 19:27: mouth [place] OIL) 1,000 16 daily. Medical mg (120 Branch mg-180 mg) Cap aspirin 81 2020-0 Yes 81mg Take 81 mg U nivers mg EC 1-06 by mouth ity of tablet 19:27: daily. Medical Branch insulin NPH Yes 65U inject 65 U nivers human 1-06 Units ity of isophane 19:27: [place] ([place] N 16 skin [facility] [place]) daily. Branch insulin 0 Yes 20U Inject 20 Unive rs regular, 1-06 Units as ity of human 19:27: directed 3 [place] (NOVOLIN R 16 (three) Medica l INJECTION) times Branch daily. [place]-3-DHA Yes 1{capsu Take 1 U nivers -EPA-Fish 1-06 le} capsule by ity of Oil (FISH 19:27: mouth [place] OIL) 1,000 16 daily. Medical mg (120 Branch mg-180 mg) Cap aspirin 81 2020-0 Yes 81mg Take 81 mg U nivers mg EC 1-06 by mouth ity of tablet 19:27: daily. Medical Branch insulin NPH Yes 65U inject 65 U nivers human 1-06 Units ity of isophane 19:27: [place] ([place] N 16 skin [facility] [place]) daily. Branch insulin Yes 20U Inject 20 Unive rs regular, 1-06 Units as ity of human 19:27: directed 3 [place] (NOVOLIN R 16 (three) Medica l INJECTION) times Branch daily. [place]-3-DHA Yes 1{capsu Take 1 U nivers -EPA-Fish 1-06 le} capsule by ity of Oil (FISH 19:27: mouth [place] OIL) 1,000 16 daily. Medical mg (120 Branch mg-180 mg) Cap insulin NPH 2020-0 Yes 65U inject 65 U nivers human 1-06 Units ity of isophane 13:27: [place] ([place] N 16 skin [facility] [place]) daily. Branch insulin 0 Yes 20U Inject 20 Unive rs regular, 1-06 Units as ity of human 13:27: directed 3 [place] (NOVOLIN R 16 (three) Medica l INJECTION) times Branch daily. [place]-3-DHA Yes 1{capsu Take 1 U nivers -EPA-Fish 1-06 le} capsule by ity of Oil (FISH 13:27: mouth [place] OIL) 1,000 16 daily. Medical mg (120 Branch mg-180 mg) Cap aspirin 81 2020-0 Yes 81mg Take 81 mg U nivers mg EC 1-06 by mouth ity of tablet 13:27: daily. [address] Branch insulin NPH Yes 65U inject 65 U nivers human 1-06 Units ity of isophane 13:27: [place] ([place] N 16 skin [facility] [place]) daily. Branch insulin Yes 20U Inject 20 Unive rs regular, 1-06 Units as ity of human 13:27: directed 3 [place] (NOVOLIN R 16 (three) Medica l INJECTION) times Branch daily. [place]-3-DHA Yes 1{capsu Take 1 U nivers -EPA-Fish 1-06 le} capsule by ity of Oil (FISH 13:27: mouth [place] OIL) 1,000 16 daily. Medical mg (120 Branch mg-180 mg) Cap aspirin 81 2020-0 Yes 81mg Take 81 mg U nivers mg EC 1-06 by mouth ity of tablet 13:27: daily. [place] [address] Medical Branch insulin NPH Yes 65U inject 65 U nivers human 1-06 Units ity of isophane 13:27: [place] ([place] N 16 skin [facility] [place]) daily. Branch insulin 0 Yes 20U Inject 20 Unive rs regular, 1-06 Units as ity of human 13:27: directed 3 [place] (NOVOLIN R 16 (three) Medica l INJECTION) times Branch daily. [place]-3-DHA Yes 1{capsu Take 1 U nivers -EPA-Fish 1-06 le} capsule by ity of Oil (FISH 13:27: mouth [place] OIL) 1,000 16 daily. Medical mg (120 Branch mg-180 mg) Cap aspirin 81 2020-0 Yes 81mg Take 81 mg U nivers mg EC 08-27 by mouth ity of tablet 13:27: daily. [place] 16 Medical Branch doxycycline 2019-08- No [id number] 100mg Take 1 [facility] hyclate 100 1-25 12-10 capsule by i ty of mg capsule 00:00: 05:59 mouth [place] 00 :00 every 12 Medical (twelve) Branch hours for 14 days. doxycycline 2019-08- No [id number] 100mg Take 1 [facility] hyclate 100 1-25 12-10 capsule by i ty of mg capsule 00:00: 05:59 mouth [place] 00 :00 every 12 Medical (twelve) Branch hours for 14 days. doxycycline 2019-08- No [id number] 100mg Take 1 [facility] hyclate 100 1-25 12-10 capsule by i ty of mg capsule 00:00: 05:59 mouth [place] 00 :00 every 12 Medical (twelve) Branch hours for 14 days. doxycycline 2019-08- No [id number] 100mg Take 1 [facility] hyclate 100 1-25 12-10 capsule by i ty of mg capsule 00:00: 05:59 mouth [place] 00 :00 every 12 Medical (twelve) Branch hours for 14 days. amitriptyli 2019-08- No [id number] 10mg Take 1 [facility] ne 10 mg 08-25 [id number] tablet by ity of tablet 00:00: 05:59 mouth [place] 00 :00 every Medical evening Branch for 30 days. amitriptyli 2019-08- No [id number] 10mg Take 1 [facility] ne 10 mg 08-25 [id number] tablet by ity of tablet 00:00: 05:59 mouth [place] 00 :00 every Medical evening Branch for 30 days. amitriptyli 2019-08- No [id number] 10mg Take 1 [facility] ne 10 mg 08-25 [id number] tablet by ity of tablet 00:00: 05:59 mouth [place] 00 :00 every Medical evening Branch for 30 days. amitriptyli 2019-08- No [id number] 10mg Take 1 [facility] ne 10 mg 08-25 [id number] tablet by ity of tablet 00:00: 05:59 mouth [place] 00 :00 every Medical evening Branch for 30 days. amitriptyli 2019-08 2020- No [id number] 10mg Take 1 [facility] ne 10 mg 08-25 [id number] tablet by ity of tablet 00:00: 05:59 mouth [place] 00 :00 every Medical evening Branch for 30 days. amitriptyli 2019-08 2020- No [id number] 10mg Take 1 [facility] ne 10 mg 08-25 [id number] tablet by ity of tablet 00:00: 05:59 mouth [place] 00 :00 every Medical evening Branch for 30 days. amitriptyli 2019-08 2020- No [id number] 10mg Take 1 [facility] ne 10 mg 08-25 [id number] tablet by ity of tablet 00:00: 05:59 mouth [place] 00 :00 every Medical evening Branch for 30 days. amitriptyli 2019-08- No [id number] 10mg Take 1 [facility] ne 10 mg 08-25 [id number] tablet by ity of tablet 00:00: 05:59 mouth [place] 00 :00 every Medical evening Branch for 30 days. amitriptyli 2019-08- No [id number] 10mg Take 1 [facility] ne 10 mg 08-25 [id number] tablet by ity of tablet 00:00: 05:59 [...] (three) Medica l INJECTION) times Branch daily. [place]-3-DHA 2019-08 Yes 1{capsu Take 1 U nivers -EPA-Fish 0-28 le} capsule by ity of Oil (FISH 18:39: mouth [place] OIL) 1,000 44 daily. Medical mg (120 Branch mg-180 mg) Cap aspirin 81 2019-08 Yes 81mg Take 81 mg U nivers mg EC 0-28 by mouth ity of tablet 18:39: daily. [place] 44 Medical Branch insulin NPH 2019-08 Yes 65U inject 65 U nivers human 0-28 Units ity of [place]ophane 18:39: [place] ([place] N 44 skin [facility] [place]) daily. Branch insulin 2020- Yes 20U Inject 20 Unive rs regular, 0-28 Units as ity of human 18:39: directed 3 [place] (NOVOLIN R 44 (three) Medica l INJECTION) times Branch daily. [place]-3-DHA 2020- Yes 1{capsu Take 1 U nivers -EPA-Fish 0-28 le} capsule by ity of Oil (FISH 18:39: mouth [place] OIL) 1,000 44 daily. Medical mg (120 Branch mg-180 mg) Cap aspirin 81 2020-1 Yes 81mg Take 81 mg U nivers mg EC 0-28 by mouth ity of tablet 18:39: daily. [address] insulin NPH 2020- Yes 65U inject 65 U nivers human 0-28 Units ity of isophane 18:39: [place] ([place] N 44 skin [facility] [place]) daily. Branch insulin 2020- Yes 20U Inject 20 Unive rs regular, 0-28 Units as ity of human 18:39: directed 3 [place] (NOVOLIN R 44 (three) Medica l INJECTION) times Branch daily. [place]-3-DHA 2019- Yes 1{capsu Take 1 U nivers -EPA-Fish 0-28 le} capsule by ity of Oil (FISH 18:39: mouth [place] OIL) ,000 44 daily. Medical mg (120 Branch mg-180 mg) Cap aspirin 81 2020-1 Yes 81mg Take 81 mg U nivers mg EC 0-28 by mouth ity of tablet 18:39: daily. [address] Branch insulin NPH 2020- Yes 65U inject 65 U nivers human 0-28 Units ity of isophane 18:39: [place] ([place] N 44 skin [facility] [place]) daily. Branch insulin 2020- Yes 20U Inject 20 Unive rs regular, 0-28 Units as ity of human 18:39: directed 3 [place] (NOVOLIN R 44 (three) Medica l INJECTION) times Branch daily. [place]-3-DHA 2020- Yes 1{capsu Take 1 U nivers -EPA-Fish 0-28 le} capsule by ity of Oil (FISH 18:39: mouth [place] OIL) 1,000 44 daily. Medical mg (120 Branch mg-180 mg) Cap aspirin 81 2020- Yes 81mg Take 81 mg U nivers mg EC 0-28 by mouth ity of tablet 18:39: daily. [address] Branch insulin NPH 2019- Yes 65U inject 65 U nivers human 0-28 Units ity of isophane 18:39: [place] ([place] N 44 skin [facility] [place]) daily. Branch insulin 2019-08 Yes 20U Inject 20 Unive rs regular, 0-28 Units as ity of human 18:39: directed 3 [place] (NOVOLIN R 44 (three) Medica l INJECTION) times Branch daily. [place]-3-DHA 2020- Yes 1{capsu Take 1 U nivers -EPA-Fish 0-28 le} capsule by ity of Oil (FISH 18:39: mouth [place] OIL) ,000 44 daily. Medical mg (120 Branch mg-180 mg) Cap aspirin 81 2020-1 Yes 81mg Take 81 mg U nivers mg EC 0-28 by mouth ity of tablet 18:39: daily. [address] Branch insulin NPH 2019-08 Yes 65U inject 65 U nivers human 0-28 Units ity of isophane 18:39: [place] ([place] N 44 skin Medical [place]) daily. Branch insulin 2019-08 Yes 20U Inject 20 Unive rs regular, 0-28 Units as ity of human 18:39: directed 3 [place] (NOVOLIN R 44 (three) Medica l INJECTION) times Branch daily. [place]-3-DHA 2020- Yes 1{capsu Take 1 U nivers -EPA-Fish 0-28 le} capsule by ity of Oil (FISH 18:39: mouth [place] OIL) 1,000 44 daily. Medical mg (120 Branch mg-180 mg) Cap aspirin 81 2020-1 Yes 81mg Take 81 mg U nivers mg EC 0-28 by mouth ity of tablet 18:39: daily. [address] Branch insulin NPH 2019- Yes 65U inject 65 U nivers human 0-28 Units ity of isophane 18:39: [place] ([place] N 44 skin [facility] [place]) daily. Branch insulin 2020- Yes 20U Inject 20 Unive rs regular, 0-28 Units as ity of human 18:39: directed 3 [place] (NOVOLIN R 44 (three) Medica l INJECTION) times [place] daily. [place]-3-DHA 2020- Yes 1{capsu Take 1 U nivers -EPA-Fish 0-28 le} capsule by ity of Oil (FISH 18:39: mouth [place] OIL) 1,000 44 daily. Medical mg (120 Branch mg-180 mg) Cap aspirin 81 2020- Yes 81mg Take 81 mg U nivers mg EC 0-28 by mouth ity of tablet 18:39: daily. [address] Branch insulin NPH 2019- Yes 65U inject 65 U nivers human 0-28 Units ity of [place]ophane 18:39: [place] ([place] N 44 skin [facility] [place]) daily. Branch insulin 2020- Yes 20U Inject 20 Unive rs regular, 0-28 Units as ity of human 18:39: directed 3 [place] (NOVOLIN R 44 (three) Medica l INJECTION) times Branch daily. [place]-3-DHA 2019- Yes 1{capsu Take 1 U nivers -EPA-Fish 0-28 le} capsule by ity of Oil (FISH 18:39: mouth [place] OIL) 1,000 44 daily. Medical mg (120 Branch mg-180 mg) Cap aspirin 81 2020-1 Yes 81mg Take 81 mg U nivers mg EC 0-28 by mouth ity of tablet 18:39: daily. [address] insulin NPH 2019- Yes 65U inject 65 U nivers human 0-28 Units ity of [place]ophane 18:39: [place] ([place] N 44 skin [facility] [place]) daily. Branch insulin 2020- Yes 20U Inject 20 Unive rs regular, 0-28 Units as ity of human 18:39: directed 3 [place] (NOVOLIN R 44 (three) Medica l INJECTION) times [place] daily. [place]-3-DHA 2020- Yes 1{capsu Take 1 U nivers -EPA-Fish 0-28 le} capsule by ity of Oil (FISH 18:39: mouth [place] OIL) 1,000 44 daily. Medical mg (120 Branch mg-180 mg) Cap aspirin 81 2020-1 Yes 81mg Take 81 mg U nivers mg EC 0-28 by mouth ity of tablet 18:39: daily. [address] insulin NPH 2020- Yes 65U inject 65 U nivers human 0-28 Units ity of [place]ophane 18:39: [place] ([place] N 44 skin [facility] [place]) daily. Branch insulin 2020- Yes 20U Inject 20 Unive rs regular, 0-28 Units as ity of human 18:39: directed 3 [place] (NOVOLIN R 44 (three) Medica l INJECTION) times Branch daily. [place]-3-DHA 2020- Yes 1{capsu Take 1 U nivers -EPA-Fish 0-28 le} capsule by ity of Oil (FISH 18:39: mouth [place] OIL) 1,000 44 daily. Medical mg (120 Branch mg-180 mg) Cap aspirin 81 2020-1 Yes 81mg Take 81 mg U nivers mg EC 0-28 by mouth ity of tablet 18:39: daily. [address] insulin NPH 2019- Yes 65U inject 65 U nivers human 0-28 Units ity of [place]ophane 18:39: [place] ([place] N 44 skin [facility] [place]) daily. Branch insulin 2020- Yes 20U Inject 20 Unive rs regular, 0-28 Units as ity of human 18:39: directed 3 [place] (NOVOLIN R 44 (three) Medica l INJECTION) times Branch daily. [place]-3-DHA 2019- Yes 1{capsu Take 1 U nivers -EPA-Fish 0-28 le} capsule by ity of Oil (FISH 18:39: mouth [place] OIL) ,000 44 daily. Medical mg (120 Branch mg-180 mg) Cap aspirin 81 2020-1 Yes 81mg Take 81 mg U nivers mg EC 0-28 by mouth ity of tablet 18:39: daily. [address] Branch insulin NPH 2020- Yes 65U inject 65 U nivers human 0-28 Units ity of [place]ophane 18:39: [place] ([place] N 44 skin [facility] [place]) daily. Branch insulin 2020- Yes 20U Inject 20 Unive rs regular, 0-28 Units as ity of human 18:39: directed 3 [place] (NOVOLIN R 44 (three) Medica l INJECTION) times Branch daily. [place]-3-DHA 2020- Yes 1{capsu Take 1 U nivers -EPA-Fish 0-28 le} capsule by ity of Oil (FISH 18:39: mouth [place] OIL) 1,000 44 daily. Medical mg (120 Branch mg-180 mg) Cap aspirin 81 2020- Yes 81mg Take 81 mg U nivers mg EC 0-28 by mouth ity of tablet 18:39: daily. [address] Branch insulin NPH 2019- Yes 65U inject 65 U nivers human 0-28 Units ity of [place]ophane 18:39: [place] ([place] N 44 skin [facility] [place]) daily. Branch insulin 2019-08 Yes 20U Inject 20 Unive rs regular, 0-28 Units as ity of human 18:39: directed 3 [place] (NOVOLIN R 44 (three) Medica l INJECTION) times Branch daily. [place]-3-DHA 2020- Yes 1{capsu Take 1 U nivers -EPA-Fish 0-28 le} capsule by ity of Oil (FISH 18:39: mouth [place] OIL) ,000 44 daily. Medical mg (120 Branch mg-180 mg) Cap aspirin 81 2020- Yes 81mg Take 81 mg U nivers mg EC 0-28 by mouth ity of tablet 18:39: daily. [address] Branch insulin NPH 2019-08 Yes 65U inject 65 U nivers human 0-28 Units ity of [place]ophane 18:39: [place] ([facility] N 44 skin [facility] [place]) daily. Branch insulin 2019-08 Yes 20U Inject 20 Unive rs regular, 0-28 Units as ity of human 18:39: directed 3 [place] (NOVOLIN R 44 (three) Medica l INJECTION) times Branch daily. [place]-3-DHA 2020- Yes 1{capsu Take 1 U nivers -EPA-Fish 0-28 le} capsule by ity of Oil (FISH 18:39: mouth [place] OIL) 1,000 44 daily. Medical mg (120 Branch mg-180 mg) Cap aspirin 81 2020- Yes 81mg Take 81 mg U nivers mg EC 0-28 by mouth ity of tablet 18:39: daily. [place] [address] Medical Branch insulin NPH 2019- Yes 65U inject 65 U nivers human 0-28 Units ity of isophane 18:39: [place] ([place]OLIN N 44 skin [facility] [place]) daily. Branch insulin 2020- Yes 20U Inject 20 Unive rs regular, 0-28 Units as ity of human 18:39: directed 3 [place] (NOVOLIN R 44 (three) Medica l INJECTION) times Branch daily. [place]-3-DHA 2019-08 Yes 1{capsu Take 1 U nivers -EPA-Fish 0-28 le} capsule by ity of Oil (FISH 18:39: mouth [place] OIL) 1,000 44 daily. Medical mg (120 Branch mg-180 mg) Cap aspirin 81 2019-08 Yes 81mg Take 81 mg U nivers mg EC 0-28 by mouth ity of tablet 18:39: daily. [address] Branch insulin NPH 2019-08 Yes 65U inject 65 U nivers human 0-28 Units ity of isophane 18:39: [place]NOVOLIN N 44 skin Medical [place]) daily. Branch insulin 2019-08 Yes 20U Inject 20 Unive rs regular, 0-28 Units as ity of human 18:39: directed 3 [place] (NOVOLIN R 44 (three) Medica l INJECTION) times Branch daily. [place]-3-DHA 2019-08 Yes 1{capsu Take 1 U nivers -EPA-Fish 0-28 le} capsule by ity of Oil (FISH 18:39: mouth [place] OIL) 1,000 44 daily. Medical mg (120 Branch mg-180 mg) Cap aspirin 81 2019-08 Yes 81mg Take 81 mg U nivers mg EC 0-28 by mouth ity of tablet 18:39: daily. [address] doxycycline 2019-08 2020- No [id number] 100mg Take 1 [facility] 100 mg EC 0-28 07-03 [id number] tablet by it y of tablet 00:00: 05:59 mouth 2 [place] 00 :00 (two) Medical times Branch daily for 14 days. doxycycline 2019-08 2020- No [id number] 100mg Take 1 [facility] 100 mg EC 0-28 - [id number] tablet by it y of tablet 00:00: 05:59 mouth 2 [place] 00 :00 (two) Medical times Branch daily for 14 days. doxycycline 2019-08 2020- No [id number] 100mg Take 1 [facility] 100 mg EC 0-28 - [id number] tablet by it y of tablet 00:00: 05:59 mouth 2 [place] 00 :00 (two) Medical times Branch daily for 14 days. doxycycline 2019-08 2020- No [id number] 100mg Take 1 [facility] 100 mg EC 0-28 - [id number] tablet by it y of tablet 00:00: 05:59 mouth 2 [place] 00 :00 (two) Medical times Branch daily for 14 days. doxycycline 2019-08- No [id number] 100mg Take 1 [facility] 100 mg EC 0-19 07-12 [id number] tablet by it y of tablet 00:00: 05:59 mouth 2 [place] 00 :00 (two) Medical times Branch daily for 14 days. doxycycline 2019-08- No [id number] 100mg Take 1 [facility] 100 mg EC 0-19 07- [id number] tablet by it y of tablet 00:00: 05:59 mouth 2 [place] 00 :00 (two) Medical times Branch daily for 14 days. traMADoL 50 2019-08- No [id number] 50mg Take 1 Uni vers mg tablet 0-21 10-29 tablet by ity of 00:00: 04:59 mouth [place] 00 :00 every 8 Medical (eight) Branch hours as needed for Pain (scale 4-6) for up to 7 days. Indication s: acute pain traMADoL 50 2019-08- No [id number] 50mg Take 1 Uni vers mg tablet 0-21 10-29 tablet by ity of 00:00: 04:59 [...] 7 days. Indication s: acute pain sulfamethox 2019-08- No [id number] 1{tbl} Take 1 [facility] azole-trime 0-12 10-20 [id number] tablet by ity of thoprim 00:00: 04:59 mouth 2 [place] (BACTRIM) 00 :00 (two) Medical 400-80 mg times Branch per tablet daily for 7 days. sulfamethox 2019-08- No [id number] 1{tbl} Take 1 [facility] azole-trime 0-12 10-20 [id number] tablet by ity of thoprim 00:00: 04:59 mouth 2 [place] (BACTRIM) 00 :00 (two) Medical 400-80 mg times Branch per tablet daily for 7 days. sulfamethox 2019-08- No [id number] 1{tbl} Take 1 [facility] azole-trime 0-12 10-20 [id number] tablet by ity of thoprim 00:00: 04:59 mouth 2 [place] (BACTRIM) 00 :00 (two) Medical 400-80 mg times Branch per tablet daily for 7 days. sulfamethox 2020- 2020- No [id number] 1{tbl} Take 1 [facility] azole-trime 0-12 10-20 [id number] tablet by ity of thoprim 00:00: 04:59 mouth 2 [place] (BACTRIM) 00 :00 (two) Medical 400-80 mg times Branch per tablet daily for 7 days. sulfamethox 2020- 2020- No [id number] 1{tbl} Take 1 [facility] azole-trime 0-12 10-20 [id number] tablet by ity of thoprim 00:00: 04:59 [...] as ity of human 01:11: directed 3 [place] (NOVOLIN R 03 (three) Medica l INJECTION) times Branch daily. [place]-3-DHA 2020-0 Yes 1{capsu Take 1 U nivers -EPA-Fish 9-25 le} capsule by ity of Oil (FISH 01:11: mouth [place] OIL) 1,000 03 daily. Medical mg (120 Branch mg-180 mg) Cap aspirin 81 2020-0 Yes 81mg Take 81 mg U nivers mg EC 9-25 by mouth ity of tablet 01:11: daily. [place] 03 Medical Branch insulin NPH 2020-0 Yes 65U inject 65 U nivers human 9-25 Units ity of isophane 01:11: [place] 03 skin [facility] [place] daily. Branch insulin 2020-0 Yes 20U Inject 20 Unive rs regular, 9-25 Units as ity of human 01:11: directed 3 [place] (NOVOLIN R 03 (three) Medica l INJECTION) times Branch daily. [place]-3-DHA 2020-0 Yes 1{capsu Take 1 U nivers -EPA-Fish 9-25 le} capsule by ity of Oil (FISH 01:11: mouth [place] OIL) 1,000 03 daily. Medical mg (120 Branch mg-180 mg) Cap aspirin 81 2020-0 Yes 81mg Take 81 mg U nivers mg EC 9-25 by mouth ity of tablet 01:11: daily. [place] [facility] Branch insulin NPH 2020-0 Yes 65U inject 65 U nivers human 9-25 Units ity of isophane 01:11: [place] N 03 skin [facility] [place]) daily. Branch insulin 2020-0 Yes 20U Inject 20 Unive rs regular, 9-25 Units as ity of human 01:11: directed 3 [place] (NOVOLIN R 03 (three) Medica l INJECTION) times Branch daily. [place]-3-DHA 2020-0 Yes 1{capsu Take 1 U nivers -EPA-Fish 9-25 le} capsule by ity of Oil (FISH 01:11: mouth [place] OIL) 1,000 03 daily. Medical mg (120 Branch mg-180 mg) Cap aspirin 81 2020-0 Yes 81mg Take 81 mg U nivers mg EC 9-25 by mouth ity of tablet 01:11: daily. [place] [facility] insulin NPH 2020-0 Yes 65U inject 65 U nivers human 9-25 Units ity of isophane 01:11: [place] ([place] N 03 skin [facility] [place]) daily. Branch insulin 2020-0 Yes 20U Inject 20 Unive rs regular, 9-25 Units as ity of human 01:11: directed 3 [place] (NOVOLIN R 03 (three) Medica l INJECTION) times Branch daily. [place]-3-DHA 2020-0 Yes 1{capsu Take 1 U nivers -EPA-Fish 9-25 le} capsule by ity of Oil (FISH 01:11: mouth [place] OIL) 1,000 03 daily. Medical mg (120 Branch mg-180 mg) Cap aspirin 81 2020-0 Yes 81mg Take 81 mg U nivers mg EC 9-25 by mouth ity of tablet 01:11: daily. [place] [facility] insulin NPH 2020-0 Yes 65U inject 65 U nivers human 9-25 Units ity of isophane 01:11: [place] ([place] N 03 skin [facility] [place]) daily. Branch insulin 2020-0 Yes 20U Inject 20 Unive rs regular, 9-25 Units as ity of human 01:11: directed 3 [place] (NOVOLIN R 03 (three) Medica l INJECTION) times Branch daily. [place]-3-DHA 2020-0 Yes 1{capsu Take 1 U nivers -EPA-Fish 9-25 le} capsule by ity of Oil (FISH 01:11: mouth [place] OIL) 1,000 03 daily. Medical mg (120 Branch mg-180 mg) Cap aspirin 81 2020-0 Yes 81mg Take 81 mg U nivers mg EC 9-25 by mouth ity of tablet 01:11: daily. [place] [facility] insulin NPH 2020-0 Yes 65U inject 65 U nivers human 9-25 Units ity of isophane 01:11: [place] ([place]IN N 03 skin [facility] [place]) daily. Branch insulin 2020-0 Yes 20U Inject 20 Unive rs regular, 9-25 Units as ity of human 01:11: directed 3 [place] (NOVOLIN R 03 (three) Medica l INJECTION) times Branch daily. [place]-3-DHA 2020-0 Yes 1{capsu Take 1 U nivers -EPA-Fish 9-25 le} capsule by ity of Oil (FISH 01:11: mouth [place] OIL) 1,000 03 daily. Medical mg (120 Branch mg-180 mg) Cap aspirin 81 2020-0 Yes 81mg Take 81 mg U nivers mg EC 9-25 by mouth ity of tablet 01:11: daily. [place] [facility] insulin NPH 2020-0 Yes 65U inject 65 U nivers human 9-25 Units ity of isophane 01:11: [place] ([place] N 03 skin [facility] [place]) daily. Branch insulin 2020-0 Yes 20U Inject 20 Unive rs regular, 9-25 Units as ity of human 01:11: directed 3 [place] (NOVOLIN R 03 (three) Medica l INJECTION) times Branch daily. [place]-3-DHA 2020-0 Yes 1{capsu Take 1 U nivers -EPA-Fish 9-25 le} capsule by ity of Oil (FISH 01:11: mouth [place] OIL) 1,000 03 daily. Medical mg (120 Branch mg-180 mg) Cap aspirin 81 2020-0 Yes 81mg Take 81 mg U nivers mg EC 9-25 by mouth ity of tablet 01:11: daily. [address] Branch insulin NPH 2020-0 Yes 65U inject 65 U nivers human 9-25 Units ity of isophane 01:11: [place] ([place] N 03 skin [facility] [place]) daily. Branch insulin 2020-0 Yes 20U Inject 20 Unive rs regular, 9-25 Units as ity of human 01:11: directed 3 [place] (NOVOLIN R 03 (three) Medica l INJECTION) times [place] daily. [place]-3-DHA 2020-0 Yes 1{capsu Take 1 U nivers -EPA-Fish 9-25 le} capsule by ity of Oil (FISH 01:11: mouth [place] OIL) 1,000 03 daily. Medical mg (120 Branch mg-180 mg) Cap aspirin 81 2020-0 Yes 81mg Take 81 mg U nivers mg EC 9-25 by mouth ity of tablet 01:11: daily. [address] insulin NPH 2020-0 Yes 65U inject 65 U nivers human 9-25 Units ity of isophane 01:11: [place] ([place]OLIN N 03 skin [facility] [place]) daily. Branch insulin 2020-0 Yes 20U Inject 20 Unive rs regular, 9-25 Units as ity of human 01:11: directed 3 [place] (NOVOLIN R 03 (three) Medica l INJECTION) times [place] daily. [place]-3-DHA 2020-0 Yes 1{capsu Take 1 U nivers -EPA-Fish 9-25 le} capsule by ity of Oil (FISH 01:11: mouth [place] OIL) 1,000 03 daily. Medical mg (120 Branch mg-180 mg) Cap aspirin 81 2020-0 Yes 81mg Take 81 mg U nivers mg EC 9-25 by mouth ity of tablet 01:11: daily. [address] Branch lactated 2020-0 Yes 1000mL at 75 Univer s ringers IV 9-24 mL/hr, ity of infusion 23:00: 1,000 [place], [place] 1[place]000 mL 00 IV Medical Infusion, Branch CONTINUOUS , Starting [place] 05/15/20 at 1800, Until Discontinu ed, Routine, PACU HYDROmorpho 2020-0 Yes .2mg 0.2 mg, Uni vers ne 9-24 Slow IV ity of (DILAUDID) 22:50: Push, [place] injection 40 Q5MIN PRN, Medi ju 0.2 mg 10 doses, Branch Starting [facility] 05/15/20 at 1750, Until Discontinu ed, Routine, Pain (scale 7-10), PACU
Us e approved by (Faculty): PACU USE -ANESTHESI A SERVICE-HY DROMORPHON E INJECTIONS ondansetron 2019-0 Yes 4mg 4 mg, Slow Univers (ZOFRAN 05-15 IV Push, ity of (PF)) 22:50: PRN, 1 [place] injection 4 40 dose, Medical mg Starting Branch [place] 05/15/20 at 1750, Until Discontinu ed, Routine, Nausea and Vomiting (N/V), PACU FENTanyl PF 2019-0 Yes 25ug 25 mcg, Uni vers (SUBLIMAZE 05-15 Slow IV ity of (PF)) 22:50: [place], [place] injection 39 Q5MIN PRN, Medi ju 25 mcg 4 doses, Branch Starting [facility] 05/15/20 at 1750, Until Discontinu ed, Routine, Pain (scale 4-6), PACU sodium 2020-0 Yes PRN, Univers chloride 05-15 Starting ity of 0.9 % 18:41: [place] irrigation 00 05/15/20 at [facility] ical solution 1341, Branch Until Discontinu ed, Intra-op bupivacaine 2020-0 Yes PRN, Univer s -epinephrin 05-15 Starting ity of e-pf 18:41: [place] (SENSORCAIN 05/15/20 at [facility] dical E 1341, Branch W/EPINEPHRI Until MN) 0.25 Discontinu %-1:200,000 ed, injection Routine, Intra-op HYDROcodone 2020-0 2020- No [id number] 1{tbl} Take 1 U nivers -acetaminop 05-1502 tablet by it y of hen 5-325 00:00: 04:59 mouth [place] mg tablet 00 :00 every 6 Medical (six) Branch hours as needed for Pain (scale 4-6) or Pain (scale 7-10) for up to 7 days. Indication s: acute pain [place]-3-DHA 2020-0 Yes 1{capsu Take 1 U nivers -EPA-Fish 9-21 le} capsule by ity of Oil (FISH 20:05: mouth [place] OIL) 1,000 35 daily. Medical mg (120 Branch mg-180 mg) Cap aspirin 81 2020-0 Yes 81mg Take 81 mg U nivers mg EC 9-21 by mouth ity of tablet 20:05: daily. [address] [place]-3-DHA 2020-0 Yes 1{capsu Take 1 U nivers -EPA-Fish 9-21 le} capsule by ity of Oil (FISH 20:05: mouth [place] OIL) 1,000 35 daily. Medical mg (120 Branch mg-180 mg) Cap aspirin 81 2020-0 Yes 81mg Take 81 mg U nivers mg EC 9-21 by mouth ity of tablet 20:05: daily. [address] [place]-3-DHA 2020-0 Yes 1{capsu Take 1 U nivers -EPA-Fish 9-21 le} capsule by ity of Oil (FISH 20:05: mouth [place] OIL) 1,000 35 daily. Medical mg (120 Branch mg-180 mg) Cap aspirin 81 2020-0 Yes 81mg Take 81 mg U nivers mg EC 9-21 by mouth ity of tablet 20:05: daily. [address] insulin NPH 2020-0 Yes 65U inject 65 U nivers human 9-21 Units ity of isophane 20:04: [place] ([place]OVOLIN N 25 skin Medical [place]) daily. Branch insulin 2020-0 Yes 20U Inject 20 Unive rs regular, 9-21 Units as ity of human 20:04: directed 3 [place] (NOVOLIN R 25 (three) Medica l INJECTION) times [place] daily. insulin NPH 2020-0 Yes 65U inject [...] [place] ([place]OLIN N 25 skin Medical [place]) daily. Branch insulin 2020-0 Yes 20U Inject 20 Unive rs regular, 9-21 Units as ity of human 20:04: directed 3 [place] (NOVOLIN R 25 (three) Medica l INJECTION) times Branch daily. acetaminoph 2019- No [id number] 1{tbl} Take 1 U nivers en-codeine 05-05 tablet by ity of 300-30 mg 00:00: 04:59 mouth [place] tablet 00 :00 every 6 Medical (six) Branch hours as needed for Pain (scale 7-10) for up to 7 days. Indication s: acute pain acetaminoph 2019- No [id number] 1{tbl} Take 1 U nivers en-codeine 05-05 tablet by ity of 300-30 mg 00:00: 04:59 mouth [place] tablet 00 :00 every 6 Medical (six) Branch hours as needed for Pain (scale 7-10) for up to 7 days. Indication s: acute pain acetaminoph 2019- No [id number] 1{tbl} Take 1 U nivers en-codeine 05-05 tablet by ity of 300-30 mg 00:00: 04:59 mouth [place] tablet 00 :00 every 6 Medical (six) Branch hours as needed for Pain (scale 7-10) for up to 7 days. Indication s: acute pain acetaminoph 2019- No [id number] 1{tbl} Take 1 U nivers en-codeine 05-05 tablet by ity of 300-30 mg 00:00: 04:59 mouth [place] tablet 00 :00 every 6 Medical (six) Branch hours as needed for Pain (scale 7-10) for up to 7 days. Indication s: acute pain levothyroxi 2020-0 Yes Univer s ne 88 [...] 88 mcg 9-13 ity of tablet 00:00: [place] 00 Medical Branch levothyroxi 2020-0 Yes Univer s ne 75 mcg 9-13 ity of tablet 00:00: [place] 00 Medical Branch JARDIANCE 2020-0 Yes Univers 25 mg Tab 9-13 ity of 00:00: [place] 00 Medical Branch traZODone 2020-0 Yes Univers 100 mg 9-13 ity of tablet 00:00: [place] 00 Medical Branch metoprolol 2020-0 Yes Univers succinate 9-13 ity of XL 50 mg 24 00:00: [place] hr tablet 00 Medical Branch levothyroxi 2020-0 Yes Univer s ne 88 mcg 9-13 ity of tablet 00:00: [place] 00 Medical Branch levothyroxi 2020-0 Yes Univer s ne 75 mcg 9-13 ity of tablet 00:00: [place] 00 Medical Branch JARDIANCE 2020-0 Yes Univers 25 mg Tab 9-13 ity of 00:00: [place] 00 Medical Branch traZODone 2020-0 Yes Univers 100 mg 9-13 ity of tablet 00:00: [place] 00 Medical Branch metoprolol 2020-0 Yes Univers succinate 9-13 ity of XL 50 mg 24 00:00: [place] hr tablet 00 Medical Branch levothyroxi 2020-0 Yes Univer s ne 88 mcg 9-13 ity of tablet 00:00: [place] 00 Medical Branch levothyroxi 2020-0 Yes Univer s ne 75 mcg 9-13 ity of tablet 00:00: [place] 00 Medical Branch JARDIANCE 2020-0 Yes Univers 25 mg Tab 9-13 ity of 00:00: [place] 00 Medical Branch traZODone 2020-0 Yes Univers 100 mg 9-13 ity of tablet 00:00: [place] 00 Medical Branch metoprolol 2020-0 Yes Univers succinate 9-13 ity of XL 50 mg 24 00:00: [place] hr tablet 00 Medical Branch levothyroxi 2020-0 Yes Univer s ne 88 mcg 9-13 ity of tablet 00:00: [place] 00 Medical Branch levothyroxi 2020-0 Yes Univer s ne 75 mcg 9-13 ity of tablet 00:00: [place] 00 Medical Branch JARDIANCE 2020-0 Yes Univers 25 mg Tab 9-13 ity of 00:00: [place] 00 Medical Branch traZODone 2020-0 Yes Univers 100 mg 9-13 ity of tablet 00:00: [place] 00 Medical Branch metoprolol 2020-0 Yes Univers succinate 9-13 ity of XL 50 mg 24 00:00: [place] hr tablet 00 Medical Branch levothyroxi 2020-0 Yes Univer s ne 88 mcg 9-13 ity of tablet 00:00: [place] 00 Medical Branch levothyroxi 2020-0 Yes Univer s ne 75 mcg 9-13 ity of tablet 00:00: [place] 00 Medical Branch JARDIANCE 2020-0 Yes Univers 25 mg Tab 9-13 ity of 00:00: [place] 00 Medical Branch traZODone 2020-0 Yes Univers 100 mg 9-13 ity of tablet 00:00: [place] 00 Medical Branch metoprolol 2020-0 Yes Univers succinate 9-13 ity of XL 50 mg 24 00:00: [place] hr tablet 00 Medical Branch levothyroxi 2020-0 Yes Univer s ne 88 mcg 9-13 ity of tablet 00:00: [place] 00 Medical Branch levothyroxi 2020-0 Yes Univer s ne 75 mcg 9-13 ity of tablet 00:00: [place] 00 Medical Branch JARDIANCE 2020-0 Yes Univers 25 mg Tab 9-13 ity of 00:00: [place] 00 Medical Branch traZODone 2020-0 Yes Univers 100 mg 9-13 ity of tablet 00:00: [place] 00 Medical Branch metoprolol 2020-0 Yes Univers succinate 9-13 ity of XL 50 mg 24 00:00: [place] hr tablet 00 Medical Branch levothyroxi 2020-0 Yes Univer s ne 88 mcg 9-13 ity of tablet 00:00: [place] 00 Medical Branch levothyroxi 2020-0 Yes Univer s ne 75 mcg 9-13 ity of tablet 00:00: [place] 00 Medical Branch JARDIANCE 2020-0 Yes Univers 25 mg Tab 9-13 ity of 00:00: [place] 00 Medical Branch traZODone 2020-0 Yes Univers 100 mg 9-13 ity of tablet 00:00: [place] 00 Medical Branch metoprolol 2020-0 Yes Univers succinate 9-13 ity of XL 50 mg 24 00:00: [place] hr tablet 00 Medical Branch levothyroxi 2020-0 Yes Univer s ne 88 mcg 9-13 ity of tablet 00:00: [place] 00 Medical Branch levothyroxi 2020-0 Yes Univer s ne 75 mcg 9-13 ity of tablet 00:00: [place] 00 Medical Branch JARDIANCE 2020-0 Yes Univers 25 mg Tab 9-13 ity of 00:00: [place] 00 Medical Branch traZODone 2020-0 Yes Univers 100 mg 9-13 ity of tablet 00:00: [place] 00 Medical Branch metoprolol 2020-0 Yes Univers succinate 9-13 ity of XL 50 mg 24 00:00: [place] hr tablet 00 Medical Branch levothyroxi 2020-0 Yes Univer s ne 88 mcg 9-13 ity of tablet 00:00: [place] 00 Medical Branch levothyroxi 2020-0 Yes Univer s ne 75 mcg 9-13 ity of tablet 00:00: [place] 00 Medical Branch JARDIANCE 2020-0 Yes Univers 25 mg Tab 9-13 ity of 00:00: [place] 00 Medical Branch traZODone 2020-0 Yes Univers 100 mg 9-13 ity of tablet 00:00: [place] 00 Medical Branch metoprolol 2020-0 Yes Univers succinate 9-13 ity of XL 50 mg 24 00:00: [place] hr tablet 00 Medical Branch levothyroxi 2020-0 Yes Univer s ne 88 mcg 9-13 ity of tablet 00:00: [place] 00 Medical Branch levothyroxi 2020-0 Yes Univer s ne 75 mcg 9-13 ity of tablet 00:00: [place] 00 Medical Branch JARDIANCE 2020-0 Yes Univers 25 mg Tab 9-13 ity of 00:00: [place] 00 Medical Branch traZODone 2020-0 Yes Univers 100 mg 9-13 ity of tablet 00:00: [place] 00 Medical Branch metoprolol 2020-0 Yes Univers succinate 9-13 ity of XL 50 mg 24 00:00: [place] hr tablet 00 Medical Branch levothyroxi 2020-0 Yes Univer s ne 88 mcg 9-13 ity of tablet 00:00: [place] 00 Medical Branch levothyroxi 2020-0 Yes Univer s ne 75 mcg 9-13 ity of tablet 00:00: [place] 00 Medical Branch JARDIANCE 2020-0 Yes Univers 25 mg Tab 9-13 ity of 00:00: [place] 00 Medical Branch traZODone 2020-0 Yes Univers 100 mg 9-13 ity of tablet 00:00: [place] 00 Medical Branch metoprolol 2020-0 Yes Univers succinate 9-13 ity of XL 50 mg 24 00:00: [place] hr tablet 00 Medical Branch levothyroxi 2020-0 Yes Univer s ne 88 mcg 9-13 ity of tablet 00:00: [place] 00 Medical Branch levothyroxi 2020-0 Yes Univer s ne 75 mcg 9-13 ity of tablet 00:00: [place] 00 Medical Branch JARDIANCE 2020-0 Yes Univers 25 mg Tab 9-13 ity of 00:00: [place] 00 Medical Branch traZODone 2020-0 Yes Univers 100 mg 9-13 ity of tablet 00:00: [place] 00 Medical Branch metoprolol 2020-0 Yes Univers succinate 9-13 ity of XL 50 mg 24 00:00: [place] hr tablet 00 Medical Branch levothyroxi 2020-0 Yes Univer s ne 88 mcg 9-13 ity of tablet 00:00: [place] 00 Medical Branch levothyroxi 2020-0 Yes Univer s ne 75 mcg 9-13 ity of tablet 00:00: [place] [id number] Medical Branch JARDIANCE 2020-0 Yes Univers 25 mg Tab 9-13 ity of 00:00: [place] 00 Medical Branch traZODone 2020-0 Yes Univers 100 mg 9-13 ity of tablet 00:00: [place] [address] Medical Branch metoprolol 2020-0 Yes Univers succinate 9-13 ity of XL 50 mg 24 00:00: [place] hr tablet 00 Medical Branch levothyroxi 2020-0 Yes Univer s ne 88 mcg 9-13 ity of tablet 00:00: [place] 00 Medical Branch levothyroxi 2020-0 Yes Univer s ne 75 mcg 9-13 ity of tablet 00:00: [place] 00 Medical Branch JARDIANCE 2020-0 Yes Univers 25 mg Tab 9-13 ity of 00:00: [place] 00 Medical Branch traZODone 2020-0 Yes Univers 100 mg 9-13 ity of tablet 00:00: [place] 00 Medical Branch metoprolol 2020-0 Yes Univers succinate 9-13 ity of XL 50 mg 24 00:00: [place] hr tablet 00 Medical Branch levothyroxi 2020-0 Yes Univer s ne 88 mcg 9-13 ity of tablet 00:00: [place] 00 Medical Branch levothyroxi 2020-0 Yes Univer s ne 75 mcg 9-13 ity of tablet 00:00: [place] 00 Medical Branch JARDIANCE 2020-0 Yes Univers 25 mg Tab 9-13 ity of 00:00: [place] 00 Medical Branch traZODone 2020-0 Yes Univers 100 mg 9-13 ity of tablet 00:00: [place] 00 Medical Branch metoprolol 2020-0 Yes Univers succinate 9-13 ity of XL 50 mg 24 00:00: [place] hr tablet 00 Medical Branch levothyroxi 2020-0 Yes Univer s ne 88 mcg 9-13 ity of tablet 00:00: [place] 00 Medical Branch levothyroxi 2020-0 Yes Univer s ne 75 mcg 9-13 ity of tablet 00:00: [place] 00 Medical Branch JARDIANCE 2020-0 Yes Univers 25 mg Tab 9-13 ity of 00:00: [place] 00 Medical Branch traZODone 2020-0 Yes Univers 100 mg 9-13 ity of tablet 00:00: [place] [id number] Medical Branch metoprolol 2020-0 Yes Univers succinate 9-13 ity of XL 50 mg 24 00:00: [place] hr tablet 00 Medical Branch levothyroxi 2020-0 Yes Univer s ne 88 mcg 9-13 ity of tablet 00:00: [place] 00 Medical Branch levothyroxi 2020-0 Yes Univer s ne 75 mcg 9-13 ity of tablet 00:00: [place] [address] Medical Branch JARDIANCE 2020-0 Yes Univers 25 mg Tab 9-13 ity of 00:00: [place] 00 Medical Branch traZODone 2020-0 Yes Univers 100 mg 9-13 ity of tablet 00:00: [place] 00 Medical Branch metoprolol 2020-0 Yes Univers succinate 9-13 ity of XL 50 mg 24 00:00: [place] hr tablet 00 Medical Branch levothyroxi 2020-0 Yes Univer s ne 88 mcg 9-13 ity of tablet 00:00: [place] 00 Medical Branch levothyroxi 2020-0 Yes Univer s ne 75 mcg 9-13 ity of tablet 00:00: [place] 00 Medical Branch JARDIANCE 2020-0 Yes Univers 25 mg Tab 9-13 ity of 00:00: [place] 00 Medical Branch traZODone 2020-0 Yes Univers 100 mg 9-13 ity of tablet 00:00: [place] 00 Medical Branch metoprolol 2020-0 Yes Univers succinate 9-13 ity of XL 50 mg 24 00:00: [place] hr tablet 00 Medical Branch levothyroxi 2020-0 Yes Univer s ne 88 mcg 9-13 ity of tablet 00:00: [place] 00 Medical Branch levothyroxi 2020-0 Yes Univer s ne 75 mcg 9-13 ity of tablet 00:00: [place] 00 Medical Branch JARDIANCE 2020-0 Yes Univers 25 mg Tab 9-13 ity of 00:00: [place] 00 Medical Branch traZODone 2020-0 Yes Univers 100 mg 9-13 ity of tablet 00:00: [place] 00 Medical Branch metoprolol 2020-0 Yes Univers succinate 9-13 ity of XL 50 mg 24 00:00: [place] hr tablet 00 Medical Branch levothyroxi 2020-0 Yes Univer s ne 88 mcg 9-13 ity of tablet 00:00: [place] 00 Medical Branch levothyroxi 2020-0 Yes Univer s ne 75 mcg 9-13 ity of tablet 00:00: [place] 00 Medical Branch JARDIANCE 2020-0 Yes Univers 25 mg Tab 9-13 ity of 00:00: [place] 00 Medical Branch traZODone 2020-0 Yes Univers 100 mg 9-13 ity of tablet 00:00: [place] 00 Medical Branch metoprolol 2020-0 Yes Univers succinate 9-13 ity of XL 50 mg 24 00:00: [place] hr tablet 00 Medical Branch levothyroxi 2020-0 Yes Univer s ne 88 mcg 9-13 ity of tablet 00:00: [place] 00 Medical Branch levothyroxi 2020-0 Yes Univer s ne 75 mcg 9-13 ity of tablet 00:00: [place] 00 Medical Branch JARDIANCE 2020-0 Yes Univers 25 mg Tab 9-13 ity of 00:00: [place] 00 Medical Branch traZODone 2020-0 Yes Univers 100 mg 9-13 ity of tablet 00:00: [place] 00 Medical Branch metoprolol 2020-0 Yes Univers succinate 9-13 ity of XL 50 mg 24 00:00: [place] hr tablet 00 Medical Branch levothyroxi 2020-0 Yes Univer s ne 88 mcg 9-13 ity of tablet 00:00: [place] 00 Medical Branch levothyroxi 2020-0 Yes Univer s ne 75 mcg 9-13 ity of tablet 00:00: [place] 00 Medical Branch JARDIANCE 2020-0 Yes Univers 25 mg Tab 9-13 ity of 00:00: [place] 00 Medical Branch traZODone 2020-0 Yes Univers 100 mg 9-13 ity of tablet 00:00: [place] 00 Medical Branch metoprolol 2020-0 Yes Univers succinate 9-13 ity of XL 50 mg 24 00:00: [place] hr tablet 00 Medical Branch levothyroxi 2020-0 Yes Univer s ne 88 mcg 9-13 ity of tablet 00:00: [place] 00 Medical Branch levothyroxi 2020-0 Yes Univer s ne 75 mcg 9-13 ity of tablet 00:00: [place] 00 Medical Branch JARDIANCE 2020-0 Yes [facility] 25 mg Tab 9-13 ity of 00:00: [place] [facility] traZODone 2020-0 Yes [facility] 100 mg 9-13 ity of tablet 00:00: [place] 00 [facility] metoprolol 2020-0 Yes [facility] succinate 9-13 ity of XL 50 mg 24 00:00: [place] hr tablet 00 [facility] levothyroxi 2020-0 Yes Univer s ne 88 mcg 9-13 ity of tablet 00:00: [place] [address] [facility] levothyroxi 2020-0 Yes [facility] s ne 75 mcg 9-13 ity of tablet 00:00: [place] [address] [facility] JARDIANCE 2020-0 Yes [facility] 25 mg Tab 9-13 ity of 00:00: [place] 00 [facility] traZODone 2020-0 Yes [facility] 100 mg 9-13 ity of tablet 00:00: [place] 00 [facility] metoprolol 2020-0 Yes [facility] succinate 9-13 ity of XL 50 mg 24 00:00: [place] hr tablet 00 [facility] levothyroxi 2020-0 Yes Un[facility] s ne 88 mcg 9-13 ity of tablet 00:00: [place] 00 [facility] levothyroxi 2020-0 Yes [facility] ne 75 mcg 9-13 ity of tablet 00:00: [place] 00 [facility] JARDIANCE 2020-0 Yes [facility] 25 mg Tab 9-13 ity of 00:00: [place] 00 [facility] traZODone 2020-0 Yes [facility] 100 mg 9-13 ity of tablet 00:00: [place] 00 [facility] metoprolol 2020-0 Yes [facility] succinate 9-13 ity of XL 50 mg 24 00:00: [place] hr tablet 00 [facility] levothyroxi 2020-0 Yes Un[facility] ne 88 mcg 9-13 ity of tablet 00:00: [place] 00 [facility] levothyroxi 2020-0 Yes [facility] ne 75 mcg 9-13 ity of tablet 00:00: [place] 00 [facility] JARDIANCE 2020-0 Yes [facility] 25 mg Tab 9-13 ity of 00:00: [place] 00 [facility] traZODone 2020-0 Yes [facility] 100 mg 9-13 ity of tablet 00:00: [place] 00 [facility] metoprolol 2020-0 Yes [facility] succinate 9-13 ity of XL 50 mg 24 00:00: [place] hr tablet 00 [facility] levothyroxi 2020-0 Yes [facility] ne 88 mcg 9-13 ity of tablet 00:00: [place] 00 [facility] levothyroxi 2020-0 Yes [facility] ne 75 mcg 9-13 ity of tablet 00:00: [place] [address] [facility] JARDIANCE 2020-0 Yes [facility] 25 mg Tab 9-13 ity of 00:00: [place] 00 [facility] traZODone 2020-0 Yes [facility] 100 mg 9-13 ity of tablet 00:00: [place] 00 [facility] metoprolol 2020-0 Yes [facility] succinate 9-13 ity of XL 50 mg 24 00:00: [place] hr tablet 00 [facility] levothyroxi 2020-0 Yes [facility] ne 88 mcg 9-13 ity of tablet 00:00: [place] 00 [facility] levothyroxi 2020-0 Yes [facility] ne 75 mcg 9-13 ity of tablet 00:00: [place] [address] [facility] JARDIANCE 2020-0 Yes [facility] 25 mg Tab 9-13 ity of 00:00: [place] 00 [facility] traZODone 2020-0 Yes [facility] 100 mg 9-13 ity of tablet 00:00: [place] 00 [facility] metoprolol 2020-0 Yes [facility] succinate 9-13 ity of XL 50 mg 24 00:00: [place] hr tablet 00 [facility] levothyroxi 2020-0 Yes Un[facility] s ne 88 mcg 9-13 ity of tablet 00:00: [place] 00 [facility] levothyroxi 2020-0 Yes [facility] ne 75 mcg 9-13 ity of tablet 00:00: [place] 00 [facility] JARDIANCE 2020-0 Yes [facility] 25 mg Tab 9-13 ity of 00:00: [place] 00 [facility] traZODone 2020-0 Yes [facility] 100 mg 9-13 ity of tablet 00:00: [place] 00 [facility] metoprolol 2020-0 Yes [facility] succinate 9-13 ity of XL 50 mg 24 00:00: [place] hr tablet 00 [facility] JARDIANCE 2020-0 Yes [facility] 25 mg Tab 9-13 ity of 00:00: [place] 00 [facility] levothyroxi 2020-0 Yes [facility] ne 88 mcg 9-13 ity of tablet 00:00: [place] 00 [facility] levothyroxi 2020-0 Yes [facility] ne 75 mcg 9-13 ity of tablet 00:00: [place] 00 [facility] JARDIANCE 2020-0 Yes [facility] 25 mg Tab 9-13 ity of 00:00: [place] 00 [facility] traZODone 2020-0 Yes [facility] 100 mg 9-13 ity of tablet 00:00: [place] 00 [facility] metoprolol 2020-0 Yes [facility] succinate 9-13 ity of XL 50 mg 24 00:00: [place] hr tablet 00 [facility] traZODone 2020-0 Yes [facility] 100 mg 9-13 ity of tablet 00:00: [place] 00 [facility] levothyroxi 2020-0 Yes [facility] ne 88 mcg 9-13 ity of tablet 00:00: [place] 00 [facility] levothyroxi 2020-0 Yes [facility] ne 75 mcg 9-13 ity of tablet 00:00: [place] 00 [facility] JARDIANCE 2020-0 Yes [facility] 25 mg Tab 9-13 ity of 00:00: [place] 00 [facility] metoprolol 2020-0 Yes [facility] succinate 9-13 ity of XL 50 mg 24 00:00: [place] hr tablet 00 [facility] traZODone 2020-0 Yes [facility] 100 mg 9-13 ity of tablet 00:00: [place] 00 [facility] metoprolol 2020-0 Yes [facility] succinate 9-13 ity of XL 50 mg 24 00:00: [place] hr tablet 00 [facility] levothyroxi 2020-0 Yes [facility] ne 88 mcg 9-13 ity of tablet 00:00: [place] 00 [facility] levothyroxi 2020-0 Yes [facility] ne 75 mcg 9-13 ity of tablet 00:00: [place] 00 [facility] JARDIANCE 2020-0 Yes [facility] 25 mg Tab 9-13 ity of 00:00: [place] 00 [facility] traZODone 2020-0 Yes [facility] 100 mg 9-13 ity of tablet 00:00: [place] 00 [facility] metoprolol 2020-0 Yes [facility] succinate 9-13 ity of XL 50 mg 24 00:00: [place] hr tablet 00 [facility] levothyroxi 2020-0 Yes [facility] ne 88 mcg 9-13 ity of tablet 00:00: [place] 00 [facility] levothyroxi 2020-0 Yes [facility] ne 75 mcg 9-13 ity of tablet 00:00: [place] 00 [facility] levothyroxi 2020-0 Yes [facility] ne 88 mcg 9-13 ity of tablet 00:00: [place] 00 [facility] levothyroxi 2020-0 Yes [facility] ne 75 mcg 9-13 ity of tablet 00:00: [place] 00 [facility] JARDIANCE 2020-0 Yes [facility] 25 mg Tab 9-13 ity of 00:00: [place] 00 [facility] traZODone 2020-0 Yes [facility] 100 mg 9-13 ity of tablet 00:00: [place] [address] [facility] metoprolol 2020-0 Yes [facility] succinate 9-13 ity of XL 50 mg 24 00:00: [place] hr tablet 00 [facility] levothyroxi 2020-0 Yes [facility] ne 88 mcg 9-13 ity of tablet 00:00: [place] 00 [facility] levothyroxi 2020-0 Yes [facility] ne 75 mcg 9-13 ity of tablet 00:00: [place] 00 [facility] JARDIANCE 2020-0 Yes [facility] 25 mg Tab 9-13 ity of 00:00: [place] 00 [facility] traZODone 2020-0 Yes [facility] 100 mg 9-13 ity of tablet 00:00: [place] 00 [facility] metoprolol 2020-0 Yes [facility] succinate 9-13 ity of XL 50 mg 24 00:00: [place] hr tablet 00 [facility] levothyroxi 2020-0 Yes [facility] ne 88 mcg 9-13 ity of tablet 00:00: [place] 00 [facility] levothyroxi 2020-0 Yes [facility] ne 75 mcg 9-13 ity of tablet 00:00: [place] 00 [facility] JARDIANCE 2020-0 Yes [facility] 25 mg Tab 9-13 ity of 00:00: [place] 00 [facility] traZODone 2020-0 Yes [facility] 100 mg 9-13 ity of tablet 00:00: [place] 00 [facility] metoprolol 2020-0 Yes [facility] succinate 9-13 ity of XL 50 mg 24 00:00: [place] hr tablet 00 [facility] levothyroxi 2020-0 Yes [facility] ne 88 mcg 9-13 ity of tablet 00:00: [place] 00 [facility] levothyroxi 2020-0 Yes [facility] ne 75 mcg 9-13 ity of tablet 00:00: [place] 00 [facility] JARDIANCE 2020-0 Yes [facility] 25 mg Tab 9-13 ity of 00:00: [place] 00 [facility] traZODone 2020-0 Yes [facility] 100 mg 9-13 ity of tablet 00:00: [place] 00 [facility] metoprolol 2020-0 Yes [facility] succinate 9-13 ity of XL 50 mg 24 00:00: [place] hr tablet 00 [facility] levothyroxi 2020-0 Yes [facility] ne 88 mcg 9-13 ity of tablet 00:00: [place] 00 [facility] levothyroxi 2020-0 Yes [facility] ne 75 mcg 9-13 ity of tablet 00:00: [place] 00 [facility] JARDIANCE 2020-0 Yes [facility] 25 mg Tab 9-13 ity of 00:00: [place] 00 [facility] traZODone 2020-0 Yes [facility] 100 mg 9-13 ity of tablet 00:00: [place] 00 [facility] metoprolol 2020-0 Yes [facility] succinate 9-13 ity of XL 50 mg 24 00:00: [place] hr tablet 00 [facility] levothyroxi 2020-0 Yes [facility] ne 88 mcg 9-13 ity of tablet 00:00: [place] 00 [facility] levothyroxi 2020-0 Yes [facility] ne 75 mcg 9-13 ity of tablet 00:00: [place] 00 [facility] JARDIANCE 2020-0 Yes [facility] 25 mg Tab 9-13 ity of 00:00: [place] 00 [facility] traZODone 2020-0 Yes [facility] 100 mg 9-13 ity of tablet 00:00: [place] 00 [facility] metoprolol 2020-0 Yes [facility] succinate 9-13 ity of XL 50 mg 24 00:00: [place] hr tablet 00 [facility] levothyroxi 2020-0 Yes [facility] ne 88 mcg 9-13 ity of tablet 00:00: [place] 00 [facility] levothyroxi 2020-0 Yes [facility] ne 75 mcg 9-13 ity of tablet 00:00: [place] 00 [facility] JARDIANCE 2020-0 Yes [facility] 25 mg Tab 9-13 ity of 00:00: [place] 00 [facility] traZODone 2020-0 Yes [facility] 100 mg 9-13 ity of tablet 00:00: [place] 00 [facility] metoprolol 2020-0 Yes [facility] succinate 9-13 ity of XL 50 mg 24 00:00: [place] hr tablet 00 [facility] levothyroxi 2020-0 Yes [facility] ne 88 mcg 9-13 ity of tablet 00:00: [place] 00 [facility] levothyroxi 2020-0 Yes [facility] ne 75 mcg 9-13 ity of tablet 00:00: [place] 00 [facility] JARDIANCE 2020-0 Yes [facility] 25 mg Tab 9-13 ity of 00:00: [place] 00 [facility] traZODone 2020-0 Yes [facility] 100 mg 9-13 ity of tablet 00:00: [place] 00 [facility] metoprolol 2020-0 Yes [facility] succinate 9-13 ity of XL 50 mg 24 00:00: [place] hr tablet 00 [facility] levothyroxi 2020-0 Yes [facility] ne 88 mcg 9-13 ity of tablet 00:00: [place] [facility] levothyroxi 2020-0 Yes [facility] ne 75 mcg 9-13 ity of tablet 00:00: [place] [address] [facility] JARDIANCE 2020-0 Yes [facility] 25 mg Tab 9-13 ity of 00:00: [place] 00 [facility] traZODone 2020-0 Yes [facility] 100 mg 9-13 ity of tablet 00:00: [place] 00 [facility] metoprolol 2020-0 Yes [facility] succinate 9-13 ity of XL 50 mg 24 00:00: [place] hr tablet 00 [facility] levothyroxi 2020-0 Yes [facility] ne 88 mcg 9-13 ity of tablet 00:00: [place] 00 [facility] levothyroxi 2020-0 Yes [facility] ne 75 mcg 9-13 ity of tablet 00:00: [place] 00 [facility] JARDIANCE 2020-0 Yes [facility] 25 mg Tab 9-13 ity of 00:00: [place] 00 [facility] traZODone 2020-0 Yes [facility] 100 mg 9-13 ity of tablet 00:00: [place] 00 [facility] metoprolol 2020-0 Yes [facility] succinate 9-13 ity of XL 50 mg 24 00:00: [place] hr tablet 00 [facility] levothyroxi 2020-0 Yes Un[facility] s ne 88 mcg 9-13 ity of tablet 00:00: [place] 00 [facility] levothyroxi 2020-0 Yes [facility] ne 75 mcg 9-13 ity of tablet 00:00: [place] 00 [facility] JARDIANCE 2020-0 Yes [facility] 25 mg Tab 9-13 ity of 00:00: [place] 00 [facility] traZODone 2020-0 Yes [facility] 100 mg 9-13 ity of tablet 00:00: [place] 00 [facility] metoprolol 2020-0 Yes [facility] succinate 9-13 ity of XL 50 mg 24 00:00: [place] hr tablet 00 [facility] levothyroxi 2020-0 Yes [facility] ne 88 mcg 9-13 ity of tablet 00:00: [place] 00 [facility] levothyroxi 2020-0 Yes [facility] ne 75 mcg 9-13 ity of tablet 00:00: [place] 00 [facility] JARDIANCE 2020-0 Yes [facility] 25 mg Tab 9-13 ity of 00:00: [place] 00 [facility] traZODone 2020-0 Yes [facility] 100 mg 9-13 ity of tablet 00:00: [place] 00 [facility] metoprolol 2020-0 Yes [facility] succinate 9-13 ity of XL 50 mg 24 00:00: [place] hr tablet 00 [facility] levothyroxi 2020-0 Yes [facility] ne 88 mcg 9-13 ity of tablet 00:00: [place] [facility] levothyroxi 2020-0 Yes [facility] ne 75 mcg 9-13 ity of tablet 00:00: [place] 00 [facility] JARDIANCE 2020-0 Yes [facility] 25 mg Tab 9-13 ity of 00:00: [place] 00 [facility] traZODone 2020-0 Yes [facility] 100 mg 9-13 ity of tablet 00:00: [place] 00 [facility] metoprolol 2020-0 Yes [facility] succinate 9-13 ity of XL 50 mg 24 00:00: [place] hr tablet 00 [facility] levothyroxi 2020-0 Yes [facility] ne 88 mcg 9-13 ity of tablet 00:00: [place] 00 [facility] levothyroxi 2020-0 Yes [facility] ne 75 mcg 9-13 ity of tablet 00:00: [place] 00 [facility] JARDIANCE 2020-0 Yes [facility] 25 mg Tab 9-13 ity of 00:00: [place] 00 [facility] traZODone 2020-0 Yes [facility] 100 mg 9-13 ity of tablet 00:00: [place] 00 [facility] metoprolol 2020-0 Yes [facility] succinate 9-13 ity of XL 50 mg 24 00:00: [place] hr tablet 00 [facility] levothyroxi 2020-0 Yes [facility] s ne 88 mcg 9-13 ity of tablet 00:00: [place] 00 [facility] levothyroxi 2020-0 Yes [facility] ne 75 mcg 9-13 ity of tablet 00:00: [place] 00 [facility] JARDIANCE 2020-0 Yes [facility] 25 mg Tab 9-13 ity of 00:00: [place] 00 [facility] traZODone 2020-0 Yes [facility] 100 mg 9-13 ity of tablet 00:00: [place] 00 [facility] metoprolol 2020-0 Yes [facility] succinate 9-13 ity of XL 50 mg 24 00:00: [place] hr tablet 00 [facility] levothyroxi 2020-0 Yes [facility] ne 88 mcg 9-13 ity of tablet 00:00: [place] 00 [facility] levothyroxi 2020-0 Yes [facility] ne 75 mcg 9-13 ity of tablet 00:00: [place] 00 [facility] JARDIANCE 2020-0 Yes [facility] 25 mg Tab 9-13 ity of 00:00: [place] 00 [facility] traZODone 2020-0 Yes [facility] 100 mg 9-13 ity of tablet 00:00: [place] 00 [facility] metoprolol 2020-0 Yes [facility] succinate 9-13 ity of XL 50 mg 24 00:00: [place] hr tablet 00 [facility] levothyroxi 2020-0 Yes [facility] ne 88 mcg 9-13 ity of tablet 00:00: [place] 00 [facility] levothyroxi 2020-0 Yes [facility] ne 75 mcg 9-13 ity of tablet 00:00: [place] 00 [facility] JARDIANCE 2020-0 Yes [facility] 25 mg Tab 9-13 ity of 00:00: [place] 00 [facility] traZODone 2020-0 Yes [facility] 100 mg 9-13 ity of tablet 00:00: [place] 00 [facility] metoprolol 2020-0 Yes [facility] succinate 9-13 ity of XL 50 mg 24 00:00: [place] hr tablet 00 [facility] levothyroxi 2020-0 Yes [facility] ne 88 mcg 9-13 ity of tablet 00:00: [place] 00 [facility] levothyroxi 2020-0 Yes [facility] ne 75 mcg 9-13 ity of tablet 00:00: [place] 00 [facility] JARDIANCE 2020-0 Yes [facility] 25 mg Tab 9-13 ity of 00:00: [place] 00 [facility] traZODone 2020-0 Yes [facility] 100 mg 9-13 ity of tablet 00:00: [place] 00 [facility] metoprolol 2020-0 Yes [facility] succinate 9-13 ity of XL 50 mg 24 00:00: [place] hr tablet 00 [facility] levothyroxi 2020-0 Yes [facility] ne 88 mcg 9-13 ity of tablet 00:00: [place] 00 [facility] levothyroxi 2020-0 Yes [facility] ne 75 mcg 9-13 ity of tablet 00:00: [place] 00 [facility] JARDIANCE 2020-0 Yes [facility] 25 mg Tab 9-13 ity of 00:00: [place] 00 [facility] traZODone 2020-0 Yes [facility] 100 mg 9-13 ity of tablet 00:00: [place] [address] [facility] metoprolol 2020-0 Yes [facility] succinate 9-13 ity of XL 50 mg 24 00:00: [place] hr tablet 00 [facility] levothyroxi 2020-0 Yes [facility] ne 88 mcg 9-13 ity of tablet 00:00: [place] [address] [facility] levothyroxi 2020-0 Yes [facility] ne 75 mcg 9-13 ity of tablet 00:00: [place] [address] [facility] JARDIANCE 2020-0 Yes [facility] 25 mg Tab 9-13 ity of 00:00: [place] 00 [facility] traZODone 2020-0 Yes [facility] 100 mg 9-13 ity of tablet 00:00: [place] 00 [facility] metoprolol 2020-0 Yes [facility] succinate 9-13 ity of XL 50 mg 24 00:00: [place] hr tablet 00 [facility] levothyroxi 2020-0 Yes [facility] ne 88 mcg 9-13 ity of tablet 00:00: [place] 00 [facility] levothyroxi 2020-0 Yes [facility] ne 75 mcg 9-13 ity of tablet 00:00: [place] [address] [facility] JARDIANCE 2020-0 Yes [facility] 25 mg Tab 9-13 ity of 00:00: [place] 00 [facility] traZODone 2020-0 Yes [facility] 100 mg 9-13 ity of tablet 00:00: [place] 00 [facility] metoprolol 2020-0 Yes [facility] succinate 9-13 ity of XL 50 mg 24 00:00: [place] hr tablet 00 [facility] levothyroxi 2020-0 Yes [facility] ne 88 mcg 9-13 ity of tablet 00:00: [place] 00 [facility] levothyroxi 2020-0 Yes [facility] ne 75 mcg 9-13 ity of tablet 00:00: [place] 00 [facility] JARDIANCE 2020-0 Yes [facility] 25 mg Tab 9-13 ity of 00:00: [place] 00 [facility] traZODone 2020-0 Yes [facility] 100 mg 9-13 ity of tablet 00:00: [place] 00 [facility] metoprolol 2020-0 Yes [facility] succinate 9-13 ity of XL 50 mg 24 00:00: [place] hr tablet 00 [facility] levothyroxi 2020-0 Yes [facility] ne 88 mcg 9-13 ity of tablet 00:00: [place] 00 [facility] levothyroxi 2020-0 Yes [facility] ne 75 mcg 9-13 ity of tablet 00:00: [place] 00 [facility] JARDIANCE 2020-0 Yes [facility] 25 mg Tab 9-13 ity of 00:00: [place] 00 [facility] traZODone 2020-0 Yes [facility] 100 mg 9-13 ity of tablet 00:00: [place] 00 [facility] metoprolol 2020-0 Yes [facility] succinate 9-13 ity of XL 50 mg 24 00:00: [place] hr tablet 00 [facility] levothyroxi 2020-0 Yes [facility] ne 88 mcg 9-13 ity of tablet 00:00: [place] 00 [facility] levothyroxi 2020-0 Yes [facility] ne 75 mcg 9-13 ity of tablet 00:00: [place] 00 [facility] JARDIANCE 2020-0 Yes [facility] 25 mg Tab 9-13 ity of 00:00: [place] 00 [facility] traZODone 2020-0 Yes [facility] 100 mg 9-13 ity of tablet 00:00: [place] 00 [facility] metoprolol 2020-0 Yes [facility] succinate 9-13 ity of XL 50 mg 24 00:00: [place] hr tablet 00 [facility] levothyroxi 2020-0 Yes [facility] ne 88 mcg 9-13 ity of tablet 00:00: [place] 00 [facility] levothyroxi 2020-0 Yes [facility] ne 75 mcg 9-13 ity of tablet 00:00: [place] 00 [facility] JARDIANCE 2020-0 Yes [facility] 25 mg Tab 9-13 ity of 00:00: [place] 00 [facility] traZODone 2020-0 Yes [facility] 100 mg 9-13 ity of tablet 00:00: [place] 00 [facility] metoprolol 2020-0 Yes [facility] succinate 9-13 ity of XL 50 mg 24 00:00: [place] hr tablet 00 [facility] levothyroxi 2020-0 Yes [facility] s ne 88 mcg 9-13 ity of tablet 00:00: [place] 00 [facility] levothyroxi 2020-0 Yes [facility] ne 75 mcg 9-13 ity of tablet 00:00: [place] 00 [facility] JARDIANCE 2020-0 Yes [facility] 25 mg Tab 9-13 ity of 00:00: [place] 00 [facility] traZODone 2020-0 Yes [facility] 100 mg 9-13 ity of tablet 00:00: [place] 00 [facility] metoprolol 2020-0 Yes [facility] succinate 9-13 ity of XL 50 mg 24 00:00: [place] hr tablet 00 [facility] levothyroxi 2020-0 Yes [facility] ne 88 mcg 9-13 ity of tablet 00:00: [place] 00 [facility] levothyroxi 2020-0 Yes [facility] ne 75 mcg 9-13 ity of tablet 00:00: [place] [address] [facility] JARDIANCE 2020-0 Yes [facility] 25 mg Tab 9-13 ity of 00:00: [place] 00 [facility] traZODone 2020-0 Yes [facility] 100 mg 9-13 ity of tablet 00:00: [place] 00 [facility] metoprolol 2020-0 Yes [facility] succinate 9-13 ity of XL 50 mg 24 00:00: [place] hr tablet 00 [facility] levothyroxi 2020-0 Yes [facility] ne 88 mcg 9-13 ity of tablet 00:00: [place] 00 [facility] levothyroxi 2020-0 Yes [facility] ne 75 mcg 9-13 ity of tablet 00:00: [place] 00 [facility] JARDIANCE 2020-0 Yes [facility] 25 mg Tab 9-13 ity of 00:00: [place] 00 [facility] traZODone 2020-0 Yes [facility] 100 mg 9-13 ity of tablet 00:00: [place] 00 [facility] metoprolol 2020-0 Yes [facility] succinate 9-13 ity of XL 50 mg 24 00:00: [place] hr tablet 00 [facility] levothyroxi 2020-0 Yes [facility] ne 88 mcg 9-13 ity of tablet 00:00: [place] 00 [facility] levothyroxi 2020-0 Yes [facility] ne 75 mcg 9-13 ity of tablet 00:00: [place] 00 [facility] JARDIANCE 2020-0 Yes [facility] 25 mg Tab 9-13 ity of 00:00: [place] 00 [facility] traZODone 2020-0 Yes [facility] 100 mg 9-13 ity of tablet 00:00: [place] 00 [facility] metoprolol 2020-0 Yes [facility] succinate 9-13 ity of XL 50 mg 24 00:00: [place] hr tablet 00 [facility] levothyroxi 2020-0 Yes [facility] ne 88 mcg 9-13 ity of tablet 00:00: [place] 00 [facility] levothyroxi 2020-0 Yes [facility] ne 75 mcg 9-13 ity of tablet 00:00: [place] 00 [facility] JARDIANCE 2020-0 Yes [facility] 25 mg Tab 9-13 ity of 00:00: [place] 00 [facility] traZODone 2020-0 Yes [facility] 100 mg 9-13 ity of tablet 00:00: [place] 00 [facility] metoprolol 2020-0 Yes [facility] succinate 9-13 ity of XL 50 mg 24 00:00: [place] hr tablet 00 [facility] levothyroxi 2020-0 Yes [facility] s ne 88 mcg 9-13 ity of tablet 00:00: [place] 00 [facility] levothyroxi 2020-0 Yes [facility] ne 75 mcg 9-13 ity of tablet 00:00: [place] 00 [facility] JARDIANCE 2020-0 Yes [facility] 25 mg Tab 9-13 ity of 00:00: [place] 00 [facility] traZODone 2020-0 Yes [facility] 100 mg 9-13 ity of tablet 00:00: [place] 00 [facility] metoprolol 2020-0 Yes [facility] succinate 9-13 ity of XL 50 mg 24 00:00: [place] hr tablet 00 [facility] levothyroxi 2020-0 Yes [facility] s ne 88 mcg 9-13 ity of tablet 00:00: [place] 00 [facility] levothyroxi 2020-0 Yes [facility] ne 75 mcg 9-13 ity of tablet 00:00: [place] 00 [facility] JARDIANCE 2020-0 Yes [facility] 25 mg Tab 9-13 ity of 00:00: [place] 00 [facility] traZODone 2020-0 Yes [facility] 100 mg 9-13 ity of tablet 00:00: [place] 00 [facility] metoprolol 2020-0 Yes [facility] succinate 9-13 ity of XL 50 mg 24 00:00: [place] hr tablet 00 [facility] levothyroxi 2020-0 Yes [facility] s ne 88 mcg 9-13 ity of tablet 00:00: [place] 00 [facility] levothyroxi 2020-0 Yes Univer [...] by mouth ity of 00:00: every 8 00 (eight) Medical hours as Branch needed. ondansetron [...] of tablet 00:00: MOUTH ONCE 00 DAILY WITH Medical FOOD Branch ondansetron 2020-0 Yes TAKE 1 [facility] ers 4 mg tablet 9-05 TABLET BY ity of 00:00: MOUTH [place] 00 EVERY 12 Medical HOURS Branch NEEDED meloxicam 2020-0 Yes TAKE 1 [facility] s 7.5 mg 9-05 TABLET BY ity of tablet 00:00: MOUTH ONCE 00 DAILY WITH Medical FOOD Branch ondansetron 2020-0 Yes TAKE 1 [facility] ers 4 mg tablet 9-05 TABLET BY ity of 00:00: MOUTH [place] 00 EVERY 12 Medical HOURS Branch NEEDED meloxicam 2020-0 Yes TAKE 1 [facility] 7.5 mg 9-05 TABLET BY ity of tablet 00:00: MOUTH ONCE 00 DAILY WITH Medical FOOD Branch ondansetron 2019-0 Yes TAKE 1 [facility] ers 4 mg tablet 9-05 TABLET BY ity of 00:00: MOUTH [place] 00 EVERY 12 Medical HOURS Branch NEEDED traMADoL 50 2019-0 2020- No 50mg Take 50 mg [facility] mg tablet 04-26 by mouth ity o f 00:00: 00:00 every 8 [place] 00 :00 (eight) Medical hours as Branch needed. traMADoL 50 2019-0 2020- No 50mg Take 50 mg [facility] mg tablet 04-26 by mouth ity o f 00:00: 00:00 every 8 [place] 00 :00 (eight) Medical hours as Branch needed. traMADoL 50 2020-0 2020- No 50mg Take 50 mg [facility] mg tablet 04-26 by mouth ity o f 00:00: 00:00 every 8 [place] 00 :00 (eight) Medical hours as Branch needed. lisinopriL 2020-0 Yes TAKE 1 Unive rs [...] FOR Medical 90 DAYS Branch NOVOLIN N 0 Yes INJECT 65 Uni [...] Branch DIRECTED FOR 90 DAYS NOVOLIN N 2019-0 Yes INJECT 65 Uni vers NPH U-100 7-31 UNITS ity of INSULIN 100 00:00: SUBCUTANEO [place] unit/mL 00 USLY ONCE Medical injection DAILY Branch DIRECTED FOR 90 DAYS NOVOLIN N 2019-0 Yes INJECT 65 [facility] vers NPH U-100 7-31 UNITS ity of INSULIN 100 00:00: SUBCUTANEO [place] unit/mL 00 USLY ONCE Medical injection DAILY Branch DIRECTED FOR 90 DAYS NOVOLIN N 2019-0 Yes INJECT 65 [facility] vers NPH U-100 [...] Branch DIRECTED FOR 90 DAYS NOVOLIN N 2019-0 Yes INJECT 65 [facility] vers NPH U-100 [...] DAILY Branch DIRECTED FOR 90 DAYS furosemide Yes TAKE 1 [facility] rs 20 mg [...] 00:00: MOUTH ONCE [place] 00 DAILY IN [facility] THE Branch EVENING FOR 90 DAYS atorvastati 2020-0 Yes TAKE 1 [facility] ers n 40 mg 7-13 TABLET BY ity of tablet 00:00: MOUTH ONCE [place] 00 DAILY IN Medical THE [place] EVENING FOR 90 DAYS atorvastati 2020-0 Yes TAKE 1 [facility] ers n 40 mg 7-13 TABLET BY ity of tablet 00:00: MOUTH ONCE [place] 00 DAILY IN [facility] EVENING FOR 90 DAYS atorvastati 2020-0 Yes TAKE 1 [facility] ers n 40 mg 7-13 TABLET BY ity of tablet 00:00: MOUTH ONCE [place] 00 DAILY IN [facility] EVENING FOR 90 DAYS atorvastati 2020-0 Yes TAKE 1 [facility] ers n 40 mg 7-13 TABLET BY ity of tablet 00:00: MOUTH ONCE [place] 00 DAILY IN [facility] EVENING FOR 90 DAYS atorvastati 2020-0 Yes TAKE 1 Univ ers n 40 mg 7-13 TABLET BY ity of tablet 00:00: MOUTH ONCE [place] 00 DAILY IN [facility] EVENING FOR 90 DAYS atorvastati 2020-0 Yes TAKE 1 [facility] n 40 mg 7-13 TABLET BY ity of tablet 00:00: MOUTH ONCE [place] 00 DAILY IN [facility] EVENING FOR 90 DAYS atorvastati 2020-0 Yes TAKE 1 [facility] n 40 mg 7-13 TABLET BY ity of tablet 00:00: MOUTH ONCE [place] 00 DAILY IN [facility] EVENING FOR 90 DAYS atorvastati 2020-0 Yes TAKE 1 [facility] n 40 mg 7-13 TABLET BY ity of tablet 00:00: MOUTH ONCE [place] 00 DAILY IN [facility] EVENING FOR 90 DAYS atorvastati 2020-0 Yes TAKE 1 [facility] n 40 mg 7-13 TABLET BY ity of tablet 00:00: MOUTH ONCE [place] 00 DAILY IN [facility] EVENING FOR 90 DAYS atorvastati 2020-0 Yes TAKE 1 [facility] n 40 mg 7-13 TABLET BY ity of tablet 00:00: MOUTH ONCE [place] 00 DAILY IN [facility] EVENING FOR 90 DAYS atorvastati 2020-0 Yes TAKE 1 [facility] n 40 mg 7-13 TABLET BY ity of tablet 00:00: MOUTH ONCE [place] 00 DAILY IN [facility] EVENING FOR 90 DAYS atorvastati 2020-0 Yes TAKE 1 [facility] n 40 mg 7-13 TABLET BY ity of tablet 00:00: MOUTH ONCE [place] 00 DAILY IN [facility] EVENING FOR 90 DAYS atorvastati 2020-0 Yes TAKE 1 [facility] n 40 mg 7-13 TABLET BY ity of tablet 00:00: MOUTH ONCE [place] 00 DAILY IN [facility] EVENING FOR 90 DAYS atorvastati 2020-0 Yes TAKE 1 [facility] n 40 mg 7-13 TABLET BY ity of tablet 00:00: MOUTH ONCE [place] 00 DAILY IN [facility] EVENING FOR 90 DAYS atorvastati 2020-0 Yes TAKE 1 [facility] n 40 mg 7-13 TABLET BY ity of tablet 00:00: MOUTH ONCE [place] 00 DAILY IN [facility] EVENING FOR 90 DAYS atorvastati 2020-0 Yes TAKE 1 [facility] n 40 mg 7-13 TABLET BY ity of tablet 00:00: MOUTH ONCE [place] 00 DAILY IN [facility] EVENING FOR 90 DAYS atorvastati 2020-0 Yes TAKE 1 [facility] n 40 mg 7-13 TABLET BY ity of tablet 00:00: MOUTH ONCE [place] 00 DAILY IN [facility] EVENING FOR 90 DAYS atorvastati 2020-0 Yes TAKE 1 [facility] n 40 mg 7-13 TABLET BY ity of tablet 00:00: MOUTH ONCE [place] 00 DAILY IN [facility] EVENING FOR 90 DAYS atorvastati 2020-0 Yes TAKE 1 [facility] n 40 mg 7-13 TABLET BY ity of tablet 00:00: MOUTH ONCE [place] 00 DAILY IN [facility] EVENING FOR 90 DAYS atorvastati 2020-0 Yes TAKE 1 [facility] n 40 mg 7-13 TABLET BY ity of tablet 00:00: MOUTH ONCE [place] 00 DAILY IN [facility] EVENING FOR 90 DAYS atorvastati 2020-0 Yes TAKE 1 [facility] n 40 mg 7-13 TABLET BY ity of tablet 00:00: MOUTH ONCE [place] 00 DAILY IN [facility] EVENING FOR 90 DAYS atorvastati 2020-0 Yes TAKE 1 [facility] n 40 mg 7-13 TABLET BY ity of tablet 00:00: MOUTH ONCE [place] 00 DAILY IN [facility] EVENING FOR 90 DAYS atorvastati 2020-0 Yes TAKE 1 [facility] n 40 mg 7-13 TABLET BY ity of tablet 00:00: MOUTH ONCE [place] 00 DAILY IN [facility] EVENING FOR 90 DAYS atorvastati 2020-0 Yes TAKE 1 [facility] n 40 mg 7-13 TABLET BY ity of tablet 00:00: MOUTH ONCE [place] 00 DAILY IN [facility] EVENING FOR 90 DAYS atorvastati 2020-0 Yes TAKE 1 [facility] n 40 mg 7-13 TABLET BY ity of tablet 00:00: MOUTH ONCE [place] 00 DAILY IN [facility] EVENING FOR 90 DAYS atorvastati 2020-0 Yes TAKE 1 [facility] n 40 mg 7-13 TABLET BY ity of tablet 00:00: MOUTH ONCE [place] 00 DAILY IN [facility] EVENING FOR 90 DAYS atorvastati 2020-0 Yes TAKE 1 [facility] n 40 mg 7-13 TABLET BY ity of tablet 00:00: MOUTH ONCE [place] 00 DAILY IN [facility] EVENING FOR 90 DAYS atorvastati 2020-0 Yes TAKE 1 [facility] n 40 mg 7-13 TABLET BY ity of tablet 00:00: MOUTH ONCE [place] 00 DAILY IN [facility] EVENING FOR 90 DAYS atorvastati 2020-0 Yes TAKE 1 [facility] n 40 mg 7-13 TABLET BY ity of tablet 00:00: MOUTH ONCE [place] 00 DAILY IN [facility] EVENING FOR 90 DAYS atorvastati 2020-0 Yes TAKE 1 [facility] n 40 mg 7-13 TABLET BY ity of tablet 00:00: MOUTH ONCE [place] 00 DAILY IN [facility] EVENING FOR 90 DAYS atorvastati 2020-0 Yes TAKE 1 [facility] n 40 mg 7-13 TABLET BY ity of tablet 00:00: MOUTH ONCE [place] 00 DAILY IN [facility] EVENING FOR 90 DAYS atorvastati 2020-0 Yes TAKE 1 [facility] n 40 mg 7-13 TABLET BY ity of tablet 00:00: MOUTH ONCE [place] 00 DAILY IN [facility] EVENING FOR 90 DAYS atorvastati 2020-0 Yes TAKE 1 [facility] n 40 mg 7-13 TABLET BY ity of tablet 00:00: MOUTH ONCE [place] 00 DAILY IN [facility] EVENING FOR 90 DAYS atorvastati 2020-0 Yes TAKE 1 [facility] n 40 mg 7-13 TABLET BY ity of tablet 00:00: MOUTH ONCE [place] 00 DAILY IN [facility] EVENING FOR 90 DAYS atorvastati 2020-0 Yes TAKE 1 [facility] n 40 mg 7-13 TABLET BY ity of tablet 00:00: MOUTH ONCE [place] 00 DAILY IN [facility] EVENING FOR 90 DAYS atorvastati 2020-0 Yes TAKE 1 [facility] n 40 mg 7-13 TABLET BY ity of tablet 00:00: MOUTH ONCE [place] 00 DAILY IN [facility] EVENING FOR 90 DAYS atorvastati 2020-0 Yes TAKE 1 [facility] n 40 mg 7-13 TABLET BY ity of tablet 00:00: MOUTH ONCE [place] 00 DAILY IN [facility] EVENING FOR 90 DAYS atorvastati 2020-0 Yes TAKE 1 [facility] n 40 mg 7-13 TABLET BY ity of tablet 00:00: MOUTH ONCE [place] 00 DAILY IN [facility] EVENING FOR 90 DAYS atorvastati 2020-0 Yes TAKE 1 [facility] 40 mg 7-13 TABLET BY ity of tablet 00:00: MOUTH ONCE [place] 00 DAILY IN [facility] EVENING FOR 90 DAYS atorvastati 2020-0 Yes TAKE 1 [facility] 40 mg 7-13 TABLET BY ity of tablet 00:00: MOUTH ONCE [place] 00 DAILY IN [facility] EVENING FOR 90 DAYS atorvastati 2020-0 Yes TAKE 1 [facility] n 40 mg 7-13 TABLET BY ity of tablet 00:00: MOUTH ONCE [place] 00 DAILY IN [facility] EVENING FOR 90 DAYS atorvastati 2020-0 Yes TAKE 1 [facility] n 40 mg 7-13 TABLET BY ity of tablet 00:00: MOUTH ONCE [place] 00 DAILY IN [facility] EVENING FOR 90 DAYS atorvastati 2020-0 Yes TAKE 1 [facility] n 40 mg 7-13 TABLET BY ity of tablet 00:00: MOUTH ONCE [place] 00 DAILY IN [facility] EVENING FOR 90 DAYS atorvastati 2020-0 Yes TAKE 1 [facility] n 40 mg 7-13 TABLET BY ity of tablet 00:00: MOUTH ONCE [place] 00 DAILY IN [facility] EVENING FOR 90 DAYS atorvastati 2020-0 Yes TAKE 1 [facility] n 40 mg 7-13 TABLET BY ity of tablet 00:00: MOUTH ONCE [place] 00 DAILY IN [facility] EVENING FOR 90 DAYS atorvastati 2020-0 Yes TAKE 1 [facility] n 40 mg 7-13 TABLET BY ity of tablet 00:00: MOUTH ONCE [place] 00 DAILY IN [facility] EVENING FOR 90 DAYS atorvastati 2020-0 Yes TAKE 1 [facility] 40 mg 7-13 TABLET BY ity of tablet 00:00: MOUTH ONCE [place] 00 DAILY IN [facility] EVENING FOR 90 DAYS atorvastati 2020-0 Yes TAKE 1 [facility] 40 mg 7-13 TABLET BY ity of tablet 00:00: MOUTH ONCE [place] 00 DAILY IN [facility] EVENING FOR 90 DAYS atorvastati 2020-0 Yes TAKE 1 [facility] 40 mg 7-13 TABLET BY ity of tablet 00:00: MOUTH ONCE [place] 00 DAILY IN [facility] EVENING FOR 90 DAYS atorvastati 2020-0 Yes TAKE 1 [facility] 40 mg 7-13 TABLET BY ity of tablet 00:00: MOUTH ONCE [place] 00 DAILY IN [facility] EVENING FOR 90 DAYS atorvastati 2020-0 Yes TAKE 1 [facility] 40 mg 7-13 TABLET BY ity of tablet 00:00: MOUTH ONCE [place] 00 DAILY IN [facility] EVENING FOR 90 DAYS atorvastati 2020-0 Yes TAKE 1 [facility] 40 mg 7-13 TABLET BY ity of tablet 00:00: MOUTH ONCE [place] 00 DAILY IN [facility] EVENING FOR 90 DAYS atorvastati 2020-0 Yes TAKE 1 [facility] 40 mg 7-13 TABLET BY ity of tablet 00:00: MOUTH ONCE [place] 00 DAILY IN [facility] EVENING FOR 90 DAYS atorvastati 2020-0 Yes TAKE 1 [facility] n 40 mg 7-13 TABLET BY ity of tablet 00:00: MOUTH ONCE [place] 00 DAILY IN [facility] EVENING FOR 90 DAYS atorvastati 2020-0 Yes TAKE 1 [facility] 40 mg 7-13 TABLET BY ity of tablet 00:00: MOUTH ONCE [place] 00 DAILY IN [facility] EVENING FOR 90 DAYS atorvastati 2020-0 Yes TAKE 1 [facility] 40 mg 7-13 TABLET BY ity of tablet 00:00: MOUTH ONCE [place] 00 DAILY IN [facility] EVENING FOR 90 DAYS atorvastati 2020-0 Yes TAKE 1 [facility] 40 mg 7-13 TABLET BY ity of tablet 00:00: MOUTH ONCE [place] 00 DAILY IN [facility] EVENING FOR 90 DAYS atorvastati 2020-0 Yes TAKE 1 [facility] 40 mg 7-13 TABLET BY ity of tablet 00:00: MOUTH ONCE [place] 00 DAILY IN [facility] EVENING FOR 90 DAYS atorvastati 2020-0 Yes TAKE 1 [facility] 40 mg 7-13 TABLET BY ity of tablet 00:00: MOUTH ONCE [place] 00 DAILY IN [facility] EVENING FOR 90 DAYS atorvastati 2020-0 Yes TAKE 1 [facility] 40 mg 7-13 TABLET BY ity of tablet 00:00: MOUTH ONCE [place] 00 DAILY IN [facility] EVENING FOR 90 DAYS atorvastati 2020-0 Yes TAKE 1 [facility] 40 mg 7-13 TABLET BY ity of tablet 00:00: MOUTH ONCE [place] 00 DAILY IN [facility] EVENING FOR 90 DAYS atorvastati 2020-0 Yes TAKE 1 [facility] 40 mg 7-13 TABLET BY ity of tablet 00:00: MOUTH ONCE [place] 00 DAILY IN [facility] EVENING FOR 90 DAYS atorvastati 2020-0 Yes TAKE 1 [facility] 40 mg 7-13 TABLET BY ity of tablet 00:00: MOUTH ONCE [place] 00 DAILY IN [facility] EVENING FOR 90 DAYS atorvastati 2020-0 Yes TAKE 1 [facility] 40 mg 7-13 TABLET BY ity of tablet 00:00: MOUTH ONCE [place] 00 DAILY IN [facility] EVENING FOR 90 DAYS atorvastati 2020-0 Yes TAKE 1 [facility] 40 mg 7-13 TABLET BY ity of tablet 00:00: MOUTH ONCE [place] 00 DAILY IN [facility] EVENING FOR 90 DAYS atorvastati 2020-0 Yes TAKE 1 [facility] n 40 mg 7-13 TABLET BY ity of tablet 00:00: MOUTH ONCE [place] 00 DAILY IN [facility] EVENING FOR 90 DAYS atorvastati 2020-0 Yes TAKE 1 [facility] 40 mg 7-13 TABLET BY ity of tablet 00:00: MOUTH ONCE [place] 00 DAILY IN [facility] EVENING FOR 90 DAYS atorvastati 2020-0 Yes TAKE 1 [facility] 40 mg 7-13 TABLET BY ity of tablet 00:00: MOUTH ONCE [place] 00 DAILY IN [facility] EVENING FOR 90 DAYS atorvastati 2020-0 Yes TAKE 1 [facility] 40 mg 7-13 TABLET BY ity of tablet 00:00: MOUTH ONCE [place] 00 DAILY IN [facility] EVENING FOR 90 DAYS Zofran 4 MG Zofran 4 MG 2020-0 No 1{table Zofran 4 6-30 t} MG 00:00: 00 Zofran 4 MG Zofran 4 MG 2020-0 No 1{table Zofran 4 6-30 t} MG 00:00: 00 Zofran 4 MG Zofran 4 MG 2020-0 No 1{table Zofran 4 6-30 t} MG 00:00: 00 Zofran 4 MG Zofran 4 MG 2020-0 No 1{table 6-30 t} 00:00: 00 Zofran 4 MG Zofran 4 MG 2020-0 No 1{table Zofran 4 6-30 t} MG 00:00: 00 Zofran 4 MG Zofran 4 MG 2020-0 No 1{table Zofran 4 6-30 t} MG 00:00: 00 Zofran 4 MG Zofran 4 MG 2020-0 No 1{table Zofran 4 6-30 t} MG 00:00: 00 Zofran 4 MG Zofran 4 MG 2020-0 No 1{table Zofran 4 6-30 t} MG 00:00: 00 Zofran 4 MG Zofran 4 MG 2020-0 No 1{table Zofran 4 6-30 t} MG 00:00: 00 Zofran 4 MG Zofran 4 MG 2020-0 No 1{table Zofran 4 6-30 t} MG 00:00: 00 Zofran 4 MG Zofran 4 MG 2020-0 No 1{table Zofran 4 6-30 t} MG 00:00: 00 Zofran 4 MG Zofran 4 MG 2020-0 No 1{table Zofran 4 6-30 t} MG 00:00: 00 busPIRone 5 2020-0 Yes TAKE 1 Univ [...] DAILY FOR Branch 90 DAYS busPIRone 5 2019-0 Yes TAKE 1 [facility] mg tablet 6-19 TABLET BY ity o f 00:00: MOUTH [place] 00 TWICE Medical DAILY FOR Branch 90 DAYS busPIRone 5 2019-0 Yes TAKE 1 [facility] mg tablet 6-19 TABLET BY ity o f 00:00: MOUTH [place] 00 TWICE Medical DAILY FOR Branch 90 DAYS busPIRone 5 2019-0 Yes TAKE 1 [facility] mg tablet 6-19 TABLET BY ity o f 00:00: MOUTH [place] 00 TWICE Medical DAILY FOR Branch 90 DAYS busPIRone 5 2019-0 Yes TAKE 1 [facility] mg tablet 6-19 TABLET BY ity o f 00:00: MOUTH [place] 00 TWICE Medical DAILY FOR Branch 90 DAYS busPIRone 5 2019-0 Yes TAKE 1 [facility] ers mg tablet [...] DAILY FOR Branch 90 DAYS busPIRone 5 2019-0 Yes TAKE 1 [facility] mg tablet 6-19 TABLET BY ity o f 00:00: MOUTH [place] 00 TWICE Medical DAILY FOR Branch 90 DAYS Belsomra 10 Belsomra 10 2018- No 1{table QD B[place]ra MG MG 0-17 t_at_be 10 MG 00:00: dtime_a 00 s_neede d} Belsomra 10 Belsomra 10 2018-08 No 1{table QD [place]ra MG MG 0-17 t_at_be 10 MG 00:00: dtime_a 00 s_neede d} metoprolol Yes Essential 50mg QD Take 1 [place] succinate 9-07 hypertensio tablet by [facility] (TOPROL XL) 00:00: n mouth 50 mg 00 daily. extended release tablet ibuprofen Yes Musculoskel 800mg Take 1 [place] (MOTRIN) 8-14 etal pain tablet by ealth 800 mg 00:00: mouth tablet 00 every 8 hours as needed for Pain. methocarbam Yes Spasm of 750mg Take 1 [place] ol 7- muscle tablet by [facility] (ROBAXIN) 00:00: mouth 3 750 mg 00 times tablet daily. blood Yes Type 2 Check [place] glucose 02-27 diabetes blood Health test strips 00:00: mellitus glucose 3 00 with other times specified daily. complicatio n lisinopril Yes Chronic 20mg QD Take 1 [place] r[place] (PRINIVIL) 02-27 combined tablet by [facility] 20 mg 00:00: systolic mouth tablet 00 and daily. diastolic congestive heart failure traZODone Yes Insomnia, 50mg Take 1 H [facility] (DESYREL) 02-27 unspecified tablet by [facility] 50 mg 00:00: type mouth at tablet 00 bedtime nightly. insulin NPH Yes Uncontrolle 70U Q.5D Inject 70 [place] 100 unit/mL 5-21 d type 2 Units Hea lth injection 00:00: diabetes under the 00 mellitus skin 2 with both times eyes daily affected by (before proliferati meals). ve retinopathy and macular edema, with long-term current use of insulin ketoconazol Yes Seborrheic Apply to [facility] (NIZORAL) 5-21 dermatitis, scalp, Health 2 % shampoo 00:00: unspecified lather and 00 leave in for 15 minutes, then rinse off, use twice a week. triamcinolo Yes Psoriasifor Q.5D Apply to [place] ne 5-21 m affected Health (KENALOG) 00:00: dermatitis area 2 0.025 % 00 times topical daily. cream prednisoLON Yes Right eye 1[drp] Instill 1 [place] E acetate 4-17 affected by Drop in Health (PRED 00:00: proliferati right eye FORTE) 1 % 00 ve diabetic 4 times ophthalmic retinopathy daily. suspension with traction retinal detachment not involving macula, associated with type 2 diabetes mellitus ofloxacin 2017- Yes Right eye 1[drp] Instill 1 [place] (OCUFLOX) 4-17 affected by Drop in Health 0.3 % 00:00: proliferati right eye ophthalmic 00 ve diabetic 4 times solution retinopathy daily. with traction retinal detachment not involving macula, associated with type 2 diabetes mellitus timolol 2017- Yes Right eye 1[drp] Q.5D Instill 1 [place] (TIMOPTIC) 4-17 affected by Drop in Health 0.5 % 00:00: proliferati right eye ophthalmic 00 ve diabetic 2 times solution retinopathy daily. with traction retinal detachment not involving macula, associated with type 2 diabetes mellitus omega 2017- Yes 1{capsu QD Take 1 [place] 3-dha-epa-f 4-16 le} capsule by [facility] satnam oil 13:10: mouth (FISH OIL) 01 daily. 900-1,400 mg CpDR FERROUS Yes Take by [place] SULFATE OR 4-16 mouth. Health 13:10: 01 metFORMIN Yes Uncontrolle 850mg Q.5D Take 1 [place] (GLUCOPHAGE 2-05 d type 2 tablet by [facility] ) 850 mg 00:00: diabetes mouth 2 tablet 00 mellitus times with both daily eyes (with affected by meals). proliferati ve retinopathy and macular edema, with long-term current use of insulin levothyroxi Yes Hypothyroid 50ug QD Take 1 [place] ne 2-05 ism, tablet by [facility] (SYNTHROID) 00:00: unspecified mouth 50 mcg 00 type daily Take tablet together with levothyrox ine 200mcg. atorvastati Yes Hyperlipide 40mg Take 1 [place] n (LIPITOR) 2-05 [place], tablet by [facility] lt 40 mg 00:00: unspecified mouth at tablet 00 hyperlipide bedtime [place] type nightly. furosemide Yes Essential 20mg QD Take 1 [place] (LASIX) 20 2-05 hypertensio tablet by [facility] mg tablet 00:00: n mouth 00 daily. levothyroxi Yes Hypothyroid 200ug QD Take 1 [place] ne 2-05 ism, tablet by [facility] (SYNTHROID) 00:00: unspecified mouth 200 mcg 00 type every tablet morning (before breakfast) Take together with levothyrox ine 50mcg. insulin Yes Uncontrolle Inject 20 [place] REGULAR 100 2-05 d type 2 units Hea lth unit/mL 00:00: diabetes under the injection 00 mellitus skin in with both the eyes morning, affected by 20 units proliferati at noon, ve and 20 retinopathy units in and macular the edema, with evening 30 long-term min before current use meal. Skip of insulin Novolin R if skipping a meal... citalopram Yes Depressed 40mg QD Take 2 [place] (CELEXA) 20 1-09 tablets by alth mg tablet 00:00: mouth 00 daily for depression . clotrimazol 2016-08 Yes Onychomycos Q.5D Apply to [place] e 2-19 is affected Health (LOTRIMIN) 00:00: area 2 1 % topical 00 times cream daily. INSULIN 2016-08 Yes Type 2 Q.5D Use to [place] SYRINGE 1mL 1-14 diabetes inject He alth 30GX5/16" 00:00: mellitus medication syringe-nee 00 with other 2 times dle specified daily. Use complicatio a new n, with syringe long-term each time. current use of insulin ammonium Yes Dry skin Apply to [facility] lactate 7-12 dermatitis affected He alth (AL12) 12 % 00:00: area as lotion 00 needed for dry skin 3 times a day. calcipotrie Yes Psoriasifor Q.5D Apply to [place] ne 7-12 m affected Health (DOVONEX) 00:00: dermatitis area 2 0.005 % 00 times topical daily. cream INSULIN Yes Type 2 Use to [place] SYRINGE 1mL 5-06 diabetes inject He alth 30GX5/16" 00:00: mellitus medication (MONOJECT 00 with other 3 times ULTRACOMFOR specified daily. Use T INSULIN complicatio a new SYR 1ML n syringe 30GX5/16") each time. syringe-nee dle blood 2014-08 Yes Type 2 Use as [place] glucose 0-14 diabetes directed.. He alth meter 00:00: mellitus 00 with complicatio n blood 2013-08 Yes Diabetes Q.5D Use twice [facility] glucose 0-08 mellitus daily. Health (PRECISION 00:00: type II, XTRA TEST 00 uncontrolle STRIPS) d test strips aspirin Yes CAD 81mg QD Chew 1 Tab Luis is (ASPIRIN) 3-20 (coronary by mouth H ealth 81 mg 00:00: artery daily. chewable 00 disease) tablet blood 2009-08 Yes Diabetes Use as [place] glucose 2-28 mellitus directed. Hea lth meter 00:00: type II, 00 uncontrolle d LANCETS 2009-08 Yes Diabetes Use as [place] is 2-28 mellitus Directed Health 00:00: type II, 00 uncontrolle d Furosemide Furosemide Yes Roseanne 1 tablet [facility] BD Veo BD Veo No BD Veo Insulin Insulin Insulin Syringe U/F Syringe U/F Syringe 31G X 31G X U/F 31G X /64" 1 ML " 1 ML " 1 ML Lisinopril Lisinopril No Lisinopril 40 MG 40 MG 40 MG Insulin Insulin No Insulin Syringe 31G Syringe 31G Syringe X /16" 1 X 516" 1 31G X ML ML 16" 1 ML Citalopram Citalopram No QD Citalopram Hydrobromid Hydrobromid Hydrobromi e 40 MG e 40 MG de 40 MG Levothyroxi Levothyroxi No QD Levothyrox ne Sodium ne Sodium ine Sodium 88 MCG 88 MCG 88 MCG Furosemide Furosemide No Furosemide 20 MG 20 MG 20 MG BD Insulin BD Insulin No BD Insulin Syringe U/F Syringe U/F Syringe 31G X /16" 31G X /16" U/F 31G X 1 ML 1 ML 16" 1 ML Vitamin C Vitamin C No Vitamin C Jardiance Jardiance No 1{table QD Jardiance 25 MG 25 MG t} 25 MG Vitamin D3 Vitamin D3 No Vitamin D3 busPIRone busPIRone No 1{table BID busPIRone HCl 5 MG HCl 5 MG t} HCl 5 MG Euthyrox 88 Euthyrox 88 No Euthyrox MCG MCG 88 MCG Novolin R Novolin R No QD Novolin R 100 UNIT/ML 100 UNIT/ML 100 UNIT/ML Vitamin C Vitamin C No Vitamin C traZODone traZODone No 1{table QD traZODone HCl 100 MG HCl 100 MG t_at_be HCl 100 MG dtime_a s_neede d} NovoLIN N NovoLIN N No QD NovoLIN N 100 UNIT/ML 100 UNIT/ML 100 UNIT/ML Gabapentin Gabapentin No 1{capsu Gabapentin 300 MG 300 MG le} 300 MG Levothyroxi Levothyroxi No QD Levothyrox ne Sodium ne Sodium ine Sodium 88 MCG 88 MCG 88 MCG Atorvastati Atorvastati No QD Atorvastat n Calcium n Calcium in Calcium 40 MG 40 MG 40 MG BD Veo BD Veo No BD Veo Insulin Insulin Insulin Syringe U/F Syringe U/F Syringe 31G X 31G X U/F 31G X " 1 ML " 1 ML " 1 ML BD Insulin BD Insulin No BD Insulin Syringe U/F Syringe U/F Syringe 31G X 01/04" 31G X 01/04" U/F 31G X 1 ML 1 ML 01/04" 1 ML Lisinopril Lisinopril No Lisinopril 40 MG 40 MG 40 MG Insulin Insulin No Insulin Syringe 31G Syringe 31G Syringe X 01/04" 1 X 01/04" 1 31G X ML ML 01/04" 1 ML busPIRone busPIRone No 1{table BID busPIRone HCl 5 MG HCl 5 MG t} HCl 5 MG Liothyronin Liothyronin No 1{table QD Liothyroni e Sodium 25 e Sodium 25 t_on_an ne Sodium MCG MCG _empty_ 25 MCG stomach } Furosemide Furosemide No Furosemide 20 MG 20 MG 20 MG Citalopram Citalopram No QD Citalopram Hydrobromid Hydrobromid Hydrobromi e 40 MG e 40 MG de 40 MG Calcium Calcium No Calcium Jardiance Jardiance No 1{table QD Jardiance 25 MG 25 MG t} 25 MG Vitamin D3 Vitamin D3 No Vitamin D3 Donepezil Donepezil No Donepezil HCl 10 MG HCl 10 MG HCl 10 MG Lisinopril Lisinopril No 1{table QD Lisinopril 40 MG 40 MG t} 40 MG Levemir Levemir No QD Levemir FlexTouch FlexTouch FlexTouch 100 UNIT/ML 100 UNIT/ML 100 UNIT/ML busPIRone busPIRone No 1{table busPIRone HCl 5 MG HCl 5 MG t} HCl 5 MG Levothyroxi Levothyroxi No QD Levothyrox ne Sodium ne Sodium ine Sodium 88 MCG 88 MCG 88 MCG Atorvastati Atorvastati No QD Atorvastat n Calcium n Calcium in Calcium 40 MG 40 MG 40 MG Vitamin D3 Vitamin D3 No Vitamin D3 Metoprolol Metoprolol No 1{table QD Metoprolol Succinate Succinate t} Succinate ER 50 MG ER 50 MG ER 50 MG Zofran 4 MG Zofran 4 MG No 1{table Zofran 4 t} MG Vitamin C Vitamin C No Vitamin C Insulin Insulin No Insulin Regular Regular Regular Human Human Human (Conc) 500 (Conc) 500 (Conc) 500 UNIT/ML UNIT/ML UNIT/ML Insulin NPH Insulin NPH No Insulin (Human) (Human) NPH (Isophane) (Isophane) (Human) 100 UNIT/ML 100 UNIT/ML (Isophane) 100 UNIT/ML Insulin Insulin No Insulin Syringe 31G Syringe 31G Syringe X 5/16" 1 X 16" 1 31G X ML ML /16" 1 ML Jardiance Jardiance No 1{table QD Jardiance 25 MG 25 MG t} 25 MG Furosemide Furosemide No 1{table QD Furosemide 20 MG 20 MG t} 20 MG Bydureon 2 Bydureon 2 No Bydureon 2 MG MG MG Calcium Calcium No Calcium Levothyroxi Levothyroxi No Levothyrox ne Sodium ne Sodium ine Sodium 88 MCG 88 MCG 88 MCG Donepezil Donepezil No Donepezil HCl 10 MG HCl 10 MG HCl 10 MG traZODone traZODone No QD traZODone HCl 100 mg HCl 100 mg HCl 100 mg Citalopram Citalopram No 1{table QD Citalopram Hydrobromid Hydrobromid t} Hydrobromi e 40 MG e 40 MG de 40 MG NovoLIN N NovoLIN N No QD NovoLIN N 100 UNIT/ML 100 UNIT/ML 100 UNIT/ML Novolin R Novolin R No QD Novolin R 100 UNIT/ML 100 UNIT/ML 100 UNIT/ML Methocarbam Methocarbam No Methocarba ol 750 MG ol 750 MG mol 750 MG Liothyronin Liothyronin No 1{table QD Liothyroni e Sodium 25 e Sodium 25 t_on_an ne Sodium MCG MCG _empty_ 25 MCG stomach } Lisinopril Lisinopril No 1{table QD Lisinopril 40 MG 40 MG t} 40 MG Levemir Levemir No QD Levemir FlexTouch FlexTouch FlexTouch 100 UNIT/ML 100 UNIT/ML 100 UNIT/ML busPIRone busPIRone No 1{table busPIRone HCl 5 MG HCl 5 MG t} HCl 5 MG Levothyroxi Levothyroxi No QD Levothyrox ne Sodium ne Sodium ine Sodium 88 MCG 88 MCG 88 MCG Atorvastati Atorvastati No QD Atorvastat n Calcium n Calcium in Calcium 40 MG 40 MG 40 MG Vitamin D3 Vitamin D3 No Vitamin D3 Metoprolol Metoprolol No 1{table QD Metoprolol Succinate Succinate t} Succinate ER 50 MG ER 50 MG ER 50 MG Zofran 4 MG Zofran 4 MG No 1{table Zofran 4 t} MG Vitamin C Vitamin C No Vitamin C Insulin Insulin No Insulin Regular Regular Regular Human Human Human (Conc) 500 (Conc) 500 (Conc) 500 UNIT/ML UNIT/ML UNIT/ML Insulin NPH Insulin NPH No Insulin (Human) (Human) NPH (Isophane) (Isophane) (Human) 100 UNIT/ML 100 UNIT/ML (Isophane) 100 UNIT/ML Insulin Insulin No Insulin Syringe 31G Syringe 31G Syringe X 5/16" 1 X 5/16" 1 31G X ML ML 5/16" 1 ML Jardiance Jardiance No 1{table QD Jardiance 25 MG 25 MG t} 25 MG Furosemide Furosemide No 1{table QD Furosemide 20 MG 20 MG t} 20 MG Bydureon 2 Bydureon 2 No Bydureon 2 MG MG MG Calcium Calcium No Calcium Levothyroxi Levothyroxi No Levothyrox ne Sodium ne Sodium ine Sodium 88 MCG 88 MCG 88 MCG Donepezil Donepezil No Donepezil HCl 10 MG HCl 10 MG HCl 10 MG traZODone traZODone No QD traZODone HCl 100 mg HCl 100 mg HCl 100 mg Citalopram Citalopram No 1{table QD Citalopram Hydrobromid Hydrobromid t} Hydrobromi e 40 MG e 40 MG de 40 MG NovoLIN N NovoLIN N No QD NovoLIN N 100 UNIT/ML 100 UNIT/ML 100 UNIT/ML Novolin R Novolin R No QD Novolin R 100 UNIT/ML 100 UNIT/ML 100 UNIT/ML Methocarbam Methocarbam No Methocarba ol 750 MG ol 750 MG mol 750 MG Liothyronin Liothyronin No 1{table QD Liothyroni e Sodium 25 e Sodium 25 t_on_an ne Sodium MCG MCG _empty_ 25 MCG stomach } Lisinopril Lisinopril No 1{table QD 40 MG 40 MG t} busPIRone busPIRone No 1{table BID HCl 5 MG HCl 5 MG t} Citalopram Citalopram No QD Hydrobromid Hydrobromid e 40 MG e 40 MG Liothyronin Liothyronin No 1{table QD e Sodium 25 e Sodium 25 t_on_an MCG MCG _empty_ stomach } NovoLIN N NovoLIN N No 100 UNIT/ML 100 UNIT/ML Calcium Calcium No Metoprolol Metoprolol No 1{table QD Succinate Succinate t} ER 50 MG ER 50 MG Insulin Insulin No Syringe 31G Syringe 31G X 01/04" 1 X 01/04" 1 ML ML Levothyroxi Levothyroxi No QD ne Sodium ne Sodium 88 MCG 88 MCG Atorvastati Atorvastati No QD n Calcium n Calcium 40 MG 40 MG Vitamin D3 Vitamin D3 No Furosemide Furosemide No 1{table QD 20 MG 20 MG t} Jardiance Jardiance No 1{table QD 25 MG 25 MG t} traZODone traZODone No 1{table QD HCl 100 MG HCl 100 MG t_at_be dtime_a s_neede d} Donepezil Donepezil No HCl 10 MG HCl 10 MG Vitamin C Vitamin C No NovoLIN N NovoLIN N No QD 100 UNIT/ML 100 UNIT/ML Novolin R Novolin R No QD 100 UNIT/ML 100 UNIT/ML BD Veo BD Veo No Insulin Insulin Syringe U/F Syringe U/F 31G X 31G X " 1 ML " 1 ML Lisinopril Lisinopril No Lisinopril 40 MG 40 MG 40 MG Liothyronin Liothyronin No 1{table QD Liothyroni e Sodium 25 e Sodium 25 t_on_an ne Sodium MCG MCG _empty_ 25 MCG stomach } Gabapentin Gabapentin No 1{capsu Gabapentin 300 MG 300 MG le} 300 MG Calcium Calcium No Calcium Citalopram Citalopram No QD Citalopram Hydrobromid Hydrobromid Hydrobromi e 40 MG e 40 MG de 40 MG NovoLIN N NovoLIN N No QD NovoLIN N 100 UNIT/ML 100 UNIT/ML 100 UNIT/ML traZODone traZODone No 1{table QD traZODone HCl 100 MG HCl 100 MG t_at_be HCl 100 MG dtime_a s_neede d} Metoprolol Metoprolol No 1{table QD Metoprolol Succinate Succinate t} Succinate ER 50 MG ER 50 MG ER 50 MG Insulin Insulin No Insulin Syringe 31G Syringe 31G Syringe X 01/04" 1 X 01/04" 1 31G X ML ML 01/04" 1 ML Furosemide Furosemide No 1{table QD Furosemide 20 MG 20 MG t} 20 MG Jardiance Jardiance No 1{table QD Jardiance 25 MG 25 MG t} 25 MG BD Veo BD Veo No BD Veo Insulin Insulin Insulin Syringe U/F Syringe U/F Syringe 31G X 31G X U/F 31G X " 1 ML " 1 ML " 1 ML Vitamin D3 Vitamin D3 No Vitamin D3 Novolin R Novolin R No QD Novolin R 100 UNIT/ML 100 UNIT/ML 100 UNIT/ML Levothyroxi Levothyroxi No Levothyrox ne Sodium ne Sodium ine Sodium 88 MCG 88 MCG 88 MCG Atorvastati Atorvastati No QD Atorvastat n Calcium n Calcium in Calcium 40 MG 40 MG 40 MG NovoLIN N NovoLIN N No NovoLIN N 100 UNIT/ML 100 UNIT/ML 100 UNIT/ML busPIRone busPIRone No 1{table BID busPIRone HCl 5 MG HCl 5 MG t} HCl 5 MG Donepezil Donepezil No Donepezil HCl 10 MG HCl 10 MG HCl 10 MG Vitamin C Vitamin C No Vitamin C Lisinopril Lisinopril No Lisinopril 40 MG 40 MG 40 MG Liothyronin Liothyronin No 1{table QD Liothyroni e Sodium 25 e Sodium 25 t_on_an ne Sodium MCG MCG _empty_ 25 MCG stomach } Gabapentin Gabapentin No 1{capsu Gabapentin 300 MG 300 MG le} 300 MG Calcium Calcium No Calcium Citalopram Citalopram No QD Citalopram Hydrobromid Hydrobromid Hydrobromi e 40 MG e 40 MG de 40 MG NovoLIN N NovoLIN N No QD NovoLIN N 100 UNIT/ML 100 UNIT/ML 100 UNIT/ML traZODone traZODone No 1{table QD traZODone HCl 100 MG HCl 100 MG t_at_be HCl 100 MG dtime_a s_neede d} Metoprolol Metoprolol No 1{table QD Metoprolol Succinate Succinate t} Succinate ER 50 MG ER 50 MG ER 50 MG Insulin Insulin No Insulin Syringe 31G Syringe 31G Syringe X 01/04" 1 X 01/04" 1 31G X ML ML 01/04" 1 ML Furosemide Furosemide No 1{table QD Furosemide 20 MG 20 MG t} 20 MG Jardiance Jardiance No 1{table QD Jardiance 25 MG 25 MG t} 25 MG BD Veo BD Veo No BD Veo Insulin Insulin Insulin Syringe U/F Syringe U/F Syringe 31G X 31G X U/F 31G X " 1 ML " 1 ML " 1 ML Vitamin D3 Vitamin D3 No Vitamin D3 Novolin R Novolin R No QD Novolin R 100 UNIT/ML 100 UNIT/ML 100 UNIT/ML Levothyroxi Levothyroxi No Levothyrox ne Sodium ne Sodium ine Sodium 88 MCG 88 MCG 88 MCG Atorvastati Atorvastati No QD Atorvastat n Calcium n Calcium in Calcium 40 MG 40 MG 40 MG NovoLIN N NovoLIN N No NovoLIN N 100 UNIT/ML 100 UNIT/ML 100 UNIT/ML busPIRone busPIRone No 1{table BID busPIRone HCl 5 MG HCl 5 MG t} HCl 5 MG Donepezil Donepezil No Donepezil HCl 10 MG HCl 10 MG HCl 10 MG Vitamin C Vitamin C No Vitamin C Lisinopril Lisinopril No Lisinopril 40 MG 40 MG 40 MG Liothyronin Liothyronin No 1{table QD Liothyroni e Sodium 25 e Sodium 25 t_on_an ne Sodium MCG MCG _empty_ 25 MCG stomach } Gabapentin Gabapentin No 1{capsu Gabapentin 300 MG 300 MG le} 300 MG Calcium Calcium No Calcium Citalopram Citalopram No QD Citalopram Hydrobromid Hydrobromid Hydrobromi e 40 MG e 40 MG de 40 MG NovoLIN N NovoLIN N No QD NovoLIN N 100 UNIT/ML 100 UNIT/ML 100 UNIT/ML traZODone traZODone No 1{table QD traZODone HCl 100 MG HCl 100 MG t_at_be HCl 100 MG dtime_a s_neede d} Metoprolol Metoprolol No 1{table QD Metoprolol Succinate Succinate t} Succinate ER 50 MG ER 50 MG ER 50 MG Insulin Insulin No Insulin Syringe 31G Syringe 31G Syringe X 01/04" 1 X 01/04" 1 31G X ML ML 01/04" 1 ML Furosemide Furosemide No 1{table QD Furosemide 20 MG 20 MG t} 20 MG Jardiance Jardiance No 1{table QD Jardiance 25 MG 25 MG t} 25 MG BD Veo BD Veo No BD Veo Insulin Insulin Insulin Syringe U/F Syringe U/F Syringe 31G X 31G X U/F 31G X " 1 ML " 1 ML " 1 ML Vitamin D3 Vitamin D3 No Vitamin D3 Novolin R Novolin R No QD Novolin R 100 UNIT/ML 100 UNIT/ML 100 UNIT/ML Levothyroxi Levothyroxi No Levothyrox ne Sodium ne Sodium ine Sodium 88 MCG 88 MCG 88 MCG Atorvastati Atorvastati No QD Atorvastat n Calcium n Calcium in Calcium 40 MG 40 MG 40 MG NovoLIN N NovoLIN N No NovoLIN N 100 UNIT/ML 100 UNIT/ML 100 UNIT/ML busPIRone busPIRone No 1{table BID busPIRone HCl 5 MG HCl 5 MG t} HCl 5 MG Donepezil Donepezil No Donepezil HCl 10 MG HCl 10 MG HCl 10 MG Vitamin C Vitamin C No Vitamin C Citalopram Citalopram No QD Citalopram Hydrobromid Hydrobromid Hydrobromi e 40 MG e 40 MG de 40 MG Lisinopril Lisinopril No Lisinopril 40 MG 40 MG 40 MG traZODone traZODone No 1{table QD traZODone HCl 100 MG HCl 100 MG t_at_be HCl 100 MG dtime_a s_neede d} BD Veo BD Veo No BD Veo Insulin Insulin Insulin Syringe U/F Syringe U/F Syringe 31G X 31G X U/F 31G X " 1 ML " 1 ML " 1 ML Gabapentin Gabapentin No 1{capsu Gabapentin 300 MG 300 MG le} 300 MG Vitamin D3 Vitamin D3 No Vitamin D3 Metoprolol Metoprolol No Metoprolol Succinate Succinate Succinate ER 50 MG ER 50 MG ER 50 MG NovoLIN N NovoLIN N No QD NovoLIN N 100 UNIT/ML 100 UNIT/ML 100 UNIT/ML Furosemide Furosemide No Furosemide 20 MG 20 MG 20 MG Insulin Insulin No Insulin Syringe 31G Syringe 31G Syringe X 01/04" 1 X 01/04" 1 31G X ML ML 01/04" 1 ML NovoLIN N NovoLIN N No NovoLIN N 100 UNIT/ML 100 UNIT/ML 100 UNIT/ML Jardiance Jardiance No 1{table QD Jardiance 25 MG 25 MG t} 25 MG Vitamin C Vitamin C No Vitamin C Levothyroxi Levothyroxi No Levothyrox ne Sodium ne Sodium ine Sodium 88 MCG 88 MCG 88 MCG Calcium Calcium No Calcium Novolin R Novolin R No QD Novolin R 100 UNIT/ML 100 UNIT/ML 100 UNIT/ML busPIRone busPIRone No 1{table BID busPIRone HCl 5 MG HCl 5 MG t} HCl 5 MG Donepezil Donepezil No Donepezil HCl 10 MG HCl 10 MG HCl 10 MG Atorvastati Atorvastati No QD Atorvastat n Calcium n Calcium in Calcium 40 MG 40 MG 40 MG Liothyronin Liothyronin No 1{table QD Liothyroni e Sodium 25 e Sodium 25 t_on_an ne Sodium MCG MCG _empty_ 25 MCG stomach } BD Veo BD Veo No BD Veo Insulin Insulin Insulin Syringe U/F Syringe U/F Syringe 31G X 31G X U/F 31G X " 1 ML " 1 ML " 1 ML NovoLIN N NovoLIN N No NovoLIN N 100 UNIT/ML 100 UNIT/ML 100 UNIT/ML traZODone traZODone No 1{table QD traZODone HCl 100 MG HCl 100 MG t_at_be HCl 100 MG dtime_a s_neede d} Lisinopril Lisinopril No Lisinopril 40 MG 40 MG 40 MG NovoLIN N NovoLIN N No QD NovoLIN N 100 UNIT/ML 100 UNIT/ML 100 UNIT/ML Novolin R Novolin R No QD Novolin R 100 UNIT/ML 100 UNIT/ML 100 UNIT/ML Euthyrox 88 Euthyrox 88 No Euthyrox MCG MCG 88 MCG Insulin Insulin No Insulin Syringe 31G Syringe 31G Syringe X 01/04" 1 X 01/04" 1 31G X ML ML 01/04" 1 ML Citalopram Citalopram No QD Citalopram Hydrobromid Hydrobromid Hydrobromi e 40 MG e 40 MG de 40 MG Gabapentin Gabapentin No 1{capsu Gabapentin 300 MG 300 MG le} 300 MG BD Insulin BD Insulin No BD Insulin Syringe U/F Syringe U/F Syringe 31G X 01/04" 31G X 01/04" U/F 31G X 1 ML 1 ML 01/04" 1 ML busPIRone busPIRone No 1{table BID busPIRone HCl 5 MG HCl 5 MG t} HCl 5 MG Levothyroxi Levothyroxi No QD Levothyrox ne Sodium ne Sodium ine Sodium 88 MCG 88 MCG 88 MCG Calcium Calcium No Calcium Atorvastati Atorvastati No QD Atorvastat n Calcium n Calcium in Calcium 40 MG 40 MG 40 MG Levothyroxi Levothyroxi No Levothyrox ne Sodium ne Sodium ine Sodium 88 MCG 88 MCG 88 MCG Gabapentin Gabapentin No Gabapentin 300 MG 300 MG 300 MG Donepezil Donepezil No Donepezil HCl 10 MG HCl 10 MG HCl 10 MG Liothyronin Liothyronin No 1{table QD Liothyroni e Sodium 25 e Sodium 25 t_on_an ne Sodium MCG MCG _empty_ 25 MCG stomach } Liothyronin Liothyronin No Liothyroni e Sodium 25 e Sodium 25 ne Sodium MCG MCG 25 MCG Vitamin C Vitamin C No Vitamin C Jardiance Jardiance No 1{table QD Jardiance 25 MG 25 MG t} 25 MG Vitamin D3 Vitamin D3 No Vitamin D3 Furosemide Furosemide No Furosemide 20 MG 20 MG 20 MG Novolin R Novolin R No QD Novolin R 100 UNIT/ML 100 UNIT/ML 100 UNIT/ML Calcium Calcium No Calcium Donepezil Donepezil No Donepezil HCl 10 MG HCl 10 MG HCl 10 MG Liothyronin Liothyronin No 1{table QD Liothyroni e Sodium 25 e Sodium 25 t_on_an ne Sodium MCG MCG _empty_ 25 MCG stomach } Euthyrox 88 Euthyrox 88 No Euthyrox MCG MCG 88 MCG traZODone traZODone No 1{table QD traZODone HCl 100 MG HCl 100 MG t_at_be HCl 100 MG dtime_a s_neede d} Carvedilol Carvedilol No 1{table BID Carvedilol 12.5 MG 12.5 MG t_with_ 12.5 MG food} Gabapentin Gabapentin No 1{capsu Gabapentin 300 MG 300 MG le} 300 MG NovoLIN N NovoLIN N No QD NovoLIN N 100 UNIT/ML 100 UNIT/ML 100 UNIT/ML Atorvastati Atorvastati No QD Atorvastat n Calcium n Calcium in Calcium 40 MG 40 MG 40 MG BD Veo BD Veo No BD Veo Insulin Insulin Insulin Syringe U/F Syringe U/F Syringe 31G X 31G X U/F 31G X " 1 ML " 1 ML " 1 ML Lisinopril Lisinopril No Lisinopril 40 MG 40 MG 40 MG Insulin Insulin No Insulin Syringe 31G Syringe 31G Syringe X 01/04" 1 X 01/04" 1 31G X ML ML 01/04" 1 ML Citalopram Citalopram No QD Citalopram Hydrobromid Hydrobromid Hydrobromi e 40 MG e 40 MG de 40 MG Levothyroxi Levothyroxi No QD Levothyrox ne Sodium ne Sodium ine Sodium 88 MCG 88 MCG 88 MCG Furosemide Furosemide No Furosemide 20 MG 20 MG 20 MG BD Insulin BD Insulin No BD Insulin Syringe U/F Syringe U/F Syringe 31G X 01/04" 31G X 01/04" U/F 31G X 1 ML 1 ML 01/04" 1 ML Vitamin C Vitamin C No Vitamin C Jardiance Jardiance No 1{table QD Jardiance 25 MG 25 MG t} 25 MG Vitamin D3 Vitamin D3 No Vitamin D3 busPIRone busPIRone No 1{table BID busPIRone HCl 5 MG HCl 5 MG t} HCl 5 MG Euthyrox 88 Euthyrox 88 No Euthyrox MCG MCG 88 MCG Novolin R Novolin R No QD Novolin R 100 UNIT/ML 100 UNIT/ML 100 UNIT/ML Vitamin C Vitamin C No Vitamin C traZODone traZODone No 1{table QD traZODone HCl 100 MG HCl 100 MG t_at_be HCl 100 MG dtime_a s_neede d} NovoLIN N NovoLIN N No QD NovoLIN N 100 UNIT/ML 100 UNIT/ML 100 UNIT/ML Gabapentin Gabapentin No 1{capsu Gabapentin 300 MG 300 MG le} 300 MG Levothyroxi Levothyroxi No QD Levothyrox ne Sodium ne Sodium ine Sodium 88 MCG 88 MCG 88 MCG Atorvastati Atorvastati No QD Atorvastat n Calcium n Calcium in Calcium 40 MG 40 MG 40 MG BD Veo BD Veo No BD Veo Insulin Insulin Insulin Syringe U/F Syringe U/F Syringe 31G X 31G X U/F 31G X " 1 ML " 1 ML " 1 ML BD Insulin BD Insulin No BD Insulin Syringe U/F Syringe U/F Syringe 31G X 01/04" 31G X 01/04" U/F 31G X 1 ML 1 ML 01/04" 1 ML Lisinopril Lisinopril No Lisinopril 40 MG 40 MG 40 MG Insulin Insulin No Insulin Syringe 31G Syringe 31G Syringe X 01/04" 1 X 01/04" 1 31G X ML ML 01/04" 1 ML busPIRone busPIRone No 1{table BID busPIRone HCl 5 MG HCl 5 MG t} HCl 5 MG Liothyronin Liothyronin No 1{table QD Liothyroni e Sodium 25 e Sodium 25 t_on_an ne Sodium MCG MCG _empty_ 25 MCG stomach } Furosemide Furosemide No Furosemide 20 MG 20 MG 20 MG Citalopram Citalopram No QD Citalopram Hydrobromid Hydrobromid Hydrobromi e 40 MG e 40 MG de 40 MG Calcium Calcium No Calcium Jardiance Jardiance No 1{table QD Jardiance 25 MG 25 MG t} 25 MG Vitamin D3 Vitamin D3 No Vitamin D3 Donepezil Donepezil No Donepezil HCl 10 MG HCl 10 MG HCl 10 MG Novolin R Novolin R No QD Novolin R 100 UNIT/ML 100 UNIT/ML 100 UNIT/ML Calcium Calcium No Calcium Donepezil Donepezil No Donepezil HCl 10 MG HCl 10 MG HCl 10 MG Liothyronin Liothyronin No 1{table QD Liothyroni e Sodium 25 e Sodium 25 t_on_an ne Sodium MCG MCG _empty_ 25 MCG stomach } Euthyrox 88 Euthyrox 88 No Euthyrox MCG MCG 88 MCG traZODone traZODone No 1{table QD traZODone HCl 100 MG HCl 100 MG t_at_be HCl 100 MG dtime_a s_neede d} Carvedilol Carvedilol No 1{table BID Carvedilol 12.5 MG 12.5 MG t_with_ 12.5 MG food} Gabapentin Gabapentin No 1{capsu Gabapentin 300 MG 300 MG le} 300 MG NovoLIN N NovoLIN N No QD NovoLIN N 100 UNIT/ML 100 UNIT/ML 100 UNIT/ML Atorvastati Atorvastati No QD Atorvastat n Calcium n Calcium in Calcium 40 MG 40 MG 40 MG Immunizations Ordered Immunization Filled Immunization Date Status Commen ts Source Name Name FluAD FluAD 2021-06-01 Completed [facility] - 12:43:00 [facility] FluAD 2021-06-01 Completed [facility] 12:43:00 [facility] FluAD FluAD 2021-06-01 Completed [facility] - 12:43:00 [facility] FluAD FluAD 2021-06-01 Completed [facility] - 12[facility]43:00 [facility] FluAD FluAD 2021-06-01 Completed [facility] - 12:43:00 [facility] FluAD FluAD 2021-06-01 Completed [facility] - 12[facility]43:00 [facility] FluAD FluAD 2021-06-01 Completed [facility] - 12[facility]43:00 [facility] FluAD FluAD 2021-06-01 Completed [facility] 12:43:00 [facility] FluAD FluAD 2021-06-01 Completed [facility] - 12:43:00 [facility] FluAD FluAD 2021-06-01 Completed [facility] 12:43:00 [facility] FluAD FluAD 2021-06-01 Completed [facility] 12:43:00 [facility] FluAD FluAD 2021-06-01 Completed [facility] - 12:43:00 [facility] SARS-COV-2 COVID-19 2021-01-01 Completed [facility] SARS-COV-2 COVID-19 2021-01-01 Completed [facility]ZER VACCINE 00:00:00 [facility] SARS-COV-2 COVID-19 2021-01-01 Completed [facility] PFIZER VACCINE 00:00:00 [facility] SARS-COV-2 COVID-19 2021-01-01 Completed [facility] PFIZER VACCINE 00:00:00 [facility] SARS-COV-2 COVID-19 2021-01-01 Completed [facility] PFIZER VACCINE 00:00:00 [facility] SARS-COV-2 COVID-19 2021-01-01 Completed [facility] PFIZER VACCINE 00:00:00 [facility] SARS-COV-2 COVID-19 2021-01-01 Completed [facility] PFIZER VACCINE 00:00:00 [facility] SARS-COV-2 COVID-19 2021-01-01 Completed [facility] PFIZER VACCINE 00:00:00 [facility] SARS-COV-2 COVID-19 2021-01-01 Completed [facility] PFIZER VACCINE 00:00:00 [facility] SARS-COV-2 COVID-19 2021-01-01 Completed [facility] PFIZER VACCINE 00:00:00 [facility] SARS-COV-2 COVID-19 2021-01-01 Completed [facility] PFIZER VACCINE 00:00:00 [facility] SARS-COV-2 COVID-19 2021-01-01 Completed [facility] PFIZER VACCINE 00:00:00 [facility] SARS-COV-2 COVID-19 2021-01-01 Completed [facility] PFIZER VACCINE 00:00:00 [facility] SARS-COV-2 COVID-19 2021-01-01 Completed [facility] PFIZER VACCINE 00:00:00 [facility] SARS-COV-2 COVID-19 2021-01-01 Completed [facility] PFIZER VACCINE 00:00:00 [facility] SARS-COV-2 COVID-19 2020-12-11 Completed [facility] PFIZER VACCINE 00:00:00 [facility] SARS-COV-2 COVID-19 2020-12-11 Completed [facility] PFIZER VACCINE 00:00:00 [facility] SARS-COV-2 COVID-19 2020-12-11 Completed [facility] PFIZER VACCINE 00:00:00 [facility] SARS-COV-2 COVID-19 2020-12-11 Completed [facility] PFIZER VACCINE 00:00:00 [facility] SARS-COV-2 COVID-19 2020-12-11 Completed [facility] PFIZER VACCINE 00:00:00 [facility] SARS-COV-2 COVID-19 2020-12-11 Completed [facility] PFIZER VACCINE 00:00:00 [facility] SARS-COV-2 COVID-19 2020-12-11 Completed [facility] PFIZER VACCINE 00:00:00 [facility] SARS-COV-2 COVID-19 2020-12-11 Completed [facility] PFIZER VACCINE 00:00:00 [facility] SARS-COV-2 COVID-19 2020-12-11 Completed [facility] PFIZER VACCINE 00:00:00 [facility] SARS-COV-2 COVID-19 2020-12-11 Completed [facility] PFIZER VACCINE 00:00:00 [facility] SARS-COV-2 COVID-19 2020-12-11 Completed [facility] PFIZER VACCINE 00:00:00 [facility] SARS-COV-2 COVID-19 2020-12-11 Completed [facility] PFIZER VACCINE 00:00:00 [facility] SARS-COV-2 COVID-19 2020-12-11 Completed [facility] PFIZER VACCINE 00:00:00 [facility] SARS-COV-2 COVID-19 2020-12-11 Completed [facility] PFIZER VACCINE 00:00:00 [facility] SARS-COV-2 COVID-19 2020-12-11 Completed [facility] PFIZER VACCINE 00:00:00 [facility] SARS-COV-2 COVID-19 2020-12-11 Completed [facility] PFIZER VACCINE 00:00:00 [facility] SARS-COV-2 COVID-19 2020-12-11 Completed [facility] PFIZER VACCINE 00:00:00 [facility] SARS-COV-2 COVID-19 2020-12-11 Completed [facility] PFIZER VACCINE 00:00:00 [facility] SARS-COV-2 COVID-19 2020-12-11 Completed [facility] PFIZER VACCINE 00:00:00 [facility] SARS-COV-2 COVID-19 2020-12-11 Completed [facility] PFIZER VACCINE 00:00:00 [facility] SARS-COV-2 COVID-19 2020-12-11 Completed [facility] PFIZER VACCINE 00:00:00 [facility] SARS-COV-2 COVID-19 2020-12-11 Completed [facility] PFIZER VACCINE 00:00:00 [facility] Pneumovax (PPSV23) Pneumovax (PPSV23) 2020-07-21 Completed [facility] - 12:16:00 [facility] Pneumovax (PPSV23) Pneumovax (PPSV23) 2020-07-21 Completed [facility] - 12:16:00 [facility] Pneumovax (PPSV23) Pneumovax (PPSV23) 2020-07-21 Completed [facility] - 12:16:00 [facility] Pneumovax (PPSV23) Pneumovax (PPSV23) 2020-07-21 Completed [facility] - 12:16:00 [facility] Pneumovax (PPSV23) Pneumovax (PPSV23) 2020-07-21 Completed [facility] - 12:16:00 [facility] Pneumovax (PPSV23) Pneumovax (PPSV23) 2020-07-21 Completed [facility] - 12:16:00 [facility] Pneumovax (PPSV23) Pneumovax (PPSV23) 2020-07-21 Completed [facility] - 12:16:00 [facility] Pneumovax (PPSV23) Pneumovax (PPSV23) 2020-07-21 Completed [facility] - 12:16:00 [facility] Pneumovax (PPSV23) Pneumovax (PPSV23) 2020-07-21 Completed [facility] - 12:16:00 [facility] Pneumovax (PPSV23) Pneumovax (PPSV23) 2020-07-21 Completed [facility] 12:16:00 [facility] Pneumovax (PPSV23) Pneumovax (PPSV23) 2020-07-21 Completed [facility] - 12:16:00 [facility] Pneumovax (PPSV23) Pneumovax (PPSV23) 2020-07-21 Completed [facility] - 12:16:00 [facility] FLUZONE HIGH DOSE FLUZONE HIGH DOSE 2020-07-21 Completed [facility] - OVER 65 OVER 65 12:14:00 [facility] FLUZONE HIGH DOSE FLUZONE HIGH DOSE 2020-07-21 Completed [facility] - OVER 65 OVER 65 12:14:00 [facility] FLUZONE HIGH DOSE FLUZONE HIGH DOSE 2020-07-21 Completed [facility] - OVER 65 OVER 65 12:14:00 [facility] FLUZONE HIGH DOSE FLUZONE HIGH DOSE 2020-07-21 Completed [facility] - OVER 65 OVER 65 12:14:00 [facility] FLUZONE HIGH DOSE FLUZONE HIGH DOSE 2020-07-21 Completed [facility] - OVER 65 OVER 65 12:14:00 [facility] FLUZONE HIGH DOSE FLUZONE HIGH DOSE 2020-07-21 Completed [facility] - OVER 65 OVER 65 12:14:00 [facility] FLUZONE HIGH DOSE FLUZONE HIGH DOSE 2020-07-21 Completed [facility] - OVER 65 OVER 65 12:14:00 [facility] FLUZONE HIGH DOSE FLUZONE HIGH DOSE 2020-07-21 Completed [facility] - OVER 65 OVER 65 12:14:00 [facility] FLUZONE HIGH DOSE FLUZONE HIGH DOSE 2020-07-21 Completed [facility] - OVER 65 OVER 65 12:14:00 [facility] FLUZONE HIGH DOSE FLUZONE HIGH DOSE 2020-07-21 Completed [facility] - OVER 65 OVER 65 12:14:00 [facility] FLUZONE HIGH DOSE FLUZONE HIGH DOSE 2020-07-21 Completed [facility] - OVER 65 OVER 65 12:14:00 [facility] FLUZONE HIGH DOSE FLUZONE HIGH DOSE 2020-07-21 Completed [facility] - OVER 65 OVER 65 12:14:00 [facility] FLUZONE HIGH DOSE FLUZONE HIGH DOSE 2019-07-27 Completed [facility] - OVER 65 OVER 65 16:41:00 [facility] FLUZONE HIGH DOSE FLUZONE HIGH DOSE 2019-07-27 Completed [facility] - OVER 65 OVER 65 16:41:00 [facility] FLUZONE HIGH DOSE FLUZONE HIGH DOSE 2019-07-27 Completed [facility] - OVER 65 OVER 65 16:41:00 [facility] FLUZONE HIGH DOSE FLUZONE HIGH DOSE 2019-07-27 Completed [facility] - OVER 65 OVER 65 16:41:00 [facility] FLUZONE HIGH DOSE FLUZONE HIGH DOSE 2019-07-27 Completed [facility] - OVER 65 OVER 65 16:41:00 [facility] FLUZONE HIGH DOSE FLUZONE HIGH DOSE 2019-07-27 Completed [facility] - OVER 65 OVER 65 16:41:00 [facility] FLUZONE HIGH DOSE FLUZONE HIGH DOSE 2019-07-27 Completed [facility] - OVER 65 OVER 65 16:41:00 [facility] FLUZONE HIGH DOSE FLUZONE HIGH DOSE 2019-07-27 Completed [facility] - OVER 65 OVER 65 16:41:00 [facility] FLUZONE HIGH DOSE FLUZONE HIGH DOSE 2019-07-27 Completed [facility] - OVER 65 OVER 65 16:41:00 [facility] FLUZONE HIGH DOSE FLUZONE HIGH DOSE 2019-07-27 Completed [facility] - OVER 65 OVER 65 16:41:00 [facility] FLUZONE HIGH DOSE FLUZONE HIGH DOSE 2019-07-27 Completed [facility] - OVER 65 OVER 65 16:41:00 [facility] FLUZONE HIGH DOSE FLUZONE HIGH DOSE 2019-07-27 Completed [facility] - OVER 65 OVER 65 16:41:00 [facility] FLUZONE HIGH DOSE FLUZONE HIGH DOSE 2019-07-27 Completed [facility] - OVER 65 OVER 65 00:00:00 [facility] Influenza Vaccine, 2017-07-05 Completed [facility] Seasonal, Injectable 00:00:00 Herpes Zoster 2016-10-04 Completed [facility] Vacc[facility] 00:00:00 Tdap Tetanus, 2016-10-04 Completed [facility] diphtheria, 00:00:00 acellular pertussis Vaccine Influenza Vaccine 2016-07-29 Completed [facility] 00:00:00 Influenza Vaccine 2015-06-04 Completed [facility] 00:00:00 Influenza Vaccine 2014-06-17 Completed [facility] 00:00:00 Pneumoccoccal 2013-05-08 Completed [facility] 00:00:00 Influenza Vaccine 2012-06-01 Completed [facility] 00:00:00 Influenza Vaccine 2011-06-30 Completed [facility] 00:00:00 Influenza Vaccine 2010-06-16 Completed [facility] 00:00:00 Influenza A (H1N1) 2009-09-04 Completed [facility] Vac Injection 00:00:00 Influenza Vaccine 2009-06-17 Completed [facility] 00:00:00 Pneumoccoccal 2006-12-12 Completed [facility] 00:00:00 Influenza Vaccine 2006-07-27 Completed [facility] 00:00:00 TT Tetanus Toxoid 2005-08-22 Completed [facility] Vaccine 00:00:00 Vital Signs Vital Name Observation Time Observation Value Comments Source height 2022-05-10 14:00:00 62 [in_i] [facility] weight 2022-05-10 14:00:00 189.0 [lb_av] [facility] temperature 2022-05-10 14:00:00 97.5 [degF] [facility] bmi 2022-05-10 14:00:00 34.56 kg/m2 [facility] oximetry 2022-05-10 14:00:00 96 % [facility] respiratory rate 2022-05-10 14:00:00 18 /min Comm on [facility] blood pressure 2022-05-10 14:00:00 130 mm[Hg] Common [facility] - systolic [facility] blood pressure 2022-05-10 14:00:00 64 mm[Hg] [facility] - diastolic [facility] height 2022-04-06 09:00:00 62 [in_i] [facility] weight 2022-04-06 09:00:00 178.0 [lb_av] [facility] temperature 2022-04-06 09:00:00 97.6 [degF] Common [facility] bmi 2022-04-06 09:00:00 32.55 kg/m2 Common [facility] oximetry 2022-04-06 09:00:00 97 % Common [facility] respiratory rate 2022-04-06 09:00:00 18 /min Comm on [facility] blood pressure 2022-04-06 09:00:00 152 mm[Hg] Common [facility] - systolic [facility] blood pressure 2022-04-06 09:00:00 76 mm[Hg] Common [facility] - diastolic [facility] height 2021-11-26 11:00:00 62 [in_i] Common [facility] weight 2021-11-26 11:00:00 178 [lb_av] Common [facility] temperature 2021-11-26 11:00:00 97.9 [degF] [facility] bmi 2021-11-26 11:00:00 32.55 kg/m2 [facility] oximetry 2021-11-26 11:00:00 96 % Common [facility] respiratory rate 2021-11-26 11:00:00 18 /min Comm on [facility] blood pressure 2021-11-26 11:00:00 160 mm[Hg] Common [facility] - systolic [facility] blood pressure 2021-11-26 11:00:00 58 mm[Hg] [facility] - [facility] height 2021-11-26 11:20:00 62 [in_i] Common [facility] weight 2021-11-26 11:20:00 178 [lb_av] Common [facility] temperature 2021-11-26 11:20:00 97.9 [degF] Common [facility] bmi 2021-11-26 11:20:00 32.55 kg/m2 Common [facility] oximetry 2021-11-26 11:20:00 96 % Common [facility] respiratory rate 2021-11-26 11:20:00 18 /min Comm on [facility] blood pressure 2021-11-26 11:20:00 160 mm[Hg] Common [facility] - systolic [facility] blood pressure 2021-11-26 11:20:00 58 mm[Hg] Common [facility] - diastolic [facility] height 2021-08-28 09:40:00 62 [in_i] Common S [facility] weight 2021-08-28 09:40:00 178 [lb_av] [facility] temperature 2021-08-28 09:40:00 96.7 [degF] [facility] bmi 2021-08-28 09:40:00 32.55 kg/m2 [facility] oximetry 2021-08-28 09:40:00 98 % [facility] respiratory rate 2021-08-28 09:40:00 22 /min Comm on [facility] blood pressure 2021-08-28 09:40:00 130 mm[Hg] Common [facility] systolic [facility] blood pressure 2021-08-28 09:40:00 76 mm[Hg] Common [facility] diastolic [facility] height 2021-06-01 11:20:00 62 [in_i] Common [facility] weight 2021-06-01 11:20:00 183.6 [lb_av] Common [facility] temperature 2021-06-01 11:20:00 96.5 [degF] Common [facility] bmi 2021-06-01 11:20:00 33.58 kg/m2 [facility] oximetry 2021-06-01 11:20:00 98 % [facility] respiratory rate 2021-06-01 11:20:00 16 /min Comm on [facility] blood pressure 2021-06-01 11:20:00 120 mm[Hg] [facility] - systolic [facility] blood pressure 2021-06-01 11:20:00 64 mm[Hg] [facility] - diastolic [facility] Body temperature 2021-04-01 16:17:00 35.83 Karly [facility] Body weight 2021-04-01 16:17:00 93.441 kg [facility] BMI 2021-04-01 16:17:00 37.68 kg/m2 [facility] Body temperature 2020-12-24 16:11:00 35.94 Karly [facility] ersity [facility] Body height 2020-12-24 16:11:00 157.5 cm Universi [facility] Body weight 2020-12-24 16:11:00 93.441 kg [facility] BMI 2020-12-24 16:11:00 37.68 kg/m2 [facility] Body temperature 2020-10-22 16:14:00 35.89 Karly [facility] Body height 2020-10-22 16:14:00 157.5 cm Universi ty of [facility] Body weight 2020-10-22 16:14:00 93.441 kg Universi ty of [facility] BMI 2020-10-22 16:14:00 37.68 kg/m2 [facility] Body temperature 2020-08-27 19:05:00 35.94 Karly [facility] Body height 2020-08-27 19:05:00 157.5 cm Universi ty of [facility] Body weight 2020-08-27 19:05:00 93.441 kg Universi ty of [facility] BMI 2020-08-27 19:05:00 37.67 kg/m2 Universi ty of [facility] Body temperature 2020-08-27 19:05:00 35.94 Karly [facility] Body height 2020-08-27 19:05:00 157.5 cm Universi ty of [facility] Body weight 2020-08-27 19:05:00 93.441 kg Universi ty of [facility] BMI 2020-08-27 19:05:00 37.67 kg/m2 [facility] Body temperature 2020-07-30 19:10:00 35.94 Karly [facility] Body weight 2020-07-30 19:10:00 93.486 kg [facility] BMI 2020-07-30 19:10:00 37.70 kg/m2 [facility] Body temperature 2020-06-25 21:10:00 35.94 Karly [facility] Body weight 2020-06-25 21:10:00 93.486 kg [facility] BMI 2020-06-25 21:10:00 37.70 kg/m2 [facility] Body temperature 2020-06-11 15:58:00 35.61 Karly [facility] Body weight 2020-06-11 15:58:00 97.659 kg [facility] BMI 2020-06-11 15:58:00 39.38 kg/m2 [facility] Body temperature 2020-06-02 20:28:00 36.67 Karly [facility] Respiratory rate 2020-05-15 23:45:00 18 /min Univ [facility] Systolic blood 2020-05-15 23:15:00 174 mm[Hg] Univer sity of pressure [facility] Diastolic blood 2020-05-15 23:15:00 70 mm[Hg] [facility] Heart rate 2020-05-15 23:15:00 75 /min [facility]i [facility] Oxygen saturation in 2020-05-15 23:15:00 96 /min [facility] Arterial blood by [facility] Pulse oximetry Branch Body temperature 2020-05-15 22:39:00 35.61 Karly [facility] Body height 2020-05-15 14:38:00 157.5 cm Universi [facility] Body weight 2020-05-15 14:38:00 97.7 kg [facility] BMI 2020-05-15 14:38:00 39.40 kg/m2 [facility] Body temperature 2020-05-05 20:19:00 36.72 Karly [facility] Systolic blood 2020-04-30 19:52:00 125 mm[Hg] Rula richardy [facility] Diastolic blood 2020-04-30 19:52:00 74 mm[Hg] [facility] Heart rate 2020-04-30 19:52:00 74 /min [facility] Respiratory rate 2020-04-30 19:52:00 18 /min [facility] Body height 2020-04-30 19:52:00 157.5 cm [facility] Body weight 2020-04-30 19:52:00 108.863 kg [facility] BMI 2020-04-30 19:52:00 43.90 kg/m2 [facility] Procedures Procedure Date / Time Performing Clinician Source Performed HOME HEALTH - OTHER 2021-06-22 05:01:00 Doctor Almas [facility] Name [facility] [place] HOME HEALTH - OTHER 2021-06-01 05:01:00 Doctor Almas [facility] Name [facility] [place] HOME HEALTH 485 2021-04-29 05:01:00 Doctor Almas [facility] [place] XR WRIST 3+ VW LEFT 2020-12-24 16:18:40 Gasper Armenta [facility] CONSULT ADULT 2020-12-24 00:00:00 Dave Davies [facility] OCCUPATIONAL THERAPY [facility] XR WRIST 3+ VW LEFT 2020-10-22 16:19:54 Samuel Armendariz [facility] XR WRIST 3+ VW LEFT 2020-08-27 19:17:56 Martínez Henson [facility] XR WRIST 3+ VW LEFT 2020-07-30 19:21:41 Martínez Henson [facility] MEDICATION CORRESPONDENCE 2020-06-25 06:01:00 Doctor Coburn [facility] [place] POCT GLUCOSE (AUTOMATED) 2020-05-15 22:57:00 Gasper Armenta [facility] [place] TIME OR 2020-05-15 22:39:10 Gasper Armenta [facility] (NON-REPORTABLE) [facility] POCT GLUCOSE (AUTOMATED) 2020-05-15 15:11:00 Gasper Armenta [facility] CONSENT/REFUSAL FOR 2020-05-15 14:28:21 Doctor Unassigned, Unive [facility] DIAGNOSIS AND TREATMENT [facility] ASSIGNMENT OF BENEFITS 2020-05-15 14:27:53 Doctor [facility]ass[facility] NOTICE OF PRIVACY 2020-05-13 16:38:06 Doctor Unassjackie, [facility] PRACTICES [facility] XR WRIST 3+ VW LEFT 2020-05-05 20:08:00 Gasper Armenta [facility] XR WRIST <3 VW LEFT 2020-04-30 19:49:11 Marlene Mcdonald [facility] Plan of Care Planned Activity Planned Date Details Comments Source Future Scheduled Test 2019-02-09 Breast Cancer Scrn [facility] 00:00:00 (Yearly) [code = Breast Cancer Scrn (Yearly)] Future Scheduled Test 2019 Imm Pneumococcal 65+ (1 [facility] 00:00:00 - PCV) [code = Imm Pneumococcal 65+ (1 - PCV)] Future Scheduled Test 2018-09-26 CORONARY ARTERY DISEASE [facility] 00:00:00 AGE 18 AND UP [code = CORONARY ARTERY DISEASE AGE 18 AND UP] Future Scheduled Test 1954 COVID-19 Vaccine (#1) [facility] 00:00:00 [code = COVID-19 Vaccine (#1)] Future Scheduled Test 1954 Fluoride Varnish [code [facility] 00:00:00 = Fluoride Varnish] Encounters Start End Encounter Admission Attending Care Care Encounter Source Date/Time Date/Time Type Type Clinicians Facility Department ID 2022-05-06 Outpatient Dill[facility] [id number] Common 09:00:01 [facility] 2022-04-07 [facility] [id number] 2 Common 10:47:00 [facility] 2022-04-06 Outpatient Dill, [facility] [id number] 2 Common 09:00:01 [facility] 2022-04-02 Outpatient Dill, [facility] [id number] 2 Common 09:55:01 [facility] 2022-02-23 Outpatient Dill, Na STLMLC STL[facility] [id number] 2 Common 09:58:00 [facility] 2021-09-16 Outpatient Dill, Na STLMLC STLMLC [id number] 2 Common 14:32:18 [facility] 2021-09-16 Outpatient Dill, Na STLMLC STLMLC [id number] 2 Common 14:32:01 [facility] 2021-09-16 Outpatient Dill, Na STLMLC STLMLC [id number] 2 Common 14:31:05 [facility] 2021-09-16 Outpatient Dill, Na STLMLC STLMLC [id number] 2 Common 13:59:30 [id number] [facility] 2021-09-16 Outpatient Dill, Na STLMLC STLMLC [id number] 2 Common 13:58:26 [id number] [facility] 2021-09-16 Outpatient Dill, Na STLMLC STLMLC [id number] 2 Common 13:24:04 [id number] [facility] 2021-09-16 Outpatient Dill, Na STLMLC STLMLC [id number] 2 Common 13:23:43 [id number] [facility] 2021-09-16 Outpatient Dill, Na STLMLC STLMLC [id number] 2 Common 13:22:49 [id number] [facility] 2021-09-16 Outpatient Dill, Na STLMLC STLMLC [id number] 2 Common 13:14:41 [id number] [facility] 2021-09-16 Outpatient Dill, Na STLMLC STLMLC [id number] 2 Common 12:45:31 [id number] [facility] 2021-09-16 Outpatient Dill, Na STLMLC STLMLC [id number] 2 Common 12:44:52 [id number] [facility] 2021-09-16 Outpatient Dill, Na STLMLC STLMLC [id number] 2 Common 12:26:28 [id number] [facility] 2021-09-16 Outpatient Dill, Na STLMLC STLMLC [id number] 2 Common 12:25:14 [id number] [facility] 2021-09-16 Outpatient Aniyah, Na STLMLC STLMLC [id number] 2 Common 12:15:44 [id number] [facility] 2021-09-16 Outpatient STLMLC STLMLC [id number] Common 12:15:17 [id number] [facility] 2021-09-16 Outpatient Boris Mustafa STLMLC STLMLC [id number] Common 12:12:14 [id number] [facility] 2021-09-16 Outpatient Boris Mustafa STLMLC STLMLC [id number] Common 12:08:33 [id number] [facility] 2021-09-16 Outpatient Millender, STLMLC STLMLC [id number] Common 12:07:57 Roseanne [id number] [facility] 2021-09-16 Outpatient Millender, STLMLC STLMLC [id number] Common 11:54:11 Roseanne [id number] [facility] 2021-09-16 Outpatient Millender, STLMLC STLMLC [id number] Common 11:48:53 Roseanne 83097 [facility] 2021-09-16 Outpatient Millender, STLMLC STLMLC [id number] Common 11:25:37 Roseanne 93270 [facility] 2021-09-16 Outpatient Millender, STLMLC STLMLC [id number] Common 11:12:40 Roseanne 25957 [facility] 2021-06-19 Outpatient FAILLACE, [facility] [id number] Univers 17:40:46 GASPER keating [facility] 2022-05-10 2022-05-10 OFFICE STLMLC STLMLC [id number] Co mmon 00:00:00 00:00:00 VISIT EST Spir it PT LEVEL 3 [facility] 2022-05-05 2022-05-05 (TEL) STLMLC STLMLC [id number] Co mmon 00:00:00 00:00:00 Spirit - [facility] 2022-04-06 2022-04-06 OFFICE STLMLC STLMLC [id number] Co mmon 00:00:00 00:00:00 VISIT Spirit ESTAB PT - CHI LEVEL 4 [facility] 2022-01-14 2022-01-14 (TEL) STLMLC STLMLC [id number] Co mmon 00:00:00 00:00:00 [facility] - [facility] 2021-11-27 2021-11-27 (TEL) STLMLC STLMLC [id number] Co mmon 00:00:00 00:00:00 [facility] 2021-11-26 2021-11-26 SUB ANNUAL STLMLC STLMLC [id number] Common 00:00:00 00:00:00 MCR [facility] WELLNESS - CHI VISIT [facility] 2021-11-26 2021-11-26 OFFICE STLMLC STLMLC [id number] Co mmon 00:00:00 00:00:00 VISIT EST Spir it PT LEVEL 3 - [facility] 2021-08-28 2021-08-28 OFFICE STLMLC STLMLC [id number] Co mmon 00:00:00 00:00:00 VISIT Spirit ESTAB PT - CHI LEVEL 4 [facility] 2021-06-22 2021-06-22 Orders Doctor GASPER Johnston.[id number] Univers 00:00:00 00:00:00 Only Unassigned, RY [id number] ity of [facility] [id number] Tez as [phone] [place] [address] [facility] 2021-06-01 2021-06-01 OFFICE STLMLC STLMLC [id number] Co mmon 00:00:00 00:00:00 VISIT Spirit ESTAB PT - CHI LEVEL 4 [facility] 2021-06-01 2021-06-01 Orders Doctor GASPER Hazel2.840.114 [id number] Univers 00:00:00 00:00:00 Only Unassigned, RY [id number] [facility] [id number] Tez as [phone] [address] 2021-05-26 2021-05-26 (TEL) STLC STLC [id number] Co mmon 00:00:00 00:00:00 [facility] 2021-04-29 2021-04-29 Orders Doctor GASPER [id number] Univers 00:00:00 00:00:00 Only Unassigned, RY [id number] ity of Success [facility] [id number] Tez as [phone] [address] 2021-04-24 2021-04-24 Telephone [facility] 1.2.840.114 [id number] Univers 00:00:00 00:00:00 Gasper SPECIALTY [id number] it[id number] [phone] Pa dicverona OCONNOR [address] [place] [address] 2021-04-14 2021-04-14 Patient [facility] [id number] Univers 00:00:00 00:00:00 Outreach Cally SPECIALTY [id number] ity of CARE [id number] [facility] [phone] Pa zachery OCONNOR [address] [place] [address] 2021-04-01 2021-04-01 Office [facility] [id number] Univers 10:10:32 12:11:09 Visit Gasper SPECIALTY [id number] ity [id number] [phone] Pa zachery OCONNOR [address] [place] [address] 2021-04-01 2021-04-01 Outpatient R [facility] [id number] Univers 11:00:00 11:00:00 GASPER keating of [facility] 2021-03-13 2021-03-13 Outpatient STLMLC STLMLC [id number] Common 00:00:00 00:00:00 [facility] 2021-02-27 2021-02-27 Outpatient STLMLC STLC [id number] Common 00:00:00 00:00:00 [facility] 2021-01-13 2021-01-13 Outpatient Nathan GRAFF [facility] [id number] Univers 15:15:00 15:15:00 GABI [facility] 2021-01-01 2021-01-01 Ancillary Anand Hughes [facility] 1.2. 840.114 [id number] Univers 15:14:20 15:59:20 Visit Gabi Graff [id number] ity [facility] [id number] [facility] [phone] Pa ju[address] 2021-01-01 2021-01-01 Outpatient Nathan PALMER [facility] [id number] Univers 14:50:00 14:50:00 TERRY [facility] 2020-12-31 2020-12-31 Outpatient Nathan SINGLETON [facility] [id number] Univers 10:30:00 10:30:00 EDA [facility] 2020-12-24 2020-12-24 [facility] 1.2.840.114 [id number] Univers 11:14:00 23:59:00 Encounter Gasper GALLEGOS [id number] ity of CARE [id number] [facility] AT [phone] Pa zachery CARRION 809 [facility] 2020-12-24 2020-12-24 Ancillary Therapy-Rebecca DickinsonGow-Kb-Xrmrj [facility] 1.2.840.114 [id number] Univers 12:31:32 13:51:28 Visit Filemon Reyes [id number] ity of [place] [id number] [facility] [phone] ([facility] 2020-12-24 2020-12-24 Outpatient Nathan REYES [facility] [id number] Univers 13:15:00 13:15:00 FILEMON [facility] 2020-12-24 2020-12-24 Office [facility] [id number] Univers 11:07:42 12:05:44 Visit Gasper GALLEGOS [id number] ity of [facility] [id number] [phone] Pa dicverona VICTORY 198 [facility] 2020-12-24 2020-12-24 Outpatient Nathan ARMENTA, [facility] [id number] Univers 11:00:00 11:00:00 GASPER zuri [facility] 2020-12-23 2020-12-23 Ancillary Anand Hughes [facility] 1.2. 840.114 [id number] Univers 11:21:38 13:36:07 Visit Gabi Graff [id number] it[place] of [id number] [phone] Pa dical nal [address] [facility] 2020-12-23 2020-12-23 Outpatient R DAJUAN, [facility] [id number] Univers 11:45:00 11:45:00 GABI marionrona [facility] 2020-12-11 2020-12-11 Ancillary Anand Hughes [facility] 1.2. 840.114 [id number] Univers 11:25:45 12:10:45 Visit Gabi Graff [id number] ity of [id number] [phone] Pa dical nal 178 [facility] 2020-12-11 2020-12-11 Outpatient [facility] [id number] Univers 11:45:00 11:45:00 ity of [facility] 2020-12-11 2020-12-11 Outpatient R ARELI, [facility] [id number] Univers 11:20:00 11:20:00 EDA ity [facility] 2020-12-04 2020-12-04 Ancillary Anand Hughes [facility] 1.2. 840.114 [id number] Univers 10:57:34 11:55:34 Visit Gabi Graff [id number] it[place] of [id number] [phone] Pa dical nal [address] [place] [address] 2020-11-17 2020-11-17 Outpatient STLMLC STLMLC [id number] Common 00:00:00 00:00:00 [facility] 2020-11-13 2020-11-13 Ancillary Anand Hughes [facility] 1.2. 840.114 [id number] Univers 10:51:29 11:36:29 Visit Gabi Graff [id number] ity of [id number] [phone] Pa dical nal [address] [place] [address] 2020-11-13 2020-11-13 Outpatient R DAJUAN [facility] [id number] Univers 11:00:00 11:00:00 [facility] 2020-11-06 2020-11-06 Ancillary Anand Hughes [facility] 1.2. 840.114 [id number] Univers 10:51:06 12:01:50 Visit Gabi Graff [id number] ity of [id number] [phone] Pa dical nal [address] [place] [address] 2020-11-06 2020-11-06 Outpatient R DAJUAN [facility] [id number] Univers 11:00:00 11:00:00 [facility] 2020-10-31 2020-10-31 Outpatient STLMLC STLMLC [id number] Common 00:00:00 00:00:00 [facility] 2020-10-30 2020-10-30 Ancillary Anand Hughes [facility] 1.2. 840.114 [id number] Univers 11:13:01 13:12:15 Visit Gabi Graff [id number] it[place] of [id number] [phone] Pa dical nal [address] [place] [address] 2020-10-30 2020-10-30 Outpatient R DAJUAN [facility] [id number] Univers 11:15:00 11:15:00 [facility] 2020-10-27 2020-10-27 [facility] 1.2.840.114 [id number] Univers 00:00:00 00:00:00 Outreach Terry BURNS [id number] i ty of [place] [facility] [id number] [place]AV[place] [phone] Pa dicverona [address] [place] 2020-10-22 2020-10-22 [facility] 1.2.840.114 [id number] Univers 10:13:46 23:59:00 Encounter Gasper SPECIALTY [id number] it[id number] [phone] Pa dicverona CARRIONY 809 [facility] 2020-10-22 2020-10-22 [facility] [id number] Univers 13:30:00 13:30:00 AGSPER ity of [facility] 2020-10-22 2020-10-22 Office [facility] [id number] Univers 10:08:42 10:18:42 Visit Gasper SPECIALTY [id number] it[id number] [phone] Pa dicverona CARRIONY 198 [facility] 2020-10-22 2020-10-22 Abstract Kala [facility] 1.2.840.114 [id number] Univers 00:00:00 00:00:00 [facility] [id number] it [id number] [phone] [facility] [address] [place] 2020-10-21 2020-10-21 Ancillary Aannd Hughes [facility] 1.2. 840.114 [id number] Univers 09:50:21 10:54:10 Visit Gabi Graff [id number] it[place] of [id number] [phone] Pa dical nal 178 [facility] 2020-10-21 2020-10-21 Outpatient [facility] [id number] Univers 10:00:00 10:00:00 GABI [facility] [facility] 2020-10-08 2020-10-08 Outpatient R TERRILIZKENNY [facility] [id number] Univers 11:00:00 11:00:00 GASPER [facility] 2020-10-01 2020-10-01 Outpatient R KATHI [facility] [id number] Univers 14:00:00 14:00:00 GASPER [facility] 2020-10-01 2020-10-01 Outpatient Nathan DAVIS [facility] [id number] Univers 11:00:00 11:00:00 PILO [facility] 2020-09-25 2020-09-25 Outpatient R DAJUAN [facility] [id number] Univers 10:00:00 10:00:00 [facility] 2020-09-18 2020-09-18 [facility] 1.2.003.445 [id number] 10:09:55 11:20:34 Visit Anand Coates 350.1.13.10 [place] 4.2.7.2.686 Professio [phone] [address] 2020-09-18 2020-09-18 Ancillary Anand Hughes [facility] 1.2. 840.114 [id number] Univers 10:09:55 11:20:34 Visit Gabi Graff 350.1.13.10 [facility] [place] [phone] Pa dical [address] 2020-09-18 2020-09-18 Outpatient STLMLC STL[facility]C [id number] Common 00:00:00 00:00:00 [facility] 2020-09-17 2020-09-17 Outpatient Nathan DAVIS [facility] [id number] Univers 10:30:00 10:30:00 PILO [facility] 2020-09-10 2020-09-10 Outpatient [facility] [id number] Univers 13:00:00 13:00:00 PILO [facility] 2020-09-09 2020-09-09 Ancillary Saul [facility] [id number] 10:25:00 11:28:35 Visit Anandbaldo Coates 350.1.13.10 K [place] 4.2.7.2.686 Professio [phone] [address] 2020-09-09 2020-09-09 Ancillary Anand Hughes [facility] 1.2. 840.114 [id number] [facility] 10:25:00 11:28:35 Visit Gabi Graff 350.1.13.10 it[place] of [place] [phone] [address] 2020-09-04 2020-09-04 [facility] 1.2.788.094 [id number] 11:03:12 12:12:29 Visit Anandjerad Coates 350.1.13.10 [facility] 4.2.7.2.686 Professio [phone] [address] 2020-09-04 2020-09-04 Ancillary Lynsey Hugheser Jose Manuel [facility] 1.2. 840.114 [id number] [facility] 11:03:12 12:12:29 Visit Gabi Graff 350.1.13.10 [place] [phone] [address] 2020-09-04 2020-09-04 Outpatient R DAJUAN [facility] [id number] [facility] 11:15:00 11:15:00 GABI keating [facility] 2020-08-27 2020-08-27 [facility] 1.2.840.114 [id number] 13:07:15 23:59:00 Encounter Gasper SPECIALTY 350.1.13.10 CARE 4.2.7.2.686 CENTER AT [phone] ANASTASIA 809 [facility] 2020-08-27 2020-08-27 [facility] 1.2.840.114 [id number] Univers 13:07:15 23:59:00 Encounter Gasper SPECIALTY 350.1.13.10 it[place] [phone] Pa zachery OCONNOR 809 [facility] 2020-08-27 2020-08-27 Outpatient R WILMAN [facility] [id number] Univers 14:00:00 14:00:00 ABENA ity [facility] 2020-08-27 2020-08-27 Office [facility] 1.2.840.114 [id number] 12:42:33 13:42:16 Visit Abena SPECIALTY 350.1.13.10 CARE 4.2.7.2.686 CENTER AT [phone] ANASTASIA [address] [place] [address] 2020-08-27 2020-08-27 Office [facility] 1.2.840.114 [id number] Univers 12:42:33 13:42:16 Visit Abena SPECIALTY 350.1.13.10 it[place] C[place] [phone] Pa zachery OCONNOR 198 [facility] 2020-08-27 2020-08-27 Bia Henson [facility] 1.2.840.114 [id number] Univers 00:00:00 00:00:00 Martínez SPECIALTY 350.1.13.10 it[place] [phone] Pa zachery OCONNOR 198 [facility] 2020-08-26 2020-08-26 Ancillary Anand Hughes [facility] 1.2. 840.114 [id number] Univers 09:05:09 09:50:09 Visit Gasper Armenta 350.1.13.10 [place].2.[place] [phone] Pa dicverona walker [address] [facility] 2020-08-26 2020-08-26 Outpatient R KATHI [facility] [id number] Univers 09:30:00 09:30:00 GASPER rona [facility] 2020-08-12 2020-08-12 Outpatient R KATHI [facility] [id number] Univers 14:00:00 14:00:00 GASPER keating [facility] 2020-08-07 2020-08-07 Outpatient R [facility] [id number] Univers 11:30:00 11:30:00 [facility] 2020-08-04 2020-08-04 Outpatient STLMLC STLC [id number] Common 00:00:00 00:00:00 [facility] 2020-07-31 2020-07-31 Ancillary Anand Hughes [facility] 1.2. 840.114 [id number] Univers 10:09:51 10:54:51 Visit Gasper Armenta 350.1.13.10 [place].2.[place] [facility] [phone] Pa dical aaron 178 [facility] 2020-07-30 2020-07-30 [facility] 1.2.840.114 [id number] Univers 13:17:45 23:59:00 Encounter Gasper GALLEGOS 350.1.13.10 ity of C[place] 4.2.[place].2.[place] [phone] Pa zachery OCONNOR 809 [facility] 2020-07-30 2020-07-30 Outpatient [facility] [id number] Univers 14:00:00 14:00:00 [facility] 2020-07-30 2020-07-30 Office [facility] 1.2.106.256 [id number] Univers 13:09:16 13:19:16 Visit Gasper GALLEGOS 350.1.13.10 it[place] of C[place]2.[place] [phone] Pa dical ANASTASIA 198 [facility] 2020-07-29 2020-07-29 Abstract Natividad [facility] 1.2.840.114 [id number] Univers 00:00:00 00:00:00 Martínez SPECIALTY 350.1.13.10 it[place] of [place] 4[place]2.[place].2.[place] [phone] Pa dicverona OCONNOR 198 [facility] 2020-07-23 2020-07-23 Outpatient R [facility] [id number] Univers 14:30:00 14:30:00 PILO keating [facility] 2020-07-22 2020-07-22 Ancillary Anand Hughes [facility] 1.2. 840.114 [id number] Univers 10:41:38 11:26:38 Visit Gasper Armenta 350.1.13.10 [place] 4[place].2.[place] [phone] [address] 2020-07-22 2020-07-22 Outpatient R KATHI [facility] [id number] Univers 10:30:00 10:30:00 GASPER [facility] 2020-07-21 2020-07-21 Outpatient STLMLC STLMLC [id number] Common 00:00:00 00:00:00 [facility] 2020-07-16 2020-07-16 Outpatient R SUSAN [facility] [id number] Univers 14:30:00 14:30:00 [facility] 2020-07-09 2020-07-09 [facility] [id number] Univers 14:30:00 14:30:00 [facility] 2020-07-08 2020-07-08 Ancillary Anand Hughes [facility] 1.2. 840.114 [id number] Univers 13:05:45 13:50:45 Visit Filemon Reyes 350.1.13.10 [place] 4[place].2.[place] [phone] [address] 2020-07-02 2020-07-02 Ancillary Anand Hughes [facility] 1.2. 840.114 [id number] Univers 15:42:46 16:27:46 Visit Filemon Reyes 350.1.13.10 ity of [facility] 4.2.7.2.686 [place] [facility] [phone] [address] ([facility]) 2020-07-02 2020-07-02 Out[facility] [id number] Univers 14:30:00 14:30:00 PILO [facility] 2020-06-27 2020-06-27 Outpatient STLMLC STLMLC [id number] Common 00:00:00 00:00:00 [facility] 2020-06-25 2020-06-25 Ancillary Anand Hughes [facility] 1.2. 840.114 [id number] Univers 16:01:12 16:46:12 Visit Lamont Reyesian Celia Dahl 350.1.13.10 ity of [place] 4.2.7.2.686 [facility] [phone] [address] ([facility]) 2020-06-25 2020-06-25 Outpatient R KATHI [facility] [id number] Univers 15:00:00 15:00:00 GASPER keating [facility] 2020-06-25 2020-06-25 Office Kathi [facility] [id number] Univers 14:19:27 14:29:27 Visit Gasper GALLEGOS 350.1.13.10 ity of [facility] 4.2.7.2.686 [facility] AT [phone] Pa dic[address] 2020-06-25 2020-06-25 Orders Doctor GASPER 1.2.840.114 [id number] Univers 00:00:00 00:00:00 Only Unassigned, RY 350.1.13.10 ity of Success [facility] 4.2.7.2.686 [facility] [phone] [address] 2020-06-24 2020-06-24 Outpatient R ERIC [facility] [id number] Univers 09:00:00 09:00:00 FILEMON keating [facility] 2020-06-20 2020-06-20 Outpatient Nathan DAVIS [facility] [id number] Univers 08:00:00 08:00:00 PILO keating [facility] 2020-06-18 2020-06-18 Outpatient Nathan DAVIS [facility] [id number] Univers 14:00:00 14:00:00 PILO keating [facility] 2020-06-11 2020-06-11 Outpatient Nathan [facility] [id number] Univers 13:30:00 13:30:00 PILO rona [facility] 2020-06-11 2020-06-11 [facility] 1.2.614.727 [id number] Univers 10:50:34 11:00:34 Visit Gasper SPECIALTY 350.1.13.10 ity of CARE [place].7.2.686 [place] AT [phone] Pa zachery OCONNOR 198 [facility] 2020-06-11 2020-06-11 Ancillary Anand Hughes [facility] 1.2. 840.114 [id number] Univers 09:01:47 09:46:47 Visit Eric Filemon Celia [facility] 350.1.13.10 it[place] of [place].2.686 [place] [facility] [phone] [facility] [address] [facility] ([facility]) 2020-06-02 2020-06-03 Ancillary Lucy Ball Belén [facility] 1.2.84 0.114 [id number] Univers 16:26:37 16:09:33 Visit Filemon Reyes PRIMARY 350.1.13.10 ity of CARE [place].2.686 [place] [phone] [address] 2020-06-03 2020-06-03 SADI Bashir 1.2.840.114 [id number] Univers 00:00:00 00:00:00 [facility] 350.1.13.10 it[place] of [place].2.686 [place] [phone] [facility] [address] 2020-06-02 2020-06-02 Office Kathi [facility] 1.2.438.597 [id number] Univers 15:09:13 16:08:29 Visit Gasper PRIMARY 350.1.13.10 it y of C[place] 4[place]2.[place].2.686 [place] [id number] [address] 2020-06-02 2020-06-02 Outpatient R KATHI [facility] [id number] Univers 15:50:00 15:50:00 GASPER keating [facility] 2020-06-02 2020-06-02 Outpatient R ERIC [facility] [id number] Univers 08:15:00 08:15:00 FILEMON keating [facility] 2020-06-02 2020-06-02 Outpatient [facility] [id number] Common 00:00:00 00:00:00 [facility] 2020-05-15 2020-05-15 [facility] Brisa Armenta 1.2.840.114 [id number] Univers 09:27:00 18:45:00 Encounter Gasper Jasso 350.1.13.10 ity of [facility] 4.2.7.2.686 Tez as [phone] [facility] [address] 2020-05-13 2020-05-13 Laboratory Only, Adc Test [facility] 1.2.840. 114 [id number] Univers 11:37:23 11:55:23 Only Alessia Drew Coates 350.1.13.10 it[facility] of [facility] 4[facility]2.7.2.[address] [facility] [phone] [facility] [address] 2020-05-13 2020-05-13 Outpatient R [facility] [id number] Univers 11:30:00 11:30:00 ity of [facility] 2020-05-05 2020-05-05 [facility] 1.2.840.114 [id number] Univers 14:58:04 23:59:00 Encounter Gasper PRIMARY 350.1.13.10 it[place] of [place].2.[place] [phone] Pa dical [address] 2020-05-05 2020-05-05 Office [facility] 1.2.112.103 [id number] Univers 14:38:00 16:31:29 Visit Gasper PRIMARY 350.1.13.10 it y of [place]2.[place].2.[place] [phone] Pa dical [address] 2020-05-05 2020-05-05 Outpatient R [facility] [id number] Univers 14:30:00 14:30:00 GASPER keating [facility] 2020-05-05 2020-05-05 Outpatient [facility] [id number] Univers 10:00:00 10:00:00 NEO keating [facility] 2020-04-30 2020-04-30 [facility] 1.2.840.114 [id number] Univers 14:49:11 23:59:00 Encounter [facility] 350.1.13.10 ity of Surgical 4.2.7.2.686 [place] Specialti [phone] Me dical es 809 [facility] 2020-04-30 2020-04-30 Outpatient R HARRY [facility] [id number] Univers 15:00:00 15:00:00 MARLENE [facility] 2020-04-30 2020-04-30 Office Harry [facility] 1.2.840.114 [id number] Univers 14:43:50 14:58:50 Visit Marlene [facility] 350.1.13.10 it y of Surgical 4.2.7.2.686 [place] Specialti [phone] Me dical es 198 [facility] 2020-04-22 2020-04-22 Out[facility] [id number] Common 16:07:00 16:07:00 t [employer] [address] [facility] 2020-03-10 2020-03-10 Outpatient [facility] [id number] Common 14:12:00 14:12:[address] [facility] 2020-02-18 2020-02-18 Out[facility] [id number] Common 16:18:00 16:18:[address] [facility] 2020-02-06 2020-02-06 Out[facility] [id number] Common 13:37:00 13:37:[address] [facility] 2020-02-04 2020-02-04 Outpatient [facility] [id number] Common 01:42:00 01:42:[address] [facility] 2020-01-31 2020-01-31 Out[facility] [id number] Common 14:20:00 14:20:[address] [facility] 2020-01-30 2020-01-30 Out[facility] [id number] Common 14:10:00 14:10:[address] [facility] 2019-12-03 2019-12-03 Out[facility] [id number] Common 16:36:00 16:36:[address] [facility] 2019-11-18 2019-11-18 Out[facility] [id number] Common 13:03:00 13:03:[address] [facility] 2019-11-12 2019-11-12 Out[facility] [id number] Common 13:39:00 13:39:[address] [facility] 2019-10-31 2019-10-31 Out[facility] [id number] Common 13:30:00 13:30:[address] [facility] 2019-09-03 2019-09-03 Out[facility] [id number] Common 16:31:00 16:31:[address] [facility] 2019-07-31 2019-07-31 Out[facility] [id number] Common 16:41:00 16:41:[address] [facility] 2019-07-28 2019-07-28 Out[facility] [id number] Common 02:30:00 02:30:[address] [facility] 2019-07-27 2019-07-27 Out[facility] [id number] Common 16:20:00 16:20:[address] [facility] 2019-07-04 2019-07-04 Outpatient [facility] [id number] Common 08:55:00 08:55:[address] [facility] 2019-06-11 2019-06-11 Outpatient [facility] [id number] Common 09:00:00 09:00:[address] [facility] 2019-06-07 2019-06-07 Out[facility] [id number] Common 11:00:00 11:00:[address] [facility] 2019-06-05 2019-06-05 Out[facility] [id number] Common 08:30:00 08:30:[address] [facility] 2019-05-10 2019-05-10 Out[facility] [id number] Common 08:30:00 08:30:[address] [facility] 2019-05-02 2019-05-02 Out[facility] [id number] Common 11:27:00 11:27:[address] [facility] 2019-04-17 2019-04-17 Out[facility] [id number] Common 16:14:00 16:14:[address] [facility] 2019-03-26 2019-03-26 Out[facility] [id number] Common 09:22:00 09:22:[address] [facility] 2019-03-09 2019-03-09 Out[facility] [id number] Common 09:45:00 09:45:[address] [facility] 2019-03-01 2019-03-01 Outpatient [facility] [id number] Common 12:06:00 12:06:[address] [facility] 2019-02-20 2019-02-20 Outpatient [facility] [id number] Common 14:01:00 14:01:[address] [facility] 2019-02-08 2019-02-08 Out[facility] [id number] Common 13:15:00 13:15:[address] [facility] 2019-02-06 2019-02-06 Out[facility] [id number] Common 13:59:00 13:59:00 [facility] 2018-12-27 2018-12-27 Outpatient Davi [facility] [id number] Common 13:30:00 13:30:00 [facility] 2018-04-26 2018-04-26 Outpatient [facility] [id number] [place] 00:00:00 00:00:00 [facility] 2018-03-31 2018-03-31 Outpatient [facility] [id number] [place] 00:00:00 00:00:00 [facility] 2018-03-08 2018-03-08 Outpatient [facility] [id number] [place] 00:00:00 00:00:00 [facility] 2018-02-24 2018-02-24 Outpatient [facility] [id number] [place] 00:00:00 00:00:00 [facility] 2018-02-24 2018-02-24 Outpatient [facility] [id number] [place] 00:00:00 00:00:00 [facility] 2018-02-09 2018-02-09 Outpatient [facility] [id number] [place] 13:36:45 13:36:45 [facility] 2018-02-09 2018-02-09 Outpatient [facility] [id number] [place] 10:28:28 10:28:28 [facility] 2018-01-19 2018-01-19 Outpatient [facility] [id number] [place] 00:00:00 00:00:00 [facility] 2018-01-19 2018-01-19 Outpatient [facility] [id number] [place] 00:00:00 00:00:00 [facility] 2018-01-09 2018-01-09 Outpatient [facility] [id number] [place] 13:25:35 13:25:35 [facility] 2017-12-27 2017-12-27 Outpatient [facility] [id number] [place] 00:00:00 00:00:00 [facility] 2017-12-20 2017-12-20 Outpatient [facility] [id number] [place] 00:00:00 00:00:00 [facility] 2017-12-15 2017-12-15 Outpatient [facility] [id number] [place] 00:00:00 00:00:00 [facility] 2017-12-06 2017-12-06 Outpatient [facility] [id number] [place] 08:10:51 08:10:51 Health 2017-12-05 2017-12-05 Outpatient [facility] [id number] [place] 05:30:00 05:30:00 [facility] 2017-12-05 2017-12-05 Outpatient [facility] [id number] [place] 00:00:00 00:00:00 [facility] 2017-12-01 2017-12-01 Outpatient [facility] [id number] [place] 08:19:47 08:19:47 [facility] 2017-12-01 2017-12-01 Outpatient [facility] [id number] [place] 00:00:00 00:00:00 [facility] 2017-12-01 2017-12-01 Outpatient [facility] [id number] [place] 00:00:00 00:00:00 [facility] 2017-11-29 2017-11-29 Outpatient [facility] [id number] [place] 00:00:00 00:00:00 [facility] 2017-11-23 2017-11-23 Outpatient [facility] [id number] [place] 09:49:20 09:49:20 [facility] 2017-11-23 2017-11-23 Outpatient [facility] [id number] [place] 00:00:00 00:00:00 [facility] 2017-11-18 2017-11-18 Outpatient [facility] [id number] [place] 10:51:59 10:51:59 [facility] 2017-11-14 2017-11-14 Outpatient [facility] [id number] [place] 10:23:03 10:23:03 [facility] 2017-10-20 2017-10-20 Outpatient [facility] [id number] [place] 00:00:00 00:00:00 [facility] 2017-09-26 2017-09-26 Outpatient [facility] [id number] [place] 13:09:30 13:09:30 [facility] 2017-09-26 2017-09-26 Outpatient [facility] [id number] [place] 09:55:34 09:55:34 [facility] 2017-09-23 2017-09-23 Outpatient [facility] [id number] [place] 08:54:23 08:54:23 [facility] 2017-08-09 2017-08-09 Outpatient [facility] [id number] [place] 08:08:19 08:08:19 [facility] 2017-08-03 2017-08-03 Outpatient [facility] [id number] [place] 15:21:14 15:21:14 [facility] 2017-07-05 2017-07-05 Outpatient [facility] [id number] [place] 13:54:48 13:54:48 [facility] 2017-06-27 2017-06-27 Outpatient [facility] [id number] [place] 00:00:00 00:00:00 [facility] 2017-06-09 2017-06-09 Outpatient [facility] [id number] [place] 00:00:00 00:00:00 Health 2017-04-27 2017-04-27 Outpatient [facility] [id number] [place] 00:00:00 00:00:00 Health 2017-04-11 2017-04-11 Outpatient [facility] [id number] [place] 00:00:00 00:00:00 Health 2017-01-06 2017-01-06 Outpatient [facility] [id number] [place] 13:59:34 13:59:34 Health 2017-01-06 2017-01-06 Outpatient [facility] [id number] [place] 12:59:46 12:59:46 Health 2016-11-12 2016-11-12 Outpatient [facility] [id number] [place] 12:46:26 12:46:26 Health Results Test Description Test Test Results Result Source Time Comments Comments XR WRIST 3+ VW 2020-12- Stable postop changes of University of LEFT 05 the distal left radius [facility] 21:54:35 and ulna. Chronic Branch appearingremodeling [...] - 12/24/2020 4:55 PM CDTPatient name: RACHEL NATION: 1955 65 years EXAMINATION: XR WRIST 3+ [...] U niversity of OCCUPATIONAL 05 Note:Consult received, [facility] [place] [facility] THERAPY 00:00:00 epic chart reviewed, and Branch OT evaluation completed. Please refer to evaluation details in progress note section. Pt educated on home program consisting of: orthotic training. ?Will continue to see pt for hand/digital ROM. XR WRIST 3+ VW 2020-10- Stable appearance of University of LEFT 03 distal radius and ulnar [facility] 21:00:56 fractures. Preliminary Br anch Report Dictated by Resident: Mary Armendariz MD., [...] 3+ VW 2020-08- Stable hardware fixation University of LEFT 06 of healing distal radial [facility] 19:31:56 and ulnar fractures. Bran ch EXAM: [...] Comme nts POCT GLU (test code = [id number]) 130 mg/dL 70-110 H Lab Interpretation (test code = 50990-7) [facility]2020-05-15 22:40:12 These images do not require a Radiology diagnostic report.[facility]2020-05-15 15:19:00 Test Item Value Reference Range Interpretation Comments POCT GLU (test code = 0393704271) 141 mg/dL 70-110 H Lab Interpretation (test code = Abnormal 66491-2) [facility]+ [facility] [id number] 21:55:27 Unchanged alignment of the distal radius fracture. Unchanged distal ulnar fracture. EXAM: XR WRIST 3+ VW LEFT HISTORY: L Wrist Fracture COMPARISON: 04/26/2020. FINDINGS: The splint has been removed. Alignment of the impacted intra-articulardistal radius fracture is grossly unchanged with dorsal angulati on of thedistal radial articular surface and splaying of the dominant fracturefragments. The ulnar styloid process fracture is similar in appearance.Soft tissue swelling persists. Osteopenia is noted. Vascular calcificationsare seen. Mild widening of the scapholunate interval is seen. [facility], Radiant Results Inft User - 05/05/2020 4:56 PM CDTEXAM:XR WRIST 3+ VW LEFTHISTORY:L Wrist Fracture COMPARISON:04/26/2020.FINDINGS: The splint has been removed. Alignment of the impacted intra-articulardistal radiusfracture is grossly unchanged with dorsal angulation of thedistal radial articular surface and splaying of the dominant fracturefragments. The ulnar styloid process fracture is similar in appearance.Soft tissue swelling persists. Osteopenia is noted. Vascular calcificationsare seen. Mild widening of the scapholunate interval is seen.IMPRESSIONUnchanged alignment of the distal radius fracture.Unchanged distal ulnar fracture.[facility]
[2022-06-05 21:55] LABS: Absolute Lymphocytes (CBC) 1.1 K/uL (0.7-4.9); Hematocrit 38.5 % (36.0-45.0); Lymphocytes % 3.5 % (15.3-44.8); MCV 93.5 fL (80-100); MPV 9.2 fL (7.6-11.3); RBC Red Blood Cell Count 4.12 M/uL (3.86-4.86)
[2022-06-05 22:08] LABS: Albumin 3.4 g/dL (3.4-5.0); Bilirubin Total 0.7 mg/dL (0.2-1.0); Potassium 5.1 mmol/L (3.5-5.1); Protein, Total 7.5 g/dL (6.4-8.2)
--- NOTE | 2022-06-05 22:09 | RAD REPORT ---
EXAM DESCRIPTION: Kylah Single View06/05/2022 9:59 pm CLINICAL HISTORY: Weakness COMPARISON: 2020 FINDINGS: Left upper lobe is hazy. The remainder of the lungs appear clear of acute infiltrate. The heart is normal size Postsurgical changes involve chest IMPRESSION: Left upper lobe is mildly hazy suspicious for pneumonia
[2022-06-05 22:13] LABS: Troponin High Sensitivity 160.3 pg/mL (<58.9)
--- NOTE | 2022-06-05 22:25 | ER ---
Nurse's Notes [facility] Name: Indira Chavis Age: 67 yrs Sex: Female : 1955 Arrival Date: 06/05/2022 Time: 20:36 Bed 5 Private MD: Diagnosis: Pneumonia, unspecified organism;Leukocytosis;Diarrhea, unspecified;Muscle weakness (generalized) Presentation: 06/05 20:39 Chief complaint: EMS states: Feeling sick since yesterday with diarrhea. Coronavirus ke1 screen: Vaccine status: Patient reports receiving the 2nd dose of the covid vaccine. Ebola Screen: No symptoms or risks identified at this time. Initial Sepsis Screen: Does the patient meet any 2 criteria? No. Patient's initial sepsis screen is negative. Does the patient have a suspected source of infection? No. Patient's initial sepsis screen is negative. Risk Assessment: Do you want to hurt yourself or someone else? Patient reports no desire to harm self or others. Onset of symptoms was June 04, 2022 at 05:00. 20:39 Method Of Arrival: EMS: [facility] ke1 20:39 Acuity: KERMIT 3 ke1 Triage Assessment: 23:43 General: Appears in no apparent distress. Behavior is appropriate for age. ke1 06/06 00:00 Pain: Denies pain. ke1 Historical: - Allergies: 06/05 20:44 No Known Allergies; ke1 - PMHx: 20:44 Diabetes mellitus; Hypertensive disorder; Hypercholesterolemia; Chronic systolic heart ke1 failure; - Social history:: Smoking status: Patient denies any tobacco usage or history of. Screenin:42 Abuse screen: Denies threats or abuse. Nutritional screening: No deficits noted. ke1 Tuberculosis screening: No symptoms or risk factors identified. Fall Risk None identified. Assessment: 22:23 Reassessment: Reassessment: No changes from previously documented assessment. Patient ke1 is alert, oriented x 3, equal unlabored respirations, skin warm/dry/pink. Patient denies pain at this time. 22:30 Reassessment: Patient is blind due to diabetes. ke1 06/06 00:06 Reassessment: No changes from previously documented assessment. Patient is alert, ke1 oriented x 3, equal unlabored respirations, skin warm/dry/pink. Patient denies pain at this time. 02:02 Reassessment: No changes from previously documented assessment. ke1 03:00 Reassessment: No changes from previously documented assessment. ke1 03:15 Reassessment: Brief changed. Assisted pt with cleaning. jb4 04:00 Reassessment: No changes from previously documented assessment. ke1 05:25 Reassessment: Resting quietly in bed, eyes closed. ke1 06:01 Reassessment: Pt is resting in bed with eyes closed, respirations are even and jb4 unlabored with no s/s of pain or distress noted. 07:09 Reassessment: JESSE [phone]. ke1 07:47 Reassessment: report given to admitting nurse KELY Tejada. mb9 Vital Signs: 06/05 20:39 BP 122 / 47; Pulse 84; Resp 17; Temp 100(O); Pulse Ox 93% on R/A; Weight 85.73 kg; ke1 Height 5 ft. 2 in. (157.48 cm); Pain 6/10; 22:14 BP 141 / 70; Pulse 87; Resp 16; Temp 98.8(O); Pulse Ox 92% ; ke1 06/06 00:06 BP 129 / 104; Pulse 92; Resp 19; Pulse Ox 94% on R/A; Pain 0/10; ke1 02:01 BP 159 / 45; Pulse 90; Resp 21; Temp 98.6(O); Pulse Ox 95% on R/A; Pain 0/10; ke1 05:24 BP 130 / 44; Pulse 65; Resp 17; Temp 98.7(O); Pulse Ox 97% ; ke1 06:01 BP 114 / 46; Pulse 97; Resp 22; Pulse Ox 96% on R/A; jb4 06/05 20:39 Body Mass Index 34.57 (85.73 kg, 157.48 cm) ke1 ED Course: 06/05 20:36 Patient arrived in ED. ke1 20:37 Marek Villarreal DO is Attending Physician. ms3 20:39 Luis Manuel Mcnamara RN is Primary Nurse. ke1 20:44 Triage completed. ke1 22:01 XRAY Chest (1 view) In Process Unspecified. EDMS 22:13 Luis Manuel Mcnamara RN is Primary Nurse. ke1 22:18 Inserted saline lock: 22 gauge in left forearm, using aseptic technique. ke1 22:23 Thanh Marlow MD is Hospitalizing Provider. ms3 22:35 Uriel Zepeda MD is Hospitalizing Provider. ms3 23:42 Inserted saline lock: 20 gauge in right antecubital area, using aseptic technique. ke1 ,using aseptic technique. by steve charge nurse. 06/06 02:02 Arm band placed on right wrist. ke1 02:02 Bed in low position. Call light in reach. Side rails up X 1. Side rails up X2. ke1 Administered Medications: 00:05 Drug: AZITHromycin 500 mg Route: IVPB; Infused Over: 1 hrs; Site: right antecubital; ke1 01:05 Follow up: Response: No adverse reaction ke1 01:05 Follow up: IV Status: Completed infusion ke1 00:06 Drug: Rocephin (cefTRIAXone) 1 grams Route: IV; Rate: calculated rate; Site: left ke1 forearm; 00:15 Follow up: Response: No adverse reaction; IV Status: Completed infusion ke1 01:59 Drug: Aspirin 325 mg Route: PO; ke1 05:03 Follow up: Response: No adverse reaction ke1 02:01 Drug: Lovenox (enoxaparin) 40 mg Route: Sub-Q; Site: right upper abdomen; ke1 05:03 Follow up: Response: No adverse reaction ke1 Outcome: 06/05 22:24 Decision to Hospitalize by Provider. ms3 06/06 08:29 Patient left the ED. mb9 Signatures: Dispatcher [employer] EDMS Jatin Salomon RN RN jb4 Marek Villarreal DO DO ms3 Luis Manuel Mcnamara RN KELY ke1 Juliette Adkins RN RN [email or web address] Corrections: (The following items were deleted from the chart) 06/05 22:24 22:22 Reassessment: daughter [phone], pls call daughter for patient d/c or jb4 admission jb4 22:58 22:23 Reassessment: jb4 ke1
--- NOTE | 2022-06-05 22:25 | EDPHYS ---
Physician Documentation [facility] Name: Indira Chavis Age: 67 yrs Sex: Female : 1955 Arrival Date: 06/05/2022 Time: 20:36 Bed 5 Private MD: ED Physician Marek Villarreal HPI: 06/06 01:09 This 67 yrs old Female presents to ER via EMS with complaints of "feeling sick" and ms3 diarrhea. 01:09 67-year-old female with past medical history of diabetes, hypertension, ms3 hypercholesterolemia, blindness presents for diarrhea that began at 5 PM. Patient states she began feeling sick yesterday and has had decreased p.o. intake. Patient states she is in a moderate generalized aches. Patient denies alleviating or inciting factors.. Historical: - Allergies: 06/05 20:44 No Known Allergies; ke1 - PMHx: 20:44 Diabetes mellitus; Hypertensive disorder; Hypercholesterolemia; Chronic systolic heart ke1 failure; - Social history:: Smoking status: Patient denies any tobacco usage or history of. ROS: 06/06 01:09 Constitutional: Negative for fever, and chills. Neck: Negative for injury, pain, and ms3 swelling, Cardiovascular: Negative for chest pain, and palpitations. Respiratory: Negative for shortness of breath, cough, wheezing, and pleuritic chest pain. Skin: Negative for injury, rash, and discoloration. Abdomen/GI: Positive for diarrhea. All other systems are negative. Exam: 06/05 22:37 ECG was reviewed by the Attending Physician. ms3 06/06 01:09 Constitutional: This is a well developed, well nourished patient who is awake, alert, ms3 and in no acute distress. Head/Face: Normocephalic, atraumatic. Neck: Trachea midline, no cervical lymphadenopathy. Supple, full range of motion without nuchal rigidity, or vertebral point tenderness. No Meningismus. Chest/axilla: Normal chest wall appearance and motion. Nontender with no deformity. Cardiovascular: Regular rate and rhythm with a normal S1 and S2. No gallops, murmurs, or rubs. Normal PMI, no JVD. No pulse deficits. Respiratory: Lungs have equal breath sounds bilaterally, clear to auscultation and percussion. No rales, rhonchi or wheezes noted. No increased work of breathing, no retractions or nasal flaring. Abdomen/GI: Soft, non-tender, with normal bowel sounds. No distension or tympany. No guarding or rebound. No evidence of tenderness throughout. Skin: Warm, dry with normal turgor. Normal color with no rashes, no lesions, and no evidence of cellulitis. MS/ Extremity: Pulses equal, no cyanosis. Neurovascular intact. Full, normal range of motion. Vital Signs: 06/05 20:39 BP 122 / 47; Pulse 84; Resp 17; Temp 100(O); Pulse Ox 93% on R/A; Weight 85.73 kg; ke1 Height 5 ft. 2 in. (157.48 cm); Pain 6/10; 22:14 BP 141 / 70; Pulse 87; Resp 16; Temp 98.8(O); Pulse Ox 92% ; ke1 06/06 00:06 BP 129 / 104; Pulse 92; Resp 19; Pulse Ox 94% on R/A; Pain 0/10; ke1 02:01 BP 159 / 45; Pulse 90; Resp 21; Temp 98.6(O); Pulse Ox 95% on R/A; Pain 0/10; ke1 05:24 BP 130 / 44; Pulse 65; Resp 17; Temp 98.7(O); Pulse Ox 97% ; ke1 06:01 BP 114 / 46; Pulse 97; Resp 22; Pulse Ox 96% on R/A; jb4 06/05 20:39 Body Mass Index 34.57 (85.73 kg, 157.48 cm) ke1 MDM: 06/05 20:37 Patient medically screened. ms3 23:02 ED course: Voicemail left for Dr Zepeda regarding admission. ms3 06/06 00:10 ED course: Attempted to call Dr Zepeda and phone goes to voicemail.. ms3 01:09 Data reviewed: vital signs, nurses notes, lab test result(s), radiologic studies, and ms3 as a result, I will admit patient. 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 Counseling: I had a detailed discussion with the patient and/or guardian regarding: the historical points, exam findings, and any diagnostic results supporting the discharge/admit diagnosis, lab results, radiology results, the need for further work-up and treatment in the hospital. ED course: Discussed case with Dr Cid and he states for patient to get DVT ppx Lovenox. Does not recommned Heparin ggt at this time.. 01:13 ED course: Dr Zepeda called for admission. Voicemail left.. ms3 02:06 ED course: Dr Zepeda called and voicemail left. 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 Will admit to hospitalist. . 03:19 ED course: Called Dr Zepeda for admission. Voicemail left.. ms3 04:07 ED course: Dr Zepeda called without answer.. ms3 04:07 ED course: Patient remains in stable condition at this time. Patient updated on status ms3 of admission.. 04:55 ED course: Attempted to call Dr Zepeda and received his voicemail. ms3 05:49 ED course: Discussed case with Dr Zepeda. He accepts patient.. ms3 06/05 20:38 Order name: CBC with Diff; Complete Time: 00:09 ms3 06/05 20:38 Order name: Troponin HS; Complete Time: 22:16 ms3 06/05 20:38 Order name: CMP; Complete Time: 22:16 ms3 06/05 22:05 Order name: Blood Culture Adult (2) ms3 06/05 22:05 Order name: Lactate; Complete Time: 00:09 ms3 06/05 22:05 Order name: Protime (+inr); Complete Time: 00:09 ms3 06/05 20:38 Order name: XRAY Chest (1 view); Complete Time: 22:16 ms3 06/05 22:05 Order name: Ptt, Activated; Complete Time: 00:09 ms3 06/05 22:07 Order name: Manual Differential; Complete Time: 00:09 EDMS 06/05 22:40 Order name: Glucose, Ancillary Testing; Complete Time: 22:41 EDMS 06/06 00:10 Order name: Troponin High Sensitivity; Complete Time: 02:05 ms3 06/06 03:30 Order name: SARS RAPID; Complete Time: 04:08 bb 06/06 07:51 Order name: Glucose, Ancillary Testing EDMS 06/05 20:38 Order name: EKG; Complete Time: 20:39 ms3 06/05 20:38 Order name: Cardiac monitoring; Complete Time: 22:52 ms3 06/05 20:38 Order name: EKG - Nurse/Tech; Complete Time: 22:52 ms3 06/05 20:38 Order name: IV Saline Lock; Complete Time: 22:52 ms3 06/05 20:38 Order name: Labs collected and sent; Complete Time: 22:52 ms3 06/05 20:38 Order name: O2 Per Protocol; Complete Time: 22:52 ms3 06/05 20:38 Order name: O2 Sat Monitoring; Complete Time: 22:52 ms3 06/05 22:05 Order name: Accucheck; Complete Time: 23:58 ms3 06/05 22:05 Order name: IV Saline Lock - Large Bore; Complete Time: 23:58 ms3 06/05 22:05 Order name: Vital Signs; Complete Time: 22:19 ms3 EC/15 22:37 Rate is 89 beats/min. Rhythm is regular. QRS [place] is Normal. SD interval is normal. QRS ms3 interval is normal. Clinical impression: NSR w/ Non-specific ST/T Changes. Interpreted by me. Reviewed by me. Administered Medications: 06/06 00:05 Drug: AZITHromycin 500 mg Route: IVPB; Infused Over: 1 hrs; Site: right antecubital; ke1 01:05 Follow up: Response: No adverse reaction ke1 01:05 Follow up: IV Status: Completed infusion ke1 00:06 Drug: Rocephin (cefTRIAXone) 1 grams Route: IV; Rate: calculated rate; Site: left ke1 forearm; 00:15 Follow up: Response: No adverse reaction; IV Status: Completed infusion ke1 01:59 Drug: Aspirin 325 mg Route: PO; ke1 05:03 Follow up: Response: No adverse reaction ke1 02:01 Drug: Lovenox (enoxaparin) 40 mg Route: Sub-Q; Site: right upper abdomen; ke1 05:03 Follow up: Response: No adverse reaction ke1 Disposition Summary: 06/05/22 22:24 Hospitalization Ordered Hospitalization Status: Inpatient Admission ms3 [facility] ms3 Condition: Stable ms3 Problem: new ms3 Symptoms: are unchanged ms3 Bed/Room Type: Standard ms3 Provider: Uriel Zepeda(06/05/22 22:35) ms3 Room Assignment: 407(06/06/22 06:54) eb1 Diagnosis - Pneumonia, unspecified organism ms3 - Leukocytosis ms3 - Diarrhea, unspecified ms3 - Muscle weakness (generalized) ms3 Forms: - Medication Reconciliation Form ms3 - SBAR form ms3 Signatures: Dispatcher [employer] Emily Bullock, RN RN eb1 Marek Villarreal DO DO ms3 Luis Manuel Mcnamara RN RN ke1 Corrections: (The following items were deleted from the chart) 06/05 22:35 22:24 Thanh Marlow ms3 ms3 06/06 06:54 06/05 22:24 ms3 eb1
[2022-06-05 23:06] LABS: Blood Morphology Comment NOT SEEN (NOT SEEN); Platelet Estimate ADEQ
[2022-06-05] MEDS ORDERED: NA CHLORIDE 0.9% 250 ML ONE (23:44)
[2022-06-05] MEDS ORDERED: AZITHROMYCIN 500 MG INJ IVPB ONE (23:44)
[2022-06-05] MEDS ORDERED: CEFTRIAXONE 1000 MG/VIAL ONE (23:44)
[2022-06-05] MEDS ORDERED: NA CHLORIDE 0.9% 50 ML IV ONE (23:49)
[2022-06-05 23:53] LABS: Protime INR 1.07
[2022-06-06 03:59] LABS: SARS-CoV-2 Antigen Rapid Res Negative (Negative)
[2022-06-06 06:35] VITALS: BMI 34.5
[2022-06-06] MEDS: INSULIN -REGULAR HUMAN 50 UNIT/0.5 ML ML SQ SCH ×4 (10:16→21:00)
[2022-06-06] MEDS ORDERED: GLUCAGON 1 MG/VIAL IM PRN (11:33)
[2022-06-06] MEDS ORDERED: D50W 25 GM/50 ML SYRINGE IV PRN (11:33)
[2022-06-06] MEDS ORDERED: ALBUTEROL 2.5 MG/3 ML NEB SOL NEB PRN (11:36)
[2022-06-06] MEDS ORDERED: IPRATROPIUM BROM 0.5MG/2.5ML NEB PRN (11:36)
[2022-06-06] MEDS ORDERED: NA CHLORIDE 0.9% 1,000 ML IV SCH (12:00)
[2022-06-06 12:09] LABS: Absolute Lymphocytes (CBC) 3.2 K/uL (0.7-4.9); Hematocrit 35.7 % (36.0-45.0); Lymphocytes % 11.9 % (15.3-44.8); MCV 93.7 fL (80-100); MPV 8.9 fL (7.6-11.3)
--- NOTE | 2022-06-06 12:11 | P.HP ---
Certification for Inpatient Patient admitted to: Inpatient With expected LOS: >2 Midnights Patient will require the following post-hospital care: None Practitioner: I am a practitioner with admitting privileges, knowledge of patient current condition, hospital course, and medical plan of care. Services: Services provided to patient in accordance with Admission requirements found in Title 42 Section 412.3 of the Code of Federal Regulations <Jaren Cordoba - Last Filed: 06/06/22 12:23> Patient History Date of Service: 06/06/22 Primary Care Provider: Dr. Dill Reason for admission: pneumonia History of Present Illness: Ms. Chavis is a 67 yo F with history of T2DM, HTN, HLD, CAD s/p CABG, CHF, hypothyroidism, and MCI who presents with one day of malaise, weakness, diarrhea, and decreased PO intake beginning at 5 pm yesterday. CXR showed left upper lobe is mildly hazy suspicious for pneumonia. WBC 31.7, BUN 31, Cr 1.37, GFR 42, Glu 300, and troponin 351. At bedside, patient is AOx3 and stable on 2L nasal cannula. - Past Medical/Surgical History Diabetic: Yes -: diabetes -: CHF -: HLD -: HTN -: hypothyroidism -: CAD -: CABG -: tubal ligation - Family History Family History: Reviewed- Non-Contributory - Social History Smoking Status: Never smoker Alcohol use: No CD- Drugs: No Caffeine use: No Place of Residence: Home <Jaren Cordoba - Last Filed: 06/06/22 12:23> Date of Service: 06/06/22 <Nilo Madrid - Last Filed: 06/06/22 21:17> Allergies No Known Allergies Allergy (Unverified 08/30/20 17:13) Home Medications: Aspirin [Aspirin EC 81 MG] 81 mg PO DAILY 08/31/20 Buspirone HCl [Buspar] 5 mg PO BID 08/31/20 Empagliflozin [Jardiance] 25 mg PO DAILY 08/31/20 Insulin NPH Human Isophane [Novolin N] 35 units SQ DAILY 08/31/20 Insulin Regular, Human [Novolin R] See Rx Instructions .ROUTE .COMPLEX 08/31/20 Levothyroxine [Synthroid] 88 mcg PO DAILY 08/31/20 Liothyronine [Cytomel] 25 mcg PO 0600 08/31/20 Lisinopril [Zestril] 40 mg PO DAILY 08/31/20 RX: Atorvastatin Calcium 40 mg PO DAILY AT SUPPER 08/31/20 RX: Citalopram Hydrobromide [Citalopram HBr] 40 mg PO DAILY 08/31/20 RX: Furosemide 20 mg PO DAILY 08/31/20 Trazodone [Desyrel] 100 mg PO BEDTIME PRN 08/31/20 Amlodipine [Norvasc] 10 mg PO DAILY 06/06/22 Ferrous Sulfate [Feosol] 325 mg PO DAILY 06/06/22 Insulin NPH Human [Novolin N (Humulin N)*] 25 units SQ DAILY 6PM 06/06/22 Memantine HCl [Namenda] 5 mg PO DAILY 06/06/22 RX: Donepezil [Aricept*] 10 mg PO BID 06/06/22 RX: Gabapentin 300 mg PO TID PRN 06/06/22 Review of Systems General: Malaise Eyes: Unremarkable ENT: Unremarkable Respiratory: Unremarkable Cardiovascular: Unremarkable Gastrointestinal: Diarrhea Genitourinary: Unremarkable Musculoskeletal: Unremarkable Integumentary: Unremarkable Neurological: Unremarkable Lymphatics: Unremarkable <Jaren Cordoba S - Last Filed: 06/06/22 12:23> Physical Examination - Vital Signs Temperature: 97.8 F Blood Pressure: 152/64 Pulse: 73 Respirations: 18 Pulse Ox (%): 95 - Physical Exam General: Alert, In no apparent distress, Oriented x3, Obese HEENT: Other (blind) Respiratory: Diminished Cardiovascular: Regular rate/rhythm, Normal S1 S2 Gastrointestinal: Normal bowel sounds, No tenderness Musculoskeletal: No tenderness Integumentary: No rashes Neurological: Normal speech, Normal affect Lymphatics: No axilla or inguinal lymphadenopathy - Studies Laboratory Data (last 24 hrs) 06/05/22 23:30: PT 11.8, INR 1.07, APTT 28.5 06/05/22 21:38: Sodium 142, Potassium 5.1, BUN 31 H, Creatinine 1.37 H, Glucose 300 H, Total Bilirubin 0.7, AST 13 L, ALT 19, Alkaline Phosphatase 78 06/05/22 21:38: WBC 31.70 H*, Hgb 12.6, Hct 38.5, Plt Count 176 <Jaren Cordoba S - Last Filed: 06/06/22 12:23> - Studies Laboratory Data (last 24 hrs) 06/05/22 23:30: PT 11.8, INR 1.07, APTT 28.5 06/05/22 21:38: Sodium 142, Potassium 5.1, BUN 31 H, Creatinine 1.37 H, Glucose 300 H, Total Bilirubin 0.7, AST 13 L, ALT 19, Alkaline Phosphatase 78 06/05/22 21:38: WBC 31.70 H*, Hgb 12.6, Hct 38.5, Plt Count 176 <Nilo Madrid - Last Filed: 06/06/22 21:17> Assessment and Plan - Plan Assessment Community acquired pneumonia Elevated troponin CAD s/p cardiac bypass Acute renal failure Congestive Heart Failure Type 2 diabetes mellitus Hypertension Hyperlipidemia Mild Cognitive Impairment Blindness Plan Community acquired pneumonia - CTPE pending - continue IV antibiotics - O2 prn, breathing treatments prn, gentle IV fluid hydration - blood cultures pending - WBC 31.7, CXR showed left upper lobe is mildly hazy suspicious for pneumonia Elevated troponin CAD s/p cardiac bypass - cardiology consulted, ECHO ordered - trend troponin, repeat EKG - daily aspirin, beta javier, statin - lipid and thyroid levels pending - full dose lovenox q12 hours Acute renal failure - gentle IV fluid hydration - monitor BMP closely Congestive Heart Failure - normovolemic, stable, continue to monitor Type 2 diabetes mellitus - sliding scale insulin and accuchecks Hypertension - resume home medication Hyperlipidemia - resume home medication Mild Cognitive Impairment - resume home medication Blindness - stable DVT ppx: Lovenox Full Code Discharge Plan: Home Plan to discharge in: 72 Hours - Advance Directives Does patient have a Living Will: No Does patient have a Durable POA for Healthcare: No - Code Status/Comfort Care Code Status: Full Code Critical Care: No Time Spent Managing Pts Care (In Minutes): 60 <Jaren Cordoba - Last Filed: 06/06/22 12:23> - Plan Patient admitted last night by ER to Dr. Zepeda - EMR listed him as PCP. ER was unable to get a hold of Dr. Zepeda until this morning, and reached out to me due to patient not being his patient in many years, and patient has new PCP Assumed care of this patient at 10:30am 06/06 <Nilo Madrid - Last Filed: 06/06/22 21:17>
[2022-06-06] MEDS: CEFEPIME 1 GM in NA CHLORIDE 0.9% 100 ML IV SCH (12:38)
[2022-06-06 12:57] LABS: Albumin 3.1 g/dL (3.4-5.0); Bilirubin Total 0.7 mg/dL (0.2-1.0); Potassium 3.9 mmol/L (3.5-5.1); Protein, Total 7.2 g/dL (6.4-8.2); Thyroid Stimulating Hormone 0.053 uIU/mL (0.360-3.740)
[2022-06-06] MEDS: VANCOMYCIN 1.5 GM in NA CHLORIDE 0.9% 500 ML IVPB SCH (13:27)
[2022-06-06] MEDS: ACETAMINOPHEN 500 MG TAB PO PRN ×2 (13:34→22:09)
--- NOTE | 2022-06-06 15:19 | RAD REPORT ---
EXAM DESCRIPTION: CT - Chest For Pe Angio - 06/06/2022 3:09 pm CLINICAL HISTORY: pneumonia, SOB COMPARISON: Chest For Pe Angio dated 10/21/2020; Chest Single View dated 06/05/2022 TECHNIQUE: Dynamically enhanced axial 3 mm thick images of the chest were obtained during administra tion of <100> mL Isovue 370 IV contrast. Coronal and oblique reconstruction images were generated and reviewed. Exam utilizes a protocol for optimal evaluation of pulmonary arterial tree. Maximum intensity projections 3D imaging was utilized All CT scans are performed using dose optimization technique as appropriate and may include automated exposure control or mA/KV adjustment according to patient size. FINDINGS: Chest Wall: No suspicious thyroid nodules or pathologic lymphadenopathy. Lungs: Nodularity present within the left upper primarily and to a lesser extent the left lower lobe. Pleura: No significant effusions or pneumothorax. Mediastinum/jaymie: No pathologic lymphadenopathy. Pulmonary arteries/Aorta: No filling defect identified. No aortic aneurysm. An orange main pulmonary artery. Heart: No significant pericardial effusion. Normal heart size. Multi-vessel coronary artery disease. Upper abdomen: No acute abnormality. Bones: No acute abnormality. Sternotomy. Healed many mural fracture . IMPRESSION: Negative for pulmonary embolism. Airspace disease in the left lung likely representing p neumonia.
--- NOTE | 2022-06-06 17:13 | CON ---
Date of Consultation: 06/06/2022 Reason For Consultation: Elevated troponin in the setting of pneumonia. History Of Present Illness: Ms. Chavis is a 67-year-old female. Has a history of hypertension, diabet es, dyslipidemia, chronic systolic congestive heart failure. Came in with left upper lobe pneumonia on the chest x-ray, white count of 31,000, troponin is 351, glucose was 300. No cardiac symptoms ___ except for shortness of breath, probably secondary to the pneumonia. The patient has had sonny e fever and chills. No palpitation. No syncope. Past Medical History: As stated above. Allergies: NONE. Review of Systems: Negative. Social History: Negative. Family History: Negative. Medications: At home include aspirin, Lipitor, Lasix, Aricept, Jardiance, metoprolol, Zestril, insul in, and thyroid. Physical Examination: General: The patient was rather somnolent, but responsive. Alert and oriented. Vital Signs: Afebrile, sinus rhythm. HEENT: Negative. Neck: Supple with no bruit, lymphadenopathy, JVD, or thyromegaly. Chest: Reveals crackles in the left upper and lower base. Cardiac: Revealed a regular rhythm and rate. No murmurs, gallops, or rubs. Abdomen: Benign. Extremities: Revealed no clubbing, cyanosis, or edema. Diagnostic Data: As stated earlier. Impression And Plan: 1.Elevated troponin secondary to demand ischemia from left upper lobe pneumonia, white count of 31,0 00. Echocardiogram is pending. 2.Diabetes. 3.Hypertension. 4.Dyslipidemia. 5.History of systolic congestive heart failure. Echocardiogram is pending. 6.Hypothyroidism. 7.Dementia, on Aricept and memantine. Again, continue present regimen, start antibiotics of choice by Dr. Zepeda. We will see what the echocardiogram shows. This is not an acute coronary syndrome. NB/MODL Voice ID: [id number] Report ID: [id number]
[2022-06-06] MEDS ORDERED: METOPROLOL TAR 25 MG TAB PO SCH (18:00)
[2022-06-06] MEDS: ENOXAPARIN 100 MG/ML SYR SQ SCH (21:17)
[2022-06-06] MEDS: ATORVASTATIN 40 MG TAB PO SCH (21:17)
[2022-06-06 21:37] LABS: Specific Gravity 1.025 (1.005-1.030); Urine Bilirubin NEGATIVE (Negative); Urine Blood Negative (Negative); Urine Clarity Clear (Clear); Urine Color Light-Yellow (Yellow); Urine Glucose 4+ (Over) (Negative); Urine Protein TRACE (Negative); Urine RBC <5 /HPF (None Seen); Urine Urobilinogen Normal (Normal); Urine pH 5.5 (5.0-7.0)
[2022-06-06] MEDS: MELATONIN 3 MG TABLET PO PRN (22:10)
[2022-06-07 04:26] LABS: Absolute Lymphocytes (CBC) 2.1 K/uL (0.7-4.9); Hematocrit 31.8 % (36.0-45.0); Lymphocytes % 11.5 % (15.3-44.8); MCV 92.7 fL (80-100); RBC Red Blood Cell Count 3.43 M/uL (3.86-4.86)
[2022-06-07 05:02] LABS: Albumin 2.6 g/dL (3.4-5.0); Bilirubin Total 0.5 mg/dL (0.2-1.0); Magnesium 1.7 mg/dL (1.8-2.4); Potassium 4.2 mmol/L (3.5-5.1); Protein, Total 6.4 g/dL (6.4-8.2)
[2022-06-07] MEDS: INSULIN -REGULAR HUMAN 50 UNIT/0.5 ML ML SQ SCH ×4 (07:30→21:00)
[2022-06-07] MEDS: ENOXAPARIN 100 MG/ML SYR SQ SCH ×2 (07:56→21:16)
[2022-06-07] MEDS: HYDRALAZINE HCL 20 MG/ML VIAL IV PRN (07:57)
[2022-06-07] MEDS: ONDANSETRON 4 MG/2 ML VIAL IV PRN ×2 (08:00→16:07)
[2022-06-07] MEDS: ASPIRIN EC 81 MG TAB PO SCH (08:01)
[2022-06-07] MEDS: ACETAMINOPHEN 500 MG TAB PO PRN ×2 (10:52→21:17)
--- NOTE | 2022-06-07 12:49 | CON ---
History Of Present Illness: This is a 67-year-old female. I was consulted for evaluation of pneumon ia and sepsis. The patient has significant past medical history of diabetes mellitus, hypertension, hyperlipidemia, coronary artery disease, status post CABG, congestive heart failure, hypothyroidism, coming in with generalized weakness and diarrhea, chest x-ray showing left upper lobe pneumonia with elevated WBC count of 31,000 on admission. The patient is currently being treated with cefepime and vancomycin. Still feeling not too well. Denies any chest pain, abdominal pain, constipation, or ming k pain. Past Medical History: As per HPI. Social History: Nonsmoker, nondrinker. Family History: Noncontributory. Medications: Vancomycin and cefepime. See MAR for other medications. Allergies: NO KNOWN DRUG ALLERGIES. Review of Systems: Unable to obtain at this time. Physical Examination: General: The patient is sitting in bed, not in any acute cardiopulmonary distress. Currently on 2 L nasal cannula. Vital Signs: Temperature 97, T-max of 100, pulse 74, respirations 18, blood pressure 145/49, 97% on 2 L nasal cannula. HEENT: Unremarkable. Neck: Supple. Lungs: With left-sided basilar crackles. Heart: S1, S2. Regular. Abdomen: Soft, nontender. Bowel sounds present. Extremity: No edema. Laboratory Data: Shows WBC 18.4 down from 31.7, hemoglobin 10.6, platelets are 152. Chemistry shows sodium 138, potassium 4.2, chloride 107, bicarb 27, BUN 18, creatinine 0.7, glucose 163. Albumin le lisa is 2.6. Micro data shows blood cultures done on 06/05, no growth for 24 hours. Another set of b lood cultures is growing gram-positive cocci done on 06/[address] scan of the chest done ye day, negative for pulmonary embolism, left lung likely represented pneumonia. Assessment And Plan: Left upper lobe pneumonitis with gram-positive cocci bacteremia versus contamin ation, leukocytosis, anemia of chronic disease, moderate protein-calorie malnourishment. We will con tinue antibiotic for 10 days. We will follow the patient as needed. No other recommendation at this time. NF/MODL Voice ID: [id number] Report ID: [id number]
[2022-06-07] MEDS: CEFEPIME 1 GM in NA CHLORIDE 0.9% 100 ML IV SCH (13:22)
--- NOTE | 2022-06-07 16:11 | EKG ---
Test Date: 2022-06-05 Test Time: 22:37:59 Inspector Tool: EZEKIEL MEASUREMENT RESULTS: Intervals: Rate: 89 NV: 154 QRSD: 92 QT: 346 QTc: 420 [place]: P: 39 NV: 154 QRS: -39 T: 113 INTERPRETIVE STATEMENTS: Normal sinus rhythm Left axis deviation Nonspecific ST and T wave abnormality Abnormal ECG Compared to ECG 10/21/2020 13:35:55 Left-axis deviation now present Incomplete right bundle-branch block no longer present Left ventricular hypertrophy no longer present Possible ischemia no longer present ST (T wave) deviation still present Electronically Signed On 06-07-22 16:08:45 CDT by Bryon Gold
--- NOTE | 2022-06-07 21:13 | PN ---
Date of Progress Note: 06/07/2022 Subjective: Seen at bedside. Does not have any chest pain. Has some shortness of breath. Review of Systems: No nausea, vomiting, diarrhea. No abdominal pain. No dysuria, polyuria, or urinary urgency. No ski n rash. No headache. All other systems reviewed and are negative except for what mentioned in HPI. Physical Examination: Vital Signs: Reviewed. Head and Neck: Pupils are equal, reactive to light. Intact eye movements. No JVD. No cervical lym phadenopathy. Neck is supple. Thyroid is not enlarged. Lungs: Clear to auscultation bilaterally. No rhonchi, rales, or crackles. No accessory muscle use. Heart: Irregular. No extra sounds. Abdomen: Soft, nontender. Bowel sounds positive. No organomegaly. No masses or hernia. No rigidi ty or rebound. Extremities: No clubbing, cyanosis. Intact pulses. Skin: No rashes. Neurologic: Alert, awake. No acute focal deficit appreciated. Investigations: Labs were reviewed. Assessment And Recommendations: 1.Elevated troponin due to demand ischemia, normal ejection fraction, and normal wall motion by echo . No further cardiac workup is recommended in the hospital setting and our plan is to follow up with the patient on outpatient basis for possible stress test. 2.Congestive heart failure, diastolic. Appears to be euvolemic. Continue current management. 3.Hypertension. Blood pressure is borderline. Continue home medications. /KATIANA Voice ID: [id number] Report ID: [id number]
[2022-06-07] MEDS: ATORVASTATIN 40 MG TAB PO SCH (21:17)
[2022-06-07] MEDS: MELATONIN 3 MG TABLET PO PRN (21:17)
--- NOTE | 2022-06-07 21:56 | P.PN ---
Date of Service: 06/07/22 Subjective: no acute events overnight feels about the same as yesterday denies any worsening of symptoms ROS: 10 point ROS as noted above, otherwise negative Physical Exam: Gen: NAD, AOx3 HEENT: normal conjunctiva, sclera anicteric CV: regular rate & rhythm, no edema Pulm: non-labored respirations, clear bilaterally Abd: soft, non-tender, non-distended Neuro: normal speech, normal affect, moves all extremities vitals reviewed Problem List Community acquired pneumonia Elevated troponin CAD s/p cardiac bypass Acute renal failure Congestive Heart Failure Type 2 diabetes mellitus Hypertension Hyperlipidemia Mild Cognitive Impairment Blindness Community acquired pneumonia - CT negative for PE, +pneumonia - continue IV antibiotics - O2 prn, breathing treatments prn, gentle IV fluid hydration - blood cultures pending - WBC 31.7 on admit, improved Elevated troponin CAD s/p cardiac bypass - cardiology consulted, ECHO ordered - suspect demand ischemia secondary to infection - daily aspirin, beta javier, statin - lipid and thyroid levels pending - full dose lovenox q12 hours Acute renal failure - gentle IV fluid hydration - monitor BMP closely Congestive Heart Failure - normovolemic, stable, continue to monitor Type 2 diabetes mellitus - sliding scale insulin and accuchecks Hypertension - resume home medication Hyperlipidemia - resume home medication Mild Cognitive Impairment - resume home medication Blindness - stable DVT ppx: Lovenox Code: full Dispo: home, anticipate ~3-4 days daughter is caregiver Time Spent Managing Pts Care (In Minutes): 35
[2022-06-08] MEDS: VANCOMYCIN 1.5 GM in NA CHLORIDE 0.9% 500 ML IVPB SCH (01:03)
[2022-06-08] MEDS: TRAZODONE 50 MG TABLET PO PRN ×2 (01:04→20:52)
[2022-06-08 04:18] LABS: Hematocrit 30.2 % (36.0-45.0); MCV 91.5 fL (80-100); MPV 9.3 fL (7.6-11.3)
[2022-06-08] MEDS ORDERED: GABAPENTIN 300 MG CAP PO PRN (04:20)
[2022-06-08 04:33] LABS: Albumin 2.6 g/dL (3.4-5.0); Bilirubin Total 0.6 mg/dL (0.2-1.0); Magnesium 1.7 mg/dL (1.8-2.4); Protein, Total 6.2 g/dL (6.4-8.2)
[2022-06-08] MEDS: HYDRALAZINE HCL 20 MG/ML VIAL IV PRN ×2 (07:19→20:51)
[2022-06-08] MEDS: INSULIN -REGULAR HUMAN 50 UNIT/0.5 ML ML SQ SCH ×4 (07:30→20:50)
[2022-06-08] MEDS: FERROUS SULFATE 325 MG TAB PO SCH (08:02)
[2022-06-08] MEDS: BUSPIRONE HCL 5 MG TABLET PO SCH ×2 (08:02→20:52)
[2022-06-08] MEDS: ACETAMINOPHEN 500 MG TAB PO PRN ×2 (08:02→13:47)
[2022-06-08] MEDS: AMLODIPINE 10 MG TAB PO SCH (08:02)
[2022-06-08] MEDS: ASPIRIN EC 81 MG TAB PO SCH (08:02)
--- NOTE | 2022-06-08 08:06 | ECHO ---
HEIGHT: 5 ft 2 in WEIGHT: 189 lb 0.037 oz DATE OF STUDY: 06/07/[address]: Yomi Cid MD 2-DIMENSIONAL: YES M.MODE: YES DOPPLER: YES COLOR FLOW: YES TDS: PORTABLE: YES DEFINITY: BUBBLE STUDY: DIAGNOSIS: CONGESTIVE HEART FAILURE CARDIAC HISTORY: CATHERIZATION: SURGERY: PROSTHETIC VALVE: PACEMAKER: MEASUREMENTS (cm) DIASTOLIC (NORMALS) SYSTOLIC (NORMALS) IVSd 1.3 (0.6-1.2) LA Diam 3.6 (1.9-4.0) LVEF 68% LVIDd 4.3 (3.5-5.7) LVIDs 2.7 (2.0-3.5) %FS 38% LVPWd 1.2 (0.6-1.2) Ao Diam 2.7 (2.0-3.7) 2 DIMENSIONAL ASSESSMENT: RIGHT ATRIUM: NORMAL LEFT ATRIUM: NORMAL RIGHT VENTRICLE: NORMAL LEFT VENTRICLE: NORMAL TRICUSPID VALVE: MILD TRICUSPID REGURGITATION MITRAL VALVE: MILD MITRAL REGURGITATION PULMONIC VALVE: NORMAL AORTIC VALVE: NORMAL PERICARDIAL EFFUSION: NONE AORTIC ROOT: NORMAL LEFT VENTRICULAR WALL MOTION: NORMAL DOPPLER/COLOR FLOW: MILD TRICUSPID REGURGITATION/ MILD MITRAL REGURGITATION COMMENTS: NORMAL LEFT VENTRICULAR EJECTION FRACTION 60-65%. NORMAL WALL MOTION. MILD TRICUSPID REGURGITATION. MILD MITRAL REGURGITATION. TECHNOLOGIST: MAXIMO NDIAYE
[2022-06-08] MEDS ORDERED: ASPIRIN EC 81 MG TAB PO SCH (09:00)
[2022-06-08] MEDS ORDERED: HOME MED 1 EA UNK (Lisinopril [Zestril] 40 MG Tablet) PO SCH (09:00)
[2022-06-08] MEDS: HOME MED 1 EA UNK (Empagliflozin [Jardiance] 25 MG Tablet) PO SCH (09:00)
[2022-06-08] MEDS: DONEPEZIL HCL 5 MG TAB PO SCH ×2 (09:34→20:52)
[2022-06-08] MEDS: MEMANTINE HCL 10 MG TABLET PO SCH (09:34)
[2022-06-08] MEDS: CITALOPRAM 10 MG TABLET PO SCH (09:34)
[2022-06-08] MEDS: lisinopriL 20 MG TAB PO SCH (09:35)
[2022-06-08] MEDS: ENOXAPARIN 40 MG/0.4 ML SQ SCH (09:41)
[2022-06-08] MEDS: CEFEPIME 1 GM in NA CHLORIDE 0.9% 100 ML IV SCH (13:46)
--- NOTE | 2022-06-08 14:01 | EKG ---
Test Date: 2022-06-08 Test Time: 04:19:17 Rn Geriatric: [place] MEASUREMENT RESULTS: Intervals: Rate: 57 AK: 162 QRSD: 106 QT: 404 QTc: 393 [place]: P: 75 [place]: 162 QRS: -34 T: 33 INTERPRETIVE STATEMENTS: Sinus bradycardia Left axis deviation Pulmonary disease pattern Nonspecific ST and T wave abnormality Abnormal ECG Compared to ECG 06/05/2022 22:37:59 Sinus rhythm no longer present ST (T wave) deviation still present Electronically Signed On 06-08-22 14:00:28 CDT by Bryon Gold
--- NOTE | 2022-06-08 16:20 | P.PN ---
Subjective Date of Service: 06/08/22 Primary Care Provider: Dr. Dill Chief Complaint: pneumonia Physical Examination - Vital Signs Temperature: 98.4 F Blood Pressure: 152/67 Pulse: 73 Respirations: 18 Pulse Ox (%): 97 - Studies Microbiology Data (last 24 hrs): 06/05/22 23:50 Blood - Blood Blood Culture Gram Stain - Final Assessment And Plan - Plan Physical Exam: Gen: NAD, AOx3 CVS: regular rate & rhythm, no edema Pulm: non-labored respirations, clear to auscultation Abd: soft, non-tender, non-distended Neuro: normal speech, normal affect, no focal motor deficits. vitals reviewed Problem List Community acquired pneumonia Elevated troponin CAD s/p cardiac bypass Acute renal failure Congestive Heart Failure Type 2 diabetes mellitus Hypertension Hyperlipidemia Mild Cognitive Impairment Blindness Community acquired pneumonia - CT negative for PE. - continue IV antibiotics - O2 prn, breathing treatments prn, gentle IV fluid hydration - blood cultures pending - WBC 31.7 on admit. Leukocytosis improved. Elevated troponin CAD s/p cardiac bypass - cardiology consulted, ECHO ordered - suspect demand ischemia secondary to infection - daily aspirin, beta javier, statin - lipid and thyroid levels pending -Cardiology input appreciated. -Discontinue full dose Lovenox. Acute renal failure - resolved Congestive Heart Failure - normovolemic, stable, continue to monitor Type 2 diabetes mellitus - sliding scale insulin and accuchecks Hypertension - continue home medication Hyperlipidemia -continue home medication Mild Cognitive Impairment -continue home medication DVT ppx: Lovenox Code: k 9 police officer Spent Managing Pts Care (In Minutes): 28.
[2022-06-08] MEDS ORDERED: ATORVASTATIN 40 MG TAB PO SCH (17:00)
[2022-06-08] MEDS: ATORVASTATIN 40 MG TAB PO SCH (20:52)
[2022-06-09] MEDS: MELATONIN 3 MG TABLET PO PRN (00:04)
--- NOTE | 2022-06-09 00:25 | PN ---
Subjective: Patient lying in bed. No new acute events. Denies any chest pain, abdominal pain, cons tipation, diarrhea. Objective: Vital Signs: Temperature 98, pulse 57, respirations 18, blood pressure 196/72. Lungs: Basal crackles. Heart: S1, S2 regular. Abdomen: Soft, nontender. Bowel sounds present. Extremities: No edema. Laboratory Data: Shows WBC 13.5, hemoglobin 10.4, platelets 159. Sodium 139, potassium 4, chloride 106, bicarb 29, BUN 15, creatinine 0.7, glucose 189. Assessment And Plan: Left lower lobe pneumonia with gram-positive cocci bacteremia and leukocytosis, improving. Anemia of chronic disease. Moderate protein-calorie malnourishment. Continue antibioti c and supportive care. We will follow the patient as needed. NF/MODL Voice ID: [id number] Report ID: [id number]
[2022-06-09] MEDS ORDERED: VANCOMYCIN 1.5 GM in NA CHLORIDE 0.9% 500 ML IVPB SCH (01:00)
[2022-06-09 03:51] LABS: Hematocrit 31.6 % (36.0-45.0); MCV 90.3 fL (80-100); MPV 8.8 fL (7.6-11.3)
[2022-06-09] MEDS: HYDRALAZINE HCL 20 MG/ML VIAL IV PRN (04:03)
[2022-06-09 04:05] LABS: Potassium 3.8 mmol/L (3.5-5.1)
[2022-06-09] MEDS: ACETAMINOPHEN 500 MG TAB PO PRN (04:06)
[2022-06-09] MEDS ORDERED: LIOTHYRONINE SOD 25 MCG TAB PO SCH (06:00)
[2022-06-09] MEDS ORDERED: LEVOTHYROXINE SOD 0.088 MG TAB PO SCH (06:30)
[2022-06-09] MEDS ORDERED: GLUCAGON 1 MG/VIAL IM PRN (07:28)
[2022-06-09] MEDS ORDERED: D50W 25 GM/50 ML SYRINGE IV PRN (07:28)
[2022-06-09] MEDS: INSULIN -REGULAR HUMAN 50 UNIT/0.5 ML ML SQ SCH (07:30)
[2022-06-09 08:49] VITALS: BP 144/56; TEMP 98.7
[2022-06-09] MEDS ORDERED: NPH (HUMAN) 100 UNITS/ML INSULIN SQ SCH ×2 (09:00→18:00)
[2022-06-09] MEDS: HOME MED 1 EA UNK (Empagliflozin [Jardiance] 25 MG Tablet) PO SCH (09:00)
[2022-06-09] MEDS: lisinopriL 20 MG TAB PO SCH (09:34)
[2022-06-09] MEDS: ENOXAPARIN 40 MG/0.4 ML SQ SCH (09:34)
[2022-06-09] MEDS: MEMANTINE HCL 10 MG TABLET PO SCH (09:35)
[2022-06-09] MEDS: DONEPEZIL HCL 5 MG TAB PO SCH (09:35)
[2022-06-09] MEDS: FERROUS SULFATE 325 MG TAB PO SCH (09:35)
[2022-06-09] MEDS: AMLODIPINE 10 MG TAB PO SCH (09:35)
[2022-06-09] MEDS: CITALOPRAM 10 MG TABLET PO SCH (09:36)
[2022-06-09] MEDS: ASPIRIN EC 81 MG TAB PO SCH (09:36)
[2022-06-09] MEDS: BUSPIRONE HCL 5 MG TABLET PO SCH (09:36)
[2022-06-09 09:54] VITALS: O2SAT 96
--- NOTE | 2022-06-09 10:15 | P.DS ---
Admission Date: 06/06/22 Discharge Date: 06/09/22 Primary Care Provider: Dr. Dill Disposition: DC HOME/HOME HEALTH CARE Discharge Condition: FAIR Reason for Admission: pneumonia Brief History of Present Illness: Ms. Chavis is a 67 yo F with history of T2DM, HTN, HLD, CAD s/p CABG, CHF, hypothyroidism, and MCI who presented with one day of malaise, weakness, diarrhea, and decreased PO intake. CXR showed left upper lobe is mildly hazy suspicious for pneumonia. WBC 31.7, BUN 31, Cr 1.37, GFR 42, Glu 300, and troponin 351. At bedside, patient is AOx3 and stable on 2L nasal cannula. Patient diagnosed with sepsis and pneumonia and admitted for further management. Hospital Course: Diagnosis Community acquired pneumonia Sepsis Elevated troponin CAD s/p cardiac bypass Acute renal failure Congestive Heart Failure Type 2 diabetes mellitus Hypertension Hyperlipidemia Mild Cognitive Impairment Blindness Community acquired pneumonia - CT negative for PE. -Patient treated with broad-spectrum antibiotics-cefepime and vancomycin -Seen by infectious disease who assisted with management. -Also treated with breathing treatments prn, gentle IV fluid hydration -1 blood Culture bottle grew staph hominis which is likely skin contaminant. Repeat blood culture yielded no growth. - WBC 31.7 on admit. Leukocytosis resolved with treatment. Elevated troponin CAD s/p cardiac bypass -Seen by cardiology-Dr. Gold ECHO ordered -Elevated troponin considered secondary to demand ischemia secondary to infection - daily aspirin, beta javier, statin -Cardiology input appreciated. -She was briefly treated with full dose Lovenox. Acute renal failure - resolved with IV hydration Congestive Heart Failure -Patient was compensated, stable. Type 2 diabetes mellitus -managed with sliding scale insulin and accuchecks. NPH insulin resumed on discharge Hypertension - continued home medication Hyperlipidemia -continued home medication Mild Cognitive Impairment -continued home medication. Patient clinically improved and deemed stable for discharge. Vital Signs/Physical Exam: Temp Pulse Resp BP Pulse Ox 98.7 F 55 14 144/56 H 96 06/09/22 08:00 06/09/22 09:35 06/09/22 08:00 06/09/22 09:35 06/09/22 08:00 General: Alert, In no apparent distress, Oriented x3 HEENT: Mucous membr. moist/pink Neck: JVD not distended Respiratory: Clear to auscultation bilaterally, Normal air movement Cardiovascular: Regular rate/rhythm, Normal S1 S2 Gastrointestinal: Soft and benign, Non-distended Musculoskeletal: No swelling Neurological: Other (No focal motor deficit) Laboratory Data at Discharge: WBC 9.50 K/uL (4.3-10.9) 06/09/22 03:32 Hgb 11.0 g/dL (12.0-15.0) L 06/09/22 03:32 Hct 31.6 % (36.0-45.0) L 06/09/22 03:32 Plt Count 183 K/uL (152-406) 06/09/22 03:32 PT 11.8 SECONDS (9.5-12.5) 06/05/22 23:30 INR 1.07 06/05/22 23:30 APTT 28.5 SECONDS (24.3-36.9) 06/05/22 23:30 Sodium 140 mmol/L (136-145) 06/09/22 03:32 Potassium 3.8 mmol/L (3.5-5.1) 06/09/22 03:32 BUN 15 mg/dL (7-18) 06/09/22 03:32 Creatinine 0.77 mg/dL (0.55-1.3) 06/09/22 03:32 Glucose 175 mg/dL (74-106) H 06/09/22 03:32 Magnesium 1.7 mg/dL (1.8-2.4) L 06/08/22 03:38 Total Bilirubin 0.6 mg/dL (0.2-1.0) 06/08/22 03:38 AST 16 U/L (15-37) 06/08/22 03:38 ALT 16 U/L (12-78) 06/08/22 03:38 Alkaline Phosphatase 63 U/L (45-117) 06/08/22 03:38 Triglycerides 177 mg/dL (<150) H 06/06/22 11:55 Cholesterol 102 mg/dL (<200) 06/06/22 11:55 HDL Cholesterol 51 mg/dL (40-60) 06/06/22 11:55 Cholesterol/HDL Ratio 2.00 06/06/22 11:55 Home Medications: Aspirin [Aspirin EC 81 MG] 81 mg PO DAILY 08/31/20 Atorvastatin Calcium 40 mg PO DAILY AT SUPPER 08/31/20 Buspirone HCl [Buspar*] 5 mg PO BID 08/31/20 Citalopram Hydrobromide [Citalopram HBr] 40 mg PO DAILY 08/31/20 Empagliflozin [Jardiance] 25 mg PO DAILY 08/31/20 Furosemide 20 mg PO DAILY 08/31/20 Insulin NPH Human Isophane [Novolin N] 35 units SQ DAILY 08/31/20 Insulin Regular, Human [Novolin R] See Rx Instructions .ROUTE .COMPLEX 08/31/20 Levothyroxine [Synthroid*] 88 mcg PO DAILY 08/31/20 Liothyronine [Cytomel*] 25 mcg PO 0600 08/31/20 Lisinopril [Zestril] 40 mg PO DAILY 08/31/20 Trazodone [Desyrel*] 100 mg PO BEDTIME PRN 08/31/20 Amlodipine [Norvasc*] 10 mg PO DAILY 06/06/22 Donepezil [Aricept*] 10 mg PO BID 06/06/22 Ferrous Sulfate [Ferrous Sulfate*] 325 mg PO DAILY 06/06/22 Gabapentin 300 mg PO TID PRN 06/06/22 Insulin NPH Human [Novolin N (Humulin N)*] 25 units SQ DAILY 6PM 06/06/22 Memantine HCl [Namenda] 5 mg PO DAILY 06/06/22 Amox/Clavulanate [Augmentin 875-125 Tab] 1 each PO BID #14 tab 06/09/22 Doxycycline Hyclate 100 mg PO BID #14 cap 06/09/22 New Medications: Amox/Clavulanate [Augmentin 875-125 Tab] 1 each PO BID #14 tab Doxycycline Hyclate 100 mg PO BID #14 cap Followup: NONE,NONE [Primary Care Provider] - Bryon Gold MD [ACTIVE - CAN ADMIT] - Time spent managing pt's care (in minutes): 38
== END 2022-06-09 11:19 | disposition home or self-care (01) | DRG 871 ==
LOC: ER 20:34 → ERHOLD 06-06 06:01 → 4TH 06-06 07:49
PROVIDERS: ADMIT Internal Medicine; ATTEND Internal Medicine
DX: A41.9 Sepsis, unspecified organism (principal); J18.9 Pneumonia, unspecified organism; I50.22 Chronic systolic (congestive) heart failure; I24.8 Other forms of acute ischemic heart disease; N17.9 Acute kidney failure, unspecified; E44.0 Moderate protein-calorie malnutrition; I11.0 Hypertensive heart disease with heart failure; E11.9 Type 2 diabetes mellitus without complications; E78.5 Hyperlipidemia, unspecified; E03.9 Hypothyroidism, unspecified; D63.8 Anemia in other chronic diseases classified elsewhere; H54.7 Unspecified visual loss; F03.90 Unspecified dementia, unspecified severity, without behavioral disturbance, psychotic disturbance, mood disturbance, and anxiety; I25.10 Atherosclerotic heart disease of native coronary artery without angina pectoris; E66.9 Obesity, unspecified; R19.7 Diarrhea, unspecified; Z79.4 Long term (current) use of insulin; Z95.1 Presence of aortocoronary bypass graft; Z98.51 Tubal ligation status; Z68.34 Body mass index [BMI] 34.0-34.9, adult; Z79.82 Long term (current) use of aspirin; Z79.890 Hormone replacement therapy; Z79.899 Other long term (current) drug therapy; Z20.822 Contact with and (suspected) exposure to COVID-19
CPT/HCPCS: 36415; 71045; 71275; 80048; 80053; 80061; 80202; 81001; 82947; 83036; 83605; 83735; 83880; 84439; 84443; 84484; 85025; 85027; 85379; 85610; 85730; 86140; 87040; 87077; 87186; 87205; 87811; 93005; 93306; 94760; 96365; 96372; 96375; 99284; J0360; J0456; J0692; J1650; J1815; J2405; J3370; J7030; J7040; J7050; Q9967

== ENCOUNTER 2022-12-21 17:46 | Inpatient (IN) | payer OTHER ==
--- OUTSIDE RECORDS SUMMARY | 2022-12-21 18:00 | XMS REPORT | Continuity of Care Document ---
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 regular, 1-06 Units as ity of human 19:27: directed 3 [place] (NOVOLIN R 16 (three) Medica l INJECTION) times Branch daily. [place]-3-DHA Yes 1{capsu Take 1 U nivers -EPA-Fish 1-06 le} capsule by ity of Oil (FISH 19:27: mouth [place] OIL) 1,000 16 daily. Medical mg (120 Branch mg-180 mg) Cap aspirin 81 2020-0 Yes 81mg Take 81 mg U nivers mg EC 1-06 by mouth ity of tablet 19:27: daily. [place] [address] Medical Branch insulin NPH Yes 65U inject 65 U nivers human 1-06 Units ity of isophane 19:27: [place] (NOVOLIN N 16 skin Medical [place]) daily. Branch insulin Yes 20U Inject 20 Unive rs regular, 1-06 Units as ity of human 19:27: directed 3 [place] (NOVOLIN R 16 (three) Medica l INJECTION) times Branch daily. [place]-3-DHA Yes 1{capsu Take 1 U nivers -EPA-Fish 1-06 le} capsule by ity of Oil (FISH 19:27: mouth [place] OIL) 1,000 16 daily. Medical mg (120 Branch mg-180 mg) Cap aspirin 81 2020-0 Yes 81mg Take 81 mg U nivers mg EC 1-06 by mouth ity of tablet 19:27: daily. [place] [address] Medical Branch insulin NPH 0 Yes 65U inject 65 U nivers human 1-06 Units ity of [place]ophane 19:27: [place] (NOVOLIN N 16 skin Medical [place]) daily. Branch insulin 0 Yes 20U Inject 20 Unive rs regular, 1-06 Units as ity of human 19:27: directed 3 [place] (NOVOLIN R 16 (three) Medica l INJECTION) times Branch daily. [place]-3-DHA Yes 1{capsu Take 1 U nivers -EPA-Fish 1-06 le} capsule by ity of Oil (FISH 19:27: mouth [place] OIL) 1,000 16 daily. Medical mg (120 Branch mg-180 mg) Cap aspirin 81 2020-0 Yes 81mg Take 81 mg U nivers mg EC 1-06 by mouth ity of tablet 19:27: daily. [place] [address] Medical Branch insulin NPH 2020-0 Yes 65U inject 65 U nivers human 1-06 Units ity of isophane 19:27: [place] (NOVOLIN N 16 skin Medical [place]) daily. Branch insulin 0 Yes 20U Inject 20 Unive rs regular, 1-06 Units as ity of human 19:27: directed 3 [place] (NOVOLIN R 16 (three) Medica l INJECTION) times [place] daily. [place]-3-DHA Yes 1{capsu Take 1 U nivers -EPA-Fish 1-06 le} capsule by ity of Oil (FISH 19:27: mouth [place] OIL) 1,000 16 daily. Medical mg (120 Branch mg-180 mg) Cap aspirin 81 2020-0 Yes 81mg Take 81 mg U nivers mg EC 1-06 by mouth ity of tablet 19:27: daily. [address] Branch insulin NPH 0 Yes 65U inject 65 U nivers human 1-06 Units ity of isophane 19:27: [place] (NOVOLIN N 16 skin Medical [place]) daily. Branch insulin 0 Yes 20U Inject 20 Unive rs regular, 1-06 Units as ity of human 19:27: directed 3 [place] (NOVOLIN R 16 (three) Medica l INJECTION) times [place] daily. [place]-3-DHA Yes 1{capsu Take 1 U nivers -EPA-Fish 1-06 le} capsule by ity of Oil (FISH 19:27: mouth [place] OIL) 1,000 16 daily. Medical mg (120 Branch mg-180 mg) Cap aspirin 81 202-0 Yes 81mg Take 81 mg U nivers mg EC 1-06 by mouth ity of tablet 19:27: daily. [place] [address] Medical Branch insulin NPH 2021-0 Yes 65U inject 65 U nivers human 1-06 Units ity of isophane 19:27: [place] (NOVOLIN N 16 skin Medical [place]) daily. Branch insulin 0 Yes 20U Inject 20 Unive rs regular, 1-06 Units as ity of human 19:27: directed 3 [place] (NOVOLIN R 16 (three) Medica l INJECTION) times Branch daily. [place]-3-DHA Yes 1{capsu Take 1 U nivers -EPA-Fish 1-06 le} capsule by ity of Oil (FISH 19:27: mouth [place] OIL) 1,000 16 daily. Medical mg (120 Branch mg-180 mg) Cap aspirin 81 2020-0 Yes 81mg Take 81 mg U nivers mg EC 1-06 by mouth ity of tablet 19:27: daily. [address] Branch insulin NPH Yes 65U inject 65 U nivers human 1-06 Units ity of isophane 19:27: [place] (NOVOLIN N 16 skin Medical [place]) daily. Branch insulin Yes 20U Inject 20 Unive rs regular, 1-06 Units as ity of human 19:27: directed 3 [place] (NOVOLIN R 16 (three) Medica l INJECTION) times Branch daily. [place]-3-DHA Yes 1{capsu Take 1 U nivers -EPA-Fish 1-06 le} capsule by ity of Oil (FISH 19:27: mouth [place] OIL) 1,000 16 daily. Medical mg (120 Branch mg-180 mg) Cap aspirin 81 2020-0 Yes 81mg Take 81 mg U nivers mg EC 1-06 by mouth ity of tablet 19:27: daily. [address] Branch insulin NPH Yes 65U inject 65 U nivers human 1-06 Units ity of [place]ophane 19:27: [place] (NOVOLIN N 16 skin Medical [place]) daily. Branch insulin Yes 20U Inject 20 Unive rs regular, 1-06 Units as ity of human 19:27: directed 3 [place] (NOVOLIN R 16 (three) Medica l INJECTION) times Branch daily. [place]-3-DHA Yes 1{capsu Take 1 U nivers -EPA-Fish 1-06 le} capsule by ity of Oil (FISH 19:27: mouth [place] OIL) 1,000 16 daily. Medical mg (120 Branch mg-180 mg) Cap aspirin 81 2020-0 Yes 81mg Take 81 mg U nivers mg EC 1-06 by mouth ity of tablet 19:27: daily. [place] [address] Medical Branch insulin NPH Yes 65U inject 65 U nivers human 1-06 Units ity of isophane 19:27: [place] (NOVOLIN N 16 skin Medical [place]) daily. Branch insulin 0 Yes 20U Inject 20 Unive rs regular, 1-06 Units as ity of human 19:27: directed 3 [place] (NOVOLIN R 16 (three) Medica l INJECTION) times Branch daily. [place]-3-DHA Yes 1{capsu Take 1 U nivers -EPA-Fish 1-06 le} capsule by ity of Oil (FISH 19:27: mouth [place] OIL) 1,000 16 daily. Medical mg (120 Branch mg-180 mg) Cap aspirin 81 2020-0 Yes 81mg Take 81 mg U nivers mg EC 1-06 by mouth ity of tablet 19:27: daily. [place] [address] Medical Branch insulin NPH Yes 65U inject 65 U nivers human 1-06 Units ity of isophane 13:27: [place] (NOVOLIN N 16 skin Medical [place]) daily. Branch insulin 0 Yes 20U Inject 20 Unive rs regular, 1-06 Units as ity of human 13:27: directed 3 [place] (NOVOLIN R 16 (three) Medica l INJECTION) times Branch daily. [place]-3-DHA Yes 1{capsu Take 1 U nivers -EPA-Fish 1-06 le} capsule by ity of Oil (FISH 13:27: mouth [place] OIL) 1,000 16 daily. Medical mg (120 Branch mg-180 mg) Cap aspirin 81 2020-0 Yes 81mg Take 81 mg U nivers mg EC 1-06 by mouth ity of tablet 13:27: daily. [place] [address] Medical Branch insulin NPH Yes 65U inject 65 U nivers human 1-06 Units ity of isophane 13:27: [place] (NOVOLIN N 16 skin Medical [place]) daily. Branch insulin 2021-0 Yes 20U Inject 20 Unive rs regular, 1-06 Units as ity of human 13:27: directed 3 [place] (NOVOLIN R 16 (three) Medica l INJECTION) times Branch daily. [place]-3-DHA Yes 1{capsu Take 1 U nivers -EPA-Fish 1-06 le} capsule by ity of Oil (FISH 13:27: mouth [place] OIL) 1,000 16 daily. Medical mg (120 Branch mg-180 mg) Cap aspirin 81 0 Yes 81mg Take 81 mg U nivers mg EC 1-06 by mouth ity of tablet 13:27: daily. [address] insulin NPH Yes 65U inject 65 U nivers human 1-06 Units ity of isophane 13:27: [place] (NOVOLIN N 16 skin Medical [place]) daily. Branch insulin Yes 20U Inject 20 Unive rs regular, 1-06 Units as ity of human 13:27: directed 3 [place] (NOVOLIN R 16 (three) Medica l INJECTION) times Branch daily. [place]-3-DHA Yes 1{capsu Take 1 U nivers -EPA-Fish 1-06 le} capsule by ity of Oil (FISH 13:27: mouth [place] OIL) 1,000 16 daily. Medical mg (120 Branch mg-180 mg) Cap aspirin 81 2020-0 Yes 81mg Take 81 mg U nivers mg EC 1-06 by mouth ity of tablet 13:27: daily. [address] doxycycline 2019-08- No [id number] 100mg Take 1 [facility] hyclate 100 1-25 12-10 capsule by i ty of mg capsule 00:00: 05:59 mouth [place] 00 :00 every 12 Medical (twelve) Branch hours for 14 days. doxycycline 2019-08- No [id number] 100mg Take 1 [facility] hyclate 100 1-25 12-10 capsule by i ty of mg capsule 00:00: 05:59 mouth [place] 00 :00 every 12 Medical (twelve) Branch hours for 14 days. doxycycline 2019-08- No [id number] 100mg Take 1 [facility] hyclate 100 1-25 12-10 capsule by i ty of mg capsule 00:00: 05:59 mouth [place] 00 :00 every 12 Medical (twelve) Branch hours for 14 days. doxycycline 2019-08- No [id number] 100mg Take 1 [facility] hyclate 100 125 12-10 capsule by i ty of mg capsule 00:00: 05:59 mouth [place] 00 :00 every 12 Medical (twelve) Branch hours for 14 days. amitriptyli 2019-08- No [id number] 10mg Take 1 [facility] ne 10 mg 08-25 [id number] tablet by ity of tablet 00:00: 05:59 mouth [place] 00 :00 every Medical evening Branch for 30 days. amitriptyli 2019-08- No [id number] 10mg Take 1 [facility] ne 10 mg 08-25 [id number] tablet by ity of tablet 00:00: 05:59 mouth [place] 00 :00 every Medical evening Branch for 30 days. amitriptyli 2019-08 No [id number] 10mg Take 1 [facility] ne 10 mg 08-25 [id number] tablet by ity of tablet 00:00: 05:59 mouth [place] 00 :00 every Medical evening Branch for 30 days. amitriptyli 2019-08 No [id number] 10mg Take 1 [facility] ne 10 mg 08-25 [id number] tablet by ity of tablet 00:00: 05:59 mouth [place] 00 :00 every Medical evening Branch for 30 days. amitriptyli 2019-08 No [id number] 10mg Take 1 [facility] ne 10 mg 08-25 [id number] tablet by ity of tablet 00:00: 05:59 mouth [place] 00 :00 every Medical evening Branch for 30 days. amitriptyli 2019-08- No [id number] 10mg Take 1 [facility] ne 10 mg 08-25 [id number] tablet by ity of tablet 00:00: 05:59 mouth [place] 00 :00 every Medical evening Branch for 30 days. amitriptyli 2019-08- No [id number] 10mg Take 1 [facility] ne 10 mg 08-25 [id number] tablet by ity of tablet 00:00: 05:59 mouth [place] 00 :00 every Medical evening Branch for 30 days. amitriptyli 2019-08- No [id number] 10mg Take 1 [facility] ne 10 mg 08-25 [id number] tablet by ity of tablet 00:00: 05:59 mouth [place] 00 :00 every Medical evening Branch for 30 days. amitriptyli 2019- 2020- No [id number] 10mg Take 1 [facility] ne 10 mg 08-25 [id number] tablet by ity of tablet 00:00: 05:59 mouth [place] 00 :00 every Medical evening Branch for 30 days. insulin NPH 2019-08 Yes 65U inject 65 U nivers human 0-28 Units ity of [place]ane 18:39: [place] (NOVOLIN N 44 skin Medical [place]) daily. Branch insulin 2019-08 Yes 20U Inject 20 Unive rs regular, 0-28 Units as ity of human 18:39: directed 3 [place] (NOVOLIN R 44 (three) Medica l INJECTION) times [place] daily. [place]-3-DHA 2019- Yes 1{capsu Take 1 U nivers -EPA-Fish 0-28 le} capsule by ity of Oil (FISH 18:39: mouth [place] OIL) 1,000 44 daily. Medical mg (120 Branch mg-180 mg) Cap aspirin 81 2019- Yes 81mg Take 81 mg U nivers mg EC 0-28 by mouth ity of tablet 18:39: daily. [address] insulin NPH 2019- Yes 65U inject 65 U nivers human 0-28 Units ity of isophane 18:39: [place] the [place] (NOVOLIN N 44 skin Medical [place]) daily. Branch insulin 2019-08 Yes 20U Inject 20 Unive rs regular, 0-28 Units as ity of human 18:39: directed 3 [place] (NOVOLIN R 44 (three) Medica l INJECTION) times [place] daily. [place]-3-DHA 2019- Yes 1{capsu Take 1 U nivers -EPA-Fish 0-28 le} capsule by ity of Oil (FISH 18:39: mouth [place] OIL) 1,000 44 daily. Medical mg (120 Branch mg-180 mg) Cap aspirin 81 2020-1 Yes 81mg Take 81 mg U nivers mg EC 0-28 by mouth ity of tablet 18:39: daily. [address] insulin NPH 2019-08 Yes 65U inject 65 U nivers human 0-28 Units ity of isophane 18:39: [place] (NOVOLIN N 44 skin Medical [place]) daily. Branch insulin 2019- Yes 20U Inject 20 Unive rs regular, 0-28 Units as ity of human 18:39: directed 3 [place] (NOVOLIN R 44 (three) Medica l INJECTION) times Branch daily. [place]-3-DHA 2019-08 Yes 1{capsu Take 1 U nivers -EPA-Fish 0-28 le} capsule by ity of Oil (FISH 18:39: mouth [place] OIL) 1,000 44 daily. Medical mg (120 Branch mg-180 mg) Cap aspirin 81 2019-08 Yes 81mg Take 81 mg U nivers mg EC 0-28 by mouth ity of tablet 18:39: daily. [address] Branch insulin NPH 2019-08 Yes 65U inject 65 U nivers human 0-28 Units ity of isophane 18:39: [place] the [place] (NOVOLIN N 44 skin Medical [place]) daily. Branch insulin 2019-08 Yes 20U Inject 20 Unive rs regular, 0-28 Units as ity of human 18:39: directed 3 [place] (NOVOLIN R 44 (three) Medica l INJECTION) times Branch daily. [place]-3-DHA 2019-08 Yes 1{capsu Take 1 U nivers -EPA-Fish 0-28 le} capsule by ity of Oil (FISH 18:39: mouth [place] OIL) 1,000 44 daily. Medical mg (120 Branch mg-180 mg) Cap aspirin 81 2019- Yes 81mg Take 81 mg U nivers mg EC 0-28 by mouth ity of tablet 18:39: daily. [address] insulin NPH 2019-08 Yes 65U inject 65 U nivers human 0-28 Units ity of isophane 18:39: [place] the [place] (NOVOLIN N 44 skin Medical [place]) daily. Branch insulin 2020 Yes 20U Inject 20 Unive rs regular, 0-28 Units as ity of human 18:39: directed 3 [place] (NOVOLIN R 44 (three) Medica l INJECTION) times Branch daily. [place]-3-DHA 2019-08 Yes 1{capsu Take 1 U nivers -EPA-Fish 0-28 le} capsule by ity of Oil (FISH 18:39: mouth [place] OIL) 1,000 44 daily. Medical mg (120 Branch mg-180 mg) Cap aspirin 81 2020- Yes 81mg Take 81 mg U nivers mg EC 0-28 by mouth ity of tablet 18:39: daily. [address] insulin NPH 2019- Yes 65U inject 65 U nivers human 0-28 Units ity of isophane 18:39: [place] the [place] (NOVOLIN N 44 skin Medical [place]) daily. Branch insulin 2020 Yes 20U Inject 20 Unive rs regular, 0-28 Units as ity of human 18:39: directed 3 [place] (NOVOLIN R 44 (three) Medica l INJECTION) times Branch daily. [place]-3-DHA 2019-08 Yes 1{capsu Take 1 U nivers -EPA-Fish 0-28 le} capsule by ity of Oil (FISH 18:39: mouth [place] OIL) 1,000 44 daily. Medical mg (120 Branch mg-180 mg) Cap aspirin 81 2019- Yes 81mg Take 81 mg U nivers mg EC 0-28 by mouth ity of tablet 18:39: daily. [address] insulin NPH 2019-08 Yes 65U inject 65 U nivers human 0-28 Units ity of isophane 18:39: [place] the [place] (NOVOLIN N 44 skin Medical [place]) daily. Branch insulin 2019-08 Yes 20U Inject 20 Unive rs regular, 0-28 Units as ity of human 18:39: directed 3 [place] (NOVOLIN R 44 (three) Medica l INJECTION) times Branch daily. [place]-3-DHA 2019-08 Yes 1{capsu Take 1 U nivers -EPA-Fish 0-28 le} capsule by ity of Oil (FISH 18:39: mouth [place] OIL) 1,000 44 daily. Medical mg (120 Branch mg-180 mg) Cap aspirin 81 2019- Yes 81mg Take 81 mg U nivers mg EC 0-28 by mouth ity of tablet 18:39: daily. [address] insulin NPH 2019-08 Yes 65U inject 65 U nivers human 0-28 Units ity of isophane 18:39: [place] the [place] (NOVOLIN N 44 skin Medical [place]) daily. Branch insulin 2019-08 Yes 20U Inject 20 Unive rs regular, 0-28 Units as ity of human 18:39: directed 3 [place] (NOVOLIN R 44 (three) Medica l INJECTION) times Branch daily. [place]-3-DHA 2019- Yes 1{capsu Take 1 U nivers -EPA-Fish 0-28 le} capsule by ity of Oil (FISH 18:39: mouth [place] OIL) 1,000 44 daily. Medical mg (120 Branch mg-180 mg) Cap aspirin 81 2020- Yes 81mg Take 81 mg U nivers mg EC 0-28 by mouth ity of tablet 18:39: daily. [address] Branch insulin NPH 2019-08 Yes 65U inject 65 U nivers human 0-28 Units ity of isophane 18:39: [place] the [place] (NOVOLIN N 44 skin Medical [place]) daily. Branch insulin 2019-08 Yes 20U Inject 20 Unive rs regular, 0-28 Units as ity of human 18:39: directed 3 [place] (NOVOLIN R 44 (three) Medica l INJECTION) times Branch daily. [place]-3-DHA 2019-08 Yes 1{capsu Take 1 U nivers -EPA-Fish 0-28 le} capsule by ity of Oil (FISH 18:39: mouth [place] OIL) 1,000 44 daily. Medical mg (120 Branch mg-180 mg) Cap aspirin 81 2019- Yes 81mg Take 81 mg U nivers mg EC 0-28 by mouth ity of tablet 18:39: daily. [address] Branch insulin NPH 2019-08 Yes 65U inject 65 U nivers human 0-28 Units ity of isophane 18:39: [place] the [place] (NOVOLIN N 44 skin Medical [place]) daily. Branch insulin 2019-08 Yes 20U Inject 20 Unive rs regular, 0-28 Units as ity of human 18:39: directed 3 [place] (NOVOLIN R 44 (three) Medica l INJECTION) times Branch daily. [place]-3-DHA 2019- Yes 1{capsu Take 1 U nivers -EPA-Fish 0-28 le} capsule by ity of Oil (FISH 18:39: mouth [place] OIL) 1,000 44 daily. Medical mg (120 Branch mg-180 mg) Cap aspirin 81 2020- Yes 81mg Take 81 mg U nivers mg EC 0-28 by mouth ity of tablet 18:39: daily. [address] Branch insulin NPH 2019-08 Yes 65U inject 65 U nivers human 0-28 Units ity of isophane 18:39: under the [place] (NOVOLIN N 44 skin Medical [place]) daily. Branch insulin 2019-08 Yes 20U Inject 20 Unive rs regular, 0-28 Units as ity of human 18:39: directed 3 [place] (NOVOLIN R 44 (three) Medica l INJECTION) times Branch daily. [place]-3-DHA 2019-08 Yes 1{capsu Take 1 U nivers -EPA-Fish 0-28 le} capsule by ity of Oil (FISH 18:39: mouth [place] OIL) 1,000 44 daily. Medical mg (120 Branch mg-180 mg) Cap aspirin 81 2019- Yes 81mg Take 81 mg U nivers mg EC 0-28 by mouth ity of tablet 18:39: daily. [address] Branch insulin NPH 2019-08 Yes 65U inject 65 U nivers human 0-28 Units ity of isophane 18:39: [place] the [place] (NOVOLIN N 44 skin Medical [place]) daily. Branch insulin 2019-08 Yes 20U Inject 20 Unive rs regular, 0-28 Units as ity of human 18:39: directed 3 [place] (NOVOLIN R 44 (three) Medica l INJECTION) times Branch daily. [place]-3-DHA 2019-08 Yes 1{capsu Take 1 U nivers -EPA-Fish 0-28 le} capsule by ity of Oil (FISH 18:39: mouth [place] OIL) 1,000 44 daily. Medical mg (120 Branch mg-180 mg) Cap aspirin 81 2019- Yes 81mg Take 81 mg U nivers mg EC 0-28 by mouth ity of tablet 18:39: daily. [address] insulin NPH 2019-08 Yes 65U inject 65 U nivers human 0-28 Units ity of isophane 18:39: [place] the [place] (NOVOLIN N 44 skin Medical [place]) daily. Branch insulin 2020 Yes 20U Inject 20 Unive rs regular, 0-28 Units as ity of human 18:39: directed 3 [place] (NOVOLIN R 44 (three) Medica l INJECTION) times Branch daily. [place]-3-DHA 2019- Yes 1{capsu Take 1 U nivers -EPA-Fish 0-28 le} capsule by ity of Oil (FISH 18:39: mouth [place] OIL) 1,000 44 daily. Medical mg (120 Branch mg-180 mg) Cap aspirin 81 2020- Yes 81mg Take 81 mg U nivers mg EC 0-28 by mouth ity of tablet 18:39: daily. [address] insulin NPH 2019-08 Yes 65U inject 65 U nivers human 0-28 Units ity of isophane 18:39: under the [place] (NOVOLIN N 44 skin Medical [place]) daily. Branch insulin 2020- Yes 20U Inject 20 Unive rs regular, 0-28 Units as ity of human 18:39: directed 3 [place] (NOVOLIN R 44 (three) Medica l INJECTION) times Branch daily. [place]-3-DHA 2019- Yes 1{capsu Take 1 U nivers -EPA-Fish 0-28 le} capsule by ity of Oil (FISH 18:39: mouth [place] OIL) 1,000 44 daily. Medical mg (120 Branch mg-180 mg) Cap aspirin 81 2019- Yes 81mg Take 81 mg U nivers mg EC 0-28 by mouth ity of tablet 18:39: daily. [address] insulin NPH 2019-08 Yes 65U inject 65 U nivers human 0-28 Units ity of isophane 18:39: [place] the [place] (NOVOLIN N 44 skin Medical [place]) daily. Branch insulin 2019-08 Yes 20U Inject 20 Unive rs regular, 0-28 Units as ity of human 18:39: directed 3 [place] (NOVOLIN R 44 (three) Medica l INJECTION) times Branch daily. [place]-3-DHA 2019- Yes 1{capsu Take 1 U nivers -EPA-Fish 0-28 le} capsule by ity of Oil (FISH 18:39: mouth [place] OIL) 1,000 44 daily. Medical mg (120 Branch mg-180 mg) Cap aspirin 81 2019- Yes 81mg Take 81 mg U nivers mg EC 0-28 by mouth ity of tablet 18:39: daily. [address] insulin NPH 2019-08 Yes 65U inject 65 U nivers human 0-28 Units ity of isophane 18:39: [place] the [place] (NOVOLIN N 44 skin Medical [place]) daily. Branch insulin 2020- Yes 20U Inject 20 Unive rs regular, 0-28 Units as ity of human 18:39: directed 3 [place] (NOVOLIN R 44 (three) Medica l INJECTION) times Branch daily. [place]-3-DHA 2019- Yes 1{capsu Take 1 U nivers -EPA-Fish 0-28 le} capsule by ity of Oil (FISH 18:39: mouth [place] OIL) 1,000 44 daily. Medical mg (120 Branch mg-180 mg) Cap aspirin 81 2019-08 Yes 81mg Take 81 mg U nivers mg EC 0-28 by mouth ity of tablet 18:39: daily. [place] 44 Medical Branch doxycycline 2019-08- No [id number] 100mg Take 1 [facility] 100 mg EC 0-19 07-12 [id number] tablet by it y of tablet 00:00: 05:59 mouth 2 [place] 00 :00 (two) Medical times Branch daily for 14 days. doxycycline 2019-08- No [id number] 100mg Take 1 [facility] 100 mg EC 0-19 07- [id number] tablet by it y of tablet 00:00: 05:59 mouth 2 [place] 00 :00 (two) Medical times Branch daily for 14 days. doxycycline 2019-08- No [id number] 100mg Take 1 [facility] 100 mg EC 0-19 07- [id number] tablet by it y of tablet 00:00: 05:59 mouth 2 [place] 00 :00 (two) Medical times Branch daily for 14 days. doxycycline 2019-08- No [id number] 100mg Take 1 [facility] 100 mg EC 0-19 07- [id number] tablet by it y of tablet 00:00: 05:59 mouth 2 [place] 00 :00 (two) Medical times Branch daily for 14 days. doxycycline 2019-08- No [id number] 100mg Take 1 [facility] 100 mg EC 0-19 07- [id number] tablet by it y of tablet 00:00: 05:59 mouth 2 [place] 00 :00 (two) Medical times Branch daily for 14 days. doxycycline 2019-08- No [id number] 100mg Take 1 [facility] 100 mg EC 0-19 07- [id number] tablet by it y of tablet 00:00: 05:59 mouth 2 [place] 00 :00 (two) Medical times Branch daily for 14 days. traMADoL 50 2019-08- No [id number] 50mg Take 1 Uni vers mg tablet 0-11 06-29 tablet by ity of 00:00: 04:59 mouth [...] Take 1 Uni vers mg tablet 0-13 -21 tablet by ity of 00:00: 04:59 mouth [place] 00 :00 every 6 Medical (six) Branch hours as needed for Pain (scale 4-6) for up to 7 days. Indication s: acute pain sulfamethox 2019-08- No [id number] 1{tbl} Take 1 [facility] azole-trime 0-12 10-20 [id number] tablet by ity of thoprim 00:00: 04:59 mouth 2 [place] (BACTRIM) 00 :00 (two) Medical 400-80 mg times Branch per tablet daily for 7 days. sulfamethox 2019-08- No [id number] 1{tbl} Take 1 [facility] azole-trime 0-12 10-20 [id number] tablet by ity of thoprim 00:00: 04:59 mouth 2 [place] (BACTRIM) 00 :00 (two) Medical 400-80 mg times Branch per tablet daily for 7 days. sulfamethox 2019-08- No [id number] 1{tbl} Take 1 [facility] azole-trime 0-12 10-20 [id number] tablet by ity of thoprim 00:00: 04:59 mouth 2 [place] (BACTRIM) 00 :00 (two) Medical 400-80 mg times Branch per tablet daily for 7 days. sulfamethox 2019-08- No [id number] 1{tbl} Take 1 [facility] azole-trime 0-12 10-20 [id number] tablet by ity of thoprim 00:00: 04:59 mouth 2 [place] (BACTRIM) 00 :00 (two) Medical 400-80 mg times Branch per tablet daily for 7 days. sulfamethox 2019-08- No [id number] 1{tbl} Take 1 [facility] azole-trime 0-12 10-20 [id number] tablet by ity of thoprim 00:00: 04:59 mouth 2 [place] (BACTRIM) 00 :00 (two) Medical 400-80 mg times Branch per tablet daily for 7 days. insulin NPH 2019- Yes 65U inject 65 U nivers human 9-25 Units ity of [place]ophane 01:11: [place] (NOVOLIN N 03 skin Medical [place]) daily. Branch insulin 2020-0 Yes 20U Inject 20 Unive rs regular, 9-25 Units as ity of human 01:11: directed 3 [place] (NOVOLIN R 03 (three) Medica l INJECTION) times Branch daily. [place]-3-DHA 2020-0 Yes 1{capsu Take 1 U nivers -EPA-Fish 9-25 le} capsule by ity of Oil (FISH 01:11: mouth [place] OIL) 1,000 03 daily. Medical mg (120 Branch mg-180 mg) Cap aspirin 81 2020-0 Yes 81mg Take 81 mg U nivers mg EC 9-25 by mouth ity of tablet 01:11: daily. [address] Branch insulin NPH 2020-0 Yes 65U inject 65 U nivers human 9-25 Units ity of isophane 01:11: [place] (NOVOLIN N 03 skin Medical [place]) daily. Branch insulin 2020-0 Yes 20U Inject 20 Unive rs regular, 9-25 Units as ity of human 01:11: directed 3 [place] (NOVOLIN R 03 (three) Medica l INJECTION) times Branch daily. [place]-3-DHA 2020-0 Yes 1{capsu Take 1 U nivers -EPA-Fish 9-25 le} capsule by ity of Oil (FISH 01:11: mouth [place] OIL) 1,000 03 daily. Medical mg (120 Branch mg-180 mg) Cap aspirin 81 2020-0 Yes 81mg Take 81 mg U nivers mg EC 9-25 by mouth ity of tablet 01:11: daily. [place] [address] Medical Branch insulin NPH 2020-0 Yes 65U inject 65 U nivers human 9-25 Units ity of [place]ophane 01:11: [place] (NOVOLIN N 03 skin Medical NM) daily. Branch insulin 2020-0 Yes 20U Inject 20 Unive rs regular, 9-25 Units as ity of human 01:11: directed 3 [place] (NOVOLIN R 03 (three) Medica l INJECTION) times Branch daily. [place]-3-DHA 2020-0 Yes 1{capsu Take 1 U nivers -EPA-Fish 9-25 le} capsule by ity of Oil (FISH 01:11: mouth [place] OIL) 1,000 03 daily. Medical mg (120 Branch mg-180 mg) Cap aspirin 81 2020-0 Yes 81mg Take 81 mg U nivers mg EC 9-25 by mouth ity of tablet 01:11: daily. [place] [address] Medical Branch insulin NPH 2020-0 Yes 65U inject 65 U nivers human 9-25 Units ity of isophane 01:11: [place] (NOVOLIN N 03 skin Medical [place]) daily. Branch insulin 2020-0 Yes 20U Inject 20 Unive rs regular, 9-25 Units as ity of human 01:11: directed 3 [place] (NOVOLIN R 03 (three) Medica l INJECTION) times Branch daily. [place]-3-DHA 2020-0 Yes 1{capsu Take 1 U nivers -EPA-Fish 9-25 le} capsule by ity of Oil (FISH 01:11: mouth [place] OIL) 1,000 03 daily. Medical mg (120 Branch mg-180 mg) Cap aspirin 81 2020-0 Yes 81mg Take 81 mg U nivers mg EC 9-25 by mouth ity of tablet 01:11: daily. [place] [address] Medical Branch insulin NPH 2020-0 Yes 65U inject 65 U nivers human 9-25 Units ity of isophane 01:11: [place] (NOVOLIN N 03 skin Medical [place]) daily. Branch insulin 2020-0 Yes 20U Inject 20 Unive rs regular, 9-25 Units as ity of human 01:11: directed 3 [place] (NOVOLIN R 03 (three) Medica l INJECTION) times Branch daily. [place]-3-DHA 2020-0 Yes 1{capsu Take 1 U nivers -EPA-Fish 9-25 le} capsule by ity of Oil (FISH 01:11: mouth [place] OIL) 1,000 03 daily. Medical mg (120 Branch mg-180 mg) Cap aspirin 81 2020-0 Yes 81mg Take 81 mg U nivers mg EC 9-25 by mouth ity of tablet 01:11: daily. [place] [address] Medical Branch insulin NPH 2020-0 Yes 65U inject 65 U nivers human 9-25 Units ity of isophane 01:11: [place] (NOVOLIN N 03 skin Medical NM) daily. Branch insulin 2020-0 Yes 20U Inject 20 Unive rs regular, 9-25 Units as ity of human 01:11: directed 3 [place] (NOVOLIN R 03 (three) Medica l INJECTION) times Branch daily. [place]-3-DHA 2020-0 Yes 1{capsu Take 1 U nivers -EPA-Fish 9-25 le} capsule by ity of Oil (FISH 01:11: mouth [place] OIL) 1,000 03 daily. Medical mg (120 Branch mg-180 mg) Cap aspirin 81 2020-0 Yes 81mg Take 81 mg U nivers mg EC 9-25 by mouth ity of tablet 01:11: daily. [place] [facility] insulin NPH 2020-0 Yes 65U inject 65 U nivers human 9-25 Units ity of isophane 01:11: [place] (NOVOLIN N 03 skin Medical NM) daily. Branch insulin 2020-0 Yes 20U Inject 20 Unive rs regular, 9-25 Units as ity of human 01:11: directed 3 [place] (NOVOLIN R 03 (three) Medica l INJECTION) times Branch daily. [place]-3-DHA 2020-0 Yes 1{capsu Take 1 U nivers -EPA-Fish 9-25 le} capsule by ity of Oil (FISH 01:11: mouth [place] OIL) 1,000 03 daily. Medical mg (120 Branch mg-180 mg) Cap aspirin 81 2020-0 Yes 81mg Take 81 mg U nivers mg EC 9-25 by mouth ity of tablet 01:11: daily. [place] [facility] insulin NPH 2020-0 Yes 65U inject 65 U nivers human 9-25 Units ity of isophane 01:11: [place] (NOVOLIN N 03 skin Medical NM) daily. Branch insulin 2020-0 Yes 20U Inject 20 Unive rs regular, 9-25 Units as ity of human 01:11: directed 3 [place] (NOVOLIN R 03 (three) Medica l INJECTION) times Branch daily. [place]-3-DHA 2020-0 Yes 1{capsu Take 1 U nivers -EPA-Fish 9-25 le} capsule by ity of Oil (FISH 01:11: mouth [place] OIL) 1,000 03 daily. Medical mg (120 Branch mg-180 mg) Cap aspirin 81 2020-0 Yes 81mg Take 81 mg U nivers mg EC 9-25 by mouth ity of tablet 01:11: daily. [place] [facility] insulin NPH 2020-0 Yes 65U inject 65 U nivers human 9-25 Units ity of isophane 01:11: [place] (NOVOLIN N 03 skin Medical [place]) daily. Branch insulin 2020-0 Yes 20U Inject 20 Unive rs regular, 9-25 Units as ity of human 01:11: directed 3 [place] (NOVOLIN R 03 (three) Medica l INJECTION) times Branch daily. [place]-3-DHA 2020-0 Yes 1{capsu Take 1 U nivers -EPA-Fish 05-16 le} capsule by ity of Oil (FISH 01:11: mouth [place] OIL) 1,000 03 daily. Medical mg (120 Branch mg-180 mg) Cap aspirin 81 2020-0 Yes 81mg Take 81 mg U nivers mg EC 05-16 by mouth ity of tablet 01:11: daily. [place] 03 Medical Branch lactated 2020-0 Yes 1000mL at 75 Univer s ringers IV 9-24 mL/hr, ity of infusion 23:00: 1,000 [place], [place] 1[place]000 [place] 00 IV Medical Infusion, Branch CONTINUOUS , Starting [place] 05/15/20 at 1800, Until Discontinu ed, Routine, PACU HYDROmorpho 2020-0 Yes .2mg 0.2 mg, Uni vers ne 9-24 Slow IV ity of (DILAUDID) 22:50: Push, [place] injection 40 Q5MIN PRN, Medi ju 0.2 mg 10 doses, Branch Starting [place] 05/15/20 at 1750, Until Discontinu ed, Routine, Pain (scale 7-10), PACU
Us e approved by (Faculty): PACU USE -ANESTHESI A SERVICE-HY DROMORPHON E INJECTIONS ondansetron 2020-0 Yes 4mg 4 mg, Slow Univers (ZOFRAN 9-24 IV Push, ity of (PF)) 22:50: PRN, 1 [place] injection 4 40 dose, Medical mg Starting Branch J[place] 05/15/20 at 1750, Until Discontinu ed, Routine, Nausea and Vomiting (N/V), PACU FENTanyl PF 2020-0 Yes 25ug 25 mcg, Uni vers (SUBLIMAZE 9-24 Slow IV ity of (PF)) 22:50: Push, [place] injection 39 Q5MIN PRN, Medi ju 25 mcg 4 doses, Branch Starting [place]essa 05/15/20 at 1750, Until Discontinu ed, Routine, Pain (scale 4-6), PACU sodium 2020-0 Yes PRN, Univers chloride 05-15 Starting ity of 0.9 % 18:41: [place] irrigation 00 05/15/20 at [facility] ical solution 1341, Branch Until Discontinu ed, Intra-op bupivacaine 2020-0 Yes PRN, Univer s -epinephrin 05-15 Starting ity of e-pf 18:41: [place] (SENSORCAIN [facility], Branch W/EPINEPHRI Until NE) [...] to 7 days. Indication s: acute pain [place]-3-DHA 2020-0 Yes 1{capsu Take 1 U nivers -EPA-Fish 9-21 le} capsule by ity of Oil (FISH 20:05: mouth [place] OIL) 1,000 35 daily. Medical mg (120 Branch mg-180 mg) Cap aspirin 81 2020-0 Yes 81mg Take 81 mg U nivers mg EC 9-21 by mouth ity of tablet 20:05: daily. [address] [place]-3-DHA 2020-0 Yes 1{capsu Take 1 U nivers -EPA-Fish 9-21 le} capsule by ity of Oil (FISH 20:05: mouth [place] OIL) 1,000 35 daily. Medical mg (120 Branch mg-180 mg) Cap aspirin 81 2020-0 Yes 81mg Take 81 mg U nivers mg EC 9-21 by mouth ity of tablet 20:05: daily. [address] [place]-3-DHA 2020-0 Yes 1{capsu Take 1 U nivers -EPA-Fish 9-21 le} capsule by ity of Oil (FISH 20:05: mouth [place] OIL) 1,000 35 daily. Medical mg (120 Branch mg-180 mg) Cap aspirin 81 2020-0 Yes 81mg Take 81 mg U nivers mg EC 9-21 by mouth ity of tablet 20:05: daily. [address] Branch insulin NPH 2020-0 Yes 65U [...] as ity of human 20:04: directed 3 [place] (NOVOLIN R 25 (three) Medica l INJECTION) [...] 4647 1{tbl} Take 1 U nivers en-codeine 9-05 05- tablet by ity of 300-30 mg 00:00: 04:59 mouth [place] tablet 00 :00 every 6 Medical (six) Branch hours as needed for Pain (scale 7-10) for up to 7 days. Indication s: acute pain acetaminoph 2020-0 2020- No 4647 1{tbl} Take 1 U nivers en-codeine 9-05 05-22 tablet by ity of 300-30 mg 00:00: 04:59 mouth [place] tablet 00 :00 every 6 Medical (six) Branch hours as needed for Pain (scale 7-10) for up to 7 days. Indication s: acute pain acetaminoph 2019-0 2020- No 4647 1{tbl} Take 1 U nivers en-codeine 05-05 tablet by ity of 300-30 mg 00:00: 04:59 mouth [place] tablet 00 :00 every 6 Medical (six) Branch hours as needed for Pain (scale 7-10) for up to 7 days. Indication s: acute pain levothyroxi 2020-0 Yes Univer s ne 88 mcg 9-13 ity of tablet 00:00: [place] 00 Medical Branch levothyroxi 2020-0 Yes Univer s ne 75 mcg 9-13 ity of tablet 00:00: [place] 00 Medical Branch JARDIANCE 2020-0 Yes Univers 25 mg Tab 9-13 ity of 00:00: [place] 00 Medical Branch traZODone 2020-0 Yes Univers 100 mg 9-13 ity of tablet 00:00: [place] 00 Medical Branch metoprolol 2020-0 Yes Univers succinate 9-13 ity of XL 50 mg 24 00:00: [place] hr tablet 00 Medical Branch levothyroxi 2020-0 Yes Univer s ne 88 mcg 9-13 ity of tablet 00:00: [place] 00 Medical Branch levothyroxi 2020-0 Yes Univer s ne 75 mcg 9-13 ity of tablet 00:00: [place] 00 Medical Branch JARDIANCE 2020-0 Yes Univers [...] 75 mcg 9-13 ity of tablet 00:00: [place] 00 Medical Branch JARDIANCE 2020-0 Yes Univers 25 mg Tab 9-13 ity of 00:00: [place] 00 Medical Branch traZODone 2020-0 Yes Univers 100 mg 9-13 ity of tablet 00:00: [place] 00 Medical Branch metoprolol 2020-0 Yes Univers succinate 9-13 ity of XL 50 mg 24 00:00: [place] hr tablet 00 Medical Branch levothyroxi 2020-0 Yes Univer s ne 88 mcg 9-13 ity of tablet 00:00: [place] 00 Medical Branch levothyroxi 2020-0 Yes Univer s ne 75 mcg 9-13 ity of tablet 00:00: [place] 00 Medical Branch JARDIANCE 2020-0 Yes Univers 25 mg Tab 9-13 ity of 00:00: [place] 00 Medical Branch traZODone 2020-0 Yes Univers 100 mg 9-13 ity of tablet 00:00: [place] 00 Medical Branch metoprolol 2020-0 Yes Univers succinate 9-13 ity of XL 50 mg 24 00:00: [place] hr tablet 00 Medical Branch levothyroxi 2020-0 Yes Univer s ne 88 mcg 9-13 ity of tablet 00:00: [place] 00 Medical Branch levothyroxi 2020-0 Yes Univer s ne 75 mcg 9-13 ity of tablet 00:00: [place] 00 Medical Branch JARDIANCE 2020-0 Yes Univers 25 mg Tab 9-13 ity of 00:00: [place] 00 Medical Branch traZODone 2020-0 Yes Univers 100 mg 9-13 ity of tablet 00:00: [place] 00 Medical Branch metoprolol 2020-0 Yes Univers succinate 9-13 ity of XL 50 mg 24 00:00: [place] hr tablet 00 Medical Branch levothyroxi 2020-0 Yes Univer s ne 88 mcg 9-13 ity of tablet 00:00: [place] 00 Medical Branch levothyroxi 2020-0 Yes Univer s ne 75 mcg 9-13 ity of tablet 00:00: [place] 00 Medical Branch JARDIANCE 2020-0 Yes Univers 25 mg Tab 9-13 ity of 00:00: [place] 00 Medical Branch traZODone 2020-0 Yes Univers 100 mg 9-13 ity of tablet 00:00: [place] 00 Medical Branch metoprolol 2020-0 Yes Univers succinate 9-13 ity of XL 50 mg 24 00:00: [place] hr tablet 00 Medical Branch levothyroxi 2020-0 Yes Univer s ne 88 mcg 9-13 ity of tablet 00:00: [place] 00 Medical Branch levothyroxi 2020-0 Yes Univer s ne 75 mcg 9-13 ity of tablet 00:00: [place] 00 Medical Branch JARDIANCE 2020-0 Yes Univers 25 mg Tab 9-13 ity of 00:00: [place] 00 Medical Branch traZODone 2020-0 Yes Univers 100 mg 9-13 ity of tablet 00:00: [place] 00 Medical Branch metoprolol 2020-0 Yes Univers succinate 9-13 ity of XL 50 mg 24 00:00: [place] hr tablet 00 Medical Branch levothyroxi 2020-0 Yes Univer s ne 88 mcg 9-13 ity of tablet 00:00: [place] 00 Medical Branch levothyroxi 2020-0 Yes Univer s ne 75 mcg 9-13 ity of tablet 00:00: [place] 00 Medical Branch JARDIANCE 2020-0 Yes Univers 25 mg Tab 9-13 ity of 00:00: [place] 00 Medical Branch traZODone 2020-0 Yes Univers 100 mg 9-13 ity of tablet 00:00: [place] 00 Medical Branch metoprolol 2020-0 Yes Univers succinate 9-13 ity of XL 50 mg 24 00:00: [place] hr tablet 00 Medical Branch levothyroxi 2020-0 Yes Univer s ne 88 mcg 9-13 ity of tablet 00:00: [place] 00 Medical Branch levothyroxi 2020-0 Yes Univer s ne 75 mcg 9-13 ity of tablet 00:00: [place] 00 Medical Branch JARDIANCE 2020-0 Yes Univers 25 mg Tab 9-13 ity of 00:00: [place] 00 Medical Branch traZODone 2020-0 Yes Univers 100 mg 9-13 ity of tablet 00:00: [place] 00 Medical Branch metoprolol 2020-0 Yes Univers succinate 9-13 ity of XL 50 mg 24 00:00: [place] hr tablet 00 Medical Branch levothyroxi 2020-0 Yes Univer s ne 88 mcg 9-13 ity of tablet 00:00: [place] 00 Medical Branch levothyroxi 2020-0 Yes Univer s ne 75 mcg 9-13 ity of tablet 00:00: [place] 00 Medical Branch JARDIANCE 2020-0 Yes Univers 25 mg Tab 9-13 ity of 00:00: [place] 00 Medical Branch traZODone 2020-0 Yes Univers 100 mg 9-13 ity of tablet 00:00: [place] 00 Medical Branch metoprolol 2020-0 Yes Univers succinate 9-13 ity of XL 50 mg 24 00:00: [place] hr tablet 00 Medical Branch levothyroxi 2020-0 Yes Univer s ne 88 mcg 9-13 ity of tablet 00:00: [place] 00 Medical Branch levothyroxi 2020-0 Yes Univer s ne 75 mcg 9-13 ity of tablet 00:00: [place] 00 Medical Branch JARDIANCE 2020-0 Yes Univers 25 mg Tab 9-13 ity of 00:00: [place] 00 Medical Branch traZODone 2020-0 Yes Univers 100 mg 9-13 ity of tablet 00:00: [place] 00 Medical Branch metoprolol 2020-0 Yes Univers succinate 9-13 ity of XL 50 mg 24 00:00: [place] hr tablet 00 Medical Branch levothyroxi 2020-0 Yes Univer s ne 88 mcg 9-13 ity of tablet 00:00: [place] 00 Medical Branch levothyroxi 2020-0 Yes Univer s ne 75 mcg 9-13 ity of tablet 00:00: [place] [address] Medical Branch JARDIANCE 2020-0 Yes Univers 25 mg Tab 9-13 ity of 00:00: [place] 00 Medical Branch traZODone 2020-0 Yes Univers 100 mg 9-13 ity of tablet 00:00: [place] [address] Medical Branch metoprolol 2020-0 Yes Univers succinate 9-13 ity of XL 50 mg 24 00:00: [place] hr tablet 00 Medical Branch levothyroxi 2020-0 Yes Univer s ne 88 mcg 9-13 ity of tablet 00:00: [place] 00 Medical Branch levothyroxi 2020-0 Yes Univer s ne 75 mcg 9-13 ity of tablet 00:00: [place] 00 Medical Branch JARDIANCE 2020-0 Yes Univers 25 mg Tab 9-13 ity of 00:00: [place] 00 Medical Branch traZODone 2020-0 Yes Univers 100 mg 9-13 ity of tablet 00:00: [place] 00 Medical Branch metoprolol 2020-0 Yes Univers succinate 9-13 ity of XL 50 mg 24 00:00: [place] hr tablet 00 Medical Branch levothyroxi 2020-0 Yes Univer s ne 88 mcg 9-13 ity of tablet 00:00: [place] 00 Medical Branch levothyroxi 2020-0 Yes Univer s ne 75 mcg 9-13 ity of tablet 00:00: [place] 00 Medical Branch JARDIANCE 2020-0 Yes Univers 25 mg Tab 9-13 ity of 00:00: [place] 00 Medical Branch traZODone 2020-0 Yes Univers 100 mg 9-13 ity of tablet 00:00: [place] 00 Medical Branch metoprolol 2020-0 Yes Univers succinate 9-13 ity of XL 50 mg 24 00:00: [place] hr tablet 00 Medical Branch levothyroxi 2020-0 Yes Univer s ne 88 mcg 9-13 ity of tablet 00:00: [place] 00 Medical Branch levothyroxi 2020-0 Yes Univer s ne 75 mcg 9-13 ity of tablet 00:00: [place] 00 Medical Branch JARDIANCE 2020-0 Yes Univers 25 mg Tab 9-13 ity of 00:00: [place] 00 Medical Branch traZODone 2020-0 Yes Univers 100 mg 9-13 ity of tablet 00:00: [place] [address] Medical Branch metoprolol 2020-0 Yes Univers succinate 9-13 ity of XL 50 mg 24 00:00: [place] hr tablet 00 Medical Branch levothyroxi 2020-0 Yes Univer s ne 88 mcg 9-13 ity of tablet 00:00: [place] 00 Medical Branch levothyroxi 2020-0 Yes Univer s ne 75 mcg 9-13 ity of tablet 00:00: [place] [address] Medical Branch JARDIANCE 2020-0 Yes Univers 25 mg Tab 9-13 ity of 00:00: [place] 00 Medical Branch traZODone 2020-0 Yes Univers 100 mg 9-13 ity of tablet 00:00: [place] 00 Medical Branch metoprolol 2020-0 Yes Univers succinate 9-13 ity of XL 50 mg 24 00:00: [place] hr tablet 00 Medical Branch levothyroxi 2020-0 Yes Univer s ne 88 mcg 9-13 ity of tablet 00:00: [place] 00 Medical Branch levothyroxi 2020-0 Yes Univer s ne 75 mcg 9-13 ity of tablet 00:00: [place] 00 Medical Branch JARDIANCE 2020-0 Yes Univers 25 mg Tab 9-13 ity of 00:00: [place] 00 Medical Branch traZODone 2020-0 Yes Univers 100 mg 9-13 ity of tablet 00:00: [place] 00 Medical Branch metoprolol 2020-0 Yes Univers succinate 9-13 ity of XL 50 mg 24 00:00: [place] hr tablet 00 Medical Branch levothyroxi 2020-0 Yes Univer s ne 88 mcg 9-13 ity of tablet 00:00: [place] 00 Medical Branch levothyroxi 2020-0 Yes Univer s ne 75 mcg 9-13 ity of tablet 00:00: [place] 00 Medical Branch JARDIANCE 2020-0 Yes Univers 25 mg Tab 9-13 ity of 00:00: [place] 00 Medical Branch traZODone 2020-0 Yes Univers 100 mg 9-13 ity of tablet 00:00: [place] 00 Medical Branch metoprolol 2020-0 Yes Univers succinate 9-13 ity of XL 50 mg 24 00:00: [place] hr tablet 00 Medical Branch levothyroxi 2020-0 Yes Univer s ne 88 mcg 9-13 ity of tablet 00:00: [place] 00 Medical Branch levothyroxi 2020-0 Yes Univer s ne 75 mcg 9-13 ity of tablet 00:00: [place] 00 Medical Branch JARDIANCE 2020-0 Yes Univers 25 mg Tab 9-13 ity of 00:00: [place] 00 Medical Branch traZODone 2020-0 Yes Univers 100 mg 9-13 ity of tablet 00:00: [place] 00 Medical Branch metoprolol 2020-0 Yes Univers succinate 9-13 ity of XL 50 mg 24 00:00: [place] hr tablet 00 Medical Branch levothyroxi 2020-0 Yes Univer s ne 88 mcg 9-13 ity of tablet 00:00: [place] 00 Medical Branch levothyroxi 2020-0 Yes Univer s ne 75 mcg 9-13 ity of tablet 00:00: [place] 00 Medical Branch JARDIANCE 2020-0 Yes Univers 25 mg Tab 9-13 ity of 00:00: [place] 00 Medical Branch traZODone 2020-0 Yes Univers 100 mg 9-13 ity of tablet 00:00: [place] 00 Medical Branch metoprolol 2020-0 Yes Univers succinate 9-13 ity of XL 50 mg 24 00:00: [place] hr tablet 00 Medical Branch levothyroxi 2020-0 Yes Univer s ne 88 mcg 9-13 ity of tablet 00:00: [place] 00 Medical Branch levothyroxi 2020-0 Yes Univer s ne 75 mcg 9-13 ity of tablet 00:00: [place] 00 Medical Branch JARDIANCE 2020-0 Yes Univers 25 mg Tab 9-13 ity of 00:00: [place] 00 Medical Branch traZODone 2020-0 Yes Univers 100 mg 9-13 ity of tablet 00:00: [place] 00 Medical Branch metoprolol 2020-0 Yes Univers succinate 9-13 ity of XL 50 mg 24 00:00: [place] hr tablet 00 Medical Branch levothyroxi 2020-0 Yes Univer s ne 88 mcg 9-13 ity of tablet 00:00: [place] 00 Medical Branch levothyroxi 2020-0 Yes Univer s ne 75 mcg 9-13 ity of tablet 00:00: [place] 00 Medical Branch JARDIANCE 2020-0 Yes Univers 25 mg Tab 9-13 ity of 00:00: [place] 00 Medical Branch traZODone 2020-0 Yes Univers 100 mg 9-13 ity of tablet 00:00: [place] 00 Medical Branch metoprolol 2020-0 Yes Univers succinate 9-13 ity of XL 50 mg 24 00:00: [place] hr tablet 00 Medical Branch levothyroxi 2020-0 Yes Univer s ne 88 mcg 9-13 ity of tablet 00:00: [place] [address] Medical Branch levothyroxi 2020-0 Yes Univer s ne 75 mcg 9-13 ity of tablet 00:00: [place] [address] Medical Branch JARDIANCE 2020-0 Yes Univers 25 mg Tab 9-13 ity of 00:00: [place] 00 Medical Branch traZODone 2020-0 Yes Univers 100 mg 9-13 ity of tablet 00:00: [place] 00 Medical Branch metoprolol 2020-0 Yes Univers succinate 9-13 ity of XL 50 mg 24 00:00: [place] hr tablet 00 Medical Branch levothyroxi 2020-0 Yes Univer s ne 88 mcg 9-13 ity of tablet 00:00: [place] 00 Medical Branch levothyroxi 2020-0 Yes Univer s ne 75 mcg 9-13 ity of tablet 00:00: [place] 00 Medical Branch JARDIANCE 2020-0 Yes Univers 25 mg Tab 9-13 ity of 00:00: [place] 00 Medical Branch traZODone 2020-0 Yes Univers 100 mg 9-13 ity of tablet 00:00: [place] 00 Medical Branch metoprolol 2020-0 Yes Univers succinate 9-13 ity of XL 50 mg 24 00:00: [place] hr tablet 00 Medical Branch levothyroxi 2020-0 Yes Univer s ne 88 mcg 9-13 ity of tablet 00:00: [place] 00 Medical Branch levothyroxi 2020-0 Yes Univer s ne 75 mcg 9-13 ity of tablet 00:00: [place] 00 Medical Branch JARDIANCE 2020-0 Yes Univers 25 mg Tab 9-13 ity of 00:00: [place] 00 Medical Branch traZODone 2020-0 Yes Univers 100 mg 9-13 ity of tablet 00:00: [place] 00 Medical Branch metoprolol 2020-0 Yes Univers succinate 9-13 ity of XL 50 mg 24 00:00: [place] hr tablet 00 Medical Branch levothyroxi 2020-0 Yes Univer s ne 88 mcg 9-13 ity of tablet 00:00: [place] 00 Medical Branch levothyroxi 2020-0 Yes Univer s ne 75 mcg 9-13 ity of tablet 00:00: [place] [address] Medical Branch JARDIANCE 2020-0 Yes Univers 25 mg Tab 9-13 ity of 00:00: [place] 00 Medical Branch traZODone 2020-0 Yes Univers 100 mg 9-13 ity of tablet 00:00: [place] 00 Medical Branch metoprolol 2020-0 Yes Univers succinate 9-13 ity of XL 50 mg 24 00:00: [place] hr tablet 00 Medical Branch levothyroxi 2020-0 Yes Univer s ne 88 mcg 9-13 ity of tablet 00:00: [place] 00 Medical Branch levothyroxi 2020-0 Yes Univer s ne 75 mcg 9-13 ity of tablet 00:00: [place] 00 Medical Branch JARDIANCE 2020-0 Yes Univers 25 mg Tab 9-13 ity of 00:00: [place] 00 Medical Branch traZODone 2020-0 Yes Univers 100 mg 9-13 ity of tablet 00:00: [place] 00 Medical Branch metoprolol 2020-0 Yes Univers succinate 9-13 ity of XL 50 mg 24 00:00: [place] hr tablet 00 Medical Branch levothyroxi 2020-0 Yes Univer s ne 88 mcg 9-13 ity of tablet 00:00: [place] 00 Medical Branch levothyroxi 2020-0 Yes Univer s ne 75 mcg 9-13 ity of tablet 00:00: [place] 00 [facility] Branch JARDIANCE 2020-0 Yes Univers 25 mg Tab 9-13 ity of 00:00: [place] 00 Medical Branch traZODone 2020-0 Yes Univers 100 mg 9-13 ity of tablet 00:00: [place] 00 Medical Branch metoprolol 2020-0 Yes Univers succinate 9-13 ity of XL 50 mg 24 00:00: [place] hr tablet 00 Medical Branch levothyroxi 2020-0 Yes Univer s ne 88 mcg 9-13 ity of tablet 00:00: [place] 00 [facility] Branch levothyroxi 2020-0 Yes Univer s ne 75 mcg 9-13 ity of tablet 00:00: [place] 00 Medical Branch JARDIANCE 2020-0 Yes Univers 25 mg Tab 9-13 ity of 00:00: [place] 00 Medical Branch traZODone 2020-0 Yes Univers 100 mg 9-13 ity of tablet 00:00: [place] 00 Medical Branch metoprolol 2020-0 Yes Univers succinate 9-13 ity of XL 50 mg 24 00:00: [place] hr tablet 00 Medical Branch levothyroxi 2020-0 Yes Univer s ne 88 mcg 9-13 ity of tablet 00:00: [place] 00 Medical Branch levothyroxi 2020-0 Yes Univer s ne 75 mcg 9-13 ity of tablet 00:00: [place] 00 [facility] Branch JARDIANCE 2020-0 Yes Univers 25 mg Tab 9-13 ity of 00:00: [place] 00 Medical Branch traZODone 2020-0 Yes Univers 100 mg 9-13 ity of tablet 00:00: [place] 00 Medical Branch metoprolol 2020-0 Yes Univers succinate 9-13 ity of XL 50 mg 24 00:00: [place] hr tablet 00 Medical Branch JARDIANCE 2020-0 Yes Univers 25 mg Tab 9-13 ity of 00:00: [place] 00 Medical Branch levothyroxi 2020-0 Yes Rula s ne 88 mcg 9-13 ity of tablet 00:00: [place] 00 Medical Branch levothyroxi 2020-0 Yes Univjerad s ne 75 mcg 9-13 ity of tablet 00:00: [place] 00 [facility] Branch JARDIANCE 2020-0 Yes Univers 25 mg Tab 9-13 ity of 00:00: [place] 00 [facility] Branch traZODone 2020-0 Yes Univers 100 mg 9-13 ity of tablet 00:00: [place] 00 Medical Branch metoprolol 2020-0 Yes Univers succinate 9-13 ity of XL 50 mg 24 00:00: [place] hr tablet 00 Medical Branch traZODone 2020-0 Yes Univers 100 mg 9-13 ity of tablet 00:00: [place] 00 Medical Branch levothyroxi 2020-0 Yes Pranayer s ne 88 mcg 9-13 ity of tablet 00:00: [place] 00 [facility] Branch levothyroxi 2020-0 Yes Univer s ne 75 mcg 9-13 ity of tablet 00:00: [place] 00 [facility] Branch JARDIANCE 2020-0 Yes Univers 25 mg Tab 9-13 ity of 00:00: [place] 00 Medical Branch metoprolol 2020-0 Yes Univers succinate 9-13 ity of XL 50 mg 24 00:00: [place] hr tablet 00 Medical Branch traZODone 2020-0 Yes Univers 100 mg 9-13 ity of tablet 00:00: [place] 00 [facility] Branch metoprolol 2020-0 Yes Univers succinate 9-13 ity of XL 50 mg 24 00:00: [place] hr tablet 00 Medical Branch levothyroxi 2020-0 Yes Univer s ne 88 mcg 9-13 ity of tablet 00:00: [place] 00 [facility] Branch levothyroxi 2020-0 Yes Univer s ne 75 mcg 9-13 ity of tablet 00:00: [place] 00 [facility] Branch JARDIANCE 2020-0 Yes Univers 25 mg Tab 9-13 ity of 00:00: [place] 00 [facility] Branch traZODone 2020-0 Yes Univers 100 mg 9-13 ity of tablet 00:00: [place] 00 [facility] Branch metoprolol 2020-0 Yes Univers succinate 9-13 ity of XL 50 mg 24 00:00: [place] hr tablet 00 Medical Branch levothyroxi 2020-0 Yes Univer s ne 88 mcg 9-13 ity of tablet 00:00: [place] 00 [facility] Branch levothyroxi 2020-0 Yes Univer s ne 75 mcg 9-13 ity of tablet 00:00: [place] 00 [facility] Branch levothyroxi 2020-0 Yes Univer s ne 88 mcg 9-13 ity of tablet 00:00: [place] 00 [facility] Branch levothyroxi 2020-0 Yes Univer s ne 75 mcg 9-13 ity of tablet 00:00: [place] 00 [facility] Branch JARDIANCE 2020-0 Yes Univers 25 mg Tab 9-13 ity of 00:00: [place] 00 Medical Branch traZODone 2020-0 Yes Univers 100 mg 9-13 ity of tablet 00:00: [place] 00 Medical Branch metoprolol 2020-0 Yes Univers succinate 9-13 ity of XL 50 mg 24 00:00: [place] hr tablet 00 Medical Branch levothyroxi 2020-0 Yes Univer s ne 88 mcg 9-13 ity of tablet 00:00: [place] 00 [facility] levothyroxi 2020-0 Yes Univer s ne 75 mcg 9-13 ity of tablet 00:00: [place] 00 [facility] JARDIANCE 2020-0 Yes [facility] 25 mg Tab 9-13 ity of 00:00: [place] 00 [facility] traZODone 2020-0 Yes [facility] 100 mg 9-13 ity of tablet 00:00: [place] 00 [facility] metoprolol 2020-0 Yes [facility] succinate 9-13 ity of XL 50 mg 24 00:00: [place] hr tablet 00 [facility] levothyroxi 2020-0 Yes Un[facility] s ne 88 mcg 9-13 ity of tablet 00:00: [place] 00 [facility] levothyroxi 2020-0 Yes [facility] ne 75 mcg 9-13 ity of tablet 00:00: [place] 00 [facility] JARDIANCE 2020-0 Yes [facility] 25 mg Tab 9-13 ity of 00:00: [place] 00 [facility] traZODone 2020-0 Yes [facility] 100 mg 9-13 ity of tablet 00:00: [place] 00 [facility] metoprolol 2020-0 Yes [facility] succinate 9-13 ity of XL 50 mg 24 00:00: [place] hr tablet 00 [facility] levothyroxi 2020-0 Yes Univer s ne 88 mcg 9-13 ity of tablet 00:00: [place] 00 [facility] levothyroxi 2020-0 Yes [facility] ne 75 mcg 9-13 ity of tablet 00:00: [place] 00 [facility] JARDIANCE 2020-0 Yes [facility] 25 mg Tab 9-13 ity of 00:00: [place] 00 [facility] traZODone 2020-0 Yes [facility] 100 mg 9-13 ity of tablet 00:00: [place] 00 [facility] metoprolol 2020-0 Yes [facility] succinate 9-13 ity of XL 50 mg 24 00:00: [place] hr tablet 00 [facility] levothyroxi 2020-0 Yes Univer [facility] ne 88 mcg 9-13 ity of tablet 00:00: [place] 00 [facility] levothyroxi 2020-0 Yes [facility] ne 75 mcg 9-13 ity of tablet 00:00: [place] 00 [facility] JARDIANCE 2020-0 Yes [facility] 25 mg Tab 9-13 ity of 00:00: [place] 00 [facility] traZODone 2020-0 Yes [facility] 100 mg 9-13 ity of tablet 00:00: [place] 00 [facility] metoprolol 2020-0 Yes [facility] succinate 9-13 ity of XL 50 mg 24 00:00: [place] hr tablet 00 [facility] levothyroxi 2020-0 Yes [facility] ne 88 mcg 9-13 ity of tablet 00:00: [place] 00 [facility] levothyroxi 2020-0 Yes [facility] ne 75 mcg 9-13 ity of tablet 00:00: [place] 00 [facility] JARDIANCE 2020-0 Yes [facility] 25 mg Tab 9-13 ity of 00:00: [place] 00 [facility] traZODone 2020-0 Yes [facility] 100 mg 9-13 ity of tablet 00:00: [place] 00 [facility] metoprolol 2020-0 Yes [facility] succinate 9-13 ity of XL 50 mg 24 00:00: [place] hr tablet 00 [facility] levothyroxi 2020-0 Yes [facility] ne 88 mcg 9-13 ity of tablet 00:00: [place] [facility] levothyroxi 2020-0 Yes [facility] ne 75 mcg 9-13 ity of tablet 00:00: [place] [address] [facility] JARDIANCE 2020-0 Yes [facility] 25 mg Tab 9-13 ity of 00:00: [place] 00 [facility] traZODone 2020-0 Yes [facility] 100 mg 9-13 ity of tablet 00:00: [place] 00 [facility] metoprolol 2020-0 Yes [facility] succinate 9-13 ity of XL 50 mg 24 00:00: [place] hr tablet 00 [facility] levothyroxi 2020-0 Yes [facility] ne 88 mcg 9-13 ity of tablet 00:00: [place] 00 [facility] levothyroxi 2020-0 Yes [facility] ne 75 mcg 9-13 ity of tablet 00:00: [place] 00 [facility] JARDIANCE 2020-0 Yes [facility] 25 mg Tab 9-13 ity of 00:00: [place] 00 [facility] traZODone 2020-0 Yes [facility] 100 mg 9-13 ity of tablet 00:00: [place] 00 [facility] metoprolol 2020-0 Yes [facility] succinate 9-13 ity of XL 50 mg 24 00:00: [place] hr tablet 00 [facility] levothyroxi 2020-0 Yes [facility] ne 88 mcg 9-13 ity of tablet 00:00: [place] 00 [facility] levothyroxi 2020-0 Yes [facility] ne 75 mcg 9-13 ity of tablet 00:00: [place] 00 [facility] JARDIANCE 2020-0 Yes [facility] 25 mg Tab 9-13 ity of 00:00: [place] 00 [facility] traZODone 2020-0 Yes [facility] 100 mg 9-13 ity of tablet 00:00: [place] 00 [facility] metoprolol 2020-0 Yes [facility] succinate 9-13 ity of XL 50 mg 24 00:00: [place] hr tablet 00 [facility] levothyroxi 2020-0 Yes [facility] ne 88 mcg 9-13 ity of tablet 00:00: [place] 00 [facility] levothyroxi 2020-0 Yes [facility] ne 75 mcg 9-13 ity of tablet 00:00: [place] 00 [facility] JARDIANCE 2020-0 Yes [facility] 25 mg Tab 9-13 ity of 00:00: [place] 00 [facility] traZODone 2020-0 Yes [facility] 100 mg 9-13 ity of tablet 00:00: [place] 00 [facility] metoprolol 2020-0 Yes [facility] succinate 9-13 ity of XL 50 mg 24 00:00: [place] hr tablet 00 [facility] levothyroxi 2020-0 Yes [facility] ne 88 mcg 9-13 ity of tablet 00:00: [place] [facility] levothyroxi 2020-0 Yes [facility] ne 75 mcg 9-13 ity of tablet 00:00: [place] 00 [facility] JARDIANCE 2020-0 Yes [facility] 25 mg Tab 9-13 ity of 00:00: [place] 00 [facility] traZODone 2020-0 Yes [facility] 100 mg 9-13 ity of tablet 00:00: [place] 00 [facility] metoprolol 2020-0 Yes [facility] succinate 9-13 ity of XL 50 mg 24 00:00: [place] hr tablet 00 [facility] levothyroxi 2020-0 Yes [facility] ne 88 mcg 9-13 ity of tablet 00:00: [place] 00 [facility] levothyroxi 2020-0 Yes [facility] ne 75 mcg 9-13 ity of tablet 00:00: [place] 00 [facility] JARDIANCE 2020-0 Yes [facility] 25 mg Tab 9-13 ity of 00:00: [place] 00 [facility] traZODone 2020-0 Yes [facility] 100 mg 9-13 ity of tablet 00:00: [place] 00 [facility] metoprolol 2020-0 Yes [facility] succinate 9-13 ity of XL 50 mg 24 00:00: [place] hr tablet 00 [facility] levothyroxi 2020-0 Yes [facility] ne 88 mcg 9-13 ity of tablet 00:00: [place] 00 [facility] levothyroxi 2020-0 Yes [facility] ne 75 mcg 9-13 ity of tablet 00:00: [place] 00 [facility] JARDIANCE 2020-0 Yes [facility] 25 mg Tab 9-13 ity of 00:00: [place] 00 [facility] traZODone 2020-0 Yes [facility] 100 mg 9-13 ity of tablet 00:00: [place] 00 [facility] metoprolol 2020-0 Yes [facility] succinate 9-13 ity of XL 50 mg 24 00:00: [place] hr tablet 00 [facility] levothyroxi 2020-0 Yes [facility] ne 88 mcg 9-13 ity of tablet 00:00: [place] 00 [facility] levothyroxi 2020-0 Yes [facility] ne 75 mcg 9-13 ity of tablet 00:00: [place] 00 [facility] JARDIANCE 2020-0 Yes [facility] 25 mg Tab 9-13 ity of 00:00: [place] 00 [facility] traZODone 2020-0 Yes [facility] 100 mg 9-13 ity of tablet 00:00: [place] 00 [facility] metoprolol 2020-0 Yes [facility] succinate 9-13 ity of XL 50 mg 24 00:00: [place] hr tablet 00 [facility] levothyroxi 2020-0 Yes [facility] ne 88 mcg 9-13 ity of tablet 00:00: [place] 00 [facility] levothyroxi 2020-0 Yes [facility] ne 75 mcg 9-13 ity of tablet 00:00: [place] 00 [facility] JARDIANCE 2020-0 Yes [facility] 25 mg Tab 9-13 ity of 00:00: [place] 00 [facility] traZODone 2020-0 Yes [facility] 100 mg 9-13 ity of tablet 00:00: [place] 00 [facility] metoprolol 2020-0 Yes [facility] succinate 9-13 ity of XL 50 mg 24 00:00: [place] hr tablet 00 [facility] levothyroxi 2020-0 Yes [facility] ne 88 mcg 9-13 ity of tablet 00:00: [place] 00 [facility] levothyroxi 2020-0 Yes [facility] ne 75 mcg 9-13 ity of tablet 00:00: [place] 00 [facility] JARDIANCE 2020-0 Yes [facility] 25 mg Tab 9-13 ity of 00:00: [place] 00 [facility] traZODone 2020-0 Yes [facility] 100 mg 9-13 ity of tablet 00:00: [place] 00 [facility] metoprolol 2020-0 Yes [facility] succinate 9-13 ity of XL 50 mg 24 00:00: [place] hr tablet 00 [facility] levothyroxi 2020-0 Yes [facility] ne 88 mcg 9-13 ity of tablet 00:00: [place] 00 [facility] levothyroxi 2020-0 Yes [facility] ne 75 mcg 9-13 ity of tablet 00:00: [place] 00 [facility] JARDIANCE 2020-0 Yes [facility] 25 mg Tab 9-13 ity of 00:00: [place] 00 [facility] traZODone 2020-0 Yes [facility] 100 mg 9-13 ity of tablet 00:00: [place] [address] [facility] metoprolol 2020-0 Yes [facility] succinate 9-13 ity of XL 50 mg 24 00:00: [place] hr tablet 00 [facility] levothyroxi 2020-0 Yes [facility] ne 88 mcg 9-13 ity of tablet 00:00: [place] [address] [facility] levothyroxi 2020-0 Yes [facility] ne 75 mcg 9-13 ity of tablet 00:00: [place] [address] [facility] JARDIANCE 2020-0 Yes [facility] 25 mg Tab 9-13 ity of 00:00: [place] 00 [facility] traZODone 2020-0 Yes [facility] 100 mg 9-13 ity of tablet 00:00: [place] 00 [facility] metoprolol 2020-0 Yes [facility] succinate 9-13 ity of XL 50 mg 24 00:00: [place] hr tablet 00 [facility] levothyroxi 2020-0 Yes [facility] ne 88 mcg 9-13 ity of tablet 00:00: [place] 00 [facility] levothyroxi 2020-0 Yes [facility] ne 75 mcg 9-13 ity of tablet 00:00: [place] [address] [facility] JARDIANCE 2020-0 Yes [facility] 25 mg Tab 9-13 ity of 00:00: [place] 00 [facility] traZODone 2020-0 Yes [facility] 100 mg 9-13 ity of tablet 00:00: [place] 00 [facility] metoprolol 2020-0 Yes [facility] succinate 9-13 ity of XL 50 mg 24 00:00: [place] hr tablet 00 [facility] levothyroxi 2020-0 Yes [facility] ne 88 mcg 9-13 ity of tablet 00:00: [place] 00 [facility] levothyroxi 2020-0 Yes [facility] ne 75 mcg 9-13 ity of tablet 00:00: [place] 00 [facility] JARDIANCE 2020-0 Yes [facility] 25 mg Tab 9-13 ity of 00:00: [place] 00 [facility] traZODone 2020-0 Yes [facility] 100 mg 9-13 ity of tablet 00:00: [place] 00 [facility] metoprolol 2020-0 Yes [facility] succinate 9-13 ity of XL 50 mg 24 00:00: [place] hr tablet 00 [facility] levothyroxi 2020-0 Yes [facility] ne 88 mcg 9-13 ity of tablet 00:00: [place] 00 [facility] levothyroxi 2020-0 Yes [facility] ne 75 mcg 9-13 ity of tablet 00:00: [place] 00 [facility] JARDIANCE 2020-0 Yes [facility] 25 mg Tab 9-13 ity of 00:00: [place] 00 [facility] traZODone 2020-0 Yes [facility] 100 mg 9-13 ity of tablet 00:00: [place] 00 [facility] metoprolol 2020-0 Yes [facility] succinate 9-13 ity of XL 50 mg 24 00:00: [place] hr tablet 00 [facility] levothyroxi 2020-0 Yes [facility] ne 88 mcg 9-13 ity of tablet 00:00: [place] 00 [facility] levothyroxi 2020-0 Yes [facility] ne 75 mcg 9-13 ity of tablet 00:00: [place] 00 [facility] JARDIANCE 2020-0 Yes [facility] 25 mg Tab 9-13 ity of 00:00: [place] 00 [facility] traZODone 2020-0 Yes [facility] 100 mg 9-13 ity of tablet 00:00: [place] 00 [facility] metoprolol 2020-0 Yes [facility] succinate 9-13 ity of XL 50 mg 24 00:00: [place] hr tablet 00 [facility] levothyroxi 2020-0 Yes [facility] ne 88 mcg 9-13 ity of tablet 00:00: [place] 00 [facility] levothyroxi 2020-0 Yes [facility] ne 75 mcg 9-13 ity of tablet 00:00: [place] 00 [facility] JARDIANCE 2020-0 Yes [facility] 25 mg Tab 9-13 ity of 00:00: [place] 00 [facility] traZODone 2020-0 Yes [facility] 100 mg 9-13 ity of tablet 00:00: [place] 00 [facility] metoprolol 2020-0 Yes [facility] succinate 9-13 ity of XL 50 mg 24 00:00: [place] hr tablet 00 [facility] levothyroxi 2020-0 Yes [facility] ne 88 mcg 9-13 ity of tablet 00:00: [place] 00 [facility] levothyroxi 2020-0 Yes [facility] ne 75 mcg 9-13 ity of tablet 00:00: [place] 00 [facility] JARDIANCE 2020-0 Yes [facility] 25 mg Tab 9-13 ity of 00:00: [place] 00 [facility] traZODone 2020-0 Yes [facility] 100 mg 9-13 ity of tablet 00:00: [place] 00 [facility] metoprolol 2020-0 Yes [facility] succinate 9-13 ity of XL 50 mg 24 00:00: [place] hr tablet 00 [facility] levothyroxi 2020-0 Yes [facility] ne 88 mcg 9-13 ity of tablet 00:00: [place] 00 [facility] levothyroxi 2020-0 Yes [facility] ne 75 mcg 9-13 ity of tablet 00:00: [place] [address] [facility] JARDIANCE 2020-0 Yes [facility] 25 mg Tab 9-13 ity of 00:00: [place] 00 [facility] traZODone 2020-0 Yes [facility] 100 mg 9-13 ity of tablet 00:00: [place] 00 [facility] metoprolol 2020-0 Yes [facility] succinate 9-13 ity of XL 50 mg 24 00:00: [place] hr tablet 00 [facility] levothyroxi 2020-0 Yes [facility] ne 88 mcg 9-13 ity of tablet 00:00: [place] 00 [facility] levothyroxi 2020-0 Yes [facility] ne 75 mcg 9-13 ity of tablet 00:00: [place] 00 [facility] JARDIANCE 2020-0 Yes [facility] 25 mg Tab 9-13 ity of 00:00: [place] 00 [facility] traZODone 2020-0 Yes [facility] 100 mg 9-13 ity of tablet 00:00: [place] 00 [facility] metoprolol 2020-0 Yes [facility] succinate 9-13 ity of XL 50 mg 24 00:00: [place] hr tablet 00 [facility] levothyroxi 2020-0 Yes [facility] ne 88 mcg 9-13 ity of tablet 00:00: [place] 00 [facility] levothyroxi 2020-0 Yes [facility] ne 75 mcg 9-13 ity of tablet 00:00: [place] 00 [facility] JARDIANCE 2020-0 Yes [facility] 25 mg Tab 9-13 ity of 00:00: [place] 00 [facility] traZODone 2020-0 Yes [facility] 100 mg 9-13 ity of tablet 00:00: [place] 00 [facility] metoprolol 2020-0 Yes [facility] succinate 9-13 ity of XL 50 mg 24 00:00: [place] hr tablet 00 [facility] levothyroxi 2020-0 Yes [facility] ne 88 mcg 9-13 ity of tablet 00:00: [place] 00 [facility] levothyroxi 2020-0 Yes [facility] ne 75 mcg 9-13 ity of tablet 00:00: [place] 00 [facility] JARDIANCE 2020-0 Yes [facility] 25 mg Tab 9-13 ity of 00:00: [place] 00 [facility] traZODone 2020-0 Yes [facility] 100 mg 9-13 ity of tablet 00:00: [place] 00 [facility] metoprolol 2020-0 Yes [facility] succinate 9-13 ity of XL 50 mg 24 00:00: [place] hr tablet 00 [facility] levothyroxi 2020-0 Yes [facility] ne 88 mcg 9-13 ity of tablet 00:00: [place] 00 [facility] levothyroxi 2020-0 Yes [facility] ne 75 mcg 9-13 ity of tablet 00:00: [place] 00 [facility] JARDIANCE 2020-0 Yes [facility] 25 mg Tab 9-13 ity of 00:00: [place] 00 [facility] traZODone 2020-0 Yes [facility] 100 mg 9-13 ity of tablet 00:00: [place] 00 [facility] metoprolol 2020-0 Yes [facility] succinate 9-13 ity of XL 50 mg 24 00:00: [place] hr tablet 00 [facility] levothyroxi 2020-0 Yes [facility] ne 88 mcg 9-13 ity of tablet 00:00: [place] 00 [facility] levothyroxi 2020-0 Yes [facility] ne 75 mcg 9-13 ity of tablet 00:00: [place] 00 [facility] JARDIANCE 2020-0 Yes [facility] 25 mg Tab 9-13 ity of 00:00: [place] 00 [facility] traZODone 2020-0 Yes [facility] 100 mg 9-13 ity of tablet 00:00: [place] 00 [facility] metoprolol 2020-0 Yes [facility] succinate 9-13 ity of XL 50 mg 24 00:00: [place] hr tablet 00 [facility] levothyroxi 2020-0 Yes [facility] ne 88 mcg 9-13 ity of tablet 00:00: [place] 00 [facility] levothyroxi 2020-0 Yes Univer [...] 88 mcg 9-13 ity of tablet 00:00: [place] 00 [facility] levothyroxi 2020-0 Yes [facility] ne 75 mcg 9-13 ity of tablet 00:00: [place] 00 [facility] JARDIANCE 2020-0 Yes [facility] 25 mg Tab 9-13 ity of 00:00: [place] 00 [facility] traZODone 2020-0 Yes [facility] 100 mg 9-13 ity of tablet 00:00: [place] 00 [facility] metoprolol 2020-0 Yes [facility] succinate 9-13 ity of XL 50 mg 24 00:00: [place] hr tablet 00 [facility] levothyroxi 2020-0 Yes [facility] ne 88 mcg 9-13 ity of tablet 00:00: [place] 00 [facility] levothyroxi 2020-0 Yes [facility] ne 75 mcg 9-13 ity of tablet 00:00: [place] 00 [facility] JARDIANCE 2020-0 Yes [facility] [...] MOUTH ONCE DAILY WITH Medical FOOD Branch meloxicam 2020-0 [...] 9-05 TABLET BY ity of 00:00: MOUTH 00 EVERY 12 Medical HOURS Branch NEEDED meloxicam 2020-0 Yes TAKE 1 [facility] 7.5 mg 9-05 TABLET BY ity of tablet 00:00: MOUTH ONCE 00 DAILY WITH Medical FOOD Branch ondansetron 2020-0 Yes TAKE 1 [facility] ers 4 mg tablet 9-05 TABLET BY ity of 00:00: MOUTH 00 EVERY 12 Medical HOURS Branch NEEDED [...] Take 50 mg [facility] mg tablet 9-05 10-21 by mouth ity o f 00:00: 00:00 every 8 [place] 00 :00 (eight) Medical hours as Branch needed. traMADoL 50 2019- No 50mg Take 50 mg [facility] mg tablet 04-26 by mouth ity o f 00:00: 00:00 every 8 [place] 00 :00 (eight) Medical hours as Branch needed. traMADoL 50 2019- No 50mg Take 50 mg [facility] mg [...] DAILY FOR Medical 90 DAYS Branch citalopram 0 Yes TAKE 1 [facility] 40 mg 8-04 TABLET BY ity of tablet 00:00: MOUTH ONCE [place] 00 DAILY FOR Medical 90 DAYS Branch lisinopriL 0 Yes TAKE 1 [facility] 40 mg 8-04 TABLET BY ity of tablet 00:00: MOUTH ONCE [place] 00 DAILY FOR Medical 90 DAYS Branch citalopram 0 Yes TAKE 1 [facility] 40 mg 8-04 TABLET BY ity of tablet 00:00: MOUTH ONCE [place] 00 DAILY FOR Medical 90 DAYS Branch lisinopriL Yes TAKE 1 [facility] 40 mg 8-04 TABLET BY ity of tablet 00:00: MOUTH ONCE [place] 00 DAILY FOR Medical 90 DAYS Branch citalopram 0 Yes TAKE 1 [facility] 40 mg 8-04 TABLET BY ity of tablet 00:00: MOUTH ONCE [place] 00 DAILY FOR Medical 90 DAYS Branch lisinopriL 0 Yes TAKE 1 [facility] 40 mg 8-04 TABLET BY ity of tablet 00:00: MOUTH ONCE [place] 00 DAILY FOR Medical 90 DAYS Branch citalopram 0 Yes TAKE 1 [facility] 40 mg 8-04 TABLET BY ity of tablet 00:00: MOUTH ONCE [place] 00 DAILY FOR Medical 90 DAYS Branch lisinopriL 0 Yes TAKE 1 [facility] 40 mg 8-04 TABLET BY ity of tablet 00:00: MOUTH ONCE 00 DAILY FOR Medical 90 DAYS Branch citalopram 0 Yes TAKE 1 [facility] 40 mg 8-04 TABLET BY ity of tablet 00:00: MOUTH ONCE [place] 00 DAILY FOR Medical 90 DAYS Branch lisinopriL 0 Yes TAKE 1 [facility] 40 mg 8-04 TABLET BY ity of tablet 00:00: MOUTH ONCE [place] 00 DAILY FOR Medical 90 DAYS Branch citalopram 0 Yes TAKE 1 [facility] 40 mg [...] Branch DIRECTED FOR 90 DAYS NOVOLIN N Yes INJECT 65 Uni vers NPH U-100 7-31 UNITS ity of INSULIN 100 00:00: SUBCUTANEO [place] unit/mL 00 USLY ONCE Medical injection DAILY Branch DIRECTED FOR 90 DAYS furosemide Yes TAKE 1 [facility] 20 mg 7-24 TABLET BY ity of tablet 00:00: MOUTH ONCE DAILY FOR Medical 90 DAYS Branch furosemide Yes TAKE 1 [facility] 20 mg 7-24 TABLET BY ity of tablet 00:00: MOUTH ONCE DAILY FOR Medical 90 DAYS Branch furosemide Yes TAKE 1 [facility] 20 mg 7-24 TABLET BY ity of tablet 00:00: MOUTH ONCE 00 DAILY FOR Medical 90 DAYS Branch furosemide Yes TAKE 1 [facility] 20 mg 7-24 TABLET BY ity of tablet 00:00: MOUTH ONCE 00 DAILY FOR Medical 90 DAYS Branch furosemide Yes TAKE 1 [facility] 20 mg 7-24 TABLET BY ity of tablet 00:00: MOUTH ONCE 00 DAILY FOR Medical 90 DAYS Branch furosemide Yes TAKE 1 [facility] 20 mg 7-24 TABLET BY ity of tablet 00:00: MOUTH ONCE 00 DAILY FOR Medical 90 DAYS Branch furosemide Yes TAKE 1 [facility] 20 mg 7-24 TABLET BY ity of tablet 00:00: MOUTH ONCE 00 DAILY FOR Medical 90 DAYS Branch furosemide Yes TAKE 1 [facility] 20 [...] DAILY IN [facility] [place] EVENING FOR 90 DAYS atorvastati 2020-0 Yes TAKE 1 [facility] ers n 40 mg 7-13 TABLET BY ity of tablet 00:00: MOUTH ONCE [place] 00 DAILY IN [facility] EVENING FOR 90 DAYS atorvastati 2020-0 Yes TAKE 1 [facility] ers n 40 mg 7-13 TABLET BY ity of tablet 00:00: MOUTH ONCE [place] 00 DAILY IN [facility] EVENING FOR 90 DAYS atorvastati 2020-0 Yes TAKE 1 [facility] n 40 mg 7-13 TABLET BY ity of tablet 00:00: MOUTH ONCE [place] 00 DAILY IN [facility] EVENING FOR 90 DAYS atorvastati 2020-0 Yes TAKE 1 [facility] ers n 40 mg 7-13 TABLET BY ity of tablet 00:00: MOUTH ONCE [place] 00 DAILY IN [facility] EVENING FOR 90 DAYS atorvastati 2020-0 Yes TAKE 1 [facility] n 40 mg 7-13 TABLET BY ity of tablet 00:00: MOUTH ONCE [place] 00 DAILY IN [facility] EVENING FOR 90 DAYS atorvastati 2020-0 Yes TAKE 1 [facility] n 40 mg 7-13 TABLET BY ity of tablet 00:00: MOUTH ONCE [place] 00 DAILY IN [facility] EVENING FOR 90 DAYS atorvastati 2020-0 Yes TAKE 1 [facility] n 40 mg 7-13 TABLET BY ity of tablet 00:00: MOUTH ONCE [place] 00 DAILY IN [facility] EVENING FOR 90 DAYS atorvastati 2020-0 Yes TAKE 1 [facility] n 40 mg 7-13 TABLET BY ity of tablet 00:00: MOUTH ONCE [place] 00 DAILY IN [facility] EVENING FOR 90 DAYS atorvastati 2020-0 Yes TAKE 1 [facility] n 40 mg 7-13 TABLET BY ity of tablet 00:00: MOUTH ONCE [place] 00 DAILY IN [facility] EVENING FOR 90 DAYS atorvastati 2020-0 Yes TAKE 1 [facility] n 40 mg 7-13 TABLET BY ity of tablet 00:00: MOUTH ONCE [place] 00 DAILY IN [facility] EVENING FOR 90 DAYS atorvastati 2020-0 Yes TAKE 1 [facility] ers n 40 mg 7-13 TABLET BY ity of tablet 00:00: MOUTH ONCE [place] 00 DAILY IN [facility] EVENING FOR 90 DAYS atorvastati 2020-0 Yes TAKE 1 [facility] ers n 40 mg 7-13 TABLET BY ity of tablet 00:00: MOUTH ONCE [place] 00 DAILY IN [facility] EVENING FOR 90 DAYS atorvastati 2020-0 Yes TAKE 1 [facility] n 40 mg 7-13 TABLET BY ity of tablet 00:00: MOUTH ONCE [place] 00 DAILY IN [facility] EVENING FOR 90 DAYS atorvastati 2020-0 Yes TAKE 1 [facility] n 40 mg 7-13 TABLET BY ity of tablet 00:00: MOUTH ONCE [place] 00 DAILY IN [facility] EVENING FOR 90 DAYS atorvastati 2020-0 Yes TAKE 1 [facility] n 40 mg 7-13 TABLET BY ity of tablet 00:00: MOUTH ONCE [place] 00 DAILY IN [facility] EVENING FOR 90 DAYS atorvastati 2020-0 Yes TAKE 1 [facility] n 40 mg 7-13 TABLET BY ity of tablet 00:00: MOUTH ONCE [place] 00 DAILY IN [facility] EVENING FOR 90 DAYS atorvastati 2020-0 Yes TAKE 1 [facility] ers n 40 mg 7-13 TABLET BY ity of tablet 00:00: MOUTH ONCE [place] 00 DAILY IN [facility] EVENING FOR 90 DAYS atorvastati 2020-0 Yes TAKE 1 [facility] ers n 40 mg 7-13 TABLET BY ity of tablet 00:00: MOUTH ONCE [place] 00 DAILY IN [facility] EVENING FOR 90 DAYS atorvastati 2020-0 Yes TAKE 1 [facility] n 40 mg 7-13 TABLET BY ity of tablet 00:00: MOUTH ONCE [place] 00 DAILY IN [facility] EVENING FOR 90 DAYS atorvastati 2020-0 Yes TAKE 1 [facility] n 40 mg 7-13 TABLET BY ity of tablet 00:00: MOUTH ONCE [place] 00 DAILY IN [facility] EVENING FOR 90 DAYS atorvastati 2020-0 Yes TAKE 1 [facility] ers n 40 mg 7-13 TABLET BY ity of tablet 00:00: MOUTH ONCE [place] 00 DAILY IN [facility] EVENING FOR 90 DAYS atorvastati 2020-0 Yes TAKE 1 [facility] n 40 mg 7-13 TABLET BY ity of tablet 00:00: MOUTH ONCE [place] 00 DAILY IN [facility] EVENING FOR 90 DAYS atorvastati 2020-0 Yes TAKE 1 [facility] n 40 mg 7-13 TABLET BY ity of tablet 00:00: MOUTH ONCE [place] 00 DAILY IN [facility] EVENING FOR 90 DAYS atorvastati 2020-0 Yes TAKE 1 [facility] n 40 mg 7-13 TABLET BY ity of tablet 00:00: MOUTH ONCE [place] 00 DAILY IN [facility] EVENING FOR 90 DAYS atorvastati 2020-0 Yes TAKE 1 [facility] n 40 mg 7-13 TABLET BY ity of tablet 00:00: MOUTH ONCE [place] 00 DAILY IN [facility] EVENING FOR 90 DAYS atorvastati 2020-0 Yes TAKE 1 [facility] ers n 40 mg 7-13 TABLET BY ity of tablet 00:00: MOUTH ONCE [place] 00 DAILY IN [facility] EVENING FOR 90 DAYS atorvastati 2020-0 Yes TAKE 1 [facility] n 40 mg 7-13 TABLET BY ity of tablet 00:00: MOUTH ONCE [place] 00 DAILY IN [facility] EVENING FOR 90 DAYS atorvastati 2020-0 Yes TAKE 1 [facility] n 40 mg 7-13 TABLET BY ity of tablet 00:00: MOUTH ONCE [place] 00 DAILY IN [facility] EVENING FOR 90 DAYS atorvastati 2020-0 Yes TAKE 1 [facility] n 40 mg 7-13 TABLET BY ity of tablet 00:00: MOUTH ONCE [place] 00 DAILY IN [facility] EVENING FOR 90 DAYS atorvastati 2020-0 Yes TAKE 1 [facility] n 40 mg 7-13 TABLET BY ity of tablet 00:00: MOUTH ONCE [place] 00 DAILY IN [facility] EVENING FOR 90 DAYS atorvastati 2020-0 Yes TAKE 1 [facility] n 40 mg 7-13 TABLET BY ity of tablet 00:00: MOUTH ONCE [place] 00 DAILY IN [facility] EVENING FOR 90 DAYS atorvastati 2020-0 Yes TAKE 1 [facility] n 40 mg 7-13 TABLET BY ity of tablet 00:00: MOUTH ONCE [place] 00 DAILY IN [facility] EVENING FOR 90 DAYS atorvastati 2020-0 Yes TAKE 1 [facility] n 40 mg 7-13 TABLET BY ity of tablet 00:00: MOUTH ONCE [place] 00 DAILY IN [facility] EVENING FOR 90 DAYS atorvastati 2020-0 Yes TAKE 1 [facility] n 40 mg 7-13 TABLET BY ity of tablet 00:00: MOUTH ONCE [place] 00 DAILY IN [facility] EVENING FOR 90 DAYS atorvastati 2020-0 Yes TAKE 1 [facility] n 40 mg 7-13 TABLET BY ity of tablet 00:00: MOUTH ONCE [place] 00 DAILY IN [facility] EVENING FOR 90 DAYS atorvastati 2020-0 Yes TAKE 1 [facility] n 40 mg 7-13 TABLET BY ity of tablet 00:00: MOUTH ONCE [place] 00 DAILY IN [facility] EVENING FOR 90 DAYS atorvastati 2020-0 Yes TAKE 1 [facility] n 40 mg 7-13 TABLET BY ity of tablet 00:00: MOUTH ONCE [place] 00 DAILY IN [facility] EVENING FOR 90 DAYS atorvastati 2020-0 Yes TAKE 1 [facility] n 40 mg 7-13 TABLET BY ity of tablet 00:00: MOUTH ONCE [place] 00 DAILY IN [facility] EVENING FOR 90 DAYS atorvastati 2020-0 Yes TAKE 1 [facility] n 40 mg 7-13 TABLET BY ity of tablet 00:00: MOUTH ONCE [place] 00 DAILY IN [facility] EVENING FOR 90 DAYS atorvastati 2020-0 Yes TAKE 1 [facility] n 40 mg 7-13 TABLET BY ity of tablet 00:00: MOUTH ONCE [place] 00 DAILY IN [facility] EVENING FOR 90 DAYS atorvastati 2020-0 Yes TAKE 1 [facility] n 40 mg 7-13 TABLET BY ity of tablet 00:00: MOUTH ONCE [place] 00 DAILY IN [facility] EVENING FOR 90 DAYS atorvastati 2020-0 Yes TAKE 1 [facility] n 40 mg 7-13 TABLET BY ity of tablet 00:00: MOUTH ONCE [place] 00 DAILY IN [facility] EVENING FOR 90 DAYS atorvastati 2020-0 Yes TAKE 1 [facility] n 40 mg 7-13 TABLET BY ity of tablet 00:00: MOUTH ONCE [place] 00 DAILY IN [facility] [place] EVEN[facility] FOR 90 DAYS atorvastati 2020-0 Yes TAKE 1 [facility] 40 mg 7-13 TABLET BY ity of tablet 00:00: MOUTH ONCE [place] 00 DAILY IN [facility] [place] EVENING FOR 90 DAYS atorvastati 2020-0 Yes TAKE 1 [facility] 40 mg 7-13 TABLET BY ity of tablet 00:00: MOUTH ONCE [place] 00 DAILY IN [facility] [place] EVENING FOR 90 DAYS atorvastati 2020-0 Yes TAKE 1 [facility] 40 mg 7-13 TABLET BY ity of tablet 00:00: MOUTH ONCE [place] 00 DAILY IN [facility] EVENING FOR 90 DAYS atorvastati 2020-0 Yes TAKE 1 [facility] 40 mg 7-13 TABLET BY ity of tablet 00:00: MOUTH ONCE [place] 00 DAILY IN [facility] EVENING FOR 90 DAYS atorvastati 2020-0 Yes TAKE 1 [facility] 40 mg 7-13 TABLET BY ity of tablet 00:00: MOUTH ONCE [place] 00 DAILY IN [facility] EVENING FOR 90 DAYS atorvastati 2020-0 Yes TAKE 1 [facility] 40 mg 7-13 TABLET BY ity of tablet 00:00: MOUTH ONCE [place] 00 DAILY IN [facility] [place] EVENING FOR 90 DAYS atorvastati 2020-0 Yes TAKE 1 [facility] 40 mg 7-13 TABLET BY it[facility] of tablet 00:00: MOUTH ONCE [place] 00 DAILY IN [facility] EVEN[facility] FOR 90 DAYS atorvastati 2020-0 Yes TAKE 1 [facility] 40 mg 7-13 TABLET BY ity of tablet 00:00: MOUTH ONCE [place] 00 DAILY IN [facility] EVENING FOR 90 DAYS atorvastati 2020-0 Yes TAKE 1 [facility] 40 mg 7-13 TABLET BY ity of tablet 00:00: MOUTH ONCE [place] 00 DAILY IN [facility] [place] EVENING FOR 90 DAYS atorvastati 2020-0 Yes TAKE 1 [facility] 40 mg 7-13 TABLET BY ity of tablet 00:00: MOUTH ONCE [place] 00 DAILY IN [facility] EVENING FOR 90 DAYS atorvastati 2020-0 Yes TAKE 1 [facility] 40 mg 7-13 TABLET BY it[facility] of tablet 00:00: MOUTH ONCE [place] 00 DAILY IN [facility] EVENING FOR 90 DAYS atorvastati 2020-0 Yes TAKE 1 [facility] 40 mg 7-13 TABLET BY ity of tablet 00:00: MOUTH ONCE [place] 00 DAILY IN [facility] EVEN[facility] FOR 90 DAYS atorvastati 2020-0 Yes TAKE 1 [facility] 40 mg 7-13 TABLET BY ity of tablet 00:00: MOUTH ONCE [place] 00 DAILY IN [facility] EVENING FOR 90 DAYS atorvastati 2020-0 Yes TAKE 1 [facility] 40 mg 7-13 TABLET BY [facility] of tablet 00:00: MOUTH ONCE [place] 00 DAILY IN [facility] EVEN[facility] FOR 90 DAYS atorvastati 2020-0 Yes TAKE 1 [facility] 40 mg 7-13 TABLET BY ity of tablet 00:00: MOUTH ONCE [place] 00 DAILY IN [facility] [place] EVENING FOR 90 DAYS atorvastati 2020-0 Yes TAKE 1 [facility] 40 mg 7-13 TABLET BY ity of tablet 00:00: MOUTH ONCE [place] 00 DAILY IN [facility] [place] EVENING FOR 90 DAYS atorvastati 2020-0 Yes TAKE 1 [facility] 40 mg 7-13 TABLET BY ity of tablet 00:00: MOUTH ONCE [place] 00 DAILY IN [facility] [place] EVENING FOR 90 DAYS atorvastati 2020-0 Yes TAKE 1 [facility] 40 mg 7-13 TABLET BY ity of tablet 00:00: MOUTH ONCE [place] 00 DAILY IN [facility] [place] EVENING FOR 90 DAYS atorvastati 2020-0 Yes TAKE 1 [facility] 40 mg 7-13 TABLET BY ity of tablet 00:00: MOUTH ONCE [place] 00 DAILY IN [facility] [place] EVENING FOR 90 DAYS atorvastati 2020-0 Yes TAKE 1 [facility] 40 mg 7-13 TABLET BY ity of tablet 00:00: MOUTH ONCE [place] 00 DAILY IN [facility] [place] EVENING FOR 90 DAYS atorvastati 2020-0 Yes TAKE 1 [facility] 40 mg 7-13 TABLET BY ity of tablet 00:00: MOUTH ONCE [place] 00 DAILY IN [facility] [place] EVENING FOR 90 DAYS atorvastati 2020-0 Yes TAKE 1 [facility] 40 mg 7-13 TABLET BY ity of tablet 00:00: MOUTH ONCE [place] 00 DAILY IN [facility] [place] EVENING FOR 90 DAYS atorvastati 2020-0 Yes TAKE 1 [facility] 40 mg 7-13 TABLET BY ity of tablet 00:00: MOUTH ONCE [place] 00 DAILY IN [facility] [place] EVENING FOR 90 DAYS atorvastati 2020-0 Yes TAKE 1 [facility] 40 mg 7-13 TABLET BY ity of tablet 00:00: MOUTH ONCE [place] 00 DAILY IN [facility] [place] EVENING FOR 90 DAYS atorvastati 2020-0 Yes TAKE 1 [facility] 40 mg 7-13 TABLET BY ity of tablet 00:00: MOUTH ONCE [place] 00 DAILY IN [facility] [place] EVENING FOR 90 DAYS atorvastati 2020-0 Yes TAKE 1 [facility] 40 mg 7-13 TABLET BY ity of tablet 00:00: MOUTH ONCE [place] 00 DAILY IN [facility] [place] EVENING FOR 90 DAYS atorvastati 2020-0 Yes TAKE 1 [facility] 40 mg 7-13 TABLET BY ity of tablet 00:00: MOUTH ONCE [place] 00 DAILY IN [facility] [place] EVEN[facility] FOR 90 DAYS atorvastati 2020-0 Yes TAKE 1 [facility] 40 mg 7-13 TABLET BY ity of tablet 00:00: MOUTH ONCE 00 DAILY [facility] 90 DAYS atorvastati 2020-0 Yes TAKE 1 [facility] 40 mg 7-13 TABLET BY [facility]y of tablet 00:00: MOUTH ONCE DAILY IN [facility] FOR 90 DAYS Zofran 4 MG [...] Branch 90 DAYS Belsomra 10 Belsomra 10 2018-08 No 1{table QD B[facility] MG MG 0-17 t_at_be 10 MG 00:00: dtime_a 00 s_neede d} Belsomra 10 Belsomra 10 2018-08 No 1{table QD [place] MG MG 0-17 t_at_be 10 MG 00:00: dtime_a 00 s_neede d} metoprolol Yes Essential 50mg QD Take 1 [facility] succinate 04-28 hypertensio tablet by [facility] (TOPROL XL) 00:00: n mouth 50 mg 00 daily. extended release tablet metoprolol Yes Essential 50mg QD Take 1 [facility] succinate - hypertensio tablet by [facility] (TOPROL XL) 00:00: n mouth 50 mg 00 daily. extended release tablet ibuprofen Yes Musculoskel 800mg Take 1 [facility] (MOTRIN) 8-14 etal pain tablet by [facility] 800 mg 00:00: mouth tablet 00 every 8 hours as needed for Pain. ibuprofen Yes Musculoskel 800mg Take 1 [facility] (MOTRIN) 8-14 etal pain tablet by [facility] 800 mg 00:00: mouth tablet 00 every 8 hours as needed for Pain. methocarbam Yes Spasm of 750mg Take 1 [facility] ol 7-26 muscle tablet by Health (ROBAXIN) 00:00: mouth 3 750 mg 00 times tablet daily. methocarbam Yes Spasm of 750mg Take 1 [facility] ol 7-26 muscle tablet by [facility] (ROBAXIN) 00:00: mouth 3 750 mg 00 times tablet daily. lisinopril Yes Chronic 20mg QD Take 1 [place] rris (PRINIVIL) 02-27 combined tablet by [facility] 20 mg 00:00: systolic mouth tablet 00 and daily. diastolic congestive heart failure traZODone Yes Insomnia, 50mg Take 1 H [facility] (DESYREL) 02-27 unspecified tablet by [facility] 50 mg 00:00: type mouth at tablet 00 bedtime nightly. blood Yes Type 2 Check Cody glucose 02-27 diabetes blood Health test strips 00:00: mellitus glucose 3 00 with other times specified daily. complicatio n lisinopril Yes Chronic 20mg QD Take 1 [place] [facility] (PRINIVIL) 02-27 combined tablet by [facility] 20 mg 00:00: systolic mouth tablet 00 and daily. diastolic congestive heart failure traZODone Yes Insomnia, 50mg Take 1 H [facility]is (DESYREL) 02-27 unspecified tablet by [facility] 50 mg 00:00: type mouth at tablet 00 bedtime nightly. blood Yes Type 2 Check Cody glucose 02-27 diabetes blood Health test strips 00:00: mellitus glucose 3 00 with other times specified daily. complicatio n insulin NPH Yes Uncontrolle 70U Q.5D Inject 70 Cody 100 unit/mL 5-21 d type 2 Units Hea lth injection 00:00: diabetes under the 00 mellitus skin 2 with both times eyes daily affected by (before proliferati meals). ve retinopathy and macular edema, with long-term current use of insulin ketoconazol Yes Seborrheic Apply to Cody brett (NIZORAL) -21 dermatitis, scalp, Health 2 % shampoo 00:00: unspecified lather and 00 leave in for 15 minutes, then rinse off, use twice a week. triamcinolo Yes Psoriasifor Q.5D Apply to [facility] 5-21 m affected Health (KENALOG) 00:00: dermatitis area 2 0.025 % 00 times topical daily. cream insulin NPH Yes Uncontrolle 70U Q.5D Inject 70 Cody 100 unit/mL -21 d type 2 Units Hea lth injection 00:00: diabetes under the 00 mellitus skin 2 with both times eyes daily affected by (before proliferati meals). ve retinopathy and macular edema, with long-term current use of insulin ketoconazol Yes Seborrheic Apply to [facility]rett (NIZORAL) 21 dermatitis, scalp, Health 2 % shampoo 00:00: unspecified lather and 00 leave in for 15 minutes, then rinse off, use twice a week. triamcinolo Yes Psoriasifor Q.5D Apply to [facility] 5-21 m affected Health (KENALOG) 00:00: dermatitis area 2 0.025 % 00 times topical daily. cream prednisoLON Yes Right eye 1[drp] Instill 1 Cody E acetate -17 affected by Drop in Health (PRED 00:00: [...] macula, associated with type 2 diabetes mellitus prednisoLON 2017-0 Yes Right eye 1[drp] Instill 1 [facility] E acetate 4-17 affected by Drop in Health (PRED 00:00: proliferati right eye FORTE) 1 % 00 ve diabetic 4 times ophthalmic retinopathy daily. 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 900-1,400 mg CpDR FERROUS Yes Take by [place] SULFATE OR 4-16 mouth. Health 13:10: 01 metFORMIN Yes Uncontrolle 850mg Q.5D Take 1 [facility] (GLUCOPHAGE 2-05 d type 2 tablet by [facility] ) 850 mg 00:00: diabetes mouth 2 tablet 00 mellitus times with both daily eyes (with affected by meals). proliferati ve retinopathy and macular edema, with long-term current use of insulin levothyroxi Yes Hypothyroid 50ug QD Take 1 [facility] ne 2-05 ism, tablet by [facility] (SYNTHROID) 00:00: unspecified mouth 50 mcg 00 type daily Take tablet together with levothyrox ine 200mcg. atorvastati Yes Hyperlipide 40mg Take 1 Cody n (LIPITOR) 2-05 [place], tablet by [facility] lth 40 mg 00:00: unspecified mouth at tablet 00 hyperlipide bedtime [place] type nightly. furosemide Yes Essential 20mg QD Take 1 [facility] (LASIX) 20 2-05 hypertensio tablet by [facility] mg tablet 00:00: n mouth 00 daily. levothyroxi Yes Hypothyroid 200ug QD Take 1 [facility] ne 2-05 ism, tablet by [facility] (SYNTHROID) 00:00: unspecified mouth 200 mcg [...] insulin Novolin R if skipping a meal... metFORMIN Yes Uncontrolle 850mg Q.5D Take 1 [facility] (GLUCOPHAGE 2-05 d type 2 tablet by [facility] ) 850 mg 00:00: diabetes mouth 2 tablet 00 mellitus times with both daily eyes (with affected by meals). proliferati ve retinopathy and macular edema, with long-term current use of insulin levothyroxi Yes Hypothyroid 50ug QD Take 1 [place] ne 2-05 ism, tablet by Health (SYNTHROID) 00:00: unspecified mouth 50 mcg 00 type daily Take tablet together with levothyrox ine 200mcg. atorvastati Yes Hyperlipide 40mg Take 1 Cody n (LIPITOR) 2-05 [place], tablet by [facility] lth 40 mg 00:00: unspecified mouth at tablet 00 hyperlipide bedtime [place] type nightly. furosemide Yes Essential 20mg QD Take 1 [facility] (LASIX) 20 2-05 hypertensio tablet by [facility] mg tablet 00:00: n mouth 00 daily. levothyroxi Yes Hypothyroid 200ug QD Take 1 [facility] ne 2-05 ism, tablet by Health (SYNTHROID) 00:00: unspecified mouth 200 mcg 00 [...] Novolin R if skipping a meal... citalopram 2017- Yes Depressed 40mg QD Take 2 Cody (CELEXA) 20 1-09 tablets by He alth mg tablet 00:00: mouth 00 daily for depression . citalopram Yes Depressed 40mg QD Take 2 [facility] (CELEXA) 20 1-09 tablets by He alth mg tablet 00:00: mouth 00 daily for depression . clotrimazol 2016-08 Yes Onychomycos Q.5D Apply to [place] e 2-19 is affected Health (LOTRIMIN) 00:00: area 2 1 % topical 00 times cream daily. clotrimazol 2016-08 Yes Onychomycos Q.5D Apply to [place] e 2-19 is affected Health (LOTRIMIN) 00:00: area 2 1 % topical 00 times cream daily. INSULIN 2016-08 Yes Type 2 Q.5D Use to Cody SYRINGE 1mL 1-14 diabetes inject He alth 30GX5/16" 00:00: mellitus medication syringe-nee 00 with other 2 times dle specified daily. Use complicatio a new n, with syringe long-term each time. current use of insulin INSULIN 2016-08 Yes Type 2 Q.5D Use to [facility] SYRINGE 1mL 1-14 diabetes inject He alth [...] day. calcipotrie Yes Psoriasifor Q.5D Apply to [facility] 7-12 m affected Health (DOVONEX) 00:00: dermatitis area 2 0.005 % 00 times topical daily. cream ammonium Yes Dry skin Apply to H [facility]is lactate 7-12 dermatitis affected He alth (AL12) 12 % 00:00: area as lotion 00 needed for dry skin 3 times a day. calcipotrie Yes Psoriasifor Q.5D Apply to [facility] 7-12 m affected Health (DOVONEX) 00:00: dermatitis area 2 0.005 % 00 times topical daily. cream INSULIN Yes Type 2 Use to [facility] SYRINGE 1mL 5-06 diabetes inject He alth 30GX5/16" 00:00: mellitus medication (MONOJECT 00 with other 3 times ULTRACOMFOR specified daily. Use T INSULIN complicatio a new SYR 1ML n syringe 30GX5/16") each time. syringe-nee dle INSULIN Yes Type 2 Use to [facility] SYRINGE 1mL 5-06 diabetes inject He alth 30GX5/16" 00:00: mellitus medication (MONOJECT 00 with other 3 times ULTRACOMFOR specified daily. Use T INSULIN complicatio a new SYR 1ML n syringe 30GX5/16") each time. syringe-nee dle blood 2014-08 Yes Type 2 Use as Cody glucose 0-14 diabetes directed.. He alth meter 00:00: mellitus 00 with complicatio n blood 2014-08 Yes Type 2 Use as [facility] glucose 0-14 diabetes directed.. He alth meter 00:00: mellitus 00 with complicatio n blood 2013-08 Yes Diabetes Q.5D Use twice Josiah ris glucose 0-08 mellitus daily. Health (PRECISION 00:00: type II, XTRA TEST 00 uncontrolle STRIPS) d test strips blood 2013-08 Yes Diabetes Q.5D Use twice [facility] ris glucose 0-08 mellitus daily. Health (PRECISION 00:00: type II, XTRA TEST 00 uncontrolle STRIPS) d test strips aspirin Yes CAD 81mg QD Chew 1 Tab Luis is (ASPIRIN) 3-20 (coronary by mouth H ealth 81 mg 00:00: artery daily. chewable 00 disease) tablet aspirin Yes CAD 81mg QD Chew 1 Tab [facility] is (ASPIRIN) 3-20 (coronary by mouth H ealth 81 mg 00:00: artery daily. chewable 00 disease) tablet blood 2009-08 Yes Diabetes Use as Cody glucose 2-28 mellitus directed. Hea lth meter 00:00: type II, 00 uncontrolle d LANCETS 2009-08 Yes Diabetes Use as Luis is 2-28 mellitus Directed Health 00:00: type II, 00 uncontrolle d blood 2009-08 Yes Diabetes Use as Cody glucose 2-28 mellitus directed. Hea lth meter 00:00: type II, 00 uncontrolle d LANCETS 2009-08 Yes Diabetes Use as Luis is 2-28 mellitus Directed Health 00:00: type II, 00 uncontrolle d Furosemide Furosemide Yes Roseanne 1 tablet [facility] BD Veo BD Veo No BD Veo [...] 31G X ML ML 01/04" 1 ML Jardiance Jardiance No 1{table QD [...] 31G X ML ML 01/04" 1 ML Jardiance Jardiance No 1{table QD [...] MG HCl 10 MG traZODone traZODone No 1{table QD traZODone HCl 100 MG HCl 100 MG t_at_be HCl 100 MG dtime_a s_neede d} Jardiance Jardiance No 1{table QD Jardiance 25 MG 25 MG t} 25 MG Novolin R Novolin R No QD Novolin R 100 UNIT/ML 100 UNIT/ML 100 UNIT/ML Liothyronin Liothyronin No 1{table QD Liothyroni e Sodium 25 e Sodium 25 t_on_an ne Sodium MCG MCG _empty_ 25 MCG stomach } busPIRone busPIRone No 1{table BID busPIRone HCl 5 MG HCl 5 MG t} HCl 5 MG Euthyrox 88 Euthyrox 88 No Euthyrox MCG MCG 88 MCG amLODIPine amLODIPine No 1{table QD amLODIPine Besylate 10 Besylate 10 t} Besylate MG MG 10 MG Carvedilol Carvedilol No 1{table BID Carvedilol 12.5 MG 12.5 MG t_with_ 12.5 MG food} Calcium Calcium No Calcium Vitamin C Vitamin C No Vitamin C Vitamin D3 Vitamin D3 No Vitamin D3 Lisinopril Lisinopril No Lisinopril 40 MG 40 MG 40 MG BD Veo BD Veo No BD Veo Insulin Insulin Insulin Syringe U/F Syringe U/F Syringe 31G X 31G X U/F 31G X " 1 ML " 1 ML " 1 ML NovoLIN N NovoLIN N No NovoLIN N 100 UNIT/ML 100 UNIT/ML 100 UNIT/ML Memantine Memantine No 1{table QD Memantine HCl 10 MG HCl 10 MG t} HCl 10 MG Insulin Insulin No Insulin Syringe 31G Syringe 31G Syringe X 01/04" 1 X 01/04" 1 31G X ML ML 01/04" 1 ML Gabapentin Gabapentin No 1{capsu Gabapentin 300 MG 300 MG le} 300 MG Citalopram Citalopram No Citalopram Hydrobromid Hydrobromid Hydrobromi e 40 MG e 40 MG de 40 MG Atorvastati Atorvastati No QD Atorvastat n Calcium n Calcium in Calcium 40 MG 40 MG 40 MG Donepezil Donepezil No Donepezil HCl 10 MG HCl 10 MG HCl 10 MG BD Insulin BD Insulin No BD Insulin Syringe U/F Syringe U/F Syringe 31G X 01/04" 31G X 01/04" U/F 31G X 1 ML 1 ML 01/04" 1 ML Furosemide Furosemide No Furosemide 20 MG 20 MG 20 MG Novolin R Novolin R No QD Novolin R 100 UNIT/ML 100 UNIT/ML 100 UNIT/ML Jardiance Jardiance No 1{table QD Jardiance 25 MG 25 MG t} 25 MG Furosemide Furosemide No Furosemide 20 MG 20 MG 20 MG Liothyronin Liothyronin No 1{table QD Liothyroni e Sodium 25 e Sodium 25 t_on_an ne Sodium MCG MCG _empty_ 25 MCG stomach } amLODIPine amLODIPine No 1{table QD amLODIPine Besylate 10 Besylate 10 t} Besylate MG MG 10 MG Citalopram Citalopram No Citalopram Hydrobromid Hydrobromid Hydrobromi e 40 MG e 40 MG de 40 MG traZODone traZODone No 1{table QD traZODone HCl 100 MG HCl 100 MG t_at_be HCl 100 MG dtime_a s_neede d} Vitamin D3 Vitamin D3 No Vitamin D3 busPIRone busPIRone No 1{table BID busPIRone HCl 5 MG HCl 5 MG t} HCl 5 MG Lisinopril Lisinopril No Lisinopril 40 MG 40 MG 40 MG Vitamin C Vitamin C No Vitamin C Donepezil Donepezil No Donepezil HCl 10 MG HCl 10 MG HCl 10 MG NovoLIN N NovoLIN N No NovoLIN N 100 UNIT/ML 100 UNIT/ML 100 UNIT/ML Euthyrox 88 Euthyrox 88 No Euthyrox MCG MCG 88 MCG Carvedilol Carvedilol No 1{table BID Carvedilol 12.5 MG 12.5 MG t_with_ 12.5 MG food} Atorvastati Atorvastati No QD Atorvastat n Calcium n Calcium in Calcium 40 MG 40 MG 40 MG BD Insulin BD Insulin No BD Insulin Syringe U/F Syringe U/F Syringe 31G X /16" 31G X 16" U/F 31G X 1 ML 1 ML 01/04" 1 ML BD Veo BD Veo No BD Veo Insulin Insulin Insulin Syringe U/F Syringe U/F Syringe 31G X 31G X U/F 31G X 64" 1 ML " 1 ML " 1 ML Calcium Calcium No Calcium Gabapentin Gabapentin No 1{capsu Gabapentin 300 MG 300 MG le} 300 MG Memantine Memantine No 1{table QD Memantine HCl 10 MG HCl 10 MG t} HCl 10 MG Insulin Insulin No Insulin Syringe 31G Syringe 31G Syringe X 01/04" 1 X 01/04" 1 31G X ML ML 01/04" 1 ML amLODIPine amLODIPine No 1{table QD amLODIPine Besylate 10 Besylate 10 t} Besylate MG MG 10 MG Jardiance Jardiance No 1{table QD Jardiance 25 MG 25 MG t} 25 MG traZODone traZODone No 1{table QD traZODone HCl 100 MG HCl 100 MG t_at_be HCl 100 MG dtime_a s_neede d} Liothyronin Liothyronin No 1{table QD Liothyroni e Sodium 25 e Sodium 25 t_on_an ne Sodium MCG MCG _empty_ 25 MCG stomach } Calcium Calcium No Calcium Euthyrox 88 Euthyrox 88 No Euthyrox MCG MCG 88 MCG busPIRone busPIRone No 1{table BID busPIRone HCl 5 MG HCl 5 MG t} HCl 5 MG Carvedilol Carvedilol No 1{table BID Carvedilol 12.5 MG 12.5 MG t_with_ 12.5 MG food} Vitamin C Vitamin C No Vitamin C Vitamin D3 Vitamin D3 No Vitamin D3 Donepezil Donepezil No Donepezil HCl 10 MG HCl 10 MG HCl 10 MG BD Veo BD Veo No BD Veo Insulin Insulin Insulin Syringe U/F Syringe U/F Syringe 31G X 31G X U/F 31G X " 1 ML " 1 ML " 1 ML NovoLIN N NovoLIN N No NovoLIN N 100 UNIT/ML 100 UNIT/ML 100 UNIT/ML Memantine Memantine No 1{table QD Memantine HCl 10 MG HCl 10 MG t} HCl 10 MG Furosemide Furosemide No Furosemide 20 MG 20 MG 20 MG Citalopram Citalopram No Citalopram Hydrobromid Hydrobromid Hydrobromi e 40 MG e 40 MG de 40 MG Insulin Insulin No Insulin Syringe 31G Syringe 31G Syringe X 01/04" 1 X 01/04" 1 31G X ML ML 01/04" 1 ML Lisinopril Lisinopril No 1{table QD Lisinopril 40 MG 40 MG t} 40 MG Atorvastati Atorvastati No QD Atorvastat n Calcium n Calcium in Calcium 40 MG 40 MG 40 MG Gabapentin Gabapentin No 1{capsu Gabapentin 300 MG 300 MG le} 300 MG BD Insulin BD Insulin No BD Insulin Syringe U/F Syringe U/F Syringe 31G X 01/04" 31G X 01/04" U/F 31G X 1 ML 1 ML 01/04" 1 ML Novolin R Novolin R No QD Novolin R 100 UNIT/ML 100 UNIT/ML 100 UNIT/ML Novolin [...] [facility]AD 2021-06-01 [facility] - 12:43:00 [facility] FluAD FluAD 2021-06-01 [facility] - 12:43:00 [facility] FluAD FluAD 2021-06-01 Completed [facility] - 12:43:00 [facility] FluAD FluAD 2021-06-01 Completed [facility] - 12:43:00 [facility] FluAD FluAD 2021-06-01 Completed [facility] - 12:43:00 [facility] FluAD FluAD 2021-06-01 Completed [facility] - 12:43:00 [facility] FluAD FluAD 2021-06-01 Completed [facility] - 12:43:00 [facility] FluAD FluAD 2021-06-01 Completed [facility] - 12:43:00 [facility] FluAD FluAD 2021-06-01 Completed [facility] - 12:43:00 [facility] FluAD FluAD 2021-06-01 Completed [facility] - 12:43:00 [facility] FluAD FluAD 2021-06-01 Completed [facility] - 12:43:00 [facility] FluAD FluAD 2021-06-01 Completed [facility] - 12:43:00 [facility] FluAD FluAD 2021-06-01 Completed [facility] - 12:43:00 [facility] FluAD FluAD 2021-06-01 Completed [facility] - 12:43:00 [facility] FluAD FluAD 2021-06-01 Completed [facility] - 12:43:00 [facility] SARS-COV-2 COVID-19 2021-01-01 Completed Un[facility] of PFIZER VACCINE 00:00:00 [facility] SARS-COV-2 COVID-19 2021-01-01 Completed Unive rsity of PFIZER VACCINE 00:00:00 [facility] SARS-COV-2 COVID-19 2021-01-01 Completed Unive rsity of PFIZER VACCINE 00:00:00 [facility] SARS-COV-2 COVID-19 2021-01-01 Completed Unive rsity of PFIZER VACCINE 00:00:00 [facility] SARS-COV-2 COVID-19 2021-01-01 Completed Unive rsity of PFIZER VACCINE 00:00:00 [facility] SARS-COV-2 COVID-19 2021-01-01 Completed Unive rsity of PFIZER VACCINE 00:00:00 [facility] SARS-COV-2 COVID-19 2021-01-01 Completed [facility]ive rsity of PFIZER VACCINE 00:00:00 [facility] SARS-COV-2 COVID-19 2021-01-01 Completed Unive rs[facility] of PFIZER VACCINE 00:00:00 [facility] SARS-COV-2 COVID-19 2021-01-01 Completed Unive rs[facility] of PFIZER VACCINE 00:00:00 [facility] SARS-COV-2 COVID-19 2021-01-01 Completed [facility]ive rs[facility] of PFIZER VACCINE 00:00:00 [facility] SARS-COV-2 COVID-19 2021-01-01 Completed Unive rsity of PFIZER VACCINE 00:00:00 [facility] SARS-COV-2 COVID-19 2021-01-01 Completed [facility]ive rs[facility] of PFIZER VACCINE 00:00:00 [facility] SARS-COV-2 COVID-19 2021-01-01 Completed [facility]ive [facility] of PFIZER VACCINE 00:00:00 [facility] SARS-COV-2 COVID-19 2021-01-01 Completed Un[facility] of PFIZER VACCINE 00:00:00 [place] [facility] SARS-COV-2 COVID-19 2021-01-01 Completed Unive [facility] of PFIZER VACCINE 00:00:00 [facility] SARS-COV-2 COVID-19 2020-12-11 Completed Unive rsity of PFIZER VACCINE 00:00:00 [facility] SARS-COV-2 COVID-19 2020-12-11 Completed Unive rs[facility] of PFIZER VACCINE 00:00:00 [facility] SARS-COV-2 COVID-19 2020-12-11 Completed Unive rs[facility] of PFIZER VACCINE 00:00:00 [facility] SARS-COV-2 COVID-19 2020-12-11 Completed Unive rs[facility] of PFIZER VACCINE 00:00:00 [facility] SARS-COV-2 COVID-19 2020-12-11 Completed Unive rsity of PFIZER VACCINE 00:00:00 [facility] SARS-COV-2 COVID-19 2020-12-11 Completed Unive [facility] of PFIZER VACCINE 00:00:00 [facility] SARS-COV-2 COVID-19 2020-12-11 Completed Unive rs[facility] of PFIZER VACCINE 00:00:00 [facility] SARS-COV-2 COVID-19 2020-12-11 Completed Unive rs[facility] of PFIZER VACCINE 00:00:00 [facility] SARS-COV-2 COVID-19 2020-12-11 Completed Unive rsity of PFIZER VACCINE 00:00:00 [facility] SARS-COV-2 COVID-19 2020-12-11 Completed Unive rsity of PFIZER VACCINE 00:00:00 [facility] SARS-COV-2 COVID-19 2020-12-11 Completed Unive rsity of PFIZER VACCINE 00:00:00 [facility] SARS-COV-2 COVID-19 2020-12-11 Completed [facility]ive [facility] of PFIZER VACCINE 00:00:00 [facility] SARS-COV-2 COVID-19 2020-12-11 Completed [facility] of PFIZER VACCINE 00:00:00 [facility] SARS-COV-2 COVID-19 2020-12-11 Completed Unive [facility] of PFIZER VACCINE 00:00:00 [facility] SARS-COV-2 COVID-19 2020-12-11 Completed [facility]ZER VACCINE 00:00:00 [facility] SARS-COV-2 COVID-19 2020-12-11 Completed [facility] PFIZER VACCINE 00:00:00 [facility] SARS-COV-2 COVID-19 2020-12-11 Completed [facility] PFIZER VACCINE 00:00:00 [facility] SARS-COV-2 COVID-19 2020-12-11 Completed [facility] PFIZER VACCINE 00:00:00 [facility] SARS-COV-2 COVID-19 2020-12-11 Completed [facility] PFIZER VACCINE 00:00:00 [facility] SARS-COV-2 COVID-19 2020-12-11 Completed [facility] PFIZER VACCINE 00:00:00 [facility] SARS-COV-2 COVID-19 2020-12-11 Completed [facility] PFIZER VACCINE 00:00:00 [facility] SARS-COV-2 COVID-19 2020-12-11 Completed [facility] PFIZER VACCINE 00:00:00 [facility] Pneumovax (PPSV23) Pneumovax (PPSV23) 2020-07-21 [facility] 12:16:00 [facility] Pneumovax (PPSV23) Pneumovax (PPSV23) 2020-07-21 Completed [facility] - 12:16:00 [facility] Pneumovax (PPSV23) Pneumovax (PPSV23) 2020-07-21 Completed [facility] - 12:16:00 [facility] Pneumovax (PPSV23) Pneumovax (PPSV23) 2020-07-21 Completed [facility] - 12:16:00 [facility] Pneumovax (PPSV23) Pneumovax (PPSV23) 2020-07-21 Completed [facility] - 12:16:00 [facility] Pneumovax (PPSV23) Pneumovax (PPSV23) 2020-07-21 Completed [facility] - 12:16:00 [facility] Pneumovax (PPSV23) Pneumovax (PPSV23) 2020-07-21 Completed [facility] - 12:16:00 [facility] Pneumovax (PPSV23) Pneumovax (PPSV23) 2020-07-21 Completed [facility] - 12:16:00 [facility] Pneumovax (PPSV23) Pneumovax (PPSV23) 2020-07-21 Completed [facility] - 12:16:00 [facility] Pneumovax (PPSV23) Pneumovax (PPSV23) 2020-07-21 Completed [facility] - 12:16:00 [facility] Pneumovax (PPSV23) Pneumovax (PPSV23) 2020-07-21 Completed [facility] - 12:16:00 [facility] Pneumovax (PPSV23) Pneumovax (PPSV23) 2020-07-21 Completed [facility] - 12:16:00 [facility] Pneumovax (PPSV23) Pneumovax (PPSV23) 2020-07-21 Completed [facility] - 12:16:00 [facility] Pneumovax (PPSV23) Pneumovax (PPSV23) 2020-07-21 Completed [facility] - 12:16:00 [facility] Pneumovax (PPSV23) Pneumovax (PPSV23) 2020-07-21 Completed [facility] - 12:16:00 [facility] FLUZONE HIGH DOSE FLUZONE HIGH DOSE 2020-07-21 Completed [facility] - OVER 65 OVER 65 12:14:00 [facility] FLUZONE HIGH DOSE FLUZONE HIGH DOSE 2020-07-21 Completed [facility] - OVER 65 OVER 65 12:14:00 [facility] FLUZONE HIGH DOSE FLUZONE HIGH DOSE 2020-07-21 Completed [facility] - OVER 65 OVER 65 12:14:00 [facility] FLUZONE HIGH DOSE FLUZONE HIGH DOSE 2020-07-21 Completed [facility] - OVER 65 OVER 65 12:14:00 [facility] FLUZONE HIGH DOSE FLUZONE HIGH DOSE 2020-07-21 Completed [facility] - OVER 65 OVER 65 12:14:00 [facility] FLUZONE HIGH DOSE FLUZONE HIGH DOSE 2020-07-21 Completed [facility] - OVER 65 OVER 65 12:14:00 [facility] FLUZONE HIGH DOSE FLUZONE HIGH DOSE 2020-07-21 Completed [facility] - OVER 65 OVER 65 12:14:00 [facility] FLUZONE HIGH DOSE FLUZONE HIGH DOSE 2020-07-21 Completed [facility] - OVER 65 OVER 65 12:14:00 [facility] FLUZONE HIGH DOSE FLUZONE HIGH DOSE 2020-07-21 Completed [facility] - OVER 65 OVER 65 12:14:00 [facility] FLUZONE HIGH DOSE FLUZONE HIGH DOSE 2020-07-21 Completed [facility] - OVER 65 OVER 65 12:14:00 [facility] FLUZONE HIGH DOSE FLUZONE HIGH DOSE 2020-07-21 Completed [facility] - OVER 65 OVER 65 12:14:00 [facility] FLUZONE HIGH DOSE FLUZONE HIGH DOSE 2020-07-21 Completed [facility] - OVER 65 OVER 65 12:14:00 [facility] FLUZONE HIGH DOSE FLUZONE HIGH DOSE 2020-07-21 Completed [facility] - OVER 65 OVER 65 12:14:00 [facility] FLUZONE HIGH DOSE FLUZONE HIGH DOSE 2020-07-21 Completed [facility] - OVER 65 OVER 65 12:14:00 [facility] FLUZONE HIGH DOSE FLUZONE HIGH DOSE 2020-07-21 Completed [facility] - OVER 65 OVER 65 12:14:00 [facility] FLUZONE HIGH DOSE FLUZONE HIGH DOSE 2019-07-27 Completed [facility] - OVER 65 OVER 65 16:41:00 [facility] FLUZONE HIGH DOSE FLUZONE HIGH DOSE 2019-07-27 Completed [facility] - OVER 65 OVER 65 16:41:00 [facility] FLUZONE HIGH DOSE FLUZONE HIGH DOSE 2019-07-27 Completed [facility] - OVER 65 OVER 65 16:41:00 [facility] FLUZONE HIGH DOSE FLUZONE HIGH DOSE 2019-07-27 Completed [facility] - OVER 65 OVER 65 16:41:00 [facility] FLUZONE HIGH DOSE FLUZONE HIGH DOSE 2019-07-27 Completed [facility] - OVER 65 OVER 65 16:41:00 [facility] FLUZONE HIGH DOSE FLUZONE HIGH DOSE 2019-07-27 Completed [facility] - OVER 65 OVER 65 16:41:00 [facility] FLUZONE HIGH DOSE FLUZONE HIGH DOSE 2019-07-27 Completed [facility] - OVER 65 OVER 65 16:41:00 [facility] FLUZONE HIGH DOSE FLUZONE HIGH DOSE 2019-07-27 Completed [facility] - OVER 65 OVER 65 16:41:00 [facility] FLUZONE HIGH DOSE FLUZONE HIGH DOSE 2019-07-27 Completed [facility] - OVER 65 OVER 65 16:41:00 [facility] FLUZONE HIGH DOSE FLUZONE HIGH DOSE 2019-07-27 Completed [facility] - OVER 65 OVER 65 16:41:00 [facility] FLUZONE HIGH DOSE FLUZONE HIGH DOSE 2019-07-27 Completed [facility] - OVER 65 OVER 65 16:41:00 [facility] FLUZONE HIGH DOSE FLUZONE HIGH DOSE 2019-07-27 Completed [facility] - OVER 65 OVER 65 16:41:00 [facility] FLUZONE HIGH DOSE FLUZONE HIGH DOSE 2019-07-27 Completed [facility] - OVER 65 OVER 65 16:41:00 [facility] FLUZONE HIGH DOSE FLUZONE HIGH DOSE 2019-07-27 Completed [facility] - OVER 65 OVER 65 16:41:00 [facility] FLUZONE HIGH DOSE FLUZONE HIGH DOSE 2019-07-27 Completed [facility] - OVER 65 OVER 65 16:41:00 [facility] FLUZONE HIGH DOSE FLUZONE HIGH DOSE 2019-07-27 Completed [facility] - OVER 65 OVER 65 00:00:00 [facility] Influenza Vaccine, 2017-07-05 Completed [facility] Seasonal, Injectable 00:00:00 Influenza Vaccine, 2017-07-05 Completed [facility] Seasonal, Injectable 00:00:00 Tdap Tetanus, 2016-10-04 Completed [facility] diphtheria, 00:00:00 acellular pertussis Vaccine Herpes Zoster 2016-10-04 Completed [facility] Vaccine In Clinic 00:00:00 Tdap Tetanus, 2016-10-04 Completed [facility] diphtheria, 00:00:00 acellular pertussis Vaccine Herpes Zoster 2016-10-04 Completed [facility] Vaccine In Clinic 00:00:00 Influenza Vaccine 2016-07-29 Completed [facility] 00:00:00 Influenza Vaccine 2016-07-29 Completed [facility] 00:00:00 Influenza Vaccine 2015-06-04 Completed [facility] 00:00:00 Influenza Vaccine 2015-06-04 Completed [facility] 00:00:00 Influenza Vaccine 2014-06-17 Completed [facility] 00:00:00 Influenza Vaccine 2014-06-17 Completed [facility] 00:00:00 Pneumoccoccal 2013-05-08 Completed [facility] 00:00:00 Pneumoccoccal 2013-05-08 Completed [facility] 00:00:00 Influenza Vaccine 2012-06-01 Completed [facility] 00:00:00 Influenza Vaccine 2012-06-01 Completed [facility] 00:00:00 Influenza Vaccine 2011-06-30 Completed [facility] 00:00:00 Influenza Vaccine 2011-06-30 Completed [facility] 00:00:00 Influenza Vaccine 2010-06-16 Completed [facility] 00:00:00 Influenza Vaccine 2010-06-16 Completed [facility] 00:00:00 Influenza A (H1N1) 2009-09-04 Completed [facility] Vac Injection 00:00:00 Influenza A (H1N1) 2009-09-04 Completed [facility] Vac Injection 00:00:00 Influenza Vaccine 2009-06-17 Completed [facility] 00:00:00 Influenza Vaccine 2009-06-17 Completed [facility] 00:00:00 Pneumoccoccal 2006-12-12 Completed [facility] 00:00:00 Pneumoccoccal 2006-12-12 Completed [facility] 00:00:00 Influenza Vaccine 2006-07-27 Completed [facility] 00:00:00 Influenza Vaccine 2006-07-27 Completed [facility] 00:00:00 TT Tetanus Toxoid 2005-08-22 Completed [facility] Vaccine 00:00:00 TT Tetanus Toxoid 2005-08-22 Completed [facility] Vaccine 00:00:00 Vital Signs Vital Name Observation Time Observation Value Comments Source height 2022-07-30 10:40:00 62 [in_i] [facility] weight 2022-07-30 10:40:00 198.0 [lb_av] [facility] temperature 2022-07-30 10:40:00 97.3 [degF] [facility] bmi 2022-07-30 10:40:00 36.21 kg/m2 [facility] oximetry 2022-07-30 10:40:00 97 % [facility] respiratory rate 2022-07-30 10:40:00 18 /min Comm on [facility] blood pressure 2022-07-30 10:40:00 165 mm[Hg] Common [facility] - systolic [facility] blood pressure 2022-07-30 10:40:00 77 mm[Hg] Common [facility] - diastolic [facility] height 2022-05-10 14:00:00 62 [in_i] [facility] weight 2022-05-10 14:00:00 189.0 [lb_av] Common [facility] temperature 2022-05-10 14:00:00 97.5 [degF] Common [facility] bmi 2022-05-10 14:00:00 34.56 kg/m2 [facility] oximetry 2022-05-10 14:00:00 96 % [facility] respiratory rate 2022-05-10 14:00:00 18 /min Comm on [facility] blood pressure 2022-05-10 14:00:00 130 mm[Hg] Common [facility] - systolic [facility] blood pressure 2022-05-10 14:00:00 64 mm[Hg] [facility] - diastolic [facility] height 2022-04-06 09:00:00 62 [in_i] Common [facility] weight 2022-04-06 09:00:00 178.0 [lb_av] [facility] temperature 2022-04-06 09:00:00 97.6 [degF] Common [facility] bmi 2022-04-06 09:00:00 32.55 kg/m2 Common [facility] oximetry 2022-04-06 09:00:00 97 % Common [facility] respiratory rate 2022-04-06 09:00:00 18 /min Comm on [facility] blood pressure 2022-04-06 09:00:00 152 mm[Hg] [facility] - systolic [facility] blood pressure 2022-04-06 09:00:00 76 mm[Hg] [facility] - diastolic [facility] height 2021-11-26 11:00:00 62 [in_i] Common [facility] weight 2021-11-26 11:00:00 178 [lb_av] Common [facility] temperature 2021-11-26 11:00:00 97.9 [degF] [facility] bmi 2021-11-26 11:00:00 32.55 kg/m2 [facility] oximetry 2021-11-26 11:00:00 96 % Common [facility] respiratory rate 2021-11-26 11:00:00 18 /min Comm on [facility] blood pressure 2021-11-26 11:00:00 160 mm[Hg] Common [facility] - systolic [facility] blood pressure 2021-11-26 11:00:00 58 mm[Hg] [facility] - diastolic [facility] height 2021-11-26 11:20:00 62 [in_i] Common [facility] weight 2021-11-26 11:20:00 178 [lb_av] Common [facility] temperature 2021-11-26 11:20:00 97.9 [degF] Common [facility] bmi 2021-11-26 11:20:00 32.55 kg/m2 [facility] oximetry 2021-11-26 11:20:00 96 % [facility] respiratory rate 2021-11-26 11:20:00 18 /min Comm on [facility] blood pressure 2021-11-26 11:20:00 160 mm[Hg] [facility] - systolic [facility] blood pressure 2021-11-26 11:20:00 58 mm[Hg] [facility] - diastolic [facility] height 2021-08-28 09:40:00 62 [in_i] [facility] weight 2021-08-28 09:40:00 178 [lb_av] Common [facility] temperature 2021-08-28 09:40:00 96.7 [degF] Common [facility] bmi 2021-08-28 09:40:00 32.55 kg/m2 Common [facility] oximetry 2021-08-28 09:40:00 98 % Common [facility] respiratory rate 2021-08-28 09:40:00 22 /min Comm on [facility] blood pressure 2021-08-28 09:40:00 130 mm[Hg] Common [facility] - systolic [facility] blood pressure 2021-08-28 09:40:00 76 mm[Hg] [facility] - diastolic [facility] height 2021-06-01 11:20:00 62 [in_i] Common [facility] weight 2021-06-01 11:20:00 183.6 [lb_av] Common [facility] temperature 2021-06-01 11:20:00 96.5 [degF] Common [facility] bmi 2021-06-01 11:20:00 33.58 kg/m2 [facility] oximetry 2021-06-01 11:20:00 98 % Common [facility] respiratory rate 2021-06-01 11:20:00 16 /min Comm on [facility] blood pressure 2021-06-01 11:20:00 120 mm[Hg] [facility] - systolic [facility] blood pressure 2021-06-01 11:20:00 64 mm[Hg] [facility] - diastolic [facility] Body temperature 2021-04-01 16:17:00 35.83 [facility] Body weight 2021-04-01 16:17:[address] [facility] [facility] BMI 2021-04-01 16:17:00 37.68 kg/m2 [facility] Body temperature 2020-12-24 16:11:00 35.94 [facility] Body height 2020-12-24 16:11:00 157.5 cm [facility] Body weight 2020-12-24 16:11:00 93.441 kg [facility] BMI 2020-12-24 16:11:00 37.68 kg/m2 [facility] Body temperature 2020-10-22 16:14:00 35.89 [facility] Body height 2020-10-22 16:14:00 157.5 cm [facility] Body weight 2020-10-22 16:14:00 93.441 kg [facility] BMI 2020-10-22 16:14:00 37.68 kg/m2 [facility] Body temperature 2020-08-27 19:05:00 35.94 [facility] Body height 2020-08-27 19:05:00 157.5 cm [facility] Body weight 2020-08-27 19:05:00 93.441 kg [facility] BMI 2020-08-27 19:05:00 37.67 kg/m2 [facility] Body temperature 2020-08-27 19:05:00 35.94 [facility] Body height 2020-08-27 19:05:00 157.5 cm [facility] Body weight 2020-08-27 19:05:00 93.441 kg [facility] BMI 2020-08-27 19:05:00 37.67 kg/m2 [facility] Body temperature 2020-07-30 19:10:00 35.94 [facility] Body weight 2020-07-30 19:10:00 93.486 kg [facility] BMI 2020-07-30 19:10:00 37.70 kg/m2 [facility] Body temperature 2020-06-25 21:10:00 35.94 [facility] Body weight 2020-06-25 21:10:00 93.486 kg [facility] [place] BMI 2020-06-25 21:10:00 37.70 kg/m2 [facility] Body temperature 2020-06-11 15:58:00 35.61 [facility] Body weight 2020-06-11 15:58:00 97.659 kg [facility] BMI 2020-06-11 15:58:00 39.38 kg/m2 [facility] Body temperature 2020-06-02 20:28:00 36.67 [facility] Respiratory rate 2020-05-15 23:45:00 18 /min [facility] Systolic blood 2020-05-15 23:15:00 174 mm[Hg] [facility] of pressure [facility] Diastolic blood 2020-05-15 23:15:00 70 mm[Hg] [facility]ive [facility]ity of pressure [facility] Heart rate 2020-05-15 23:15:00 75 /min [facility] Oxygen saturation in 2020-05-15 23:15:00 96 /min [facility] Arterial blood by [facility] Pulse oximetry Branch Body temperature 2020-05-15 22:39:00 35.61 [facility] Body height 2020-05-15 14:38:00 157.5 cm [facility] Body weight 2020-05-15 14:38:00 97.7 kg [facility] BMI 2020-05-15 14:38:00 39.40 kg/m2 [facility] Body temperature 2020-05-05 20:19:00 36.72 [facility] Systolic blood 2020-04-30 19:52:00 125 mm[Hg] [facility] of pressure [facility] Diastolic blood 2020-04-30 19:52:00 74 mm[Hg] [facility] of pressure [facility] Heart rate 2020-04-30 19:52:00 74 /min [facility] Respiratory rate 2020-04-30 19:52:00 18 /min [facility] Body height 2020-04-30 19:52:00 157.5 cm [facility] Body weight 2020-04-30 19:52:00 108.863 kg [facility] [place] BMI 2020-04-30 19:52:00 43.90 kg/m2 [facility] [place] Procedures Procedure Date / Time Performing Clinician Source Performed HOME HEALTH - OTHER 2021-06-22 05:01:[address] [facility] HOME HEALTH - OTHER 2021-06-01 05:01:00 Price Marte [facility] Name [facility] [place] HOME HEALTH [id number] 2021-04-29 05:01:00 Doctor Coburn [facility] XR WRIST 3+ VW LEFT 2020-12-24 16:18:40 Gasper Armenta [facility] CONSULT ADULT 2020-12-24 00:00:00 Dave Davies [facility] OCCUPATIONAL THERAPY [facility] XR WRIST 3+ VW LEFT 2020-10-22 16:19:54 Samuel Armendariz [facility] XR WRIST 3+ VW LEFT 2020-08-27 19:17:56 Martínez Henson [facility] XR WRIST 3+ VW LEFT 2020-07-30 19:21:41 Martínez Henson [facility] [place] MEDICATION CORRESPONDENCE 2020-06-25 06:01:00 Doctor Coburn [facility] [place] POCT GLUCOSE (AUTOMATED) 2020-05-15 22:57:00 Gasper Armenta [facility] FL TIME OR 2020-05-15 22:39:10 Gasper Armenta [facility] (NON-REPORTABLE) [facility] [place] POCT GLUCOSE (AUTOMATED) 2020-05-15 15:11:00 Gasper Armenta [facility] CONSENT/REFUSAL FOR 2020-05-15 14:28:21 Doctor Coburn [facility] DIAGNOSIS AND TREATMENT [facility] [place] ASSIGNMENT OF BENEFITS 2020-05-15 14:27:53 Doctor Coburn [facility] Name Medical Branch NOTICE OF PRIVACY 2020-05-13 16:38:06 Doctor Coburn [facility] PRACTICES [facility] XR WRIST 3+ VW LEFT 2020-05-05 20:08:00 Gasper Armenta [facility] XR WRIST <3 VW LEFT 2020-04-30 19:49:11 Marlene Mcdonald [facility] Plan of Care Planned Activity Planned Date Details Comments Source Future Scheduled Test 2019-02-09 Breast Cancer Scrn [facility] 00:00:00 (Yearly) [code = Breast Cancer Scrn (Yearly)] Future Scheduled Test 2019-02-09 Breast Cancer Scrn [facility] 00:00:00 (Yearly) [code = Breast Cancer Scrn (Yearly)] Future Scheduled Test 2019 Imm Pneumococcal 65+ (1 [facility] 00:00:00 - PCV) [code = Imm Pneumococcal 65+ (1 - PCV)] Future Scheduled Test 2019 Imm Pneumococcal 65+ (1 [facility] 00:00:00 - PCV) [code = Imm Pneumococcal 65+ (1 - PCV)] Future Scheduled Test 2018-09-26 CORONARY ARTERY DISEASE [facility] 00:00:00 AGE 18 AND UP [code = CORONARY ARTERY DISEASE AGE 18 AND UP] Future Scheduled Test 2018-09-26 CORONARY ARTERY DISEASE [facility] 00:00:00 AGE 18 AND UP [code = CORONARY ARTERY DISEASE AGE 18 AND UP] Future Scheduled Test 1954 COVID-19 Vaccine (#1) [facility] 00:00:00 [code = COVID-19 Vaccine (#1)] Future Scheduled Test 1954 COVID-19 Vaccine (#1) [facility] 00:00:00 [code = COVID-19 Vaccine (#1)] Future Scheduled Test 1954 Fluoride Varnish [code [facility] 00:00:00 = Fluoride Varnish] Encounters Start End Encounter Admission Attending Care Care Encounter Source Date/Time Date/Time Type Type Clinicians Facility Department ID 2022-11-17 Outpatient Rajwinder, [facility] [id number] Common 14:08:01 Gretchen [id number] [facility] 2022-09-20 [facility] [id number] 15:36:01 Gretchen [id number] [facility] 2022-07-28 Outpatient Jeanie Dill [facility] [id number] 2 Common 08:07:00 [id number] [facility] 2022-05-06 Outpatient Dill, Na [facility] [id number] 2 Common 09:00:01 [facility] 2022-04-07 Outpatient Dill, Na [facility] [id number] 2 Common 10:47:00 [facility] 2022-04-06 Outpatient Dill, Na [facility] [id number] 2 Common 09:00:01 [facility] 2022-04-02 Outpatient Dill, Na [facility] [id number] 2 Common 09:55:01 [facility] 2022-02-23 Outpatient Dill, Na [facility] [id number] 2 Common 09:58:00 [facility] 2021-09-16 Outpatient Dill, Na [facility] [id number] 2 Common 14:32:18 [facility] 2021-09-16 Outpatient Dill, Na [facility] [id number] 2 Common 14:32:01 [facility] 2021-09-16 Outpatient Dill, Na [facility] [id number] 2 Common 14:31:05 [facility] 2021-09-16 Outpatient Dill, Na [facility] [id number] 2 Common 13:59:30 [id number] [facility] 2021-09-16 Outpatient Dill, Na [facility] [id number] 2 Common 13:58:26 [id number] [facility] 2021-09-16 Outpatient Dill, Na [facility]LML[facility] ST[facility] [id number] 2 Common 13:24:04 [id number] [facility] 2021-09-16 Outpatient Dill, Na [facility] [id number] 2 Common 13:23:43 [id number] [facility] 2021-09-16 Outpatient Dill, Na [facility] [id number] 2 Common 13:22:49 [id number] [facility] 2021-09-16 Outpatient Dill, Na [facility] [id number] 2 Common 13:14:41 [id number] [facility] 2021-09-16 Outpatient Dill, Na [facility] [id number] 2 Common 12:45:31 [id number] [facility] 2021-09-16 Outpatient Dill, Na [facility] [id number] 2 Common 12:44:52 [id number] [facility] 2021-09-16 Outpatient Dill, Na [facility] [id number] 2 Common 12:26:28 [id number] [facility] 2021-09-16 Outpatient Dill, Na [facility] [id number] 2 Common 12:25:14 [id number] [facility] 2021-09-16 Outpatient Dill, Na [facility] [id number] 2 Common 12:15:44 [id number] [facility] 2021-09-16 Outpatient [facility] [id number] Common 12:15:17 [id number] [facility] 2021-09-16 Outpatient Ramsey, Kin [facility] [id number] 02 Common 12:12:14 [id number] [facility] 2021-09-16 Outpatient Ramsey, Kin [facility] [id number] 02 Common 12:08:33 [id number] [facility] [facility] 2021-09-16 Outpatient Millender, STLMLC STLMLC [id number] Common 12:07:57 Roseanne [id number] [facility] 2021-09-16 Outpatient Millender, STLMLC STLMLC [id number] Common 11:54:11 Roseanne [id number] [facility] 2021-09-16 Outpatient Millender, STLMLC STLMLC [id number] Common 11:48:53 Roseanne [id number] [facility] 2021-09-16 Outpatient Millender, STLMLC STLMLC [id number] Common 11:25:37 Roseanne [id number] [facility] 2021-09-16 Outpatient Millender, STLMLC STLMLC [id number] Common 11:12:40 Roseanne [id number] [facility] 2021-06-19 Outpatient FAILLIZCE, RIMB [facility] [id number] Univers 17:40:46 GASPER keating [facility] 2022-09-20 2022-09-20 (TEL) STLMLC STLMLC [id number] Co mmon 00:00:00 00:00:00 [facility] 2022-09-01 2022-09-01 (TEL) STLMLC STLMLC [id number] Co mmon 00:00:00 00:00:00 [facility] 2022-07-30 2022-07-30 OFFICE STLMLC STLMLC [id number] Co mmon 00:00:00 00:00:00 VISIT [facility] PT - CHI LEVEL 4 [facility] 2022-05-10 2022-05-10 OFFICE STLMLC STLMLC [id number] Co mmon 00:00:00 00:00:00 VISIT EST Spir it PT LEVEL 3 - [facility] 2022-05-05 2022-05-05 (TEL) STLMLC STLMLC [id number] Co mmon 00:00:00 00:00:00 [facility] 2022-04-06 2022-04-06 OFFICE STLMLC STLMLC [id number] Co mmon 00:00:00 00:00:00 VISIT [facility] PT - CHI LEVEL 4 [facility] 2022-01-14 2022-01-14 (TEL) STLMLC STLMLC [id number] Co mmon 00:00:00 00:00:00 [facility] 2021-11-27 2021-11-27 (TEL) STLMLC STLMLC [id number] Co mmon 00:00:00 00:00:00 [facility] 2021-11-26 2021-11-26 SUB ANNUAL STLMLC STLMLC [id number] Common 00:00:00 00:00:00 MCR [facility] VISIT [facility] 2021-11-26 2021-11-26 OFFICE STLMLC [facility] [id number] Co mmon 00:00:00 00:00:00 VISIT EST Spir it PT LEVEL 3 - [facility] 2021-08-28 2021-08-28 [facility] [id number] Co mmon 00:00:00 00:00:00 VISIT Spirit ESTAB PT - CHI LEVEL 4 [facility] 2021-06-22 2021-06-22 Orders Doctor GASPER 1.2.840.114 [id number] Univers 00:00:00 00:00:00 Only Unassigned, LOUISA 350.1.13.10 ity of [place] [facility] 4.2.7.2.686 Tez as [phone] [address] 2021-06-01 2021-06-01 [facility] [id number] Co mmon 00:00:00 00:00:00 VISIT Spirit ESTAB PT - CHI LEVEL 4 [facility] 2021-06-01 2021-06-01 Orders Doctor GASPER 1.2.840.114 [id number] Univers 00:00:00 00:00:00 Only Unassigned, LOUISA 350.1.13.10 ity of [place] [facility] 4.2.7.2.686 Tez as [phone] [address] 2021-05-26 2021-05-26 (TEL) [facility] [id number] Co mmon 00:00:00 00:00:00 Spirit [facility] 2021-04-29 2021-04-29 Orders Doctor GASPER 1.2.840.114 [id number] Univers 00:00:00 00:00:00 Only Unassigned, LOUISA 350.1.13.10 ity of [place] [facility] 4.2.7.2.686 Tez as [phone] [facility] [address] [place] 2021-04-24 2021-04-24 Telephone Kathi RIKYLEIGH 1.2.840.114 [id number] Univers 00:00:00 00:00:00 Gasper GALLEGOS 350.1.13.10 it[place] [phone] [place] juaniwa VICTORY [address] [place] [address] 2021-04-14 2021-04-14 Patient Clovis [facility] 1.2.840.114 [id number] Univers 00:00:00 00:00:00 Outreach Cally SPECIALTY 350.1.13.10 it[place] [phone] Va zachery [facility] 2021-04-01 2021-04-01 [facility] 1.2.571.936 [id number] Univers 10:10:32 12:11:09 Visit Gasper SPECIALTY 350.1.13.10 ity of CARE 4.2.7.2.686 [facility] CENTER AT [phone] Va zachery OCONNOR [address] [place] [address] 2021-04-01 2021-04-01 Outpatient R KATHI [facility] [id number] Univers 11:00:00 11:00:[address] [facility] 2021-03-13 2021-03-13 Outpatient STLMLC STLMLC [id number] Common 00:00:00 00:00:00 [facility] 2021-02-27 2021-02-27 Outpatient STLMLC STLMLC [id number] Common 00:00:00 00:00:00 [facility] 2021-01-13 2021-01-13 Outpatient Nathan GRAFF [facility] [id number] Univers 15:15:00 15:15:[address] [facility] 2021-01-01 2021-01-01 Ancillary Anand Hughes [facility] 1.2. 840.114 [id number] Univers 15:14:20 15:59:20 Visit Gabi [facility].10 [facility] 4.2.7.2.686 [facility] [phone] Va zachery [facility] 2021-01-01 2021-01-01 Outpatient Nathan PALMER [facility] [id number] Univers 14:50:00 14:50:[address] [facility] 2020-12-31 2020-12-31 Outpatient Nathan SINGLETON [facility] [id number] Univers 10:30:00 10:30:00 EDA ity of [facility] 2020-12-24 2020-12-[address] [facility] 1.2.840.114 [id number] Univers 11:14:00 23:59:00 Encounter Gasper SPECIALTY 350.1.13.10 ity of CARE 4.2.7.2.686 [facility] CENTER AT [phone] Va juaniverona OCONNOR [address] [place] 2020-12-24 2020-12-24 Ancillary Therapy-Walkchristiano, Efu-Fp-Hmcjl [facility] B 1.2.840.114 [id number] Univers 12:31:32 13:51:28 Visit Filemon Reyes 350.1.13.10 ity of [place] 4.2.7.2.686 [facility] [phone] [address] ([facility]) 2020-12-24 2020-12-24 Outpatient Nathan REYES [facility] [id number] Univers 13:15:00 13:15:00 [facility] 2020-12-24 2020-12-[address] [facility] 1.2.379.416 [id number] Univers 11:07:42 12:05:44 Visit Gasper GALLEGOS 350.1.13.10 ity of CARE 4.2.7.2.686 [facility] CENTER AT [phone] Va juaniverona OCONNOR [facility] 2020-12-24 2020-12-24 Outpatient Nathan ARMENTA [facility] [id number] Univers 11:00:00 11:00:00 GASPER ity of [facility] 2020-12-23 2020-12-23 Ancillary Anand Hughes [facility] 1.2. 840.114 [id number] Univers 11:21:38 13:36:07 Visit Gabi Graff 350.1.13.10 ity of [place] 4.2.7.2.686 [facility] [phone] Va zachery [address] 2020-12-23 2020-12-23 Outpatient Nathan GRAFF [facility] [id number] Univers 11:45:00 11:45:00 GABI itrona [facility] 2020-12-11 2020-12-11 Ancillary Anand Hughes [facility] 1.2. 840.114 [id number] Univers 11:25:45 12:10:45 Visit Gabi Graff 350.1.13.10 [place] of [place] [phone] Va dical nal [address] [place] [address] 2020-12-11 2020-12-11 Outpatient [facility] [id number] Univers 11:45:00 11:45:00 ity [facility] 2020-12-11 2020-12-11 Outpatient R ARELI [facility] [id number] Univers 11:20:00 11:20:00 EDA itrona [facility] 2020-12-04 2020-12-04 Ancillary Anand Hughes [facility] 1.2. 840.114 [id number] Univers 10:57:34 11:55:34 Visit Gabi Graff 350.1.13.10 ity [facility] [place].2.7.2.[place] [phone] Va dical nal [address] [place] [address] 2020-11-17 2020-11-17 Outpatient STLMLC STLMLC [id number] Common 00:00:00 00:00:00 [facility] 2020-11-13 2020-11-13 Ancillary Anand Hughes [facility] 1.2. 840.114 [id number] Univers 10:51:29 11:36:29 Visit Gabi Graff 350.1.13.10 it[place] of [place].2.[place] [phone] Va dical nal [address] [place] [address] 2020-11-13 2020-11-13 Outpatient R DAJUAN [facility] [id number] Univers 11:00:00 11:00:00 GABI itrona [facility] 2020-11-06 2020-11-06 Ancillary Anand Hughes [facility] 1.2. 840.114 [id number] Univers 10:51:06 12:01:50 Visit Dajuan Gabi Donato Coates 350.1.13.10 it[place] of [place].2.[place] [phone] Va dical nal [address] [facility] 2020-11-06 2020-11-06 Out[facility] [id number] Univers 11:00:00 11:00:00 GABI keating [facility] 2020-10-31 2020-10-31 Outpatient STLMLC STLMLC [id number] Common 00:00:00 00:00:00 [facility] 2020-10-30 2020-10-30 Ancillary Anand Hughes [facility] 1.2. 840.114 [id number] Univers 11:13:01 13:12:15 Visit Dajuan Gabi Coates 350.1.13.10 it[place] of [place].2.[place] [phone] Va dicverona nal [address] [facility] 2020-10-30 2020-10-30 Outpatient [facility] [id number] Univers 11:15:00 11:15:00 [facility] 2020-10-27 2020-10-27 Patient Jovan [facility] 1.2.840.114 [id number] Univers 00:00:00 00:00:00 Outreach Terry PRIMARY 350.1.13.10 i ty of [place] [facility] 4.2.7.2.[place] [phone] Va dicverona [address] [place] 2020-10-22 2020-10-22 [facility] 1.2.840.114 [id number] Univers 10:13:46 23:59:00 Encounter Gasper GALLEGOS 350.1.13.10 it[place] of [place] AT [phone] Va dical [facility]CT[facility] 2020-10-22 2020-10-22 Outpatient [facility] [id number] Univers 13:30:00 13:30:00 GASPER keating [facility] 2020-10-22 2020-10-22 [facility] 1.2.864.594 [id number] Univers 10:08:42 10:18:42 Visit Gasper GALLEGOS 350.1.13.10 ity of [facility] 4.2.7.2.[place] AT [phone] Va dical VICTORY [facility] 2020-10-22 2020-10-22 Abstract Kala [facility] 1.2.840.114 [id number] Univers 00:00:00 00:00:00 [facility] 350.1.13.10 it y of [facility] 4.2.7.2.686 [place] [phone] [address] 2020-10-21 2020-10-21 Ancillary Anand Hughes [facility] 1.2. 840.114 [id number] Univers 09:50:21 10:54:10 Visit Gabi Graff 350.1.13.10 it[place] of [place]2.7.2.[place] [phone] Va dical nal [address] [facility] 2020-10-21 2020-10-21 Outpatient Nathan GRAFF [facility] [id number] Univers 10:00:00 10:00:[address] [facility] 2020-10-08 2020-10-08 [facility] [id number] Univers 11:00:00 11:00:[address] [facility] 2020-10-01 2020-10-01 Outpatient R KATHI [facility] [id number] Univers 14:00:00 14:00:[address] [facility] 2020-10-01 2020-10-01 Outpatient Nathan DAVIS [facility] [id number] Univers 11:00:00 11:00:[address] [facility] 2020-09-25 2020-09-25 Outpatient Nathan GRAFF [facility] [id number] Univers 10:00:00 10:00:[address] [facility] 2020-09-18 2020-09-18 Ancillary Saul [facility] 1.2.509.895 [id number] 10:09:55 11:20:34 Visit Anand Coates 350.1.13.10 [place] 4.2.7.2.686 Professio [phone] [address] 2020-09-18 2020-09-18 Ancillary Anand Hughes [facility] 1.2. 840.114 [id number] [facility] 10:09:55 11:20:34 Visit Gabi Graff 350.1.13.10 it[place] of [place].2.[place] [phone] [address] 2020-09-18 2020-09-18 Outpatient STLMLC STLMLC [id number] Common 00:00:00 00:00:00 [facility] 2020-09-17 2020-09-17 Outpatient Nathan [facility] [id number] Univers 10:30:00 10:30:00 [facility] 2020-09-10 2020-09-10 Outpatient Nathan [facility] [id number] Univers 13:00:00 13:00:00 [facility] 2020-09-09 2020-09-09 [facility]illary [facility] 1.2.567.110 [id number] 10:25:00 11:28:35 Visit Anand Coates 350.1.13.10 Jose Manuel [place] 4.2.7.2.686 Professio [phone] [address] 2020-09-09 2020-09-09 Ancillary Anand Hughes [facility] 1.2. 840.114 [id number] [facility] 10:25:00 11:28:35 Visit Gabi Graff 350.1.13.10 ity of [place]2.7.2.[place] [phone] Va dic[address] 2020-09-04 2020-09-04 Ancillary Saul [facility] 1.2.448.519 [id number] 11:03:12 12:12:29 Visit Anand Coates 350.1.13.10 K [place] 4.2.7.2.686 Professio [phone] nal [address] [place] [address] 2020-09-04 2020-09-04 Ancillary Anand Hughes [facility] 1.2. 840.114 [id number] Univers 11:03:12 12:12:29 Visit Gabi Graff 350.1.13.10 it[place] of [place].2.[place] [phone] Va dical [address] 2020-09-04 2020-09-04 Outpatient [facility] [id number] Univers 11:15:00 11:15:00 [facility] 2020-08-27 2020-08-27 [facility] 1.2.840.114 [id number] 13:07:15 23:59:00 Encounter Gasper SPECIALTY 350.1.13.10 CARE 4.2.7.2.686 CENTER AT [phone] [address] 2020-08-27 2020-08-27 [facility] 1.2.840.114 [id number] Univers 13:07:15 23:59:00 Encounter Gasper SPECIALTY 350.1.13.10 it[place] AT [phone] Va juaniverona [address] 2020-08-27 2020-08-27 Outpatient R WILMAN [facility] [id number] Univers 14:00:00 14:00:00 [facility] 2020-08-27 2020-08-27 Office [facility] 1.2.840.114 [id number] 12:42:33 13:42:16 Visit Abena SPECIALTY 350.1.13.10 CARE 4.2.7.2.686 CENTER AT [phone] ANASTASIA [address] [place] [address] 2020-08-27 2020-08-27 Office [facility] 1.2.840.114 [id number] Univers 12:42:33 13:42:16 Visit Abena SPECIALTY 350.1.13.10 it[place] of [place] AT [phone] Va juaniverona CARRIONY [facility] 2020-08-27 2020-08-27 Abstract Natividad [facility] 1.2.840.114 [id number] Univers 00:00:00 00:00:00 Martínez GALLEGOS 350.1.13.10 ity of [place] 4[place]2.[place].2.[place] AT [phone] Va zachery OCONNOR [facility] 2020-08-26 2020-08-26 Ancillary Anand Hughes [facility] 1.2. 840.114 [id number] Univers 09:05:09 09:50:09 Visit Gasper Armenta 350.1.13.10 ity of [place].2.7.2.[place] [phone] Va dicwa nal [address] [facility] 2020-08-26 2020-08-26 Outpatient R [facility] [id number] Univers 09:30:00 09:30:[address] [facility] 2020-08-12 2020-08-12 Outpatient R KATHI [facility] [id number] Univers 14:00:00 14:00:[address] [facility] 2020-08-07 2020-08-07 Outpatient [facility] [id number] Univers 11:30:00 11:30:[address] [facility] 2020-08-04 2020-08-04 [facility] [id number] Common 00:00:00 00:00:00 [facility] 2020-07-31 2020-07-31 Ancillary Anand Hughes [facility] 1.2. 840.114 [id number] Univers 10:09:51 10:54:51 Visit Gasper Armenta 350.1.13.10 ity of [place].7.2.[place] [phone] Va dical nal [address] [facility] 2020-07-30 2020-07-30 [facility] 1.2.840.114 [id number] Univers 13:17:45 23:59:00 Encounter Gasper GALLEGOS 350.1.13.10 ity of [place]2.[place].2.[place] AT [phone] Va dicverona VICTORY [facility] 2020-07-30 2020-07-30 Outpatient R TERRISAMUEL [facility] [id number] Univers 14:00:00 14:00:00 GASPER rona [facility] 2020-07-30 2020-07-30 Office [facility] 1.2.937.720 [id number] Univers 13:09:16 13:19:16 Visit Gasper GALLEGOS 350.1.13.10 ity of [place] [phone] Va dicverona VICTORY [facility] 2020-07-29 2020-07-29 Abstract [facility]HATCHI [facility] 1.2.840.114 [id number] Univers 00:00:00 00:00:00 Martínez SPECIALTY 350.1.13.10 ity of [place]2.[place].2.[place] AT [phone] Va dicverona OCONNOR [facility] 2020-07-23 2020-07-23 Outpatient [facility] [id number] Univers 14:30:00 14:30:[address] [facility] 2020-07-22 2020-07-22 Ancillary Anand Hughes [facility] 1.2. 840.114 [id number] Univers 10:41:38 11:26:38 Visit Gasper Armenta 350.1.13.10 ity [facility] 4.2.7.2.686 [facility] [phone] Va dical nal [address] [facility] 2020-07-22 2020-07-22 Outpatient R TERRISAMUEL [facility] [id number] Univers 10:30:00 10:30:[address] [facility] 2020-07-21 2020-07-21 Outpatient STLC STLC [id number] Common 00:00:00 00:00:00 [facility] 2020-07-16 2020-07-16 Outpatient [facility] [id number] Univers 14:30:00 14:30:[address] [facility] 2020-07-09 2020-07-09 Outpatient Nathan [facility] [id number] Univers 14:30:00 14:30:00 PILO zuri [facility] 2020-07-08 2020-07-08 Ancillary Anand Hughes [facility] 1.2. 840.114 [id number] Univers 13:05:45 13:50:45 Visit Filemon Reyeston 350.1.13.10 ity of [place] 4.2.7.2.686 [facility] [phone] Va dical [address] 2020-07-02 2020-07-02 Ancillary Anand Hughes [facility] 1.2. 840.114 [id number] Univers 15:42:46 16:27:46 Visit Filemon [facility] 350.1.13.10 ity of [place] 4.2.7.2.686 [facility] [phone] [address] ([facility]) 2020-07-02 2020-07-02 Outpatient Nathan DAVIS [facility] [id number] Univers 14:30:00 14:30:00 PILO keating [facility] 2020-06-27 2020-06-27 Outpatient STLMLC STLMLC [id number] Common 00:00:00 00:00:00 [facility] 2020-06-25 2020-06-25 Ancillary Anand Hughes [facility] 1.2. 840.114 [id number] Univers 16:01:12 16:46:12 Visit Filemon Reyes 350.1.13.10 ity of [place] 4.2.7.2.686 [facility] [phone] [address] ([facility]) 2020-06-25 2020-06-25 Outpatient R KATHI [facility] [id number] Univers 15:00:00 15:00:00 GASPER keating [facility] 2020-06-25 2020-06-25 Office Kathi [facility] 1.2.512.271 [id number] Univers 14:19:27 14:29:27 Visit Gasper GALLEGOS 350.1.13.10 ity of CARE 4.2.7.2.686 [facility] AT [phone] Va dical [address] 2020-06-25 2020-06-25 Orders Doctor GASPER 1.2.840.114 [id number] Univers 00:00:00 00:00:00 Only Unassigned, LOUISA 350.1.13.10 ity of [place] [facility] 4.2.7.2.686 Tez as [phone] [facility] [address] [place] 2020-06-24 2020-06-24 Outpatient [facility] [id number] Univers 09:00:00 09:00:00 FILEMON keating [facility] 2020-06-20 2020-06-20 Outpatient R [facility] [id number] Univers 08:00:00 08:00:[address] [facility] 2020-06-18 2020-06-18 Outpatient R [facility] [id number] Univers 14:00:00 14:00:[address] [facility] 2020-06-11 2020-06-11 Outpatient R [facility] [id number] Univers 13:30:00 13:30:00 [facility] 2020-06-11 2020-06-11 Office FailsamuelTOHATCH[facility] 1.2.160.469 [id number] Univers 10:50:34 11:00:34 Visit Gasper GALLEGOS 350.1.13.10 ity of C[place] 4.2.7.2.686 [place] AT [phone] Va zachery [address] 2020-06-11 2020-06-11 Ancillary Anand Hughes [facility] 1.2. 840.114 [id number] Univers 09:01:47 09:46:47 Visit Filemon [facility] 350.1.13.10 ity of [place].2.686 [place] [facility] [phone] [facility] 178 [facility] ([facility]) 2020-06-02 2020-06-03 Ancillary Lucy Ball [facility] 1.2.84 0.114 [id number] Univers 16:26:37 16:09:33 Visit Filemon Reyes PRIMARY 350.1.13.10 ity of [place]2.[place].2.[place] [phone] Me dical [address] 2020-06-03 2020-06-03 Bright Stanley [facility] 1.2.840.114 [id number] Univers 00:00:00 00:00:00 [facility] 350.1.13.10 ity of [place]2.7.2.[place] [phone] [facility] [address] [place] 2020-06-02 2020-06-[address] [facility] 1.2.040.487 [id number] Univers 15:09:13 16:08:29 Visit Gasper BURNS 350.1.13.10 it y of [place].2.7.2.686 [place] [phone] Va dicwa [address] [place] 2020-06-02 2020-06-02 Outpatient R [facility] [id number] Univers 15:50:00 15:50:00 GASPER keating [facility] 2020-06-02 2020-06-02 Outpatient [facility] [id number] Univers 08:15:00 08:15:00 FILEMON ity [facility] 2020-06-02 2020-06-02 Outpatient STLMLC STLMLC [id number] Common 00:00:00 00:00:00 [facility] 2020-05-15 2020-05-15 [facility] 1.2.840.114 [id number] Univers 09:27:00 18:45:00 Encounter Gasper [place] 350.1.13.10 ity of [place] [employer] [facility] 4.2.7.2.686 Tez as [phone] [facility] [address] 2020-05-13 2020-05-13 Laboratory Only, Adc Test [facility] 1.2.840. 114 [id number] Univers 11:37:23 11:55:23 Only Drew Aggarwal 350.1.13.10 ity of [facility] 4.2.7.2.686 [facility] [phone] [facility] [address] 2020-05-13 2020-05-13 Outpatient R [facility] [id number] Univers 11:30:00 11:30:00 ity of [facility] [place] 2020-05-05 2020-05-05 [facility] [id number] Univers 14:58:04 23:59:00 Encounter [facility] [id number] ity of CARE [id number] Texerika LEEON [phone] Me dical [address] [place] 2020-05-05 2020-05-[address] [facility] [id number] Univers 14:38:00 16:31:29 Visit [facility] [id number] it y of CARE [id number] Texerika LEEON [id number] Me dical [address] [place] 2020-05-05 2020-05-05 [facility] [id number] Univers 14:30:00 14:30:[address] [facility] 2020-05-05 2020-05-05 [facility] [id number] Univers 10:00:00 10:00:[address] [facility] 2020-04-30 2020-04-30 Hospital [facility] [id number] Univers 14:49:11 23:59:00 Encounter [facility] [id number] ity of Surgical [id number] Tez as Specialti [phone] Va dical es 809 [facility] 2020-04-30 2020-04-30 [facility] [id number] Univers 15:00:00 15:00:[address] [facility] 2020-04-30 2020-04-30 [facility] [id number] Univers 14:43:50 14:58:50 Visit [facility] [id number] it y of Surgical [id number] Tez as Specialti [id number] Me dical es 198 [facility] 2020-04-22 2020-04-22 Outpatient [facility] [id number] Common 16:07:00 16:07:00 [facility] 2020-03-10 2020-03-10 Out[facility] [id number] Common 14:12:00 14:12:[address] [facility] 2020-02-18 2020-02-18 Out[facility] [id number] Common 16:18:00 16:18:[address] [facility] 2020-02-06 2020-02-06 Outpatient [facility] [id number] Common 13:37:00 13:37:[address] [facility] 2020-02-04 2020-02-04 Outpatient [facility] [id number] Common 01:42:00 01:42:[address] [address] [facility] 2020-01-31 2020-01-31 [facility] [id number] Common 14:20:00 14:20:[address] [facility] 2020-01-30 2020-01-30 [facility] [id number] Common 14:10:00 14:10:[address] [facility] 2019-12-03 2019-12-03 [facility] [id number] Common 16:36:00 16:36:[address] [facility] 2019-11-18 2019-11-18 [facility] [id number] Common 13:03:00 13:03:[address] [facility] 2019-11-12 2019-11-12 [facility] [id number] Common 13:39:00 13:39:[address] [facility] 2019-10-31 2019-10-31 [facility] [id number] Common 13:30:00 13:30:[address] [facility] 2019-09-03 2019-09-03 [facility] [id number] Common 16:31:00 16:31:[address] [facility] 2019-07-31 2019-07-31 [facility] [id number] Common 16:41:00 16:41:[address] [facility] 2019-07-28 2019-07-28 [facility] [id number] Common 02:30:00 02:30:[address] [facility] 2019-07-27 2019-07-27 [facility] [id number] Common 16:20:00 16:20:[address] [facility] 2019-07-04 2019-07-04 [facility] [id number] Common 08:55:00 08:55:[address] [facility] 2019-06-11 2019-06-11 [facility] [id number] Common 09:00:00 09:00:[address] [facility] 2019-06-07 2019-06-07 [facility] [id number] Common 11:00:00 11:00:[address] [facility] 2019-06-05 2019-06-05 [facility] [id number] Common 08:30:00 08:30:[address] [facility] 2019-05-10 2019-05-10 [facility] [id number] Common 08:30:00 08:30:[address] [facility] 2019-05-02 2019-05-02 [facility] [id number] Common 11:27:00 11:27:[address] [facility] 2019-04-17 2019-04-17 [facility] [id number] Common 16:14:00 16:14:[address] [facility] 2019-03-26 2019-03-26 [facility] [id number] Common 09:22:00 09:22:[address] [facility] 2019-03-09 2019-03-09 [facility] [id number] Common 09:45:00 09:45:[address] [facility] 2019-03-01 2019-03-01 [facility] [id number] Common 12:06:00 12:06:[address] [facility] 2019-02-20 2019-02-20 [facility] [id number] Common 14:01:00 14:01:[address] [facility] 2019-02-08 2019-02-08 [facility] [id number] Common 13:15:00 13:15:[address] [facility] 2019-02-06 2019-02-06 [facility] [id number] Common 13:59:00 13:59:[address] [facility] 2018-12-27 2018-12-27 [facility] [id number] Common 13:30:00 13:30:[address] [facility] 2018-04-26 2018-04-26 Outpatient [facility] [id number] [place] 00:00:00 00:00:00 [facility] 2018-03-31 2018-03-31 Outpatient [facility] [id number] [place] 00:00:00 00:00:00 [facility] 2018-03-08 2018-03-08 Outpatient [facility] [id number] [place] 00:00:00 00:00:00 [facility] 2018-02-24 2018-02-24 Outpatient [facility] [id number] [place] 00:00:00 00:00:00 [facility] 2018-02-24 2018-02-24 Outpatient [facility] [id number] [place] 00:00:00 00:00:00 [facility] 2018-02-09 2018-02-09 Outpatient [facility] [id number] [place] 13:36:45 13:36:45 [facility] 2018-02-09 2018-02-09 Outpatient [facility] [id number] [place] 10:28:28 10:28:28 [facility] 2018-01-19 2018-01-19 Outpatient [facility] [id number] [place] 00:00:00 00:00:00 [facility] 2018-01-19 2018-01-19 Outpatient [facility] [id number] [place] 00:00:00 00:00:00 [facility] 2018-01-09 2018-01-09 Outpatient [facility] [id number] [place] 13:25:35 13:25:35 [facility] 2017-12-27 2017-12-27 Outpatient [facility] [id number] [place] 00:00:00 00:00:00 [facility] 2017-12-20 2017-12-20 Outpatient [facility] [id number] [place] 00:00:00 00:00:00 [facility] 2017-12-15 2017-12-15 Outpatient [facility] [id number] [place] 00:00:00 00:00:00 [facility] 2017-12-06 2017-12-06 Outpatient [facility] [id number] [place] 08:10:51 08:10:51 [facility] 2017-12-05 2017-12-05 Outpatient [facility] [id number] [place] 05:30:00 05:30:00 [facility] 2017-12-05 2017-12-05 Outpatient [facility] [id number] [place] 00:00:00 00:00:00 [facility] 2017-12-01 2017-12-01 Outpatient [facility] [id number] [place] 08:19:47 08:19:47 [facility] 2017-12-01 2017-12-01 Outpatient [facility] [id number] [place] 00:00:00 00:00:00 [facility] 2017-12-01 2017-12-01 Outpatient [facility] [id number] [place] 00:00:00 00:00:00 [facility] 2017-11-29 2017-11-29 Outpatient [facility] [id number] [place] 00:00:00 00:00:00 [facility] 2017-11-23 2017-11-23 Outpatient [facility] [id number] [place] 09:49:20 09:49:20 [facility] 2017-11-23 2017-11-23 Outpatient [facility] [id number] [place] 00:00:00 00:00:00 [facility] 2017-11-18 2017-11-18 Outpatient [facility] [id number] [place] 10:51:59 10:51:59 Health 2017-11-14 2017-11-14 Outpatient [facility] [id number] [place] 10:23:03 10:23:03 Health 2017-10-20 2017-10-20 Outpatient [facility] [id number] [place] 00:00:00 00:00:00 [facility] 2017-09-26 2017-09-26 Outpatient [facility] [id number] [place] 13:09:30 13:09:30 Health 2017-09-26 2017-09-26 Outpatient [facility] [id number] [place] 09:55:34 09:55:34 Health 2017-09-23 2017-09-23 Outpatient [facility] [id number] [place] 08:54:23 08:54:23 Health 2017-08-09 2017-08-09 Outpatient [facility] [id number] [place] 08:08:19 08:08:19 [facility] 2017-08-03 2017-08-03 Outpatient [facility] [id number] [place] 15:21:14 15:21:14 Health 2017-07-05 2017-07-05 Outpatient [facility] [id number] [place] 13:54:48 13:54:48 [facility] 2017-06-27 2017-06-27 Outpatient [facility] [id number] [place] 00:00:00 00:00:00 [facility] 2017-06-09 2017-06-09 Outpatient [facility] [id number] [place] 00:00:00 00:00:00 [facility] 2017-04-27 2017-04-27 Outpatient [facility] [id number] [place] 00:00:00 00:00:00 [facility] 2017-04-11 2017-04-11 Outpatient [facility] [id number] [place] 00:00:00 00:00:00 [facility] 2017-01-06 2017-01-06 Outpatient [facility] [id number] [place] 13:59:34 13:59:34 Health 2017-01-06 2017-01-06 Outpatient [facility] [id number] [place] 12:59:46 12:59:46 Health 2016-11-12 2016-11-12 Outpatient [facility] [id number] [place] 12:46:26 12:46:26 Health Results Test Description Test Test Results Result Source Time Comments Comments XR WRIST 3+ VW 2020-12- Stable postop changes of [employer] [facility] LEFT 05 the distal left radius [facility] 21:54:35 and ulna. Chronic Branch appearingremodeling of the distal left radius is stable, cannot exclude chronicosteomyelitis. Persistent left wrist soft tissue swelling. RL: 7000 Patient name: RACHEL NATION: 1955 65 years EXAMINATION: [...] [employer] of OCCUPATIONAL 05 Note:Consult received, [facility] THER[facility] 00:00:00 epic chart reviewed, and [...] WRIST 3+ VW 2020-08- Stable hardware fixation [facility] 06 of healing distal radial [facility] 19:31:56 and ulnar fractures. Bran ch EXAM: [...] Comme nts POCT GLU (test code = [id number]) 130 mg/dL 70-110 H Lab Interpretation (test code = 83356-1) [facility]2020-05-15 22:40:12 These images do not require a Radiology diagnostic report.[facility]ATED)2020-05-15 15:19:00 Test Item Value Reference Range Interpretation Comments POCT GLU (test code = [id number]) 141 mg/dL 70-110 H Lab Interpretation (test code = Abnormal 16705-5) [facility] 3+ VW [id number] 21:55:27 Unchanged alignment of the distal radius [...] of the distal radius fracture.Unchanged distal ulnar fracture.[facility]
--- NOTE | 2022-12-21 18:45 | RAD REPORT ---
EXAM DESCRIPTION: CT - Head Brain Wo Cont - 12/21/2022 6:36 pm CLINICAL HISTORY: WEAKNESS COMPARISON: Head Brain Wo Cont dated 08/30/2020; Head Brain Wo Cont dated 05/03/2019 TECHNIQUE: All CT scans are performed using dose optimization technique as appropriate and may inclu de automated exposure control or mA/KV adjustment according to patient size. FINDINGS: No intracranial hemorrhage, hydrocephalus or extra-axial fluid collection.No areas of brai n edema or evidence of midline shift. Cerebral atrophy which is age advanced. Mild chronic small vess el ischemic changes. The paranasal sinuses and mastoids are clear. The calvarium is intact. IMPRESSION: No acute intracranial abnormality.
[2022-12-21 18:49] LABS: Absolute Lymphocytes (CBC) 1.2 K/uL (0.7-4.9); Hematocrit 34.7 % (36.0-45.0); MPV 9.4 fL (7.6-11.3); RBC Red Blood Cell Count 3.73 M/uL (3.86-4.86)
[2022-12-21 18:53] LABS: Protime INR 1.09
--- NOTE | 2022-12-21 19:08 | RAD REPORT ---
EXAM DESCRIPTION: RAD - Chest Single View - 12/21/2022 6:50 pm CLINICAL HISTORY: weakness COMPARISON: Chest Single View dated 06/05/2022; Chest Single View dated 10/21/2020; Chest Single View dated 08/30/2020; Chest Single View dated 05/03/2019 FINDINGS: Lines: None. Lungs: No evidence of edema or pneumonia. Pleural: No significant pleural effusions or pneumothorax. Cardiac: Similar cardiomegaly Mediastinum: Within normal limits. Bones: No acute fractures. Sternotomy. The upper most sternotomy wire is fractured, similar. Other: None IMPRESSION: No acute cardiopulmonary disease.
--- NOTE | 2022-12-21 19:08 | RAD REPORT ---
EXAM DESCRIPTION: RAD - Pelvis - 12/21/2022 6:49 pm CLINICAL HISTORY: fall COMPARISON: Knee Left 3 View dated 12/21/2022; Chest Single View dated 12/21/2022 FINDINGS/IMPRESSION: No acute fracture. No malalignment. At least mild bilateral acetabular degenera tive changes. The femoral heads appear located. Degenerative changes are present in the lower spine.
--- NOTE | 2022-12-21 19:09 | RAD REPORT ---
EXAM DESCRIPTION: RAD - Knee Left 3 View - 12/21/2022 6:49 pm CLINICAL HISTORY: fall, knee pain COMPARISON: No comparisons FINDINGS/IMPRESSION: No acute fracture. No malalignment. Chondrocalcinosis the mediolateral compartm ents. Peripheral vascular calcifications . Surgical clips present in the leg. Mild patellofemoral com partment spurring. Slight mediolateral compartment spurring. Joint spaces are preserved.
[2022-12-21 19:13] LABS: Albumin 3.3 g/dL (3.4-5.0); Bilirubin Direct 0.2 mg/dL (0-0.2); Bilirubin Total 0.6 mg/dL (0.2-1.0); Magnesium 2.1 mg/dL (1.6-2.4); Potassium 3.5 mEq/L (3.5-5.1); Protein, Total 7.6 g/dL (6.4-8.2); Troponin High Sensitivity 36.5 pg/mL (<58.9)
[2022-12-21 19:52] LABS: Urine Bacteria <20 /HPF (<20); Urine Bilirubin NEGATIVE (Negative); Urine Blood 1+ (Negative); Urine Clarity Clear (Clear); Urine Color Yellow (Yellow); Urine Glucose 4+ (Over) (Negative); Urine Mucus Slight /HPF (None Seen); Urine Protein 1+ (Negative); Urine RBC <5 /HPF (None Seen); Urine Urobilinogen Normal (Normal); Urine pH 5.5 (5.0-7.0)
[2022-12-21] MEDS ORDERED: PANTOPRAZOLE 40 MG INJ ONE ×2 (20:16→21:48)
[2022-12-21] MEDS ORDERED: CEFEPIME 1 GM/VIAL ONE (20:16)
[2022-12-21] MEDS ORDERED: NA CHLORIDE 0.9% 100 ML ONE (20:16)
--- NOTE | 2022-12-21 21:08 | ER ---
Nurse's Notes [facility] Name: Indira Chavis Age: 67 yrs Sex: Female : 1955 Arrival Date: 12/21/2022 Time: 17:46 Bed 2 Private MD: Diagnosis: GI Bleed/ Gastrointestinal hemorrhage, unspecified;Weakness;Diarrhea, unspecified;Dehydration Presentation: 12/21 17:47 Chief complaint: EMS states: Pt reportedly lost balance this morning after using the restroom and fell from a standing position. Pt was unable to get up or get to a phone for the majority of the day. Denies pain at this time. Coronavirus screen: Client denies travel out of the [place] in the last 14 days. Ebola Screen: Patient denies exposure to infectious person. Patient denies travel to an Ebola-affected area in the 21 days before illness onset. Initial Sepsis Screen: Does the patient meet any 2 criteria? No. Patient's initial sepsis screen is negative. Does the patient have a suspected source of infection? No. Patient's initial sepsis screen is negative. Risk Assessment: Do you want to hurt yourself or someone else? Patient reports no desire to harm self or others. Onset of symptoms was December 21, 2022. 17:47 Method Of Arrival: EMS: [facility] 17:47 Acuity: [place]ER[place] 3 ss Historical: - Allergies: 17:50 No Known Allergies; ss - PMHx: 17:50 Chronic systolic heart failure; diabetes mellitus; Hypercholesterolemia; Hypertensive ss disorder; - Immunization history:: Client reports receiving the 2nd dose of the Covid vaccine. - Social history:: Smoking status: Patient denies any tobacco usage or history of. Screenin:36 [facility] ED Fall Risk Assessment (Adult) History of falling in the last 3 months, db including since admission Yes- fall prone (multiple falls) (3 pts) Confusion or Disorientation No (0 pts) Intoxicated or Sedated No (0 pts) Impaired Gait Yes (1 pt) Mobility Assist Device Used Yes (1 pt) Altered Elimination Yes (1 pt) Score/Fall Risk Level 3 or more points = High Risk Oriented to surroundings, Maintained a safe environment. Abuse screen: Denies threats or abuse. Denies injuries from another. Nutritional screening: No deficits noted. Tuberculosis screening: No symptoms or risk factors identified. Assessment: 18:35 Reassessment: Patient appears in no apparent distress at this time. Patient and/or db family updated on plan of care and expected duration. Pain level reassessed. Patient is alert, oriented x 3, equal unlabored respirations, skin warm/dry/pink. general weakness and fall. General: Appears in no apparent distress. comfortable, Behavior is calm, cooperative. Pain:. 19:41 General: Appears in no apparent distress. comfortable, Behavior is calm, cooperative. lg3 Pain: Denies pain. Neuro: No deficits noted. Carlson Agitation-Sedation Scale (RASS): 0 - Alert and Calm Level of Consciousness is awake, alert, obeys commands, Oriented to person, place, time, situation. Cardiovascular: No deficits noted. Denies chest pain, shortness of breath, Capillary refill < 3 seconds Clubbing of nail beds is absent Patient's skin is warm and dry. Respiratory: No deficits noted. Airway is patent Respiratory effort is even, unlabored, Respiratory pattern is regular, symmetrical. GI: Abdomen is round non-distended, obese, Abd is soft and non tender X 4 quads. : No deficits noted. No signs and/or symptoms were reported regarding the genitourinary system. EENT: No deficits noted. No signs and/or symptoms were reported regarding the EENT system. Derm: No deficits noted. No signs and/or symptoms reported regarding the dermatologic system. Skin is intact, is healthy with good turgor, Skin is dry, Skin is normal, Skin temperature is warm. Musculoskeletal: Reports generalized weakness. 20:30 Reassessment: Patient appears in no apparent distress at this time. Patient and/or jb4 family updated on plan of care and expected duration. Pain level reassessed. Patient is alert, oriented x 3, equal unlabored respirations, skin warm/dry/pink. 21:30 Reassessment: Patient appears in no apparent distress at this time. Patient and/or jb4 family updated on plan of care and expected duration. Pain level reassessed. Patient is alert, oriented x 3, equal unlabored respirations, skin warm/dry/pink. 22:30 Reassessment: Patient appears in no apparent distress at this time. Patient and/or jb4 family updated on plan of care and expected duration. Pain level reassessed. Patient is alert, oriented x 3, equal unlabored respirations, skin warm/dry/pink. Vital Signs: 17:45 BP 119 / 52; Pulse 79; Resp 18; Pulse Ox 92% on R/A; db 17:47 BP 112 / 50; Pulse 81; Resp 18; Temp 98.3(O); Pulse Ox 95% on R/A; Weight 81.65 kg; ss Height 5 ft. 2 in. ; Pain 0/10; 18:15 BP 123 / 52; Pulse 74; Resp 18; Pulse Ox 94% on R/A; db 20:22 BP 147 / 59; Pulse 69; Resp 16; Pulse Ox 97% on R/A; jb4 21:15 BP 130 / 57; Pulse 68; Resp 16; Pulse Ox 95% on R/A; jb4 22:14 BP 145 / 93; Pulse 72; Resp 16; Pulse Ox 94% on R/A; jb4 17:47 Body Mass Index 32.92 (81.65 kg, 157.48 cm) ss 17:47 Pain Scale: Adult ss ED Course: 17:47 Patient arrived in ED. ss 17:50 Triage completed. ss 17:50 Arm band placed on right wrist. ss 17:53 Benny Ruiz PA is PHCP. jmm 17:53 Aurelio Jordan MD is Attending Physician. jmm 18:26 Inserted saline lock: 20 gauge in right antecubital area, using aseptic technique. db Blood collected. 18:34 Marely Carver, RN is Primary Nurse. db 18:38 CT Head Brain wo Cont In Process Unspecified. EDMS 18:51 XRAY Chest (1 view) In Process Unspecified. EDMS 18:51 Knee Left 3 View XRAY In Process Unspecified. EDMS 18:51 Pelvis XRAY In Process Unspecified. EDMS 19:41 Patient has correct armband on for positive identification. Bed in low position. Call lg3 light in reach. Side rails up X 1. Client placed on continuous cardiac and pulse oximetry monitoring. NIBP monitoring applied. clinical research monitor on. Door closed. Noise minimized. Warm blanket given. Family accompanied patient. 19:41 Urinalysis w/ reflexes Sent. lg3 21:06 Allison Alex PA-C is Hospitalizing Provider. jmm 21:15 Marion Butler MD is Hospitalizing Provider. sb4 22:12 Inserted saline lock: 24 gauge in right hand, using aseptic technique. Inserted saline jb4 lock: 22 gauge in left upper arm, using aseptic technique. Administered Medications: 20:11 Drug: Pantoprazole IVP 40 mg Route: IVP; Site: right antecubital; lg3 20:11 Drug: Cefepime IVPB 1 grams Route: IVPB; Rate: 200 ml/hr; Infused Over: 30 mins; Site: lg3 right antecubital; 22:14 Follow up: IV SiteChange: right hand; IV SiteChange Reason: Infiltration jb4 22:13 Drug: Pantoprazole IV 8 mg/hr Route: IV; Rate: 25 ml/hr; Site: left upper arm; jb4 22:13 Drug: NS 0.9% IV 250 ml Route: IV; Rate: bolus; Site: left upper arm; jb4 Outcome: 21:07 Decision to Hospitalize by Provider. annam 23:15 Patient left the ED. sb4 Signatures: Dispatcher [employer] EDMS Benny Ruiz PA PA jmm Smirch, Shelby, RN RN ss Bryson, James, RN RN jb4 Stefany Rojo RN RN lg3 Marely Carver, RN Allison Bundy PA-C PA-C sb4
--- NOTE | 2022-12-21 21:08 | EDPHYS ---
Physician Documentation [facility] Name: Indira Chavis Age: 67 yrs Sex: Female : 1955 Arrival Date: 12/21/2022 Time: 17:46 Bed 2 Private MD: ED Physician Aurelio Jordan HPI: 12/21 17:53 This 67 yrs old Female presents to ER via EMS with complaints of Fall Injury. jmm 17:53 Details of fall: The patient fell from an upright position. Onset: The symptoms/episode jmm began/occurred acutely, today. This is a 67-year-old female with history of CHF, diabetes mellitus, hyperlipidemia the presents emerged part with complaints of generalized weakness, diarrhea symptoms began this morning. Patient states she is only able to stand. Patient states she fell hitting both of her knees. Majority of her pain to her left knee. Denies hitting her head.. Historical: - Allergies: 17:50 No Known Allergies; ss - PMHx: 17:50 Chronic systolic heart failure; diabetes mellitus; Hypercholesterolemia; Hypertensive ss disorder; - Immunization history:: Client reports receiving the 2nd dose of the Covid vaccine. - Social history:: Smoking status: Patient denies any tobacco usage or history of. ROS: 17:53 Cardiovascular: Negative for chest pain, palpitations, and edema, Respiratory: Negative jmm for shortness of breath, cough, wheezing, and pleuritic chest pain. 17:53 Constitutional: Positive for fatigue. 17:53 Abdomen/GI: Positive for diarrhea. 17:53 All other systems are negative. Exam: 17:53 Constitutional: This is a well developed, well nourished patient who is awake, alert, jmm and in no acute distress. Head/Face: atraumatic. Eyes: EOMI, no conjunctival erythema appreciated ENT: Moist Mucus Membranes Neck: Trachea midline, Supple Chest/axilla: Normal chest wall appearance and motion. Cardiovascular: Regular rate and rhythm. No edema appreciated Respiratory: Normal respirations, no respiratory distress appreciated Abdomen/GI: Non distended Back: Normal ROM Skin: General appearance color normal 17:53 Musculoskeletal/extremity: ROM: intact in all extremities. 17:53 Skin: Abrasions noted to the knees bilaterally. 17:53 Neuro: Motor: is normal. 17:53 Psych: Behavior/mood is pleasant, cooperative. Vital Signs: 17:45 BP 119 / 52; Pulse 79; Resp 18; Pulse Ox 92% on R/A; db 17:47 BP 112 / 50; Pulse 81; Resp 18; Temp 98.3(O); Pulse Ox 95% on R/A; Weight 81.65 kg; ss Height 5 ft. 2 in. ; Pain 0/10; 18:15 BP 123 / 52; Pulse 74; Resp 18; Pulse Ox 94% on R/A; db 20:22 BP 147 / 59; Pulse 69; Resp 16; Pulse Ox 97% on R/A; jb4 21:15 BP 130 / 57; Pulse 68; Resp 16; Pulse Ox 95% on R/A; jb4 22:14 BP 145 / 93; Pulse 72; Resp 16; Pulse Ox 94% on R/A; jb4 17:47 Body Mass Index 32.92 (81.65 kg, 157.48 cm) ss 17:47 Pain Scale: Adult ss MDM: 17:53 Patient medically screened. [facility] 22:02 Differential diagnosis: abrasion, closed head injury. Data reviewed: vital signs, [facility] nurses notes, lab test result(s), EKG, radiologic studies, CT scan. Consideration of Admission/Observation Patient was admitted/placed on observation. Management of patient was discussed with the following: Reyna Alex PA-C. I considered the following discharge prescriptions or medication management in the emergency department Medications were administered in the Emergency Department. See MAR. Counseling: I had a detailed discussion with the patient and/or guardian regarding: the historical points, exam findings, and any diagnostic results supporting the discharge/admit diagnosis, lab results, radiology results, the need for further work-up and treatment in the hospital. 22:03 ED course: RN upon change in the patient's underwear noticed melanotic stools. IV jmm Protonix given. Protonix drip given. IV antibiotics given due to leukocytosis.. 12/21 17:58 Order name: Basic Metabolic Panel; Complete Time: 19:16 [facility] 12/21 17:58 Order name: CBC with Diff; Complete Time: 18:50 [facility] 12/21 17:58 Order name: LFT's; Complete Time: 19:16 [facility] 12/21 17:58 Order name: Magnesium; Complete Time: 19:16 [facility] 12/21 17:58 Order name: NT PRO-BNP; Complete Time: 19:16 [facility] 12/21 17:58 Order name: PT-INR; Complete Time: 18:56 [facility] 12/21 17:58 Order name: Troponin HS; Complete Time: 19:16 [facility] 12/21 17:58 Order name: Lactate w/ 2H reflex if indic.; Complete Time: 19:44 [facility] 12/21 17:58 Order name: Blood Culture Adult (2) [facility] 12/21 17:59 Order name: SARS-COV-2 RT PCR; Complete Time: 19:44 [facility] 12/21 17:59 Order name: Influenza Screen (a \T\ B); Complete Time: 19:44 [facility] 12/21 17:59 Order name: Urinalysis w/ reflexes; Complete Time: 19:54 [facility] 12/21 21:28 Order name: CBC without Diff [facility] 12/21 21:28 Order name: Creatine Phosphokinase [facility] 12/21 21:28 Order name: Protime (+INR) [facility] 12/21 21:28 Order name: PTT, Activated Partial Thromb [facility] 12/21 17:58 Order name: XRAY Chest (1 view); Complete Time: 19:16 [facility] 12/21 17:58 Order name: CT Head Brain wo Cont; Complete Time: 18:50 [facility] 12/21 17:58 Order name: Knee Left 3 View XRAY; Complete Time: 19:16 [facility] 12/21 17:58 Order name: Pelvis XRAY; Complete Time: 19:16 [facility] 12/21 21:32 Order name: Abdomen ; Complete Time: 22:52 [facility] 12/21 17:58 Order name: EKG; Complete Time: 18:01 [facility] 12/21 17:58 Order name: Cardiac monitoring; Complete Time: 18:35 [facility] 12/21 17:58 Order name: EKG - Nurse/Tech; Complete Time: 18:35 [facility] 12/21 17:58 Order name: IV Saline Lock; Complete Time: 18:35 [facility] 12/21 17:58 Order name: Labs collected and sent; Complete Time: 18:35 [facility] 12/21 17:58 Order name: O2 Per Protocol; Complete Time: 18:35 [facility] 12/21 17:58 Order name: O2 Sat Monitoring; Complete Time: 18:35 [facility] 12/21 17:59 Order name: Straight Cath; Complete Time: 19:40 jm Administered Medications: 20:11 Drug: Pantoprazole IVP 40 mg Route: IVP; Site: right antecubital; lg3 20:11 Drug: Cefepime IVPB 1 grams Route: IVPB; Rate: 200 ml/hr; Infused Over: 30 mins; Site: lg3 right antecubital; 22:14 Follow up: IV SiteChange: right hand; IV SiteChange Reason: Infiltration jb4 22:13 Drug: Pantoprazole IV 8 mg/hr Route: IV; Rate: 25 ml/hr; Site: left upper arm; jb4 22:13 Drug: NS 0.9% IV 250 ml Route: IV; Rate: bolus; Site: left upper arm; jb4 Disposition Summary: 12/21/22 21:07 Hospitalization Ordered Hospitalization Status: Inpatient Admission jmm [facility] jmm Condition: Stable jmm Problem: new jmm Symptoms: have improved jmm Bed/Room Type: Standard jmm Provider: Marion Butler(12/21/22 21:15) sb4 Room Assignment: [facility](12/21/22 21:50) cg Diagnosis - GI Bleed/ Gastrointestinal hemorrhage, unspecified jmm - Weakness jmm - Diarrhea, unspecified jmm - Dehydration jmm Forms: - Medication Reconciliation Form jmm - SBAR form jmm Signatures: Dispatcher [employer] EDMS Benny Ruiz PA PA jmm Smirch, Shelby, RN RN ss Garcia, Cindy, RN RN Jatin Salomon RN RN jb4 Stefany Rooj RN RN lg3 Allison Alex, PAVirgie PADonnyC sb4 Corrections: (The following items were deleted from the chart) 21:15 21:07 Allison Alex sb4 21:31 21:28 Lactate w/ 2H reflex if indic. ordered. EDMS EDMS 21:46 21:07 jmm cg 21:50 21:46 412 cg
--- NOTE | 2022-12-21 21:24 | P.HP ---
Certification for Inpatient Patient admitted to: Inpatient With expected LOS: >2 Midnights Patient will require the following post-hospital care: None Practitioner: I am a practitioner with admitting privileges, knowledge of patient current condition, hospital course, and medical plan of care. Services: Services provided to patient in accordance with Admission requirements found in Title 42 Section 412.3 of the Code of Federal Regulations Patient History Date of Service: 12/21/22 Primary Care Provider: Johnson Reason for admission: GI Bleed History of Present Illness: Ms. Chavis is a 67 year old female with past medical history of insulin dependent type 2 diabetes, chronic systolic congestive heart failure, hypertension, hype rlipidemia, hypothyroidism, blindness and coronary artery disease status post CABG who presented to the emergency department with complaints of generalized weakness and multiple falls. She states that her legs have been giving out on her all morning and she cannot stand. She typically ambulates with a cane. Images of the chest, pelvis, knee were all negative for acute findings. When nursing staff went to straight cath her, they noticed dark, tarry stools. Her hemoglobin is stable compared to prior visits. Labs significant for lactate 2.6, BUN 34, creatinine 1.9. CT abdomen pelvis was later obtained that showed "Distended gallbladder with mild gallbladder wall thickening could reflect acute cholecystitis in the appropriate clinical setting. Correlate with LFTs. No other acute findings identified" GI was contacted and will take patient for EGD in the morning. She was started on protonix drip in ED. Allergies No Known Allergies Allergy (Unverified 08/30/20 17:13) Home medications list reviewed: Yes Home Medications: Aspirin [Aspirin EC 81 MG] 81 mg PO DAILY 08/31/20 Atorvastatin Calcium 40 mg PO DAILY AT SUPPER 08/31/20 Buspirone HCl [Buspar*] 5 mg PO BID 08/31/20 Citalopram Hydrobromide [Citalopram HBr] 40 mg PO DAILY 08/31/20 Empagliflozin [Jardiance] 25 mg PO DAILY 08/31/20 Furosemide 20 mg PO DAILY 08/31/20 Insulin NPH Human Isophane [Novolin N] 35 units SQ DAILY 08/31/20 Insulin Regular, Human [Novolin R] See Rx Instructions .ROUTE .COMPLEX 08/31/20 Levothyroxine [Synthroid*] 88 mcg PO DAILY 08/31/20 Liothyronine [Cytomel*] 25 mcg PO 0600 08/31/20 Lisinopril [Zestril] 40 mg PO DAILY 08/31/20 Trazodone [Desyrel*] 100 mg PO BEDTIME PRN 08/31/20 Amlodipine [Norvasc*] 10 mg PO DAILY 06/06/22 Donepezil [Aricept*] 10 mg PO BID 06/06/22 Ferrous Sulfate [Ferrous Sulfate*] 325 mg PO DAILY 06/06/22 Gabapentin 300 mg PO TID PRN 06/06/22 Insulin NPH Human [Novolin N (Humulin N)*] 25 units SQ DAILY 6PM 06/06/22 Memantine HCl [Namenda] 5 mg PO DAILY 06/06/22 Amox/Clavulanate [Augmentin 875-125 Tab] 1 each PO BID #14 tab 06/09/22 Doxycycline Hyclate 100 mg PO BID #14 cap 06/09/22 - Past Medical/Surgical History Diabetic: Yes -: diabetes -: CHF -: HLD -: HTN -: hypothyroidism -: CAD -: CABG -: tubal ligation Psychosocial/ Personal History: Patient lives at home with family. - Family History Family History: Reviewed- Non-Contributory - Social History Smoking Status: Never smoker Alcohol use: No CD- Drugs: No Caffeine use: No Place of Residence: Home Review of Systems General: Weakness Gastrointestinal: Vomiting, Diarrhea Physical Examination - Vital Signs Temperature: 98.3 F Blood Pressure: 123/52 Pulse: 74 Respirations: 18 Pulse Ox (%): 94 - Physical Exam General: Alert, In no apparent distress, Obese HEENT: Atraumatic, Sclerae nonicteric Neck: Supple, 2+ carotid pulse no bruit Respiratory: Clear to auscultation bilaterally, Normal air movement Cardiovascular: Regular rate/rhythm, Normal S1 S2 Gastrointestinal: Normal bowel sounds, No tenderness Musculoskeletal: No tenderness Integumentary: No rashes Neurological: Normal speech, Normal affect - Studies Laboratory Data (last 24 hrs) 12/21/22 18:26: PT 12.0, INR 1.09 12/21/22 18:26: WBC 13.70 H, Hgb 11.6 L, Hct 34.7 L, Plt Count 174 12/21/22 18:26: Sodium 137, Potassium 3.5, BUN 32 H, Creatinine 1.91 H, Glucose 183 H, Magnesium 2.1, Total Bilirubin 0.6, AST 18, ALT 20, Alkaline Phosphatase 74 Microbiology Data (last 24 hrs): 12/21/22 18:15 Nasopharnyx Influenza Type A Antigen Screen - Final 12/21/22 18:15 Nasopharnyx Influenza Type B Antigen Screen - Final Assessment and Plan - Problems (Diagnosis) (1) GI bleed Current Visit: Yes Status: Acute Qualifiers: GI bleed type/associated pathology: melena Qualified Code(s): K92.1 - Melena (2) DM2 (diabetes mellitus, type 2) Current Visit: Yes Status: Chronic Qualifiers: Diabetes mellitus mcc insulin use: with mcc use Diabetes mellitus complication status: with hyperglycemia Qualified Code(s): E11.65 - Type 2 diabetes mellitus with hyperglycemia; Z79.4 - care home (current) use of insulin (3) HTN (hypertension) Current Visit: Yes Status: Chronic Qualifiers: Hypertension type: primary hypertension Qualified Code(s): I10 - Essential (primary) hypertension (4) Hyperlipidemia Current Visit: Yes Status: Chronic Qualifiers: Hyperlipidemia type: mixed hyperlipidemia Qualified Code(s): E78.2 - Mixed hyperlipidemia (5) Hypothyroidism Current Visit: Yes Status: Chronic Qualifiers: Hypothyroidism type: acquired Qualified Code(s): E03.9 - Hypothyroidism, unspecified - Plan Upper GI Bleed Patient is blind so she was not aware of melena. Caregiver states she has not noticed dark stool. Hemoglobin stable per chart review. Monitor CBC closely. Type and screen completed. EGD in the morning with Dr. Solomon. NPO at midnight Continue protonix drip Possible cholecystitis CT abdomen pelvis showed distended gallbladder with mild gallbladder wall thickening LFTs within normal limits Patient has no abdominal pain/tenderness on exam. She does report a few episodes of vomiting. Lactate initially elevated at 2.6 but has come down to 1.3 after fluids. I suspect secondary to dehydration. Low suspicion for acute cholecystitis Received cefepime in the ED. Blood cultures obtained Hypertension BP has been stable. Reconcile and continue home meds Hypothyroidism Check lipid panel Resume levothyroxine Insulin Dependent Type 2 Diabetes Confirm and resume long acting insulin accu checks and sliding scale check A1c and lipid panel Discharge Plan: Home Plan to discharge in: Greater than 2 days - Advance Directives Does patient have a Living Will: No Does patient have a Durable POA for Healthcare: No - Code Status/Comfort Care Code Status Assessed: Yes Code Status: Full Code Physician Review: Patient Assessed, Agree with Above Assessment and Plan Critical Care: No Time Spent Managing Pts Care (In Minutes): 50
[2022-12-21] MEDS ORDERED: NA CHLORIDE 0.9% 250 ML ONE ×2 (21:48)
--- NOTE | 2022-12-21 22:49 | RAD REPORT ---
EXAM DESCRIPTION: CTAbdomen Pelvis Wo Contrast - 12/21/2022 10:35 pm CLINICAL HISTORY: melena, leukocytosis COMPARISON: [facility] Protocol dated 10/21/2020; Abdomen Pelvis W Contrast dated 08/30/2020; Abdomen Pel vis W Contrast dated 05/03/2019; Abdomen Pelvis W Contrast dated 08/02/2018 TECHNIQUE: CT of the abdomen and pelvis was performed. All CT scans are performed using dose optimization technique as appropriate and may include automated exposure control or mA/KV adjustment according to patient size. FINDINGS: Lower chest: No acute abnormality. Multi-vessel coronary artery disease. Liver: No acute abnormality or suspicious lesions. Biliary: Distended gallbladder with pericholecystic stranding and wall thickening. Stomach: No significant focal abnormality. Duodenum: No significant focal abnormality. Pancreas: No significant abnormality. Spleen: No significant abnormality. Adrenal: Right adrenal myelolipoma. Adrenal thickening. Kidney/ureter: No hydronephrosis. No renal calculi. 11 mm high attenuation right renal cortical lesio n. Smaller high attenuation lower pole lesions noted. In retrospect, these were likely present on the CT from 08/30/2020 but not as well seen as the attenuation values matched the background contrast en hanced kidney. For this reason, these are most certainly benign hemorrhagic cysts. Retroperitoneum: No retroperitoneal adenopathy. Vascular: No aneurysm. Atherosclerosis . Bowel: No significant focal abnormality. Normal appendix . Peritoneum: No ascites or free air. Bladder: Grossly unremarkable. Reproductive: No adnexal masses. Bones: No acute fracture. Knee. Other: n/a IMPRESSION: Distended gallbladder with mild gallbladder wall thickening could reflect acute cholecys titis in the appropriate clinical setting. Correlate with LFTs. No other acute findings identified.
[2022-12-21] MEDS ORDERED: PANTOPRAZOLE INJ 80 MG in NA CHLORIDE 0.9% 250 ML IV SCH (22:56)
[2022-12-21] MEDS ORDERED: ACETAMINOPHEN 500 MG TAB PO PRN (22:56)
[2022-12-21] MEDS ORDERED: ONDANSETRON 4 MG/2 ML VIAL IV PRN (22:56)
[2022-12-21] MEDS ORDERED: NA CHLORIDE 0.9% 250 ML IV SCH (22:56)
[2022-12-21] MEDS ORDERED: GABAPENTIN 300 MG CAP PO ONE (23:11)
[2022-12-21] MEDS: TRAZODONE 50 MG TABLET PO PRN (23:40)
[2022-12-21 23:56] VITALS: BMI 36.2
[2022-12-22 01:00] LABS: Hematocrit 33.3 % (36.0-45.0); MCV 92.9 fL (80-100); MPV 9.2 fL (7.6-11.3); RBC Red Blood Cell Count 3.58 M/uL (3.86-4.86)
[2022-12-22 05:54] LABS: Absolute Lymphocytes (CBC) 2.8 K/uL (0.7-4.9); Hematocrit 35.3 % (36.0-45.0); MCV 92.9 fL (80-100); MPV 9.4 fL (7.6-11.3)
[2022-12-22] MEDS: INSULIN -REGULAR HUMAN 50 UNIT/0.5 ML ML SQ SCH ×4 (05:58→15:52)
[2022-12-22 06:06] LABS: Potassium 3.9 mEq/L (3.5-5.1)
[2022-12-22] MEDS ORDERED: NA CHLORIDE 0.9% 1,000 ML ONE (08:29)
[2022-12-22] MEDS ORDERED: propofoL 200 MG/20 ML VIAL IV ONE ×2 (08:51)
[2022-12-22] MEDS ORDERED: LIDOCAINE 1% MPF 5 ML VIAL ONE (08:51)
[2022-12-22] MEDS ORDERED: PANTOPRAZOLE INJ 80 MG in NA CHLORIDE 0.9% 250 ML IV SCH (09:00)
--- NOTE | 2022-12-22 14:07 | EKG ---
Test Date: 2022-12-21 Test Time: 18:14:35 Hadoop Analyst: CHIO MEASUREMENT RESULTS: Intervals: Rate: 75 MO: 178 QRSD: 98 QT: 406 QTc: 453 [place]: P: 42 MO: 178 QRS: -22 T: 65 INTERPRETIVE STATEMENTS: Normal sinus rhythm Minimal voltage criteria for LVH, may be normal variant Nonspecific T wave abnormality Abnormal ECG Compared to ECG 06/08/2022 04:19:17 Left ventricular hypertrophy now present T-wave abnormality now present Sinus bradycardia no longer present Left-axis deviation no longer present ST (T wave) deviation no longer present Electronically Signed On 12-22-22 14:06:16 CDT by Bryon Gold
--- NOTE | 2022-12-22 15:22 | CON ---
Date of Consultation: 12/22/2022 Reason For Consultation: Melena due to GI bleed and anemia, hemoglobin of 11.5. History Of Present Illness: Patient is a 67-year-old white female with history of diabetes, hyperten neo, hyperlipidemia, coronary artery disease, status post CABG, and congestive heart failure. Iram graves presented to hospital with some black tarry stools. Hemoglobin noted to be low at approximately [address] scan shows mild gallbladder wall thickening and which could reflect acute cholecystitis in the appropriate clinical setting. However, patient denied any abdominal pain with a normal white count. The patient is put on Protonix in the emergency department. Patient is blind and therefore cannot see. It was noted by the nurses when they were straight cathing her. Past Medical History: Significant for diabetes, hypertension, hyperlipidemia, coronary artery diseas e, status post CABG, congestive heart failure, hypothyroidism, and blindness, and tubal ligation. Social History: She is x2. 4 children, 1 son , shot himself. Another daughter of congestive heart failure with hypertension and hypothyroidism as well. She denies any tobacco use. No alcohol. Family History: Father of unknown causes. Mother of stroke. Medications: Include aspirin, atorvastatin, BuSpar, citalopram, Jardiance, Lasix, insulin regular an d Humulin, Synthroid, Cytomel, Zestril, Desyrel, Norvasc, Aricept, iron, ferrous sulfate, gabapentin, Namenda, Augmentin, doxycycline. Physical Examination: Vital Signs: Patient is 5 feet, 280 pounds. BMI 36.2 kg/sq m. Temperature 97.4 degrees Fahrenheit, pulse 73, respirations 16, blood pressure 97/53, O2 saturation 97%. General: She is a somewhat mildly obese female, lying in bed, in no acute distress. HEENT: Normocephalic, atraumatic. Anicteric. Pupils equal, round, and reactive to light. Extraocu lar movements are intact. Oropharynx is clear. She did have a mustache and thompson that was around th e lips down to the chin. Neck: Supple. No masses. Respirations: Clear to auscultation bilaterally. Cardiac: Regular rate and rhythm. Gastrointestinal: Positive bowel sounds. Soft, nondistended. Some tenderness in the suprapubic are a since she had to pee and then urinated into her diaper and felt somewhat better. Some mild tendern ess in the left upper quadrant area and along the left lower ribs as well. Extremities: No clubbing, cyanosis, or edema. 2+ pulses. Neuro: Alert and oriented x3. She had blindness, could not see. So, cranial nerve 2 is out, but wa s able to move all extremities well. Laboratory Data: Patient's white count 11.9, down from 13.7, yesterday hemoglobin of 11.5 down from 11.6. Yesterday, hematocrit 35.3, MCV of 93, platelet count of 151, polys of 60%, lymphocytes 24%, m onocytes 15%, eosinophils 1%. PT of 12.0, INR of 1.1. Chemistry: Sodium 141, potassium 3.9, chlori de 110, bicarb 26, BUN of 28, creatinine of 1.3, glucose 146, creatine kinase 1430, triglycerides 89, cholesterol 102, LDL 29, HDL 55. Yesterday, patient had a magnesium 3.1, calcium 9.5, total bilirub in 0.6, direct bilirubin 0.2, AST of 18, ALT of 20, alkaline phosphatase 74, troponin of 36.5. B-typ e natriuretic peptide 378. Total protein 7.6, albumin 3.3. UA: 1+ blood, 4+ glucose, 25 leukocyte esterase, less than 5 squamous epithelial cells, less than 20 bacteria, 1+ protein. COVID-[address] abdomen and pelvis revealed distended gallbladder, mild gallbladder wall thickenin g, which reflected acute cholecystitis in the appropriate setting. However, patient has no abdominal pain. The liver chemistries are normal. No other acute findings new on physical exam. Impression: 1.Melena, gastrointestinal bleed. 2. . 3.Anemia. Hemoglobin down to 11.5. 4.History of diabetes, hypertension, hyperlipidemia, coronary artery disease, status post coronary a rtery bypass graft, congestive heart failure, hypothyroidism, and blindness. Recommendations: 1.Serial H and Hs, and transfuse p.r.n. 2.PPI therapy. 3.IV fluids and resuscitation. 4.EGD. 5.Keep patient n.p.o. GURWINDER/KATIANA Voice ID: [id number] Report ID: [id number]
[2022-12-22] MEDS ORDERED: SODIUM CHLORIDE 0.9% 10ML INJ IV PRN (18:09)
[2022-12-22] MEDS: NA CHLORIDE 0.9% 250 ML IV SCH ×3 (18:09→23:09)
[2022-12-22] MEDS ORDERED: D50W 25 GM/50 ML SYRINGE IV PRN (21:05)
[2022-12-22] MEDS ORDERED: TRAZODONE 50 MG TABLET PO PRN (21:05)
[2022-12-22] MEDS ORDERED: GLUCAGON 1 MG/VIAL IM PRN (21:05)
[2022-12-22] MEDS: TRAZODONE 50 MG TABLET PO PRN (21:06)
[2022-12-22] MEDS ORDERED: D10W 125 ML IV PRN (21:10)
[2022-12-22] MEDS: PANTOPRAZOLE 40 MG INJ IVP SCH (21:11)
[2022-12-22] MEDS: GABAPENTIN 300 MG CAP PO SCH (21:26)
[2022-12-23] MEDS: NA CHLORIDE 0.9% 250 ML IV SCH ×2 (04:09→09:09)
[2022-12-23 06:18] LABS: Absolute Lymphocytes (CBC) 1.7 K/uL (0.7-4.9); Lymphocytes % 16.1 % (15.3-44.8); MCV 93.3 fL (80-100); MPV 9.3 fL (7.6-11.3); RBC Red Blood Cell Count 3.65 M/uL (3.86-4.86)
[2022-12-23 06:59] LABS: Albumin 2.8 g/dL (3.4-5.0); Bilirubin Total 0.6 mg/dL (0.2-1.0); Magnesium 1.7 mg/dL (1.6-2.4); Potassium 3.8 mEq/L (3.5-5.1); Protein, Total 6.8 g/dL (6.4-8.2)
[2022-12-23] MEDS: LIOTHYRONINE SOD 25 MCG TAB PO SCH (07:30)
[2022-12-23] MEDS: INSULIN -REGULAR HUMAN 50 UNIT/0.5 ML ML SQ SCH ×5 (07:30→22:09)
[2022-12-23] MEDS: BUSPIRONE HCL 5 MG TABLET PO SCH ×2 (08:45→22:08)
[2022-12-23] MEDS: PANTOPRAZOLE 40 MG INJ IVP SCH ×2 (08:45→22:09)
[2022-12-23] MEDS: DONEPEZIL HCL 5 MG TAB PO SCH ×2 (08:45→22:08)
[2022-12-23] MEDS: MEMANTINE HCL 10 MG TABLET PO SCH (08:45)
[2022-12-23] MEDS: lisinopriL 20 MG TAB PO SCH (08:45)
[2022-12-23] MEDS: LEVOTHYROXINE SOD 0.088 MG TAB PO SCH (08:46)
[2022-12-23] MEDS: AMLODIPINE 10 MG TAB PO SCH (08:46)
[2022-12-23] MEDS: GABAPENTIN 300 MG CAP PO SCH ×2 (08:46→22:08)
[2022-12-23] MEDS ORDERED: LOPERAMIDE HCL 2 MG CAPSULE PO ONE (09:51)
[2022-12-23] MEDS ORDERED: NA CHLORIDE 0.9% 500 ML IV ONE (13:09)
[2022-12-23] MEDS: SOD FERRIC GLUC COMPLX/SUCROSE 125 MG in NA CHLORIDE 0.9% 100 ML IV SCH (14:36)
[2022-12-23] MEDS: NA CHLORIDE 0.9% 1,000 ML IV SCH (14:36)
[2022-12-23] MEDS ORDERED: ATORVASTATIN 40 MG TAB PO SCH (17:00)
[2022-12-23] MEDS ORDERED: NPH (HUMAN) 100 UNITS/ML INSULIN SQ SCH (18:00)
--- NOTE | 2022-12-23 21:46 | P.PN ---
Subjective Date of Service: 12/23/22 Primary Care Provider: Johnson Chief Complaint: GI Bleed, melena Subjective: Improving (No further melena on therapy.) Review of Systems 10-point ROS is otherwise unremarkable General: Weakness (Improving. ) Physical Examination - Vital Signs Temperature: 98 F Blood Pressure: 116/51 Pulse: 86 Respirations: 17 Pulse Ox (%): 93 - Physical Exam General: Alert, In no apparent distress, Oriented x3, Cooperative HEENT: Atraumatic, Normocephalic, PERRLA, EOMI Neck: Supple Respiratory: Normal air movement Cardiovascular: Normal pulses Gastrointestinal: Soft and benign, No tenderness, No rebound, No guarding Neurological: Normal speech Assessment And Plan - Current Problems (Diagnosis) (1) Melena Current Visit: Yes Status: Acute (2) GI bleed Current Visit: Yes Status: Acute Qualifiers: GI bleed type/associated pathology: melena Qualified Code(s): K92.1 - Melena (3) DM2 (diabetes mellitus, type 2) Current Visit: Yes Status: Chronic Qualifiers: Diabetes mellitus keno terminal operator insulin use: with keno terminal operator use Diabetes mellitus complication status: with hyperglycemia Qualified Code(s): E11.65 - Type 2 diabetes mellitus with hyperglycemia; Z79.4 - terminal make up operator (current) use of insulin (4) HTN (hypertension) Current Visit: Yes Status: Chronic Qualifiers: Hypertension type: primary hypertension Qualified Code(s): I10 - Essential (primary) hypertension (5) Gastritis Current Visit: Yes Status: Acute (6) Gastric erosions Current Visit: Yes Status: Acute - Plan REC: 1) advance diet to FLs and then to 1800 ADA diet 2) continue PPI therapy Physician Review: Patient Assessed, Agree with Above Assessment and Plan
[2022-12-24] MEDS: NA CHLORIDE 0.9% 1,000 ML IV SCH ×2 (03:20→06:40)
[2022-12-24] MEDS: LIOTHYRONINE SOD 25 MCG TAB PO SCH (06:40)
[2022-12-24] MEDS: INSULIN -REGULAR HUMAN 50 UNIT/0.5 ML ML SQ SCH ×2 (07:30→11:54)
[2022-12-24] MEDS: lisinopriL 20 MG TAB PO SCH (08:51)
[2022-12-24] MEDS: DONEPEZIL HCL 5 MG TAB PO SCH (08:52)
[2022-12-24] MEDS: GABAPENTIN 300 MG CAP PO SCH (08:52)
[2022-12-24] MEDS: MEMANTINE HCL 10 MG TABLET PO SCH (08:52)
[2022-12-24] MEDS: LEVOTHYROXINE SOD 0.088 MG TAB PO SCH (08:53)
[2022-12-24] MEDS: BUSPIRONE HCL 5 MG TABLET PO SCH (08:53)
[2022-12-24] MEDS: AMLODIPINE 10 MG TAB PO SCH (08:53)
[2022-12-24] MEDS: PANTOPRAZOLE 40 MG INJ IVP SCH (08:54)
[2022-12-24] MEDS: SOD FERRIC GLUC COMPLX/SUCROSE 125 MG in NA CHLORIDE 0.9% 100 ML IV SCH (09:17)
[2022-12-24 11:05] VITALS: O2SAT 93
[2022-12-24 13:29] VITALS: BP 139/64; TEMP 98.5
== END 2022-12-24 15:40 | disposition home health service (06) | DRG 378 ==
LOC: ER 17:46 → ERHOLD 21:17 → 4TH 22:07
PROVIDERS: ADMIT Hospitalist; ATTEND Hospitalist
PROC: 0DB78ZX Excision of Stomach, Pylorus, Via Natural or Artificial Opening Endoscopic, Diagnostic (ICD-10-PCS; 2022-12-22)
PROC: 0DB68ZX Excision of Stomach, Via Natural or Artificial Opening Endoscopic, Diagnostic (ICD-10-PCS; principal; 2022-12-22 08:45)
DX: K29.01 Acute gastritis with bleeding (principal); I50.22 Chronic systolic (congestive) heart failure; I11.0 Hypertensive heart disease with heart failure; E78.00 Pure hypercholesterolemia, unspecified; E86.0 Dehydration; H54.7 Unspecified visual loss; E11.65 Type 2 diabetes mellitus with hyperglycemia; E03.9 Hypothyroidism, unspecified; D64.9 Anemia, unspecified; K44.9 Diaphragmatic hernia without obstruction or gangrene; S80.212A Abrasion, left knee, initial encounter; S80.211A Abrasion, right knee, initial encounter; I25.10 Atherosclerotic heart disease of native coronary artery without angina pectoris; Z95.1 Presence of aortocoronary bypass graft; Z79.4 Long term (current) use of insulin; Z63.5 Disruption of family by separation and divorce; Z63.4 Disappearance and death of family member; Z79.82 Long term (current) use of aspirin; Z98.51 Tubal ligation status; Z79.899 Other long term (current) drug therapy; Z79.890 Hormone replacement therapy; Z20.822 Contact with and (suspected) exposure to COVID-19; W19.XXXA Unspecified fall, initial encounter; Y93.9 Activity, unspecified; Y92.9 Unspecified place or not applicable
CPT/HCPCS: 36415; 70450; 71045; 72170; 74176; 80048; 80053; 80061; 80076; 81001; 82550; 82607; 82947; 83036; 83540; 83605; 83735; 83880; 84484; 85025; 85027; 85044; 85610; 86850; 86900; 86901; 87040; 87804; 88305; 88312; 93005; 97110; 97161; 97530; 99285; C9113; J0692; J1815; J2001; J2704; J2916; J7030; J7040; J7050; Q9967; U0003

== ENCOUNTER 2024-07-09 13:01 | Day surgery (SDC) | payer OTHER ==
[2024-07-05 15:49] LABS: Absolute Eosinophils 0.3 K/uL (0-0.5); Absolute Lymphocytes (CBC) 2.3 K/uL (0.7-4.9); Absolute Monocytes 0.7 K/uL (0.1-1.3); Absolute Neutrophil 6.4 K/uL (1.8-8.0); Basophils % 0.3 % (0-1.3); Eosinophils % 2.7 % (0-4.4); Hematocrit 40.9 % (36.0-45.0); Hemoglobin 13.7 g/dL (12.0-15.0); Lymphocytes % 23.8 % (15.3-44.8); MCH 32.8 pg (27.0-35.0); MCHC 33.4 g/dL (32.0-36.0); MCV 98.2 fL (80-100); MPV 9.7 fL (7.6-11.3); Monocytes % 6.9 % (3.3-12.3); Neutrophils % 66.3 % (41.7-73.7); Nucleated Red Blood Cells % 0.2 % (0-0); Platelets 156 thou/uL (152-406); RBC Red Blood Cell Count 4.17 M/uL (3.86-4.86); Red Cell Distribution Width 13.8 % (12.1-15.2)
[2024-07-05 15:50] LABS: Anion Gap 7.2 mEq/L (5.0-15.0); Potassium 4.2 mEq/L (3.5-5.1)
[2024-07-05 15:54] LABS: PT Prothrombin Time 11.3 SECONDS (9.4-12.5); PTT, Activated Partial Thromb 26.8 SECONDS (24.3-36.9); Protime INR 1.01
--- NOTE | 2024-07-05 17:18 | RAD REPORT ---
EXAMINATION: TWO VIEW CHEST XR CLINICAL INDICATION: Female, 69 years old. [facility] Pre-op pending heart catheterization TECHNIQUE: 2 view radiographs of the chest were performed. COMPARISON: 12/21/2022. FINDINGS: The lungs are hypoinflated and clear. No pneumothorax or sizable effusion. The heart is normal in siz e. Mediastinal contours are unchanged, with sequelae of CABG. IMPRESSION: No acute or significant abnormalities.
[2024-07-05 18:11] LABS: Blood Morphology Comment NOT SEEN (NOT SEEN); Platelet Estimate DECR; White Blood Cell Scan OK (OK)
[2024-07-09] MEDS: NA CHLORIDE 0.9% 500 ML ONE (13:38)
[2024-07-09] MEDS ORDERED: HEPA 1000U/500MLS 2,000 UNIT/1,000 ML BAG IV ONE (13:53)
[2024-07-09] MEDS ORDERED: HEPARIN 10,000 UNIT/10 ML VIAL IV ONE (13:54)
[2024-07-09] MEDS ORDERED: CLOPIDOGREL 75 MG TABLET ONE (13:54)
[2024-07-09] MEDS ORDERED: MIDAZOLAM HCL 2 MG/2 ML INJ ONE (13:54)
[2024-07-09] MEDS ORDERED: VERAPAMIL HCL 10 MG/4 ML VIAL IV ONE (13:54)
[2024-07-09] MEDS ORDERED: LIDOCAINE 1% 20 ML MDV ONE (13:54)
[2024-07-09] MEDS ORDERED: HEPARIN 5000 UNIT/ML 1 ML VIAL ONE (13:54)
[2024-07-09] MEDS ORDERED: ATROPINE SULF 1 MG/10 ML SYR IV ONE (13:54)
[2024-07-09] MEDS ORDERED: TICAGRELOR 90 MG TABLET PO ONE (13:55)
[2024-07-09] MEDS ORDERED: FENTANYL CITR 100 MCG/2 ML ONE (13:55)
[2024-07-09] MEDS ORDERED: ASPIRIN 325 MG TAB ONE (13:55)
[2024-07-09] MEDS ORDERED: NA CHLORIDE 0.9% 500 ML ONE (15:34)
--- NOTE | 2024-07-09 17:32 | EKG ---
Test Date: 2024-07-05 Test Time: 15:57:48 Music Professor: KVNG MEASUREMENT RESULTS: Intervals: Rate: 51 MD: 136 QRSD: 102 QT: 462 QTc: 425 [place]: P: 47 MD: 136 QRS: -41 T: 133 INTERPRETIVE STATEMENTS: Sinus bradycardia Left axis deviation Pulmonary disease pattern Incomplete right bundle branch block Left ventricular hypertrophy with repolarization abnormality Abnormal ECG Compared to ECG 12/21/2022 18:14:35 Left-axis deviation now present Incomplete right bundle-branch block now present Early repolarization now present Sinus rhythm no longer present T-wave abnormality no longer present Electronically Signed On 07-09-24 17:23:24 [employer]NAGER [employer] by Bryon Gold
[2024-07-09 19:06] VITALS: BP 143/60; TEMP 99.4; O2SAT 94
== END 2024-07-09 18:52 | disposition home or self-care (01) ==
LOC: CCL 13:01
PROVIDERS: ADMIT Internal Medicine; ATTEND Internal Medicine
DX: I25.10 Atherosclerotic heart disease of native coronary artery without angina pectoris (principal); I25.82 Chronic total occlusion of coronary artery; I65.21 Occlusion and stenosis of right carotid artery; I45.10 Unspecified right bundle-branch block; I10 Essential (primary) hypertension; E78.2 Mixed hyperlipidemia; E11.9 Type 2 diabetes mellitus without complications; E03.9 Hypothyroidism, unspecified; Z95.1 Presence of aortocoronary bypass graft; Z79.82 Long term (current) use of aspirin; Z79.4 Long term (current) use of insulin; Z79.84 Long term (current) use of oral hypoglycemic drugs; Z79.899 Other long term (current) drug therapy; Z82.49 Family history of ischemic heart disease and other diseases of the circulatory system
CPT/HCPCS: 93005; 85025; 80048; 36415; 85610; 82947; 85730; 71046; 93459; 76937; C1893; Q9967; J1644; J2003; J2250; J3010; J7040; C1760; 99152; J0461

== ENCOUNTER 2024-11-15 06:04 | Inpatient (IN) | payer OTHER ==
[2024-11-15 07:55] LABS: Specific Gravity 1.014 (1.005-1.030); Sqamous Epithelial <5 /HPF (None Seen); Urine Bacteria None Seen /HPF (<20); Urine Bilirubin NEGATIVE (Negative); Urine Blood 3+ (OVER) (Negative); Urine Clarity Clear (Clear); Urine Color Light-Yellow (Yellow); Urine Culture Reflex Order NOT NEEDED; Urine Glucose 3+ (Negative); Urine Ketones NEGATIVE (Negative); Urine Microscopic Reflex YN ORDER UMIC; Urine Mucus Slight /HPF (None Seen); Urine Nitrite NEGATIVE (Negative); Urine Protein 1+ (Negative); Urine RBC <5 /HPF (None Seen); Urine Urobilinogen Normal (Normal); Urine WBC <5 /HPF (<5)
--- NOTE | 2024-11-15 07:57 | RAD REPORT ---
EXAM: CT brain without contrast HISTORY: TRAUMA COMPARISON: None TECHNIQUE: Multiple contiguous axial images were obtained and a CT of the brain without contrast. Sag ittal and coronal reformats were performed. One or more of the following dose reduction techniques were used: Automated exposure control, adjust ment of the mA and/or kV according to patient size, and/or iterative reconstruction. FINDINGS: No evidence of hydrocephalus, intracranial hemorrhage, or extra-axial fluid collection. Mild generalized brain atrophy. No evidence of midline shift or areas of brain edema. The calvarium is intact. The visualized paranasal sinuses and mastoid air cells are essentially clear . Chronic calcifications suspected right globe. IMPRESSION: No evidence of acute intracranial abnormality. EXAM: CT of the cervical spine without contrast HISTORY: Neck pain, injury TRAUMA TECHNIQUE: Multiple contiguous axial images were obtained in a CT of the cervical spine without contr ast. Sagittal and coronal reformats were performed. FINDINGS: The vertebral bodies demonstrate normal height and alignment. No evidence of acute fracture or subluxation.. Mild lower cervical spondylosis. No prevertebral soft tissue swelling is seen. The posterior facets are well aligned. Normal alignment of the skull base with the cervical spine is seen. The lung apices are unremarkable. IMPRESSION: No evidence of acute osseous abnormality of the cervical spine.
--- NOTE | 2024-11-15 07:58 | RAD REPORT ---
EXAMINATION: ONE VIEW CHEST XR CLINICAL INDICATION: PAIN TECHNIQUE: Frontal chest projection is submitted. Examination is limited by patient positioning and t echnique. COMPARISON: 07/05/2024 FINDINGS: [id number] bilateral pulmonary opacities may represent pulmonary edema or pneumonia. The heart is upper limit of normal in size. Sternotomy wires present. No displaced fracture seen.
[2024-11-15 07:59] LABS: Absolute Lymphocytes (CBC) 2.2 K/uL (0.7-4.9); Absolute Monocytes 1.3 K/uL (0.1-1.3); Absolute Neutrophil 7.1 K/uL (1.8-8.0); Basophils % 0.5 % (0-1.3); Eosinophils % 0.4 % (0-4.4); Hematocrit 36.7 % (36.0-45.0); Hemoglobin 12.4 g/dL (12.0-15.0); Lymphocytes % 20.9 % (15.3-44.8); MCH 33.4 pg (27.0-35.0); MCHC 33.8 g/dL (32.0-36.0); MCV 98.6 fL (80-100); MPV 9.5 fL (7.6-11.3); Monocytes % 11.7 % (3.3-12.3); Neutrophils % 66.5 % (41.7-73.7); Platelets 163 thou/uL (152-406); RBC Red Blood Cell Count 3.73 M/uL (3.86-4.86); Red Cell Distribution Width 14.3 % (12.1-15.2)
--- NOTE | 2024-11-15 07:59 | RAD REPORT ---
EXAMINATION: XR PELVIS CLINICAL INDICATION: PAIN TECHNIQUE: AP Pelvis examination was obtained. COMPARISON: No prior exam. FINDINGS: Diffuse osteopenia. Mildly impacted subcapital fracture right proximal femur likely present . No dislocation or AVN findings.
[2024-11-15 08:18] LABS: Anion Gap 9.8 mEq/L (5.0-15.0); Magnesium 2.1 mg/dL (1.6-2.4); Potassium 3.8 mEq/L (3.5-5.1)
[2024-11-15 08:26] LABS: Troponin High Sensitivity 94.8 pg/mL (<58.9)
--- NOTE | 2024-11-15 08:45 | RAD REPORT ---
EXAMINATION: XR RIGHT HIP CLINICAL INDICATION: . PAIN RIGHT TECHNIQUE: Multiple views of the right hip were obtained. COMPARISON: No prior exam. FINDINGS: Diffuse osteopenia seen. No evidence of acute fracture, dislocation or AVN.
--- NOTE | 2024-11-15 09:02 | EDPHYS ---
Physician Documentation [facility] Name: Indira Chavis Age: 69 yrs Sex: Female : 1955 Arrival Date: 11/15/2024 Time: 06:04 Bed 7 Private MD: ED Physician London Madrid HPI: 11/15 06:45 This 69 yrs old Female presents to ER via EMS with complaints of Fall Injury. sw6 06:45 Details of fall: The patient fell from an upright position, while walking. Onset: The sw6 symptoms/episode began/occurred last night. The patient has experienced similar episodes in the past, several times. The patient presents from home with EMS for evaluation after several falls that occurred throughout the evening. She reports she fell because she was weak and her legs just gave out. She reports she did hit her head but denies any loss of consciousness. She does not take any blood thinners. She did need assistance by EMS to help her back up and to get her into her bed. She reports she did this several times before she decided to come to the ER for evaluation. She complains of weakness to her legs but denies any headache or neck pain. No chest pain or pressure. No shortness of breath. No medications given prior to arrival. She does have a history of heart failure as well as high cholesterol, high blood pressure and diabetes. No nausea or vomiting. No fevers or chills. Here for evaluation.. Historical: - Allergies: 06:12 No Known Allergies; vc1 - PMHx: 06:12 Chronic systolic heart failure; diabetes mellitus; Hypercholesterolemia; Hypertensive vc1 disorder; blind (Hypertensive disorder); Dementia; - PSHx: 06:12 Double bypass (Hypertensive disorder); vc1 - Immunization history:: Client reports receiving the 2nd dose of the Covid vaccine, Flu vaccine is up to date. - Infectious Disease History:: Denies. - Social history:: Smoking status: Patient/guardian denies using tobacco, but has a distant history of tobacco abuse. ROS: 06:45 Constitutional: Negative for fever, chills, and weight loss, Cardiovascular: Negative sw6 for chest pain, palpitations, and edema, Respiratory: Negative for shortness of breath, cough, wheezing, and pleuritic chest pain, Abdomen/GI: Negative for abdominal pain, nausea, vomiting, diarrhea, and constipation, 06:45 MS/extremity: Positive for Weakness to bilateral legs, 06:45 All other systems are negative, Exam: 06:45 Constitutional: This is a well developed, well nourished patient who is awake, alert, sw6 and in no acute distress. Cardiovascular: Regular rate and rhythm with a normal S1 and S2. No gallops, murmurs, or rubs. Normal PMI, no JVD. No pulse deficits. Respiratory: Lungs have equal breath sounds bilaterally, clear to auscultation and percussion. No rales, rhonchi or wheezes noted. No increased work of breathing, no retractions or nasal flaring. Abdomen/GI: Soft, non-tender, with normal bowel sounds. No distension or tympany. No guarding or rebound. No evidence of tenderness throughout. 06:45 Head/Face: Normocephalic, atraumatic. Chest/axilla: Normal chest wall appearance and motion. Nontender with no deformity. No lesions are appreciated. Skin: Warm, dry with normal turgor. Normal color with no rashes, no lesions, and no evidence of cellulitis. Psych: Awake, alert, with orientation to person, place and time. Behavior, mood, and affect are within normal limits. 06:45 Neck: C-spine: vertebral tenderness, is not appreciated, No vertebral body tenderness to her cervical spine., 06:45 Musculoskeletal/extremity: Pelvis is stable and not tender. She has full range of motion of her bilateral hips, knees and ankles as well as her shoulders, elbows and wrist.. 07:36 ECG was reviewed by the Attending Physician. rn Vital Signs: 06:10 BP 174 / 65; Pulse 67; Resp 16; Temp 98; Pulse Ox 95% ; Weight 88.45 kg; Height 5 ft. 2 vc1 in. ; Pain 10/10; 07:30 BP 169 / 58; Pulse 63; Resp 18; Pulse Ox 96% on R/A; ph 08:30 BP 173 / 66; Pulse 67; Resp 18; Pulse Ox 97% on R/A; ph 09:30 BP 144 / 51; Pulse 61; Resp 18; Pulse Ox 96% on R/A; ph 06:10 Body Mass Index 35.67 (88.45 kg, 157.48 cm) vc1 06:10 Pain Scale: Adult vc1 MDM: 06:17 Medical Screening Exam initiated 06:45 Differential diagnosis: abrasion, closed head injury, contusion, fracture, sprain, sw6 strain. Data reviewed: vital signs, nurses notes, EMS record. 07:00 Transition of care: After a detail discussion of the patient's case, care is sw6 transferred to London Madrid MD. ED course: The patient is signed out pending results of imaging, laboratory studies and reevaluation. Final disposition pending.. 08:59 Consideration of Admission/Observation Patient was admitted/placed on observation. rn Escalation of care including admission/observation considered. Counseling: I had a detailed discussion with the patient and/or guardian regarding the historical points, exam findings, and any diagnostic results supporting the discharge/admit diagnosis, lab results, radiology results, the need for further work-up and treatment in the hospital. Response to treatment: the patient's symptoms have mildly improved after treatment, and as a result, I will admit patient. ED course: X-ray pelvis showed possible subcapital femur fracture, dedicated films negative for fracture or dislocation per my interpretation. Patient with elevated troponin and most likely pulmonary edema on chest x-ray imaging, not pneumonia. Is 95% on room air. Denies chest pain. No ischemia on ECG. Will admit to hospital service for further care.. 08:59 Care significantly affected by the following chronic conditions: Hypertension, rn Congestive Heart Failure. 11/15 06:30 Order name: Basic Metabolic Panel; Complete Time: 08:28 11/15 06:30 Order name: CBC with Diff; Complete Time: 08:26 11/15 06:30 Order name: Magnesium; Complete Time: 08:28 11/15 06:30 Order name: Troponin HS; Complete Time: 08:28 11/15 06:30 Order name: Urinalysis w/ reflexes; Complete Time: 08:07 11/15 10:12 Order name: Magnesium EDTN 11/15 10:12 Order name: NT PRO-BNP EDTN 11/15 10:12 Order name: Phosphorus EDTN 11/15 10:12 Order name: Urinalysis w/ reflexes EDTN 11/15 10:12 Order name: CBC with Automated Diff [facility] 11/15 10:12 Order name: CBC with Automated Diff [facility] 11/15 10:12 Order name: CBC with Automated Diff [facility] 11/15 10:12 Order name: CBC with Automated Diff [facility] 11/15 10:12 Order name: Comprehensive Metabolic Panel [facility] 11/15 10:12 Order name: Comprehensive Metabolic Panel [facility] 11/15 10:12 Order name: Comprehensive Metabolic Panel [facility] 11/15 10:12 Order name: Comprehensive Metabolic Panel [facility] 11/15 10:12 Order name: Troponin High Sensitivity [facility] 11/15 10:12 Order name: Troponin High Sensitivity [facility] 11/15 10:12 Order name: Troponin High Sensitivity [facility] 11/15 10:12 Order name: Troponin High Sensitivity [facility] 11/15 12:41 Order name: Hemoglobin A1c [facility] 11/15 06:30 Order name: CT Head C Spine; Complete Time: 08:07 11/15 06:30 Order name: XRAY Chest (1 view); Complete Time: 08:07 11/15 06:30 Order name: Pelvis XRAY; Complete Time: 08:07 11/15 08:09 Order name: XRAY Hip RIGHT 2 view; Complete Time: 08:53 rn 11/15 10:12 Order name: CONS Physician Consult [facility] 11/15 10:12 Order name: Physical Therapy Consult [facility] 11/15 06:30 Order name: Cardiac monitoring; Complete Time: 07:27 11/15 06:30 Order name: EKG - Nurse/Tech; Complete Time: 07:27 11/15 06:30 Order name: IV Saline Lock; Complete Time: 07:51 11/15 06:30 Order name: Labs collected and sent; Complete Time: 07:51 11/15 06:30 Order name: O2 Per Protocol; Complete Time: 07:27 11/15 06:30 Order name: O2 Sat Monitoring; Complete Time: 07:27 EC:36 Rate is 60 beats/min. Rhythm is regular. QRS is positive in lead I and negative in lead rn aVF. TX interval is normal. QRS interval is normal. QT interval is normal. No Q waves. T waves are Normal. No ST changes noted. Clinical impression: NSR w/ Non-specific ST/T Changes. Interpreted by me. Reviewed by me. Administered Medications: No medications were administered Disposition Summary: 11/15/24 09:01 Hospitalization Ordered Notes: Hospitalization Status: Observation rn Provider: Del Pastor rn Condition: Stable rn Problem: new rn Symptoms: have improved rn Bed/Room Type: Standard rn Location: Telemetry/MedSurg (Inpatient)(11/15/24 17:05) Room Assignment: 428(11/15/24 17:38) [facility] Diagnosis - Weakness rn - Acute pulmonary edema rn Forms: - Medication Reconciliation Form rn - SBAR form rn - Leadership Thank You Letter rn Signatures: Dispatcher [employer] EDMS London Madrid MD MD rn Blanchard, Shelby, RN RN ss Raoul Fermin RN RN ja1 Urvashi Abdalla RN RN vc1 Keila Dent, RN RN [email or web address] Debo Anthony MD MD sw6 Corrections: (The following items were deleted from the chart) 06:14 06:12 PSHx: triple bypass (Hypertensive disorder); vc1 vc1 06:30 06:30 BASIC METABOLIC PANEL+C.LAB.BRZ ordered. EDMS EDMS 06:30 06:30 CBC+H.LAB.BRZ ordered. EDMS EDMS 06:30 06:30 MAGNESIUM+C.LAB.BRZ ordered. EDMS EDMS 06:30 06:30 Troponin High Sensitivity+C.LAB.BRZ ordered. EDMS EDMS 06:30 06:30 Urinalysis+U.LAB.BRZ ordered. EDMS EDMS 06:30 06:30 Chest Single View+RAD.RAD.BRZ ordered. EDMS EDMS 06:31 06:31 Pelvis+RAD.RAD.BRZ ordered. EDTN EDMS 10:38 09:01 Telemetry/MedSurg (observation) rn kb3 10:38 09:01 rn kb3 17:05 10:38 [facility] ER HOLD kb3 ss 17:05 10:38 ERHOLD- kb3 ss 17:12 17:05 411 ss ja1 17:19 17:12 428 ja1 ss 17:38 17:19 411 ss ja1
--- NOTE | 2024-11-15 09:02 | ER ---
Nurse's Notes [facility] Name: Indira Chavis Age: 69 yrs Sex: Female : 1955 Arrival Date: 11/15/2024 Time: 06:04 Bed 7 Private MD: Diagnosis: Weakness;Acute pulmonary edema Presentation: 11/15 06:10 Chief complaint: EMS states: Called for lift assist last night then she fell again. C/O vc1 pain to bilateral hips. Coronavirus screen: Client denies travel out of the [place] in the last 14 days. At this time, the client does not indicate any symptoms associated with coronavirus-19. Ebola Screen: Patient negative for fever greater than or equal to 101.5 degrees Fahrenheit, and additional compatible Ebola Virus Disease symptoms Patient denies exposure to infectious person. Patient denies travel to an Ebola-affected area in the 21 days before illness onset. No symptoms or risks identified at this time. Initial Sepsis Screen: Does the patient meet any 2 criteria? No. Patient's initial sepsis screen is negative. Does the patient have a suspected source of infection? No. Patient's initial sepsis screen is negative. Risk Assessment: Do you want to hurt yourself or someone else? Patient reports no desire to harm self or others. Onset of symptoms was November 15, 2024. 06:10 Method Of Arrival: EMS: [facility] vc1 06:10 Acuity: [place] 3 vc1 Triage Assessment: 06:15 General: Appears in no apparent distress. uncomfortable, Behavior is calm, cooperative, vc1 appropriate for age. Pain: Complains of pain in left hip and right hip. EENT: No deficits noted. No signs and/or symptoms were reported regarding the EENT system. Neuro: Level of Consciousness is awake, alert, obeys commands, Oriented to person, place, time, situation, Appropriate for age. Cardiovascular: Capillary refill < 3 seconds Patient's skin is warm and dry. Respiratory: Airway is patent Respiratory effort is even, unlabored, Respiratory pattern is regular, symmetrical. Musculoskeletal: Reports weakness in right leg and left leg pain in left hip and right hip. Historical: - Allergies: 06:12 No Known Allergies; vc1 - PMHx: 06:12 Chronic systolic heart failure; diabetes mellitus; Hypercholesterolemia; Hypertensive vc1 disorder; blind (Hypertensive disorder); Dementia; - PSHx: 06:12 Double bypass (Hypertensive disorder); vc1 - Immunization history:: Client reports receiving the 2nd dose of the Covid vaccine, Flu vaccine is up to date. - Infectious Disease History:: Denies. - Social history:: Smoking status: Patient/guardian denies using tobacco, but has a distant history of tobacco abuse. Screenin:28 [facility] ED Fall Risk Assessment (Adult) History of falling in the last 3 months, ph including since admission Yes- fall prone (multiple falls) (3 pts) Confusion or Disorientation No (0 pts) Intoxicated or Sedated No (0 pts) Impaired Gait Yes (1 pt) Mobility Assist Device Used Yes (1 pt) Altered Elimination Yes (1 pt) Score/Fall Risk Level 3 or more points = High Risk Oriented to surroundings, Maintained a safe environment, Hourly rounding (assess needs \T\ fall precautionary measures) done, Used ambulatory aids as needed (educated on \T\ assisted with). Abuse screen: Denies threats or abuse. Denies injuries from another. Nutritional screening: No deficits noted. Tuberculosis screening: No symptoms or risk factors identified. Assessment: 08:00 General: Appears in no apparent distress. Behavior is calm, cooperative. Pain: ph Complains of pain in right hip and left hip. Neuro: Level of Consciousness is awake, alert, obeys commands, Oriented to person, place, time, situation. Neuro: Reports weakness. Cardiovascular: Capillary refill < 3 seconds in bilateral fingers Patient's skin is warm and dry. Respiratory: Airway is patent Respiratory effort is even, labored, Respiratory pattern is regular, symmetrical. Derm: Skin is pink, warm \T\ dry. Vital Signs: 06:10 BP 174 / 65; Pulse 67; Resp 16; Temp 98; Pulse Ox 95% ; Weight 88.45 kg; Height 5 ft. 2 vc1 in. ; Pain 10/10; 07:30 BP 169 / 58; Pulse 63; Resp 18; Pulse Ox 96% on R/A; ph 08:30 BP 173 / 66; Pulse 67; Resp 18; Pulse Ox 97% on R/A; ph 09:30 BP 144 / 51; Pulse 61; Resp 18; Pulse Ox 96% on R/A; ph 06:10 Body Mass Index 35.67 (88.45 kg, 157.48 cm) vc1 06:10 Pain Scale: Adult vc1 ED Course: 06:09 Patient arrived in ED. vc1 06:12 Triage completed. vc1 06:14 Arm band placed on right wrist. vc1 06:15 Patient has correct armband on for positive identification. Bed in low position. Call vc1 light in reach. Pulse ox on. NIBP on. 06:16 Debo Anthony MD is Attending Physician. sw6 06:55 CT Head C Spine In Process Unspecified. EDMS 07:13 Attending Physician role handed off by Debo Anthony MD rn 07:13 London Madrid MD is Attending Physician. rn 07:15 Straight cath inserted, using sterile technique, 16 Fr. Specimen obtained. Patient al5 tolerated well. 07:27 Celine Herron RN is Primary Nurse. ph 07:42 XRAY Chest (1 view) In Process Unspecified. EDMS 07:42 Pelvis XRAY In Process Unspecified. EDMS 07:45 Inserted saline lock: 22 gauge in right upper arm, using aseptic technique. Blood ll1 collected. Flushed with 10 mL NS. 08:38 XRAY Hip RIGHT 2 view In Process Unspecified. EDMS 09:01 Del Pastor PA is Hospitalizing Provider. rn 10:10 No provider procedures requiring assistance completed. Patient admitted, IV remains in ph place. Administered Medications: No medications were administered Medication: 06:15 VIS not applicable for this client. vc1 Outcome: 09:01 Decision to Hospitalize by Provider. rn 11:00 Admitted to ER Hold. Please see [facility] for further documentation. ph 11:00 Condition: stable 11:00 Instructed on the need for admit, 18:18 Patient left the ED. ph Signatures: Dispatcher [employer] EDMS London Madrid MD MD rn Hall, Patricia, RN RN ph Alejandro Stovall RN RN ll1 Urvashi Abdalla RN RN vc1 Debo Anthony MD MD sw6 Madelin Go RN RN al5 Corrections: (The following items were deleted from the chart) 06:14 06:12 PSHx: triple bypass (Hypertensive disorder); vc1 vc1
--- NOTE | 2024-11-15 10:23 | P.HP ---
Certification for Inpatient Patient admitted to: Observation With expected LOS: <2 Midnights Patient will require the following post-hospital care: Jail (HH versus SNF) Practitioner: I am a practitioner with admitting privileges, knowledge of patient current condition, hospital course, and medical plan of care. Services: Services provided to patient in accordance with Admission requirements found in Title 42 Section 412.3 of the Code of Federal Regulations Patient History Date of Service: 11/15/24 Reason for admission: Fall/CHF exacerbation History of Present Illness: Is a 69-year-old female with past medical history of congestive heart failure, hypertension, hyperlipidemia,depression, hypothyroidism, diabetes type 2, blindness, and dementia reports to the ED after having 2 falls overnight with left groin pain. Patient states that the initial fall happened at 10:00 PM, without injuries, as she was walking through her home and her legs gave out. Second fall also happened without injury and was around 3 AM where she states her knees buckled and she fell to the floor. She reports that she has had multiple falls in the past and on one of these occurrences, she hit her head on the bathtub. ED workup includes hip XR showing: Diffuse osteopenia seen. No evidence of acute fracture, dislocation or AVN, a Pelvis XR with: Diffuse osteopenia. Mildly impacted subcapital fracture right proximal femur likely present. No dislocation or AVN findings,a CT head/cervical spine with No evidence of acute osseous abnormality of the cervical spine.CXR with Iapm-ap-vcprplee bilateral pulmonary opacities may represent pulmonary edema or pneumonia. The heart is upper limit of normal in size. Sternotomy wires present. No displaced fracture seen. Patient now being admitted for CHF exacerbation/PNA and further workup at this time Allergies No Known Allergies Allergy (Verified 07/05/24 14:49) Home medications list reviewed: Yes Home Medications: Aspirin [Aspirin EC 81 MG] 81 mg PO DAILY 08/31/20 Atorvastatin Calcium 40 mg PO DAILY AT SUPPER 08/31/20 Buspirone HCl [Buspar*] 5 mg PO BID 08/31/20 Citalopram Hydrobromide [Citalopram HBr] 40 mg PO DAILY 08/31/20 Empagliflozin [Jardiance] 25 mg PO DAILY 08/31/20 Furosemide 20 mg PO DAILY 08/31/20 Insulin Regular, Human [Novolin R] See Rx Instructions .ROUTE .COMPLEX 08/31/20 Levothyroxine [Synthroid*] 88 mcg PO DAILY 08/31/20 Liothyronine [Cytomel*] 25 mcg PO 0600 08/31/20 Trazodone [Desyrel*] 100 mg PO BEDTIME PRN 08/31/20 lisinopriL [Zestril] 40 mg PO DAILY 08/31/20 Amlodipine [Norvasc*] 10 mg PO DAILY 06/06/22 Donepezil [Aricept*] 10 mg PO BID 06/06/22 Ferrous Sulfate [Ferrous Sulfate*] 325 mg PO DAILY 06/06/22 Gabapentin 600 mg PO BID 06/06/22 Insulin NPH Human [Novolin N (Humulin N)*] 25 units SQ DAILY 6PM 06/06/22 Memantine HCl [Namenda] 5 mg PO DAILY 06/06/22 Amox/Clavulanate [Augmentin 875-125 Tab*] 1 each PO BID #14 tab 06/09/22 Minocycline HCl 100 mg PO BID #14 tab 12/24/22 Mupirocin Oint [Bactroban 2% Ointment] 15 gm TP TID #1 tube 12/24/22 Pantoprazole [Protonix Tab] 40 mg PO BID #60 tab 12/24/22 Sulfamethoxazole/Trimethoprim [Bactrim Ds Tablet] 1 each PO DAILY #7 tab 12/24/22 predniSONE [Deltasone] 20 mg PO DAILY #5 tab 12/24/22 - Past Medical/Surgical History Diabetic: Yes -: diabetes -: CHF -: HLD -: HTN -: hypothyroidism -: CAD -: Depression -: Blind -: Falls -: CABG -: tubal ligation -: wrist surgery Psychosocial/ Personal History: Patient lives at home with family. - Social History Smoking Status: Never smoker Alcohol use: No CD- Drugs: No Caffeine use: No Place of Residence: Home Review of Systems 10-point ROS is otherwise unremarkable General: Weakness Eyes: As per HPI (Blind ) Respiratory: SOB with Excertion Cardiovascular: Orthopnea Gastrointestinal: Abdominal Pain, Constipation Genitourinary: Frequency Musculoskeletal: Pedal edema Integumentary: Other ("skinned Left knee") Neurological: Weakness, Incoordination Physical Examination - Physical Exam General: Oriented x3 HEENT: Atraumatic, PERRLA, Mucous membr. moist/pink, EOMI, Sclerae nonicteric Neck: Supple, 2+ carotid pulse no bruit, No LAD, Without JVD or thyroid abnormality Respiratory: Normal air movement, Diminished Cardiovascular: Regular rate/rhythm, Normal S1 S2, Edema (BLE;Dependent ) Capillary refill: <2 Seconds Gastrointestinal: Hypoactive, No ascites, No tenderness, Tenderness Musculoskeletal: Tenderness Integumentary: No rashes Neurological: Normal speech, Normal strength at 5/5 x4 extr, Normal tone, Normal affect Lymphatics: No axilla or inguinal lymphadenopathy External genitalia: Deferred Rectal: Deferred - Studies Laboratory Data (last 24 hrs) 11/15/24 11/15/24 07:45 07:45 WBC 10.70 Hgb 12.4 Hct 36.7 Plt Count 163 Sodium 139 Potassium 3.8 BUN 20 H Creatinine 1.19 H Glucose 88 Magnesium 2.1 Assessment and Plan - Plan Falls Left leg/groin pain Legally Blind - Hip XR showing: Diffuse osteopenia seen. No evidence of acute fracture, disloc ation or AVN, a Pelvis XR with: Diffuse osteopenia. Mildly impacted subcapital fracture right proximal femur likely present. No dislocation or AVN findings - CT head/cervical spine with No evidence of acute osseous abnormality of the cervical spine. - PT consult ordered - Acetaminophen PRN for pain control - Fall risk precautions CHF exacerbation CAP Elevated Troponin - CXR with Cigi-vx-kgfjerun bilateral pulmonary opacities may represent pulmonary edema or pneumonia. The heart is upper limit of normal in size. Sternotomy wires present. No displaced fracture seen. - Cardiology consult ordered, appreciate recommendations - Strict I&0 q4h with pure-wick for now - Cardiac diet with 1200mL fluid restriction - Reports Lasix PO 20mg as home med, resume once verified - Consider echo - Initial Troponin 94.8, continue to trend - BNP ordered and reviewed; 409 - Monitor on telemetry - Monitor daily weights - Monitor electrolytes - Rocephin/Azithro for now, WBC 10.7, continue to monitor Constipation, chronic - Denies taking medications at home - Senna BID for now - Consider further imaging if worsening Diabetes type II - Reports insulin use at home with Novlin - Accu-check ACHS - A1C ordered - Carb controlled diet - Insulin Sliding scale for now Hypertension, chronic - Continue home medications once verified - Monitor BP per unit protocol Hyperlipidemia, chronic History of CAD - Continue home statin once verified History of Hypothyroidism - Continue home Levothyroxine once verified - Repeat TSH/T4 ordered for AM DVT Ppx: Heparin GI Ppx: Protonix Code Status: Full Code Discharge Plan: Other (HH versus SNF possible) Plan to discharge in: 24 Hours - Advance Directives Does patient have a Living Will: No Does patient have a Durable POA for Healthcare: No - Code Status/Comfort Care Code Status Assessed: Yes (FULL CODE )
[2024-11-15] MEDS ORDERED: D10W 125 ML IV PRN (10:52)
[2024-11-15] MEDS ORDERED: GLUCAGON 1 MG/VIAL IM PRN (10:52)
[2024-11-15] MEDS: DOCUSATE NA/SENNA CONC 1 TAB PO SCH (10:57)
[2024-11-15] MEDS: INSULIN REGULAR (HUMAN) 100 UNIT/ML SQ SCH (11:30)
[2024-11-15 12:00] VITALS: BMI 35.6
[2024-11-15 12:07] LABS: Phosphorus 2.5 mg/dL (2.5-4.9)
[2024-11-15 12:08] LABS: Magnesium 2.2 mg/dL (1.6-2.4)
[2024-11-15] MEDS ORDERED: ACETAMINOPHEN 325 MG TABLET ONE (13:34)
[2024-11-15] MEDS: ACETAMINOPHEN 325 MG TABLET PO PRN (14:04)
[2024-11-15] MEDS: FUROSEMIDE 40 MG/4 ML VIAL IV SCH (15:27)
[2024-11-15] MEDS: HEPARIN 5000 UNIT/ML 1 ML VIAL SQ SCH (17:00)
[2024-11-15] MEDS ORDERED: HEPARIN 5000 UNIT/ML 1 ML VIAL ONE (17:36)
[2024-11-15] MEDS ORDERED: FUROSEMIDE 40 MG/4 ML VIAL ONE (17:37)
[2024-11-15] MEDS ORDERED: OXYCODONE HCL 5 MG TAB ONE (17:37)
[2024-11-15] MEDS: OXYCODONE HCL 5 MG TAB PO PRN (17:52)
[2024-11-15] MEDS ORDERED: lisinopriL 20 MG TAB PO SCH (21:00)
[2024-11-15] MEDS: MEMANTINE HCL 10 MG TABLET PO SCH ×2 (21:00→21:35)
[2024-11-15] MEDS ORDERED: CEFTRIAXONE 1,000 MG in NA CHLORIDE 0.9% 50 ML IVPB SCH (21:00)
[2024-11-15] MEDS ORDERED: MEMANTINE HCL 10 MG TABLET PO SCH (21:00)
[2024-11-15] MEDS: ATORVASTATIN 40 MG TAB PO SCH (21:34)
[2024-11-15] MEDS: GABAPENTIN 300 MG CAP PO SCH (21:34)
[2024-11-15] MEDS: lisinopriL 20 MG TAB PO SCH (21:34)
[2024-11-15] MEDS: DONEPEZIL HCL 5 MG TAB PO SCH (21:34)
[2024-11-15] MEDS: BUSPIRONE HCL 5 MG TABLET PO SCH (21:35)
[2024-11-15] MEDS: TRAZODONE 50 MG TABLET PO PRN (21:39)
[2024-11-16] MEDS: FLU (Fluarix Triv) TS24-25(6MOS UP)/PF 45 MCG/0.5 ML Syringe IM ONE (07:30)
[2024-11-16] MEDS: PNEUMOCOCCAL VACCINE 0.5 ML IMVAC ONE (08:00)
[2024-11-16] MEDS ORDERED: AZITHROMYCIN IV 500 MG in NA CHLORIDE 0.9% 250 ML IVPB SCH (09:00)
[2024-11-16] MEDS: hydroCHLOROthiazide 25 MG TAB PO SCH (09:27)
[2024-11-16 10:22] LABS: Absolute Eosinophils 0.1 K/uL (0-0.5); Absolute Lymphocytes (CBC) 1.6 K/uL (0.7-4.9); Absolute Monocytes 0.9 K/uL (0.1-1.3); Basophils % 0.4 % (0-1.3); Eosinophils % 0.9 % (0-4.4); Hematocrit 37.8 % (36.0-45.0); Hemoglobin 12.8 g/dL (12.0-15.0); Lymphocytes % 15.1 % (15.3-44.8); MCH 33.7 pg (27.0-35.0); MCHC 33.9 g/dL (32.0-36.0); MCV 99.4 fL (80-100); MPV 9.2 fL (7.6-11.3); Monocytes % 8.2 % (3.3-12.3); Neutrophils % 75.4 % (41.7-73.7); Platelets 183 thou/uL (152-406); Red Cell Distribution Width 14.6 % (12.1-15.2)
[2024-11-16 11:16] LABS: Albumin 3.2 g/dL (3.4-5.0); Albumin/Globulin Ratio 0.9 (1.1-1.8); Anion Gap 12.9 mEq/L (5.0-15.0); Bilirubin Total 0.7 mg/dL (0.2-1.0); Globulin 3.7 g/dL (2.3-3.5); Phosphorus 3.3 mg/dL (2.5-4.9); Potassium 3.9 mEq/L (3.5-5.1); Protein, Total 6.9 g/dL (6.4-8.2); Thyroid Stimulating Hormone 3.21 uIU/mL (0.358-3.740)
--- NOTE | 2024-11-16 13:30 | ECHO ---
HEIGHT: 5 ft 2 in WEIGHT: 195 lb 0 oz DATE OF STUDY: 11/16/[address]: Del Pastor 2-DIMENSIONAL: YES M.MODE: YES DOPPLER: YES COLOR FLOW: YES TDS: PORTABLE: YES DEFINITY: BUBBLE STUDY: DIAGNOSIS: CONGESTIVE HEART FAILURE CARDIAC HISTORY: CATHERIZATION: YES SURGERY: YES PROSTHETIC VALVE: PACEMAKER: MEASUREMENTS (cm) DIASTOLIC (NORMALS) SYSTOLIC (NORMALS) IVSd 1.1 (0.6-1.2) LA Diam 3.1 (1.9-4.0) LVEF 60-65% LVIDd 3.5 (3.5-5.7) LVIDs 2.3 (2.0-3.5) %FS 34% LVPWd 1.2 (0.6-1.2) Ao Diam 3.2 (2.0-3.7) 2 DIMENSIONAL ASSESSMENT: RIGHT ATRIUM: NORMAL LEFT ATRIUM: NORMAL RIGHT VENTRICLE: NORMAL LEFT VENTRICLE: NORMAL TRICUSPID VALVE: NORMAL MITRAL VALVE: MITRAL ANNULAR CALCIFICATION PULMONIC VALVE: NORMAL AORTIC VALVE: CALCIFIED AORTIC VALVE, NO AORTIC STENOSIS PERICARDIAL EFFUSION: NONE AORTIC ROOT: NORMAL LEFT VENTRICULAR WALL MOTION: NORMAL DOPPLER/COLOR FLOW: SEE BELOW COMMENTS: 1. NORMAL LEFT VENTRICULAR EJECTION FRACTION 60-65% 2. NORMAL WALL MOTION 3. GRADE I DIASTOLIC DYSFUNCTION 4. MILD MITRAL ANNULAR CALCIFICATION TECHNOLOGIST: EMMA ARRINGTON
--- NOTE | 2024-11-16 15:59 | P.PN ---
Subjective Date of Service: 11/16/24 Chief Complaint: Fall/CHF exacerbation Subjective: No chest pain or shortness of breath. No nausea or vomiting. No abdominal pain. Looks comfortable in the bed. c/o b/l hip pain Objective: General appearance: Alert and comfortable CVS: Normal S1 and S2 Lungs: Clear to auscultation bilaterally Abdomen: Soft, bowel sounds present, no tenderness Extremities: minimal lower extremity edema, better than yssterday. moves both legs well Physical Examination - Vital Signs Temperature: 98.1 F Blood Pressure: 171/67 Pulse: 81 Respirations: 17 Pulse Ox (%): 93 Assessment And Plan - Plan Falls Left leg/groin pain Legally Blind - Hip XR showing: Diffuse osteopenia seen. No evidence of acute fracture, dislocation or AVN, a Pelvis XR with: Diffuse osteopenia. Mildly impacted subcapital fracture right proximal femur likely present. No dislocation or AVN findings - CT head/cervical spine with No evidence of acute osseous abnormality of the cervical spine. - PT consult ordered - PRN meds for pain control - Fall risk precautions Acute on chornic CHF Elevated Troponin - CXR with Tptp-sc-vxdaginr bilateral pulmonary opacities may represent pulmonary edema or pneumonia. The heart is upper limit of normal in size. Sternotomy wires present. No displaced fracture seen. - Cardiology consult ordered, appreciate recommendations - no ABX, given lasix, edema improving, hold lasix -echo 60-65% EF, G1DD Constipation, chronic - cont bowel meds Diabetes type II - Reports insulin use at home with Novlin - Accu-check ACHS - Carb controlled diet - Insulin Sliding scale for now Hypertension, chronic - Continue lisin, add HCTZ Hyperlipidemia, chronic History of CAD - Continue home statin History of Hypothyroidism - Continue home Levothyroxine Plan d/w pt and nursing staff at bedside
--- NOTE | 2024-11-16 19:56 | CON ---
Date of Consultation: 11/16/2024 Reason For Consultation: CHF exacerbation. History Of Present Illness: A 69-year-old female, history of congestive heart failure, hypertension, diabetes, dyslipidemia, dementia. She was brought into the in the ED after 2 falls and she was comp laining of shortness of breath and significant lower extremity edema and she was diagnosed with CHF e xacerbation, started on diuretics. Past Medical History: As outlined above in the HPI. Medications: Refer consult sheet for detailed list. Allergies: NO KNOWN DRUG ALLERGIES. Family History: No premature coronary artery disease or cancer. Social History: Does not smoke or drink. Does not use any drugs. Review of Systems: All systems reviewed are negative except as mentioned in HPI. Physical Examination: Vital Signs: Reviewed. Head And Neck: Pupils are equal, reactive to light. Intact eye movements. No JVD. No cervical lym phadenopathy. Neck is supple. Thyroid is not enlarged. Lungs: Decreased breathing sounds with faint crackles in the bases. No accessory muscle use or musc le retraction. Heart: Regular. No extra sounds. Abdomen: Soft, nontender. Bowel sounds positive. No organomegaly. No masses or hernia. No rigidi ty or rebound. Extremities: Edema bilaterally. No clubbing or cyanosis. Intact pulses. Skin: No rash. No nodules. Neurologic: Alert, awake, and oriented x3. No acute focal deficits appreciated. Investigations: BUN 18, creatinine 1.02. Troponin was 95. Hemoglobin is 12.8. The chest x-ray rufino wed pulmonary edema. Assessment/recommendations: 1. Acute on chronic congestive heart failure exacerbation. It is diastolic dysfunction as ejection f raction is normal. Agree with diuresis to continue with Lasix 40 mg. However, I would do twice a da y. Monitor BUN, creatinine, electrolytes. 2. Elevated troponin. There is no active chest pain, however, ischemia workup is warranted. Recomme nd Lexiscan nuclear stress test and an angiogram will be done if that is abnormal. 3. Hypertension. Blood pressure is very high. She is fluid overloaded. Adjust Lasix and carefully monitor BUN, creatinine, electrolytes. 4. Dyslipidemia, on statin, to continue. SR/MODL Voice ID: [id number] Report ID: [id number]
[2024-11-17] MEDS: LEVOTHYROXINE SOD 0.088 MG TAB PO SCH (05:45)
[2024-11-17 06:49] LABS: Absolute Eosinophils 0.1 K/uL (0-0.5); Absolute Lymphocytes (CBC) 2.8 K/uL (0.7-4.9); Absolute Monocytes 0.8 K/uL (0.1-1.3); Absolute Neutrophil 3.9 K/uL (1.8-8.0); Basophils % 0.4 % (0-1.3); Eosinophils % 1.7 % (0-4.4); Hematocrit 39.7 % (36.0-45.0); Hemoglobin 13.2 g/dL (12.0-15.0); Lymphocytes % 36.8 % (15.3-44.8); MCH 33.2 pg (27.0-35.0); MCHC 33.2 g/dL (32.0-36.0); MPV 9.1 fL (7.6-11.3); Monocytes % 10.4 % (3.3-12.3); Neutrophils % 50.7 % (41.7-73.7); Nucleated Red Blood Cells % 0.1 % (0-0); Platelets 197 thou/uL (152-406); RBC Red Blood Cell Count 3.97 M/uL (3.86-4.86)
[2024-11-17 07:08] LABS: Albumin 3.2 g/dL (3.4-5.0); Albumin/Globulin Ratio 0.9 (1.1-1.8); Anion Gap 8.5 mEq/L (5.0-15.0); Bilirubin Total 0.7 mg/dL (0.2-1.0); Globulin 3.6 g/dL (2.3-3.5); Potassium 3.5 mEq/L (3.5-5.1); Protein, Total 6.8 g/dL (6.4-8.2)
[2024-11-17] MEDS: ASPIRIN EC 81 MG TAB PO SCH (08:40)
[2024-11-17] MEDS: CITALOPRAM 10 MG TABLET PO SCH (08:41)
[2024-11-17] MEDS: INSULIN GLARGINE 100 UNIT/ML SQ SCH (08:52)
--- NOTE | 2024-11-17 13:48 | P.PN ---
Subjective Date of Service: 11/17/24 Chief Complaint: Fall/CHF exacerbation Subjective: No chest pain or shortness of breath. No nausea or vomiting. No abdominal pain. Looks comfortable in the bed. c/o b/l hip pain Objective: General appearance: Alert and comfortable CVS: Normal S1 and S2 Lungs: Clear to auscultation bilaterally Abdomen: Soft, bowel sounds present, no tenderness Extremities: lower extremity edema almsot resolved Physical Examination - Vital Signs Temperature: 98.3 F Blood Pressure: 137/55 Pulse: 64 Respirations: 18 Pulse Ox (%): 90 - Studies Laboratory Data (last 24 hrs) 11/17/24 11/17/24 06:18 06:18 WBC 7.70 Hgb 13.2 Hct 39.7 Plt Count 197 Sodium 135 L Potassium 3.5 BUN 26 H Creatinine 1.54 H Glucose 211 H Magnesium 2.0 Total Bilirubin 0.7 AST 168 H ALT 50 Alkaline Phosphatase 52 Assessment And Plan - Plan Falls Left leg/groin pain Legally Blind - Hip XR showing: Diffuse osteopenia seen. No evidence of acute fracture, dislocation or AVN, a Pelvis XR with: Diffuse osteopenia. Mildly impacted subcapital fracture right proximal femur likely present. No dislocation or AVN findings - CT head/cervical spine with No evidence of acute osseous abnormality of the cervical spine. - PT consult ordered - PRN meds for pain control - Fall risk precautions Acute on chornic CHF Elevated Troponin - CXR with Ubis-xk-xccpriiz bilateral pulmonary opacities may represent pulmonary edema or pneumonia. The heart is upper limit of normal in size. Sternotomy wires present. No displaced fracture seen. - Cardiology consult ordered, appreciate recommendations - no ABX, given lasix, edema improving, hold lasix due to creat bump -echo 60-65% EF, G1DD Constipation, chronic - cont bowel meds Diabetes type II - Reports insulin use at home - Accu-check ACHS - Carb controlled diet - Insulin Sliding scale for now -added lantus Hypertension, chronic - Continue lisin, and HCTZ Hyperlipidemia, chronic History of CAD - Continue home statin History of Hypothyroidism - Continue home Levothyroxine Plan d/w pt and nursing staff at bedside
[2024-11-18 06:24] LABS: Absolute Eosinophils 0.2 K/uL (0-0.5); Absolute Lymphocytes (CBC) 2.4 K/uL (0.7-4.9); Absolute Monocytes 0.8 K/uL (0.1-1.3); Absolute Neutrophil 4.4 K/uL (1.8-8.0); Basophils % 0.2 % (0-1.3); Hematocrit 38.8 % (36.0-45.0); Hemoglobin 13.1 g/dL (12.0-15.0); MCH 33.5 pg (27.0-35.0); MCHC 33.8 g/dL (32.0-36.0); MCV 99.2 fL (80-100); MPV 9.6 fL (7.6-11.3); Monocytes % 10.4 % (3.3-12.3); Neutrophils % 56.4 % (41.7-73.7); Nucleated Red Blood Cells % 0.1 % (0-0); Platelets 201 thou/uL (152-406); RBC Red Blood Cell Count 3.91 M/uL (3.86-4.86); Red Cell Distribution Width 14.1 % (12.1-15.2)
[2024-11-18 06:30] LABS: Albumin 3.1 g/dL (3.4-5.0); Albumin/Globulin Ratio 0.9 (1.1-1.8); Anion Gap 9.8 mEq/L (5.0-15.0); Bilirubin Total 0.5 mg/dL (0.2-1.0); Globulin 3.6 g/dL (2.3-3.5); Potassium 3.8 mEq/L (3.5-5.1); Protein, Total 6.7 g/dL (6.4-8.2)
--- NOTE | 2024-11-18 12:48 | P.PN ---
Subjective Date of Service: 11/18/24 Chief Complaint: Fall/CHF exacerbation Subjective: No chest pain or shortness of breath. No nausea or vomiting. No abdominal pain. Looks comfortable in the bed. c/o b/l hip pain Objective: General appearance: Alert and comfortable CVS: Normal S1 and S2 Lungs: Clear to auscultation bilaterally Abdomen: Soft, bowel sounds present, no tenderness Extremities: lower extremity edema almsot resolved Physical Examination - Vital Signs Temperature: 98 F Blood Pressure: 146/65 Pulse: 61 Respirations: 18 Pulse Ox (%): 91 Assessment And Plan - Plan 69-year-old patient admitted with fall and hip pain, imaging negative for fractures, she was found to have elevated troponin, acute on chronic chronic heart failure, given diuretics, now she has mild TATYANA, medications on hold, she probably can be discharged in the next 1 or 2 days if labs stable. Falls Left leg/groin pain Legally Blind - Hip XR showing: Diffuse osteopenia seen. No evidence of acute fracture, dislocation or AVN, a Pelvis XR with: Diffuse osteopenia. Mildly impacted subcapital fracture right proximal femur likely present. No dislocation or AVN findings - CT head/cervical spine with No evidence of acute osseous abnormality of the cervical spine. - PT consult ordered - PRN meds for pain control - Fall risk precautions Acute on chornic CHF Elevated Troponin - CXR with Wpve-wz-dtsawmyi bilateral pulmonary opacities may represent pulmonary edema or pneumonia. The heart is upper limit of normal in size. Sternotomy wires present. No displaced fracture seen. - Cardiology consult ordered, appreciate recommendations - no ABX, given lasix, edema improving, hold lasix due to creat bump -echo 60-65% EF, G1DD Constipation, chronic - cont bowel meds Diabetes type II -Noted high blood sugars, continue Lantus, add mealtime insulin. Hypertension, chronic - hold lisin, and HCTZ due to creatinine bump -As needed IV hydralazine for now. Hyperlipidemia, chronic History of CAD - Continue home statin History of Hypothyroidism - Continue home Levothyroxine TATYANA: Due to Lasix, lisinopril and HCTZ, hold medications for now, monitor renal function closely. Plan d/w pt and nursing staff at bedside
[2024-11-18] MEDS: INSULIN LISPRO 100 UNIT/1 ML SQ SCH (13:54)
[2024-11-18] MEDS: HYDRALAZINE HCL 20 MG/ML VIAL IV PRN (23:08)
[2024-11-19 06:43] LABS: Absolute Basophils 0.1 K/uL (0-0.5); Absolute Eosinophils 0.1 K/uL (0-0.5); Absolute Lymphocytes (CBC) 1.9 K/uL (0.7-4.9); Absolute Monocytes 0.7 K/uL (0.1-1.3); Absolute Neutrophil 5.8 K/uL (1.8-8.0); Basophils % 0.6 % (0-1.3); Eosinophils % 1.1 % (0-4.4); Hematocrit 43.4 % (36.0-45.0); Hemoglobin 14.2 g/dL (12.0-15.0); Lymphocytes % 21.9 % (15.3-44.8); MCH 32.7 pg (27.0-35.0); MCHC 32.7 g/dL (32.0-36.0); MPV 8.5 fL (7.6-11.3); Monocytes % 8.5 % (3.3-12.3); Neutrophils % 67.9 % (41.7-73.7); Platelets 217 thou/uL (152-406); RBC Red Blood Cell Count 4.34 M/uL (3.86-4.86); Red Cell Distribution Width 14.2 % (12.1-15.2)
[2024-11-19 07:03] LABS: Anion Gap 8.2 mEq/L (5.0-15.0); Potassium 4.2 mEq/L (3.5-5.1)
--- NOTE | 2024-11-19 10:07 | P.PN ---
Subjective Date of Service: 11/19/24 Chief Complaint: Fall/CHF exacerbation Subjective: No new changes, No C/O voiced, Tolerating diet, Ambulating, Improving Review of Systems 10-point ROS is otherwise unremarkable Physical Examination - Vital Signs Temperature: 97.8 F Blood Pressure: 155/79 Pulse: 67 Respirations: 17 Pulse Ox (%): 94 - Physical Exam General: Alert, In no apparent distress HEENT: Atraumatic, PERRLA, EOMI Neck: Supple, JVD not distended Respiratory: Clear to auscultation bilaterally, Normal air movement Cardiovascular: Regular rate/rhythm, Normal S1 S2 Gastrointestinal: Normal bowel sounds, No tenderness Musculoskeletal: No tenderness Integumentary: No rashes Neurological: Normal speech, Normal tone, Normal affect Lymphatics: No axilla or inguinal lymphadenopathy - Studies Medications List Reviewed: Yes Assessment And Plan - Current Problems (Diagnosis) (1) CAD (coronary artery disease) Current Visit: Yes Status: Acute Plan: Patient had a recent coronary angiogram that shown significant CAD with patent grafts. continue ASA 81 mg daily continue lipitor 40 mg daily No further cardiac work up needed. (2) HTN (hypertension) Current Visit: No Status: Chronic Plan: add Coreg 6.25 mg po BID Resume patient home lisinopril at lower dose of 20 mg daily continue to monitor. Qualifiers: Hypertension type: primary hypertension Qualified Code(s): I10 - Essential (primary) hypertension (3) Hyperlipidemia Current Visit: No Status: Chronic Plan: lipitor 40 mg daily Cardiology will sign off, please call with any questions. Qualifiers: Hyperlipidemia type: mixed hyperlipidemia Qualified Code(s): E78.2 - Mixed hyperlipidemia
--- NOTE | 2024-11-19 11:35 | EKG ---
Test Date: 2024-11-15 Test Time: 06:56:05 Manager Rn: GAETANO MEASUREMENT RESULTS: Intervals: Rate: 60 AK: 186 QRSD: 104 QT: 404 QTc: 404 Goff: P: 49 AK: 186 QRS: -37 T: -81 INTERPRETIVE STATEMENTS: Normal sinus rhythm Left axis deviation Abnormal ECG Compared to ECG 07/05/2024 15:57:48 Sinus bradycardia no longer present Incomplete right bundle-branch block no longer present Left ventricular hypertrophy no longer present Early repolarization no longer present Electronically Signed On 11-19-24 11:24:30 CDT by Adrien Schmidt
[2024-11-19 15:57] VITALS: O2SAT 92
[2024-11-19 16:32] VITALS: BP 162/65; TEMP 98
--- NOTE | 2024-11-29 12:22 | P.DS ---
Discharge Date: 11/19/24 Disposition: ROUTINE DISCHARGE Discharge Condition: GOOD Reason for Admission: Fall/CHF exacerbation Brief History of Present Illness: Is a 69-year-old female with past medical history of congestive heart failure, hypertension, hyperlipidemia,depression, hypothyroidism, diabetes type 2, blindness, and dementia reports to the ED after having 2 falls overnight with left groin pain. Patient states that the initial fall happened at 10:00 PM, without injuries, as she was walking through her home and her legs gave out. Second fall also happened without injury and was around 3 AM where she states her knees buckled and she fell to the floor. She reports that she has had multiple falls in the past and on one of these occurrences, she hit her head on the bathtub. ED workup includes hip XR showing: Diffuse osteopenia seen. No zeb dence of acute fracture, dislocation or AVN, a Pelvis XR with: Diffuse osteopenia. Mildly impacted subcapital fracture right proximal femur likely present. No dislocation or AVN findings,a CT head/cervical spine with No evidence of acute osseous abnormality of the cervical spine.CXR with Pprx-ca-uzxgdgse bilateral pulmonary opacities may represent pulmonary edema or pneumonia. The heart is upper limit of normal in size. Sternotomy wires present. No displaced fracture seen. Patient now being admitted for CHF exacerbation/PNA and further workup at this time Hospital Course: Patient was seen by Cardiology and clinically patient doing well. Patient was diuresed and patient without any complaints. At this time, patient is stable for discharge with outpatient follow-up. Vital Signs/Physical Exam: Temp Pulse Resp BP Pulse Ox 98 F 66 18 162/65 H 94 11/19/24 16:00 11/19/24 16:00 11/19/24 16:13 11/19/24 16:00 11/19/24 16:13 General: Alert, In no apparent distress, Oriented x3 Laboratory Data at Discharge: WBC 8.60 thou/uL (4.3-10.9) 11/19/24 06:31 Hgb 14.2 g/dL (12.0-15.0) D 11/19/24 06:31 Hct 43.4 % (36.0-45.0) 11/19/24 06:31 Plt Count 217 thou/uL (152-406) 11/19/24 06:31 Sodium 133 mEq/L (136-145) L 11/19/24 06:31 Potassium 4.2 mEq/L (3.5-5.1) 11/19/24 06:31 BUN 42 mg/dL (7-18) H 11/19/24 06:31 Creatinine 1.30 mg/dL (0.55-1.02) H 11/19/24 06:31 Glucose 236 mg/dL (74-106) H 11/19/24 06:31 Phosphorus 3.3 mg/dL (2.5-4.9) 11/16/24 10:06 Magnesium 2.0 mg/dL (1.6-2.4) 11/17/24 06:18 Total Bilirubin 0.5 mg/dL (0.2-1.0) 11/18/24 05:53 AST 160 U/L (15-37) H 11/18/24 05:53 ALT 51 U/L (13-56) 11/18/24 05:53 Alkaline Phosphatase 49 U/L (45-117) 11/18/24 05:53 Home Medications: Aspirin [Aspirin EC 81 MG] 81 mg PO DAILY 08/31/20 Atorvastatin Calcium 40 mg PO DAILY AT SUPPER 08/31/20 Buspirone HCl [Buspar*] 5 mg PO BID 08/31/20 Citalopram Hydrobromide [Citalopram HBr] 40 mg PO DAILY 08/31/20 Empagliflozin [Jardiance] 25 mg PO DAILY 08/31/20 Insulin Regular, Human [Novolin R] See Rx Instructions .ROUTE .COMPLEX 08/31/20 Levothyroxine [Synthroid*] 88 mcg PO DAILY 08/31/20 Trazodone [Desyrel*] 100 mg PO BEDTIME PRN 08/31/20 lisinopriL [Zestril] 40 mg PO DAILY 08/31/20 Amlodipine [Norvasc*] 10 mg PO DAILY 06/06/22 Donepezil [Aricept*] 10 mg PO BID 06/06/22 Gabapentin 600 mg PO BID 06/06/22 Insulin NPH Human [Novolin N (Humulin N)*] 25 units SQ DAILY 6PM 06/06/22 Memantine HCl [Namenda] 5 mg PO DAILY 06/06/22 Physician Discharge Instructions: -DC IV and DC home -Follow-up with PCP in 1 to 2 weeks -Follow-up with Cardiology in 1 to 2 weeks -Please call Dr. Butler at [phone] if any questions regarding hospital stay -Please call nursing station at [phone] if any nursing or medication questions -Return to the emergency room if symptoms worsen Diet: AHA Activity: Fall precautions Followup: Adrien Schmidt MD [ACTIVE - CAN ADMIT] - 1-2 Weeks (Call for appointment.) Cindy Long MD [Primary Care Provider] - 1-2 Weeks (Call for appointment.) Time spent managing pt's care (in minutes): 35
== END 2024-11-19 18:00 | disposition home or self-care (01) | DRG 291 ==
LOC: ER 06:04 → ERHOLD 10:05 → 4TH 17:57 → OBSVTOIN 11-17 12:33
PROVIDERS: ADMIT Internal Medicine; ATTEND Hospitalist
DX: I11.0 Hypertensive heart disease with heart failure (principal); I50.23 Acute on chronic systolic (congestive) heart failure; J18.9 Pneumonia, unspecified organism; E03.9 Hypothyroidism, unspecified; E78.2 Mixed hyperlipidemia; M79.605 Pain in left leg; K59.09 Other constipation; H54.8 Legal blindness, as defined in USA; E11.9 Type 2 diabetes mellitus without complications; F03.90 Unspecified dementia, unspecified severity, without behavioral disturbance, psychotic disturbance, mood disturbance, and anxiety; R29.6 Repeated falls; R10.30 Lower abdominal pain, unspecified; R79.89 Other specified abnormal findings of blood chemistry; Z91.81 History of falling; Z79.82 Long term (current) use of aspirin; Z79.4 Long term (current) use of insulin; Z79.52 Long term (current) use of systemic steroids; Z79.890 Hormone replacement therapy; Z79.899 Other long term (current) drug therapy; Z87.891 Personal history of nicotine dependence
CPT/HCPCS: 36415; 51702; 70450; 71045; 72125; 72170; 80048; 80053; 81001; 82947; 83036; 83735; 83880; 84100; 84439; 84443; 84484; 85025; 90656; 90732; 93005; 93306; 97110; 97116; 97161; 97530; 99285; G0378; J0360; J1644; J1815; J1940